=== PATIENT | female | born 1935 | race Caucasian/White ===

== ENCOUNTER 2018-01-25 08:43 | Day surgery (SDC) | payer MEDICARE, OTHER, SELFPAY ==
[2018-01-25 09:42] VITALS: BP 122/59; PULSE 77; RESP 16; TEMP 36.6; O2SAT 99; BMI 21.4
[2018-01-25] MEDS: 0.9% Normal Saline 1,000 ML 40 ML IV (10:40)
--- NOTE | 2018-01-25 10:50 | NURSING ---
urine obtained by straight cath.
[2018-01-25 10:53] LABS: Absolute Lymphocyte Count 1.99 X10^3/ul (0.83-4.51); Absolute Neutrophil Count 5.5 X10^3/uL (2.0-7.7); Basophil# 0.03 X10^3/uL; Basophil% 0.4 % (0-1); Eosinophil# 0.22 X10^3/uL; Eosinophils% 2.6 % (0-5); Hematocrit 34.3 % (37-47); Hemoglobin 10.2 g/dl (12.0-15.0); Lymphocyte # 1.99 X10^3/ul (4.0); Lymphocyte % 23.8 % (19-41); Mean Corp Hgb Conc 29.7 g/gl (32-36); Mean Corpuscular Hgb 23.3 pg (27.0-32.0); Mean Corpuscular Volume 78.5 fL (81-99); Mean Platelet Vol. 8.4 fl (6.2-12.0); Monocyte# 0.62 X10^3/uL; Monocyte% 7.4 % (0-10); Neutrophil # 5.48 X10^3/uL (2.7-7.7); Neutrophil % 65.6 % (47-70); Platelet Count 543 K/mm3 (150-450); RBC Distribution Width CV 23.2 % (11.6-14.6); RBC Distribution Width SD 66.3 fl (35.1-43.9); Red Blood Count 4.37 M/mm3 (4.2-5.4); White Blood Count 8.4 K/mm3 (4.4-11.0)
--- NOTE | 2018-01-25 10:54 | HP.PCM_ITS ---
History and Physical Date of Admission: 01/25/18 HISTORY AND PHYSICAL ? Sylvia Greenfield 1935 ? REFERRING PHYSICIAN: ~~Seferino Wheeler III, MD ? CHIEF COMPLAINT: ~~Consult (anemia) ? HPI: The patient is a 82 year old female referred for endoscopy. ~Sylvia notes the following GI complaints: ~~Sylvia denies abdominal pain.. ~Sylvia~ notes occasional~diarrhea. ~~Sylvia denies~constipation. ~Sylvia denies~a change in bowel habits. ~Sylvia is uncertain about~melena. ~Sylvia denies~ bright red blood per rectum. ~~~Sylvia denies~hemorrhoids. ~ ? The patient had a syncopal episode and presented to [facility] on January 07, 2018. ~She was found to have severe anemia with initial hemoglobin of 7.2 with iron deficiency parameters and his serum iron level of less than 10. ~The patient had negative troponins performed. ~She had an echocardiogram performed which was normal. ~She was transfused 3 units of packed red cells. ~She had a urinalysis which was consistent with a urinary tract infection but denies UTI symptoms. ~She was not treated for her contaminated urine and no culture was obtained. ~Stool was guaiac positive ? 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 ~She has decreased ability to maintain her activities of daily living, she has decubitus ulcers. ~She has trouble ambulating and difficulty getting to the bathroom. ? She is dependent upon her wheelchair for ambulation and needs assistance at home for these activities of daily living. ? She had a previous colonoscopy , but cannot remember the location or date. ~She has not had previous upper endoscopy. ~She is on Coumadin for a history of blood clots. ~She understands this is venous not arterial ? The patient is being seen by me today at the request of Dr. Seferino Wheeler III MD~for my opinion and advice regarding anemia, likely GI source. ? ? PAST?MEDICAL?HISTORY PAST MEDICAL HISTORY Diagnosis Date ? Abnormal stress test 06/14/2010 ? 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 ~ TTE 06/16 showed normal EF, 50-55%. ? Asthma ? ? DVT (deep venous thrombosis) (HCC) 07/04/2010 ? DVT, lower extremity, recurrent (HCC) 06/10/2014 ? Esophagitis ? ? Essential hypertension, benign ? ? Hyperlipidemia LDL goal < 100 07/16/2013 ? Hypothyroidism 10/08/2010 ? long-term prescription opiate use 12/08/2017 ? Osteoarthritis of hip ? ? Osteoporosis, unspecified ? ? Osteoporosis ? Other specified anemias ? ? Peripheral vascular disease (HCC) ? ? Pulmonary embolus (HCC) 07/04/2010 ? Rheumatoid arthritis involving multiple sites (HCC) 10/10/2015 ? Rheumatoid arthritis(714.0) ? ? Unspecified hemorrhoids without mention of complication ? ? Hemorrhoids ? ? PAST?SURGICAL?HISTORY PAST SURGICAL HISTORY Procedure Laterality Date ? AMPUTATE LEG AT THIGH Left 02/2012 ? CHOLECYSTECTOMY ? ? ? COLONOSCOP W/ OR W/O [facility] SPEC ? 01-28-05 ? Colonoscopy-repeat in ? EGD W/O OR W/BRUSH/WASH ? ? ? EGD ? TOTAL HIP REPLACEMENT ? ? ? Hip replacement, total ~LEFT AND RIGHT ? TOTAL KNEE REPLACEMENT ? ? ? Knee replacement, total ~BILATERAL ? ? CURRENT?MEDICATIONS ? Current Outpatient Prescriptions: warfarin (COUMADIN) 1 mg tablet 1 mg Fridays and 0.5 mg all other days cyanocobalamin (VITAMIN B-12) 1,000 mcg/mL soln Inject 1,000 mcg intramuscularly once each week. pantoprazole DR (PROTONIX) 40 mg tablet Take 40 mg by mouth once daily. cyanocobalamin 1,000 mcg/mL soln Inject 1 mL intramuscularly once every month. ferrous sulfate 325 mg (65 mg iron) tablet Take 1 tablet by mouth twice daily. mometasone (ELOCON) 0.1 % cream Apply 1 application to affected area once daily. simvastatin (ZOCOR) 20 mg tablet Take 1 tablet by mouth daily at bedtime. HYDROcodone-acetaminophen (NORCO) 5-325 mg per tablet Take 1 tablet by mouth every 6 hours as needed for Pain for up to 60 days.Earliest Fill Date: 12/08/17 lisinopril (ZESTRIL, PRINIVIL) 40 mg tablet Take 1 tablet by mouth every morning. Levothyroxine 75 mcg cap Take 75 mcg by mouth once daily. amLODIPine (NORVASC) 5 mg tablet Take 1 tablet by mouth once daily. FLUoxetine (PROZAC) 20 mg capsule Take 1 capsule by mouth once daily. polyethylene glycol 3350 (MIRALAX) 17 gram/dose powder 17 gram/8 oz water by mouth daily albuterol HFA 90 mcg/actuation inhaler Inhale 2 Puffs as instructed every 4 hours as needed. FOR WHEEZING AND SHORTNESS OF BREATH. ? No current facility-administered medications for this visit. ? ALLERGIES: Augmentin [Amoxicillin-Pot Clavulanate]; Ceftriaxone; Celecoxib; Imuran [Azathioprine Sodium]; Lodine [Etodolac]; Methotrexate; Nsaids (Non- Steroidal Anti-Inflammatory Drug); Penicillins; Purine Antagonist Antimetabolite ; Sulfamethoxazole-Trimethoprim ? PERSONAL HISTORY: SOCIAL?HISTORY Social History ~~Marital status: ~~~~~~~~~~~~Spouse name: ~~~~~~~~~~~~~~~~~~ ~~Years of education: ~~~~~~~~~~~~~~~~Number of children: ~~~~~~~~~~ ? Social History Main Topics ~~Smoking status: Never Smoker ~~~~~~~~~~~~~~~~~~~~~~~~~~~~~~~~~~~~~~~~~~~~~~~~~ ~~~~~~~~ ? ~~Smokeless status: Never Used ~~~~~~~~~~~~~~~~~~~ ~~Alcohol use: No ~~~~~~~~~ ~~Drug use: No ~~~~~~~~~ ? FAMILY HISTORY: FAMILY?HISTORY FAMILY HISTORY Problem Relation Age of Onset ? Hearing Loss Mother ? ? Heart Father ? ? Stroke Father ? ? Cancer Sister ? ? ? SKIN ? Cancer Brother ? ? ? SKIN ? Diabetes Brother ? ? Diabetes Sister ? ? Stroke Brother ? ? ASHD [OTHER] Brother ? ? Heart Other ? ? ? 2 nephews from heart disease ? ASHD [OTHER] Brother ? ? ? CABG 4 ? REVIEW OF SYMPTOMS: ~~The review of systems data was entered by the nurse and reviewed by me ? Nursing Notes: Ashlyn Taryn FAN ~01/22/2018 ~2:53 PM ~Signed REVIEW OF SYSTEMS: ~~~~~General:~~~The patient NOTES fatigue, denies weight loss, denies weight gain, denies feeling hot, and denies feelings of cold. ~~~~~Eyes: ~The patient denies glaucoma, NOTES eye injury/surgery, wears glasses or contacts. ~~~~~Ear/Nose/Throat: ~The patient denies allergies, denies hayfever, denies ear infections, and denies bloody noses. ~~~~~Cardiovascular: ~The patient denies chest pain, denies heart disease, NOTES high blood pressure,denies cardiac stent, denies prior heart attack, NOTES irregular heart beat, NOTES high cholesterol, ~denies poor circulation, denies heart failure, other cardiac issues, denies claudication, denies cold feet, denies peripheral arterial stent. ~~~~~Respiratory: ~The patient denies tuberculosis, denies pneumonia, denies frequent cough, NOTES pulmonary embolism, denies shortness of breath, and denies coughing up blood. ~~~~~Gastrointestinal: ~The patient denies difficulty swallowing, NOTES acid reflux, denies ulcers, denies vomiting, denies jaundice/hepatitis, denies gallbladder problems, NOTES black or tarry stools, denies hemorrhoids, denies bleeding from rectum, denies diverticulitis, denies constipation, denies diarrhea, denies loss of stool control, and denies hernias. ~~~~~Kidney/Bladder: ~The patient denies kidney stones, denies urine infections , and denies bloody urine. ~~~~~Skin: ~The patient denies a history of skin cancer, denies bleeding/ changing moles, and NOTES a history of skin rash. ~~~~~Neurologic: ~The patient denies a history of epilepsy/convulsions, denies headaches, denies head/spinal injuries, and denies stroke/TIA. ~~~~~Psychiatric: ~The patient denies psychiatric medications, denies depression , and denies voices, denies substance abuse. ~~~~~Endocrine: ~The patient NOTES thyroid disorders, denies diabetes, and denies hormonal problems. ~~~~~Hematologic: ~The patient NOTES a history of bruising, denies bleeding, and NOTES anemia, NOTES blood clots. ~~~~~Infections: ~The patient denies a history of measles and mumps, denies rheumatic fever, and denies sexually transmitted diseases. ~~~~~Musculoskeletal: ~The patient denies back pain/injury, NOTES back problems , denies sciatica, denies knee/foot trouble, NOTES arthritis, or denies gout. ? ? When was patient's last Mammogram screening? N/A ? ~Last Colonoscopy: ~none ? Ashlyn Centeno LPN ?? PHYSICAL EXAMINATION: ? General: ~The patient is 82 year old female, well nourished, well hydrated in no acute distress. ~The patient is oriented to time, place, and person. ? VITALS: Blood pressure 120/60, pulse 76, weight 60.3 kg (133 lb).~Body mass index is 22.82 kg/(m^2).~ ? HEENT: ~Normal cephalic, ataumatic, pupils are equally round, sclera are anicteric, mucous membranes are moist, oropharynx is clear. ~Neck has no masses , asymmetry or lymphadenopathy. ~Thyroid is unremarkable. ? Respiratory: ~Clear to auscultation and percussion. ~Normal respiratory excursion and pattern. ? Cardiac: ~Examination is regular rate and rhythm. ? Abdominal exam: ~Soft, nontender, ~with no palpable masses. ~No hepatosplenomegaly. ~No palpable hernias. ? Rectal exam: exam deferred - grade 2 decubitus approximately 2 x 2 centimeters tip of the coccyx and multiple more superficial, grade 2, 1 decubiti in the perianal skin. ? Extremities: ~no clubbing, cyanosis or edema. ~No adenopathy. - Status~post left lower extremity above-knee amputation ? Other: ? LABORATORY VALUES: As Noted ? RADIOLOGIC STUDIES: ~As Noted ? Assessment ~ IMPRESSION: Syncope, iron deficiency anemia, heme positive stools, likely GI bleed, impaired activities of daily living, wheelchair dependent, status post left lower extremity amputation. ? PLAN: ~I plan to perform upper and lower~endoscopy. ~~We discussed the risks and benefits of the planned endoscopy. ~I have informed the patient that complications can occur including failure to complete the endoscopy and perforation. ~The patient had the opportunity to ask questions concerning the planned endoscopy. ~My staff has also explained the procedure to the patient in understandable terms and has given the patient printed material concerning the procedure. ~The patient freely consents to surgery. ? I plan to use golytely bowel preparation for endoscopy. ? Due to the patient's wheelchair dependency and impaired activities of daily living. ~I plan to admit her to the hospital for bowel preparation. ~I also plan to repeat urinalysis and urine culture. ~I plan to hydrate her with IV fluids, given her history of hypertension and syncope in spite of her normal echocardiogram. ? The patient has medical comorbidities for which I plan to perform the procedure under monitored anesthetic care. will have wound care nurse assess her perianal area/decubiti, anticipated need for better unloading and nutrition. ? Diagnoses: (D50.9) Iron deficiency anemia, unspecified iron deficiency anemia type ~(primary encounter diagnosis) (R55) Syncope, unspecified syncope type (R01.1) Murmur (R82.90) Abnormal finding in urine ? My findings have been communicated to Dr. Abhay Wheeler III MD~via shared medical record. ~This note will be forwarded to Dr. Seferino Wheeler III MD. ?? Return to Clinic: The patient is instructed to follow-up with me after the testing has been completed. ?
[2018-01-25 11:05] LABS: Differential Indicated SCAN CRITERIA MET; POSITIVE COUNT NO; POSITIVE DIFFERENTIAL NO; POSITIVE MORPHOLOGY YES
[2018-01-25 11:06] LABS: Anisocytosis 2+; Differential Comment SCANNED; Macrocytosis 1+; Microcytosis 1+
[2018-01-25 11:07] LABS: Mucous, Urine 0 SEEN /hpf (<or=2+); Red Blood Cells-Urine 0 SEEN /hpf (0-5); Squamous Epithelial Cells - UA 0 SEEN /hpf (5-10)
[2018-01-25 11:10] LABS: Color, Urine Yellow (Yellow); Glucose, Dipstick Normal (Normal); Ketone-Dipstick Negative (Negative); Leukocyte Esterase-Dipstick 100 /ul (Negative); Nitrite-Dipstick Positive (Negative); Occult Blood-Urine 25 /ul (Negative); Protein-Dipstick 15 mg/dl (Negative); Specific Gravity, Urine 1.015 (1.002-1.030); Urine Bilirubin Dipstick Negative (Negative); Urine Clarity Clear (Clear); Urine Urobilinogen Normal (Normal)
[2018-01-25 11:16] LABS: Bacteria 2+ /hpf (None Seen); White Blood Cells 5-10 SEEN /hpf (0-5)
[2018-01-25 11:21] LABS: ALB/GLOB Ratio 0.5 RATIO (0.9-2.4); AST(SGOT) 8 U/L (15-37); Alanine Aminotransfer ALT/SGPT 7 U/L (13-56); Albumin, Serum 2.1 g/dL (3.2-5.0); Alkaline Phosphatase 118 U/L (45-117); Anion Gap 6 (5-15); BUN 11 mg/dL (7-18); BUN/Creat Ratio 19.5 RATIO (10-20); Calcium,Total 7.9 mg/dL (8.5-10.1); Chloride 107 mmol/L (98-107); Creatinine, Serum 0.56 mg/dL (0.55-1.02); EST Glomerular Filtration Rate 110 mL/min (>60); Est Glom Filt Rate - Afr Amer 133 mL/min (>60); Estimated Creatinine Clearance 38.75 ml/min; Globulin 4.4 g/dL (2.2-4.2); Glucose 106 mg/dL (74-106); Potassium 3.5 mmol/L (3.5-5.1); Protein, Total 6.5 g/dL (6.4-8.2); Sodium Level 142 mmol/L (136-145)
[2018-01-25 11:53] VITALS: RESP 18
[2018-01-25] MEDS: HYDROcodone Bitartrate/Apap 5/325 Tablet PO ×2 (12:22→19:33)
[2018-01-25 15:00] VITALS: BP 131/62; PULSE 80; RESP 18; TEMP 36.6; O2SAT 98
[2018-01-25] MEDS: Electrolyte Solution/Peg's 4000 ML PO (16:32)
[2018-01-25 20:08] VITALS: BP 124/56; PULSE 84; RESP 18; TEMP 37; O2SAT 95
[2018-01-25 20:29] VITALS: BMI 21.4
[2018-01-25 20:56] VITALS: PULSE 84; RESP 18; O2SAT 95
[2018-01-26] VITALS (8 sets, daily range): BP systolic 104–135; BP diastolic 50–90; PULSE 77–91; RESP 14–80; TEMP 36.6–37.4; O2SAT 95–100
--- NOTE | 2018-01-26 | IMM_PTH ---
PATIENT: DEMETRIO KAISER LOC: EN U#:[id number] AGE/SX: 82/F ROOM: RE01/25/[address]: Dr. Carl Zhu MD : 1935 BED: DIS: 01/26/2018 SPEC #: [id number] RECD: 01/28/18 11:43 STATUS: HEATHER REQ #: [id number] SARA: 01/26/18 00:[address]: Carl Zhu DEPT: IMMUNOHISTOCHEMISTRY RECD BY: Lyn Mcneil ENTERED: 01/28/18 11:44 SP TYPE: IMMUNO OTHR DR: Dr. Seferino Wheeler III, MD Tissues: A - Stomach, NOS Procedures: H Pylori (initial) PHYSICIAN & INSTITUTION [place] [id number] SPECIMEN INFORMATION: Tissue Source: A ? Antrum biopsy Clinical Info: Anemia Specimen Number: [id number] CPT code: 29046 METHODOLOGY: Deparaffinized sections of prefer/formalin-fixed tissue or PAP/DQ stained slides are incubated with monoclonal/polyclonal antibodies/oligonucleotide probes. Localization is made via biotin free immunoperoxidase method. Appropriate controls are performed and reacted as expected. Results on target cell population are indicated in the following table: RESULTS: ANTIBODY / CLONE RESULT Block A H Pylori (polyclonal) negative These tests were developed and their performance characteristics determined by [facility]. They may not have been cleared or approved by the U.S. Food and Drug Administration. The FDA has determined that such clearance or approval is not necessary. INTERPRETATION: A. Antrum biopsy: Negative for Helicobacter pylori organisms. SJ:cheri 01/29/18
[2018-01-26] MEDS: HYDROcodone Bitartrate/Apap 5/325 Tablet PO ×3 (01:37→14:49)
--- NOTE | 2018-01-26 06:00 | EKG12_ITS ---
Test Reason : MORNING EKG Blood Pressure : / mmHG Vent. Rate : 081 BPM Atrial Rate : 081 BPM P-R Int : 158 ms QRS Dur : 082 ms QT Int : 380 ms P-R-T Axes : 042 -10 023 degrees QTc Int : 441 ms Normal sinus rhythm Low voltage QRS Nonspecific T wave abnormality Abnormal ECG When compared with ECG of 13-JUN-2010 04:03, Nonspecific T wave abnormality now evident in Anterolateral leads Confirmed by RONNI KWAN ([id number]), scientific publications editor FARHANA GALAN ([id number]) on 02/05/2018 2:47:45 PM Referred By: Carl Zhu Confirmed By:RONNI KWAN
[2018-01-26] MEDS: Nystatin Powder 15gm Bottle 1 APPLIC TOPICAL ×2 (06:50→14:50)
--- NOTE | 2018-01-26 07:07 | PCM.PN.SRG ---
Subjective: finishing bowel prep - Physical Exam Lungs: Clear to auscultation, Normal air movement Cardiovascular: Regular rate, Murmur Abdomen: Bowel Sounds Present, Soft, Hyperactive Bowel Sounds Vital Signs Temp Pulse Resp BP Pulse Ox 98 F 77 18 130/57 H 99 01/26/18 02:00 01/26/18 02:00 01/26/18 02:00 01/26/18 02:00 01/26/18 02:00 Oxygen Flow Rate (L/min) 1 Oxygen Delivery Method Nasal Cannula Weight: 56.6 kg Body Mass Index (BMI) 21.4 Intake and Output for Last 24 Hours 01/24/18 01/25/18 01/26/18 22:59 23:59 23:59 Intake Total 4463 / 4463 Output Total 300 / 300 Balance 4163 / 4163 Laboratory Tests Past 24 Hrs 01/25/18 01/25/18 01/25/18 10:37 10:37 11:00 WBC 8.4 RBC 4.37 Hgb 10.2 L Hct 34.3 L MCV 78.5 L MCH 23.3 L MCHC 29.7 L RDW 23.2 H RDW Differential 66.3 H Plt Count 543 H MPV 8.4 Immature Gran % (Auto) 0.200 Neut % (Auto) 65.6 Lymph % (Auto) 23.8 [place] % (Auto) 7.4 Eos % (Auto) 2.6 Baso % (Auto) 0.4 Absolute Neuts (auto) 5.5 Absolute Lymphs (auto) 1.99 Total Counted Not Reportable Differential Comment SCANNED Anisocytosis 2+ Microcytosis 1+ Macrocytosis 1+ Sodium 142 Potassium 3.5 Chloride 107 Carbon Dioxide 29.0 Anion Gap 6 BUN 11 Creatinine 0.56 Estim Creat Clear Calc 38.75 Est GFR (MDRD) Af Amer 133 Est GFR (MDRD) Non-Af 110 BUN/Creatinine Ratio 19.5 Glucose 106 Calcium 7.9 L Total Bilirubin 0.20 AST 8 L ALT 7 L Alkaline Phosphatase 118 H Total Protein 6.5 Albumin 2.1 L Globulin 4.4 H Albumin/Globulin Ratio 0.5 L Urine Color Yellow Urine Clarity Clear Urine pH 6.0 Ur Specific [place] 1.015 Urine Protein 15 H Urine Glucose (UA) Normal Urine Ketones Negative Urine Occult Blood 25 H Urine Nitrite Positive H Urine Bilirubin Negative Urine Urobilinogen Normal Ur Leukocyte Esterase 100 H Urine RBC 0 SEEN Urine WBC 5-10 SEEN Ur Squamous Epith Cells 0 SEEN Urine Bacteria 2+ Urine Mucus 0 SEEN Assessment/Plan I plan to perform upper and lower~endoscopy. ~~We discussed the risks and benefits of the planned endoscopy. ~I have informed the patient that complications can occur including failure to complete the endoscopy and perforation. ~The patient had the opportunity to ask questions concerning the planned endoscopy. ~My staff has also explained the procedure to the patient in understandable terms and has given the patient printed material concerning the procedure. ~The patient freely consents to surgery. ? I plan to use golytely bowel preparation for endoscopy. - she will complete ? Due to the patient's wheelchair dependency and impaired activities of daily living. ~I plan to admit her to the hospital for bowel preparation. ~I also plan to repeat urinalysis and urine culture. - U/A still contaminated - will start nitrofurantion I plan to hydrate her with IV fluids, given her history of hypertension and syncope in spite of her normal echocardiogram. ? The patient has medical comorbidities for which I plan to perform the procedure under monitored anesthetic care. will have wound care nurse assess her perianal area/decubiti, anticipated need for better unloading and nutrition.
[2018-01-26] MEDS: 0.9% Normal Saline 1,000 ML 40 ML IV ×2 (10:58→14:19)
--- NOTE | 2018-01-26 12:43 | CHAPLAIN ---
patient was being readied for surgery; family members were offered support; title curative specialist of patient had been to see her and had offered prayer; no new needs evident
--- NOTE | 2018-01-26 13:34 | EGD_PTH ---
PATIENT: DEMETRIO KAISER LOC: EN U#:[id number] AGE/SX: 82/F ROOM: RE01/25/[address]: Dr. Carl Zhu MD : 1935 BED: DIS: 01/26/2018 SPEC #: [id number] RECD: 01/26/18 15:55 STATUS: HEATHER REKemal #: [id number] SARA: 01/26/18 13:[address]: Carl Zhu DEPT: SURGICAL PATHOLOGY RECD BY: Jose Caputo ENTERED: 01/27/18 12:19 SP TYPE: EGD BIOPSY OT DR: Dr. Seferino hWeeler III, MD Tissues: A - Gastric mucous membrane B - Gastric mucous membrane Procedures: Special Stain Group II Surgery Specimen Level IV Alcian Blue/PAS (control) HEADER OPERATION: EGD with biopsy PRE-OP DIAGNOSIS: Anemia TISSUE SUBMITTED: A ? Antrum biopsy, H. pylori and path, B ? GE junction MICROSCOPIC DIAGNOSIS A. Antrum, biopsy: Mild gastritis. B. GE junction, biopsy: Fragments of gastroesophageal mucosa with acute and chronic inflammation. Negative for intestinal metaplasia (goblet cell metaplasia). See comment. SJ:rg 01/28/18 COMMENT A. The results of immunohistochemistry for Helicobacter pylori will be reported separately ([id number]). B. The specimen predominantly consists of squamous epithelium. Alcian blue/PAS stain with matched control is used in the evaluation of the specimen. MICROSCOPIC DESCRIPTION Slides are reviewed. A. The specimen shows fragments of gastric mucosa with chronic inflammatory cell infiltrates in the lamina propria consisting of lymphocytes and plasma cells, consistent with mild chronic gastritis. GROSS DESCRIPTION A - Received in fixative is one container labeled with the patient's name and designated gastric antrum. The specimen consists of multiple irregular fragments of light frazier soft tissue that in aggregate measure 1 x 0.3 x 0.1 cm. The specimen is totally submitted in one cassette. B - Received in fixative is one container labeled with the patient's name and designated GE junction. The specimen consists of one irregular fragment of light frazier soft tissue that measures 0.4 x 0.2 x 0.1 cm. The specimen is totally submitted in one cassette. / AM:cheri 01/27/18 TC:5 CPT: 06293 x2, 63788
--- NOTE | 2018-01-26 15:02 | PCM.OPRPT ---
Report of Operation Date of Procedure: 01/26/18 Pre-Operative Diagnosis: anemia Post-Operative Diagnosis: none bleeding. Duodenal AVM, mild gastritis, moderate to large type I hiatal hernia, distal esophagitis. Normal colonoscopy. Normal-appearing terminal ileum Surgery/Procedure Performed:: EGD with biopsy, colonoscopy manager operational: None Specimen's removed: gastric antrum for H. pylori and pathology, distal esophagus Description of Procedure: The patient was brought to the endoscopy suite. Sign in was performed verifying patient, site, planned procedure, critical nursing information, the patient was monitored with cardiac, pulse oximetric, and blood pressure monitoring devices. Monitored anesthetic care was provided for sedation. Following IV sedation and after the oropharynx was sprayed with Cetacaine spray, a video gastroscope was inserted in the oropharynx and advanced down the esophagus without difficulty. The scope was advanced through the stomach, through the pylorus through the duodenum to the proximal jejunum. the jejunum appeared unremarkable. The duodenum demonstrated no signs of specific inflammation, but in the bulb. There was approximately a 3 mm AVM area. There were no signs of bleeding noted with this AVM. There was mild antral gastritis. A biopsy was taken for H. pylori and pathology. The scope was retroflexed-there was a moderate to large hiatal hernia. There was distal esophagitis consistent with reflux esophagitis. A biopsy was taken just proximal to the GE junction. The remainder of the esophagus was unremarkable. The patient was positioned for colonoscopy. A digital rectal exam was performed which revealed no palpable abnormalities. The video colonoscope was inserted and advanced to the cecum as verified by the ileocecal valve, cecal base anatomic features and palpation. the scope was inserted into the terminal ileum. There were no abnormalities noted. The terminal ileum. As the scope was withdrawn, the entire colon was unremarkable. There were a few sigmoid diverticula. The scope was retroflexed and this was unremarkable. The patient tolerated the procedure well and was brought to recovery in stable condition
--- NOTE | 2018-01-26 15:28 | PCM.PN.SRG ---
Subjective: tolerated bowel prep - Physical Exam General: Alert, Oriented x3 Lungs: Clear to auscultation, Normal air movement Cardiovascular: Regular rate, Regular Rhythm Abdomen: Bowel Sounds Present, Soft, Non Tender Vital Signs Temp Pulse Resp BP Pulse Ox 98.8 F 79 14 128/64 H 100 01/26/18 14:44 01/26/18 14:44 01/26/18 14:44 01/26/18 14:44 01/26/18 14:44 Oxygen Flow Rate (L/min) 1 Oxygen Delivery Method Room Air Weight: 56.6 kg Body Mass Index (BMI) 21.4 Intake and Output for Last 24 Hours 01/24/18 01/25/18 01/26/18 22:59 23:59 23:59 Intake Total 6049 / 6049 Output Total 550 / 550 Balance 5499 / 5499 Microbiology Past 72 Hours 01/25/18 11:00 Urine Culture - Preliminary Urine Catheter - Catheter GNR lactose stave and bolt equalizer Assessment/Plan I plan to perform upper and lower~endoscopy. ~~We discussed the risks and benefits of the planned endoscopy. ~I have informed the patient that complications can occur including failure to complete the endoscopy and perforation. ~The patient had the opportunity to ask questions concerning the planned endoscopy. ~My staff has also explained the procedure to the patient in understandable terms and has given the patient printed material concerning the procedure. ~The patient freely consents to surgery. ? Due to the patient's wheelchair dependency and impaired activities of daily living. ~I admitted her to the hospital for bowel preparation. also plan to repeat urinalysis and urine culture. - U/A still contaminated - started nitrofurantoin - Culture less than 100K organisms - will stop abx wound care nurse assessed her perianal area/decubiti, anticipated need for better unloading and nutrition.
--- NOTE | 2018-01-26 15:33 | PN.SURG_ITS ---
Subjective: tolerated bowel prep - Physical Exam General: Alert, Oriented x3 Lungs: Clear to auscultation, Normal air movement Cardiovascular: Regular rate, Regular Rhythm Abdomen: Bowel Sounds Present, Soft, Non Tender Vital Signs Temp Pulse Resp BP Pulse Ox 98.8 F 79 14 128/64 H 100 01/26/18 14:44 01/26/18 14:44 01/26/18 14:44 01/26/18 14:44 01/26/18 14:44 Oxygen Flow Rate (L/min) 1 Oxygen Delivery Method Room Air Weight: 56.6 kg Body Mass Index (BMI) 21.4 Intake and Output for Last 24 Hours 01/24/18 01/25/18 01/26/18 22:59 23:59 23:59 Intake Total 6049 / 6049 Output Total 550 / 550 Balance 5499 / 5499 Microbiology Past 72 Hours 01/25/18 11:00 Urine Culture - Preliminary Urine Catheter - Catheter 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 ~~We discussed the risks and benefits of the planned endoscopy. ~I have informed the patient that complications can occur including failure to complete the endoscopy and perforation. ~The patient had the opportunity to ask questions concerning the planned endoscopy. ~My staff has also explained the procedure to the patient in understandable terms and has given the patient printed material concerning the procedure. ~The patient freely consents to surgery. ? Due to the patient's wheelchair dependency and impaired activities of daily living. ~I admitted her to the hospital for bowel preparation. also plan to repeat urinalysis and urine culture. - U/A still contaminated - started nitrofurantoin - Culture less than 100K organisms - will stop abx wound care nurse assessed her perianal area/decubiti, anticipated need for better unloading and nutrition.
--- NOTE | 2018-01-26 15:39 | PCM.DC.SUM ---
Discharge Date and Diagnosis Date of Admission: 01/25/18 Date of Discharge: 01/26/18 - Primary Discharge Diagnosis anemia Malnutrition decubitus Impaired activities daily living status post above-knee amputation - Secondary Discharge Diagnosis Chronic Problems Osteoporosis (Chronic) Hypothyroidism (Chronic) Warfarin-induced coagulopathy (Chronic) hx VT-chronic Hypertension (Chronic) DVT (deep venous thrombosis) (Chronic) Hyperlipidemia (Chronic) Osteoarthritis of hips, bilateral (Chronic) Hospital Course and Treatment Consultations 01/25/18 10:54 Consult: Onc/Wound/cogeneration technician Routine Comment: Reason for Consult:: decubiti Operations: None Procedures: Colonoscopy, EGD Summary of Care Provided: The patient is a 82 year old F female who was admitted to [facility] following a syncopal episode and presumed GI bleed. She was found to have iron deficiency anemia and transfused 3 units of packed cells. She was discharged to home. She was referred to me for upper and lower endoscopy due to anemia. The patient has a complicated past medical history including malnutrition and impaired activities of daily living, her wheelchair dependency, status post a left above-knee amputation. She is admitted to the hospital for bowel prep due to her inability to ambulate. On admission she was found to have a stage II sacral decubiti and stage I initial tuberosity decubiti. She was evaluated by the wound care nurse who will make recommendations for offloading and wound care. patient was found to have an albumin level of 2.1. Upper and lower endoscopy was performed which demonstrated a moderately large type I hiatal hernia with distal esophagitis with a duodenal AVM, but no signs of recent bleeding. Colonoscopy demonstrated normal colon and normal terminal ileum. The patient will be discharged home with plans to help my office in one week. She is already being maintained on a proton pump inhibitor. Home Medications: Medications to take at Discharge RX: Levothyroxine [Synthroid] 100 mcg PO DAILY 07/28/16 RX: Lisinopril [Zestril] 40 mg PO DAILY 07/28/16 RX: Simvastatin [Zocor] 20 mg PO QHS 07/28/16 RX: Warfarin [Coumadin] 0.5 mg PO SUMOTUWETHSA 07/28/16 RX: Warfarin [Coumadin] 1 mg PO FR 07/28/16 Ondansetron [Zofran Odt] 4 mg PO Q8H PRN PRN #10 tablet 09/04/16 RX: Polyethylene Glycol 3350 [Miralax] 17 gm PO DAILY PRN 09/04/16 Acetaminophen [Tylenol Extra Strength] 500 mg PO Q6H 01/25/18 Hydrocodone Bitart/Apap 5-325 [[place] 5MG-325MG] 1 tablet PO Q6H PRN PRN 01/25/18 Pantoprazole Sodium [Pantoprazole Sodium] 40 mg PO DAILY PRN PRN 01/25/18 RX: Amlodipine [Norvasc] 5 mg PO DAILY 01/25/18 RX: Calcium Carbonate/Vitamin D3 [Os-Pollo 500-Vit D3 600 Caplet] 1 each PO BID 01/25/18 RX: Cholecalciferol (Vitamin D3) [D3-2000] 2,000 unit PO DAILY 01/25/18 RX: Iron Polysaccharide Complex [Ferrex 150] 150 mg PO DAILYCM 01/25/18 Primary Care Physician: Seferino Wheeler III, MD [Primary Care Provider] - Meaningful Use Info Meaningful Use Diagnoses (Choose all that apply): None applicable
--- NOTE | 2018-01-26 15:50 | DS.PCM_ITS ---
Discharge Date and Diagnosis Date of Admission: 01/25/18 Date of Discharge: 01/26/18 - Primary Discharge Diagnosis anemia Malnutrition decubitus Impaired activities daily living status post above-knee amputation - Secondary Discharge Diagnosis Chronic Problems Osteoporosis (Chronic) Hypothyroidism (Chronic) Warfarin-induced coagulopathy (Chronic) hx VT-chronic Hypertension (Chronic) DVT (deep venous thrombosis) (Chronic) Hyperlipidemia (Chronic) Osteoarthritis of hips, bilateral (Chronic) Hospital Course and Treatment Consultations 01/25/18 10:54 Consult: Onc/Wound/production floater Routine Comment: Reason for Consult:: decubiti Operations: None Procedures: Colonoscopy, EGD Summary of Care Provided: The patient is a 82 year old F female who was admitted to [facility] following a syncopal episode and presumed GI bleed. She was found to have iron deficiency anemia and transfused 3 units of packed cells. She was discharged to home. She was referred to me for upper and lower endoscopy due to anemia. The patient has a complicated past medical history including malnutrition and impaired activities of daily living, her wheelchair dependency, status post a left above-knee amputation. She is admitted to the hospital for bowel prep due to her inability to ambulate. On admission she was found to have a stage II sacral decubiti and stage I initial tuberosity decubiti. She was evaluated by the wound care nurse who will make recommendations for offloading and wound care. patient was found to have an albumin level of 2.1. Upper and lower endoscopy was performed which demonstrated a moderately large type I hiatal hernia with distal esophagitis with a duodenal AVM, but no signs of recent bleeding. Colonoscopy demonstrated normal colon and normal terminal ileum. The patient will be discharged home with plans to help my office in one week. She is already being maintained on a proton pump inhibitor. Home Medications: Medications to take at Discharge RX: Levothyroxine [Synthroid] 100 mcg PO DAILY 07/28/16 RX: Lisinopril [Zestril] 40 mg PO DAILY 07/28/16 RX: Simvastatin [Zocor] 20 mg PO QHS 07/28/16 RX: Warfarin [Coumadin] 0.5 mg PO SUMOTUWETHSA 07/28/16 RX: Warfarin [Coumadin] 1 mg PO FR 07/28/16 Ondansetron [Zofran Odt] 4 mg PO Q8H PRN PRN #10 tablet 09/04/16 RX: Polyethylene Glycol 3350 [Miralax] 17 gm PO DAILY PRN 09/04/16 Acetaminophen [Tylenol Extra Strength] 500 mg PO Q6H 01/25/18 Hydrocodone Bitart/Apap 5-325 [[place] 5MG-325MG] 1 tablet PO Q6H PRN PRN Pantoprazole Sodium [Pantoprazole Sodium] 40 mg PO DAILY PRN PRN 01/25/18 RX: Amlodipine [Norvasc] 5 mg PO DAILY 01/25/18 RX: Calcium Carbonate/Vitamin D3 [Os-Pollo 500-Vit D3 600 Caplet] 1 each PO BID RX: Cholecalciferol (Vitamin D3) [D3-2000] 2,000 unit PO DAILY 01/25/18 RX: Iron Polysaccharide Complex [Ferrex 150] 150 mg PO DAILYCM 01/25/18 Primary Care Physician: Seferino Wheeler III, MD [Primary Care Provider] - Meaningful Use Info Meaningful Use Diagnoses (Choose all that apply): None applicable
--- NOTE | 2018-01-26 15:50 | PCM.DC ---
You will use the following diet at home:: No restrictions Discharge Activity: Return to Normal Activity Cleanse incision/area with: - - dressing placed should be good for 5 days unless it gets soiled. Calmoseptine twice a day as directed Allergies/Adverse Reactions: Allergies methotrexate Allergy (Verified 01/25/18 09:49) effect to liver arthritis medications Allergy (Uncoded 01/25/18 09:49) effected the liver Medications to take at Discharge RX: Levothyroxine [Synthroid] 100 mcg PO DAILY 07/28/16 RX: Lisinopril [Zestril] 40 mg PO DAILY 07/28/16 RX: Simvastatin [Zocor] 20 mg PO QHS 07/28/16 RX: Warfarin [Coumadin] 0.5 mg PO SUMOTUWETHSA 07/28/16 RX: Warfarin [Coumadin] 1 mg PO FR 07/28/16 Ondansetron [Zofran Odt] 4 mg PO Q8H PRN PRN #10 tablet 09/04/16 RX: Polyethylene Glycol 3350 [Miralax] 17 gm PO DAILY PRN 09/04/16 Acetaminophen [Tylenol Extra Strength] 500 mg PO Q6H 01/25/18 Hydrocodone Bitart/Apap 5-325 [[place] 5MG-325MG] 1 tablet PO Q6H PRN PRN 01/25/18 Pantoprazole Sodium [Pantoprazole Sodium] 40 mg PO DAILY PRN PRN 01/25/18 RX: Amlodipine [Norvasc] 5 mg PO DAILY 01/25/18 RX: Calcium Carbonate/Vitamin D3 [Os-Pollo 500-Vit D3 600 Caplet] 1 each PO BID 01/25/18 RX: Cholecalciferol (Vitamin D3) [D3-2000] 2,000 unit PO DAILY 01/25/18 RX: Iron Polysaccharide Complex [Ferrex 150] 150 mg PO DAILYCM 01/25/18 Primary Care Physician: Seferino Wheeler III, MD [Primary Care Provider] - Please Follow Up With: Carl Zhu MD When: follow up in one week
== END 2018-01-26 16:40 | disposition home or self-care (01) ==
LOC: EN 08:45 → MS3 08:53
PROVIDERS: Family Provider Family Medicine; PCP Family Medicine; Visit Provider Surgery
PROC: 0DJD8ZZ Inspection of Lower Intestinal Tract, Via Natural or Artificial Opening Endoscopic (ICD-10-PCS; CPT 45378; principal; 2018-01-26 12:55)
DX: K21.0 Gastro-esophageal reflux disease with esophagitis (principal); K29.70 Gastritis, unspecified, without bleeding; K44.9 Diaphragmatic hernia without obstruction or gangrene; Q27.33 Arteriovenous malformation of digestive system vessel; K57.30 Diverticulosis of large intestine without perforation or abscess without bleeding; D50.9 Iron deficiency anemia, unspecified; R01.1 Cardiac murmur, unspecified; R82.90 Unspecified abnormal findings in urine; I49.9 Cardiac arrhythmia, unspecified; J45.909 Unspecified asthma, uncomplicated; Z86.718 Personal history of other venous thrombosis and embolism; Z87.19 Personal history of other diseases of the digestive system; I10 Essential (primary) hypertension; E78.5 Hyperlipidemia, unspecified; E03.9 Hypothyroidism, unspecified; M16.10 Unilateral primary osteoarthritis, unspecified hip; M81.0 Age-related osteoporosis without current pathological fracture; I73.9 Peripheral vascular disease, unspecified; Z86.711 Personal history of pulmonary embolism; M06.9 Rheumatoid arthritis, unspecified; K64.9 Unspecified hemorrhoids; L89.152 Pressure ulcer of sacral region, stage 2; L89.892 Pressure ulcer of other site, stage 2; E46 Unspecified protein-calorie malnutrition; F32.9 Major depressive disorder, single episode, unspecified; F41.9 Anxiety disorder, unspecified; Z87.2 Personal history of diseases of the skin and subcutaneous tissue; Z89.612 Acquired absence of left leg above knee; Z90.49 Acquired absence of other specified parts of digestive tract; Z96.643 Presence of artificial hip joint, bilateral; Z96.653 Presence of artificial knee joint, bilateral; Z99.3 Dependence on wheelchair; Z78.0 Asymptomatic menopausal state; Z79.891 Long term (current) use of opiate analgesic; Z79.01 Long term (current) use of anticoagulants; Z79.899 Other long term (current) drug therapy
CPT/HCPCS: 43239; 45378; 36415; 80053; 81001; 85025; 87077; 87086; 87088; 87186; 88305; 88313; 88342; 93005; 97802; J7030

== ENCOUNTER 2018-02-10 17:18 | Outpatient (RCR) | payer MEDICARE, OTHER, SELFPAY | END 2018-02-14 23:59 | LOC: HHLAB 17:18 | PROVIDERS: Family Provider Family Medicine; Visit Provider Family Medicine | DX: D51.9 Vitamin B12 deficiency anemia, unspecified (principal); L89.312 Pressure ulcer of right buttock, stage 2; L89.322 Pressure ulcer of left buttock, stage 2 | CPT/HCPCS: 87070; 87077; 87186; 87205 ==

== ENCOUNTER 2018-02-23 09:31 | Emergency (ER) | payer MEDICARE, OTHER, SELFPAY ==
[2018-02-23 09:33] VITALS: BP 110/61; PULSE 101; RESP 15; TEMP 36.6; O2SAT 99; BMI 20.6
[2018-02-23 10:15] LABS: Absolute Lymphocyte Count 2.08 X10^3/ul (0.83-4.51); Absolute Neutrophil Count 7.4 X10^3/uL (2.0-7.7); Basophil# 0.04 X10^3/uL; Basophil% 0.4 % (0-1); Eosinophil# 0.28 X10^3/uL; Eosinophils% 2.7 % (0-5); Hematocrit 30.1 % (37-47); Hemoglobin 9.3 g/dl (12.0-15.0); Lymphocyte # 2.08 X10^3/ul (4.0); Lymphocyte % 19.8 % (19-41); Mean Corp Hgb Conc 30.9 g/gl (32-36); Mean Corpuscular Volume 77.8 fL (81-99); Mean Platelet Vol. 8.6 fl (6.2-12.0); Monocyte# 0.68 X10^3/uL; Monocyte% 6.5 % (0-10); Neutrophil # 7.41 X10^3/uL (2.7-7.7); Neutrophil % 70.3 % (47-70); Platelet Count 679 K/mm3 (150-450); RBC Distribution Width CV 23.1 % (11.6-14.6); Red Blood Count 3.87 M/mm3 (4.2-5.4); White Blood Count 10.5 K/mm3 (4.4-11.0)
[2018-02-23 10:16] LABS: Differential Indicated SCAN CRITERIA MET; POSITIVE COUNT NO; POSITIVE DIFFERENTIAL NO; POSITIVE MORPHOLOGY YES
[2018-02-23 10:33] LABS: Anion Gap 10 (5-15); BUN 13 mg/dL (7-18); BUN/Creat Ratio 22.7 RATIO (10-20); Calcium,Total 8.3 mg/dL (8.5-10.1); Chloride 103 mmol/L (98-107); Creatinine, Serum 0.57 mg/dL (0.55-1.02); EST Glomerular Filtration Rate 108 mL/min (>60); Est Glom Filt Rate - Afr Amer 130 mL/min (>60); Glucose 66 mg/dL (74-106); Potassium 3.9 mmol/L (3.5-5.1); Sodium Level 140 mmol/L (136-145)
[2018-02-23 10:42] LABS: Anisocytosis 1+; Hypochromasia 2+; Microcytosis 2+; Platelet Estimate MOD INC (ADEQ)
[2018-02-23 11:14] LABS: Mucous, Urine 0 SEEN /hpf (<or=2+); White Blood Cells 0 SEEN /hpf (0-5)
[2018-02-23 11:16] LABS: Color, Urine Yellow (Yellow); Glucose, Dipstick Normal (Normal); Ketone-Dipstick 50 mg/dl (Negative); Leukocyte Esterase-Dipstick Negative /ul (Negative); Nitrite-Dipstick Negative (Negative); Occult Blood-Urine 10 /ul (Negative); Protein-Dipstick Negative (Negative); Urine Bilirubin Dipstick Negative (Negative); Urine Clarity Sl. Cloudy (Clear); Urine Urobilinogen Normal (Normal)
[2018-02-23] MEDS: 0.9% Normal Saline 1,000 ML 100 ML IV (11:33)
[2018-02-23 11:35] LABS: Bacteria 1+ /hpf (None Seen); Red Blood Cells-Urine 0-5 SEEN /hpf (0-5); Squamous Epithelial Cells - UA 0-5 SEEN /hpf (5-10)
[2018-02-23 12:31] LABS: Bedside Glucose 91 mg/dL (70-110)
[2018-02-23 13:24] VITALS: BP 154/89; PULSE 87; RESP 19; O2SAT 97
--- NOTE | 2018-02-23 13:27 | NURSING ---
Was asked to assess wounds to coccyx. patient is known to this nurse. had assessed wounds when patient was an inpatient on 01/26/18. patient had wound to cleft area as well as some small open areas to bilateral buttocks that appears to be shearing at that time. the wound to the vahid cleft/coccyx area is most likely pressure related. today, there is a large area of maceration noted to the periwound and anastasia-rectal area. appears to be fungal in nature. two daughters are present at bedside. both state that Home Health comes to the home once a week for dressing changes. daughter states that currently patient was getting Medihoney to the wound. when asked if patient was incontinent, daughters say that she does use a female urinal, but often her anastasia pad is wet. discussed that this may be the cause of the fungal infection. neither of the daughters appear to be able to assist much with her care. states that their dad is at the house, but is not able to assist with much care. d/t the fungal infection, it will be difficult to keep a dressing in place. wound recommend Aquacel AG to the coccyx, cleft wound every other day and cover with dry dressing. would also recommend nystatin powder followed by calmoseptine to the anastasia-rectal/buttocks area at least BID. vahid cleft wound measures approx 2.5cm x 1.8cm x 0.9cm. patient also has a stage 2 pressure injury to the right posterior lower leg/achilles heel that measures approx 1cm x 1cm. would recommend Aquacel AG every other day as well followed by a dry dressing. Discussed this with Dr Massey and both daughters. wound recommendations written out for Home health nurse as well. pt tolerated well.
--- NOTE | 2018-02-23 13:33 | ED.DCSUM_ITS ---
- ER Visit Summary Date of Service: 02/23/18 Chief Complaint: Weakness, nausea, vomiting, diarrhea History of Present Illness: The patient is a 82 F who is currently on Levaquin for a coccyx wound. Patient states last evening she had nausea, vomiting, and diarrhea. Today she feels weak and wiped out. She was admitted to the hospital in January and at [place] for dehydration and then transferred to [place] for anemia. Upper and lower scopes at that time revealed no source of blood loss. Patient does transfer by sliding as she had a prior leg amputation. Family feels that this is continually irritating the coccyx wound. Physical Examination: Vital signs are unremarkable. Patient's lying in bed no acute distress. She is nontoxic appearing. Head neck examination is normal. Heart is regular rate and rhythm. Lung sounds are clear. Abdomen is soft nontender. She allows deep palpation throughout. She has active bowel sounds. Test Results: CBC reveals a hemoglobin 9.3. White count is normal. Platelet count is elevated at 679,000. Chemistry studies are significant for glucose of 66. Urinalysis shows 50 ketones but no sign of infection. Emergency Department Course and Treatment: Patient was given IV fluids here and is tolerating p.o. fluids. Repeat blood sugar is 91. Wound nurse came down and evaluated the patient. The wound is only slightly larger than when she was in the hospital a month ago. She has made treatment recommendations and this will be sent home with the patient for wound care. I did review the wound culture. There are 3 separate bacteria growing on the culture: Staph aureus, Klebsiella, Proteus. Patient is currently on Levaquin and 2 of these bacteria are sensitive to Levaquin. The Proteus is resistant to Levaquin. She will be given ampicillin to cover the Proteus infection. Treatment Plan: [] Disposition: Discharge Impression: 1. 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 It may contain incorrect words, spelling, and punctuation that were not noted in review of the chart prior to signing ED Disposition - Plan for ED Patient: Chief Complaint: General Illness Referrals: Seferino Wheeler III, MD [Primary Care Provider] -
--- NOTE | 2018-02-23 13:33 | ED.DEP ---
ED Disposition - Plan for ED Patient: Disposition: Home or Assisted Living Chief Complaint: General Illness Instructions: ED Diet Vomiting Diarrhea, ED Wound Care Prescriptions: Ampicillin Trihydrate 250 mg PO Q6H #28 capsule Referrals: Seferino Wheeler III, MD [Primary Care Provider] - 1 Week
--- NOTE | 2018-02-23 13:58 | CM.ED ---
Call placed to Olga, at [facility], to see if patient would qualify for additional home health hours for wound care. Olga states the RN has trained the patient's to do dressing changes. I spoke with the family and patient who state they do have concerns whether the patient's is performing proper wound care. We discussed whether there are other people who may be able to be trained to do this care. Family did accept a list of private pay aide services and expresses interest in these services. Olga updated and states she spoke with the RN who visits the patient's home. This RN mentioned concerns that the patient is scooting too much and laying on her wound too much. I requested the RN speak with the patient's daughters regarding this compliance issue. Olga states RN will do so.
[2018-02-23 15:09] VITALS: BP 148/72; PULSE 81; RESP 16; O2SAT 98
== END 2018-02-23 15:10 | disposition home or self-care (01) ==
PROVIDERS: Emergency Provider Emergency Medicine; Family Provider Family Medicine; PCP Family Medicine
DX: R11.2 Nausea with vomiting, unspecified (principal); R19.7 Diarrhea, unspecified; R53.1 Weakness; S31.809A Unspecified open wound of unspecified buttock, initial encounter; B95.61 Methicillin susceptible Staphylococcus aureus infection as the cause of diseases classified elsewhere; B96.1 Klebsiella pneumoniae [K. pneumoniae] as the cause of diseases classified elsewhere; B96.4 Proteus (mirabilis) (morganii) as the cause of diseases classified elsewhere; Z16.29 Resistance to other single specified antibiotic; X58.XXXA Exposure to other specified factors, initial encounter; Y93.9 Activity, unspecified; Y92.9 Unspecified place or not applicable; J45.909 Unspecified asthma, uncomplicated; I10 Essential (primary) hypertension; E78.00 Pure hypercholesterolemia, unspecified; E03.9 Hypothyroidism, unspecified; D64.9 Anemia, unspecified; M19.90 Unspecified osteoarthritis, unspecified site; Z86.718 Personal history of other venous thrombosis and embolism; Z89.619 Acquired absence of unspecified leg above knee; Z79.2 Long term (current) use of antibiotics; Z79.01 Long term (current) use of anticoagulants; Z79.899 Other long term (current) drug therapy
CPT/HCPCS: 80048; 81001; 82962; 85025; 96360; 96361; 99285; J7030; J7040; A4216

== ENCOUNTER → 2018-03-20 11:42 | Outpatient (CLI) | payer MEDICARE, OTHER, SELFPAY ==
[2018-03-20 13:44] LABS: Prothrombin Time (Protime)PT. 55.3 SECONDS (11.7-14.9)
[2018-03-20 13:51] LABS: International Normalized Ratio 6.2
== END ==
PROVIDERS: Family Provider Family Medicine; PCP Family Medicine; Visit Provider Family Medicine
DX: I82.409 Acute embolism and thrombosis of unspecified deep veins of unspecified lower extremity (principal)
CPT/HCPCS: 85610

== ENCOUNTER 2018-05-14 13:30 | Outpatient (RCR) | payer MEDICARE, OTHER, SELFPAY ==
[2018-04-30 14:22] VITALS: BP 127/86; PULSE 97; RESP 16; TEMP 36.8; BMI 19.7
--- NOTE | 2018-04-30 17:20 | PCM.WC.HP ---
(1) Stage III pressure ulcer Status: Acute Current Visit: Yes Qualifiers: Pressure ulcer location: other site Qualified Code(s): L89.893 - Pressure ulcer of other site, stage 3 Code(s): L89.93 - Pressure ulcer of unspecified site, stage 3 Comment: coccyx (2) Excoriation of buttock Status: Acute Current Visit: Yes Qualifiers: Encounter type: initial encounter Qualified Code(s): S30.810A - Abrasion of lower back and pelvis, initial encounter Code(s): S30.810A - Abrasion of lower back and pelvis, initial encounter (3) Amputation of left lower extremity Status: Acute Current Visit: Yes Code(s): S88.912A - Complete traumatic amputation of left lower leg, level unspecified, initial encounter (4) Immobility Status: Acute Current Visit: Yes Code(s): Z74.09 - Other reduced mobility (5) Anemia Status: Acute Current Visit: No Code(s): D64.9 - Anemia, unspecified (6) Hyperlipidemia Status: Chronic Current Visit: No Code(s): E78.5 - Hyperlipidemia, unspecified (7) Hypertension Status: Chronic Current Visit: No Code(s): I10 - Essential (primary) hypertension (8) Osteoarthritis of hips, bilateral Status: Chronic Current Visit: No Code(s): M16.0 - Bilateral primary osteoarthritis of hip (9) Osteoporosis Status: Chronic Current Visit: No Code(s): M81.0 - Age-related osteoporosis without current pathological fracture History of Present Illness Date of Service: 04/30/18 Chief Complaint: stg 3 coccyx since November 2017 History of Wound: Patient presents today to the wound healing center for evaluation and treatment of a stage III pressure wound to her coccyx. She has a past medical history of left cfrya-pml-wawl amputee, DVT, PE with long-term Coumadin anticoagulation, anemia, RA and OA. Patient and family believe the wound started around November 2017 due to pressure and constantly sitting in her chair. Her wound has been noted on multiple hospital admissions in the past. Cultures were previously done in January and demonstrated staph, Klebsiella, and Proteus and patient completed Levaquin and ampicillin therapy. The patient has also been in and out of the jail. She is currently residing at home with her . Due to her amputation, her mobility is severely limited and she spends most of her time sitting in either her wheelchair or her reclining chair at home. She does have a hospital bed that she just recently started sleeping at night. She does state that she has an excoriated buttocks as well due to having to scoot from her wheelchair to reclining chair and wheelchair to bed. Her wound care thus far has consisted of calmoseptine applied twice daily. Denies any heavy drainage, though does state that the ulcer bleeds at times. Denies any systemic signs of infection at this time. The patient otherwise denies any fever, chills, nausea, vomiting, shortness of breath, chest pain or pressure, palpitations, orthopnea, lower extremity edema, syncope or presyncopal episodes. She denies trying offloading mechanisms at home at this time and does not have a wheelchair cushion. Past Medical History Past Medical History: Chronic Problems Osteoporosis (Chronic) Hypothyroidism (Chronic) Warfarin-induced coagulopathy (Chronic) hx VT-chronic Hypertension (Chronic) DVT (deep venous thrombosis) (Chronic) Hyperlipidemia (Chronic) Osteoarthritis of hips, bilateral (Chronic) Surgical History: cholecystectomy, total hip arthroplasty - Bilateral., total knee arthroplasty - Left., - - D&C, [id number] 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 Allergies/Adverse Reactions: Allergies methotrexate Allergy (Verified 04/30/18 14:56) effect to liver arthritis medications Allergy (Uncoded 02/23/18 09:38) effected the liver Home Medications: Ambulatory Orders Medication Instructions Recorded Levothyroxine [Synthroid] 100 mcg PO DAILY 07/28/16 Lisinopril [Zestril] 40 mg PO DAILY 07/28/16 Simvastatin [Zocor] 20 mg PO QHS 07/28/16 Warfarin [Coumadin] 0.5 mg PO SUMOTUWETHSA 07/28/16 Warfarin [Coumadin] 1 mg PO FR 07/28/16 Ondansetron [Zofran Odt] 4 mg PO Q8H PRN PRN #10 tablet 09/04/16 Polyethylene Glycol 3350 [Miralax] 17 gm PO DAILY PRN 09/04/16 Acetaminophen [Tylenol Extra 500 mg PO Q6H 01/25/18 Strength] Amlodipine [Norvasc] 5 mg PO DAILY 01/25/18 Cholecalciferol (Vitamin D3) 2,000 unit PO DAILY 01/25/18 [D3-2000] Hydrocodone Bitart/Apap 5-325 1 tablet PO Q6H PRN PRN 01/25/18 [[place] 5MG-325MG] Iron Polysaccharide Complex 150 mg PO DAILYCM 01/25/18 [Ferrex 150] Pantoprazole Sodium [Pantoprazole 40 mg PO DAILY PRN PRN 01/25/18 Sodium] Ampicillin Trihydrate 250 mg PO Q6H #28 capsule 02/23/18 - Family History Maternal No pertinent history Paternal No pertinent history Lives: Spouse/ Significant Other Smoking Status: Never smoker Alcohol: None Drugs: None Review of Systems Constitutional: Denies: Chills, Fever, Weight Change Eyes: Denies: Pain, Vision Change HEENT: Denies: Difficulty Hearing, Difficulty Swallowing, Sinus Congestion Cardiovascular: Denies: Chest Pain, Palpitations Respiratory: Denies: Cough, Shortness of Breath Gastrointestinal: Denies: Diarrhea, Nausea, Vomiting Genitourinary: Denies: Dysuria, Hematuria Musculoskeletal: Reports: Joint Pain, Muscle pain, - - Limited mobility due to left lower extremity amputation Skin: Reports: Wounds - See HPI Neurological: Denies: Confusion Endocrine: Denies: Heat/ Cold Intolerance, Polydipsia, Polyuria Hematologic/ Lymphatic: Denies: Easy Bruising, Easy Bleeding - Physical Exam Vital Signs Temp Pulse Resp BP 98.2 F 97 16 127/86 H 04/30/18 14:22 04/30/18 14:22 04/30/18 14:22 04/30/18 14:22 General: Alert, Oriented x3, Cooperative, No apparent distress HEENT: PERRLA, EOMI Neck: Supple, No JVD Lungs: Clear to auscultation, Normal air movement, No rhonchi, No wheeze Cardiovascular: Regular rate, Regular Rhythm, Normal S1, Normal S2 Abdomen: Bowel Sounds Present, Soft, Non Tender Extremities: Capillary Refill Less than 3 Seconds, Edema - Generalized right lower extremity edema, - - Multiple arthritic changes noted on multiple joints upper and lower extremities Skin: Ulcer/ Wound - Stage III pressure ulcer present coccyx with moderate amount of slough present, surrounding excoriation, no heavy exudate or foul-smelling no signs of acute infection at this time, Excoriated - Excoriation present bilateral buttocks Wound Measurements and Assessment - Nurse 1 - General Ulcer Measurement Start: 04/30/18 13:54 Freq: Status: Active Protocol: Activity Type Activity Date Activity User E-Sign Co-Sign Detail Recorded Client Recorded Date Recorded By Document 04/30/18 14:22 DL [id number] 04/30/18 14:52 DL 04/30/18 14:22 Wound Center Nurse 1 [Ulcer Assessment] #2 Coccyx -Current Size (cm) - Length 2.1 -Current Size (cm) - Width 1.8 -Current Size (cm) - Depth 0.7 -Total Square Cm 3.78 -Photo Taken Yes -Classification - Thickness Full Thickness without Exposed Support Structure -Classification - Pressure Ulcer Stage 3 -Exudate Amt Medium (34-66%) -Exudate Type Serosanguineous -Wound Margin Distinct, Outline Attached -Granulation Amt Large (67-100%) -Granulation Quality Red -Necrosis Amt Small (1-33%) -Necrotic Tissue Type Adherent Slough -Structure Exposed N/A -Texture (Alexus-wound Skin Appearance) Excoriation -Moisture (Alexus-wound Skin Appearance No Abnormality ) -Color (Alexus-wound Skin Appearance) Erythema -Temperature (Alexus-wound Skin No Abnormality Appearance) (Pt Warm) -Ulcer Cleansing Rinsed/ Irrigated with Saline -Foul Odor after Cleansing No -Anesthetic Used 4% Lidocaine Solution - Nurse 2 - General Ulcer CM Notes Start: 04/30/18 13:54 Freq: Status: Active Protocol: Activity Type Activity Date Activity User E-Sign Co-Sign Detail Recorded Client Recorded Date Recorded By Document 04/30/18 15:24 DV [id number] 04/30/18 15:40 DV 04/30/18 15:24 Wound Center Nurse 2 [Procedure/Treatment] -Time 15:27 -Correct Patient Yes -Correct Side, Site, Position Yes -Correct Procedure Yes -Procedure Performed Yes -Type of Procedure Debridement -Clinical Debridement Subcutaneous -Post Debridement Size (cm) - Length 2.7 -Post Debridement Size (cm) - Width 2.5 -Post Debridement Size (cm) - Depth 1.2 -Total Square Cm 6.75 -Wound/Ulcer Outcome Not Healed -Ulcer Cleansing Rinsed/ Irrigated with Saline -Foul Odor after Cleansing No -Bioengineered Tissue No -Bleeding Controlled with Pressure -Treatment Response Procedure Tolerated Well [See Physician Procedure note for Specifics] Pain Scale: 0-10 Numeric [Pain] -Is Patient Pain Free? Yes Neurological: - - Examined in bed, patient is non-ambulatory Psych/Mental Status: Normal Affect, Alert and oriented to time, place, person, mood and affect Debridement Note Post-Debridement Measurements/Treatment WC - Nurse 2 - General Ulcer CM Notes Start: 04/30/18 13:54 Freq: Status: Active Protocol: Activity Type Activity Date Activity User E-Sign Co-Sign Detail Recorded Client Recorded Date Recorded By Document 04/30/18 15:24 DV [id number] 04/30/18 15:40 DV 04/30/18 15:24 Wound Center Nurse 2 #2 Coccyx -Time 15:27 -Correct Patient Yes -Correct Side, Site, Position Yes -Correct Procedure Yes -Procedure Performed Yes -Type of Procedure Debridement -Clinical Debridement Subcutaneous -Post Debridement Size (cm) - Length 2.7 -Post Debridement Size (cm) - Width 2.5 -Post Debridement Size (cm) - Depth 1.2 -Total Square Cm 6.75 -Wound/Ulcer Outcome Not Healed -Ulcer Cleansing Rinsed/ Irrigated with Saline -Foul Odor after Cleansing No -Bioengineered Tissue No -Bleeding Controlled with Pressure -Treatment Response Procedure Tolerated Well Pain Scale: 0-10 Numeric Is Patient Pain Free? Yes Wound debrided: Stage III pressure ulcer coccyx Type of Debridement: Excisional debridement Anesthesia Used: 5% Lidocaine Gel Depth: in the subcutaneous layer Percentage of wound debrided: 100 Instrument Used: 5mm curette Tissue Removed: Slough and devitalized tissue Severity: Fat Layer Exposed Amount of bleeding with debridement: Mild Bleeding Controlled with: Pressure Patient tolerated procedure well Assessment/Plan Active Problems Stage III pressure ulcer (Acute) coccyx Excoriation of buttock (Acute) Amputation of left lower extremity (Acute) Immobility (Acute) Assessment: See above diagnoses Plan: The patient was seen and examined at the wound center today and was updated on the plan of care. A subcutaneous debridement was performed today. The patient tolerated the procedure well. The patients wound care will consist of: Aquacel AG covered with up to foam to stage III coccyx and continue with calmoseptine to excoriation of buttocks. Wound cultures were collected. Baseline bloodwork ordered. Patient educated on the importance of diet on wound healing and instructed to increase protein and vitamin C intake. Patient verbalized understanding. Due to patient's limited mobility and stage III pressure ulcer, she would benefit from the use of a sliding board and the use of a gel cushion for her wheelchair. Orders for the supplies will be given. Patient will follow up at wound healing center in one week or sooner if needed. This note was generated with [employer] dictation software. It may contain incorrect words, spelling, and punctuation that were not noted in checking the note before signing. Code Visit Office Visits / Consults: [id number] OV L4 Est 111xxx-113xx: [id number] Angie subq tissue 20 sq cm/<
--- NOTE | 2018-04-30 17:30 | HP.PCM_ITS ---
(1) Stage III pressure ulcer Status: Acute Current Visit: Yes Qualifiers: Pressure ulcer location: other site Qualified Code(s): L89.893 - Pressure ulcer of other site, stage 3 Code(s): L89.93 - Pressure ulcer of unspecified site, stage 3 Comment: coccyx (2) Excoriation of buttock Status: Acute Current Visit: Yes Qualifiers: Encounter type: initial encounter Qualified Code(s): S30.810A - Abrasion of lower back and pelvis, initial encounter Code(s): S30.810A - Abrasion of lower back and pelvis, initial encounter (3) Amputation of left lower extremity Status: Acute Current Visit: Yes Code(s): S88.912A - Complete traumatic amputation of left lower leg, level unspecified, initial encounter (4) Immobility Status: Acute Current Visit: Yes Code(s): Z74.09 - Other reduced mobility (5) Anemia Status: Acute Current Visit: No Code(s): D64.9 - Anemia, unspecified (6) Hyperlipidemia Status: Chronic Current Visit: No Code(s): E78.5 - Hyperlipidemia, unspecified (7) Hypertension Status: Chronic Current Visit: No Code(s): I10 - Essential (primary) hypertension (8) Osteoarthritis of hips, bilateral Status: Chronic Current Visit: No Code(s): M16.0 - Bilateral primary osteoarthritis of hip (9) Osteoporosis Status: Chronic Current Visit: No Code(s): M81.0 - Age-related osteoporosis without current pathological fracture History of Present Illness Date of Service: 04/30/18 Chief Complaint: stg 3 coccyx since November 2017 History of Wound: Patient presents today to the wound healing center for evaluation and treatment of a stage III pressure wound to her coccyx. She has a past medical history of left drwjb-sff-ivef amputee, DVT, PE with long-term Coumadin anticoagulation, anemia, RA and OA. Patient and family believe the wound started around November 2017 due to pressure and constantly sitting in her chair. Her wound has been noted on multiple hospital admissions in the past. Cultures were previously done in January and demonstrated staph, Klebsiella, and Proteus and patient completed Levaquin and ampicillin therapy. The patient has also been in and out of the skilled nursing. She is currently residing at home with her . Due to her amputation, her mobility is severely limited and she spends most of her time sitting in either her wheelchair or her reclining chair at home. She does have a hospital bed that she just recently started sleeping at night. She does state that she has an excoriated buttocks as well due to having to scoot from her wheelchair to reclining chair and wheelchair to bed. Her wound care thus far has consisted of calmoseptine applied twice daily. Denies any heavy drainage, though does state that the ulcer bleeds at times. Denies any systemic signs of infection at this time. The patient otherwise denies any fever, chills, nausea, vomiting, shortness of breath, chest pain or pressure, palpitations, orthopnea, lower extremity edema, syncope or presyncopal episodes. She denies trying offloading mechanisms at home at this time and does not have a wheelchair cushion. Past Medical History Past Medical History: Chronic Problems Osteoporosis (Chronic) Hypothyroidism (Chronic) Warfarin-induced coagulopathy (Chronic) hx VT-chronic Hypertension (Chronic) DVT (deep venous thrombosis) (Chronic) Hyperlipidemia (Chronic) Osteoarthritis of hips, bilateral (Chronic) Surgical History: cholecystectomy, total hip arthroplasty - Bilateral., total knee arthroplasty - Left., - - D&C, [id number] 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 Allergies/Adverse Reactions: Allergies methotrexate Allergy (Verified 04/30/18 14:56) effect to liver arthritis medications Allergy (Uncoded 02/23/18 09:38) effected the liver Home Medications: Ambulatory Orders Medication Instructions Recorded Levothyroxine [Synthroid] 100 mcg PO DAILY 07/28/16 Lisinopril [Zestril] 40 mg PO DAILY 07/28/16 Simvastatin [Zocor] 20 mg PO QHS 07/28/16 Warfarin [Coumadin] 0.5 mg PO SUMOTUWETHSA 07/28/16 Warfarin [Coumadin] 1 mg PO FR 07/28/16 Ondansetron [Zofran Odt] 4 mg PO Q8H PRN PRN #10 tablet 09/04/16 Polyethylene Glycol 3350 [Miralax] 17 gm PO DAILY PRN 09/04/16 Acetaminophen [Tylenol Extra 500 mg PO Q6H 01/25/18 Strength] Amlodipine [Norvasc] 5 mg PO DAILY 01/25/18 Cholecalciferol (Vitamin D3) 2,000 unit PO DAILY 01/25/18 [D3-2000] Hydrocodone Bitart/Apap 5-325 1 tablet PO Q6H PRN PRN 01/25/18 [[place] 5MG-325MG] Iron Polysaccharide Complex 150 mg PO DAILYCM 01/25/18 [Ferrex 150] Pantoprazole Sodium [Pantoprazole 40 mg PO DAILY PRN PRN 01/25/18 Sodium] Ampicillin Trihydrate 250 mg PO Q6H #28 capsule 02/23/18 - Family History Maternal No pertinent history Paternal No pertinent history Lives: Spouse/ Significant Other Smoking Status: Never smoker Alcohol: None Drugs: None Review of Systems Constitutional: Denies: Chills, Fever, Weight Change Eyes: Denies: Pain, Vision Change HEENT: Denies: Difficulty Hearing, Difficulty Swallowing, Sinus Congestion Cardiovascular: Denies: Chest Pain, Palpitations Respiratory: Denies: Cough, Shortness of Breath Gastrointestinal: Denies: Diarrhea, Nausea, Vomiting Genitourinary: Denies: Dysuria, Hematuria Musculoskeletal: Reports: Joint Pain, Muscle pain, - - Limited mobility due to left lower extremity amputation Skin: Reports: Wounds - See HPI Neurological: Denies: Confusion Endocrine: Denies: Heat/ Cold Intolerance, Polydipsia, Polyuria Hematologic/ Lymphatic: Denies: Easy Bruising, Easy Bleeding - Physical Exam Vital Signs Temp Pulse Resp BP 98.2 F 97 16 127/86 H 04/30/18 14:22 04/30/18 14:22 04/30/18 14:22 04/30/18 14:22 General: Alert, Oriented x3, Cooperative, No apparent distress HEENT: PERRLA, EOMI Neck: Supple, No JVD Lungs: Clear to auscultation, Normal air movement, No rhonchi, No wheeze Cardiovascular: Regular rate, Regular Rhythm, Normal S1, Normal S2 Abdomen: Bowel Sounds Present, Soft, Non Tender Extremities: Capillary Refill Less than 3 Seconds, Edema - Generalized right lower extremity edema, - - Multiple arthritic changes noted on multiple joints upper and lower extremities Skin: Ulcer/ Wound - Stage III pressure ulcer present coccyx with moderate amount of slough present, surrounding excoriation, no heavy exudate or foul- smelling no signs of acute infection at this time, Excoriated - Excoriation present bilateral buttocks Wound Measurements and Assessment - Nurse 1 - General Ulcer Measurement Start: 04/30/18 13:54 Freq: Status: Active Protocol: Activity Type Activity Date Activity User E-Sign Co-Sign Detail Recorded Client Recorded Date Recorded By Document 04/30/18 14:22 DL [id number] 04/30/18 14:52 DL 04/30/18 14:22 Wound Center Nurse 1 [Ulcer Assessment] #2 Coccyx -Current Size (cm) - Length 2.1 -Current Size (cm) - Width 1.8 -Current Size (cm) - Depth 0.7 -Total Square Cm 3.78 -Photo Taken Yes -Classification - Thickness Full Thickness without Exposed Support Structure -Classification - Pressure Ulcer Stage 3 -Exudate Amt Medium (34-66%) -Exudate Type Serosanguineous -Wound Margin Distinct, Outline Attached -Granulation Amt Large (67-100%) -Granulation Quality Red -Necrosis Amt Small (1-33%) -Necrotic Tissue Type Adherent Slough -Structure Exposed N/A -Texture (Alexus-wound Skin Appearance) Excoriation -Moisture (Alexus-wound Skin Appearance No Abnormality ) -Color (Alexus-wound Skin Appearance) Erythema -Temperature (Alexus-wound Skin No Abnormality Appearance) (Pt Warm) -Ulcer Cleansing Rinsed/ Irrigated with Saline -Foul Odor after Cleansing No -Anesthetic Used 4% Lidocaine Solution - Nurse 2 - General Ulcer CM Notes Start: 04/30/18 13:54 Freq: Status: Active Protocol: Activity Type Activity Date Activity User E-Sign Co-Sign Detail Recorded Client Recorded Date Recorded By Document 04/30/18 15:24 DV [id number] 04/30/18 15:40 DV 04/30/18 15:24 Wound Center Nurse 2 [Procedure/Treatment] -Time 15:27 -Correct Patient Yes -Correct Side, Site, Position Yes -Correct Procedure Yes -Procedure Performed Yes -Type of Procedure Debridement -Clinical Debridement Subcutaneous -Post Debridement Size (cm) - Length 2.7 -Post Debridement Size (cm) - Width 2.5 -Post Debridement Size (cm) - Depth 1.2 -Total Square Cm 6.75 -Wound/Ulcer Outcome Not Healed -Ulcer Cleansing Rinsed/ Irrigated with Saline -Foul Odor after Cleansing No -Bioengineered Tissue No -Bleeding Controlled with Pressure -Treatment Response Procedure Tolerated Well [See Physician Procedure note for Specifics] Pain Scale: 0-10 Numeric [Pain] -Is Patient Pain Free? Yes Neurological: - - Examined in bed, patient is non-ambulatory Psych/Mental Status: Normal Affect, Alert and oriented to time, place, person, mood and affect Debridement Note Post-Debridement Measurements/Treatment WC - Nurse 2 - General Ulcer CM Notes Start: 04/30/18 13:54 Freq: Status: Active Protocol: Activity Type Activity Date Activity User E-Sign Co-Sign Detail Recorded Client Recorded Date Recorded By Document 04/30/18 15:24 DV [id number] 04/30/18 15:40 DV 04/30/18 15:24 Wound Center Nurse 2 #2 Coccyx -Time 15:27 -Correct Patient Yes -Correct Side, Site, Position Yes -Correct Procedure Yes -Procedure Performed Yes -Type of Procedure Debridement -Clinical Debridement Subcutaneous -Post Debridement Size (cm) - Length 2.7 -Post Debridement Size (cm) - Width 2.5 -Post Debridement Size (cm) - Depth 1.2 -Total Square Cm 6.75 -Wound/Ulcer Outcome Not Healed -Ulcer Cleansing Rinsed/ Irrigated with Saline -Foul Odor after Cleansing No -Bioengineered Tissue No -Bleeding Controlled with Pressure -Treatment Response Procedure Tolerated Well Pain Scale: 0-10 Numeric Is Patient Pain Free? Yes Wound debrided: Stage III pressure ulcer coccyx Type of Debridement: Excisional debridement Anesthesia Used: 5% Lidocaine Gel Depth: in the subcutaneous layer Percentage of wound debrided: 100 Instrument Used: 5mm curette Tissue Removed: Slough and devitalized tissue Severity: Fat Layer Exposed Amount of bleeding with debridement: Mild Bleeding Controlled with: Pressure Patient tolerated procedure well Assessment/Plan Active Problems Stage III pressure ulcer (Acute) coccyx Excoriation of buttock (Acute) Amputation of left lower extremity (Acute) Immobility (Acute) Assessment: See above diagnoses Plan: The patient was seen and examined at the wound center today and was updated on the plan of care. A subcutaneous debridement was performed today. The patient tolerated the procedure well. The patients wound care will consist of: Aquacel AG covered with up to foam to stage III coccyx and continue with calmoseptine to excoriation of buttocks. Wound cultures were collected. Baseline bloodwork ordered. Patient educated on the importance of diet on wound healing and instructed to increase protein and vitamin C intake. Patient verbalized understanding. Due to patient's limited mobility and stage III pressure ulcer, she would benefit from the use of a sliding board and the use of a gel cushion for her wheelchair. Orders for the supplies will be given. Patient will follow up at wound healing center in one week or sooner if needed. This note was generated with [employer] dictation software. It may contain incorrect words, spelling, and punctuation that were not noted in checking the note before signing. Code Visit Office Visits / Consults: [id number] OV L4 Est 111xxx-113xx: [id number] Angie subq tissue 20 sq cm/<
[2018-05-04 11:44] LABS: Hematocrit 28.1 % (37-47); Hemoglobin 8.6 g/dl (12.0-15.0); Mean Corp Hgb Conc 30.6 g/gl (32-36); Mean Corpuscular Hgb 24.8 pg (27.0-32.0); Mean Platelet Vol. 8.7 fl (6.2-12.0); Platelet Count 673 K/mm3 (150-450); RBC Distribution Width SD 49.9 fl (35.1-43.9); Red Blood Count 3.47 M/mm3 (4.2-5.4); Scan Indicated on CBC? Y/N NO
[2018-05-04 12:18] LABS: ALB/GLOB Ratio 0.5 RATIO (0.9-2.4); AST(SGOT) 9 U/L (15-37); Alanine Aminotransfer ALT/SGPT < 6 U/L (13-56); Albumin, Serum 2.2 g/dL (3.2-5.0); Alkaline Phosphatase 90 U/L (45-117); Anion Gap 8 (5-15); BUN 11 mg/dL (7-18); BUN/Creat Ratio 24.3 RATIO (10-20); Calcium,Total 8.2 mg/dL (8.5-10.1); Chloride 104 mmol/L (98-107); Creatinine, Serum 0.45 mg/dL (0.55-1.02); EST Glomerular Filtration Rate 142 mL/min (>60); Est Glom Filt Rate - Afr Amer 171 mL/min (>60); Estimated Creatinine Clearance 36.95 ml/min; Globulin 4.2 g/dL (2.2-4.2); Glucose 100 mg/dL (74-106); Potassium 3.2 mmol/L (3.5-5.1); Prealbumin 9.4 mg/dL (20.0-40.0); Protein, Total 6.4 g/dL (6.4-8.2); Sodium Level 140 mmol/L (136-145)
[2018-05-07 14:46] VITALS: PULSE 88; RESP 18; TEMP 36.9; BMI 19.7
--- NOTE | 2018-05-07 20:58 | PCM.WC.PN ---
(1) Stage III pressure ulcer Status: Acute Qualifiers: Pressure ulcer location: other site Qualified Code(s): L89.893 - Pressure ulcer of other site, stage 3 Code(s): L89.93 - Pressure ulcer of unspecified site, stage 3 Comment: coccyx (2) Excoriation of buttock Status: Acute Qualifiers: Encounter type: initial encounter Qualified Code(s): S30.810A - Abrasion of lower back and pelvis, initial encounter Code(s): S30.810A - Abrasion of lower back and pelvis, initial encounter (3) Amputation of left lower extremity Status: Acute Code(s): S88.912A - Complete traumatic amputation of left lower leg, level unspecified, initial encounter (4) Immobility Status: Acute Code(s): Z74.09 - Other reduced mobility (5) Anemia Status: Acute Code(s): D64.9 - Anemia, unspecified (6) Hyperlipidemia Status: Chronic Code(s): E78.5 - Hyperlipidemia, unspecified (7) Hypertension Status: Chronic Code(s): I10 - Essential (primary) hypertension (8) Osteoarthritis of hips, bilateral Status: Chronic Code(s): M16.0 - Bilateral primary osteoarthritis of hip (9) Osteoporosis Status: Chronic Code(s): M81.0 - Age-related osteoporosis without current pathological fracture Type of Wound Date of Service: 05/07/18 Chief Complaint: stg 3 coccyx since November 2017 History of Wound: Patient presents today to the wound healing center for evaluation and treatment of a stage III pressure wound to her coccyx. She has a past medical history of left [id number] amputee, DVT, PE with long-term Coumadin anticoagulation, anemia, RA and OA. Patient and family believe the wound started around November 2017 due to pressure and constantly sitting in her chair. Her wound has been noted on multiple hospital admissions in the past. Cultures were previously done in January and demonstrated staph, Klebsiella, and Proteus and patient completed Levaquin and ampicillin therapy. The patient has also been in and out of the [facility]. She is currently residing at home with her . Due to her amputation, her mobility is severely limited and she spends most of her time sitting in either her wheelchair or her reclining chair at home. She does have a hospital bed that she just recently started sleeping at night. She does state that she has an excoriated buttocks as well due to having to scoot from her wheelchair to reclining chair and wheelchair to bed. Her wound care thus far has consisted of calmoseptine applied twice daily. Denies any heavy drainage, though does state that the ulcer bleeds at times. Denies any systemic signs of infection at this time. The patient otherwise denies any fever, chills, nausea, vomiting, shortness of breath, chest pain or pressure, palpitations, orthopnea, lower extremity edema, syncope or presyncopal episodes. She denies trying offloading mechanisms at home at this time and does not have a wheelchair cushion. Progress of Wound: Size is improving, pain has improved somewhat as well. No increase in drainage or purulent exudate - Physical Exam Vital Signs Temp Pulse Resp BP 98.4 F 88 18 127/86 H 05/07/18 14:46 05/07/18 14:46 05/07/18 14:46 04/30/18 14:22 General: Alert, Oriented x3, Cooperative, No apparent distress HEENT: Atraumatic Cardiovascular: Regular rate Skin: Ulcer/ Wound - stage three ulcer present coccyx with adherent slough, no signs of acute infection at this time. Neurological: Cranial nerves II-XII grossly intact, Neuro grossly intact Psych/Mental Status: Normal Affect, Alert and oriented to time, place, person, mood and affect Debridement Note Post-Debridement Measurements/Treatment WC - Nurse 2 - General Ulcer CM Notes Start: 04/30/18 13:54 Freq: Status: Active Protocol: Activity Type Activity Date Activity User E-Sign Co-Sign Detail Recorded Client Recorded Date Recorded By Document 04/30/18 15:24 DV [id number] 04/30/18 15:40 DV Document 05/07/18 15:33 CS [id number] 05/07/18 15:35 CS 04/30/18 05/07/18 15:24 15:33 Wound Center Nurse 2 #2 Coccyx -Time 15:27 15:34 -Correct Patient Yes Yes -Correct Side, Site, Position Yes Yes -Correct Procedure Yes Yes -Procedure Performed Yes Yes -Type of Procedure Debridement Debridement -Clinical Debridement Subcutaneous Subcutaneous -Post Debridement Size (cm) - Length 2.7 2.0 -Post Debridement Size (cm) - Width 2.5 1.5 -Post Debridement Size (cm) - Depth 1.2 0.3 -Total Square Cm 6.75 3.00 -Wound/Ulcer Outcome Not Healed Not Healed -Ulcer Cleansing Rinsed/ Rinsed/ Irrigated with Irrigated with Saline Saline -Foul Odor after Cleansing No No -Bioengineered Tissue No No -Bleeding Controlled with Pressure Pressure -Treatment Response Procedure Procedure Tolerated Well Tolerated Well Pain Scale: 0-10 Numeric Is Patient Pain Free? Yes Yes Wound debrided: Stage 3 coccyx ulcer Type of Debridement: Excisional debridement Anesthesia Used: 5% Lidocaine Gel Depth: in the subcutaneous layer Percentage of wound debrided: 100 Instrument Used: 5mm curette Tissue Removed: slough and devitalized tissue Severity: Fat Layer Exposed Amount of bleeding with debridement: Mild Bleeding Controlled with: Pressure Patient tolerated procedure well Assessment/Plan Assessment: See above diagnoses Plan: The patient was seen and examined at the wound center today and was updated on the plan of care. A subcutaneous debridement was performed today. The patient tolerated the procedure well. The patients wound care will consist of: Aquacel AG covered with optifoam to stage III coccyx and continue with calmoseptine to excoriation of buttocks. Pt to continue with offloading interventions such as turning q2h in bed at night and offloading when sitting. Wound cultures were collected previously and demonstrated MRSA that is susceptible to doxy, doxy 100 mg BID ordered. Baseline bloodwork reviewed and prealbumin was very low, encouraged the use of high protien drinks and to drink at minimum 3-4 ensure drinks per day. Patient educated on the importance of diet on wound healing and instructed to increase protein and vitamin C intake. Patient verbalized understanding. Due to patient's limited mobility and stage III pressure ulcer, she would benefit from the use of a sliding board and the use of a gel cushion for her wheelchair. Orders for the supplies will be given. Patient will follow up at wound healing center in one week or sooner if needed. Pt also had hypokalemia and instructed to f/u with PCP. This note was generated with [employer] software. It may contain incorrect words, spelling, and punctuation that were not noted in checking the note before signing. Code Visit 111xxx-113xx: 46729 Angie subq tissue 20 sq cm/<
--- NOTE | 2018-05-13 11:04 | PN.PCM_ITS ---
(1) Stage III pressure ulcer Status: Acute Qualifiers: Pressure ulcer location: other site Qualified Code(s): L89.893 - Pressure ulcer of other site, stage 3 Code(s): L89.93 - Pressure ulcer of unspecified site, stage 3 Comment: coccyx (2) Excoriation of buttock Status: Acute Qualifiers: Encounter type: initial encounter Qualified Code(s): S30.810A - Abrasion of lower back and pelvis, initial encounter Code(s): S30.810A - Abrasion of lower back and pelvis, initial encounter (3) Amputation of left lower extremity Status: Acute Code(s): S88.912A - Complete traumatic amputation of left lower leg, level unspecified, initial encounter (4) Immobility Status: Acute Code(s): Z74.09 - Other reduced mobility (5) Anemia Status: Acute Code(s): D64.9 - Anemia, unspecified (6) Hyperlipidemia Status: Chronic Code(s): E78.5 - Hyperlipidemia, unspecified (7) Hypertension Status: Chronic Code(s): I10 - Essential (primary) hypertension (8) Osteoarthritis of hips, bilateral Status: Chronic Code(s): M16.0 - Bilateral primary osteoarthritis of hip (9) Osteoporosis Status: Chronic Code(s): M81.0 - Age-related osteoporosis without current pathological fracture Type of Wound Date of Service: 05/07/18 Chief Complaint: stg 3 coccyx since November 2017 History of Wound: Patient presents today to the wound healing center for evaluation and treatment of a stage III pressure wound to her coccyx. She has a past medical history of left [id number] amputee, DVT, PE with long-term Coumadin anticoagulation, anemia, RA and OA. Patient and family believe the wound started around November 2017 due to pressure and constantly sitting in her chair. Her wound has been noted on multiple hospital admissions in the past. Cultures were previously done in January and demonstrated staph, Klebsiella, and Proteus and patient completed Levaquin and ampicillin therapy. The patient has also been in and out of the residential. She is currently residing at home with her . Due to her amputation, her mobility is severely limited and she spends most of her time sitting in either her wheelchair or her reclining chair at home. She does have a hospital bed that she just recently started sleeping at night. She does state that she has an excoriated buttocks as well due to having to scoot from her wheelchair to reclining chair and wheelchair to bed. Her wound care thus far has consisted of calmoseptine applied twice daily. Denies any heavy drainage, though does state that the ulcer bleeds at times. Denies any systemic signs of infection at this time. The patient otherwise denies any fever, chills, nausea, vomiting, shortness of breath, chest pain or pressure, palpitations, orthopnea, lower extremity edema, syncope or presyncopal episodes. She denies trying offloading mechanisms at home at this time and does not have a wheelchair cushion. Progress of Wound: Size is improving, pain has improved somewhat as well. No increase in drainage or purulent exudate - Physical Exam Vital Signs Temp Pulse Resp BP 98.4 F 88 18 127/86 H 05/07/18 14:46 05/07/18 14:46 05/07/18 14:46 04/30/18 14:22 General: Alert, Oriented x3, Cooperative, No apparent distress HEENT: Atraumatic Cardiovascular: Regular rate Skin: Ulcer/ Wound - stage three ulcer present coccyx with adherent slough, no signs of acute infection at this time. Neurological: Cranial nerves II-XII grossly intact, Neuro grossly intact Psych/Mental Status: Normal Affect, Alert and oriented to time, place, person, mood and affect Debridement Note Post-Debridement Measurements/Treatment WC - Nurse 2 - General Ulcer CM Notes Start: 04/30/18 13:54 Freq: Status: Active Protocol: Activity Type Activity Date Activity User E-Sign Co-Sign Detail Recorded Client Recorded Date Recorded By Document 04/30/18 15:24 DV [id number] 04/30/18 15:40 DV Document 05/07/18 15:33 CS [id number] 05/07/18 15:35 CS 04/30/18 05/07/18 15:24 15:33 Wound Center Nurse 2 #2 Coccyx -Time 15:27 15:34 -Correct Patient Yes Yes -Correct Side, Site, Position Yes Yes -Correct Procedure Yes Yes -Procedure Performed Yes Yes -Type of Procedure Debridement Debridement -Clinical Debridement Subcutaneous Subcutaneous -Post Debridement Size (cm) - Length 2.7 2.0 -Post Debridement Size (cm) - Width 2.5 1.5 -Post Debridement Size (cm) - Depth 1.2 0.3 -Total Square Cm 6.75 3.00 -Wound/Ulcer Outcome Not Healed Not Healed -Ulcer Cleansing Rinsed/ Rinsed/ Irrigated with Irrigated with Saline Saline -Foul Odor after Cleansing No No -Bioengineered Tissue No No -Bleeding Controlled with Pressure Pressure -Treatment Response Procedure Procedure Tolerated Well Tolerated Well Pain Scale: 0-10 Numeric Is Patient Pain Free? Yes Yes Wound debrided: Stage 3 coccyx ulcer Type of Debridement: Excisional debridement Anesthesia Used: 5% Lidocaine Gel Depth: in the subcutaneous layer Percentage of wound debrided: 100 Instrument Used: 5mm curette Tissue Removed: slough and devitalized tissue Severity: Fat Layer Exposed Amount of bleeding with debridement: Mild Bleeding Controlled with: Pressure Patient tolerated procedure well Assessment/Plan Assessment: See above diagnoses Plan: The patient was seen and examined at the wound center today and was updated on the plan of care. A subcutaneous debridement was performed today. The patient tolerated the procedure well. The patients wound care will consist of: Aquacel AG covered with optifoam to stage III coccyx and continue with calmoseptine to excoriation of buttocks. Pt to continue with offloading interventions such as turning q2h in bed at night and offloading when sitting. Wound cultures were collected previously and demonstrated MRSA that is susceptible to doxy, doxy 100 mg BID ordered. Baseline bloodwork reviewed and prealbumin was very low, encouraged the use of high protien drinks and to drink at minimum 3-4 ensure drinks per day. Patient educated on the importance of diet on wound healing and instructed to increase protein and vitamin C intake. Patient verbalized understanding. Due to patient's limited mobility and stage III pressure ulcer, she would benefit from the use of a sliding board and the use of a gel cushion for her wheelchair. Orders for the supplies will be given. Patient will follow up at wound healing center in one week or sooner if needed. Pt also had hypokalemia and instructed to f/u with PCP. This note was generated with [employer] software. It may contain incorrect words, spelling, and punctuation that were not noted in checking the note before signing. Code Visit 111xxx-113xx: 85461 Angie subq tissue 20 sq cm/<
[2018-05-14 13:30] VITALS: BP 104/44; PULSE 79; RESP 18; TEMP 36; BMI 19.7
--- NOTE | 2018-05-14 20:26 | PCM.WC.PN ---
(1) Stage III pressure ulcer Status: Acute Qualifiers: Pressure ulcer location: other site Qualified Code(s): L89.893 - Pressure ulcer of other site, stage 3 Code(s): L89.93 - Pressure ulcer of unspecified site, stage 3 Comment: coccyx (2) Excoriation of buttock Status: Acute Qualifiers: Encounter type: initial encounter Qualified Code(s): S30.810A - Abrasion of lower back and pelvis, initial encounter Code(s): S30.810A - Abrasion of lower back and pelvis, initial encounter (3) Amputation of left lower extremity Status: Acute Code(s): S88.912A - Complete traumatic amputation of left lower leg, level unspecified, initial encounter (4) Immobility Status: Acute Code(s): Z74.09 - Other reduced mobility (5) Anemia Status: Acute Code(s): D64.9 - Anemia, unspecified (6) Hyperlipidemia Status: Chronic Code(s): E78.5 - Hyperlipidemia, unspecified (7) Hypertension Status: Chronic Code(s): I10 - Essential (primary) hypertension (8) Osteoarthritis of hips, bilateral Status: Chronic Code(s): M16.0 - Bilateral primary osteoarthritis of hip (9) Osteoporosis Status: Chronic Code(s): M81.0 - Age-related osteoporosis without current pathological fracture Type of Wound Date of Service: 05/14/18 Chief Complaint: stg 3 coccyx since November 2017 History of Wound: Patient presents today to the wound healing center for evaluation and treatment of a stage III pressure wound to her coccyx. She has a past medical history of left [id number]-[id number] amputee, DVT, PE with long-term Coumadin anticoagulation, anemia, RA and OA. Patient and family believe the wound started around November 2017 due to pressure and constantly sitting in her chair. Her wound has been noted on multiple hospital admissions in the past. Cultures were previously done in January and demonstrated staph, Klebsiella, and Proteus and patient completed Levaquin and ampicillin therapy. The patient has also been in and out of the [facility]. She is currently residing at home with her . Due to her amputation, her mobility is severely limited and she spends most of her time sitting in either her wheelchair or her reclining chair at home. She does have a hospital bed that she just recently started sleeping at night. She does state that she has an excoriated buttocks as well due to having to scoot from her wheelchair to reclining chair and wheelchair to bed. Her wound care thus far has consisted of calmoseptine applied twice daily. Denies any heavy drainage, though does state that the ulcer bleeds at times. Denies any systemic signs of infection at this time. The patient otherwise denies any fever, chills, nausea, vomiting, shortness of breath, chest pain or pressure, palpitations, orthopnea, lower extremity edema, syncope or presyncopal episodes. She denies trying offloading mechanisms at home at this time and does not have a wheelchair cushion. Progress of Wound: Size is improving, pain has improved somewhat as well. No increase in drainage or purulent exudate, tolerating ATB well - Physical Exam Vital Signs Temp Pulse Resp BP 96.8 F L 79 18 104/44 L 05/14/18 13:30 05/14/18 13:30 05/14/18 13:30 05/14/18 13:30 General: Alert, Oriented x3, Cooperative, No apparent distress HEENT: Atraumatic Cardiovascular: Regular rate Skin: Ulcer/ Wound - stg three pressure coccyx without signs of infection Neurological: Neuro grossly intact Psych/Mental Status: Normal Affect, Alert and oriented to time, place, person, mood and affect Debridement Note Post-Debridement Measurements/Treatment WC - Nurse 2 - General Ulcer CM Notes Start: 04/30/18 13:54 Freq: Status: Active Protocol: Activity Type Activity Date Activity User E-Sign Co-Sign Detail Recorded Client Recorded Date Recorded By Document 04/30/18 15:24 DV [id number] 04/30/18 15:40 DV Document 05/07/18 15:33 CS [id number] 05/07/18 15:35 CS Document 05/14/18 13:54 JS [id number] 05/14/18 13:59 JS 04/30/18 05/07/18 05/14/18 15:24 15:33 13:54 Wound Center Nurse 2 #2 Coccyx -Time 15:27 15:34 13:54 -Correct Patient Yes Yes Yes -Correct Side, Site, Position Yes Yes Yes -Correct Procedure Yes Yes Yes -Procedure Performed Yes Yes Yes -Type of Procedure Debridement Debridement Debridement -Clinical Debridement Subcutaneous Subcutaneous Subcutaneous -Post Debridement Size (cm) - Length 2.7 2.0 1.5 -Post Debridement Size (cm) - Width 2.5 1.5 1.1 -Post Debridement Size (cm) - Depth 1.2 0.3 0.3 -Total Square Cm 6.75 3.00 1.65 -Wound/Ulcer Outcome Not Healed Not Healed Not Healed -Ulcer Cleansing Rinsed/ Rinsed/ Rinsed/ Irrigated with Irrigated with Irrigated with Saline Saline Saline -Foul Odor after Cleansing No No No -Bioengineered Tissue No No No -Topical Lidocaine (%) 4 -Lidocaine (ml) 5 -Bleeding Controlled with Pressure Pressure NA -Treatment Response Procedure Procedure Procedure Tolerated Well Tolerated Well Tolerated Well Pain Scale: 0-10 Numeric Is Patient Pain Free? Yes Yes Yes Wound debrided: stag 3 coccyx ulcer Type of Debridement: Excisional debridement Anesthesia Used: 5% Lidocaine Gel Depth: in the subcutaneous layer Percentage of wound debrided: 100 Instrument Used: 7mm curette Tissue Removed: slough and devitalized tissue Severity: Fat Layer Exposed Amount of bleeding with debridement: Mild Bleeding Controlled with: Pressure Patient tolerated procedure well Assessment/Plan Assessment: See above diagnoses Plan: The patient was seen and examined at the wound center today and was updated on the plan of care. A subcutaneous debridement was performed today. The patient tolerated the procedure well. The patients wound care will consist of: Aquacel AG covered with optifoam to stage III coccyx and continue with calmoseptine/ pink alina to excoriation of buttocks. Pt to continue with offloading interventions such as turning q2h in bed at night and offloading when sitting. Wound cultures were collected previously and demonstrated MRSA that is susceptible to doxy, doxy 100 mg BID ordered previously which she is tolerated. Baseline bloodwork reviewed and prealbumin was very low, encouraged the use of high protien drinks and to drink at minimum 3-4 ensure drinks per day. Patient educated on the importance of diet on wound healing and instructed to increase protein and vitamin C intake. Patient verbalized understanding. Due to patient's limited mobility and stage III pressure ulcer, she would benefit from the use of a sliding board and the use of a gel cushion for her wheelchair. Orders for the supplies will be given. Patient will follow up at wound healing center in one week or sooner if needed. Pt also had hypokalemia and instructed to f/u with PCP. This note was generated with [employer] dictation software. It may contain incorrect words, spelling, and punctuation that were not noted in checking the note before signing. Code Visit 111xxx-113xx: [id number] Angie subq tissue 20 sq cm/<
--- NOTE | 2018-05-21 11:32 | PN.PCM_ITS ---
(1) Stage III pressure ulcer Status: Acute Qualifiers: Pressure ulcer location: other site Qualified Code(s): L89.893 - Pressure ulcer of other site, stage 3 Code(s): L89.93 - Pressure ulcer of unspecified site, stage 3 Comment: coccyx (2) Excoriation of buttock Status: Acute Qualifiers: Encounter type: initial encounter Qualified Code(s): S30.810A - Abrasion of lower back and pelvis, initial encounter Code(s): S30.810A - Abrasion of lower back and pelvis, initial encounter (3) Amputation of left lower extremity Status: Acute Code(s): S88.912A - Complete traumatic amputation of left lower leg, level unspecified, initial encounter (4) Immobility Status: Acute Code(s): Z74.09 - Other reduced mobility (5) Anemia Status: Acute Code(s): D64.9 - Anemia, unspecified (6) Hyperlipidemia Status: Chronic Code(s): E78.5 - Hyperlipidemia, unspecified (7) Hypertension Status: Chronic Code(s): I10 - Essential (primary) hypertension (8) Osteoarthritis of hips, bilateral Status: Chronic Code(s): M16.0 - Bilateral primary osteoarthritis of hip (9) Osteoporosis Status: Chronic Code(s): M81.0 - Age-related osteoporosis without current pathological fracture Type of Wound Date of Service: 05/14/18 Chief Complaint: stg 3 coccyx since November 2017 History of Wound: Patient presents today to the wound healing center for evaluation and treatment of a stage III pressure wound to her coccyx. She has a past medical history of left [id number] amputee, DVT, PE with long-term Coumadin anticoagulation, anemia, RA and OA. Patient and family believe the wound started around November 2017 due to pressure and constantly sitting in her chair. Her wound has been noted on multiple hospital admissions in the past. Cultures were previously done in January and demonstrated staph, Klebsiella, and Proteus and patient completed Levaquin and ampicillin therapy. The patient has also been in and out of the halfway. She is currently residing at home with her . Due to her amputation, her mobility is severely limited and she spends most of her time sitting in either her wheelchair or her reclining chair at home. She does have a hospital bed that she just recently started sleeping at night. She does state that she has an excoriated buttocks as well due to having to scoot from her wheelchair to reclining chair and wheelchair to bed. Her wound care thus far has consisted of calmoseptine applied twice daily. Denies any heavy drainage, though does state that the ulcer bleeds at times. Denies any systemic signs of infection at this time. The patient otherwise denies any fever, chills, nausea, vomiting, shortness of breath, chest pain or pressure, palpitations, orthopnea, lower extremity edema, syncope or presyncopal episodes. She denies trying offloading mechanisms at home at this time and does not have a wheelchair cushion. Progress of Wound: Size is improving, pain has improved somewhat as well. No increase in drainage or purulent exudate, tolerating ATB well - Physical Exam Vital Signs Temp Pulse Resp BP 96.8 F L 79 18 104/44 L 05/14/18 13:30 05/14/18 13:30 05/14/18 13:30 05/14/18 13:30 General: Alert, Oriented x3, Cooperative, No apparent distress HEENT: Atraumatic Cardiovascular: Regular rate Skin: Ulcer/ Wound - stg three pressure coccyx without signs of infection Neurological: Neuro grossly intact Psych/Mental Status: Normal Affect, Alert and oriented to time, place, person, mood and affect Debridement Note Post-Debridement Measurements/Treatment WC - Nurse 2 - General Ulcer CM Notes Start: 04/30/18 13:54 Freq: Status: Active Protocol: Activity Type Activity Date Activity User E-Sign Co-Sign Detail Recorded Client Recorded Date Recorded By Document 04/30/18 15:24 DV [id number] 04/30/18 15:40 DV Document 05/07/18 15:33 CS [id number] 05/07/18 15:35 CS Document 05/14/18 13:54 JS [id number] 05/14/18 13:59 JS 04/30/18 05/07/18 05/14/18 15:24 15:33 13:54 Wound Center Nurse 2 #2 Coccyx -Time 15:27 15:34 13:54 -Correct Patient Yes Yes Yes -Correct Side, Site, Position Yes Yes Yes -Correct Procedure Yes Yes Yes -Procedure Performed Yes Yes Yes -Type of Procedure Debridement Debridement Debridement -Clinical Debridement Subcutaneous Subcutaneous Subcutaneous -Post Debridement Size (cm) - Length 2.7 2.0 1.5 -Post Debridement Size (cm) - Width 2.5 1.5 1.1 -Post Debridement Size (cm) - Depth 1.2 0.3 0.3 -Total Square Cm 6.75 3.00 1.65 -Wound/Ulcer Outcome Not Healed Not Healed Not Healed -Ulcer Cleansing Rinsed/ Rinsed/ Rinsed/ Irrigated with Irrigated with Irrigated with Saline Saline Saline -Foul Odor after Cleansing No No No -Bioengineered Tissue No No No -Topical Lidocaine (%) 4 -Lidocaine (ml) 5 -Bleeding Controlled with Pressure Pressure NA -Treatment Response Procedure Procedure Procedure Tolerated Well Tolerated Well Tolerated Well Pain Scale: 0-10 Numeric Is Patient Pain Free? Yes Yes Yes Wound debrided: stag 3 coccyx ulcer Type of Debridement: Excisional debridement Anesthesia Used: 5% Lidocaine Gel Depth: in the subcutaneous layer Percentage of wound debrided: 100 Instrument Used: 7mm curette Tissue Removed: slough and devitalized tissue Severity: Fat Layer Exposed Amount of bleeding with debridement: Mild Bleeding Controlled with: Pressure Patient tolerated procedure well Assessment/Plan Assessment: See above diagnoses Plan: The patient was seen and examined at the wound center today and was updated on the plan of care. A subcutaneous debridement was performed today. The patient tolerated the procedure well. The patients wound care will consist of: Aquacel AG covered with optifoam to stage III coccyx and continue with calmoseptine/ pink alina to excoriation of buttocks. Pt to continue with offloading interventions such as turning q2h in bed at night and offloading when sitting. Wound cultures were collected previously and demonstrated MRSA that is susceptible to doxy, doxy 100 mg BID ordered previously which she is tolerated. Baseline bloodwork reviewed and prealbumin was very low, encouraged the use of high protien drinks and to drink at minimum 3-4 ensure drinks per day. Patient educated on the importance of diet on wound healing and instructed to increase protein and vitamin C intake. Patient verbalized understanding. Due to patient's limited mobility and stage III pressure ulcer, she would benefit from the use of a sliding board and the use of a gel cushion for her wheelchair. Orders for the supplies will be given. Patient will follow up at wound healing center in one week or sooner if needed. Pt also had hypokalemia and instructed to f/u with PCP. This note was generated with [employer] dictation software. It may contain incorrect words, spelling, and punctuation that were not noted in checking the note before signing. Code Visit 111xxx-113xx: [id number] Angie subq tissue 20 sq cm/<
== END 2018-05-16 23:59 ==
LOC: WC 13:30
PROVIDERS: Family Provider Family Medicine; PCP Family Medicine; Visit Provider Nurse Practitioner Family
DX: L89.153 Pressure ulcer of sacral region, stage 3 (principal); E78.5 Hyperlipidemia, unspecified; I10 Essential (primary) hypertension; M16.0 Bilateral primary osteoarthritis of hip; M06.9 Rheumatoid arthritis, unspecified; Z86.711 Personal history of pulmonary embolism; Z86.718 Personal history of other venous thrombosis and embolism; Z79.01 Long term (current) use of anticoagulants; Z89.612 Acquired absence of left leg above knee; Z79.899 Other long term (current) drug therapy; B95.62 Methicillin resistant Staphylococcus aureus infection as the cause of diseases classified elsewhere; E87.6 Hypokalemia
CPT/HCPCS: 11042; 80053; 84134; 85027; 87070; 87075; 87077; 87186; 87205; 99213; G0463

== ENCOUNTER 2018-06-11 15:45 | Outpatient (RCR) | payer MEDICARE, OTHER, SELFPAY ==
[2018-05-17 01:11] VITALS: BP 104/44; PULSE 79; RESP 18; TEMP 36
[2018-05-21 14:54] VITALS: BP 95/43; PULSE 91; RESP 18; TEMP 37
--- NOTE | 2018-05-21 21:39 | PCM.WC.PN ---
(1) Stage III pressure ulcer Status: Acute Code(s): L89.93 - Pressure ulcer of unspecified site, stage 3 Comment: coccyx (2) Amputation of left lower extremity Status: Acute Code(s): S88.912A - Complete traumatic amputation of left lower leg, level unspecified, initial encounter (3) Immobility Status: Acute Code(s): Z74.09 - Other reduced mobility (4) Hyperlipidemia Status: Chronic Code(s): E78.5 - Hyperlipidemia, unspecified (5) Hypertension Status: Chronic Code(s): I10 - Essential (primary) hypertension (6) Hypothyroidism Status: Chronic Code(s): E03.9 - Hypothyroidism, unspecified Type of Wound Date of Service: 05/21/18 Chief Complaint: stg 3 coccyx since November 2017 History of Wound: Patient presents today to the wound healing center for evaluation and treatment of a stage III pressure wound to her coccyx. She has a past medical history of left [id number] amputee, DVT, PE with long-term Coumadin anticoagulation, anemia, RA and OA. Patient and family believe the wound started around November 2017 due to pressure and constantly sitting in her chair. Her wound has been noted on multiple hospital admissions in the past. Cultures were previously done in January and demonstrated staph, Klebsiella, and Proteus and patient completed Levaquin and ampicillin therapy. The patient has also been in and out of the assisted. She is currently residing at home with her . Due to her amputation, her mobility is severely limited and she spends most of her time sitting in either her wheelchair or her reclining chair at home. She does have a hospital bed that she just recently started sleeping at night. She does state that she has an excoriated buttocks as well due to having to scoot from her wheelchair to reclining chair and wheelchair to bed. Her wound care thus far has consisted of calmoseptine applied twice daily. Denies any heavy drainage, though does state that the ulcer bleeds at times. Denies any systemic signs of infection at this time. The patient otherwise denies any fever, chills, nausea, vomiting, shortness of breath, chest pain or pressure, palpitations, orthopnea, lower extremity edema, syncope or presyncopal episodes. She denies trying offloading mechanisms at home at this time and does not have a wheelchair cushion. Progress of Wound: Size is improving, pain has improved somewhat as well. No increase in drainage or purulent exudate - Physical Exam Vital Signs Temp Pulse Resp BP 98.6 F 91 18 95/43 L 05/21/18 14:54 05/21/18 14:54 05/21/18 14:54 05/21/18 14:54 General: Alert, Oriented x3, Cooperative, No apparent distress HEENT: Atraumatic Lungs: Clear to auscultation Cardiovascular: Regular rate Skin: Ulcer/ Wound - stage 3 pressure ulcer coccyx with adherent slough, no signs of acute infection at this time. Neurological: Neuro grossly intact Psych/Mental Status: Normal Affect, Appropriate Debridement Note Post-Debridement Measurements/Treatment WC - Nurse 2 - General Ulcer CM Notes Start: 05/21/18 14:54 Freq: Status: Active Protocol: Activity Type Activity Date Activity User E-Sign Co-Sign Detail Recorded Client Recorded Date Recorded By Document 05/21/18 16:07 NATALIA [id number] 05/21/18 16:08 NATALIA 05/21/18 16:07 Wound Center Nurse 2 #2 Coccyx -Time 16:07 -Correct Patient Yes -Correct Side, Site, Position Yes -Correct Procedure Yes -Procedure Performed Yes -Type of Procedure Debridement -Clinical Debridement Subcutaneous -Post Debridement Size (cm) - Length 1.3 -Post Debridement Size (cm) - Width 1.3 -Post Debridement Size (cm) - Depth 0.3 -Total Square Cm 1.69 -Wound/Ulcer Outcome Not Healed -Ulcer Cleansing Rinsed/ Irrigated with Saline -Foul Odor after Cleansing No -Bioengineered Tissue No -Bleeding Controlled with Pressure -Treatment Response Procedure Tolerated Well Pain Scale: 0-10 Numeric Is Patient Pain Free? Yes Wound debrided: coccyx ulcer Laterality: Not Applicable Wound Grade/Stage: stg 3 Type of Debridement: Excisional debridement Anesthesia Used: 5% Lidocaine Gel Depth: in the subcutaneous layer Percentage of wound debrided: 100 Instrument Used: 5mm curette Tissue Removed: slough and devitalized tissue Severity: Fat Layer Exposed Amount of bleeding with debridement: Mild Bleeding Controlled with: Pressure Patient tolerated procedure well Assessment/Plan Assessment: See above diagnoses Plan: The patient was seen and examined at the wound center today and was updated on the plan of care. A subcutaneous debridement was performed today. The patient tolerated the procedure well. The patients wound care will consist of: Aquacel AG covered with optifoam to stage III coccyx and continue with calmoseptine to excoriation of buttocks. Pt to continue with offloading interventions such as turning q2h in bed at night and offloading when sitting. 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 Baseline bloodwork reviewed and prealbumin was very low, encouraged the use of high protien drinks and to drink at minimum 3-4 ensure drinks per day. Patient educated on the importance of diet on wound healing and instructed to increase protein and vitamin C intake. Patient verbalized understanding. Due to patient's limited mobility and stage III pressure ulcer, she would benefit from the use of a sliding board and the use of a gel cushion for her wheelchair. Orders for the supplies will be given. Patient will follow up at wound healing center in one week or sooner if needed. Pt also had hypokalemia and instructed to f/u with PCP. This note was generated with [employer] dictation software. It may contain incorrect words, spelling, and punctuation that were not noted in checking the note before signing. Code Visit 111xxx-113xx: [id number] Angie subq tissue 20 sq cm/<
--- NOTE | 2018-05-26 10:42 | PN.PCM_ITS ---
(1) Stage III pressure ulcer Status: Acute Code(s): L89.93 - Pressure ulcer of unspecified site, stage 3 Comment: coccyx (2) Amputation of left lower extremity Status: Acute Code(s): S88.912A - Complete traumatic amputation of left lower leg, level unspecified, initial encounter (3) Immobility Status: Acute Code(s): Z74.09 - Other reduced mobility (4) Hyperlipidemia Status: Chronic Code(s): E78.5 - Hyperlipidemia, unspecified (5) Hypertension Status: Chronic Code(s): I10 - Essential (primary) hypertension (6) Hypothyroidism Status: Chronic Code(s): E03.9 - Hypothyroidism, unspecified Type of Wound Date of Service: 05/21/18 Chief Complaint: stg 3 coccyx since November 2017 History of Wound: Patient presents today to the wound healing center for evaluation and treatment of a stage III pressure wound to her coccyx. She has a past medical history of left [id number] amputee, DVT, PE with long-term Coumadin anticoagulation, anemia, RA and OA. Patient and family believe the wound started around November 2017 due to pressure and constantly sitting in her chair. Her wound has been noted on multiple hospital admissions in the past. Cultures were previously done in January and demonstrated staph, Klebsiella, and Proteus and patient completed Levaquin and ampicillin therapy. The patient has also been in and out of the shelter. She is currently residing at home with her . Due to her amputation, her mobility is severely limited and she spends most of her time sitting in either her wheelchair or her reclining chair at home. She does have a hospital bed that she just recently started sleeping at night. She does state that she has an excoriated buttocks as well due to having to scoot from her wheelchair to reclining chair and wheelchair to bed. Her wound care thus far has consisted of calmoseptine applied twice daily. Denies any heavy drainage, though does state that the ulcer bleeds at times. Denies any systemic signs of infection at this time. The patient otherwise denies any fever, chills, nausea, vomiting, shortness of breath, chest pain or pressure, palpitations, orthopnea, lower extremity edema, syncope or presyncopal episodes. She denies trying offloading mechanisms at home at this time and does not have a wheelchair cushion. Progress of Wound: Size is improving, pain has improved somewhat as well. No increase in drainage or purulent exudate - Physical Exam Vital Signs Temp Pulse Resp BP 98.6 F 91 18 95/43 L 05/21/18 14:54 05/21/18 14:54 05/21/18 14:54 05/21/18 14:54 General: Alert, Oriented x3, Cooperative, No apparent distress HEENT: Atraumatic Lungs: Clear to auscultation Cardiovascular: Regular rate Skin: Ulcer/ Wound - stage 3 pressure ulcer coccyx with adherent slough, no signs of acute infection at this time. Neurological: Neuro grossly intact Psych/Mental Status: Normal Affect, Appropriate Debridement Note Post-Debridement Measurements/Treatment WC - Nurse 2 - General Ulcer CM Notes Start: 05/21/18 14:54 Freq: Status: Active Protocol: Activity Type Activity Date Activity User E-Sign Co-Sign Detail Recorded Client Recorded Date Recorded By Document 05/21/18 16:07 NATALIA [id number] 05/21/18 16:08 NATALIA 05/21/18 16:07 Wound Center Nurse 2 #2 Coccyx -Time 16:07 -Correct Patient Yes -Correct Side, Site, Position Yes -Correct Procedure Yes -Procedure Performed Yes -Type of Procedure Debridement -Clinical Debridement Subcutaneous -Post Debridement Size (cm) - Length 1.3 -Post Debridement Size (cm) - Width 1.3 -Post Debridement Size (cm) - Depth 0.3 -Total Square Cm 1.69 -Wound/Ulcer Outcome Not Healed -Ulcer Cleansing Rinsed/ Irrigated with Saline -Foul Odor after Cleansing No -Bioengineered Tissue No -Bleeding Controlled with Pressure -Treatment Response Procedure Tolerated Well Pain Scale: 0-10 Numeric Is Patient Pain Free? Yes Wound debrided: coccyx ulcer Laterality: Not Applicable Wound Grade/Stage: stg 3 Type of Debridement: Excisional debridement Anesthesia Used: 5% Lidocaine Gel Depth: in the subcutaneous layer Percentage of wound debrided: 100 Instrument Used: 5mm curette Tissue Removed: slough and devitalized tissue Severity: Fat Layer Exposed Amount of bleeding with debridement: Mild Bleeding Controlled with: Pressure Patient tolerated procedure well Assessment/Plan Assessment: See above diagnoses Plan: The patient was seen and examined at the wound center today and was updated on the plan of care. A subcutaneous debridement was performed today. The patient tolerated the procedure well. The patients wound care will consist of: Aquacel AG covered with optifoam to stage III coccyx and continue with calmoseptine to excoriation of buttocks. Pt to continue with offloading interventions such as turning q2h in bed at night and offloading when sitting. 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 Baseline bloodwork reviewed and prealbumin was very low, encouraged the use of high protien drinks and to drink at minimum 3-4 ensure drinks per day. Patient educated on the importance of diet on wound healing and instructed to increase protein and vitamin C intake. Patient verbalized understanding. Due to patient' s limited mobility and stage III pressure ulcer, she would benefit from the use of a sliding board and the use of a gel cushion for her wheelchair. Orders for the supplies will be given. Patient will follow up at wound healing center in one week or sooner if needed. Pt also had hypokalemia and instructed to f/u with PCP. This note was generated with [employer] dictation software. It may contain incorrect words, spelling, and punctuation that were not noted in checking the note before signing. Code Visit 111xxx-113xx: [id number] Angie subq tissue 20 sq cm/<
[2018-05-28 15:17] VITALS: BP 115/45; PULSE 88; RESP 16; TEMP 37
--- NOTE | 2018-05-28 21:55 | PCM.WC.PN ---
(1) Stage III pressure ulcer Status: Acute Code(s): L89.93 - Pressure ulcer of unspecified site, stage 3 Comment: coccyx (2) Amputation of left lower extremity Status: Acute Code(s): S88.912A - Complete traumatic amputation of left lower leg, level unspecified, initial encounter (3) Immobility Status: Acute Code(s): Z74.09 - Other reduced mobility (4) Hyperlipidemia Status: Chronic Code(s): E78.5 - Hyperlipidemia, unspecified (5) Hypertension Status: Chronic Code(s): I10 - Essential (primary) hypertension (6) Hypothyroidism Status: Chronic Code(s): E03.9 - Hypothyroidism, unspecified Type of Wound Date of Service: 05/28/18 Chief Complaint: stg 3 coccyx since November 2017 History of Wound: Patient presents today to the wound healing center for evaluation and treatment of a stage III pressure wound to her coccyx. She has a past medical history of left mbdqk-nye-zngm amputee, DVT, PE with long-term Coumadin anticoagulation, anemia, RA and OA. Patient and family believe the wound started around November 2017 due to pressure and constantly sitting in her chair. Her wound has been noted on multiple hospital admissions in the past. Cultures were previously done in January and demonstrated staph, Klebsiella, and Proteus and patient completed Levaquin and ampicillin therapy. The patient has also been in and out of the [facility]. She is currently residing at home with her . Due to her amputation, her mobility is severely limited and she spends most of her time sitting in either her wheelchair or her reclining chair at home. She does have a hospital bed that she just recently started sleeping at night. She does state that she has an excoriated buttocks as well due to having to scoot from her wheelchair to reclining chair and wheelchair to bed. Her wound care thus far has consisted of calmoseptine applied twice daily. Denies any heavy drainage, though does state that the ulcer bleeds at times. Denies any systemic signs of infection at this time. The patient otherwise denies any fever, chills, nausea, vomiting, shortness of breath, chest pain or pressure, palpitations, orthopnea, lower extremity edema, syncope or presyncopal episodes. She denies trying offloading mechanisms at home at this time and does not have a wheelchair cushion. Progress of Wound: Size stable, pain has improved somewhat as well. No increase in drainage or purulent exudate - Physical Exam Vital Signs Temp Pulse Resp BP 98.6 F 88 16 115/45 L 05/28/18 15:17 05/28/18 15:17 05/28/18 15:17 05/28/18 15:17 General: Alert, Oriented x3, Cooperative, No apparent distress HEENT: Atraumatic Skin: Ulcer/ Wound - stage 3 ulcer coccyx with adherant slough Neurological: Neuro grossly intact Psych/Mental Status: Normal Affect, Appropriate, Alert and oriented to time, place, person, mood and affect Debridement Note Post-Debridement Measurements/Treatment WC - Nurse 2 - General Ulcer CM Notes Start: 05/21/18 14:54 Freq: Status: Active Protocol: Activity Type Activity Date Activity User E-Sign Co-Sign Detail Recorded Client Recorded Date Recorded By Document 05/21/18 16:07 [id number] 05/21/18 16:08 Document 05/28/18 16:25 [id number] 05/28/18 16:26 05/21/18 05/28/18 16:07 16:25 Wound Center Nurse 2 #2 Coccyx -Time 16:07 16:25 -Correct Patient Yes Yes -Correct Side, Site, Position Yes Yes -Correct Procedure Yes Yes -Procedure Performed Yes Yes -Type of Procedure Debridement Debridement -Clinical Debridement Subcutaneous Subcutaneous -Post Debridement Size (cm) - Length 1.3 1.4 -Post Debridement Size (cm) - Width 1.3 1.2 -Post Debridement Size (cm) - Depth 0.3 0.2 -Total Square Cm 1.69 1.68 -Wound/Ulcer Outcome Not Healed Not Healed -Ulcer Cleansing Rinsed/ Rinsed/ Irrigated with Irrigated with Saline Saline -Foul Odor after Cleansing No No -Bioengineered Tissue No No -Topical Lidocaine (%) 4 -Lidocaine (ml) 5 -Bleeding Controlled with Pressure NA -Treatment Response Procedure Procedure Tolerated Well Tolerated Well Pain Scale: 0-10 Numeric Is Patient Pain Free? Yes Yes Wound debrided: coccyx Wound Grade/Stage: stage 3 Type of Debridement: Excisional debridement Anesthesia Used: 5% Lidocaine Gel Depth: in the subcutaneous layer Percentage of wound debrided: 100 Instrument Used: 5mm curette Tissue Removed: slough and devitalized tissue Severity: Fat Layer Exposed Amount of bleeding with debridement: Mild Bleeding Controlled with: Pressure Patient tolerated procedure well Assessment/Plan Assessment: See above diagnoses Plan: The patient was seen and examined at the wound center today and was updated on the plan of care. A subcutaneous debridement was performed today. The patient tolerated the procedure well. The patients wound care will consist of: Aquacel AG covered with optifoam to stage III coccyx and continue with calmoseptine to excoriation of buttocks. Her optifoam just came in earlier this week and therefore has only used it for three days. Pt to continue with offloading interventions such as turning q2h in bed at night and offloading when sitting. 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 Baseline bloodwork reviewed and prealbumin was very low, encouraged the use of high protien drinks and to drink at minimum 3-4 ensure drinks per day. Patient educated on the importance of diet on wound healing and instructed to increase protein and vitamin C intake. Patient verbalized understanding. Due to patient's limited mobility and stage III pressure ulcer, she would benefit from the use of a sliding board and the use of a gel cushion for her wheelchair. Orders for the supplies will be given. Patient will follow up at wound healing center in one week or sooner if needed. Pt also had hypokalemia and instructed to f/u with PCP. This note was generated with [employer] dictation software. It may contain incorrect words, spelling, and punctuation that were not noted in checking the note before signing. Code Visit 111xxx-113xx: 27151 Angie subq tissue 20 sq cm/<
--- NOTE | 2018-06-02 11:03 | PN.PCM_ITS ---
(1) Stage III pressure ulcer Status: Acute Code(s): L89.93 - Pressure ulcer of unspecified site, stage 3 Comment: coccyx (2) Amputation of left lower extremity Status: Acute Code(s): S88.912A - Complete traumatic amputation of left lower leg, level unspecified, initial encounter (3) Immobility Status: Acute Code(s): Z74.09 - Other reduced mobility (4) Hyperlipidemia Status: Chronic Code(s): E78.5 - Hyperlipidemia, unspecified (5) Hypertension Status: Chronic Code(s): I10 - Essential (primary) hypertension (6) Hypothyroidism Status: Chronic Code(s): E03.9 - Hypothyroidism, unspecified Type of Wound Date of Service: 05/28/18 Chief Complaint: stg 3 coccyx since November 2017 History of Wound: Patient presents today to the wound healing center for evaluation and treatment of a stage III pressure wound to her coccyx. She has a past medical history of left albrh-zfu-hclk amputee, DVT, PE with long-term Coumadin anticoagulation, anemia, RA and OA. Patient and family believe the wound started around November 2017 due to pressure and constantly sitting in her chair. Her wound has been noted on multiple hospital admissions in the past. Cultures were previously done in January and demonstrated staph, Klebsiella, and Proteus and patient completed Levaquin and ampicillin therapy. The patient has also been in and out of the residential. She is currently residing at home with her . Due to her amputation, her mobility is severely limited and she spends most of her time sitting in either her wheelchair or her reclining chair at home. She does have a hospital bed that she just recently started sleeping at night. She does state that she has an excoriated buttocks as well due to having to scoot from her wheelchair to reclining chair and wheelchair to bed. Her wound care thus far has consisted of calmoseptine applied twice daily. Denies any heavy drainage, though does state that the ulcer bleeds at times. Denies any systemic signs of infection at this time. The patient otherwise denies any fever, chills, nausea, vomiting, shortness of breath, chest pain or pressure, palpitations, orthopnea, lower extremity edema, syncope or presyncopal episodes. She denies trying offloading mechanisms at home at this time and does not have a wheelchair cushion. Progress of Wound: Size stable, pain has improved somewhat as well. No increase in drainage or purulent exudate - Physical Exam Vital Signs Temp Pulse Resp BP 98.6 F 88 16 115/45 L 05/28/18 15:17 05/28/18 15:17 05/28/18 15:17 05/28/18 15:17 General: Alert, Oriented x3, Cooperative, No apparent distress HEENT: Atraumatic Skin: Ulcer/ Wound - stage 3 ulcer coccyx with adherant slough Neurological: Neuro grossly intact Psych/Mental Status: Normal Affect, Appropriate, Alert and oriented to time, place, person, mood and affect Debridement Note Post-Debridement Measurements/Treatment WC - Nurse 2 - General Ulcer CM Notes Start: 05/21/18 14:54 Freq: Status: Active Protocol: Activity Type Activity Date Activity User E-Sign Co-Sign Detail Recorded Client Recorded Date Recorded By Document 05/21/18 16:07 [id number] 05/21/18 16:08 Document 05/28/18 16:25 [id number] 05/28/18 16:26 05/21/18 05/28/18 16:07 16:25 Wound Center Nurse 2 #2 Coccyx -Time 16:07 16:25 -Correct Patient Yes Yes -Correct Side, Site, Position Yes Yes -Correct Procedure Yes Yes -Procedure Performed Yes Yes -Type of Procedure Debridement Debridement -Clinical Debridement Subcutaneous Subcutaneous -Post Debridement Size (cm) - Length 1.3 1.4 -Post Debridement Size (cm) - Width 1.3 1.2 -Post Debridement Size (cm) - Depth 0.3 0.2 -Total Square Cm 1.69 1.68 -Wound/Ulcer Outcome Not Healed Not Healed -Ulcer Cleansing Rinsed/ Rinsed/ Irrigated with Irrigated with Saline Saline -Foul Odor after Cleansing No No -Bioengineered Tissue No No -Topical Lidocaine (%) 4 -Lidocaine (ml) 5 -Bleeding Controlled with Pressure NA -Treatment Response Procedure Procedure Tolerated Well Tolerated Well Pain Scale: 0-10 Numeric Is Patient Pain Free? Yes Yes Wound debrided: coccyx Wound Grade/Stage: stage 3 Type of Debridement: Excisional debridement Anesthesia Used: 5% Lidocaine Gel Depth: in the subcutaneous layer Percentage of wound debrided: 100 Instrument Used: 5mm curette Tissue Removed: slough and devitalized tissue Severity: Fat Layer Exposed Amount of bleeding with debridement: Mild Bleeding Controlled with: Pressure Patient tolerated procedure well Assessment/Plan Assessment: See above diagnoses Plan: The patient was seen and examined at the wound center today and was updated on the plan of care. A subcutaneous debridement was performed today. The patient tolerated the procedure well. The patients wound care will consist of: Aquacel AG covered with optifoam to stage III coccyx and continue with calmoseptine to excoriation of buttocks. Her optifoam just came in earlier this week and therefore has only used it for three days. Pt to continue with offloading interventions such as turning q2h in bed at night and offloading when sitting. 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 Baseline bloodwork reviewed and prealbumin was very low, encouraged the use of high protien drinks and to drink at minimum 3-4 ensure drinks per day. Patient educated on the importance of diet on wound healing and instructed to increase protein and vitamin C intake. Patient verbalized understanding. Due to patient' s limited mobility and stage III pressure ulcer, she would benefit from the use of a sliding board and the use of a gel cushion for her wheelchair. Orders for the supplies will be given. Patient will follow up at wound healing center in one week or sooner if needed. Pt also had hypokalemia and instructed to f/u with PCP. This note was generated with [employer] dictation software. It may contain incorrect words, spelling, and punctuation that were not noted in checking the note before signing. Code Visit 111xxx-113xx: 63057 Angie subq tissue 20 sq cm/<
[2018-06-04 15:07] VITALS: BP 122/65; PULSE 91; RESP 16; TEMP 37
--- NOTE | 2018-06-04 17:32 | PCM.WC.PN ---
(1) Stage III pressure ulcer Status: Acute Current Visit: Yes Code(s): L89.93 - Pressure ulcer of unspecified site, stage 3 Comment: coccyx (2) Amputation of left lower extremity Status: Acute Current Visit: No Code(s): S88.912A - Complete traumatic amputation of left lower leg, level unspecified, initial encounter (3) Immobility Status: Acute Current Visit: Yes Code(s): Z74.09 - Other reduced mobility (4) Hyperlipidemia Status: Chronic Current Visit: Yes Code(s): E78.5 - Hyperlipidemia, unspecified (5) Hypertension Status: Chronic Current Visit: Yes Code(s): I10 - Essential (primary) hypertension (6) Hypothyroidism Status: Chronic Current Visit: Yes Code(s): E03.9 - Hypothyroidism, unspecified Type of Wound Date of Service: 06/04/18 Chief Complaint: stg 3 coccyx since November 2017 History of Wound: Patient presents today to the wound healing center for evaluation and treatment of a stage III pressure wound to her coccyx. She has a past medical history of left gtpnx-ijz-vqoj amputee, DVT, PE with long-term Coumadin anticoagulation, anemia, RA and OA. Patient and family believe the wound started around November 2017 due to pressure and constantly sitting in her chair. Her wound has been noted on multiple hospital admissions in the past. Cultures were previously done in January and demonstrated staph, Klebsiella, and Proteus and patient completed Levaquin and ampicillin therapy. The patient has also been in and out of the longterm. She is currently residing at home with her . Due to her amputation, her mobility is severely limited and she spends most of her time sitting in either her wheelchair or her reclining chair at home. She does have a hospital bed that she just recently started sleeping at night. She does state that she has an excoriated buttocks as well due to having to scoot from her wheelchair to reclining chair and wheelchair to bed. Her wound care thus far has consisted of calmoseptine applied twice daily. Denies any heavy drainage, though does state that the ulcer bleeds at times. Denies any systemic signs of infection at this time. The patient otherwise denies any fever, chills, nausea, vomiting, shortness of breath, chest pain or pressure, palpitations, orthopnea, lower extremity edema, syncope or presyncopal episodes. She denies trying offloading mechanisms at home at this time and does not have a wheelchair cushion. Progress of Wound: Size stable, pain has improved somewhat as well. No increase in drainage or purulent exudate - Physical Exam Vital Signs Temp Pulse Resp BP 98.6 F 91 16 122/65 H 06/04/18 15:07 06/04/18 15:07 06/04/18 15:07 06/04/18 15:07 General: Alert, Oriented x3, Cooperative, No apparent distress HEENT: Atraumatic Cardiovascular: Regular rate Skin: Ulcer/ Wound - Coccyx ulcer present with adherent slough, no signs of systemic or acute infection at this time. Wound Measurements and Assessment WC - Nurse 1 - General Ulcer Measurement Start: 05/21/18 14:54 Freq: Status: Active Protocol: Activity Type Activity Date Activity User E-Sign Co-Sign Detail Recorded Client Recorded Date Recorded By Document 06/04/18 15:07 [id number] 06/04/18 15:09 06/04/18 15:07 Wound Center Nurse 1 [Ulcer Assessment] #2 Coccyx -Combined with other wound No -Current Size (cm) - Length 7.2 -Current Size (cm) - Width 1.3 -Current Size (cm) - Depth 0.4 -Total Square Cm 9.36 -Photo Taken No -Epithelialization Small 1-33% -Tunneling No -Undermining/Tunneling No -Exudate Amt Small (1-33%) -Exudate Type Serosanguineous -Wound Margin Distinct, Outline Attached -Granulation Amt Medium (34-66%) -Granulation Quality Mallory -Slough/Fibrin Yes -Necrosis Amt None Present (0 %) -Necrotic Tissue Type Adherent Slough -Structure Exposed None/Limited to Skin Breakdown -Texture (Alexus-wound Skin Appearance) No Abnormality Assessed -Moisture (Alexus-wound Skin Appearance No Abnormality ) Assessed -Color (Alexus-wound Skin Appearance) No Abnormality Assessed -Temperature (Alexus-wound Skin No Abnormality Appearance) (Pt Warm) -Tenderness on Palpation (Alexus-wound Yes Skin Appearance) -Ulcer Cleansing Rinsed/ Irrigated with Saline -Foul Odor after Cleansing No -Anesthetic Used 4% Lidocaine Solution [Edema Assessment] -Lower Limb Edema Present NA WC - Nurse 2 - General Ulcer CM Notes Start: 05/21/18 14:54 Freq: Status: Active Protocol: Activity Type Activity Date Activity User E-Sign Co-Sign Detail Recorded Client Recorded Date Recorded By Document 06/04/18 16:00 [id number] 06/04/18 16:01 06/04/18 16:00 Wound Center Nurse 2 [Procedure/Treatment] #2 Coccyx -Time 16:00 -Correct Patient Yes -Correct Side, Site, Position Yes -Correct Procedure Yes -Procedure Performed Yes -Type of Procedure Debridement -Clinical Debridement Subcutaneous -Post Debridement Size (cm) - Length 1.5 -Post Debridement Size (cm) - Width 1.2 -Post Debridement Size (cm) - Depth 0.4 -Total Square Cm 1.80 -Wound/Ulcer Outcome Not Healed -Ulcer Cleansing Rinsed/ Irrigated with Saline -Foul Odor after Cleansing No -Bioengineered Tissue No -Topical Lidocaine (%) 4 -Lidocaine (ml) 5 -Bleeding Controlled with NA -Treatment Response Procedure Tolerated Well [See Physician Procedure note for Specifics] Neurological: Neuro grossly intact Psych/Mental Status: Normal Affect, Appropriate, Alert and oriented to time, place, person, mood and affect Debridement Note Post-Debridement Measurements/Treatment WC - Nurse 2 - General Ulcer CM Notes Start: 05/21/18 14:54 Freq: Status: Active Protocol: Activity Type Activity Date Activity User E-Sign Co-Sign Detail Recorded Client Recorded Date Recorded By Document 05/21/18 16:07 [id number] 05/21/18 16:08 Document 05/28/18 16:25 [email or web address] [id number] 05/28/18 16:26 Document 06/04/18 16:00 [id number] 06/04/18 16:01 05/21/18 05/28/18 06/04/18 16:07 16:25 16:00 Wound Center Nurse 2 #2 Coccyx -Time 16:07 16:25 16:00 -Correct Patient Yes Yes Yes -Correct Side, Site, Position Yes Yes Yes -Correct Procedure Yes Yes Yes -Procedure Performed Yes Yes Yes -Type of Procedure Debridement Debridement Debridement -Clinical Debridement Subcutaneous Subcutaneous Subcutaneous -Post Debridement Size (cm) - Length 1.3 1.4 1.5 -Post Debridement Size (cm) - Width 1.3 1.2 1.2 -Post Debridement Size (cm) - Depth 0.3 0.2 0.4 -Total Square Cm 1.69 1.68 1.80 -Wound/Ulcer Outcome Not Healed Not Healed Not Healed -Ulcer Cleansing Rinsed/ Rinsed/ Rinsed/ Irrigated with Irrigated with Irrigated with Saline Saline Saline -Foul Odor after Cleansing No No No -Bioengineered Tissue No No No -Topical Lidocaine (%) 4 4 -Lidocaine (ml) 5 5 -Bleeding Controlled with Pressure NA NA -Treatment Response Procedure Procedure Procedure Tolerated Well Tolerated Well Tolerated Well Pain Scale: 0-10 Numeric Is Patient Pain Free? Yes Yes Wound debrided: Stage III coccyx ulcer Type of Debridement: Excisional debridement Anesthesia Used: 5% Lidocaine Gel Depth: in the subcutaneous layer Percentage of wound debrided: 100 Instrument Used: 5mm curette Tissue Removed: Slough and devitalized tissue Severity: Fat Layer Exposed Amount of bleeding with debridement: Mild Bleeding Controlled with: Pressure Patient tolerated procedure well Assessment/Plan Active Problems Stage III pressure ulcer (Acute) coccyx Immobility (Acute) Hypothyroidism (Chronic) Hypertension (Chronic) Hyperlipidemia (Chronic) Assessment: See above diagnoses Plan: The patient was seen and examined at the wound center today and was updated on the plan of care. A subcutaneous debridement was performed today. The patient tolerated the procedure well. The patients wound care will consist of: Aquacel AG covered with optifoam to stage III coccyx and continue with calmoseptine to excoriation of buttocks. Pt to continue with offloading interventions such as turning q2h in bed at night and offloading when sitting. 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 Baseline bloodwork reviewed and prealbumin was very low, encouraged the use of high protien drinks and to drink at minimum 3-4 ensure drinks per day, however patient is noncompliant with this. Patient educated on the importance of diet on wound healing and instructed to increase protein and vitamin C intake. Patient verbalized understanding. Due to patient's limited mobility and stage III pressure ulcer, she would benefit from the use of a sliding board and the use of a gel cushion for her wheelchair. Orders for the supplies will be given. Patient will follow up at wound healing center in one week or sooner if needed. Pt also had hypokalemia and instructed to f/u with PCP. Will apply for the use of epicord due to the delayed healing of the wound. This note was generated with [employer] software. It may contain incorrect words, spelling, and punctuation that were not noted in checking the note before signing. Code Visit 111xxx-113xx: 40701 Angie subq tissue 20 sq cm/<
--- NOTE | 2018-06-04 17:37 | PN.PCM_ITS ---
(1) Stage III pressure ulcer Status: Acute Current Visit: Yes Code(s): L89.93 - Pressure ulcer of unspecified site, stage 3 Comment: coccyx (2) Amputation of left lower extremity Status: Acute Current Visit: No Code(s): S88.912A - Complete traumatic amputation of left lower leg, level unspecified, initial encounter (3) Immobility Status: Acute Current Visit: Yes Code(s): Z74.09 - Other reduced mobility (4) Hyperlipidemia Status: Chronic Current Visit: Yes Code(s): E78.5 - Hyperlipidemia, unspecified (5) Hypertension Status: Chronic Current Visit: Yes Code(s): I10 - Essential (primary) hypertension (6) Hypothyroidism Status: Chronic Current Visit: Yes Code(s): E03.9 - Hypothyroidism, unspecified Type of Wound Date of Service: 06/04/18 Chief Complaint: stg 3 coccyx since November 2017 History of Wound: Patient presents today to the wound healing center for evaluation and treatment of a stage III pressure wound to her coccyx. She has a past medical history of left jdxik-[id number]-gtqd amputee, DVT, PE with long-term Coumadin anticoagulation, anemia, RA and OA. Patient and family believe the wound started around November 2017 due to pressure and constantly sitting in her chair. Her wound has been noted on multiple hospital admissions in the past. Cultures were previously done in January and demonstrated staph, Klebsiella, and Proteus and patient completed Levaquin and ampicillin therapy. The patient has also been in and out of the senior care. She is currently residing at home with her . Due to her amputation, her mobility is severely limited and she spends most of her time sitting in either her wheelchair or her reclining chair at home. She does have a hospital bed that she just recently started sleeping at night. She does state that she has an excoriated buttocks as well due to having to scoot from her wheelchair to reclining chair and wheelchair to bed. Her wound care thus far has consisted of calmoseptine applied twice daily. Denies any heavy drainage, though does state that the ulcer bleeds at times. Denies any systemic signs of infection at this time. The patient otherwise denies any fever, chills, nausea, vomiting, shortness of breath, chest pain or pressure, palpitations, orthopnea, lower extremity edema, syncope or presyncopal episodes. She denies trying offloading mechanisms at home at this time and does not have a wheelchair cushion. Progress of Wound: Size stable, pain has improved somewhat as well. No increase in drainage or purulent exudate - Physical Exam Vital Signs Temp Pulse Resp BP 98.6 F 91 16 122/65 H 06/04/18 15:07 06/04/18 15:07 06/04/18 15:07 06/04/18 15:07 General: Alert, Oriented x3, Cooperative, No apparent distress HEENT: Atraumatic Cardiovascular: Regular rate Skin: Ulcer/ Wound - Coccyx ulcer present with adherent slough, no signs of systemic or acute infection at this time. Wound Measurements and Assessment WC - Nurse 1 - General Ulcer Measurement Start: 05/21/18 14:54 Freq: Status: Active Protocol: Activity Type Activity Date Activity User E-Sign Co-Sign Detail Recorded Client Recorded Date Recorded By Document 06/04/18 15:07 [id number] 06/04/18 15:09 06/04/18 15:07 Wound Center Nurse 1 [Ulcer Assessment] #2 Coccyx -Combined with other wound No -Current Size (cm) - Length 7.2 -Current Size (cm) - Width 1.3 -Current Size (cm) - Depth 0.4 -Total Square Cm 9.36 -Photo Taken No -Epithelialization Small 1-33% -Tunneling No -Undermining/Tunneling No -Exudate Amt Small (1-33%) -Exudate Type Serosanguineous -Wound Margin Distinct, Outline Attached -Granulation Amt Medium (34-66%) -Granulation Quality [place] -Slough/Fibrin Yes -Necrosis Amt None Present (0 %) -Necrotic Tissue Type Adherent Slough -Structure Exposed None/Limited to Skin Breakdown -Texture (Alexus-wound Skin Appearance) No Abnormality Assessed -Moisture (Alexus-wound Skin Appearance No Abnormality ) Assessed -Color (Alexus-wound Skin Appearance) No Abnormality Assessed -Temperature (Alexus-wound Skin No Abnormality Appearance) (Pt Warm) -Tenderness on Palpation (Alexus-wound Yes Skin Appearance) -Ulcer Cleansing Rinsed/ Irrigated with Saline -Foul Odor after Cleansing No -Anesthetic Used 4% Lidocaine Solution [Edema Assessment] -Lower Limb Edema Present NA WC - Nurse 2 - General Ulcer CM Notes Start: 05/21/18 14:54 Freq: Status: Active Protocol: Activity Type Activity Date Activity User E-Sign Co-Sign Detail Recorded Client Recorded Date Recorded By Document 06/04/18 16:00 [id number] 06/04/18 16:01 06/04/18 16:00 Wound Center Nurse 2 [Procedure/Treatment] #2 Coccyx -Time 16:00 -Correct Patient Yes -Correct Side, Site, Position Yes -Correct Procedure Yes -Procedure Performed Yes -Type of Procedure Debridement -Clinical Debridement Subcutaneous -Post Debridement Size (cm) - Length 1.5 -Post Debridement Size (cm) - Width 1.2 -Post Debridement Size (cm) - Depth 0.4 -Total Square Cm 1.80 -Wound/Ulcer Outcome Not Healed -Ulcer Cleansing Rinsed/ Irrigated with Saline -Foul Odor after Cleansing No -Bioengineered Tissue No -Topical Lidocaine (%) 4 -Lidocaine (ml) 5 -Bleeding Controlled with NA -Treatment Response Procedure Tolerated Well [See Physician Procedure note for Specifics] Neurological: Neuro grossly intact Psych/Mental Status: Normal Affect, Appropriate, Alert and oriented to time, place, person, mood and affect Debridement Note Post-Debridement Measurements/Treatment WC - Nurse 2 - General Ulcer CM Notes Start: 05/21/18 14:54 Freq: Status: Active Protocol: Activity Type Activity Date Activity User E-Sign Co-Sign Detail Recorded Client Recorded Date Recorded By Document 05/21/18 16:07 [id number] 05/21/18 16:08 Document 05/28/18 16:25 JS [id number] 05/28/18 16:26 Document 06/04/18 16:00 [id number] 06/04/18 16:01 05/21/18 05/28/18 06/04/18 16:07 16:25 16:00 Wound Center Nurse 2 #2 Coccyx -Time 16:07 16:25 16:00 -Correct Patient Yes Yes Yes -Correct Side, Site, Position Yes Yes Yes -Correct Procedure Yes Yes Yes -Procedure Performed Yes Yes Yes -Type of Procedure Debridement Debridement Debridement -Clinical Debridement Subcutaneous Subcutaneous Subcutaneous -Post Debridement Size (cm) - Length 1.3 1.4 1.5 -Post Debridement Size (cm) - Width 1.3 1.2 1.2 -Post Debridement Size (cm) - Depth 0.3 0.2 0.4 -Total Square Cm 1.69 1.68 1.80 -Wound/Ulcer Outcome Not Healed Not Healed Not Healed -Ulcer Cleansing Rinsed/ Rinsed/ Rinsed/ Irrigated with Irrigated with Irrigated with Saline Saline Saline -Foul Odor after Cleansing No No No -Bioengineered Tissue No No No -Topical Lidocaine (%) 4 4 -Lidocaine (ml) 5 5 -Bleeding Controlled with Pressure NA NA -Treatment Response Procedure Procedure Procedure Tolerated Well Tolerated Well Tolerated Well Pain Scale: 0-10 Numeric Is Patient Pain Free? Yes Yes Wound debrided: Stage III coccyx ulcer Type of Debridement: Excisional debridement Anesthesia Used: 5% Lidocaine Gel Depth: in the subcutaneous layer Percentage of wound debrided: 100 Instrument Used: 5mm curette Tissue Removed: Slough and devitalized tissue Severity: Fat Layer Exposed Amount of bleeding with debridement: Mild Bleeding Controlled with: Pressure Patient tolerated procedure well Assessment/Plan Active Problems Stage III pressure ulcer (Acute) coccyx Immobility (Acute) Hypothyroidism (Chronic) Hypertension (Chronic) Hyperlipidemia (Chronic) Assessment: See above diagnoses Plan: The patient was seen and examined at the wound center today and was updated on the plan of care. A subcutaneous debridement was performed today. The patient tolerated the procedure well. The patients wound care will consist of: Aquacel AG covered with optifoam to stage III coccyx and continue with calmoseptine to excoriation of buttocks. Pt to continue with offloading interventions such as turning q2h in bed at night and offloading when sitting. 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 Baseline bloodwork reviewed and prealbumin was very low, encouraged the use of high protien drinks and to drink at minimum 3-4 ensure drinks per day, however patient is noncompliant with this. Patient educated on the importance of diet on wound healing and instructed to increase protein and vitamin C intake. Patient verbalized understanding. Due to patient's limited mobility and stage III pressure ulcer, she would benefit from the use of a sliding board and the use of a gel cushion for her wheelchair. Orders for the supplies will be given. Patient will follow up at wound healing center in one week or sooner if needed. Pt also had hypokalemia and instructed to f/u with PCP. Will apply for the use of epicord due to the delayed healing of the wound. This note was generated with [employer] software. It may contain incorrect words, spelling, and punctuation that were not noted in checking the note before signing. Code Visit 111xxx-113xx: 08231 Angie subq tissue 20 sq cm/<
[2018-06-11 15:54] VITALS: BP 111/50; PULSE 76; RESP 16; TEMP 36
--- NOTE | 2018-06-11 20:01 | PCM.WC.PN ---
(1) Stage III pressure ulcer Status: Acute Code(s): L89.93 - Pressure ulcer of unspecified site, stage 3 Comment: coccyx (2) Amputation of left lower extremity Status: Acute Code(s): S88.912A - Complete traumatic amputation of left lower leg, level unspecified, initial encounter (3) Immobility Status: Acute Code(s): Z74.09 - Other reduced mobility (4) Hyperlipidemia Status: Chronic Code(s): E78.5 - Hyperlipidemia, unspecified (5) Hypertension Status: Chronic Code(s): I10 - Essential (primary) hypertension (6) Hypothyroidism Status: Chronic Code(s): E03.9 - Hypothyroidism, unspecified Type of Wound Date of Service: 06/11/18 Chief Complaint: stg 3 coccyx since November 2017 History of Wound: Patient presents today to the wound healing center for evaluation and treatment of a stage III pressure wound to her coccyx. She has a past medical history of left bnwyo-[id number]-ngyr amputee, DVT, PE with long-term Coumadin anticoagulation, anemia, RA and OA. Patient and family believe the wound started around November 2017 due to pressure and constantly sitting in her chair. Her wound has been noted on multiple hospital admissions in the past. Cultures were previously done in January and demonstrated staph, Klebsiella, and Proteus and patient completed Levaquin and ampicillin therapy. The patient has also been in and out of the [facility]. She is currently residing at home with her . Due to her amputation, her mobility is severely limited and she spends most of her time sitting in either her wheelchair or her reclining chair at home. She does have a hospital bed that she just recently started sleeping at night. She does state that she has an excoriated buttocks as well due to having to scoot from her wheelchair to reclining chair and wheelchair to bed. Her wound care thus far has consisted of calmoseptine applied twice daily. Denies any heavy drainage, though does state that the ulcer bleeds at times. Denies any systemic signs of infection at this time. The patient otherwise denies any fever, chills, nausea, vomiting, shortness of breath, chest pain or pressure, palpitations, orthopnea, lower extremity edema, syncope or presyncopal episodes. She denies trying offloading mechanisms at home at this time and does not have a wheelchair cushion. Progress of Wound: Size stable, pain has improved somewhat as well. No increase in drainage or purulent exudate - Physical Exam Vital Signs Temp Pulse Resp BP 96.8 F L 76 16 111/50 L 06/11/18 15:54 06/11/18 15:54 06/11/18 15:54 06/11/18 15:54 General: Alert, Oriented x3, Cooperative, No apparent distress HEENT: Atraumatic Cardiovascular: Regular rate Extremities: No edema Skin: Ulcer/ Wound - Stage III pressure ulcer present coccyx with adherent slough, no clinical signs of infection at this time, mild surrounding excoriation present Neurological: Neuro grossly intact Psych/Mental Status: Normal Affect, Alert and oriented to time, place, person, mood and affect Debridement Note Post-Debridement Measurements/Treatment WC - Nurse 2 - General Ulcer CM Notes Start: 05/21/18 14:54 Freq: Status: Active Protocol: Activity Type Activity Date Activity User E-Sign Co-Sign Detail Recorded Client Recorded Date Recorded By Document 05/21/18 16:07 [id number] 05/21/18 16:08 Document 05/28/18 16:25 JS [id number] 05/28/18 16:26 JS Document 06/04/18 16:00 JS [id number] 06/04/18 16:01 JS Document 06/11/18 16:50 [id number] 06/11/18 16:55 05/21/18 05/28/18 06/04/18 16:07 16:25 16:00 Wound Center Nurse 2 #2 Coccyx -Time 16:07 16:25 16:00 -Correct Patient Yes Yes Yes -Correct Side, Site, Position Yes Yes Yes -Correct Procedure Yes Yes Yes -Procedure Performed Yes Yes Yes -Type of Procedure Debridement Debridement Debridement -Clinical Debridement Subcutaneous Subcutaneous Subcutaneous -Post Debridement Size (cm) - Length 1.3 1.4 1.5 -Post Debridement Size (cm) - Width 1.3 1.2 1.2 -Post Debridement Size (cm) - Depth 0.3 0.2 0.4 -Total Square Cm 1.69 1.68 1.80 -Wound/Ulcer Outcome Not Healed Not Healed Not Healed -Ulcer Cleansing Rinsed/ Rinsed/ Rinsed/ Irrigated with Irrigated with Irrigated with Saline Saline Saline -Foul Odor after Cleansing No No No -Bioengineered Tissue No No No -Type of bioengineered Tissue -Expiration Date -Product Lot Number -Percent Used -Saline Lot Number -Topical Lidocaine (%) 4 4 -Lidocaine (ml) 5 5 -Bleeding Controlled with Pressure NA NA -Treatment Response Procedure Procedure Procedure Tolerated Well Tolerated Well Tolerated Well Pain Scale: 0-10 Numeric Is Patient Pain Free? Yes Yes 06/11/18 16:50 Wound Center Nurse 2 #2 Coccyx -Time 16:45 -Correct Patient Yes -Correct Side, Site, Position Yes -Correct Procedure Yes -Procedure Performed Yes -Type of Procedure Debridement -Clinical Debridement Subcutaneous -Post Debridement Size (cm) - Length 1.5 -Post Debridement Size (cm) - Width 1.6 -Post Debridement Size (cm) - Depth 0.5 -Total Square Cm 2.40 -Wound/Ulcer Outcome Not Healed -Ulcer Cleansing Rinsed/ Irrigated with Saline -Foul Odor after Cleansing No -Bioengineered Tissue No -Type of bioengineered Tissue EPICORD -Expiration Date 10/17/22 -Product Lot Number [id number] -Percent Used 100 -Saline Lot Number [id number] -Topical Lidocaine (%) -Lidocaine (ml) -Bleeding Controlled with Pressure -Treatment Response Procedure Tolerated Well Pain Scale: 0-10 Numeric Is Patient Pain Free? Yes Wound debrided: Stage III coccyx ulcer Type of Debridement: Excisional debridement Anesthesia Used: 5% Lidocaine Gel Depth: in the subcutaneous layer Percentage of wound debrided: 100 Instrument Used: 5mm curette Tissue Removed: Adherent slough and devitalized tissue Severity: Fat Layer Exposed Amount of bleeding with debridement: Mild Bleeding Controlled with: Pressure Patient tolerated procedure well Assessment/Plan Assessment: See above diagnoses Plan: The patient was seen and examined at the wound center today and was updated on the plan of care. A subcutaneous debridement was performed today. The patient tolerated the procedure well. The patients wound care will consist of: Epicord # 1 was applied after subcutaneous debridement, it was then covered with the wound veil and a thin layer of hydrogel, and secured with Steri-Strips, 100% of the at Epifix was used with 0% waste. Patient tolerated the procedure well. Pt to continue with offloading interventions such as turning q2h in bed at night and offloading when sitting. 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 Baseline bloodwork reviewed and prealbumin was very low, encouraged the use of high protien drinks and to drink at minimum 3-4 ensure drinks per day, however patient is noncompliant with this. Patient educated on the importance of diet on wound healing and instructed to increase protein and vitamin C intake. Patient verbalized understanding. Due to patient's limited mobility and stage III pressure ulcer, she would benefit from the use of a sliding board and the use of a gel cushion for her wheelchair. Orders for the supplies will be given. Patient will follow up at wound healing center in one week or sooner if needed. Pt also had hypokalemia and instructed to f/u with PCP. This note was generated with [employer] dictation software. It may contain incorrect words, spelling, and punctuation that were not noted in checking the note before signing. Code Visit 150xxx-152xx: 67297 Skin sub graft trnk/arm/leg
--- NOTE | 2018-06-16 10:04 | PN.PCM_ITS ---
(1) Stage III pressure ulcer Status: Acute Code(s): L89.93 - Pressure ulcer of unspecified site, stage 3 Comment: coccyx (2) Amputation of left lower extremity Status: Acute Code(s): S88.912A - Complete traumatic amputation of left lower leg, level unspecified, initial encounter (3) Immobility Status: Acute Code(s): Z74.09 - Other reduced mobility (4) Hyperlipidemia Status: Chronic Code(s): E78.5 - Hyperlipidemia, unspecified (5) Hypertension Status: Chronic Code(s): I10 - Essential (primary) hypertension (6) Hypothyroidism Status: Chronic Code(s): E03.9 - Hypothyroidism, unspecified Type of Wound Date of Service: 06/11/18 Chief Complaint: stg 3 coccyx since November 2017 History of Wound: Patient presents today to the wound healing center for evaluation and treatment of a stage III pressure wound to her coccyx. She has a past medical history of left sbdai-tub-ttqu amputee, DVT, PE with long-term Coumadin anticoagulation, anemia, RA and OA. Patient and family believe the wound started around November 2017 due to pressure and constantly sitting in her chair. Her wound has been noted on multiple hospital admissions in the past. Cultures were previously done in January and demonstrated staph, Klebsiella, and Proteus and patient completed Levaquin and ampicillin therapy. The patient has also been in and out of the group home. She is currently residing at home with her . Due to her amputation, her mobility is severely limited and she spends most of her time sitting in either her wheelchair or her reclining chair at home. She does have a hospital bed that she just recently started sleeping at night. She does state that she has an excoriated buttocks as well due to having to scoot from her wheelchair to reclining chair and wheelchair to bed. Her wound care thus far has consisted of calmoseptine applied twice daily. Denies any heavy drainage, though does state that the ulcer bleeds at times. Denies any systemic signs of infection at this time. The patient otherwise denies any fever, chills, nausea, vomiting, shortness of breath, chest pain or pressure, palpitations, orthopnea, lower extremity edema, syncope or presyncopal episodes. She denies trying offloading mechanisms at home at this time and does not have a wheelchair cushion. Progress of Wound: Size stable, pain has improved somewhat as well. No increase in drainage or purulent exudate - Physical Exam Vital Signs Temp Pulse Resp BP 96.8 F L 76 16 111/50 L 06/11/18 15:54 06/11/18 15:54 06/11/18 15:54 06/11/18 15:54 General: Alert, Oriented x3, Cooperative, No apparent distress HEENT: Atraumatic Cardiovascular: Regular rate Extremities: No edema Skin: Ulcer/ Wound - Stage III pressure ulcer present coccyx with adherent slough, no clinical signs of infection at this time, mild surrounding excoriation present Neurological: Neuro grossly intact Psych/Mental Status: Normal Affect, Alert and oriented to time, place, person, mood and affect Debridement Note Post-Debridement Measurements/Treatment WC - Nurse 2 - General Ulcer CM Notes Start: 05/21/18 14:54 Freq: Status: Active Protocol: Activity Type Activity Date Activity User E-Sign Co-Sign Detail Recorded Client Recorded Date Recorded By Document 05/21/18 16:07 [email or web address] 05/21/18 16:08 Document 05/28/18 16:25 JS [id number] 05/28/18 16:26 JS Document 06/04/18 16:00 JS [id number] 06/04/18 16:01 JS Document 06/11/18 16:50 [id number] 06/11/18 16:55 05/21/18 05/28/18 06/04/18 16:07 16:25 16:00 Wound Center Nurse 2 #2 Coccyx -Time 16:07 16:25 16:00 -Correct Patient Yes Yes Yes -Correct Side, Site, Position Yes Yes Yes -Correct Procedure Yes Yes Yes -Procedure Performed Yes Yes Yes -Type of Procedure Debridement Debridement Debridement -Clinical Debridement Subcutaneous Subcutaneous Subcutaneous -Post Debridement Size (cm) - Length 1.3 1.4 1.5 -Post Debridement Size (cm) - Width 1.3 1.2 1.2 -Post Debridement Size (cm) - Depth 0.3 0.2 0.4 -Total Square Cm 1.69 1.68 1.80 -Wound/Ulcer Outcome Not Healed Not Healed Not Healed -Ulcer Cleansing Rinsed/ Rinsed/ Rinsed/ Irrigated with Irrigated with Irrigated with Saline Saline Saline -Foul Odor after Cleansing No No No -Bioengineered Tissue No No No -Type of bioengineered Tissue -Expiration Date -Product Lot Number -Percent Used -Saline Lot Number -Topical Lidocaine (%) 4 4 -Lidocaine (ml) 5 5 -Bleeding Controlled with Pressure NA NA -Treatment Response Procedure Procedure Procedure Tolerated Well Tolerated Well Tolerated Well Pain Scale: 0-10 Numeric Is Patient Pain Free? Yes Yes 06/11/18 16:50 Wound Center Nurse 2 #2 Coccyx -Time 16:45 -Correct Patient Yes -Correct Side, Site, Position Yes -Correct Procedure Yes -Procedure Performed Yes -Type of Procedure Debridement -Clinical Debridement Subcutaneous -Post Debridement Size (cm) - Length 1.5 -Post Debridement Size (cm) - Width 1.6 -Post Debridement Size (cm) - Depth 0.5 -Total Square Cm 2.40 -Wound/Ulcer Outcome Not Healed -Ulcer Cleansing Rinsed/ Irrigated with Saline -Foul Odor after Cleansing No -Bioengineered Tissue No -Type of bioengineered Tissue EPICORD -Expiration Date 10/17/22 -Product Lot Number [id number] -Percent Used 100 -Saline Lot Number [id number] -Topical Lidocaine (%) -Lidocaine (ml) -Bleeding Controlled with Pressure -Treatment Response Procedure Tolerated Well Pain Scale: 0-10 Numeric Is Patient Pain Free? Yes Wound debrided: Stage III coccyx ulcer Type of Debridement: Excisional debridement Anesthesia Used: 5% Lidocaine Gel Depth: in the subcutaneous layer Percentage of wound debrided: 100 Instrument Used: 5mm curette Tissue Removed: Adherent slough and devitalized tissue Severity: Fat Layer Exposed Amount of bleeding with debridement: Mild Bleeding Controlled with: Pressure Patient tolerated procedure well Assessment/Plan Assessment: See above diagnoses Plan: The patient was seen and examined at the wound center today and was updated on the plan of care. A subcutaneous debridement was performed today. The patient tolerated the procedure well. The patients wound care will consist of: Epicord # 1 was applied after subcutaneous debridement, it was then covered with the wound veil and a thin layer of hydrogel, and secured with Steri-Strips , 100% of the at Epifix was used with 0% waste. Patient tolerated the procedure well. Pt to continue with offloading interventions such as turning q2h in bed at night and offloading when sitting. 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 Baseline bloodwork reviewed and prealbumin was very low, encouraged the use of high protien drinks and to drink at minimum 3-4 ensure drinks per day, however patient is noncompliant with this. Patient educated on the importance of diet on wound healing and instructed to increase protein and vitamin C intake. Patient verbalized understanding. Due to patient' s limited mobility and stage III pressure ulcer, she would benefit from the use of a sliding board and the use of a gel cushion for her wheelchair. Orders for the supplies will be given. Patient will follow up at wound healing center in one week or sooner if needed. Pt also had hypokalemia and instructed to f/u with PCP. This note was generated with [employer] dictation software. It may contain incorrect words, spelling, and punctuation that were not noted in checking the note before signing. Code Visit 150xxx-152xx: [id number] Skin sub graft trnk/arm/leg
== END 2018-06-16 23:59 ==
LOC: WC 15:45
PROVIDERS: Family Provider Family Medicine; PCP Family Medicine; Visit Provider Nurse Practitioner Family
DX: L89.153 Pressure ulcer of sacral region, stage 3 (principal); Z86.711 Personal history of pulmonary embolism; Z86.718 Personal history of other venous thrombosis and embolism; Z79.01 Long term (current) use of anticoagulants; M19.90 Unspecified osteoarthritis, unspecified site; M06.9 Rheumatoid arthritis, unspecified; I10 Essential (primary) hypertension; E78.5 Hyperlipidemia, unspecified; E87.6 Hypokalemia
CPT/HCPCS: 11042; 15271; Q4131

== ENCOUNTER 2018-06-29 19:28 | Emergency (ER) | payer MEDICARE, OTHER, SELFPAY ==
[2018-06-29 19:30] VITALS: BP 135/64; PULSE 83; RESP 18; O2SAT 99; BMI 18.8
[2018-06-29 19:33] VITALS: TEMP 36.6
[2018-06-29 20:52] LABS: Absolute Lymphocyte Count 2.35 X10^3/ul (0.83-4.51); Absolute Neutrophil Count 5.5 X10^3/uL (2.0-7.7); Basophil# 0.05 X10^3/uL; Basophil% 0.6 % (0-1); Eosinophils% 2.3 % (0-5); Hematocrit 30.3 % (37-47); Lymphocyte # 2.35 X10^3/ul (4.0); Lymphocyte % 26.9 % (19-41); Mean Corp Hgb Conc 29.7 g/gl (32-36); Mean Corpuscular Hgb 24.7 pg (27.0-32.0); Mean Corpuscular Volume 83.2 fL (81-99); Mean Platelet Vol. 8.4 fl (6.2-12.0); Monocyte# 0.66 X10^3/uL; Monocyte% 7.5 % (0-10); Neutrophil # 5.47 X10^3/uL (2.7-7.7); Neutrophil % 62.5 % (47-70); Platelet Count 650 K/mm3 (150-450); RBC Distribution Width CV 16.1 % (11.6-14.6); RBC Distribution Width SD 48.2 fl (35.1-43.9); Red Blood Count 3.64 M/mm3 (4.2-5.4); White Blood Count 8.8 K/mm3 (4.4-11.0)
[2018-06-29 20:53] LABS: POSITIVE COUNT NO; POSITIVE DIFFERENTIAL NO; POSITIVE MORPHOLOGY NO
[2018-06-29 21:00] LABS: International Normalized Ratio 2.1
[2018-06-29 21:04] LABS: Anion Gap 6 (5-15); BUN 16 mg/dL (7-18); BUN/Creat Ratio 32.3 RATIO (10-20); Calcium,Total 8.6 mg/dL (8.5-10.1); Chloride 105 mmol/L (98-107); EST Glomerular Filtration Rate 127 mL/min (>60); Est Glom Filt Rate - Afr Amer 154 mL/min (>60); Estimated Creatinine Clearance 35.34 ml/min; Glucose 93 mg/dL (74-106); Potassium 3.4 mmol/L (3.5-5.1); Sodium Level 140 mmol/L (136-145)
--- NOTE | 2018-06-29 22:44 | ED.RN ---
pt requested pain meds. wants norco 7.5mg. Relayed message to Dr. Massey. PT has her home medications at bedside which include this dosage. Per verbal order from Dr. Massey, pt was able to take her home [place]. Water given. Family continues to stand at door. Women state that if pt goes home, they will need an ambulance ride home as they are unable to get pt into the car and in the house.
--- NOTE | 2018-06-29 22:53 | ED.DEP ---
ED Disposition - Plan for ED Patient: Disposition: Home or Assisted Living Chief Complaint: Chest Pain Instructions: ED Strain Chest Wall Referrals: Seferino Wheeler III, MD [Primary Care Provider] - 1 Week
[2018-06-29 23:34] VITALS: BP 127/61; PULSE 75; RESP 18; O2SAT 95
--- NOTE | 2018-06-30 02:41 | ED.DCSUM_ITS ---
- ER Visit Summary Date of Service: 06/30/18 Chief Complaint: Back pain, cough, chest pain History of Present Illness: The patient is a 82 F with a history of hypertension , high cholesterol, reflux disease, DVT and PE. Patient reports having acid reflux-like symptoms today with cough and clear fluid. Tonight she developed back pain and some mild chest heaviness. She denies shortness of breath. She denies any recent illness. Physical Examination: Vital signs unremarkable. Head neck examination unremarkable. Heart is regular rate and rhythm. Lung sounds are clear. She does have anterior chest wall tenderness to palpation. No crepitus. Back examination reveals tenderness in the thoracic paraspinals. Test Results: EKG is sinus at 67 with no sign of acute ischemia. Chest x-ray shows no acute disease. CBC reveals a hemoglobin of 9.0 which is consistent with her baseline. Chemistry studies significant only for potassium of 3.4. INR is 2.1. Troponin is less than 0.015. Emergency Department Course and Treatment: Patient initially declined anything for pain. While she was here she did ask take her home dose of [place]. Test results were discussed with patient and family at bedside. At this time I believe her symptoms are musculoskeletal in nature from coughing. I see no sign of acute infection that requires antibiotics. Treatment Plan: [] Disposition: Discharge Impression: Musculoskeletal chest and back pain This note was generated with [employer] dictation software. It may contain incorrect words, spelling, and punctuation that were not noted in review of the chart prior to signing ED Disposition - Plan for ED Patient: Disposition: Home or Assisted Living Chief Complaint: Chest Pain Instructions: ED Strain Chest Wall Referrals: Seferino Wheeler III, MD [Primary Care Provider] - 1 Week
== END 2018-06-29 23:35 | disposition home or self-care (01) ==
PROVIDERS: Emergency Provider Emergency Medicine; Family Provider Family Medicine; PCP Family Medicine
DX: R07.89 Other chest pain (principal); M54.9 Dorsalgia, unspecified; R05 Cough; K21.9 Gastro-esophageal reflux disease without esophagitis; I10 Essential (primary) hypertension; E78.00 Pure hypercholesterolemia, unspecified; D64.9 Anemia, unspecified; E03.9 Hypothyroidism, unspecified; Z86.718 Personal history of other venous thrombosis and embolism; Z86.711 Personal history of pulmonary embolism; Z79.01 Long term (current) use of anticoagulants; Z79.899 Other long term (current) drug therapy
CPT/HCPCS: 71045; 80048; 84484; 85025; 85610; 93005; 99285; A4216

== ENCOUNTER 2018-07-09 14:30 | Outpatient (RCR) | payer MEDICARE, OTHER, SELFPAY ==
[2018-06-17 01:06] VITALS: BP 111/50; PULSE 76; RESP 16; TEMP 36
[2018-06-18 14:15] VITALS: BP 122/60; PULSE 86; RESP 18; TEMP 36
--- NOTE | 2018-06-18 20:06 | PCM.WC.PN ---
(1) Stage III pressure ulcer Status: Acute Code(s): L89.93 - Pressure ulcer of unspecified site, stage 3 Comment: coccyx (2) Malnutrition Status: Acute Code(s): E46 - Unspecified protein-calorie malnutrition (3) Excoriation of buttock Status: Acute Qualifiers: Code(s): S30.810A - Abrasion of lower back and pelvis, initial encounter (4) Immobility Status: Acute Code(s): Z74.09 - Other reduced mobility Type of Wound Date of Service: 06/18/18 Chief Complaint: stg 3 coccyx since November 2017 History of Wound: Patient presents today to the wound healing center for evaluation and treatment of a stage III pressure wound to her coccyx. She has a past medical history of left osfob-xfy-rkip amputee, DVT, PE with long-term Coumadin anticoagulation, anemia, RA and OA. Patient and family believe the wound started around November 2017 due to pressure and constantly sitting in her chair. Her wound has been noted on multiple hospital admissions in the past. Cultures were previously done in January and demonstrated staph, Klebsiella, and Proteus and patient completed Levaquin and ampicillin therapy. The patient has also been in and out of the senior care. She is currently residing at home with her . Due to her amputation, her mobility is severely limited and she spends most of her time sitting in either her wheelchair or her reclining chair at home. She does have a hospital bed that she just recently started sleeping at night. She does state that she has an excoriated buttocks as well due to having to scoot from her wheelchair to reclining chair and wheelchair to bed. Her wound care thus far has consisted of calmoseptine applied twice daily. Denies any heavy drainage, though does state that the ulcer bleeds at times. Denies any systemic signs of infection at this time. The patient otherwise denies any fever, chills, nausea, vomiting, shortness of breath, chest pain or pressure, palpitations, orthopnea, lower extremity edema, syncope or presyncopal episodes. She denies trying offloading mechanisms at home at this time and does not have a wheelchair cushion. Progress of Wound: Size stable, pain has improved somewhat as well. No increase in drainage or purulent exudate, previous epicord only stayed on for 2 days and then fell off after patient was cleaning the area - Physical Exam Vital Signs Temp Pulse Resp BP 96.8 F L 86 18 122/60 H 06/18/18 14:15 06/18/18 14:15 06/18/18 14:15 06/18/18 14:15 General: Alert, Oriented x3, Cooperative, No apparent distress HEENT: Atraumatic Cardiovascular: Regular rate Skin: Ulcer/ Wound - stage 3 coccyx ulcer with adherant slough present, no signs of infection or purulent exudate, site is nontender Neurological: Neuro grossly intact Psych/Mental Status: Normal Affect, Appropriate, Alert and oriented to time, place, person, mood and affect Debridement Note Post-Debridement Measurements/Treatment WC - Nurse 2 - General Ulcer CM Notes Start: 06/18/18 14:14 Freq: Status: Active Protocol: Activity Type Activity Date Activity User E-Sign Co-Sign Detail Recorded Client Recorded Date Recorded By Document 06/18/18 14:51 [id number] 06/18/18 14:53 06/18/18 14:51 Wound Center Nurse 2 #2 Coccyx -Time 14:51 -Correct Patient Yes -Correct Side, Site, Position Yes -Correct Procedure Yes -Procedure Performed Yes -Type of Procedure Debridement -Clinical Debridement Subcutaneous -Post Debridement Size (cm) - Length 1.4 -Post Debridement Size (cm) - Width 1.3 -Post Debridement Size (cm) - Depth 0.4 -Total Square Cm 1.82 -Wound/Ulcer Outcome Not Healed -Ulcer Cleansing Not Cleansed -Foul Odor after Cleansing No -Bioengineered Tissue Yes -Type of bioengineered Tissue EPICORD -Expiration Date 10/17/22 -Product Lot Number [id number] -Percent Used 100 -Bleeding Controlled with NA -Treatment Response Procedure Tolerated Well Pain Scale: 0-10 Numeric Is Patient Pain Free? Yes Wound debrided: stage 3 coccyx ulcer Type of Debridement: Excisional debridement Anesthesia Used: 5% Lidocaine Gel Depth: in the subcutaneous layer Percentage of wound debrided: 100 Instrument Used: 5mm curette Tissue Removed: slough and devitalized tissue Severity: Fat Layer Exposed Amount of bleeding with debridement: Mild Bleeding Controlled with: Pressure Patient tolerated procedure well Assessment/Plan Assessment: See above diagnoses Plan: The patient was seen and examined at the wound center today and was updated on the plan of care. A subcutaneous debridement was performed today. The patient tolerated the procedure well. The patients wound care will consist of: Epicord # 2 was applied after subcutaneous debridement, it was then covered with the wound veil and and secured with Steri-Strips, 100% of the at Epifix was used with 0% waste. Allevyn was then placed for additional securement and cushion. Patient tolerated the procedure well. Pt to continue with offloading interventions such as turning q2h in bed at night and offloading when sitting. 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 Baseline bloodwork reviewed and prealbumin was very low, encouraged the use of high protien drinks and to drink at minimum 3-4 ensure drinks per day, however patient is noncompliant with this. Patient educated on the importance of diet on wound healing and instructed to increase protein and vitamin C intake. Patient verbalized understanding. Due to patient's limited mobility and stage III pressure ulcer, she would benefit from the use of a sliding board and the use of a gel cushion for her wheelchair. Orders for the supplies will be given. Patient will follow up at wound healing center in one week or sooner if needed. Pt also had hypokalemia and instructed to f/u with PCP. This note was generated with [employer] dictation software. It may contain incorrect words, spelling, and punctuation that were not noted in checking the note before signing. Code Visit 150xxx-152xx: 98416 Skin sub graft trnk/arm/leg
--- NOTE | 2018-06-23 11:10 | PN.PCM_ITS ---
(1) Stage III pressure ulcer Status: Acute Code(s): L89.93 - Pressure ulcer of unspecified site, stage 3 Comment: coccyx (2) Malnutrition Status: Acute Code(s): E46 - Unspecified protein-calorie malnutrition (3) Excoriation of buttock Status: Acute Qualifiers: Code(s): S30.810A - Abrasion of lower back and pelvis, initial encounter (4) Immobility Status: Acute Code(s): Z74.09 - Other reduced mobility Type of Wound Date of Service: 06/18/18 Chief Complaint: stg 3 coccyx since November 2017 History of Wound: Patient presents today to the wound healing center for evaluation and treatment of a stage III pressure wound to her coccyx. She has a past medical history of left jupmf-mrj-pjum amputee, DVT, PE with long-term Coumadin anticoagulation, anemia, RA and OA. Patient and family believe the wound started around November 2017 due to pressure and constantly sitting in her chair. Her wound has been noted on multiple hospital admissions in the past. Cultures were previously done in January and demonstrated staph, Klebsiella, and Proteus and patient completed Levaquin and ampicillin therapy. The patient has also been in and out of the [facility]. She is currently residing at home with her . Due to her amputation, her mobility is severely limited and she spends most of her time sitting in either her wheelchair or her reclining chair at home. She does have a hospital bed that she just recently started sleeping at night. She does state that she has an excoriated buttocks as well due to having to scoot from her wheelchair to reclining chair and wheelchair to bed. Her wound care thus far has consisted of calmoseptine applied twice daily. Denies any heavy drainage, though does state that the ulcer bleeds at times. Denies any systemic signs of infection at this time. The patient otherwise denies any fever, chills, nausea, vomiting, shortness of breath, chest pain or pressure, palpitations, orthopnea, lower extremity edema, syncope or presyncopal episodes. She denies trying offloading mechanisms at home at this time and does not have a wheelchair cushion. Progress of Wound: Size stable, pain has improved somewhat as well. No increase in drainage or purulent exudate, previous epicord only stayed on for 2 days and then fell off after patient was cleaning the area - Physical Exam Vital Signs Temp Pulse Resp BP 96.8 F L 86 18 122/60 H 06/18/18 14:15 06/18/18 14:15 06/18/18 14:15 06/18/18 14:15 General: Alert, Oriented x3, Cooperative, No apparent distress HEENT: Atraumatic Cardiovascular: Regular rate Skin: Ulcer/ Wound - stage 3 coccyx ulcer with adherant slough present, no signs of infection or purulent exudate, site is nontender Neurological: Neuro grossly intact Psych/Mental Status: Normal Affect, Appropriate, Alert and oriented to time, place, person, mood and affect Debridement Note Post-Debridement Measurements/Treatment WC - Nurse 2 - General Ulcer CM Notes Start: 06/18/18 14:14 Freq: Status: Active Protocol: Activity Type Activity Date Activity User E-Sign Co-Sign Detail Recorded Client Recorded Date Recorded By Document 06/18/18 14:51 [id number] 06/18/18 14:53 06/18/18 14:51 Wound Center Nurse 2 #2 Coccyx -Time 14:51 -Correct Patient Yes -Correct Side, Site, Position Yes -Correct Procedure Yes -Procedure Performed Yes -Type of Procedure Debridement -Clinical Debridement Subcutaneous -Post Debridement Size (cm) - Length 1.4 -Post Debridement Size (cm) - Width 1.3 -Post Debridement Size (cm) - Depth 0.4 -Total Square Cm 1.82 -Wound/Ulcer Outcome Not Healed -Ulcer Cleansing Not Cleansed -Foul Odor after Cleansing No -Bioengineered Tissue Yes -Type of bioengineered Tissue EPICORD -Expiration Date 10/17/22 -Product Lot Number [id number] -Percent Used 100 -Bleeding Controlled with NA -Treatment Response Procedure Tolerated Well Pain Scale: 0-10 Numeric Is Patient Pain Free? Yes Wound debrided: stage 3 coccyx ulcer Type of Debridement: Excisional debridement Anesthesia Used: 5% Lidocaine Gel Depth: in the subcutaneous layer Percentage of wound debrided: 100 Instrument Used: 5mm curette Tissue Removed: slough and devitalized tissue Severity: Fat Layer Exposed Amount of bleeding with debridement: Mild Bleeding Controlled with: Pressure Patient tolerated procedure well Assessment/Plan Assessment: See above diagnoses Plan: The patient was seen and examined at the wound center today and was updated on the plan of care. A subcutaneous debridement was performed today. The patient tolerated the procedure well. The patients wound care will consist of: Epicord # 2 was applied after subcutaneous debridement, it was then covered with the wound veil and and secured with Steri-Strips, 100% of the at Epifix was used with 0% waste. Allevyn was then placed for additional securement and cushion. Patient tolerated the procedure well. Pt to continue with offloading interventions such as turning q2h in bed at night and offloading when sitting. 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 Baseline bloodwork reviewed and prealbumin was very low, encouraged the use of high protien drinks and to drink at minimum 3-4 ensure drinks per day, however patient is noncompliant with this. Patient educated on the importance of diet on wound healing and instructed to increase protein and vitamin C intake. Patient verbalized understanding. Due to patient's limited mobility and stage III pressure ulcer, she would benefit from the use of a sliding board and the use of a gel cushion for her wheelchair. Orders for the supplies will be given. Patient will follow up at wound healing center in one week or sooner if needed. Pt also had hypokalemia and instructed to f/u with PCP. This note was generated with [employer] dictation software. It may contain incorrect words, spelling, and punctuation that were not noted in checking the note before signing. Code Visit 150xxx-152xx: 14885 Skin sub graft trnk/arm/leg
[2018-06-25 14:46] VITALS: BP 126/61; PULSE 86; RESP 16; TEMP 36.4
--- NOTE | 2018-06-25 18:33 | PCM.WC.PN ---
(1) Stage III pressure ulcer Status: Acute Code(s): L89.93 - Pressure ulcer of unspecified site, stage 3 Comment: coccyx (2) Malnutrition Status: Acute Code(s): E46 - Unspecified protein-calorie malnutrition (3) Excoriation of buttock Status: Acute Qualifiers: Code(s): S30.810A - Abrasion of lower back and pelvis, initial encounter (4) Immobility Status: Acute Code(s): Z74.09 - Other reduced mobility Type of Wound Date of Service: 06/25/18 Chief Complaint: stg 3 coccyx since November 2017 History of Wound: Patient presents today to the wound healing center for evaluation and treatment of a stage III pressure wound to her coccyx. She has a past medical history of left ohbse-rbj-pqwf amputee, DVT, PE with long-term Coumadin anticoagulation, anemia, RA and OA. Patient and family believe the wound started around November 2017 due to pressure and constantly sitting in her chair. Her wound has been noted on multiple hospital admissions in the past. Cultures were previously done in January and demonstrated staph, Klebsiella, and Proteus and patient completed Levaquin and ampicillin therapy. The patient has also been in and out of the [facility]. She is currently residing at home with her . Due to her amputation, her mobility is severely limited and she spends most of her time sitting in either her wheelchair or her reclining chair at home. She does have a hospital bed that she just recently started sleeping at night. She does state that she has an excoriated buttocks as well due to having to scoot from her wheelchair to reclining chair and wheelchair to bed. Her wound care thus far has consisted of calmoseptine applied twice daily. Denies any heavy drainage, though does state that the ulcer bleeds at times. Denies any systemic signs of infection at this time. The patient otherwise denies any fever, chills, nausea, vomiting, shortness of breath, chest pain or pressure, palpitations, orthopnea, lower extremity edema, syncope or presyncopal episodes. She denies trying offloading mechanisms at home at this time and does not have a wheelchair cushion. Progress of Wound: Size stable, pain has improved somewhat as well. No increase in drainage or purulent exudate, epicord stayed on for entire duration this time with allevyn placed over top. - Physical Exam Vital Signs Temp Pulse Resp BP 97.5 F L 86 16 126/61 H 06/25/18 14:46 06/25/18 14:46 06/25/18 14:46 06/25/18 14:46 General: Alert, Oriented x3, Cooperative, No apparent distress HEENT: Atraumatic Cardiovascular: Regular rate Skin: Ulcer/ Wound - ulcer present coccyx with adherant slough, surrounding excoriation improved, no signs of acute infection at this time. No discharge or redness at site Neurological: Neuro grossly intact Psych/Mental Status: Normal Affect, Appropriate, Alert and oriented to time, place, person, mood and affect Debridement Note Post-Debridement Measurements/Treatment WC - Nurse 2 - General Ulcer CM Notes Start: 06/18/18 14:14 Freq: Status: Active Protocol: Activity Type Activity Date Activity User E-Sign Co-Sign Detail Recorded Client Recorded Date Recorded By Document 06/18/18 14:51 [id number] 06/18/18 14:53 Document 06/25/18 15:53 [id number] 06/25/18 15:55 06/18/18 06/25/18 14:51 15:53 Wound Center Nurse 2 #2 Coccyx -Time 14:51 15:53 -Correct Patient Yes Yes -Correct Side, Site, Position Yes Yes -Correct Procedure Yes Yes -Procedure Performed Yes Yes -Type of Procedure Debridement Debridement -Clinical Debridement Subcutaneous Subcutaneous -Post Debridement Size (cm) - Length 1.4 1.0 -Post Debridement Size (cm) - Width 1.3 0.8 -Post Debridement Size (cm) - Depth 0.4 0.2 -Total Square Cm 1.82 0.80 -Wound/Ulcer Outcome Not Healed Not Healed -Ulcer Cleansing Not Cleansed Rinsed/ Irrigated with Saline -Foul Odor after Cleansing No No -Bioengineered Tissue Yes Yes -Type of bioengineered Tissue EPICORD EPICORD -Expiration Date 10/17/22 12/18/20 -Product Lot Number [id number] -Percent Used 100 100 -Bleeding Controlled with NA Pressure -Treatment Response Procedure Procedure Tolerated Well Tolerated Well Pain Scale: 0-10 Numeric Is Patient Pain Free? Yes Yes Wound debrided: stage 3 cocyx ulcer Type of Debridement: Excisional debridement Anesthesia Used: 5% Lidocaine Gel Depth: in the subcutaneous layer Percentage of wound debrided: 100 Instrument Used: 5mm curette Tissue Removed: slough and devitalized tissue Severity: Fat Layer Exposed Amount of bleeding with debridement: Mild Bleeding Controlled with: Pressure Patient tolerated procedure well Assessment/Plan Assessment: See above diagnoses Plan: The patient was seen and examined at the wound center today and was updated on the plan of care. A subcutaneous debridement was performed today. The patient tolerated the procedure well. The patients wound care will consist of: Epicord # 3 was applied after subcutaneous debridement, it was then covered with the wound veil and hydrogel and secured with Steri-Strips, 100% of the at Epicord was used with 0% waste. Allevyn was then placed for additional securement and cushion. Patient tolerated the procedure well. Pt to continue with offloading interventions such as turning q2h in bed at night and offloading when sitting. 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 Baseline bloodwork reviewed and prealbumin was very low, encouraged the use of high protien drinks and to drink at minimum 3-4 ensure drinks per day, however patient is noncompliant with this. Patient educated on the importance of diet on wound healing and instructed to increase protein and vitamin C intake. Patient verbalized understanding. Due to patient's limited mobility and stage III pressure ulcer, she would benefit from the use of a sliding board and the use of a gel cushion for her wheelchair. Orders for the supplies will be given. Patient will follow up at wound healing center in one week or sooner if needed. Pt also had hypokalemia and instructed to f/u with PCP. This note was generated with [employer] dictation software. It may contain incorrect words, spelling, and punctuation that were not noted in checking the note before signing. Code Visit 150xxx-152xx: [id number] Skin sub graft trnk/arm/leg
[2018-07-02 14:23] VITALS: BP 103/43; PULSE 73; RESP 18; TEMP 37
--- NOTE | 2018-07-02 18:39 | PCM.WC.PN ---
(1) Stage III pressure ulcer Status: Acute Current Visit: Yes Code(s): L89.93 - Pressure ulcer of unspecified site, stage 3 Comment: coccyx (2) Malnutrition Status: Acute Current Visit: Yes Code(s): E46 - Unspecified protein-calorie malnutrition (3) Excoriation of buttock Status: Acute Current Visit: Yes Qualifiers: Code(s): S30.810A - Abrasion of lower back and pelvis, initial encounter (4) Immobility Status: Acute Current Visit: Yes Code(s): Z74.09 - Other reduced mobility Type of Wound Date of Service: 07/02/18 Chief Complaint: stg 3 coccyx since November 2017 History of Wound: Patient presents today to the wound healing center for evaluation and treatment of a stage III pressure wound to her coccyx. She has a past medical history of left jkvza-dzc-isyl amputee, DVT, PE with long-term Coumadin anticoagulation, anemia, RA and OA. Patient and family believe the wound started around November 2017 due to pressure and constantly sitting in her chair. Her wound has been noted on multiple hospital admissions in the past. Cultures were previously done in January and demonstrated staph, Klebsiella, and Proteus and patient completed Levaquin and ampicillin therapy. The [facility]. She is currently residing at home with her . Due to her amputation, her mobility is severely limited and she spends most of her time sitting in either her wheelchair or her reclining chair at home. She does have a hospital bed that she just recently started sleeping at night. She does state that she has an excoriated buttocks as well due to having to scoot from her wheelchair to reclining chair and wheelchair to bed. Her wound care thus far has consisted of calmoseptine applied twice daily. Denies any heavy drainage, though does state that the ulcer bleeds at times. Denies any systemic signs of infection at this time. The patient otherwise denies any fever, chills, nausea, vomiting, shortness of breath, chest pain or pressure, palpitations, orthopnea, lower extremity edema, syncope or presyncopal episodes. She denies trying offloading mechanisms at home at this time and does not have a wheelchair cushion. Progress of Wound: Size worsened, previous epicord only stayed on for two days, pt states that it came off when she was sliding on and off the commode, pain has improved somewhat as well. No increase in drainage or purulent exudate - Physical Exam Vital Signs Temp Pulse Resp BP 98.6 F 73 18 103/43 L 07/02/18 14:23 07/02/18 14:23 07/02/18 14:23 07/02/18 14:23 General: Alert, Oriented x3, Cooperative, No apparent distress HEENT: Atraumatic Cardiovascular: Regular rate Extremities: No clubbing, No cyanosis, No edema Skin: Ulcer/ Wound - Coccyx ulcer present with adherent slough, no signs of acute infection at this time Wound Measurements and Assessment WC - Nurse 1 - General Ulcer Measurement Start: 06/18/18 14:14 Freq: Status: Active Protocol: Activity Type Activity Date Activity User E-Sign Co-Sign Detail Recorded Client Recorded Date Recorded By Document 07/02/18 14:23 TM [id number] 07/02/18 14:25 TM 07/02/18 14:23 Wound Center Nurse 1 [Ulcer Assessment] #2 Coccyx -Combined with other wound No -Current Size (cm) - Length 1.3 -Current Size (cm) - Width 1.0 -Current Size (cm) - Depth 0.4 -Total Square Cm 1.30 -Date of Last Picture (Recall this 07/02/18 field) -Photo Taken Yes -Epithelialization None Present -Tunneling No -Undermining/Tunneling No -Circular Undermining No -Classification - Thickness Full Thickness without Exposed Support Structure -Exudate Amt Medium (34-66%) -Exudate Type Serosanguineous -Wound Margin Distinct, Outline Attached -Granulation Amt Large (67-100%) -Granulation Quality Red -Slough/Fibrin Yes -Necrosis Amt Small (1-33%) -Necrotic Tissue Type Adherent Slough -Structure Exposed Fascia Fat Layer Exposed -Texture (Alexus-wound Skin Appearance) No Abnormality Assessed -Moisture (Alexus-wound Skin Appearance No Abnormality ) Assessed -Color (Alexus-wound Skin Appearance) No Abnormality Assessed -Temperature (Alexus-wound Skin No Abnormality Appearance) (Pt Warm) -Tenderness on Palpation (Alexus-wound No Skin Appearance) -Ulcer Cleansing Rinsed/ Irrigated with Saline -Foul Odor after Cleansing No -Anesthetic Used 5% Lidocaine Gel [Edema Assessment] -Lower Limb Edema Present No WC - Nurse 2 - General Ulcer CM Notes Start: 06/18/18 14:14 Freq: Status: Active Protocol: Activity Type Activity Date Activity User E-Sign Co-Sign Detail Recorded Client Recorded Date Recorded By Document 07/02/18 14:45 [id number] 07/02/18 14:48 07/02/18 14:45 Wound Center Nurse 2 [Procedure/Treatment] #2 Coccyx -Time 14:45 -Correct Patient Yes -Correct Side, Site, Position Yes -Correct Procedure Yes -Procedure Performed Yes -Type of Procedure Debridement -Clinical Debridement Subcutaneous -Post Debridement Size (cm) - Length 1.2 -Post Debridement Size (cm) - Width 1.3 -Post Debridement Size (cm) - Depth 0.4 -Total Square Cm 1.56 -Wound/Ulcer Outcome Not Healed -Ulcer Cleansing Not Cleansed -Foul Odor after Cleansing No -Bioengineered Tissue Yes -Type of bioengineered Tissue EPIFIX -Expiration Date 03/17/23 -Product Lot Number [id number] -Percent Used 100 -Saline Lot Number [id number] -Bleeding Controlled with Pressure -Treatment Response Procedure Tolerated Well [See Physician Procedure note for Specifics] Pain Scale: 0-10 Numeric [Pain] -Is Patient Pain Free? Yes Neurological: Neuro grossly intact Psych/Mental Status: Normal Affect, Appropriate, Alert and oriented to time, place, person, mood and affect Debridement Note Post-Debridement Measurements/Treatment WC - Nurse 2 - General Ulcer CM Notes Start: 06/18/18 14:14 Freq: Status: Active Protocol: Activity Type Activity Date Activity User E-Sign Co-Sign Detail Recorded Client Recorded Date Recorded By Document 06/18/18 14:51 [id number] 06/18/18 14:53 CS Document 06/25/18 15:53 [id number] 06/25/18 15:55 CS Document 07/02/18 14:45 [id number] 07/02/18 14:48 06/18/18 06/25/18 07/02/18 14:51 15:53 14:45 Wound Center Nurse 2 #2 Coccyx -Time 14:51 15:53 14:45 -Correct Patient Yes Yes Yes -Correct Side, Site, Position Yes Yes Yes -Correct Procedure Yes Yes Yes -Procedure Performed Yes Yes Yes -Type of Procedure Debridement Debridement Debridement -Clinical Debridement Subcutaneous Subcutaneous Subcutaneous -Post Debridement Size (cm) - Length 1.4 1.0 1.2 -Post Debridement Size (cm) - Width 1.3 0.8 1.3 -Post Debridement Size (cm) - Depth 0.4 0.2 0.4 -Total Square Cm 1.82 0.80 1.56 -Wound/Ulcer Outcome Not Healed Not Healed Not Healed -Ulcer Cleansing Not Cleansed Rinsed/ Not Cleansed Irrigated with Saline -Foul Odor after Cleansing No No No -Bioengineered Tissue Yes Yes Yes -Type of bioengineered Tissue EPICORD EPICORD EPIFIX -Expiration Date 10/17/22 12/18/20 03/17/23 -Product Lot Number [id number] -Percent Used 100 100 100 -Saline Lot Number [id number] -Bleeding Controlled with NA Pressure Pressure -Treatment Response Procedure Procedure Procedure Tolerated Well Tolerated Well Tolerated Well Pain Scale: 0-10 Numeric Is Patient Pain Free? Yes Yes Yes Wound debrided: Stage III coccyx pressure ulcer Type of Debridement: Excisional debridement Anesthesia Used: 5% Lidocaine Gel Depth: in the subcutaneous layer Percentage of wound debrided: 100 Instrument Used: 5mm curette Tissue Removed: Slough and devitalized tissue Severity: Fat Layer Exposed Amount of bleeding with debridement: Mild Bleeding Controlled with: Pressure Patient tolerated procedure well Assessment/Plan Active Problems Stage III pressure ulcer (Acute) coccyx Excoriation of buttock (Acute) Immobility (Acute) Malnutrition (Acute) Assessment: See above diagnoses Plan: The patient was seen and examined at the wound center today and was updated on the plan of care. A subcutaneous debridement was performed today. The patient tolerated the procedure well. The patients wound care will consist of: Epifix # 4 was applied after subcutaneous debridement, it was then covered with the wound veil and secured with Steri-Strips, 100% of the at product was used with 0% waste. Allevyn was then placed for additional securement and cushion. Patient tolerated the procedure well. Pt to continue with offloading interventions such as turning q2h in bed at night and offloading when sitting, however she is noncompliant with this. 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 Baseline bloodwork reviewed and prealbumin was very low, encouraged the use of high protien drinks and to drink at minimum 3-4 ensure drinks per day, however patient is noncompliant with this. Patient educated on the importance of diet on wound healing and instructed to increase protein and vitamin C intake. Patient verbalized understanding. Due to patient's limited mobility and stage III pressure ulcer, she would benefit from the use of a sliding board and the use of a gel cushion for her wheelchair. Orders for the supplies will be given. Patient will follow up at wound healing center in one week or sooner if needed. Pt also had hypokalemia and instructed to f/u with PCP. This note was generated with [employer] dictation software. It may contain incorrect words, spelling, and punctuation that were not noted in checking the note before signing. Code Visit 150xxx-152xx: 39699 Skin sub graft trnk/arm/leg
[2018-07-09 15:03] VITALS: BP 115/53; PULSE 66; RESP 16; TEMP 36.2
--- NOTE | 2018-07-09 17:10 | PCM.WC.PN ---
(1) Stage III pressure ulcer Status: Acute Current Visit: Yes Code(s): L89.93 - Pressure ulcer of unspecified site, stage 3 Comment: coccyx (2) Malnutrition Status: Acute Current Visit: Yes Code(s): E46 - Unspecified protein-calorie malnutrition (3) Excoriation of buttock Status: Acute Current Visit: Yes Qualifiers: Code(s): S30.810A - Abrasion of lower back and pelvis, initial encounter (4) Immobility Status: Acute Current Visit: Yes Code(s): Z74.09 - Other reduced mobility Type of Wound Date of Service: 07/09/18 Chief Complaint: stg 3 coccyx since November 2017 History of Wound: Patient presents today to the wound healing center for evaluation and treatment of a stage III pressure wound to her coccyx. She has a past medical history of left amibb-khz-orfb amputee, DVT, PE with long-term Coumadin anticoagulation, anemia, RA and OA. Patient and family believe the wound started around November 2017 due to pressure and constantly sitting in her chair. Her wound has been noted on multiple hospital admissions in the past. Cultures were previously done in January and demonstrated staph, Klebsiella, and Proteus and patient completed Levaquin and ampicillin therapy. The patient [facility] also [facility] the [facility]. She is currently residing at home with her . Due to her amputation, her mobility is severely limited and she spends most of her time sitting in either her wheelchair or her reclining chair at home. She does have a hospital bed that she just recently started sleeping at night. She does state that she has an excoriated buttocks as well due to having to scoot from her wheelchair to reclining chair and wheelchair to bed. Her wound care thus far has consisted of calmoseptine applied twice daily. Denies any heavy drainage, though does state that the ulcer bleeds at times. Denies any systemic signs of infection at this time. The patient otherwise denies any fever, chills, nausea, vomiting, shortness of breath, chest pain or pressure, palpitations, orthopnea, lower extremity edema, syncope or presyncopal episodes. She denies trying offloading mechanisms at home at this time and does not have a wheelchair cushion. Progress of Wound: Size worsened, epifix did stay in place for week, unfortunately pt had skin reaction to adhesive and became very excoriated surrounding wound, noncompliant with protein supplementation and offloading, No increase in drainage or purulent exudate - Physical Exam Vital Signs Temp Pulse Resp BP 97.1 F L 66 16 115/53 L 07/09/18 15:03 07/09/18 15:03 07/09/18 15:03 07/09/18 15:03 General: Alert, Oriented x3, Cooperative, No apparent distress HEENT: Atraumatic Cardiovascular: Regular rate Extremities: No edema Skin: Ulcer/ Wound - stage 3 coccyx ulcer with adherant slough, no drainage or discharge, there is surrounding excoriation and erythema from the adhesives utilized prior Wound Measurements and Assessment WC - Nurse 1 - General Ulcer Measurement Start: 06/18/18 14:14 Freq: Status: Active Protocol: Activity Type Activity Date Activity User E-Sign Co-Sign Detail Recorded Client Recorded Date Recorded By Document 07/09/18 15:03 [id number] 07/09/18 15:24 07/09/18 15:03 Wound Center Nurse 1 [Ulcer Assessment] #2 Coccyx -Combined with other wound No -Current Size (cm) - Length 1.3 -Current Size (cm) - Width 1.3 -Current Size (cm) - Depth 0.3 -Total Square Cm 1.69 -Date of Last Picture (Recall this 07/02/18 field) -Photo Taken No -Epithelialization None Present -Tunneling No -Circular Undermining No -Classification - Thickness Full Thickness without Exposed Support Structure -Classification - Pressure Ulcer Stage 3 -Change in Wound Grade/Stage No Query Text:If change please identify the Stage/Grade in the comment (ie. S2 G3) -Exudate Amt Medium (34-66%) -Exudate Type Serous -Wound Margin Distinct, Outline Attached -Granulation Amt None Present (0 %) -Granulation Quality N/A -Slough/Fibrin Yes -Necrosis Amt None Present (0 %) -Necrotic Tissue Type Adherent Slough -Structure Exposed Fascia Fat Layer Exposed -Texture (Alexus-wound Skin Appearance) No Abnormality Assessed -Moisture (Alexus-wound Skin Appearance No Abnormality ) -Color (Alexus-wound Skin Appearance) No Abnormality Assessed -Temperature (Alexus-wound Skin No Abnormality Appearance) (Pt Warm) -Tenderness on Palpation (Alexus-wound Yes Skin Appearance) -Ulcer Cleansing Rinsed/ Irrigated with Saline -Foul Odor after Cleansing No -Anesthetic Used 5% Lidocaine Gel Neurological: Neuro grossly intact Psych/Mental Status: Normal Affect, Appropriate, Alert and oriented to time, place, person, mood and affect Debridement Note Post-Debridement Measurements/Treatment WC - Nurse 2 - General Ulcer CM Notes Start: 06/18/18 14:14 Freq: Status: Active Protocol: Activity Type Activity Date Activity User E-Sign Co-Sign Detail Recorded Client Recorded Date Recorded By Document 06/18/18 14:51 [id number] 06/18/18 14:53 Document 06/25/18 15:53 [id number] 06/25/18 15:55 CS Document 07/02/18 14:45 [id number] 07/02/18 14:48 06/18/18 06/25/18 07/02/18 14:51 15:53 14:45 Wound Center Nurse 2 #2 Coccyx -Time 14:51 15:53 14:45 -Correct Patient Yes Yes Yes -Correct Side, Site, Position Yes Yes Yes -Correct Procedure Yes Yes Yes -Procedure Performed Yes Yes Yes -Type of Procedure Debridement Debridement Debridement -Clinical Debridement Subcutaneous Subcutaneous Subcutaneous -Post Debridement Size (cm) - Length 1.4 1.0 1.2 -Post Debridement Size (cm) - Width 1.3 0.8 1.3 -Post Debridement Size (cm) - Depth 0.4 0.2 0.4 -Total Square Cm 1.82 0.80 1.56 -Wound/Ulcer Outcome Not Healed Not Healed Not Healed -Ulcer Cleansing Not Cleansed Rinsed/ Not Cleansed Irrigated with Saline -Foul Odor after Cleansing No No No -Bioengineered Tissue Yes Yes Yes -Type of bioengineered Tissue EPICORD EPICORD EPIFIX -Expiration Date 10/17/22 12/18/20 03/17/23 -Product Lot Number [id number] -Percent Used 100 100 100 -Saline Lot Number [id number] -Bleeding Controlled with NA Pressure Pressure -Treatment Response Procedure Procedure Procedure Tolerated Well Tolerated Well Tolerated Well Pain Scale: 0-10 Numeric Is Patient Pain Free? Yes Yes Yes Wound debrided: Stg 3 coccyx pressure ulcer Type of Debridement: Excisional debridement Anesthesia Used: 5% Lidocaine Gel Depth: Down to and including healthy tissue, in the subcutaneous layer Percentage of wound debrided: 100 Instrument Used: 5mm curette Tissue Removed: slough and devitalized tissue Severity: Fat Layer Exposed Amount of bleeding with debridement: Mild Bleeding Controlled with: Pressure Patient tolerated procedure well Assessment/Plan Active Problems Stage III pressure ulcer (Acute) coccyx Excoriation of buttock (Acute) Immobility (Acute) Malnutrition (Acute) Assessment: See above diagnoses Plan: The patient was seen and examined at the wound center today and was updated on the plan of care. A subcutaneous debridement was performed today. The patient tolerated the procedure well. The patients wound care will consist of: isaac and optifoam change daily and prn and calmoseptine to surrounding areas of excoriation. Pt to continue with offloading interventions such as turning q2h in bed at night and offloading when sitting, however she is noncompliant with this. 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 Baseline bloodwork reviewed and prealbumin was very low, encouraged the use of high protien drinks and to drink at minimum 3-4 ensure drinks per day, however patient is noncompliant with this. Patient educated on the importance of diet on wound healing and instructed to increase protein and vitamin C intake. Patient verbalized understanding. Due to patient's limited mobility and stage III pressure ulcer, she would benefit from the use of a sliding board and the use of a gel cushion for her wheelchair. Orders for the supplies will be given. Patient will follow up at wound healing center in 2 weeks or sooner if needed. This note was generated with [employer] dictation software. It may contain incorrect words, spelling, and punctuation that were not noted in checking the note before signing. Code Visit 111xxx-113xx: 09445 Angie subq tissue 20 sq cm/<
== END 2018-07-17 23:59 ==
LOC: WC 14:30
PROVIDERS: Family Provider Family Medicine; PCP Family Medicine; Visit Provider Nurse Practitioner Family
DX: L89.153 Pressure ulcer of sacral region, stage 3 (principal); Z86.711 Personal history of pulmonary embolism; Z86.718 Personal history of other venous thrombosis and embolism; Z79.01 Long term (current) use of anticoagulants; M06.9 Rheumatoid arthritis, unspecified; M19.90 Unspecified osteoarthritis, unspecified site; D64.9 Anemia, unspecified; Z89.612 Acquired absence of left leg above knee; Z91.19 Patient's noncompliance with other medical treatment and regimen
CPT/HCPCS: 11042; 15271; Q4131

== ENCOUNTER 2018-08-13 13:00 | Outpatient (RCR) | payer MEDICARE, OTHER, SELFPAY ==
[2018-07-18 01:11] VITALS: BP 115/53; PULSE 66; RESP 16; TEMP 36.2
[2018-07-23 13:57] VITALS: BP 123/84; PULSE 80; RESP 16; TEMP 36.8
--- NOTE | 2018-07-23 15:32 | PCM.WC.PN ---
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 Current Visit: No Code(s): S88.912A - Complete traumatic amputation of left lower leg, level unspecified, initial encounter (4) Immobility Status: Acute Current Visit: Yes Code(s): Z74.09 - Other reduced mobility (5) Malnutrition Status: Acute Current Visit: Yes Qualifiers: Malnutrition type: protein-calorie malnutrition Protein-calorie malnutrition severity: moderate Qualified Code(s): E44.0 - Moderate protein-calorie malnutrition Code(s): E46 - Unspecified protein-calorie malnutrition (6) Hypertension Status: Chronic Current Visit: No Code(s): I10 - Essential (primary) hypertension (7) Osteoporosis Status: Chronic Current Visit: No Code(s): M81.0 - Age-related osteoporosis without current pathological fracture Type of Wound Date of Service: 07/23/18 Chief Complaint: stg 3 coccyx since November 2017 History of Wound: Patient presents today to the wound healing center for evaluation and treatment of a stage III pressure wound to her coccyx. She has a past medical history of left [id number] amputee, DVT, PE with long-term Coumadin anticoagulation, anemia, RA and OA. Patient and family believe the wound started around November 2017 due to pressure and constantly sitting in her chair. Her wound has been noted on multiple hospital admissions in the past. Cultures were previously done in January and demonstrated staph, Klebsiella, and Proteus and patient completed Levaquin and ampicillin therapy. The patient has also been in and out of the group home. She is currently residing at home with her . Due to her amputation, her mobility is severely limited and she spends most of her time sitting in either her wheelchair or her reclining chair at home. She does have a hospital bed that she just recently started sleeping at night. She does state that she has an excoriated buttocks as well due to having to scoot from her wheelchair to reclining chair and wheelchair to bed. Her wound care thus far has consisted of calmoseptine applied twice daily. Denies any heavy drainage, though does state that the ulcer bleeds at times. Denies any systemic signs of infection at this time. The patient otherwise denies any fever, chills, nausea, vomiting, shortness of breath, chest pain or pressure, palpitations, orthopnea, lower extremity edema, syncope or presyncopal episodes. She denies trying offloading mechanisms at home at this time and does not have a wheelchair cushion. Progress of Wound: Size stable, has been using isaac daily, noncompliant with protein supplementation and offloading, No increase in drainage or purulent exudate - Physical Exam Vital Signs Temp Pulse Resp BP 98.2 F 80 16 123/84 H 07/23/18 13:57 07/23/18 13:57 07/23/18 13:57 07/23/18 13:57 General: Alert, Oriented x3, Cooperative, No apparent distress HEENT: Atraumatic Cardiovascular: Regular rate Skin: Ulcer/ Wound - Stage III pressure ulcer present coccyx with adherent slough present, minimal serous discharge per patient report, no signs of systemic or localized infection at this time. Wound Measurements and Assessment WC - Nurse 1 - General Ulcer Measurement Start: 07/23/18 13:57 Freq: Status: Active Protocol: Activity Type Activity Date Activity User E-Sign Co-Sign Detail Recorded Client Recorded Date Recorded By Document 07/23/18 13:57 [facility] [id number] 07/23/18 14:03 [facility] 07/23/18 13:57 Wound Center Nurse 1 [Ulcer Assessment] #2 Coccyx -Combined with other wound No -Current Size (cm) - Length 1.5 -Current Size (cm) - Width 1.4 -Current Size (cm) - Depth 0.4 -Total Square Cm 2.10 -Photo Taken No -Epithelialization None Present -Tunneling No -Undermining/Tunneling No -Circular Undermining No -Exudate Amt Small (1-33%) -Exudate Type Serosanguineous -Wound Margin Distinct, Outline Attached -Granulation Amt Small (1-33%) -Granulation Quality [place] -Slough/Fibrin Yes -Necrosis Amt Medium (34-66%) -Necrotic Tissue Type Adherent Slough -Texture (Alexus-wound Skin Appearance) Scarring -Moisture (Alexus-wound Skin Appearance Assessed ) -Color (Alexus-wound Skin Appearance) Erythema -Temperature (Alexus-wound Skin No Abnormality Appearance) (Pt Warm) -Tenderness on Palpation (Alexus-wound Yes Skin Appearance) -Ulcer Cleansing Rinsed/ Irrigated with Saline -Foul Odor after Cleansing No -Anesthetic Used 5% Lidocaine Gel WC - Nurse 2 - General Ulcer CM Notes Start: 07/23/18 13:57 Freq: Status: Active Protocol: Activity Type Activity Date Activity User E-Sign Co-Sign Detail Recorded Client Recorded Date Recorded By Document 07/23/18 14:21 [id number] 07/23/18 14:23 07/23/18 14:21 Wound Center Nurse 2 [Procedure/Treatment] -Time 14:21 -Correct Patient Yes -Correct Side, Site, Position Yes -Correct Procedure Yes -Procedure Performed Yes -Type of Procedure Debridement -Clinical Debridement Subcutaneous -Post Debridement Size (cm) - Length 1.5 -Post Debridement Size (cm) - Width 1.5 -Post Debridement Size (cm) - Depth 0.6 -Total Square Cm 2.25 -Wound/Ulcer Outcome Not Healed -Ulcer Cleansing Rinsed/ Irrigated with Saline -Foul Odor after Cleansing No -Bioengineered Tissue No -Topical Lidocaine (%) 4 -Lidocaine (ml) 5 -Bleeding Controlled with NA -Treatment Response Procedure Tolerated Well [See Physician Procedure note for Specifics] Pain Scale: 0-10 Numeric [Pain] -Is Patient Pain Free? Yes Neurological: Neuro grossly intact Psych/Mental Status: Normal Affect, Appropriate, Alert and oriented to time, place, person, mood and affect Debridement Note Post-Debridement Measurements/Treatment - Nurse 2 - General Ulcer CM Notes Start: 07/23/18 13:57 Freq: Status: Active Protocol: Activity Type Activity Date Activity User E-Sign Co-Sign Detail Recorded Client Recorded Date Recorded By Document 07/23/18 14:21 [id number] 07/23/18 14:23 07/23/18 14:21 Wound Center Nurse 2 #2 Coccyx -Time 14:21 -Correct Patient Yes -Correct Side, Site, Position Yes -Correct Procedure Yes -Procedure Performed Yes -Type of Procedure Debridement -Clinical Debridement Subcutaneous -Post Debridement Size (cm) - Length 1.5 -Post Debridement Size (cm) - Width 1.5 -Post Debridement Size (cm) - Depth 0.6 -Total Square Cm 2.25 -Wound/Ulcer Outcome Not Healed -Ulcer Cleansing Rinsed/ Irrigated with Saline -Foul Odor after Cleansing No -Bioengineered Tissue No -Topical Lidocaine (%) 4 -Lidocaine (ml) 5 -Bleeding Controlled with NA -Treatment Response Procedure Tolerated Well Pain Scale: 0-10 Numeric Is Patient Pain Free? Yes Wound debrided: Stage III coccyx pressure ulcer Type of Debridement: Excisional debridement Anesthesia Used: 5% Lidocaine Gel Depth: in the subcutaneous layer Percentage of wound debrided: 100 Instrument Used: 7mm curette Tissue Removed: Slough and devitalized tissue Severity: Fat Layer Exposed Amount of bleeding with debridement: Mild Bleeding Controlled with: Pressure Patient tolerated procedure well Assessment/Plan Active Problems Stage III pressure ulcer (Acute) coccyx Excoriation of buttock (Acute) Immobility (Acute) Malnutrition (Acute) Assessment: See above diagnoses Plan: The patient was seen and examined at the wound center today and was updated on the plan of care. A subcutaneous debridement was performed today. The patient tolerated the procedure well. The patients wound care will consist of: isaac and optifoam change daily and prn and calmoseptine to surrounding areas of excoriation. Pt to continue with offloading interventions such as turning q2h in bed at night and offloading when sitting, however she is noncompliant with this. 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 Baseline bloodwork reviewed and prealbumin was very low, encouraged the use of high protien drinks and to drink at minimum 3-4 ensure drinks per day, however patient is noncompliant with this. Patient educated on the importance of diet on wound healing and instructed to increase protein and vitamin C intake. Patient verbalized understanding. Due to patient's limited mobility and stage III pressure ulcer, she would benefit from the use of a sliding board and the use of a gel cushion for her wheelchair. Orders for the supplies will be given. The patient has not had marked improvement with standard wound care and is unable to prove compliant with advanced skin substitutes, will apply for snap VAC therapy. May need to consider a palliative wound plan in the future. Patient will follow up at wound healing center in 1 weeks or sooner if needed. This note was generated with [employer] software. It may contain incorrect words, spelling, and punctuation that were not noted in checking the note before signing. Code Visit 111xxx-113xx: [id number] Angie subq tissue 20 sq cm/<
[2018-07-30 12:54] VITALS: BP 107/51; PULSE 89; RESP 18; TEMP 36.6
--- NOTE | 2018-07-30 15:34 | PCM.WC.PN ---
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 Current Visit: No Code(s): S88.912A - Complete traumatic amputation of left lower leg, level unspecified, initial encounter (4) Immobility Status: Acute Current Visit: Yes Code(s): Z74.09 - Other reduced mobility (5) Malnutrition Status: Acute Current Visit: Yes Qualifiers: Malnutrition type: protein-calorie malnutrition Protein-calorie malnutrition severity: moderate Qualified Code(s): E44.0 - Moderate protein-calorie malnutrition Code(s): E46 - Unspecified protein-calorie malnutrition (6) Hypertension Status: Chronic Current Visit: No Code(s): I10 - Essential (primary) hypertension (7) Osteoporosis Status: Chronic Current Visit: No Code(s): M81.0 - Age-related osteoporosis without current pathological fracture Type of Wound Date of Service: 07/30/18 Chief Complaint: stg 3 coccyx since November 2017 History of Wound: Patient presents today to the wound healing center for evaluation and treatment of a stage III pressure wound to her coccyx. She has a past medical history of left [id number] amputee, DVT, PE with long-term Coumadin anticoagulation, anemia, RA and OA. Patient and family believe the wound started around November 2017 due to pressure and constantly sitting in her chair. Her wound has been noted on multiple hospital admissions in the past. Cultures were previously done in January and demonstrated staph, Klebsiella, and Proteus and patient completed Levaquin and ampicillin therapy. The patient has also been in and out of the care home. She is currently residing at home with her . Due to her amputation, her mobility is severely limited and she spends most of her time sitting in either her wheelchair or her reclining chair at home. She does have a hospital bed that she just recently started sleeping at night. She does state that she has an excoriated buttocks as well due to having to scoot from her wheelchair to reclining chair and wheelchair to bed. Her wound care thus far has consisted of calmoseptine applied twice daily. Denies any heavy drainage, though does state that the ulcer bleeds at times. Denies any systemic signs of infection at this time. The patient otherwise denies any fever, chills, nausea, vomiting, shortness of breath, chest pain or pressure, palpitations, orthopnea, lower extremity edema, syncope or presyncopal episodes. She denies trying offloading mechanisms at home at this time and does not have a wheelchair cushion. Progress of Wound: Size stable, has been using isaac daily, noncompliant with protein supplementation and offloading, No increase in drainage or purulent exudate, trial of snap vac today, if no marked improvement in the next couple weeks, pt would like to consider palliative wound care. - Physical Exam Vital Signs Temp Pulse Resp BP 97.8 F 89 18 107/51 L 07/30/18 12:54 07/30/18 12:54 07/30/18 12:54 07/30/18 12:54 General: Alert, Oriented x3, Cooperative, No apparent distress, - - malnoursihed HEENT: Atraumatic Cardiovascular: Regular rate Skin: Ulcer/ Wound - ulcer present coccyx with adherant slough, no redness, odor, or purulent drainage, minimal serous drainage Wound Measurements and Assessment WC - Nurse 1 - General Ulcer Measurement Start: 07/23/18 13:57 Freq: Status: Active Protocol: Activity Type Activity Date Activity User E-Sign Co-Sign Detail Recorded Client Recorded Date Recorded By Document 07/30/18 12:54 DL [id number] 07/30/18 13:05 DL 07/30/18 12:54 Wound Center Nurse 1 [Ulcer Assessment] #2 Coccyx -Current Size (cm) - Length 1.4 -Current Size (cm) - Width 1.5 -Current Size (cm) - Depth 0.4 -Total Square Cm 2.10 -Photo Taken No -Exudate Amt Small (1-33%) -Exudate Type Serosanguineous -Wound Margin Distinct, Outline Attached -Granulation Amt Medium (34-66%) -Granulation Quality [place] -Necrosis Amt Medium (34-66%) -Necrotic Tissue Type Adherent Slough -Structure Exposed N/A -Texture (Alexus-wound Skin Appearance) No Abnormality -Moisture (Alexus-wound Skin Appearance No Abnormality ) -Color (Alexus-wound Skin Appearance) No Abnormality -Temperature (Alexus-wound Skin No Abnormality Appearance) (Pt Warm) -Ulcer Cleansing Rinsed/ Irrigated with Saline -Foul Odor after Cleansing No -Anesthetic Used 4% Lidocaine Solution - Nurse 2 - General Ulcer CM Notes Start: 07/23/18 13:57 Freq: Status: Active Protocol: Activity Type Activity Date Activity User E-Sign Co-Sign Detail Recorded Client Recorded Date Recorded By Document 07/30/18 13:24 [id number] 07/30/18 13:25 07/30/18 13:24 Wound Center Nurse 2 [Procedure/Treatment] -Time 13:24 -Correct Patient Yes -Correct Side, Site, Position Yes -Correct Procedure Yes -Procedure Performed Yes -Type of Procedure Debridement -Clinical Debridement Subcutaneous -Post Debridement Size (cm) - Length 1.6 -Post Debridement Size (cm) - Width 1.5 -Post Debridement Size (cm) - Depth 0.6 -Total Square Cm 2.40 -Wound/Ulcer Outcome Not Healed -Ulcer Cleansing Not Cleansed -Foul Odor after Cleansing No -Bioengineered Tissue No -Bleeding Controlled with NA -Treatment Response Procedure Tolerated Well [See Physician Procedure note for Specifics] Pain Scale: 0-10 Numeric [Pain] -Is Patient Pain Free? Yes Neurological: Neuro grossly intact, - - nonambulatory Psych/Mental Status: Normal Affect, Appropriate, Alert and oriented to time, place, person, mood and affect Debridement Note Post-Debridement Measurements/Treatment - Nurse 2 - General Ulcer CM Notes Start: 07/23/18 13:57 Freq: Status: Active Protocol: Activity Type Activity Date Activity User E-Sign Co-Sign Detail Recorded Client Recorded Date Recorded By Document 07/23/18 14:21 [id number] 07/23/18 14:23 Document 07/30/18 13:24 [id number] 07/30/18 13:25 07/23/18 07/30/18 14:21 13:24 Wound Center Nurse 2 #2 Coccyx -Time 14:21 13:24 -Correct Patient Yes Yes -Correct Side, Site, Position Yes Yes -Correct Procedure Yes Yes -Procedure Performed Yes Yes -Type of Procedure Debridement Debridement -Clinical Debridement Subcutaneous Subcutaneous -Post Debridement Size (cm) - Length 1.5 1.6 -Post Debridement Size (cm) - Width 1.5 1.5 -Post Debridement Size (cm) - Depth 0.6 0.6 -Total Square Cm 2.25 2.40 -Wound/Ulcer Outcome Not Healed Not Healed -Ulcer Cleansing Rinsed/ Not Cleansed Irrigated with Saline -Foul Odor after Cleansing No No -Bioengineered Tissue No No -Topical Lidocaine (%) 4 -Lidocaine (ml) 5 -Bleeding Controlled with NA NA -Treatment Response Procedure Procedure Tolerated Well Tolerated Well Pain Scale: 0-10 Numeric Is Patient Pain Free? Yes Yes Wound debrided: stage 3 coccyx pressure ulcer Type of Debridement: Excisional debridement Anesthesia Used: 5% Lidocaine Gel Depth: in the subcutaneous layer Percentage of wound debrided: 100 Instrument Used: 5mm curette Tissue Removed: slough and devitalized tissue Severity: Fat Layer Exposed Amount of bleeding with debridement: Mild Bleeding Controlled with: Pressure Patient tolerated procedure well Assessment/Plan Active Problems Stage III pressure ulcer (Acute) coccyx Excoriation of buttock (Acute) Immobility (Acute) Malnutrition (Acute) Assessment: See above diagnoses Plan: The patient was seen and examined at the wound center today and was updated on the plan of care. A subcutaneous debridement was performed today. The patient tolerated the procedure well. The patients wound care will consist of: snap vac application. Pt to continue with offloading interventions such as turning q2h in bed at night and offloading when sitting, however she is noncompliant with this. 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 Baseline bloodwork reviewed and prealbumin was very low, encouraged the use of high protien drinks and to drink at minimum 3-4 ensure drinks per day, however patient is noncompliant with this. Patient educated on the importance of diet on wound healing and instructed to increase protein and vitamin C intake. Patient verbalized understanding. Due to patient's limited mobility and stage III pressure ulcer, she would benefit from the use of a sliding board and the use of a gel cushion for her wheelchair. Orders for the supplies will be given. The patient has not had marked improvement with standard wound care and is unable to prove compliant with advanced skin substitutes, if snap VAC therapy fails may need to consider a palliative wound plan in the future. Patient will follow up at wound healing center in 1 weeks or sooner if needed. This note was generated with [employer] software. It may contain incorrect words, spelling, and punctuation that were not noted in checking the note before signing. Code Visit 111xxx-113xx: [id number] Angie subq tissue 20 sq cm/<
--- NOTE | 2018-07-31 15:39 | PN.PCM_ITS ---
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 Current Visit: No Code(s): S88.912A - Complete traumatic amputation of left lower leg, level unspecified, initial encounter (4) Immobility Status: Acute Current Visit: Yes Code(s): Z74.09 - Other reduced mobility (5) Malnutrition Status: Acute Current Visit: Yes Qualifiers: Malnutrition type: protein-calorie malnutrition Protein-calorie malnutrition severity: moderate Qualified Code(s): E44.0 - Moderate protein- calorie malnutrition Code(s): E46 - Unspecified protein-calorie malnutrition (6) Hypertension Status: Chronic Current Visit: No Code(s): I10 - Essential (primary) hypertension (7) Osteoporosis Status: Chronic Current Visit: No Code(s): M81.0 - Age-related osteoporosis without current pathological fracture Type of Wound Date of Service: 07/30/18 Chief Complaint: stg 3 coccyx since November 2017 History of Wound: Patient presents today to the wound healing center for evaluation and treatment of a stage III pressure wound to her coccyx. She has a past medical history of left [id number]-jflj amputee, DVT, PE with long-term Coumadin anticoagulation, anemia, RA and OA. Patient and family believe the wound started around November 2017 due to pressure and constantly sitting in her chair. Her wound has been noted on multiple hospital admissions in the past. Cultures were previously done in January and demonstrated staph, Klebsiella, and Proteus and patient completed Levaquin and ampicillin therapy. The patient has also been in and out of the senior care. She is currently residing at home with her . Due to her amputation, her mobility is severely limited and she spends most of her time sitting in either her wheelchair or her reclining chair at home. She does have a hospital bed that she just recently started sleeping at night. She does state that she has an excoriated buttocks as well due to having to scoot from her wheelchair to reclining chair and wheelchair to bed. Her wound care thus far has consisted of calmoseptine applied twice daily. Denies any heavy drainage, though does state that the ulcer bleeds at times. Denies any systemic signs of infection at this time. The patient otherwise denies any fever, chills, nausea, vomiting, shortness of breath, chest pain or pressure, palpitations, orthopnea, lower extremity edema, syncope or presyncopal episodes. She denies trying offloading mechanisms at home at this time and does not have a wheelchair cushion. Progress of Wound: Size stable, has been using isaac daily, noncompliant with protein supplementation and offloading, No increase in drainage or purulent exudate, trial of snap vac today, if no marked improvement in the next couple weeks, pt would like to consider palliative wound care. - Physical Exam Vital Signs Temp Pulse Resp BP 97.8 F 89 18 107/51 L 07/30/18 12:54 07/30/18 12:54 07/30/18 12:54 07/30/18 12:54 General: Alert, Oriented x3, Cooperative, No apparent distress, - - malnoursihed HEENT: Atraumatic Cardiovascular: Regular rate Skin: Ulcer/ Wound - ulcer present coccyx with adherant slough, no redness, odor , or purulent drainage, minimal serous drainage Wound Measurements and Assessment WC - Nurse 1 - General Ulcer Measurement Start: 07/23/18 13:57 Freq: Status: Active Protocol: Activity Type Activity Date Activity User E-Sign Co-Sign Detail Recorded Client Recorded Date Recorded By Document 07/30/18 12:54 DL [id number] 07/30/18 13:05 DL 07/30/18 12:54 Wound Center Nurse 1 [Ulcer Assessment] #2 Coccyx -Current Size (cm) - Length 1.4 -Current Size (cm) - Width 1.5 -Current Size (cm) - Depth 0.4 -Total Square Cm 2.10 -Photo Taken No -Exudate Amt Small (1-33%) -Exudate Type Serosanguineous -Wound Margin Distinct, Outline Attached -Granulation Amt Medium (34-66%) -Granulation Quality [place] -Necrosis Amt Medium (34-66%) -Necrotic Tissue Type Adherent Slough -Structure Exposed N/A -Texture (Alexus-wound Skin Appearance) No Abnormality -Moisture (Alexus-wound Skin Appearance No Abnormality ) -Color (Alexus-wound Skin Appearance) No Abnormality -Temperature (Alexus-wound Skin No Abnormality Appearance) (Pt Warm) -Ulcer Cleansing Rinsed/ Irrigated with Saline -Foul Odor after Cleansing No -Anesthetic Used 4% Lidocaine Solution - Nurse 2 - General Ulcer CM Notes Start: 07/23/18 13:57 Freq: Status: Active Protocol: Activity Type Activity Date Activity User E-Sign Co-Sign Detail Recorded Client Recorded Date Recorded By Document 07/30/18 13:24 [id number] 07/30/18 13:25 07/30/18 13:24 Wound Center Nurse 2 [Procedure/Treatment] -Time 13:24 -Correct Patient Yes -Correct Side, Site, Position Yes -Correct Procedure Yes -Procedure Performed Yes -Type of Procedure Debridement -Clinical Debridement Subcutaneous -Post Debridement Size (cm) - Length 1.6 -Post Debridement Size (cm) - Width 1.5 -Post Debridement Size (cm) - Depth 0.6 -Total Square Cm 2.40 -Wound/Ulcer Outcome Not Healed -Ulcer Cleansing Not Cleansed -Foul Odor after Cleansing No -Bioengineered Tissue No -Bleeding Controlled with NA -Treatment Response Procedure Tolerated Well [See Physician Procedure note for Specifics] Pain Scale: 0-10 Numeric [Pain] -Is Patient Pain Free? Yes Neurological: Neuro grossly intact, - - nonambulatory Psych/Mental Status: Normal Affect, Appropriate, Alert and oriented to time, place, person, mood and affect Debridement Note Post-Debridement Measurements/Treatment - Nurse 2 - General Ulcer CM Notes Start: 07/23/18 13:57 Freq: Status: Active Protocol: Activity Type Activity Date Activity User E-Sign Co-Sign Detail Recorded Client Recorded Date Recorded By Document 07/23/18 14:21 [id number] 07/23/18 14:23 Document 07/30/18 13:24 [id number] 07/30/18 13:25 07/23/18 07/30/18 14:21 13:24 Wound Center Nurse 2 #2 Coccyx -Time 14:21 13:24 -Correct Patient Yes Yes -Correct Side, Site, Position Yes Yes -Correct Procedure Yes Yes -Procedure Performed Yes Yes -Type of Procedure Debridement Debridement -Clinical Debridement Subcutaneous Subcutaneous -Post Debridement Size (cm) - Length 1.5 1.6 -Post Debridement Size (cm) - Width 1.5 1.5 -Post Debridement Size (cm) - Depth 0.6 0.6 -Total Square Cm 2.25 2.40 -Wound/Ulcer Outcome Not Healed Not Healed -Ulcer Cleansing Rinsed/ Not Cleansed Irrigated with Saline -Foul Odor after Cleansing No No -Bioengineered Tissue No No -Topical Lidocaine (%) 4 -Lidocaine (ml) 5 -Bleeding Controlled with NA NA -Treatment Response Procedure Procedure Tolerated Well Tolerated Well Pain Scale: 0-10 Numeric Is Patient Pain Free? Yes Yes Wound debrided: stage 3 coccyx pressure ulcer Type of Debridement: Excisional debridement Anesthesia Used: 5% Lidocaine Gel Depth: in the subcutaneous layer Percentage of wound debrided: 100 Instrument Used: 5mm curette Tissue Removed: slough and devitalized tissue Severity: Fat Layer Exposed Amount of bleeding with debridement: Mild Bleeding Controlled with: Pressure Patient tolerated procedure well Assessment/Plan Active Problems Stage III pressure ulcer (Acute) coccyx Excoriation of buttock (Acute) Immobility (Acute) Malnutrition (Acute) Assessment: See above diagnoses Plan: The patient was seen and examined at the wound center today and was updated on the plan of care. A subcutaneous debridement was performed today. The patient tolerated the procedure well. The patients wound care will consist of: snap vac application. Pt to continue with offloading interventions such as turning q2h in bed at night and offloading when sitting, however she is noncompliant with this. 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 Baseline bloodwork reviewed and prealbumin was very low, encouraged the use of high protien drinks and to drink at minimum 3-4 ensure drinks per day, however patient is noncompliant with this. Patient educated on the importance of diet on wound healing and instructed to increase protein and vitamin C intake. Patient verbalized understanding. Due to patient's limited mobility and stage III pressure ulcer, she would benefit from the use of a sliding board and the use of a gel cushion for her wheelchair. Orders for the supplies will be given. The patient has not had marked improvement with standard wound care and is unable to prove compliant with advanced skin substitutes, if snap VAC therapy fails may need to consider a palliative wound plan in the future. Patient will follow up at wound healing center in 1 weeks or sooner if needed. This note was generated with [employer] software. It may contain incorrect words, spelling, and punctuation that were not noted in checking the note before signing. Code Visit 111xxx-113xx: [id number] Angie subq tissue 20 sq cm/<
[2018-08-03 13:01] VITALS: BP 127/56; PULSE 88; RESP 18; TEMP 36.3
[2018-08-06 13:49] VITALS: BP 141/62; PULSE 84; RESP 16; TEMP 36.6
--- NOTE | 2018-08-06 18:23 | PCM.WC.PN ---
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 Current Visit: No Code(s): S88.912A - Complete traumatic amputation of left lower leg, level unspecified, initial encounter (4) Immobility Status: Acute Current Visit: Yes Code(s): Z74.09 - Other reduced mobility (5) Malnutrition Status: Acute Current Visit: Yes Qualifiers: Malnutrition type: protein-calorie malnutrition Protein-calorie malnutrition severity: moderate Qualified Code(s): E44.0 - Moderate protein-calorie malnutrition Code(s): E46 - Unspecified protein-calorie malnutrition (6) Hypertension Status: Chronic Current Visit: No Code(s): I10 - Essential (primary) hypertension (7) Osteoporosis Status: Chronic Current Visit: No Code(s): M81.0 - Age-related osteoporosis without current pathological fracture Type of Wound Date of Service: 08/06/18 Chief Complaint: stg 3 coccyx since November 2017 History of Wound: Patient presents today to the wound healing center for evaluation and treatment of a stage III pressure wound to her coccyx. She has a past medical history of left gjqzm-iio-onoi amputee, DVT, PE with long-term Coumadin anticoagulation, anemia, RA and OA. Patient and family believe the wound started around November 2017 due to pressure and constantly sitting in her chair. Her wound has been noted on multiple hospital admissions in the past. Cultures were previously done in January and demonstrated staph, Klebsiella, and Proteus and patient completed Levaquin and ampicillin therapy. The patient has also been in and out of the [facility]. She is currently residing at home with her . Due to her amputation, her mobility is severely limited and she spends most of her time sitting in either her wheelchair or her reclining chair at home. She does have a hospital bed that she just recently started sleeping at night. She does state that she has an excoriated buttocks as well due to having to scoot from her wheelchair to reclining chair and wheelchair to bed. Her wound care thus far has consisted of calmoseptine applied twice daily. Denies any heavy drainage, though does state that the ulcer bleeds at times. Denies any systemic signs of infection at this time. The patient otherwise denies any fever, chills, nausea, vomiting, shortness of breath, chest pain or pressure, palpitations, orthopnea, lower extremity edema, syncope or presyncopal episodes. She denies trying offloading mechanisms at home at this time and does not have a wheelchair cushion. Progress of Wound: Size worsened, apparently the VAC did not seal appropriately after using it for a day and was compromised and patient just left in place and did not remove, No increase in drainage or purulent exudate, if no marked improvement in the next couple weeks, pt would like to consider palliative wound care. - Physical Exam Vital Signs Temp Pulse Resp BP 98 F 84 16 141/62 H 08/06/18 13:49 08/06/18 13:49 08/06/18 13:49 08/06/18 13:49 General: Alert, Oriented x3, Cooperative, No apparent distress HEENT: Atraumatic, PERRLA Cardiovascular: Regular rate, Regular Rhythm Skin: Ulcer/ Wound - Stage III pressure ulcer present on coccyx with adherent slough, no foul smell or purulent drainage no erythema Wound Measurements and Assessment WC - Nurse 1 - General Ulcer Measurement Start: 07/23/18 13:57 Freq: Status: Active Protocol: Activity Type Activity Date Activity User E-Sign Co-Sign Detail Recorded Client Recorded Date Recorded By Document 08/06/18 13:49 [facility] [id number] 08/06/18 13:59 [facility] 08/06/18 13:49 Wound Center Nurse 1 [Ulcer Assessment] #2 Coccyx -Combined with other wound No -Current Size (cm) - Length 1.3 -Current Size (cm) - Width 1.4 -Current Size (cm) - Depth 0.2 -Total Square Cm 1.82 -Date of Last Picture (Recall this 08/06/18 field) -Photo Taken Yes -Epithelialization None Present -Tunneling No -Undermining/Tunneling No -Circular Undermining No -Exudate Amt Large (67-100%) -Exudate Type Serosanguineous -Wound Margin Distinct, Outline Attached -Granulation Amt Small (1-33%) -Granulation Quality Red -Slough/Fibrin Yes -Necrosis Amt Large (67-100%) -Necrotic Tissue Type Adherent Slough -Texture (Alexus-wound Skin Appearance) Scarring -Moisture (Alexus-wound Skin Appearance Assessed ) -Color (Alexus-wound Skin Appearance) Erythema -Temperature (Alexus-wound Skin No Abnormality Appearance) (Pt Warm) -Tenderness on Palpation (Alexus-wound Yes Skin Appearance) -Ulcer Cleansing Wound Cleanser -Foul Odor after Cleansing No -Anesthetic Used 5% Lidocaine Gel - Nurse 2 - General Ulcer CM Notes Start: 07/23/18 13:57 Freq: Status: Active Protocol: Activity Type Activity Date Activity User E-Sign Co-Sign Detail Recorded Client Recorded Date Recorded By Document 08/06/18 14:16 DV [id number] 08/06/18 14:21 DV 08/06/18 14:16 Wound Center Nurse 2 [Procedure/Treatment] -Time 14:16 -Correct Patient Yes -Correct Side, Site, Position Yes -Correct Procedure Yes -Procedure Performed Yes -Type of Procedure Debridement -Clinical Debridement Subcutaneous -Post Debridement Size (cm) - Length 1.5 -Post Debridement Size (cm) - Width 1.6 -Post Debridement Size (cm) - Depth 0.9 -Total Square Cm 2.40 -Wound/Ulcer Outcome Not Healed -Ulcer Cleansing Rinsed/ Irrigated with Saline -Foul Odor after Cleansing No -Bioengineered Tissue No -Bleeding Controlled with Pressure -Treatment Response Procedure Tolerated Well [See Physician Procedure note for Specifics] Pain Scale: 0-10 Numeric [Pain] -Is Patient Pain Free? Yes Neurological: Neuro grossly intact Psych/Mental Status: Normal Affect, Appropriate, Alert and oriented to time, place, person, mood and affect Debridement Note Post-Debridement Measurements/Treatment - Nurse 2 - General Ulcer CM Notes Start: 07/23/18 13:57 Freq: Status: Active Protocol: Activity Type Activity Date Activity User E-Sign Co-Sign Detail Recorded Client Recorded Date Recorded By Document 07/23/18 14:21 JS [id number] 07/23/18 14:23 JS Document 07/30/18 13:24 CS [id number] 07/30/18 13:25 CS Document 08/06/18 14:16 DV [id number] 08/06/18 14:21 DV 07/23/18 07/30/18 08/06/18 14:21 13:24 14:16 Wound Center Nurse 2 #2 Coccyx -Time 14:21 13:24 14:16 -Correct Patient Yes Yes Yes -Correct Side, Site, Position Yes Yes Yes -Correct Procedure Yes Yes Yes -Procedure Performed Yes Yes Yes -Type of Procedure Debridement Debridement Debridement -Clinical Debridement Subcutaneous Subcutaneous Subcutaneous -Post Debridement Size (cm) - Length 1.5 1.6 1.5 -Post Debridement Size (cm) - Width 1.5 1.5 1.6 -Post Debridement Size (cm) - Depth 0.6 0.6 0.9 -Total Square Cm 2.25 2.40 2.40 -Wound/Ulcer Outcome Not Healed Not Healed Not Healed -Ulcer Cleansing Rinsed/ Not Cleansed Rinsed/ Irrigated with Irrigated with Saline Saline -Foul Odor after Cleansing No No No -Bioengineered Tissue No No No -Topical Lidocaine (%) 4 -Lidocaine (ml) 5 -Bleeding Controlled with NA NA Pressure -Treatment Response Procedure Procedure Procedure Tolerated Well Tolerated Well Tolerated Well Pain Scale: 0-10 Numeric Is Patient Pain Free? Yes Yes Yes Wound debrided: Stage III pressure ulcer coccyx Type of Debridement: Excisional debridement Anesthesia Used: 5% Lidocaine Gel Depth: in the subcutaneous layer Percentage of wound debrided: 100 Instrument Used: 5mm curette Tissue Removed: Slough and devitalized tissue Severity: Fat Layer Exposed Amount of bleeding with debridement: Mild Bleeding Controlled with: Pressure Patient tolerated procedure well Assessment/Plan Active Problems Stage III pressure ulcer (Acute) coccyx Excoriation of buttock (Acute) Immobility (Acute) Malnutrition (Acute) Assessment: See above diagnoses Plan: The patient was seen and examined at the wound center today and was updated on the plan of care. A subcutaneous debridement was performed today. The patient tolerated the procedure well. The patients wound care will consist of: snap vac application, with Promogran underneath. Did stress the importance of utilizing the Promogran if the vac comes off and to not leave the VAC in place if it is not suctioning. Discussed this to patient and daughter. Pt to continue with offloading interventions such as turning q2h in bed at night and offloading when sitting, however she is noncompliant with this. 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 Baseline bloodwork reviewed and prealbumin was very low, encouraged the use of high protien drinks and to drink at minimum 3-4 ensure drinks per day, however patient is noncompliant with this. Patient educated on the importance of diet on wound healing and instructed to increase protein and vitamin C intake. Patient verbalized understanding. Due to patient's limited mobility and stage III pressure ulcer, she would benefit from the use of a sliding board and the use of a gel cushion for her wheelchair. Orders for the supplies will be given. The patient has not had marked improvement with standard wound care and is unable to prove compliant with advanced skin substitutes, if snap VAC therapy fails may need to consider a palliative wound plan in the future. Patient will follow up at wound healing center in 1 weeks or sooner if needed. This note was generated with [email or web address] dictation software. It may contain incorrect words, spelling, and punctuation that were not noted in checking the note before signing. Code Visit 111xxx-113xx: [id number] Angie subq tissue 20 sq cm/<
--- NOTE | 2018-08-07 09:29 | PN.PCM_ITS ---
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 Current Visit: No Code(s): S88.912A - Complete traumatic amputation of left lower leg, level unspecified, initial encounter (4) Immobility Status: Acute Current Visit: Yes Code(s): Z74.09 - Other reduced mobility (5) Malnutrition Status: Acute Current Visit: Yes Qualifiers: Malnutrition type: protein-calorie malnutrition Protein-calorie malnutrition severity: moderate Qualified Code(s): E44.0 - Moderate protein- calorie malnutrition Code(s): E46 - Unspecified protein-calorie malnutrition (6) Hypertension Status: Chronic Current Visit: No Code(s): I10 - Essential (primary) hypertension (7) Osteoporosis Status: Chronic Current Visit: No Code(s): M81.0 - Age-related osteoporosis without current pathological fracture Type of Wound Date of Service: 08/06/18 Chief Complaint: stg 3 coccyx since November 2017 History of Wound: Patient presents today to the wound healing center for evaluation and treatment of a stage III pressure wound to her coccyx. She has a past medical history of left gjcjs-nwj-wjwk amputee, DVT, PE with long-term Coumadin anticoagulation, anemia, RA and OA. Patient and family believe the wound started around November 2017 due to pressure and constantly sitting in her chair. Her wound has been noted on multiple hospital admissions in the past. Cultures were previously done in January and demonstrated staph, Klebsiella, and Proteus and patient completed Levaquin and ampicillin therapy. [facility]. She is currently residing at home with her . Due to her amputation, her mobility is severely limited and she spends most of her time sitting in either her wheelchair or her reclining chair at home. She does have a hospital bed that she just recently started sleeping at night. She does state that she has an excoriated buttocks as well due to having to scoot from her wheelchair to reclining chair and wheelchair to bed. Her wound care thus far has consisted of calmoseptine applied twice daily. Denies any heavy drainage, though does state that the ulcer bleeds at times. Denies any systemic signs of infection at this time. The patient otherwise denies any fever, chills, nausea, vomiting, shortness of breath, chest pain or pressure, palpitations, orthopnea, lower extremity edema, syncope or presyncopal episodes. She denies trying offloading mechanisms at home at this time and does not have a wheelchair cushion. Progress of Wound: Size worsened, apparently the VAC did not seal appropriately after using it for a day and was compromised and patient just left in place and did not remove, No increase in drainage or purulent exudate, if no marked improvement in the next couple weeks, pt would like to consider palliative wound care. - Physical Exam Vital Signs Temp Pulse Resp BP 98 F 84 16 141/62 H 08/06/18 13:49 08/06/18 13:49 08/06/18 13:49 08/06/18 13:49 General: Alert, Oriented x3, Cooperative, No apparent distress HEENT: Atraumatic, PERRLA Cardiovascular: Regular rate, Regular Rhythm Skin: Ulcer/ Wound - Stage III pressure ulcer present on coccyx with adherent slough, no foul smell or purulent drainage no erythema Wound Measurements and Assessment WC - Nurse 1 - General Ulcer Measurement Start: 07/23/18 13:57 Freq: Status: Active Protocol: Activity Type Activity Date Activity User E-Sign Co-Sign Detail Recorded Client Recorded Date Recorded By Document 08/06/18 13:49 [facility] [id number] 08/06/18 13:59 [facility] 08/06/18 13:49 Wound Center Nurse 1 [Ulcer Assessment] #2 Coccyx -Combined with other wound No -Current Size (cm) - Length 1.3 -Current Size (cm) - Width 1.4 -Current Size (cm) - Depth 0.2 -Total Square Cm 1.82 -Date of Last Picture (Recall this 08/06/18 field) -Photo Taken Yes -Epithelialization None Present -Tunneling No -Undermining/Tunneling No -Circular Undermining No -Exudate Amt Large (67-100%) -Exudate Type Serosanguineous -Wound Margin Distinct, Outline Attached -Granulation Amt Small (1-33%) -Granulation Quality Red -Slough/Fibrin Yes -Necrosis Amt Large (67-100%) -Necrotic Tissue Type Adherent Slough -Texture (Alexus-wound Skin Appearance) Scarring -Moisture (Alexus-wound Skin Appearance Assessed ) -Color (Alexus-wound Skin Appearance) Erythema -Temperature (Alexus-wound Skin No Abnormality Appearance) (Pt Warm) -Tenderness on Palpation (Alexus-wound Yes Skin Appearance) -Ulcer Cleansing Wound Cleanser -Foul Odor after Cleansing No -Anesthetic Used 5% Lidocaine Gel - Nurse 2 - General Ulcer CM Notes Start: 07/23/18 13:57 Freq: Status: Active Protocol: Activity Type Activity Date Activity User E-Sign Co-Sign Detail Recorded Client Recorded Date Recorded By Document 08/06/18 14:16 DV [id number] 08/06/18 14:21 DV 08/06/18 14:16 Wound Center Nurse 2 [Procedure/Treatment] -Time 14:16 -Correct Patient Yes -Correct Side, Site, Position Yes -Correct Procedure Yes -Procedure Performed Yes -Type of Procedure Debridement -Clinical Debridement Subcutaneous -Post Debridement Size (cm) - Length 1.5 -Post Debridement Size (cm) - Width 1.6 -Post Debridement Size (cm) - Depth 0.9 -Total Square Cm 2.40 -Wound/Ulcer Outcome Not Healed -Ulcer Cleansing Rinsed/ Irrigated with Saline -Foul Odor after Cleansing No -Bioengineered Tissue No -Bleeding Controlled with Pressure -Treatment Response Procedure Tolerated Well [See Physician Procedure note for Specifics] Pain Scale: 0-10 Numeric [Pain] -Is Patient Pain Free? Yes Neurological: Neuro grossly intact Psych/Mental Status: Normal Affect, Appropriate, Alert and oriented to time, place, person, mood and affect Debridement Note Post-Debridement Measurements/Treatment - Nurse 2 - General Ulcer CM Notes Start: 07/23/18 13:57 Freq: Status: Active Protocol: Activity Type Activity Date Activity User E-Sign Co-Sign Detail Recorded Client Recorded Date Recorded By Document 07/23/18 14:21 JS [id number] 07/23/18 14:23 JS Document 07/30/18 13:24 CS [id number] 07/30/18 13:25 CS Document 08/06/18 14:16 DV [id number] 08/06/18 14:21 DV 07/23/18 07/30/18 08/06/18 14:21 13:24 14:16 Wound Center Nurse 2 #2 Coccyx -Time 14:21 13:24 14:16 -Correct Patient Yes Yes Yes -Correct Side, Site, Position Yes Yes Yes -Correct Procedure Yes Yes Yes -Procedure Performed Yes Yes Yes -Type of Procedure Debridement Debridement Debridement -Clinical Debridement Subcutaneous Subcutaneous Subcutaneous -Post Debridement Size (cm) - Length 1.5 1.6 1.5 -Post Debridement Size (cm) - Width 1.5 1.5 1.6 -Post Debridement Size (cm) - Depth 0.6 0.6 0.9 -Total Square Cm 2.25 2.40 2.40 -Wound/Ulcer Outcome Not Healed Not Healed Not Healed -Ulcer Cleansing Rinsed/ Not Cleansed Rinsed/ Irrigated with Irrigated with Saline Saline -Foul Odor after Cleansing No No No -Bioengineered Tissue No No No -Topical Lidocaine (%) 4 -Lidocaine (ml) 5 -Bleeding Controlled with NA NA Pressure -Treatment Response Procedure Procedure Procedure Tolerated Well Tolerated Well Tolerated Well Pain Scale: 0-10 Numeric Is Patient Pain Free? Yes Yes Yes Wound debrided: Stage III pressure ulcer coccyx Type of Debridement: Excisional debridement Anesthesia Used: 5% Lidocaine Gel Depth: in the subcutaneous layer Percentage of wound debrided: 100 Instrument Used: 5mm curette Tissue Removed: Slough and devitalized tissue Severity: Fat Layer Exposed Amount of bleeding with debridement: Mild Bleeding Controlled with: Pressure Patient tolerated procedure well Assessment/Plan Active Problems Stage III pressure ulcer (Acute) coccyx Excoriation of buttock (Acute) Immobility (Acute) Malnutrition (Acute) Assessment: See above diagnoses Plan: The patient was seen and examined at the wound center today and was updated on the plan of care. A subcutaneous debridement was performed today. The patient tolerated the procedure well. The patients wound care will consist of: snap vac application, with Promogran underneath. Did stress the importance of utilizing the Promogran if the vac comes off and to not leave the VAC in place if it is not suctioning. Discussed this to patient and daughter. Pt to continue with offloading interventions such as turning q2h in bed at night and offloading when sitting, however she is noncompliant with this. 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 Baseline bloodwork reviewed and prealbumin was very low, encouraged the use of high protien drinks and to drink at minimum 3-4 ensure drinks per day, however patient is noncompliant with this. Patient educated on the importance of diet on wound healing and instructed to increase protein and vitamin C intake. Patient verbalized understanding. Due to patient's limited mobility and stage III pressure ulcer, she would benefit from the use of a sliding board and the use of a gel cushion for her wheelchair. Orders for the supplies will be given. The patient has not had marked improvement with standard wound care and is unable to prove compliant with advanced skin substitutes, if snap VAC therapy fails may need to consider a palliative wound plan in the future. Patient will follow up at wound healing center in 1 weeks or sooner if needed. This note was generated with [employer] dictation software. It may contain incorrect words, spelling, and punctuation that were not noted in checking the note before signing. Code Visit 111xxx-113xx: [id number] Angie subq tissue 20 sq cm/<
[2018-08-10 13:49] VITALS: BP 127/67; PULSE 93; RESP 16; TEMP 35.9
[2018-08-13 13:03] VITALS: BP 121/60; PULSE 83; RESP 18; TEMP 36.6
--- NOTE | 2018-08-13 15:47 | PCM.WC.PN ---
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 Current Visit: No Code(s): S88.912A - Complete traumatic amputation of left lower leg, level unspecified, initial encounter (4) Immobility Status: Acute Current Visit: Yes Code(s): Z74.09 - Other reduced mobility (5) Malnutrition Status: Acute Current Visit: Yes Qualifiers: Malnutrition type: protein-calorie malnutrition Protein-calorie malnutrition severity: moderate Qualified Code(s): E44.0 - Moderate protein-calorie malnutrition Code(s): E46 - Unspecified protein-calorie malnutrition (6) Hypertension Status: Chronic Current Visit: No Code(s): I10 - Essential (primary) hypertension (7) Osteoporosis Status: Chronic Current Visit: No Code(s): M81.0 - Age-related osteoporosis without current pathological fracture Type of Wound Date of Service: 08/13/18 Chief Complaint: stg 3 coccyx since November 2017 History of Wound: Patient presents today to the wound healing center for evaluation and treatment of a stage III pressure wound to her coccyx. She has a past medical history of left niozh-fgm-auya amputee, DVT, PE with long-term Coumadin anticoagulation, anemia, RA and OA. Patient and family believe the wound started around November 2017 due to pressure and constantly sitting in her chair. Her wound has been noted on multiple hospital admissions in the past. Cultures were previously done in January and demonstrated staph, Klebsiella, and Proteus and patient completed Levaquin and ampicillin therapy. The patient has also been in and out of the [facility]. She is currently residing at home with her . Due to her amputation, her mobility is severely limited and she spends most of her time sitting in either her wheelchair or her reclining chair at home. She does have a hospital bed that she just recently started sleeping at night. She does state that she has an excoriated buttocks as well due to having to scoot from her wheelchair to reclining chair and wheelchair to bed. Her wound care thus far has consisted of calmoseptine applied twice daily. Denies any heavy drainage, though does state that the ulcer bleeds at times. Denies any systemic signs of infection at this time. The patient otherwise denies any fever, chills, nausea, vomiting, shortness of breath, chest pain or pressure, palpitations, orthopnea, lower extremity edema, syncope or presyncopal episodes. She denies trying offloading mechanisms at home at this time and does not have a wheelchair cushion. Progress of Wound: Size stable, unable to keep VAC in place , No increase in drainage or purulent exudate, pt and daughter would like to consider palliative wound care. - Physical Exam Vital Signs Temp Pulse Resp BP 97.8 F 83 18 121/60 H 08/13/18 13:03 08/13/18 13:03 08/13/18 13:03 08/13/18 13:03 General: Alert, Oriented x3, Cooperative, No apparent distress, - - malnurished HEENT: Atraumatic Cardiovascular: Regular rate Skin: Ulcer/ Wound - stage 3 pressure ulcer coccyx with adherant slough to wound bed, no signs of infection at this time. Wound Measurements and Assessment WC - Nurse 1 - General Ulcer Measurement Start: 07/23/18 13:57 Freq: Status: Active Protocol: Activity Type Activity Date Activity User E-Sign Co-Sign Detail Recorded Client Recorded Date Recorded By Document 08/13/18 13:03 ND [id number] 08/13/18 13:17 ND 08/13/18 13:03 Wound Center Nurse 1 [Ulcer Assessment] #2 Coccyx -Combined with other wound No -Current Size (cm) - Length 1.8 -Current Size (cm) - Width 1.7 -Current Size (cm) - Depth 0.3 -Total Square Cm 3.06 -Photo Taken No -Epithelialization Small 1-33% -Tunneling No -Undermining/Tunneling No -Circular Undermining No -Exudate Amt Medium (34-66%) -Exudate Type Serous -Wound Margin Thickened -Granulation Amt Medium (34-66%) -Granulation Quality Pale [place] -Necrosis Amt Medium (34-66%) -Necrotic Tissue Type Adherent Slough -Texture (Alexus-wound Skin Appearance) Assessed -Moisture (Alexus-wound Skin Appearance Assessed ) -Color (Alexus-wound Skin Appearance) Assessed -Temperature (Alexus-wound Skin No Abnormality Appearance) (Pt Warm) -Tenderness on Palpation (Alexus-wound Yes Skin Appearance) -Ulcer Cleansing Wound Cleanser -Foul Odor after Cleansing Yes -Anesthetic Used 4% Lidocaine Solution - Nurse 2 - General Ulcer CM Notes Start: 07/23/18 13:57 Freq: Status: Active Protocol: Activity Type Activity Date Activity User E-Sign Co-Sign Detail Recorded Client Recorded Date Recorded By Document 08/13/18 13:26 [id number] 08/13/18 13:46 08/13/18 13:26 Wound Center Nurse 2 [Procedure/Treatment] -Time 13:45 -Correct Patient Yes -Correct Side, Site, Position Yes -Correct Procedure Yes -Procedure Performed Yes -Type of Procedure Debridement -Clinical Debridement Subcutaneous -Post Debridement Size (cm) - Length 1.7 -Post Debridement Size (cm) - Width 1.6 -Post Debridement Size (cm) - Depth 0.5 -Total Square Cm 2.72 -Wound/Ulcer Outcome Not Healed -Ulcer Cleansing Rinsed/ Irrigated with Saline -Foul Odor after Cleansing No -Bioengineered Tissue No -Topical Lidocaine (%) 4 -Bleeding Controlled with NA -Treatment Response Procedure Tolerated Well [See Physician Procedure note for Specifics] Pain Scale: 0-10 Numeric [Pain] -Is Patient Pain Free? Yes Neurological: Neuro grossly intact Psych/Mental Status: Normal Affect, Appropriate, Alert and oriented to time, place, person, mood and affect Debridement Note Post-Debridement Measurements/Treatment - Nurse 2 - General Ulcer CM Notes Start: 07/23/18 13:57 Freq: Status: Active Protocol: Activity Type Activity Date Activity User E-Sign Co-Sign Detail Recorded Client Recorded Date Recorded By Document 07/23/18 14:21 JS [id number] 07/23/18 14:23 JS Document 07/30/18 13:24 [id number] 07/30/18 13:25 CS Document 08/06/18 14:16 DV [id number] 08/06/18 14:21 DV Document 08/13/18 13:26 JS [id number] 08/13/18 13:46 07/23/18 07/30/18 08/06/18 14:21 13:24 14:16 Wound Center Nurse 2 #2 Coccyx -Time 14:21 13:24 14:16 -Correct Patient Yes Yes Yes -Correct Side, Site, Position Yes Yes Yes -Correct Procedure Yes Yes Yes -Procedure Performed Yes Yes Yes -Type of Procedure Debridement Debridement Debridement -Clinical Debridement Subcutaneous Subcutaneous Subcutaneous -Post Debridement Size (cm) - Length 1.5 1.6 1.5 -Post Debridement Size (cm) - Width 1.5 1.5 1.6 -Post Debridement Size (cm) - Depth 0.6 0.6 0.9 -Total Square Cm 2.25 2.40 2.40 -Wound/Ulcer Outcome Not Healed Not Healed Not Healed -Ulcer Cleansing Rinsed/ Not Cleansed Rinsed/ Irrigated with Irrigated with Saline Saline -Foul Odor after Cleansing No No No -Bioengineered Tissue No No No -Topical Lidocaine (%) 4 -Lidocaine (ml) 5 -Bleeding Controlled with NA NA Pressure -Treatment Response Procedure Procedure Procedure Tolerated Well Tolerated Well Tolerated Well Pain Scale: 0-10 Numeric Is Patient Pain Free? Yes Yes Yes 08/13/18 13:26 Wound Center Nurse 2 #2 Coccyx -Time 13:45 -Correct Patient Yes -Correct Side, Site, Position Yes -Correct Procedure Yes -Procedure Performed Yes -Type of Procedure Debridement -Clinical Debridement Subcutaneous -Post Debridement Size (cm) - Length 1.7 -Post Debridement Size (cm) - Width 1.6 -Post Debridement Size (cm) - Depth 0.5 -Total Square Cm 2.72 -Wound/Ulcer Outcome Not Healed -Ulcer Cleansing Rinsed/ Irrigated with Saline -Foul Odor after Cleansing No -Bioengineered Tissue No -Topical Lidocaine (%) 4 -Lidocaine (ml) -Bleeding Controlled with NA -Treatment Response Procedure Tolerated Well Pain Scale: 0-10 Numeric Is Patient Pain Free? Yes Wound debrided: Stage 3 coccyx ulcer Type of Debridement: Excisional debridement Anesthesia Used: 5% Lidocaine Gel Depth: in the subcutaneous layer Percentage of wound debrided: 100 Instrument Used: 5mm curette Tissue Removed: slough and devitalized tissue Severity: Fat Layer Exposed Amount of bleeding with debridement: Mild Bleeding Controlled with: Pressure Patient tolerated procedure well Assessment/Plan Active Problems Stage III pressure ulcer (Acute) coccyx Excoriation of buttock (Acute) Immobility (Acute) Malnutrition (Acute) Assessment: See above diagnoses Plan: The patient was seen and examined at the wound center today and was updated on the plan of care. A subcutaneous debridement was performed today. The patient tolerated the procedure well. The patients wound care will consist of: isaac daily.Patient and daughter agree to be placed on a palliative wound plan given the multiple wound care failures and patients multiple comorbidities that interfere with wound healing. Discussed this to patient and daughter. Pt to continue with offloading interventions such as turning q2h in bed at night and offloading when sitting, however she is noncompliant with this. 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 Daughter is requesting a repeat culture, culture collected. Baseline bloodwork reviewed and prealbumin was very low, encouraged the use of high protien drinks and to drink at minimum 3-4 ensure drinks per day, however patient is noncompliant with this. Patient educated on the importance of diet on wound healing and instructed to increase protein and vitamin C intake. Patient verbalized understanding. Due to patient's limited mobility and stage III pressure ulcer, she would benefit from the use of a sliding board and the use of a gel cushion for her wheelchair. Orders for the supplies were given. Patient will follow up at wound healing center in 4 weeks or sooner if needed. This note was generated with [employer] dictation software. It may contain incorrect words, spelling, and punctuation that were not noted in checking the note before signing. Code Visit 111xxx-113xx: 51091 Angie subq tissue 20 sq cm/<
--- NOTE | 2018-08-14 14:58 | PN.PCM_ITS ---
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 Current Visit: No Code(s): S88.912A - Complete traumatic amputation of left lower leg, level unspecified, initial encounter (4) Immobility Status: Acute Current Visit: Yes Code(s): Z74.09 - Other reduced mobility (5) Malnutrition Status: Acute Current Visit: Yes Qualifiers: Malnutrition type: protein-calorie malnutrition Protein-calorie malnutrition severity: moderate Qualified Code(s): E44.0 - Moderate protein- calorie malnutrition Code(s): E46 - Unspecified protein-calorie malnutrition (6) Hypertension Status: Chronic Current Visit: No Code(s): I10 - Essential (primary) hypertension (7) Osteoporosis Status: Chronic Current Visit: No Code(s): M81.0 - Age-related osteoporosis without current pathological fracture Type of Wound Date of Service: 08/13/18 Chief Complaint: stg 3 coccyx since November 2017 History of Wound: Patient presents today to the wound healing center for evaluation and treatment of a stage III pressure wound to her coccyx. She has a past medical history of left [id number] amputee, DVT, PE with long-term Coumadin anticoagulation, anemia, RA and OA. Patient and family believe the wound started around November 2017 due to pressure and constantly sitting in her chair. Her wound has been noted on multiple hospital admissions in the past. Cultures were previously done in January and demonstrated staph, Klebsiella, and Proteus and patient completed Levaquin and ampicillin therapy. The patient has also been in and out of the long term. She is currently residing at home with her . Due to her amputation, her mobility is severely limited and she spends most of her time sitting in either her wheelchair or her reclining chair at home. She does have a hospital bed that she just recently started sleeping at night. She does state that she has an excoriated buttocks as well due to having to scoot from her wheelchair to reclining chair and wheelchair to bed. Her wound care thus far has consisted of calmoseptine applied twice daily. Denies any heavy drainage, though does state that the ulcer bleeds at times. Denies any systemic signs of infection at this time. The patient otherwise denies any fever, chills, nausea, vomiting, shortness of breath, chest pain or pressure, palpitations, orthopnea, lower extremity edema, syncope or presyncopal episodes. She denies trying offloading mechanisms at home at this time and does not have a wheelchair cushion. Progress of Wound: Size stable, unable to keep VAC in place , No increase in drainage or purulent exudate, pt and daughter would like to consider palliative wound care. - Physical Exam Vital Signs Temp Pulse Resp BP 97.8 F 83 18 121/60 H 08/13/18 13:03 08/13/18 13:03 08/13/18 13:03 08/13/18 13:03 General: Alert, Oriented x3, Cooperative, No apparent distress, - - malnurished HEENT: Atraumatic Cardiovascular: Regular rate Skin: Ulcer/ Wound - stage 3 pressure ulcer coccyx with adherant slough to wound bed, no signs of infection at this time. Wound Measurements and Assessment WC - Nurse 1 - General Ulcer Measurement Start: 07/23/18 13:57 Freq: Status: Active Protocol: Activity Type Activity Date Activity User E-Sign Co-Sign Detail Recorded Client Recorded Date Recorded By Document 08/13/18 13:03 [place] [id number] 08/13/18 13:17 [place] 08/13/18 13:03 Wound Center Nurse 1 [Ulcer Assessment] #2 Coccyx -Combined with other wound No -Current Size (cm) - Length 1.8 -Current Size (cm) - Width 1.7 -Current Size (cm) - Depth 0.3 -Total Square Cm 3.06 -Photo Taken No -Epithelialization Small 1-33% -Tunneling No -Undermining/Tunneling No -Circular Undermining No -Exudate Amt Medium (34-66%) -Exudate Type Serous -Wound Margin Thickened -Granulation Amt Medium (34-66%) -Granulation Quality Pale [place] -Necrosis Amt Medium (34-66%) -Necrotic Tissue Type Adherent Slough -Texture (Alexus-wound Skin Appearance) Assessed -Moisture (Alexus-wound Skin Appearance Assessed ) -Color (Alexus-wound Skin Appearance) Assessed -Temperature (Alexus-wound Skin No Abnormality Appearance) (Pt Warm) -Tenderness on Palpation (Alexus-wound Yes Skin Appearance) -Ulcer Cleansing Wound Cleanser -Foul Odor after Cleansing Yes -Anesthetic Used 4% Lidocaine Solution - Nurse 2 - General Ulcer CM Notes Start: 07/23/18 13:57 Freq: Status: Active Protocol: Activity Type Activity Date Activity User E-Sign Co-Sign Detail Recorded Client Recorded Date Recorded By Document 08/13/18 13:26 [id number] 08/13/18 13:46 08/13/18 13:26 Wound Center Nurse 2 [Procedure/Treatment] -Time 13:45 -Correct Patient Yes -Correct Side, Site, Position Yes -Correct Procedure Yes -Procedure Performed Yes -Type of Procedure Debridement -Clinical Debridement Subcutaneous -Post Debridement Size (cm) - Length 1.7 -Post Debridement Size (cm) - Width 1.6 -Post Debridement Size (cm) - Depth 0.5 -Total Square Cm 2.72 -Wound/Ulcer Outcome Not Healed -Ulcer Cleansing Rinsed/ Irrigated with Saline -Foul Odor after Cleansing No -Bioengineered Tissue No -Topical Lidocaine (%) 4 -Bleeding Controlled with NA -Treatment Response Procedure Tolerated Well [See Physician Procedure note for Specifics] Pain Scale: 0-10 Numeric [Pain] -Is Patient Pain Free? Yes Neurological: Neuro grossly intact Psych/Mental Status: Normal Affect, Appropriate, Alert and oriented to time, place, person, mood and affect Debridement Note Post-Debridement Measurements/Treatment - Nurse 2 - General Ulcer CM Notes Start: 07/23/18 13:57 Freq: Status: Active Protocol: Activity Type Activity Date Activity User E-Sign Co-Sign Detail Recorded Client Recorded Date Recorded By Document 07/23/18 14:21 JS [id number] 07/23/18 14:23 JS Document 07/30/18 13:24 [id number] 07/30/18 13:25 CS Document 08/06/18 14:16 DV [id number] 08/06/18 14:21 DV Document 08/13/18 13:26 JS [email or web address] 08/13/18 13:46 07/23/18 07/30/18 08/06/18 14:21 13:24 14:16 Wound Center Nurse 2 #2 Coccyx -Time 14:21 13:24 14:16 -Correct Patient Yes Yes Yes -Correct Side, Site, Position Yes Yes Yes -Correct Procedure Yes Yes Yes -Procedure Performed Yes Yes Yes -Type of Procedure Debridement Debridement Debridement -Clinical Debridement Subcutaneous Subcutaneous Subcutaneous -Post Debridement Size (cm) - Length 1.5 1.6 1.5 -Post Debridement Size (cm) - Width 1.5 1.5 1.6 -Post Debridement Size (cm) - Depth 0.6 0.6 0.9 -Total Square Cm 2.25 2.40 2.40 -Wound/Ulcer Outcome Not Healed Not Healed Not Healed -Ulcer Cleansing Rinsed/ Not Cleansed Rinsed/ Irrigated with Irrigated with Saline Saline -Foul Odor after Cleansing No No No -Bioengineered Tissue No No No -Topical Lidocaine (%) 4 -Lidocaine (ml) 5 -Bleeding Controlled with NA NA Pressure -Treatment Response Procedure Procedure Procedure Tolerated Well Tolerated Well Tolerated Well Pain Scale: 0-10 Numeric Is Patient Pain Free? Yes Yes Yes 08/13/18 13:26 Wound Center Nurse 2 #2 Coccyx -Time 13:45 -Correct Patient Yes -Correct Side, Site, Position Yes -Correct Procedure Yes -Procedure Performed Yes -Type of Procedure Debridement -Clinical Debridement Subcutaneous -Post Debridement Size (cm) - Length 1.7 -Post Debridement Size (cm) - Width 1.6 -Post Debridement Size (cm) - Depth 0.5 -Total Square Cm 2.72 -Wound/Ulcer Outcome Not Healed -Ulcer Cleansing Rinsed/ Irrigated with Saline -Foul Odor after Cleansing No -Bioengineered Tissue No -Topical Lidocaine (%) 4 -Lidocaine (ml) -Bleeding Controlled with NA -Treatment Response Procedure Tolerated Well Pain Scale: 0-10 Numeric Is Patient Pain Free? Yes Wound debrided: Stage 3 coccyx ulcer Type of Debridement: Excisional debridement Anesthesia Used: 5% Lidocaine Gel Depth: in the subcutaneous layer Percentage of wound debrided: 100 Instrument Used: 5mm curette Tissue Removed: slough and devitalized tissue Severity: Fat Layer Exposed Amount of bleeding with debridement: Mild Bleeding Controlled with: Pressure Patient tolerated procedure well Assessment/Plan Active Problems Stage III pressure ulcer (Acute) coccyx Excoriation of buttock (Acute) Immobility (Acute) Malnutrition (Acute) Assessment: See above diagnoses Plan: The patient was seen and examined at the wound center today and was updated on the plan of care. A subcutaneous debridement was performed today. The patient tolerated the procedure well. The patients wound care will consist of: isaac daily.Patient and daughter agree to be placed on a palliative wound plan given the multiple wound care failures and patients multiple comorbidities that interfere with wound healing. Discussed this to patient and daughter. Pt to continue with offloading interventions such as turning q2h in bed at night and offloading when sitting, however she is noncompliant with this. 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 Daughter is requesting a repeat culture, culture collected. Baseline bloodwork reviewed and prealbumin was very low, encouraged the use of high protien drinks and to drink at minimum 3-4 ensure drinks per day, however patient is noncompliant with this. Patient educated on the importance of diet on wound healing and instructed to increase protein and vitamin C intake. Patient verbalized understanding. Due to patient's limited mobility and stage III pressure ulcer, she would benefit from the use of a sliding board and the use of a gel cushion for her wheelchair. Orders for the supplies were given. Patient will follow up at wound healing center in 4 weeks or sooner if needed. This note was generated with [employer] dictation software. It may contain incorrect words, spelling, and punctuation that were not noted in checking the note before signing. Code Visit 111xxx-113xx: [id number] Angie subq tissue 20 sq cm/<
== END 2018-08-16 23:59 ==
LOC: WC 13:00
PROVIDERS: Family Provider Family Medicine; PCP Family Medicine; Visit Provider Nurse Practitioner Family
DX: L89.153 Pressure ulcer of sacral region, stage 3 (principal); I10 Essential (primary) hypertension; M06.9 Rheumatoid arthritis, unspecified; M19.90 Unspecified osteoarthritis, unspecified site; Z86.718 Personal history of other venous thrombosis and embolism; Z86.711 Personal history of pulmonary embolism; Z79.01 Long term (current) use of anticoagulants; Z89.612 Acquired absence of left leg above knee
CPT/HCPCS: 11042; 87070; 87075; 87205; 97607; 97608; 99212; G0463

== ENCOUNTER 2018-09-10 08:37 | Outpatient (RCR) | payer MEDICARE, OTHER, SELFPAY ==
[2018-08-17 00:55] VITALS: BP 121/60; PULSE 83; RESP 18; TEMP 36.6
[2018-09-10 12:59] VITALS: BP 106/56; PULSE 75; RESP 16; TEMP 35.4
--- NOTE | 2018-09-10 17:23 | PCM.WC.PN ---
(1) Stage III pressure ulcer Status: Acute Current Visit: No Code(s): L89.93 - Pressure ulcer of unspecified site, stage 3 Comment: coccyx (2) Immobility Status: Acute Current Visit: No Code(s): Z74.09 - Other reduced mobility (3) Malnutrition Status: Acute Current Visit: No Qualifiers: Code(s): E46 - Unspecified protein-calorie malnutrition (4) Amputation of left lower extremity Status: Chronic Current Visit: No Code(s): S88.912A - Complete traumatic amputation of left lower leg, level unspecified, initial encounter (5) Hypertension Status: Chronic Current Visit: No Code(s): I10 - Essential (primary) hypertension (6) Osteoarthritis of hips, bilateral Status: Chronic Current Visit: No Code(s): M16.0 - Bilateral primary osteoarthritis of hip Type of Wound Date of Service: 09/10/18 Chief Complaint: stg 3 coccyx since November 2017 History of Wound: Patient presents today to the wound healing center for evaluation and treatment of a stage III pressure wound to her coccyx. She has a past medical history of left hlcwe-fkw-bmca amputee, DVT, PE with long-term Coumadin anticoagulation, anemia, RA and OA. Patient and family believe the wound started around November 2017 due to pressure and constantly sitting in her chair. Her wound has been noted on multiple hospital admissions in the past. Cultures were previously done in January and demonstrated staph, Klebsiella, and Proteus and patient completed Levaquin and ampicillin therapy. The patient has also been in and out of the jail. She is currently residing at home with her . Due to her amputation, her mobility is severely limited and she spends most of her time sitting in either her wheelchair or her reclining chair at home. She does have a hospital bed that she just recently started sleeping at night. She does state that she has an excoriated buttocks as well due to having to scoot from her wheelchair to reclining chair and wheelchair to bed. Her wound care thus far has consisted of calmoseptine applied twice daily. Denies any heavy drainage, though does state that the ulcer bleeds at times. Denies any systemic signs of infection at this time. The patient otherwise denies any fever, chills, nausea, vomiting, shortness of breath, chest pain or pressure, palpitations, orthopnea, lower extremity edema, syncope or presyncopal episodes. She denies trying offloading mechanisms at home at this time and does not have a wheelchair cushion. Progress of Wound: Size stable, moderate amounbt of slough present, no signs of infection, patient doing well with palliative wound care. - Physical Exam Vital Signs Temp Pulse Resp BP 95.7 F L 75 16 106/56 L 09/10/18 12:59 09/10/18 12:59 09/10/18 12:59 09/10/18 12:59 General: Alert, Oriented x3, Cooperative, No apparent distress HEENT: Atraumatic, PERRLA Cardiovascular: Regular rate Extremities: No clubbing, No cyanosis Skin: Ulcer/ Wound - coccyx stage 3 pressure ulcer with adherant slough, no malodor or signs of infection at this time Wound Measurements and Assessment WC - Nurse 1 - General Ulcer Measurement Start: 09/10/18 12:59 Freq: Status: Active Protocol: Activity Type Activity Date Activity User E-Sign Co-Sign Detail Recorded Client Recorded Date Recorded By Document 09/10/18 12:59 [facility] [id number] 09/10/18 13:03 [facility] 09/10/18 12:59 Wound Center Nurse 1 [Ulcer Assessment] #2 Coccyx -Combined with other wound No -Current Size (cm) - Length 1.5 -Current Size (cm) - Width 1 -Current Size (cm) - Depth 0.3 -Total Square Cm 1.5 -Date of Last Picture (Recall this 09/10/18 field) -Photo Taken Yes -Epithelialization None Present -Tunneling No -Undermining/Tunneling No -Circular Undermining No -Exudate Amt None Present (0 %) -Wound Margin Distinct, Outline Attached -Granulation Amt Large (67-100%) -Granulation Quality Red -Slough/Fibrin No -Necrosis Amt None Present (0 %) -Texture (Alexus-wound Skin Appearance) Scarring -Moisture (Alexus-wound Skin Appearance Maceration ) -Color (Alexus-wound Skin Appearance) Palor -Temperature (Alexus-wound Skin No Abnormality Appearance) (Pt Warm) -Tenderness on Palpation (Alexus-wound No Skin Appearance) -Ulcer Cleansing Rinsed/ Irrigated with Saline -Foul Odor after Cleansing No -Anesthetic Used 4% Lidocaine Solution WC - Nurse 2 - General Ulcer CM Notes Start: 09/10/18 12:59 Freq: Status: Active Protocol: Activity Type Activity Date Activity User E-Sign Co-Sign Detail Recorded Client Recorded Date Recorded By Document 09/10/18 13:31 DV [id number] 09/10/18 13:32 DV 09/10/18 13:31 Wound Center Nurse 2 [Procedure/Treatment] -Time 13:32 -Correct Patient Yes -Correct Side, Site, Position Yes -Correct Procedure Yes -Procedure Performed Yes -Type of Procedure Debridement -Clinical Debridement Subcutaneous -Post Debridement Size (cm) - Length 1.5 -Post Debridement Size (cm) - Width 1.2 -Post Debridement Size (cm) - Depth 0.3 -Total Square Cm 1.80 -Wound/Ulcer Outcome Not Healed -Ulcer Cleansing Rinsed/ Irrigated with Saline -Foul Odor after Cleansing No -Bioengineered Tissue No -Bleeding Controlled with Pressure -Treatment Response Procedure Tolerated Well [See Physician Procedure note for Specifics] Pain Scale: 0-10 Numeric [Pain] -Is Patient Pain Free? Yes Musculoskeletal: Cachexia Neurological: Neuro grossly intact, - - nonambulatory Psych/Mental Status: Normal Affect, Appropriate, Alert and oriented to time, place, person, mood and affect Debridement Note Post-Debridement Measurements/Treatment WC - Nurse 2 - General Ulcer CM Notes Start: 09/10/18 12:59 Freq: Status: Active Protocol: Activity Type Activity Date Activity User E-Sign Co-Sign Detail Recorded Client Recorded Date Recorded By Document 09/10/18 13:31 DV [id number] 09/10/18 13:32 DV 09/10/18 13:31 Wound Center Nurse 2 #2 Coccyx -Time 13:32 -Correct Patient Yes -Correct Side, Site, Position Yes -Correct Procedure Yes -Procedure Performed Yes -Type of Procedure Debridement -Clinical Debridement Subcutaneous -Post Debridement Size (cm) - Length 1.5 -Post Debridement Size (cm) - Width 1.2 -Post Debridement Size (cm) - Depth 0.3 -Total Square Cm 1.80 -Wound/Ulcer Outcome Not Healed -Ulcer Cleansing Rinsed/ Irrigated with Saline -Foul Odor after Cleansing No -Bioengineered Tissue No -Bleeding Controlled with Pressure -Treatment Response Procedure Tolerated Well Pain Scale: 0-10 Numeric Is Patient Pain Free? Yes Wound debrided: stage 3 pressure ulcer coccyx Type of Debridement: Excisional debridement Anesthesia Used: 5% Lidocaine Gel Depth: in the subcutaneous layer Percentage of wound debrided: 100 Instrument Used: 5mm curette Tissue Removed: slough and devitalized tissue Severity: Fat Layer Exposed Amount of bleeding with debridement: Mild Bleeding Controlled with: Pressure Patient tolerated procedure well Assessment/Plan Assessment: See above diagnoses Plan: The patient was seen and examined at the wound center today and was updated on the plan of care. A subcutaneous debridement was performed today. The patient tolerated the procedure well. The patients wound care will consist of: isaac daily.Patient and daughter agree to continue on a palliative wound plan given the multiple wound care failures and patients multiple comorbidities that interfere with wound healing. Discussed this to patient and daughter. Pt to continue with offloading interventions such as turning q2h in bed at night and offloading when sitting, however she is noncompliant with this. previous cultures collected were negative. Baseline bloodwork reviewed and prealbumin was very low, encouraged the use of high protien drinks and to drink at minimum 3-4 ensure drinks per day, however patient is noncompliant with this. Patient educated on the importance of diet on wound healing and instructed to increase protein and vitamin C intake. Patient verbalized understanding. Due to patient's limited mobility and stage III pressure ulcer, she would benefit from the use of a sliding board and the use of a gel cushion for her wheelchair. Orders for the supplies were given. Patient will follow up at wound healing center in 4 weeks or sooner if needed. This note was generated with [employer] dictation software. It may contain incorrect words, spelling, and punctuation that were not noted in checking the note before signing. Code Visit 111xxx-113xx: [id number] Angie subq tissue 20 sq cm/<
--- NOTE | 2018-09-11 14:28 | PN.PCM_ITS ---
(1) Stage III pressure ulcer Status: Acute Current Visit: No Code(s): L89.93 - Pressure ulcer of unspecified site, stage 3 Comment: coccyx (2) Immobility Status: Acute Current Visit: No Code(s): Z74.09 - Other reduced mobility (3) Malnutrition Status: Acute Current Visit: No Qualifiers: Code(s): E46 - Unspecified protein-calorie malnutrition (4) Amputation of left lower extremity Status: Chronic Current Visit: No Code(s): S88.912A - Complete traumatic amputation of left lower leg, level unspecified, initial encounter (5) Hypertension Status: Chronic Current Visit: No Code(s): I10 - Essential (primary) hypertension (6) Osteoarthritis of hips, bilateral Status: Chronic Current Visit: No Code(s): M16.0 - Bilateral primary osteoarthritis of hip Type of Wound Date of Service: 09/10/18 Chief Complaint: stg 3 coccyx since November 2017 History of Wound: Patient presents today to the wound healing center for evaluation and treatment of a stage III pressure wound to her coccyx. She has a past medical history of left [id number] amputee, DVT, PE with long-term Coumadin anticoagulation, anemia, RA and OA. Patient and family believe the wound started around November 2017 due to pressure and constantly sitting in her chair. Her wound has been noted on multiple hospital admissions in the past. Cultures were previously done in January and demonstrated staph, Klebsiella, and Proteus and patient completed Levaquin and ampicillin therapy. [facility]. She is currently residing at home with her . Due to her amputation, her mobility is severely limited and she spends most of her time sitting in either her wheelchair or her reclining chair at home. She does have a hospital bed that she just recently started sleeping at night. She does state that she has an excoriated buttocks as well due to having to scoot from her wheelchair to reclining chair and wheelchair to bed. Her wound care thus far has consisted of calmoseptine applied twice daily. Denies any heavy drainage, though does state that the ulcer bleeds at times. Denies any systemic signs of infection at this time. The patient otherwise denies any fever, chills, nausea, vomiting, shortness of breath, chest pain or pressure, palpitations, orthopnea, lower extremity edema, syncope or presyncopal episodes. She denies trying offloading mechanisms at home at this time and does not have a wheelchair cushion. Progress of Wound: Size stable, moderate amounbt of slough present, no signs of infection, patient doing well with palliative wound care. - Physical Exam Vital Signs Temp Pulse Resp BP 95.7 F L 75 16 106/56 L 09/10/18 12:59 09/10/18 12:59 09/10/18 12:59 09/10/18 12:59 General: Alert, Oriented x3, Cooperative, No apparent distress HEENT: Atraumatic, PERRLA Cardiovascular: Regular rate Extremities: No clubbing, No cyanosis Skin: Ulcer/ Wound - coccyx stage 3 pressure ulcer with adherant slough, no malodor or signs of infection at this time Wound Measurements and Assessment WC - Nurse 1 - General Ulcer Measurement Start: 09/10/18 12:59 Freq: Status: Active Protocol: Activity Type Activity Date Activity User E-Sign Co-Sign Detail Recorded Client Recorded Date Recorded By Document 09/10/18 12:59 [facility] [id number] 09/10/18 13:03 [facility] 09/10/18 12:59 Wound Center Nurse 1 [Ulcer Assessment] #2 Coccyx -Combined with other wound No -Current Size (cm) - Length 1.5 -Current Size (cm) - Width 1 -Current Size (cm) - Depth 0.3 -Total Square Cm 1.5 -Date of Last Picture (Recall this 09/10/18 field) -Photo Taken Yes -Epithelialization None Present -Tunneling No -Undermining/Tunneling No -Circular Undermining No -Exudate Amt None Present (0 %) -Wound Margin Distinct, Outline Attached -Granulation Amt Large (67-100%) -Granulation Quality Red -Slough/Fibrin No -Necrosis Amt None Present (0 %) -Texture (Alexus-wound Skin Appearance) Scarring -Moisture (Alexus-wound Skin Appearance Maceration ) -Color (Alexus-wound Skin Appearance) Palor -Temperature (Alexus-wound Skin No Abnormality Appearance) (Pt Warm) -Tenderness on Palpation (Alexus-wound No Skin Appearance) -Ulcer Cleansing Rinsed/ Irrigated with Saline -Foul Odor after Cleansing No -Anesthetic Used 4% Lidocaine Solution WC - Nurse 2 - General Ulcer CM Notes Start: 09/10/18 12:59 Freq: Status: Active Protocol: Activity Type Activity Date Activity User E-Sign Co-Sign Detail Recorded Client Recorded Date Recorded By Document 09/10/18 13:31 DV [id number] 09/10/18 13:32 DV 09/10/18 13:31 Wound Center Nurse 2 [Procedure/Treatment] -Time 13:32 -Correct Patient Yes -Correct Side, Site, Position Yes -Correct Procedure Yes -Procedure Performed Yes -Type of Procedure Debridement -Clinical Debridement Subcutaneous -Post Debridement Size (cm) - Length 1.5 -Post Debridement Size (cm) - Width 1.2 -Post Debridement Size (cm) - Depth 0.3 -Total Square Cm 1.80 -Wound/Ulcer Outcome Not Healed -Ulcer Cleansing Rinsed/ Irrigated with Saline -Foul Odor after Cleansing No -Bioengineered Tissue No -Bleeding Controlled with Pressure -Treatment Response Procedure Tolerated Well [See Physician Procedure note for Specifics] Pain Scale: 0-10 Numeric [Pain] -Is Patient Pain Free? Yes Musculoskeletal: Cachexia Neurological: Neuro grossly intact, - - nonambulatory Psych/Mental Status: Normal Affect, Appropriate, Alert and oriented to time, place, person, mood and affect Debridement Note Post-Debridement Measurements/Treatment WC - Nurse 2 - General Ulcer CM Notes Start: 09/10/18 12:59 Freq: Status: Active Protocol: Activity Type Activity Date Activity User E-Sign Co-Sign Detail Recorded Client Recorded Date Recorded By Document 09/10/18 13:31 DV [id number] 09/10/18 13:32 DV 09/10/18 13:31 Wound Center Nurse 2 #2 Coccyx -Time 13:32 -Correct Patient Yes -Correct Side, Site, Position Yes -Correct Procedure Yes -Procedure Performed Yes -Type of Procedure Debridement -Clinical Debridement Subcutaneous -Post Debridement Size (cm) - Length 1.5 -Post Debridement Size (cm) - Width 1.2 -Post Debridement Size (cm) - Depth 0.3 -Total Square Cm 1.80 -Wound/Ulcer Outcome Not Healed -Ulcer Cleansing Rinsed/ Irrigated with Saline -Foul Odor after Cleansing No -Bioengineered Tissue No -Bleeding Controlled with Pressure -Treatment Response Procedure Tolerated Well Pain Scale: 0-10 Numeric Is Patient Pain Free? Yes Wound debrided: stage 3 pressure ulcer coccyx Type of Debridement: Excisional debridement Anesthesia Used: 5% Lidocaine Gel Depth: in the subcutaneous layer Percentage of wound debrided: 100 Instrument Used: 5mm curette Tissue Removed: slough and devitalized tissue Severity: Fat Layer Exposed Amount of bleeding with debridement: Mild Bleeding Controlled with: Pressure Patient tolerated procedure well Assessment/Plan Assessment: See above diagnoses Plan: The patient was seen and examined at the wound center today and was updated on the plan of care. A subcutaneous debridement was performed today. The patient tolerated the procedure well. The patients wound care will consist of: isaac daily.Patient and daughter agree to continue on a palliative wound plan given the multiple wound care failures and patients multiple comorbidities that interfere with wound healing. Discussed this to patient and daughter. Pt to continue with offloading interventions such as turning q2h in bed at night and offloading when sitting, however she is noncompliant with this. previous cultures collected were negative. Baseline bloodwork reviewed and prealbumin was very low, encouraged the use of high protien drinks and to drink at minimum 3-4 ensure drinks per day, however patient is noncompliant with this. Patient educated on the importance of diet on wound healing and instructed to increase protein and vitamin C intake. Patient verbalized understanding. Due to patient's limited mobility and stage III pressure ulcer, she would benefit from the use of a sliding board and the use of a gel cushion for her wheelchair. Orders for the supplies were given. Patient will follow up at wound healing center in 4 weeks or sooner if needed. This note was generated with [employer] dictation software. It may contain incorrect words, spelling, and punctuation that were not noted in checking the note before signing. Code Visit 111xxx-113xx: [id number] Angie subq tissue 20 sq cm/<
== END 2018-09-16 23:59 ==
LOC: WC 08:37
PROVIDERS: Family Provider Family Medicine; PCP Family Medicine; Visit Provider Nurse Practitioner Family
DX: L89.153 Pressure ulcer of sacral region, stage 3 (principal); I10 Essential (primary) hypertension; M16.0 Bilateral primary osteoarthritis of hip; Z89.612 Acquired absence of left leg above knee; Z79.01 Long term (current) use of anticoagulants; Z86.711 Personal history of pulmonary embolism; Z86.718 Personal history of other venous thrombosis and embolism
CPT/HCPCS: 11042

== ENCOUNTER 2018-10-15 11:52 | Outpatient (RCR) | payer MEDICARE, OTHER, SELFPAY ==
[2018-09-17 00:58] VITALS: BP 106/56; PULSE 75; RESP 16; TEMP 35.4
[2018-10-15 13:02] VITALS: BP 146/67; PULSE 93; RESP 16; TEMP 36.2
--- NOTE | 2018-10-15 15:54 | PCM.WC.PN ---
(1) Stage III pressure ulcer Status: Acute Current Visit: Yes Code(s): L89.93 - Pressure ulcer of unspecified site, stage 3 Comment: coccyx (2) Immobility Status: Acute Current Visit: Yes Code(s): Z74.09 - Other reduced mobility (3) Malnutrition Status: Acute Current Visit: Yes Qualifiers: Code(s): E46 - Unspecified protein-calorie malnutrition (4) Amputation of left lower extremity Status: Chronic Current Visit: No Code(s): S88.912A - Complete traumatic amputation of left lower leg, level unspecified, initial encounter (5) Hyperlipidemia Status: Chronic Current Visit: No Code(s): E78.5 - Hyperlipidemia, unspecified (6) Hypertension Status: Chronic Current Visit: No Code(s): I10 - Essential (primary) hypertension (7) Hypothyroidism Status: Chronic Current Visit: No Code(s): E03.9 - Hypothyroidism, unspecified (8) Osteoarthritis of hips, bilateral Status: Chronic Current Visit: No Code(s): M16.0 - Bilateral primary osteoarthritis of hip (9) Osteoporosis Status: Chronic Current Visit: No Code(s): M81.0 - Age-related osteoporosis without current pathological fracture Type of Wound Date of Service: 10/15/18 Chief Complaint: stg 3 coccyx since November 2017 History of Wound: Patient presents today to the wound healing center for evaluation and treatment of a stage III pressure wound to her coccyx. She has a past medical history of left [id number] amputee, DVT, PE with long-term Coumadin anticoagulation, anemia, RA and OA. Patient and family believe the wound started around November 2017 due to pressure and constantly sitting in her chair. Her wound has been noted on multiple hospital admissions in the past. Cultures were previously done in January and demonstrated staph, Klebsiella, and Proteus and patient completed Levaquin and ampicillin therapy. The patient has also been in and out of the [facility]. She is currently residing at home with her . Due to her amputation, her mobility is severely limited and she spends most of her time sitting in either her wheelchair or her reclining chair at home. She does have a hospital bed that she just recently started sleeping at night. She does state that she has an excoriated buttocks as well due to having to scoot from her wheelchair to reclining chair and wheelchair to bed. Her wound care thus far has consisted of calmoseptine applied twice daily. Denies any heavy drainage, though does state that the ulcer bleeds at times. Denies any systemic signs of infection at this time. The patient otherwise denies any fever, chills, nausea, vomiting, shortness of breath, chest pain or pressure, palpitations, orthopnea, lower extremity edema, syncope or presyncopal episodes. She denies trying offloading mechanisms at home at this time and does not have a wheelchair cushion. Progress of Wound: Size stable, moderate amount of slough present, no signs of infection, patient doing well with palliative wound care, still has difficulty remaining compliant with offloading. - Physical Exam Vital Signs Temp Pulse Resp BP 97.1 F L 93 16 146/67 H 10/15/18 13:02 10/15/18 13:02 10/15/18 13:02 10/15/18 13:02 General: Alert, Oriented x3, Cooperative, No apparent distress HEENT: PERRLA, EOMI Lungs: Clear to auscultation, Normal air movement Cardiovascular: Regular rate Abdomen: Soft, Non Tender Extremities: No clubbing, No cyanosis, No edema Skin: Ulcer/ Wound - stage 3 pressure ulcer to coccyx with adherant slough present, no signs of infection at this time, small excoriation surrounding wound site Wound Measurements and Assessment WC - Nurse 1 - General Ulcer Measurement Start: 10/15/18 13:01 Freq: Status: Active Protocol: Activity Type Activity Date Activity User E-Sign Co-Sign Detail Recorded Client Recorded Date Recorded By Document 10/15/18 13:02 [id number] 10/15/18 13:05 10/15/18 13:02 Wound Center Nurse 1 [Ulcer Assessment] #2 Coccyx -Combined with other wound No -Current Size (cm) - Length 1.5 -Current Size (cm) - Width 1.5 -Current Size (cm) - Depth 0.3 -Total Square Cm 2.25 -Photo Taken Yes -Tunneling No -Undermining/Tunneling No -Circular Undermining No -Exudate Amt Small (1-33%) -Exudate Type Serosanguineous -Wound Margin Distinct, Outline Attached -Granulation Amt Large (67-100%) -Granulation Quality [place] -Slough/Fibrin Yes -Necrosis Amt Medium (34-66%) -Necrotic Tissue Type Adherent Slough -Structure Exposed N/A -Texture (Alexus-wound Skin Appearance) Assessed -Moisture (Alexus-wound Skin Appearance Assessed ) -Color (Alexus-wound Skin Appearance) Assessed -Temperature (Alexus-wound Skin No Abnormality Appearance) (Pt Warm) -Tenderness on Palpation (Alexus-wound No Skin Appearance) -Ulcer Cleansing Rinsed/ Irrigated with Saline -Foul Odor after Cleansing No -Anesthetic Used 5% Lidocaine Gel - Nurse 2 - General Ulcer CM Notes Start: 10/15/18 13:01 Freq: Status: Active Protocol: Activity Type Activity Date Activity User E-Sign Co-Sign Detail Recorded Client Recorded Date Recorded By Document 10/15/18 13:33 [id number] 10/15/18 13:33 10/15/18 13:33 Wound Center Nurse 2 [Procedure/Treatment] -Time 13:33 -Correct Patient Yes -Correct Side, Site, Position Yes -Correct Procedure Yes -Procedure Performed Yes -Type of Procedure Debridement -Clinical Debridement Subcutaneous -Post Debridement Size (cm) - Length 1.4 -Post Debridement Size (cm) - Width 1.6 -Post Debridement Size (cm) - Depth 0.3 -Total Square Cm 2.24 -Wound/Ulcer Outcome Not Healed -Ulcer Cleansing Not Cleansed -Foul Odor after Cleansing No -Bioengineered Tissue No -Bleeding Controlled with NA -Offloading No -Treatment Response Procedure Tolerated Well [See Physician Procedure note for Specifics] Pain Scale: 0-10 Numeric [Pain] -Is Patient Pain Free? Yes Musculoskeletal: Muscle Wasting Neurological: Neuro grossly intact, - - patient nonambulatory Psych/Mental Status: Normal Affect, Appropriate, Alert and oriented to time, place, person, mood and affect Debridement Note Post-Debridement Measurements/Treatment - Nurse 2 - General Ulcer CM Notes Start: 10/15/18 13:01 Freq: Status: Active Protocol: Activity Type Activity Date Activity User E-Sign Co-Sign Detail Recorded Client Recorded Date Recorded By Document 10/15/18 13:33 [id number] 10/15/18 13:33 10/15/18 13:33 Wound Center Nurse 2 #2 Coccyx -Time 13:33 -Correct Patient Yes -Correct Side, Site, Position Yes -Correct Procedure Yes -Procedure Performed Yes -Type of Procedure Debridement -Clinical Debridement Subcutaneous -Post Debridement Size (cm) - Length 1.4 -Post Debridement Size (cm) - Width 1.6 -Post Debridement Size (cm) - Depth 0.3 -Total Square Cm 2.24 -Wound/Ulcer Outcome Not Healed -Ulcer Cleansing Not Cleansed -Foul Odor after Cleansing No -Bioengineered Tissue No -Bleeding Controlled with NA -Offloading No -Treatment Response Procedure Tolerated Well Pain Scale: 0-10 Numeric Is Patient Pain Free? Yes Wound debrided: stage 3 pressure ulcer coccyx Laterality: Not Applicable Type of Debridement: Excisional debridement Anesthesia Used: 5% Lidocaine Gel Depth: in the subcutaneous layer Percentage of wound debrided: 100 Instrument Used: 5mm curette Tissue Removed: slough and devitalized tissue Severity: Fat Layer Exposed Amount of bleeding with debridement: Mild Bleeding Controlled with: Pressure Patient tolerated procedure well Assessment/Plan Active Problems Stage III pressure ulcer (Acute) coccyx Immobility (Acute) Malnutrition (Acute) Assessment: See above diagnoses Plan: The patient was seen and examined at the wound center today and was updated on the plan of care. A subcutaneous debridement was performed today. The patient tolerated the procedure well. The patients wound care will consist of: isaac and optifoam daily.Patient and daughter agree to continue on a palliative wound plan given the multiple wound care failures and patients multiple comorbidities that interfere with wound healing. Discussed this to patient and daughter. Pt to continue with offloading interventions such as turning q2h in bed at night and offloading when sitting, however she is noncompliant with this. previous cultures collected were negative. Baseline bloodwork reviewed and prealbumin was very low, encouraged the use of high protien drinks and to drink at minimum 3-4 ensure drinks per day, however patient is noncompliant with this. Patient educated on the importance of diet on wound healing and instructed to increase protein and vitamin C intake. Patient verbalized understanding. Due to patient's limited mobility and stage III pressure ulcer, she would benefit from the use of a sliding board and the use of a gel cushion for her wheelchair. Orders for the supplies were given. Patient will follow up at wound healing center in 4 weeks or sooner if needed. This note was generated with [employer] software. It may contain incorrect words, spelling, and punctuation that were not noted in checking the note before signing. Code Visit 111xxx-113xx: [id number] Angie subq tissue 20 sq cm/<
--- NOTE | 2018-10-15 15:58 | PN.PCM_ITS ---
(1) Stage III pressure ulcer Status: Acute Current Visit: Yes Code(s): L89.93 - Pressure ulcer of unspecified site, stage 3 Comment: coccyx (2) Immobility Status: Acute Current Visit: Yes Code(s): Z74.09 - Other reduced mobility (3) Malnutrition Status: Acute Current Visit: Yes Qualifiers: Code(s): E46 - Unspecified protein-calorie malnutrition (4) Amputation of left lower extremity Status: Chronic Current Visit: No Code(s): S88.912A - Complete traumatic amputation of left lower leg, level unspecified, initial encounter (5) Hyperlipidemia Status: Chronic Current Visit: No Code(s): E78.5 - Hyperlipidemia, unspecified (6) Hypertension Status: Chronic Current Visit: No Code(s): I10 - Essential (primary) hypertension (7) Hypothyroidism Status: Chronic Current Visit: No Code(s): E03.9 - Hypothyroidism, unspecified (8) Osteoarthritis of hips, bilateral Status: Chronic Current Visit: No Code(s): M16.0 - Bilateral primary osteoarthritis of hip (9) Osteoporosis Status: Chronic Current Visit: No Code(s): M81.0 - Age-related osteoporosis without current pathological fracture Type of Wound Date of Service: 10/15/18 Chief Complaint: stg 3 coccyx since November 2017 History of Wound: Patient presents today to the wound healing center for evaluation and treatment of a stage III pressure wound to her coccyx. She has a past medical history of left yxden-wem-cdte amputee, DVT, PE with long-term Cou madin anticoagulation, anemia, RA and OA. Patient and family believe the wound started around November 2017 due to pressure and constantly sitting in her chair. Her wound has been noted on multiple hospital admissions in the past. Cultures were previously done in January and demonstrated staph, Klebsiella, and Proteus and patient completed Levaquin and ampicillin therapy. The patient has also bee n in and out of the [facility]. She is currently residing at home with her . Due to her amputation, her mobility is severely limited and she spends most of her time sitting in either her wheelchair or her reclining chair at home. She does have a hospital bed that she just recently started sleeping at night. She does state that she has an excoriated buttocks as well due to having to scoot from her wheelchair to reclining chair and wheelchair to bed. Her wound care thus far has consisted of calmoseptine applied twice daily. Denies any heavy drainage, though does state that the ulcer bleeds at times. Denies any systemic signs of infection at this time. The patient otherwise denies any fever, chills, nausea, vomiting, shortness of breath, chest pain or pressure, palpitations, orthopnea, lower extremity edema, syncope or presyncopal episodes. She denies trying offloading mechanisms at home at this time and does not have a wheelchair cushion. Progress of Wound: Size stable, moderate amount of slough present, no signs of infection, patient doing well with palliative wound care, still has difficulty remaining compliant with offloading. - Physical Exam Vital Signs Temp Pulse Resp BP 97.1 F L 93 16 146/67 H 10/15/18 13:02 10/15/18 13:02 10/15/18 13:02 10/15/18 13:02 General: Alert, Oriented x3, Cooperative, No apparent distress HEENT: PERRLA, EOMI Lungs: Clear to auscultation, Normal air movement Cardiovascular: Regular rate Abdomen: Soft, Non Tender Extremities: No clubbing, No cyanosis, No edema Skin: Ulcer/ Wound - stage 3 pressure ulcer to coccyx with adherant slough present, no signs of infection at this time, small excoriation surrounding wound site Wound Measurements and Assessment WC - Nurse 1 - General Ulcer Measurement Start: 10/15/18 13:01 Freq: Status: Active Protocol: Activity Type Activity Date Activity User E-Sign Co-Sign Detail Recorded Client Recorded Date Recorded By Document 10/15/18 13:02 [id number] 10/15/18 13:05 10/15/18 13:02 Wound Center Nurse 1 [Ulcer Assessment] #2 Coccyx -Combined with other wound No -Current Size (cm) - Length 1.5 -Current Size (cm) - Width 1.5 -Current Size (cm) - Depth 0.3 -Total Square Cm 2.25 -Photo Taken Yes -Tunneling No -Undermining/Tunneling No -Circular Undermining No -Exudate Amt Small (1-33%) -Exudate Type Serosanguineous -Wound Margin Distinct, Outline Attached -Granulation Amt Large (67-100%) -Granulation Quality [place] -Slough/Fibrin Yes -Necrosis Amt Medium (34-66%) -Necrotic Tissue Type Adherent Slough -Structure Exposed N/A -Texture (Alexus-wound Skin Appearance) Assessed -Moisture (Alexus-wound Skin Appearance Assessed ) -Color (Alexus-wound Skin Appearance) Assessed -Temperature (Alexus-wound Skin No Abnormality Appearance) (Pt Warm) -Tenderness on Palpation (Alexus-wound No Skin Appearance) -Ulcer Cleansing Rinsed/ Irrigated with Saline -Foul Odor after Cleansing No -Anesthetic Used 5% Lidocaine Gel - Nurse 2 - General Ulcer CM Notes Start: 10/15/18 13:01 Freq: Status: Active Protocol: Activity Type Activity Date Activity User E-Sign Co-Sign Detail Recorded Client Recorded Date Recorded By Document 10/15/18 13:33 [id number] 10/15/18 13:33 10/15/18 13:33 Wound Center Nurse 2 [Procedure/Treatment] -Time 13:33 -Correct Patient Yes -Correct Side, Site, Position Yes -Correct Procedure Yes -Procedure Performed Yes -Type of Procedure Debridement -Clinical Debridement Subcutaneous -Post Debridement Size (cm) - Length 1.4 -Post Debridement Size (cm) - Width 1.6 -Post Debridement Size (cm) - Depth 0.3 -Total Square Cm 2.24 -Wound/Ulcer Outcome Not Healed -Ulcer Cleansing Not Cleansed -Foul Odor after Cleansing No -Bioengineered Tissue No -Bleeding Controlled with NA -Offloading No -Treatment Response Procedure Tolerated Well [See Physician Procedure note for Specifics] Pain Scale: 0-10 Numeric [Pain] -Is Patient Pain Free? Yes Musculoskeletal: Muscle Wasting Neurological: Neuro grossly intact, - - patient nonambulatory Psych/Mental Status: Normal Affect, Appropriate, Alert and oriented to time, place, person, mood and affect Debridement Note Post-Debridement Measurements/Treatment - Nurse 2 - General Ulcer CM Notes Start: 10/15/18 13:01 Freq: Status: Active Protocol: Activity Type Activity Date Activity User E-Sign Co-Sign Detail Recorded Client Recorded Date Recorded By Document 10/15/18 13:33 [id number] 10/15/18 13:33 10/15/18 13:33 Wound Center Nurse 2 #2 Coccyx -Time 13:33 -Correct Patient Yes -Correct Side, Site, Position Yes -Correct Procedure Yes -Procedure Performed Yes -Type of Procedure Debridement -Clinical Debridement Subcutaneous -Post Debridement Size (cm) - Length 1.4 -Post Debridement Size (cm) - Width 1.6 -Post Debridement Size (cm) - Depth 0.3 -Total Square Cm 2.24 -Wound/Ulcer Outcome Not Healed -Ulcer Cleansing Not Cleansed -Foul Odor after Cleansing No -Bioengineered Tissue No -Bleeding Controlled with NA -Offloading No -Treatment Response Procedure Tolerated Well Pain Scale: 0-10 Numeric Is Patient Pain Free? Yes Wound debrided: stage 3 pressure ulcer coccyx Laterality: Not Applicable Type of Debridement: Excisional debridement Anesthesia Used: 5% Lidocaine Gel Depth: in the subcutaneous layer Percentage of wound debrided: 100 Instrument Used: 5mm curette Tissue Removed: slough and devitalized tissue Severity: Fat Layer Exposed Amount of bleeding with debridement: Mild Bleeding Controlled with: Pressure Patient tolerated procedure well Assessment/Plan Active Problems Stage III pressure ulcer (Acute) coccyx Immobility (Acute) Malnutrition (Acute) Assessment: See above diagnoses Plan: The patient was seen and examined at the wound center today and was updated on the plan of care. A subcutaneous debridement was performed today. The patient tolerated the procedure well. The patients wound care will consist of: isaac and optifoam daily.Patient and daughter agree to continue on a palliative wound plan given the multiple wound care failures and patients multiple comorbidities that interfere with wound healing. Discussed this to patient and daughter. Pt to continue with offloading interventions such as turning q2h in bed at night and offloading when sitting, however she is noncompliant with this. previous cultures collected were negative. Baseline bloodwork reviewed and prealbumin was very low, encouraged the use of high protien drinks and to drink at minimum 3-4 ensure drinks per day, however patient is noncompliant with this. Patient educated on the importance of diet on wound healing and instructed to increase protein and vitamin C intake. Patient verbalized understanding. Due to patient's limited mobility and stage III pressure ulcer, she would benefit from the use of a sliding board and the use of a gel cushion for her wheelchair. Orders for the supplies were given. Patient will follow up at wound healing center in 4 weeks or sooner if needed. This note was generated with [employer] dictation software. It may contain incorrect words, spelling, and punctuation that were not noted in checking the note before signing. Code Visit 111xxx-113xx: [id number] Angie subq tissue 20 sq cm/<
--- OUTSIDE RECORDS SUMMARY | 2018-12-10 15:13 | XMS RPT_ITS ---
:1935 Author Organization [place] Support Name Relationship Address Phone RADHA LA Unavailable [address] + [place] [address] R Unavailable Unavailable Unavailable [facility], KELTON Unavailable [address] + [place] [address] RADHA LA Unavailable [address] + [place] [address] R Unavailable Unavailable Unavailable [facility] KELTON Unavailable [address] + [place] [address] RADHA LA Unavailable [address] + [place] [address] R Unavailable Unavailable Unavailable [facility] KELTON Unavailable [address] + [place] [address] RADHA LA Unavailable [address] + [place] [address] R Unavailable Unavailable Unavailable [facility] KELTON Unavailable [address] + [place] [address] RADHA LA Unavailable [address] + [place] [address] R Unavailable Unavailable Unavailable [facility] KELTON Unavailable [address] + [place] [address] RADHA LA Unavailable [address] + [place] [address] R Unavailable Unavailable Unavailable [facility] KELTON Unavailable [address] + [place] [address] RADHA LA Unavailable [address] + [place] [address] R Unavailable Unavailable Unavailable [facility], KELTON Unavailable [address] + [place] [address] RADHA LA Unavailable [address] + [place] [address] R Unavailable Unavailable Unavailable [facility], KELTON Unavailable [address] + [place] [address] RADHA LA Unavailable [address] + [place] [address] R Unavailable Unavailable Unavailable [facility] KELTON Unavailable [address] + [place] [address] RADHA LA Unavailable [address] + [place] [address] R Unavailable Unavailable Unavailable [facility] KELTON Unavailable [address] + [place] [address] RADHA LA Unavailable [address] + [place] [address] R Unavailable Unavailable Unavailable [facility] KELTON Unavailable [address] + [place] [address] RADHA LA Unavailable [address] + [place] [address] R Unavailable Unavailable Unavailable [facility], KELTON Unavailable [address] + [place] [address] RADHA LA Unavailable [address] + [place] [address] R Unavailable Unavailable Unavailable [facility] KELTON Unavailable [address] + [place] [address] RADHA AL Unavailable [address] + [place] [address] R Unavailable Unavailable Unavailable [facility] KELTON Unavailable [address] + [place] [address] RADHA LA Unavailable [address] + [place] [address] R Unavailable Unavailable Unavailable [facility] KELTON Unavailable [address] + [place] [address] RADHA LA Unavailable [address] + [place] [address] R Unavailable Unavailable Unavailable [facility] KELTON Unavailable [address] + [place] [address] RADHA LA Unavailable [address] + [place] [address] R Unavailable Unavailable Unavailable [facility] KELTON Unavailable [address] + [place] [address] RADHA LA Unavailable [address] + [place] [address] R Unavailable Unavailable Unavailable [facility] KELTON Unavailable [address] + [place] [address] RADHA LA Unavailable [address] + [place] [address] R Unavailable Unavailable Unavailable [facility]TON Unavailable [address] + [place] [address] RADHA LA Unavailable [address] + [place] [address] R Unavailable Unavailable Unavailable [facility] KELTON Unavailable [address] + [place] [address] RADHA LA Unavailable [address] + [place] [address] R Unavailable Unavailable Unavailable [facility]ELTON Unavailable [address] + [place] [address] RADHA LA Unavailable [address] + [place] [address] R Unavailable Unavailable Unavailable [facility] Unavailable [address] + [place] [address] RADHA LA Unavailable [address] + [place] [address] R Unavailable Unavailable Unavailable [facility] KELTON Unavailable [address] + [place] [address] RADHA LA Unavailable [address] + [place] [address] R Unavailable Unavailable Unavailable [facility] KELTON Unavailable [address] + [place] [address] RADHA LA Unavailable [address] + [place] [address] R Unavailable Unavailable Unavailable [facility] KELTON Unavailable [address] + [place] [address] RADHA LA Unavailable Unavailable + NOT GIVEN Unavailable Unavailable Unavailable [facility] Unavailable [address] [place] [address] RADHA LA Unavailable [address] + [place] [address] R Unavailable Unavailable Unavailable [facility] Unavailable [address] + [place] [address] RADHA LA Unavailable [address] + [place] [address] R Unavailable Unavailable Unavailable [facility]TON Unavailable [address] + [place] [address] RADHA LA Unavailable [address] + [place] [address] R Unavailable Unavailable Unavailable [facility] Unavailable [address] + [place] [address] RADHA LA Unavailable [address] + [place] [address] R Unavailable Unavailable Unavailable [facility] Unavailable [address] + [place] [address] RADHA LA Unavailable [address] + [place] [address] R Unavailable Unavailable Unavailable [facility] Unavailable [address] + [place] [address] RADHA LA Unavailable Unavailable + NOT GIVEN Unavailable Unavailable Unavailable [facility] Unavailable [address] [place] [address] Care Team Providers Name Role Phone CEBUL III, SUMAN Devin Attending Unavailable CEBUL III, SUMAN A Referring Unavailable CEBUL III, SUMAN A Attending Unavailable BOBO ZHU Attending Unavailable CEBUL III, SUMAN Devin Referring Unavailable CEBUL III, SUMAN Devin Referring Unavailable BOBO ZHU Attending Unavailable CEBUL III, SUMAN A Attending Unavailable CEBUL III, SUMAN A Referring Unavailable RUFINO DUMAS (STOCKBROKING DEALER) Attending Unavailable CEBUL III, SUMAN Devin Referring Unavailable KEYSHAWN CARPIO Referring Unavailable CEBUL III, SUMAN A Attending Unavailable CEBUL III, SUMAN A Referring Unavailable CEBUL III, SUMAN A Attending Unavailable CEBUL III, SUMAN A Attending Unavailable CEBUL III, SUMAN A Referring Unavailable CEBUL III, SUMAN A Referring Unavailable BOBO ZHU Attending Unavailable CEBUL III, SUMAN A Referring Unavailable BOBO ZHU Attending Unavailable CEBUL III, SUMAN A Referring Unavailable BOBO ZHU T Attending Unavailable CEBUL III, SUMAN A Referring Unavailable CEBUL, SUMAN III Consulting Unavailable CEBUL, SUMAN III Referring Unavailable DAVID KAY MD Admitting Unavailable DAVID KAY MD Attending Unavailable DAVID KAY MD Primary Care Unavailable PROVIDER, UNKNOWN Consulting Unavailable NIKI GONZALEZ MD Admitting Unavailable NIKI GONZALEZ MD Attending Unavailable NIKI GONZALEZ MD Primary Care Unavailable CEBUL, SUMAN III Consulting Unavailable PROVIDER, UNKNOWN Consulting Unavailable Bobo Zhu Attending Unavailable Bobo Zhu Referring Unavailable Cebul III, Suman Primary Care Unavailable Cebul III, Suman Attending Unavailable Cebul III, Suman Primary Care Unavailable Cebul III, Suman Referring Unavailable Cebul III, Suman Attending Unavailable Cebul III, Suman Referring Unavailable Cebul III, Suman Primary Care Unavailable Cebul III, Suman Primary Care Unavailable Viola Massey Attending Unavailable Cebul III, Suman Attending Unavailable Cebul III, Suman Primary Care Unavailable Thor Kwan Attending Unavailable Bobo Zhu Referring Unavailable GallagherWilbur STOCKBROKING DEALER-C Attending Unavailable Cebul III, Suman Primary Care Unavailable Gallagher, Wilbur STOCKBROKING DEALER-C Attending Unavailable Cebul III, Suman Primary Care Unavailable Gallagher, Wilbur STOCKBROKING DEALER-C Consulting Unavailable GallagherWilbur STOCKBROKING DEALER-C Attending Unavailable Cebul III, Suman Primary Care Unavailable Gallagher, Wilbur STOCKBROKING DEALER-C Consulting Unavailable GallagherWilbur STOCKBROKING DEALER-C Attending Unavailable Cebul III, Suman Primary Care Unavailable GallagherWilbur STOCKBROKING DEALER-C Attending Unavailable Cebul III, Suman Primary Care Unavailable Gallagher, Wilbur STOCKBROKING DEALER-C Consulting Unavailable Gallagher, Wilbur STOCKBROKING DEALER-C Attending Unavailable Cebul III, Suman Primary Care Unavailable Gallagher, Wilbur STOCKBROKING DEALER-C Consulting Unavailable Gallagher, Wilbur STOCKBROKING DEALER-C Attending Unavailable Cebul III, Suman Primary Care Unavailable Gallagher, Wilbur STOCKBROKING DEALER-C Consulting Unavailable Gallagher, Wilbur STOCKBROKING DEALER-C Attending Unavailable Cebul III, Suman Primary Care Unavailable Gallagher, Wilbur STOCKBROKING DEALER-C Consulting Unavailable Gallagher, Wilbur STOCKBROKING DEALER-C Attending Unavailable Cebul III, Suman Primary Care Unavailable Gallagher, Wilbur STOCKBROKING DEALER-C Consulting Unavailable Gallagher, Wilbur STOCKBROKING DEALER-C Attending Unavailable Cebul III, Suman Primary Care Unavailable Gallagher, Wilbur STOCKBROKING DEALER-C Attending Unavailable Cebul III, Suman Primary Care Unavailable Gallagher, Wilbur STOCKBROKING DEALER-C Consulting Unavailable Cebul III, Suman Primary Care Unavailable Viola Massey Attending Unavailable Gallagher, Wilbur STOCKBROKING DEALER-C Attending Unavailable Cebul III, Suman Primary Care Unavailable Gallagher, Wilbur STOCKBROKING DEALER-C Consulting Unavailable Gallagher, Wilbur STOCKBROKING DEALER-C Attending Unavailable Cebul III, Suman Primary Care Unavailable Gallagher, Wilbur STOCKBROKING DEALER-C Consulting Unavailable Gallagher, Wilbur STOCKBROKING DEALER-C Attending Unavailable Cebul III, Suman Primary Care Unavailable Gallagher, Wilbur STOCKBROKING DEALER-C Consulting Unavailable Gallagher, Wilbur STOCKBROKING DEALER-C Attending Unavailable Cebul III, Suman Primary Care Unavailable Gallagher, Wilbur STOCKBROKING DEALER-C Attending Unavailable Cebul III, Suman Primary Care Unavailable Gallagher, Wilbur STOCKBROKING DEALER-C Consulting Unavailable Gallagher, Wilbur STOCKBROKING DEALER-C Attending Unavailable Cebul III, Suman Primary Care Unavailable Gallagher, Wilbur STOCKBROKING DEALER-C Consulting Unavailable Gallagher, Wilbur STOCKBROKING DEALER-C Attending Unavailable Cebul III, Suman Primary Care Unavailable Gallagher, Wilbur STOCKBROKING DEALER-C Consulting Unavailable Gallagher, Wilbur STOCKBROKING DEALER-C Attending Unavailable Cebul III, Suman Primary Care Unavailable Gallagher, Wilbur STOCKBROKING DEALER-C Consulting Unavailable Gallagher, Wilbur STOCKBROKING DEALER-C Attending Unavailable Cebul III, Suman Primary Care Unavailable Gallagher, Wilbur STOCKBROKING DEALER-C Attending Unavailable Cebul III, Suman Primary Care Unavailable Gallagher, Wilbur STOCKBROKING DEALER-C Consulting Unavailable Gallagher, Wilbur STOCKBROKING DEALER-C Attending Unavailable Cebul III, Suman Primary Care Unavailable Gallagher, Wilbur STOCKBROKING DEALER-C Attending Unavailable Cebul III, Suman Primary Care Unavailable Gallagher, Wilbur STOCKBROKING DEALER-C Consulting Unavailable PROBLEMS PROBLEMS DATE TYPE CONDITION / CODE ATTENDING STATUS SOURCE Active Deficiency of other NA Active [place] [address] specified B group [facility] Main vitamins / [place] E53.8(ICD-10) Repository Active Unknown / UNK(Unknown) RUFINO DUMAS Active [place] [address] (STOCKBROKING DEALER) [facility] Main [place] Repository Unknown I82.409 - Acute Cebul III, Active Oral 8 embolism and Suman Community thrombosis of Hospital unspecified deep veins Repository of unspecified lower extremity / I82.409(ICD-10) Active Iron deficiency NA Active [place] 8 anemia, unspecified / Clinic Main D50.9(ICD-10) [place] Repository Unknown R94.31 - Abnormal Thor Kwan Active Oral 8 electrocardiogram Community [ECG] [EKG] / Hospital R94.31(ICD-10) Repository Admitting Syncope and collapse / LATOUF, BUTROS Active Eran Pomerene 8 Diagnosis R55(ICD-10) [facility] Repository Principle Anemia, unspecified / LATOUF, BUTROS Active Eran Pomerene 8 Diagnosis D649(ICD-10) [facility] Repository Secondary [facility]ope and collapse [facility] Eran Pomerene 8 Diagnosis R55(ICD-10) [facility] Repository Active Hyperlipidemia, NA Active Ramos 6 unspecified / Clinic Main E78.5(ICD-10) [place] Repository Active Hypothyroidism, NA Active Ramos 0 unspecified / Clinic Main E03.9(ICD-10) [place] Repository Active Essential (primary) NA Active [place] 8 hypertension / Clinic Main I10(ICD-10) [place] Repository PROCEDURES PROCEDURES No Procedure Records FoundRESULTS RESULTS CNPN Observed: 10/15/2018 Status: COMPLETED Source: [place] 12:00 AM [facility] REPOSITORY Telephone (PHARMN) DEMETRIO KAISER ([id number]) 1935 F Date Time Provider Department 10/15/18 EVON (PHARMACIST)BIRGIT During your visit today, we recorded the following information about you: Edward Dangelo 10/15/2018 10:47 AM Signed Spoke to patient and reminded her to test her home INR. The patient states that once her gets free, he will help her to test, and it might be this afternoon. She verbalized understanding of instructions. Edward Dangelo 10/15/2018 11:33 AM Signed Patient was called by the Anticoag Clinic for Home INR check follow-up. (INR Goal: 2-3) Please see Anticoagulation Navigator for additional information. PT INR (no units) Date Value 09/10/2018 3.4 08/26/2018 2.2 08/18/2018 3.4 INR Home CoaguChek (no units) Date Value 10/15/2018 2.5 10/09/2018 1.9 2018 1.7 Current INR result is therapeutic. Patient advised to continue current warfarin dose. (per patient: 1mg Sun/ 0.5mg other days) Patient verbalized understanding of instructions. Next INR test on 10/22 Clarita Merino, [facility] Chantal Burden LPN, LIVING ADVISOR 10/16/2018 11:21 AM Signed Patient contacted PAC regarding clarification of current dosing: reviewed warfarin 1 mg ( whole tablet) [place]/ 0.5 mg ( half tablet) on all other days and next INR due on 10/22/18. No further questions. Chantal Burden LPN, Pharmacy Anticoagulation Clinic Allergies As of Date: 10/15/2018 Noted Allergy Reaction AUGMENTIN (AMOXICILLIN-POT CLAVUL*04/13/2010 CEFTRIAXONE 04/13/2010 CELECOXIB 04/18/2003 Comments: itch IMURAN (AZATHIOPRINE SODIUM) 04/13/2010 LODINE (ETODOLAC) 02/17/2012 16 - Unknown METHOTREXATE 04/18/2003 Comments: affected liver(cirrhosis) NSAIDS (NON-STEROIDAL ANTI-INFLAM*04/18/2003 Comments: Hives Patient tolerates aspirin PENICILLINS 04/18/2003 Comments: nauseated and vomiting PURINE ANTAGONIST ANTIMETABOLITE 04/18/2003 Comments: nausea and vomiting SULFAMETHOXAZOLE-TRIMETHOPRIM 02/17/2012 2 - Rash Date Reviewed: 10/13/2018 Reviewed by: Bobo Zhu - Fully Assessed Reason for Visit: Anticoagulation Telephone Fu [148] Cmt: Home INR Reason For Visit History Recorded Prescriptions as of 10/15/2018 Sig: WARFARIN 1 MG TABLET 0.5mg daily Friday through * LISINOPRIL 40 MG TABLET Take 1 tablet by mouth every * HYDROCODONE 7.5 MG-ACETAMINOP* Take 1 tablet by mouth three * LEVOTHYROXINE 75 MCG CAPSULE Take 75 mcg by mouth once deana* CYANOCOBALAMIN (VIT B-12) 1,0* Inject 1 mL intramuscularly o* MOMETASONE 0.1 % TOPICAL CREAM Apply 1 application to affect* HONEY 80 % TOPICAL GEL Use as directed Patient not taking: Reported on 09/08/2018 COMPOUNDED PRESCRIPTION MEDI-HONEY FOR PRESSURE ULCER* Patient not taking: Reported on 09/08/2018 NYSTATIN 100,000 UNIT/GRAM TO* Apply 1 application to affect* Patient not taking: Reported on 07/06/2018 AMLODIPINE 5 MG TABLET Take 1 tablet by mouth once d* SIMVASTATIN 20 MG TABLET Take 1 tablet by mouth daily * PANTOPRAZOLE 40 MG TABLET,DEL* Take 40 mg by mouth once karyna* FERROUS SULFATE 325 MG (65 MG* Take 1 tablet by mouth twice * POLYETHYLENE GLYCOL 3350 17 G* 17 gram/8 oz water by mouth d* Problem List As Of Date 10/15/2018 Noted Resolved IRON DEFIC ANEMIA NOS [D50.9] INVALID FOR* Carpal tunnel syndrome [G56.00] INVALID FOR*02/21/2015 OSTEOPOROSIS NOS [M81.0] More... DIFFUS CYSTIC MASTOPATHY [N60.19] INVALID FOR* DERMATOPHYTOSIS OF NAIL [B35.1] INVALID FOR* Varicose veins of lower extremities with ulcer *INVALID FOR*02/21/2015 Venous (peripheral) insufficiency [I87.2] INVALID FOR* More... ASTHMA UNSPECIFIED [J45.909] INVALID FOR* Open wound of knee, leg (except thigh), and ank*INVALID FOR*02/21/2015 Primary localized osteoarthrosis, lower leg [M1*INVALID FOR*02/21/2015 ADJUSTMENT DISORDER WITH DEPRESSED MOOD [F43.21]INVALID FOR* S/P RIGHT HIP JOINT REPLACEMENT [Z96.649] INVALID FOR*02/21/2015 LT HIP, COMPLIC MEDICAL LOGISTICS SPECIALIST JOINT DEVICE [996.77] [T*INVALID FOR*02/17/2012 More... RIGHT KNEE RHEUM ARTHRITIS [714.2] [M05.60] INVALID FOR* S/P RIGHT KNEE REPLACEMENT [V43.65] [Z96.659] INVALID FOR*12/31/2016 LT KNEE, INFEC/INFLAM-MEDICAL LOGISTICS SPECIALIST JOINT DEV [996.66]*INVALID FOR*02/21/2015 SUMMARY [V999.95] INVALID FOR* More... Abnormal Stress Test [R94.39] INVALID FOR* More... Hypertension [I10] INVALID FOR* More... Femoral DVT (deep venous thrombosis) (HCC) [I82*INVALID FOR*02/21/2015 More... 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 Rheumatoid arthritis involving multiple sites (*INVALID FOR* Chronic anticoagulation [Z79.01] INVALID FOR* C. 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] INVALID FOR* Vitamin B12 deficiency [E53.8] INVALID FOR* Recurrent deep vein thrombosis (DVT) (HCC) [I82*INVALID FOR* Amputation status of lower extremity (HCC) [Z89*INVALID FOR* Anemia [D64.9] INVALID FOR* Cystitis [N30.90] INVALID FOR* Superficial injury of buttock without infection*INVALID FOR* Acute embolism and thrombosis of deep vein of l*INVALID FOR* Osteoarthritis of hip [M16.9] INVALID FOR* Encounter Status:Closed by EVON (PHARMACIST)CLARITA on 10/15/18 PROGRESS Observed: 10/13/2018 Status: COMPLETED Source: [place] [address]:51 PM [facility] REPOSITORY HNO ID: [id number] Author: Bobo Zhu Service: (none) Author Type: Physician Type: Progress Notes Filed: 10/13/2018 6:54 PM Note Text: FOLLOW UP VISIT - SKIN LESION NAME: Demetrio Kaiser [facility] NO.: [id number] DATE OF SERVICE: 10/13/2018 : 1935 REFERRING PHYSICIAN: Suman Stern III MD Demetrio is a patient I am following for a skin lesion on her right shoulder and right anterior chest. I performed an excision of this skin lesion on 2018. The patient notes no complaints since the procedure. The patient returns today for wound check and suture removal. The pathology returned as: FINAL DIAGNOSIS A. ?Skin, right upper shoulder lateral superior margin, excision: ?Basal cell carcinoma, nodular type, completely excised. ? B. 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 ? SDB/LW/gp 10/02/2018 VITALS: There were no vitals taken for this visit. On examination, the skin incision is healing well with no signs of infection or inflammation. The sutures were removed and Steri- Strips were applied. 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 I have asked her to return in 2-3 months to reevaluate the chest wound and if there is any abnormalities and the skin has relax somewhat we will consider reexcision Diagnoses: (L98.9) Skin lesion (primary encounter diagnosis) Return to Clinic: The patient is instructed to follow- up with me in 2- 3 months. Bobo Zhu MD CNOV Observed: 10/13/2018 Status: COMPLETED Source: [place] 3:00 PM [facility] REPOSITORY Office Visit (GENSWS) DEMETRIO KAISER ([id number]) 1935 F Date Time Provider Department 10/13/18 3:00 PM BOBO ZHU During your visit today, we recorded the following information about you: Bobo Zhu MD 10/13/2018 6:54 PM Signed FOLLOW UP VISIT - SKIN LESION NAME: Demetrio Kaiser CLINIC NO.: [id number] DATE OF SERVICE: 10/13/2018 : 1935 REFERRING PHYSICIAN: Suman Stern III MD Demetrio is a patient I am following for a skin lesion on her right shoulder and right anterior chest. I performed an excision of this skin lesion on 2018. The patient notes no complaints since the procedure. The patient returns today for wound check and suture removal. The pathology returned as: FINAL DIAGNOSIS A. ?Skin, right upper shoulder lateral superior margin, excision: ?Basal cell carcinoma, nodular type, completely excised. ? B. 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 ? SDB/LW/gp 10/02/2018 VITALS: There were no vitals taken for this visit. On examination, the skin incision is healing well with no signs of infection or inflammation. The sutures were removed and Steri-Strips were applied. 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 I have asked her to return in 2-3 months to reevaluate the chest wound and if there is any abnormalities and the skin has relax somewhat we will consider reexcision Diagnoses: (L98.9) Skin lesion (primary encounter diagnosis) Return to Clinic: The patient is instructed to follow- up with me in 2- 3 months. Bobo Zhu MD Referring Provider: SUMAN STERN III [[id number]] Allergies As of Date: 10/13/2018 Noted Allergy Reaction AUGMENTIN (AMOXICILLIN-POT CLAVUL*04/13/2010 CEFTRIAXONE 04/13/2010 CELECOXIB 04/18/2003 Comments: itch IMURAN (AZATHIOPRINE SODIUM) 04/13/2010 LODINE (ETODOLAC) 02/17/2012 16 - Unknown METHOTREXATE 04/18/2003 Comments: affected liver(cirrhosis) NSAIDS (NON-STEROIDAL ANTI-INFLAM*04/18/2003 Comments: Hives Patient tolerates aspirin PENICILLINS 04/18/2003 Comments: nauseated and vomiting PURINE ANTAGONIST ANTIMETABOLITE 04/18/2003 Comments: nausea and vomiting SULFAMETHOXAZOLE-TRIMETHOPRIM 02/17/2012 2 - Rash Date Reviewed: 10/13/2018 Reviewed by: Bobo Zhu - Fully Assessed Reason for Visit: Post Op [174] Primary Visit Diagnosis:Skin lesion [L98.9] Prescriptions as of 10/13/2018 Sig: WARFARIN 1 MG TABLET 0.5mg daily Friday through * LISINOPRIL 40 MG TABLET Take 1 tablet by mouth every * HYDROCODONE 7.5 MG-ACETAMINOP* Take 1 tablet by mouth three * LEVOTHYROXINE 75 MCG CAPSULE Take 75 mcg by mouth once deana* CYANOCOBALAMIN (VIT B-12) 1,0* Inject 1 mL intramuscularly o* MOMETASONE 0.1 % TOPICAL CREAM Apply 1 application to affect* HONEY 80 % TOPICAL GEL Use as directed Patient not taking: Reported on 09/08/2018 COMPOUNDED PRESCRIPTION MEDI-HONEY FOR PRESSURE ULCER* Patient not taking: Reported on 09/08/2018 NYSTATIN 100,000 UNIT/GRAM TO* Apply 1 application to affect* Patient not taking: Reported on 07/06/2018 AMLODIPINE 5 MG TABLET Take 1 tablet by mouth once d* SIMVASTATIN 20 MG TABLET Take 1 tablet by mouth daily * PANTOPRAZOLE 40 MG TABLET,DEL* Take 40 mg by mouth once karyna* FERROUS SULFATE 325 MG (65 MG* Take 1 tablet by mouth twice * POLYETHYLENE GLYCOL 3350 17 G* 17 gram/8 oz water by mouth d* Problem List As Of Date 10/13/2018 Noted Resolved IRON DEFIC ANEMIA NOS [D50.9] INVALID FOR* Carpal tunnel syndrome [G56.00] INVALID FOR*02/21/2015 OSTEOPOROSIS NOS [M81.0] More... 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 ASTHMA UNSPECIFIED [J45.909] INVALID FOR* Open wound of knee, leg (except thigh), and ank*INVALID FOR*02/21/2015 Primary localized osteoarthrosis, lower leg [M1*INVALID FOR*02/21/2015 ADJUSTMENT DISORDER WITH DEPRESSED MOOD [F43.21]INVALID FOR* S/P RIGHT HIP JOINT REPLACEMENT [Z96.649] INVALID FOR*02/21/2015 LT HIP, COMPLIC MEDICAL LOGISTICS SPECIALIST JOINT DEVICE [996.77] [T*INVALID FOR*02/17/2012 Priority: D More... RIGHT KNEE RHEUM ARTHRITIS [714.2] [M05.60] INVALID FOR* S/P RIGHT KNEE REPLACEMENT [V43.65] [Z96.659] INVALID FOR*12/31/2016 LT KNEE, INFEC/INFLAM-MEDICAL LOGISTICS SPECIALIST JOINT DEV [996.66]*INVALID FOR*02/21/2015 SUMMARY [V999.95] INVALID FOR* More... Abnormal Stress Test [R94.39] INVALID FOR* Priority: A More... Hypertension [I10] INVALID FOR* Priority: C More... Femoral DVT (deep venous thrombosis) (HCC) [I82*INVALID FOR*02/21/2015 More... 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 Rheumatoid arthritis involving multiple sites (*INVALID FOR* Chronic anticoagulation [Z79.01] INVALID FOR* C. difficile enteritis [A04.72] INVALID FOR*04/01/2017 USP prescription opiate use [Z79.891] INVALID FOR* Vitamin B12 deficiency [E53.8] INVALID FOR* Recurrent deep vein thrombosis (DVT) (HCC) [I82*INVALID FOR* Amputation status of lower extremity (HCC) [Z89*INVALID FOR* Anemia [D64.9] INVALID FOR* Cystitis [N30.90] INVALID FOR* Superficial injury of buttock without infection*INVALID FOR* Acute embolism and thrombosis of deep vein of l*INVALID FOR* Osteoarthritis of hip [M16.9] INVALID FOR* Follow-up and Disposition History Recorded Encounter Status:Closed by BOBO ZHU MD on 10/13/18 PROGRESS Observed: 2018 Status: COMPLETED Source: [place] 8:20 AM [facility] [place] REPOSITORY O ID: [id number] Author: Bobo Zhu Service: (none) Author Type: Physician Type: Progress Notes Filed: 10/06/2018 8:11 PM Note Text: FOLLOW UP VISIT - SKIN LESION NAME: Demetrio Kaiser [facility] NO.: [id number] DATE OF SERVICE: 2018 : 1935 REFERRING PHYSICIAN: Suman Stern III MD The patient is a 82 year old female. She has a an erythematous skin lesion on her right anterior chest which is somewhat flat and on her right superior shoulder just lateral to the A 1-1/2 cm raised irregular lesion consistent with a skin cancer. The patient is currently on Coumadin for history of DVTs. Demetrio has not taken Coumadin for the past 3 days. VITALS: There were no vitals taken for this visit. Chest-1 cm flat slightly erythematous lesion, right superior shoulder lateral neck area-1-1/2 cm raised irregular lesion consistent with a squamous cell carcinoma PROCEDURE: EXCISION OF SKIN LESION The risks, benefits and anticipated outcomes of the procedure, the risks and benefits of the alternatives to the procedure, and the roles and tasks of the personnel to be involved, were discussed with the patient, and the patient consents to the procedure and agrees to proceed. I verify that I personally obtained the patient's consent. Site #1 - right lateral neck The patient`s skin was prepped and draped in the usual fashion. A combination of Lidocaine and Marcaine was injected into the skin. An elliptical incision was made around the lesion and was removed in its entirety. The specimen measured 4 by 2 cm. This was sent to pathology. Suture marked the lateral margin of the excision The skin was then closed with interrupted 3-0 and 4-0 nylon sutures. The patient tolerated the procedure well. Site # 2, right chest The patient`s skin was prepped and draped in the usual fashion. A combination of Lidocaine and Marcaine was injected into the skin. An elliptical incision was made around the lesion and was removed in its entirety. The specimen measured 2 by 1 cm. This was sent to pathology. The skin was then closed with interrupted 4-0 nylon sutures. The patient tolerated the procedure well. Assessment IMPRESSION: Status post excision of a suspicious right neck lesion and chest lesion PLAN: If the patient notes any problems or signs of wound infections, the patient should contact me immediately. The patient is to follow up in approximately 12 days for suture removal. Diagnoses: (L98.9) Skin lesion (primary encounter diagnosis) Return to Clinic: The patient is instructed to follow- up with me in 12 days. Bobo Zhu MD CNOV Observed: 2018 Status: COMPLETED Source: [place] 8:10 AM [facility] REPOSITORY Office Visit (GENSWS) DEMETRIO K[facility] ([id number]) 1935 F Date Time Provider Department 11/15/18 8:10 AM BOBO ZHU During your visit today, we recorded the following information about you: Bobo Zhu MD 10/06/2018 8:11 PM Signed FOLLOW UP VISIT - SKIN LESION NAME: Demetrio Kaiser [facility] NO.: [id number] DATE OF SERVICE: 2018 : 1935 REFERRING PHYSICIAN: Suman Stern III MD The patient is a 82 year old female. She has a an erythematous skin lesion on her right anterior chest which is somewhat flat and on her right superior shoulder just lateral to the A 1-1/2 cm raised irregular lesion consistent with a skin cancer. The patient is currently on Coumadin for history of DVTs. Demetrio has not taken Coumadin for the past 3 days. VITALS: There were no vitals taken for this visit. Chest-1 cm flat slightly erythematous lesion, right superior shoulder lateral neck area-1-1/2 cm raised irregular lesion consistent with a squamous cell carcinoma PROCEDURE: EXCISION OF SKIN LESION The risks, benefits and anticipated outcomes of the procedure, the risks and benefits of the alternatives to the procedure, and the roles and tasks of the personnel to be involved, were discussed with the patient, and the patient consents to the procedure and agrees to proceed. I verify that I personally obtained the patient's consent. Site #1 - right lateral neck The patient`s skin was prepped and draped in the usual fashion. A combination of Lidocaine and Marcaine was injected into the skin. An elliptical incision was made around the lesion and was removed in its entirety. The specimen measured 4 by 2 cm. This was sent to pathology. Suture marked the lateral margin of the excision The skin was then closed with interrupted 3-0 and 4-0 nylon sutures. The patient tolerated the procedure well. Site # 2, right chest The patient`s skin was prepped and draped in the usual fashion. A combination of Lidocaine and Marcaine was injected into the skin. An elliptical incision was made around the lesion and was removed in its entirety. The specimen measured 2 by 1 cm. This was sent to pathology. The skin was then closed with interrupted 4-0 nylon sutures. The patient tolerated the procedure well. Assessment IMPRESSION: Status post excision of a suspicious right neck lesion and chest lesion PLAN: If the patient notes any problems or signs of wound infections, the patient should contact me immediately. The patient is to follow up in approximately 12 days for suture removal. Diagnoses: (L98.9) Skin lesion (primary encounter diagnosis) Return to Clinic: The patient is instructed to follow- up with me in 12 days. MD Ashlyn Cotto LPN 2018 8:56 AM Signed INFORMED CONSENT Demetrio Kaiser Medical Record: [id number] Procedure:excision right shoulder and right anterior chest lesion The risks, benefits and anticipated outcomes of the procedure, the risks and benefits of the alternatives to the procedure and the roles and tasks of the personnel to be involved were discussed with the patient and the patient consents to the procedure and agrees to proceed. I verify that I personally obtained Demetrio Kaiser's consent. Ashlyn Centeno LPN 2018 8:36 AM Dept of GENERAL SURGERY UNIVERSAL PROTOCOL / SAFETY CHECKLIST Procedure to be performed: excision right shoulder and right anterior chest lesion Sign in Communication: Completed Time Out: Team Confirms the Correct Patient, Correct Procedure, Correct Site and Site Marking, Correct Position (if applicable), Prep and Dry Time (if applicable). Time: 837 am Affirmation of Time Out: YES Sign Out Discussion: Completed Ashlyn Centeno LPN 2018 8:42 AM Signed The following instructions are important for you related to your office visit today with the [facility]. Instructions After SKIN EXCISION-SUTURES You can remove the dressing in two days. If the dressing becomes soaked or had significant drainage, the dressing should be changed. If there is minor bleeding from this skin edge, you should hold pressure on the incision until the bleeding stops. If there is continued bleeding, you should contact our office immediately. You do not need to leave a dressing on the wound after two days. If the wound shows signs of redness, inflammation, or purulent drainage, you should contact our office immediately. You should keep the wound dry for the first two days. After that time, you may wash the wound with gentle soap and water. The wound should not be immersed in a pool, bathtub, or even hot tub. We prefer to check the incision and remove the stitches in our office when ready. Please make an appointment to return to our office in 1 weeks. Please do not remove the stitches yourself without approval from our office. If you note any additional difficulties, questions, or concerns, you should contact our office immediately @ [phone] and ask to be transferred to the General Surgery department. Referring Provider: SUMAN STERN III [[id number]] Allergies As of Date: 2018 Noted Allergy Reaction AUGMENTIN (AMOXICILLIN-POT CLAVUL*04/13/2010 CEFTRIAXONE 04/13/2010 CELECOXIB 04/18/2003 Comments: itch IMURAN (AZATHIOPRINE SODIUM) 04/13/2010 LODINE (ETODOLAC) 02/17/2012 16 - Unknown METHOTREXATE 04/18/2003 Comments: affected liver(cirrhosis) NSAIDS (NON-STEROIDAL ANTI-INFLAM*04/18/2003 Comments: Hives Patient tolerates aspirin PENICILLINS 04/18/2003 Comments: nauseated and vomiting PURINE ANTAGONIST ANTIMETABOLITE 04/18/2003 Comments: nausea and vomiting SULFAMETHOXAZOLE-TRIMETHOPRIM 02/17/2012 2 - Rash Date Reviewed: 2018 Reviewed by: Bobo Zhu - Fully Assessed Reason for Visit: Procedure [88] Primary Visit Diagnosis:Skin lesion [L98.9] Prescriptions as of 2018 Sig: WARFARIN 1 MG TABLET 0.5mg daily Friday through * LISINOPRIL 40 MG TABLET Take 1 tablet by mouth every * HYDROCODONE 7.5 MG-ACETAMINOP* Take 1 tablet by mouth three * LEVOTHYROXINE 75 MCG CAPSULE Take 75 mcg by mouth once deana* MOMETASONE 0.1 % TOPICAL CREAM Apply 1 application to affect* AMLODIPINE 5 MG TABLET Take 1 tablet by mouth once d* SIMVASTATIN 20 MG TABLET Take 1 tablet by mouth daily * PANTOPRAZOLE 40 MG TABLET,DEL* Take 40 mg by mouth once karyna* FERROUS SULFATE 325 MG (65 MG* Take 1 tablet by mouth twice * POLYETHYLENE GLYCOL 3350 17 G* 17 gram/8 oz water by mouth d* CYANOCOBALAMIN (VIT B-12) 1,0* Inject 1 mL intramuscularly o* HONEY 80 % TOPICAL GEL Use as directed Patient not taking: Reported on 09/08/2018 COMPOUNDED PRESCRIPTION MEDI-HONEY FOR PRESSURE ULCER* Patient not taking: Reported on 09/08/2018 NYSTATIN 100,000 UNIT/GRAM TO* Apply 1 application to affect* Patient not taking: Reported on 07/06/2018 Problem List As Of Date 2018 Noted Resolved IRON DEFIC ANEMIA NOS [D50.9] INVALID FOR* Carpal tunnel syndrome [G56.00] INVALID FOR*02/21/2015 OSTEOPOROSIS NOS [M81.0] More... 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 ASTHMA UNSPECIFIED [J45.909] INVALID FOR* Open wound of knee, leg (except thigh), and ank*INVALID FOR*02/21/2015 Primary localized osteoarthrosis, lower leg [M1*INVALID FOR*02/21/2015 ADJUSTMENT DISORDER WITH DEPRESSED MOOD [F43.21]INVALID FOR* S/P RIGHT HIP JOINT REPLACEMENT [Z96.649] INVALID FOR*02/21/2015 LT HIP, COMPLIC MEDICAL LOGISTICS SPECIALIST JOINT DEVICE [996.77] [T*INVALID FOR*02/17/2012 Priority: D More... RIGHT KNEE RHEUM ARTHRITIS [714.2] [M05.60] INVALID FOR* S/P RIGHT KNEE REPLACEMENT [V43.65] [Z96.659] INVALID FOR*12/31/2016 LT KNEE, INFEC/INFLAM-MEDICAL LOGISTICS SPECIALIST JOINT DEV [996.66]*INVALID FOR*02/21/2015 SUMMARY [V999.95] INVALID FOR* More... Abnormal Stress Test [R94.39] INVALID FOR* Priority: A More... Hypertension [I10] INVALID FOR* Priority: C More... Femoral DVT (deep venous thrombosis) (HCC) [I82*INVALID FOR*02/21/2015 More... 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 Rheumatoid arthritis involving multiple sites (*INVALID FOR* Chronic anticoagulation [Z79.01] INVALID FOR* C. difficile enteritis [A04.72] INVALID FOR*04/01/2017 USP prescription opiate use [Z79.891] INVALID FOR* Vitamin B12 deficiency [E53.8] INVALID FOR* Recurrent deep vein thrombosis (DVT) (HCC) [I82*INVALID FOR* Amputation status of lower extremity (HCC) [Z89*INVALID FOR* Anemia [D64.9] INVALID FOR* Cystitis [N30.90] INVALID FOR* Superficial injury of buttock without infection*INVALID FOR* Acute embolism and thrombosis of deep vein of l*INVALID FOR* Osteoarthritis of hip [M16.9] INVALID FOR* Other instructions from your clinician: The following instructions are important for you related to your office visit today with the [facility]. Instructions After SKIN EXCISION-SUTURES You can remove the dressing in two days. If the dressing becomes soaked or had significant drainage, the dressing should be changed. If there is minor bleeding from this skin edge, you should hold pressure on the incision until the bleeding stops. If there is continued bleeding, you should contact our office immediately. You do not need to leave a dressing on the wound after two days. If the wound shows signs of redness, inflammation, or purulent drainage, you should contact our office immediately. You should keep the wound dry for the first two days. After that time, you may wash the wound with gentle soap and water. The wound should not be immersed in a pool, bathtub, or even hot tub. We prefer to check the incision and remove the stitches in our office when ready. Please make an appointment to return to our office in 1 weeks. Please do not remove the stitches yourself without approval from our office. If you note any additional difficulties, questions, or concerns, you should contact our office immediately @ [phone] and ask to be transferred to the General Surgery department. Visit Notes: >> Ashlyn Centeno LPN Jennifer 2018 8:36 AM Status: Signed INFORMED CONSENT Demetrio Kaiser Medical Record: [id number] Procedure:excision right shoulder and right anterior chest lesion The risks, benefits and anticipated outcomes of the procedure, the risks and benefits of the alternatives to the procedure and the roles and tasks of the personnel to be involved were discussed with the patient and the patient consents to the procedure and agrees to proceed. I verify that I personally obtained Demetrio Kaiser's consent. Ashlyn Centeno LPN 2018 8:36 AM Dept of GENERAL SURGERY UNIVERSAL PROTOCOL / SAFETY CHECKLIST Procedure to be performed: excision right shoulder and right anterior chest lesion Sign in Communication: Completed Time Out: Team Confirms the Correct Patient, Correct Procedure, Correct Site and Site Marking, Correct Position (if applicable), Prep and Dry Time (if applicable). Time: 837 am Affirmation of Time Out: YES Sign Out Discussion: Completed Ashlyn Centeno LPN Encounter Status:Closed by BOBO ZHU MD on 10/06/18 SURGICAL PATHOLOGY Observed: 2018 Status: F Source: [place] 12:00 AM [facility] [place] REPOSITORY Specimen originated from [facility] Specimen #: [id number] Submitting Physician: BOBO ZHU ([id number]) FINAL DIAGNOSIS A. Skin, right upper shoulder lateral superior margin, excision: Basal cell carcinoma, nodular type, completely excised. B. 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 SDB/LW/gp 10/02/2018 Reagan D. Hinkle, M.D. (Electronic Signature) SPECIMEN SUBMITTED A: SKIN, RIGHT UPPER SHOULDER LATERAL SUPERIOR MARGIN, EXCISION B: SKIN, RIGHT UPPER CHEST, EXCISION CLINICAL DATA SKIN LESION GROSS DESCRIPTION A. Received in formalin is an oriented elliptical segment of skin and subcutaneous tissue measuring 2.4 x 1.4 x 0.9 cm. A suture is noted and is designated at the 12:00 tip. The skin surface demonstrates an irregular frazier-brown severely elevated area measuring 1.1 x 1.4 cm, and extends to both margins. The 3:00 margin is inked orange, the 9:00 margin is inked blue, and the deep margin is inked black. The specimen is sectioned and totally submitted as follows: A1 12:00 tip, A2 6:00 tip, A3- A5 remainder of tissue. B. Received in formalin is an unoriented elliptical segment of skin and subcutaneous tissue measuring 1.4 x 0.7 x 0.6 cm. The skin surface demonstrates an irregular frazier elevated area measuring 1.1 x 0.7 cm, and extends to both margins. The margins are inked black. The specimen is sectioned and totally submitted as follows: B1 tips, B2-B3 remainder of tissue. Gross examination performed at [facility], [address] [place] [address] FFS 10/02/2018 2:31:33 AM Date of Report: 10/02/2018 Date of Procedure: 2018 Date of Receipt: 2018 Submitted by: BOBO ZHU ([id number]) Location: IN/OUT Diagnostic interpretation performed at [place] [address]. PROGRESS Observed: 09/20/2018 Status: COMPLETED Source: [place] 10:06 AM [facility] REPOSITORY HNO ID: [id number] Author: Bobo Zhu Service: (none) Author Type: Physician Type: Progress Notes Filed: 09/20/2018 10:09 AM Note Text: HISTORY AND PHYSICAL Demetrio A Kaiser 1935 REFERRING PHYSICIAN: Suman Stern III, MD CHIEF COMPLAINT: skin lesion HPI: The patient is a 82 year old female. She has a an erythematous skin lesion on her right anterior chest which is somewhat flat and on her right superior shoulder just lateral to the A 1-1/2 cm raised irregular lesion consistent with a skin cancer. The patient is currently on Coumadin for history of DVTs. 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 TTE 06/16 showed normal EF, 50-55%. 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 10/08/2010 - USP prescription opiate use 12/08/2017 - Osteoarthritis of hip - Osteoporosis, unspecified Osteoporosis - Other specified anemias - Peripheral vascular disease (HCC) - Pulmonary embolus (HCC) 07/04/2010 - Rheumatoid arthritis involving multiple sites (HCC) 10/10/2015 - Rheumatoid arthritis(714.0) - Unspecified hemorrhoids without mention of complication Hemorrhoids - Vitamin B12 deficiency 02/09/2018 OPERATIONS: PAST SURGICAL HISTORY Procedure Laterality Date - AMPUTATE LEG AT THIGH Left 02/2012 - CHOLECYSTECTOMY - COLONOSCOP W/ OR W/O [facility] SPEC 01-28-05 Colonoscopy-repeat in - COLONOSCOP W/ OR W/O [facility] SPEC 01/26/2018 normal colonoscopy - [facility]/BX 01/26/2018 duodenal AVM - non bleeding - EGD W/O OR W/BRUSH/WASH EGD - TOTAL HIP REPLACEMENT Hip replacement, total LEFT AND RIGHT - TOTAL KNEE REPLACEMENT Knee replacement, total BILATERAL CURRENT MEDICATIONS: Current Outpatient Prescriptions: warfarin (COUMADIN) 1 mg tablet 0.5mg daily Friday through Friday; no Coumadin on Sundays Disp: 30 tablet Rfl: 5 lisinopril (ZESTRIL, PRINIVIL) 40 mg tablet Take 1 tablet by mouth every morning. Disp: 90 tablet Rfl: 3 HYDROcodone-Acetaminophen (NORCO) 7.5-325 mg per tablet Take 1 tablet by mouth three times daily as needed for Pain for up to 30 days. Disp: 90 tablet Rfl: 0 Levothyroxine 75 mcg cap Take 75 mcg by mouth once daily. Disp: 90 capsule Rfl: 3 cyanocobalamin 1,000 mcg/mL soln Inject 1 mL intramuscularly once every month. Disp: 1 mL Rfl: 12 mometasone (ELOCON) 0.1 % cream Apply 1 application to affected area once daily. Disp: 30 g Rfl: 1 honey (MEDIHONEY, HONEY,) 80 % gel Use as directed (Patient not taking: Reported on 09/08/2018 ) Disp: 1 Tube Rfl: 5 COMPOUNDED PRESCRIPTION MEDI-HONEY FOR PRESSURE ULCER COCCYX AREA 1.5 OZ TUBE (Patient not taking: Reported on 09/08/2018 ) Disp: 1 Tube Rfl: 5 nystatin (NYSTOP) powder Apply 1 application to affected area twice daily. (Patient not taking: Reported on 07/06/2018 ) Disp: 60 g Rfl: 1 amLODIPine (NORVASC) 5 mg tablet Take 1 tablet by mouth once daily. Disp: 90 tablet Rfl: 3 simvastatin (ZOCOR) 20 mg tablet Take 1 tablet by mouth daily at bedtime. Disp: 90 tablet Rfl: [address] (PROTONIX) 40 mg tablet Take 40 mg by mouth once daily. Disp: Rfl: ferrous sulfate 325 mg (65 mg iron) tablet Take 1 tablet by mouth twice daily. Disp: 60 tablet Rfl: 11 polyethylene glycol 3350 (MIRALAX) 17 gram/dose powder 17 gram/8 oz water by mouth daily Disp: 1 Bottle Rfl: 0 No current facility-administered medications for this visit. ALLERGIES: Augmentin [Amoxicillin-Pot Clavulanate]; Ceftriaxone; Celecoxib; Imuran [Azathioprine Sodium]; Lodine [Etodolac]; Methotrexate; Nsaids (Non-Steroidal Anti-Inflammatory Drug); Penicillins; Purine Antagonist Antimetabolite; Sulfamethoxazole-Trimethoprim PERSONAL HISTORY: Social History Marital status: Spouse name: Years of education: Number of children: Social History Main Topics Smoking status: Never Smoker Smokeless tobacco: Never Used Alcohol use: No Drug use: No FAMILY HISTORY: FAMILY HISTORY Problem Relation Age of Onset - Hearing Loss Mother - Heart Father - Stroke Father - Cancer Sister SKIN - Cancer Brother SKIN - Diabetes Brother - Diabetes Sister - Stroke Brother - other (ASHD) Brother - Heart Other 2 nephews from heart disease - other (ASHD) Brother CABG 4 REVIEW OF SYMPTOMS: The review of systems data was entered by the nurse and reviewed by me There are no exam notes on file for this visit. PHYSICAL EXAMINATION: General: The patient is 82 year old female, well nourished, well hydrated in no acute distress. The patient is oriented to time, place, and person. VITALS: Blood pressure 112/50, pulse 76. There is no height or weight on file to calculate BMI. HEENT: Normal cephalic, ataumatic, pupils are equally round, sclera are anicteric, mucous membranes are moist, oropharynx is clear. Neck has no masses, asymmetry or lymphadenopathy. Thyroid is unremarkable. Respiratory: Clear to auscultation and percussion. Normal respiratory excursion and pattern. Cardiac: Examination is regular rate and rhythm. Abdominal exam: exam deferred Rectal exam: exam deferred Extremities: no clubbing, cyanosis or edema. No adenopathy. Other: Location: Chest-1 cm flat slightly erythematous lesion, right superior shoulder lateral neck area-1-1/2 cm raised irregular lesion consistent with a squamous cell carcinoma LABORATORY VALUES: As Noted RADIOLOGIC STUDIES: As Noted Assessment IMPRESSION: SKIN LESION - x 2, anticoagulation PLAN: Demetrio will return for excision of the skin lesion at a later date. The patient is instructed not to take Coumadin for 3 days prior to the procedure. Diagnoses: (L98.9) Skin lesion (primary encounter diagnosis) Return to Clinic: The patient is instructed to follow-up with me for excision of these 2 lesions. Bobo Zhu MD CNOV Observed: 09/18/2018 Status: COMPLETED Source: [place] 1:10 PM [facility] REPOSITORY Office Visit (GENSWS) DEMETRIO K[facility]IS[facility] ([id number]) 1935 F Date Time Provider Department 09/18/18 1:10 PM BOBO ZHU During your visit today, we recorded the following information about you: Pulse Blood pressure 76/minute 112/50 Bobo Zhu MD 09/18/2018 2:28 PM Addendum The following instructions are important for you related to your office visit today with the [facility]. INSTRUCTIONS FOR YOUR OFFICE PROCEDURE You should not take blood thinners starting 09/28. You should wear comfortable clothes for your procedure. Do not take any sedatives prior to your procedure. You'll be discharged home with postoperative instructions. Typically over the counter pain medications are all that are required following minor surgery. If you have any difficulties or concerns, contact our office immediately. If you note any additional difficulties, questions, or concerns, you should contact our office immediately @ [phone] and ask to be transferred to the General Surgery department. Bobo Zhu MD 09/20/2018 10:09 AM Signed HISTORY AND PHYSICAL Demetrio Sancheze 1935 REFERRING PHYSICIAN: Suman Stern III, MD CHIEF COMPLAINT: skin lesion HPI: The patient is a 82 year old female. She has a an erythematous skin lesion on her right anterior chest which is somewhat flat and on her right superior shoulder just lateral to the A 1-1/2 cm raised irregular lesion consistent with a skin cancer. The patient is currently on Coumadin for history of DVTs. 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 TTE 06/16 showed normal EF, 50-55%. 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 12/08/2017 - Osteoarthritis of hip - Osteoporosis, unspecified Osteoporosis - Other specified anemias - Peripheral vascular disease (HCC) - Pulmonary embolus (HCC) 07/04/2010 - Rheumatoid arthritis involving multiple sites (HCC) 10/10/2015 - Rheumatoid arthritis(714.0) - Unspecified hemorrhoids without mention of complication Hemorrhoids - Vitamin B12 deficiency 02/09/2018 OPERATIONS: PAST SURGICAL HISTORY Procedure Laterality Date - AMPUTATE LEG AT THIGH Left 02/2012 - CHOLECYSTECTOMY - COLONOSCOP W/ OR W/O [facility] SPEC 01-28-05 Colonoscopy-repeat in - COLONOSCOP W/ OR W/O [facility] SPEC 01/26/2018 normal colonoscopy - EGD W/O [facility] SPECIMEN W/BX 01/26/2018 duodenal AVM - non bleeding - EGD W/O OR W/BRUSH/WASH EGD - TOTAL HIP REPLACEMENT Hip replacement, total LEFT AND RIGHT - TOTAL KNEE REPLACEMENT Knee replacement, total BILATERAL CURRENT MEDICATIONS: Current Outpatient Prescriptions: warfarin (COUMADIN) 1 mg tablet 0.5mg daily Friday through Friday; no Coumadin on Sundays Disp: 30 tablet Rfl: 5 lisinopril (ZESTRIL, PRINIVIL) 40 mg tablet Take 1 tablet by mouth every morning. Disp: 90 tablet Rfl: 3 HYDROcodone-Acetaminophen (NORCO) 7.5-325 mg per tablet Take 1 tablet by mouth three times daily as needed for Pain for up to 30 days. Disp: 90 tablet Rfl: 0 Levothyroxine 75 mcg cap Take 75 mcg by mouth once daily. Disp: 90 capsule Rfl: 3 cyanocobalamin 1,000 mcg/mL soln Inject 1 mL intramuscularly once every month. Disp: 1 mL Rfl: 12 mometasone (ELOCON) 0.1 % cream Apply 1 application to affected area once daily. Disp: 30 g Rfl: 1 honey (MEDIHONEY, HONEY,) 80 % gel Use as directed (Patient not taking: Reported on 09/08/2018 ) Disp: 1 Tube Rfl: 5 COMPOUNDED PRESCRIPTION MEDI-HONEY FOR PRESSURE ULCER COCCYX AREA 1.5 OZ TUBE (Patient not taking: Reported on 09/08/2018 ) Disp: 1 Tube Rfl: 5 nystatin (NYSTOP) powder Apply 1 application to affected area twice daily. (Patient not taking: Reported on 07/06/2018 ) Disp: 60 g Rfl: 1 amLODIPine (NORVASC) 5 mg tablet Take 1 tablet by mouth once daily. Disp: 90 tablet Rfl: 3 simvastatin (ZOCOR) 20 mg tablet Take 1 tablet by mouth daily at bedtime. Disp: 90 tablet Rfl: [address] (PROTONIX) 40 mg tablet Take 40 mg by mouth once daily. Disp: Rfl: ferrous sulfate 325 mg (65 mg iron) tablet Take 1 tablet by mouth twice daily. Disp: 60 tablet Rfl: 11 polyethylene glycol 3350 (MIRALAX) 17 gram/dose powder 17 gram/8 oz water by mouth daily Disp: 1 Bottle Rfl: 0 No current facility-administered medications for this visit. ALLERGIES: Augmentin [Amoxicillin-Pot Clavulanate]; Ceftriaxone; Celecoxib; Imuran [Azathioprine Sodium]; Lodine [Etodolac]; Methotrexate; Nsaids (Non-Steroidal Anti-Inflammatory Drug); Penicillins; Purine Antagonist Antimetabolite; Sulfamethoxazole-Trimethoprim PERSONAL HISTORY: Social History Marital status: Spouse name: Years of education: Number of children: Social History Main Topics Smoking status: Never Smoker Smokeless tobacco: Never Used Alcohol use: No Drug use: No FAMILY HISTORY: FAMILY HISTORY Problem Relation Age of Onset - Hearing Loss Mother - Heart Father - Stroke Father - Cancer Sister SKIN - Cancer Brother SKIN - Diabetes Brother - Diabetes Sister - Stroke Brother - other (ASHD) Brother - Heart Other 2 nephews from heart disease - other (ASHD) Brother CABG 4 REVIEW OF SYMPTOMS: The review of systems data was entered by the nurse and reviewed by me There are no exam notes on file for this visit. PHYSICAL EXAMINATION: General: The patient is 82 year old female, well nourished, well hydrated in no acute distress. The patient is oriented to time, place, and person. VITALS: Blood pressure 112/50, pulse 76. There is no height or weight on file to calculate BMI. HEENT: Normal cephalic, ataumatic, pupils are equally round, sclera are anicteric, mucous membranes are moist, oropharynx is clear. Neck has no masses, asymmetry or lymphadenopathy. Thyroid is unremarkable. Respiratory: Clear to auscultation and percussion. Normal respiratory excursion and pattern. Cardiac: Examination is regular rate and rhythm. Abdominal exam: exam deferred Rectal exam: exam deferred Extremities: no clubbing, cyanosis or edema. No adenopathy. Other: Location: Chest-1 cm flat slightly erythematous lesion, right superior shoulder lateral neck area-1-1/2 cm raised irregular lesion consistent with a squamous cell carcinoma LABORATORY VALUES: As Noted RADIOLOGIC STUDIES: As Noted Assessment IMPRESSION: SKIN LESION - x 2, anticoagulation PLAN: Demetrio will return for excision of the skin lesion at a later date. The patient is instructed not to take Coumadin for 3 days prior to the procedure. Diagnoses: (L98.9) Skin lesion (primary encounter diagnosis) Return to Clinic: The patient is instructed to follow-up with me for excision of these 2 lesions. Bobo Zhu MD Referring Provider: SUMAN STERN III [[id number]] Allergies As of Date: 09/18/2018 Noted Allergy Reaction AUGMENTIN (AMOXICILLIN-POT CLAVUL*04/13/2010 CEFTRIAXONE 04/13/2010 CELECOXIB 04/18/2003 Comments: itch IMURAN (AZATHIOPRINE SODIUM) 04/13/2010 LODINE (ETODOLAC) 02/17/2012 16 - Unknown METHOTREXATE 04/18/2003 Comments: affected liver(cirrhosis) NSAIDS (NON-STEROIDAL ANTI-INFLAM*04/18/2003 Comments: Hives Patient tolerates aspirin PENICILLINS 04/18/2003 Comments: nauseated and vomiting PURINE ANTAGONIST ANTIMETABOLITE 04/18/2003 Comments: nausea and vomiting SULFAMETHOXAZOLE-TRIMETHOPRIM 02/17/2012 2 - Rash Date Reviewed: 09/18/2018 Reviewed by: Fredy Sawyer LPN - Fully Assessed Reason for Visit: Consult [173] Cmt: Consult Skin lesion Primary Visit Diagnosis:Skin lesion [L98.9] Prescriptions as of 09/18/2018 Sig: WARFARIN 1 MG TABLET 0.5mg daily Friday through * LISINOPRIL 40 MG TABLET Take 1 tablet by mouth every * HYDROCODONE 7.5 MG-ACETAMINOP* Take 1 tablet by mouth three * LEVOTHYROXINE 75 MCG CAPSULE Take 75 mcg by mouth once deana* CYANOCOBALAMIN (VIT B-12) 1,0* Inject 1 mL intramuscularly o* MOMETASONE 0.1 % TOPICAL CREAM Apply 1 application to affect* HONEY 80 % TOPICAL GEL Use as directed Patient not taking: Reported on 09/08/2018 COMPOUNDED PRESCRIPTION MEDI-HONEY FOR PRESSURE ULCER* Patient not taking: Reported on 09/08/2018 NYSTATIN 100,000 UNIT/GRAM TO* Apply 1 application to affect* Patient not taking: Reported on 07/06/2018 AMLODIPINE 5 MG TABLET Take 1 tablet by mouth once d* SIMVASTATIN 20 MG TABLET Take 1 tablet by mouth daily * PANTOPRAZOLE 40 MG TABLET,DEL* Take 40 mg by mouth once karyna* FERROUS SULFATE 325 MG (65 MG* Take 1 tablet by mouth twice * POLYETHYLENE GLYCOL 3350 17 G* 17 gram/8 oz water by mouth d* Problem List As Of Date 09/18/2018 Noted Resolved IRON DEFIC ANEMIA NOS [D50.9] INVALID FOR* Carpal tunnel syndrome [G56.00] INVALID FOR*02/21/2015 OSTEOPOROSIS NOS [M81.0] More... 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 ASTHMA UNSPECIFIED [J45.909] INVALID FOR* Open wound of knee, leg (except thigh), and ank*INVALID FOR*02/21/2015 Primary localized osteoarthrosis, lower leg [M1*INVALID FOR*02/21/2015 ADJUSTMENT DISORDER WITH DEPRESSED MOOD [F43.21]INVALID FOR* S/P RIGHT HIP JOINT REPLACEMENT [Z96.649] INVALID FOR*02/21/2015 LT HIP, COMPLIC MEDICAL LOGISTICS SPECIALIST JOINT DEVICE [996.77] [T*INVALID FOR*02/17/2012 Priority: D More... RIGHT KNEE RHEUM ARTHRITIS [714.2] [M05.60] INVALID FOR* S/P RIGHT KNEE REPLACEMENT [V43.65] [Z96.659] INVALID FOR*12/31/2016 LT KNEE, INFEC/INFLAM-MEDICAL LOGISTICS SPECIALIST JOINT DEV [996.66]*INVALID FOR*02/21/2015 SUMMARY [V999.95] INVALID FOR* More... Abnormal Stress Test [R94.39] INVALID FOR* Priority: A More... Hypertension [I10] INVALID FOR* Priority: C More... Femoral DVT (deep venous thrombosis) (HCC) [I82*INVALID FOR*02/21/2015 More... 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 Rheumatoid arthritis involving multiple sites (*INVALID FOR* Chronic anticoagulation [Z79.01] INVALID FOR* C. difficile enteritis [A04.72] INVALID FOR*04/01/2017 USP prescription opiate use [Z79.891] INVALID FOR* Vitamin B12 deficiency [E53.8] INVALID FOR* Recurrent deep vein thrombosis (DVT) (HCC) [I82*INVALID FOR* Amputation status of lower extremity (HCC) [Z89*INVALID FOR* Anemia [D64.9] INVALID FOR* Cystitis [N30.90] INVALID FOR* Superficial injury of buttock without infection*INVALID FOR* Acute embolism and thrombosis of deep vein of l*INVALID FOR* Osteoarthritis of hip [M16.9] INVALID FOR* Other instructions from your clinician: The following instructions are important for you related to your office visit today with the [facility]. INSTRUCTIONS FOR YOUR OFFICE PROCEDURE You should not take blood thinners starting 09/28. You should wear comfortable clothes for your procedure. Do not take any sedatives prior to your procedure. You'll be discharged home with postoperative instructions. Typically over the counter pain medications are all that are required following minor surgery. If you have any difficulties or concerns, contact our office immediately. If you note any additional difficulties, questions, or concerns, you should contact our office immediately @ [phone] and ask to be transferred to the General Surgery department. Disposition: Return in 2 weeks (on 2018). Follow-up and Disposition History Recorded Encounter Status:Closed by BOBO ZHU MD on 09/20/18 PROGRESS Observed: 09/10/2018 Status: COMPLETED Source: [place] 7:12 PM [facility] REPOSITORY HNO ID: [id number] Author: Suman Stern III Service: (none) Author Type: Physician Type: Progress Notes Filed: 09/10/2018 7:12 PM Note Text: The iron level is a little low so continue with the present dose of iron 125 mg twice per day. The vitamin B12 level is high, so I recommend reducing vitamin B-12 injections 1000 mcg every other month. You still have a mild anemia which should improve with iron treatment. The other lab results are okay. Suman Stern III, MD, FAAFP CBC Collected: 09/08/2018 Status: F Source: [place] 3:28 PM [facility] REPOSITORY TYPE CODE TESTS RESULT OUT OF REFERENCE UNITS RANGE LAB WBC 3.70-11.00 k/uL WBC 7.08 LAB RBC 3.90-5.20 m/uL Low RBC 3.89 LAB HGB 11.5-15.5 g/dL Low Hemoglobin 10.0 LAB HCT 36.0-46.0 % Low Hematocrit 33.1 LAB MCV 80.0-100.0 fL MCV 85.1 LAB MCH 26.0-34.0 pG Low MCH 25.7 LAB MCHC 30.5-36.0 g/dL Low MCHC 30.2 LAB RDWCV 11.5-15.0 % RDW-CV High 17.2 LAB PLTCT 150-400 k/uL Platelet High Count 651 LAB MPV 9.0-12.7 fL MPV 9.2 LAB ABSNUC <0.01 k/uL Absolute nRBC <0.01 Performed By: #### IRON, CMP, CBC, B12 #### [facility] [address] [place], [place] [address] VITAMIN B12 Collected: 09/08/2018 Status: F Source: [place] 3:28 PM [facility] REPOSITORY TYPE CODE TESTS RESULT OUT OF REFERENCE UNITS RANGE LAB B12 232-1245 pg/mL High Vitamin B12 1511 Performed By: #### IRON, CMP, CBC, B12 #### [facility] [address] [place] [id number] COMP METABOLIC PANEL Collected: 09/08/2018 Status: F Source: [place] 3:28 PM [facility] REPOSITORY TYPE CODE TESTS RESULT OUT OF REFERENCE UNITS RANGE LAB TP 6.3-8.0 g/dL Protein, Total 7.5 LAB ALB 3.9-4.9 g/dL Low Albumin 3.3 LAB CA 8.5-10.2 mg/dL Calcium, Total 8.9 LAB TBIL 0.2-1.3 mg/dL Bilirubin, Total 0.3 LAB ALKP 34-123 U/L Alkaline Phosphatase 103 LAB AST 13-35 U/L Low AST 12 LAB GLU 74-99 mg/dL Low Glucose 66 Result Comment: The [place] [employer] Association (ADA) provides guidance for cutoff values for fasting glucose and random glucose. The ADA defines fasting as no caloric intake for at least 8 hours. Fas ting plasma glucose results between 100 to 125 mg/dL indicate increased risk for diabetes (prediabetes). Fasting plasma glucose results greater than or equal to 126 mg/dL meet the criteria for diagnosis of diabetes. In the absence of unequivocal hyperglycemia, results should be confirmed by repeat testing. In a patient with classic symptoms of hyperglycemia or hyperglycemic crisis, random plasma glucose results greater than or equal to 200 mg/dL meet the criteria for diagnosis of diabetes. Reference: Standards of Medical Care in Diabetes 2016, [place] [employer] Association. Diabetes Care. 2016.39(Suppl 1). LAB BUN 7-21 mg/dL BUN 13 LAB CRET 0.58-0.96 mg/dL Creatinine 0.58 LAB NA 136-144 mmol/L Sodium 141 LAB K 3.7-5.1 mmol/L Potassium 3.7 LAB CL 97-105 mmol/L Chloride 97 LAB CO2 22-30 mmol/L CO2 27 LAB AGAP 9-18 mmol/L Anion Gap 17 LAB ALT 7-38 U/L ALT Low 5 LAB GFRAA eGFR- Amer. >60 LAB GFRNAA . eGFR-All Other Races >60 Result Comment: eGFR (Estimated GFR) Units of measure: mL/min/1.73 meters squared eGFR is derived from the reexpressed MDRD Study equation using the following parameters: serum creatinine, age, gender and race. The creatinine assay has been calibrated to be traceable to IDMS. An eGFR <60 mL/min/1.73m2 for >3 months is consistent with chronic kidney disease. Refer to KDOQI guidelines for clinical interpretation. In patients with unstable renal function, e.g. those with acute kidney injury, the eGFR may not accurately reflect actual GFR. Performed By: #### IRON, CMP, CBC, B12 #### [facility] [address] [place], [place] [address] IRON AND TIBC Collected: 09/08/2018 Status: F Source: [place] 3:28 PM [facility] REPOSITORY TYPE CODE TESTS RESULT OUT OF REFERENCE UNITS RANGE LAB IRN 41-186 ug/dL Low Iron 16 LAB TIBC 232-386 ug/dL Low TIBC 186 LAB SAT 15-57 % Low Transferrin Saturatn 9 Performed By: #### IRON, CMP, CBC, B12 #### [facility] [address] [place], [place] [address] PROGRESS Observed: 09/08/2018 Status: COMPLETED Source: [place] 2:28 PM [facility] REPOSITORY HNO ID: [id number] Author: Suman Stern III Service: (none) Author Type: Physician Type: Progress Notes Filed: 09/08/2018 6:14 PM Note Text: SUBJECTIVE: This is a 82 year old female that is here today for 1. flu shot 2. arthritis pain--fair control with norco helps for 5 hrs. One dose upon awakening, and one at bedtime. Tylenol during daytime. Using norco when in transit. No constipation. 3. hypertension--tolerates medication well 4. hx of vit B12 deficiency 5. poor diet. Eats little. Eating 1 protein bar /day 6. on palliative care for on-going wound care. Visiting nurse weekly==wound looking better. Tried wound vac, stem cells. 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 TTE 06/16 showed normal EF, 50-55%. 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 FLUoxetine (PROZAC) 20 mg capsule Take 1 capsule by mouth once daily. Levothyroxine 75 mcg cap Take 75 mcg by mouth once daily. warfarin (COUMADIN) 1 mg tablet 0.5mg daily cyanocobalamin 1,000 mcg/mL soln Inject 1 mL intramuscularly once every month. mometasone (ELOCON) 0.1 % cream Apply 1 application to affected area once daily. amLODIPine (NORVASC) 5 mg tablet Take 1 tablet by mouth once daily. simvastatin (ZOCOR) 20 mg tablet Take 1 tablet by mouth daily at bedtime. pantoprazole DR (PROTONIX) 40 mg tablet Take 40 mg by mouth once daily. ferrous sulfate 325 mg (65 mg iron) tablet Take 1 tablet by mouth twice daily. polyethylene glycol 3350 (MIRALAX) 17 gram/dose powder 17 gram/8 oz water by mouth daily HYDROcodone-Acetaminophen (NORCO) 7.5-325 mg per tablet Take 1 tablet by mouth every 8 hours as needed for Pain for up to 30 days. honey (MEDIHONEY, HONEY,) 80 % gel Use as directed (Patient not taking: Reported on 09/08/2018 ) COMPOUNDED PRESCRIPTION MEDI-HONEY FOR PRESSURE ULCER COCCYX AREA 1.5 OZ TUBE (Patient not taking: Reported on 09/08/2018 ) nystatin (NYSTOP) powder Apply 1 application to affected area twice daily. (Patient not taking: Reported on 07/06/2018 ) No current facility-administered medications on file prior to visit. FAMILY HISTORY Problem Relation Age of Onset - Hearing Loss Mother - Heart Father - Stroke Father - Cancer Sister SKIN - Cancer Brother SKIN - Diabetes Brother - Diabetes Sister - Stroke Brother - other (ASHD) Brother - Heart Other 2 nephews from heart disease - other (ASHD) Brother CABG 4 Social History Substance Use Topics - Smoking status: Never Smoker - Smokeless tobacco: Never Used - Alcohol use No BP 110/64 (BP Site: Left Arm, BP Position: Sitting, BP Cuff Size: Small Adult) Pulse 80 Temp 36.7 ?C (98 ?F) (Left Tympanic) Resp 16 . OBJECTIVE: APPEARANCE Well appearing, alert, in no acute distress, well-hydrated, well nourished. and Missing part of left lower extremity and in a power scooter NECK Supple, no adenopathy; thyroid symmetric, normal size, no bruits HEART RRR with normal S1 and S2, no murmurs, no gallops, no JVD appreciated LUNG clear to auscultation SKIN 7 mm round, excoriated, erythematous, inflamed maculopapular lesion right subclavian area. 12 mm inflamed, excoriated, maculopapular lesion top of right shoulder. ASSESSMENT: hypertension--at goal RA-- ch. pain due to RA vit. B12 deficiency ch pain due to RA probable skin cancer, R upper anterior chest wall and top R shoulder PLAN: healthy diet and continue palliative care and home nursing continue hydrocodone 7.5mg three times/day as needed for pain labs as ordered same other medications surgical referral for skin lesion excision Suman Stern III MD flu shot given PDMP website checked and validated. All prescriptions have been APPROPRIATELY filled. No suspicious activity was identified. No controlled substance prescriptions were reported. 09/08/2018 by JOBY Emery MD, III MD PROGRESS Observed: 09/08/2018 Status: COMPLETED Source: [place] 1:54 PM [facility] REPOSITORY O ID: [id number] Author: Savanna Naik LPN Service: (none) Author Type: (none) Type: Progress Notes Filed: 09/08/2018 6:14 PM Note Text: 82 year old female here for INACTIVATED INFLUENZA VACCINE. [id number] Season Patient is identified by name and date of : Yes [] CONTRAINDICATIONS color enhanced section Age less than 6 months? No Allergy to eggs, chicken, chicken feathers, or chicken dander? No Allergy to thimerosal (a preservative) or formaldehyde, gelatin? No History of severe reaction to any vaccine component or a previous dose of influenza vaccination? No History of Guillain-[place] Syndrome within 6 weeks after a previous influenza vaccine? No Patient is not moderately or severely ill? No Current temperature greater or equal to 100.4F? No History of Bone Marrow Transplant prior 6 months or solid organ transplant in the past 3 months ? No History of fainting after a prior injection or medical procedure? No- ? If patient has fainted in the past, the CDC recommends sitting or lying down for 15 minutes after the vaccination. [] VERIFICATION color enhanced section Was the answer Yes for any of the above contraindications? No contraindications present. Acceptable to proceed with vaccine. Patient/guardian agrees the above answers are true to the best of their knowledge? Yes Flu vaccine information sheet given? Yes See immunization activity in [facility] for details of immunizations adminstered today. Patient age: [age] year old For The [id number] Flu Season 6-35 months old: Fluzone 0.25 ml - IM (Preservative Free) 3 years of age: Fluzone 0.5 ml - IM (Preservative Free) 3 years and older: Fluzone 0.5 ml- IM-(with Preservatives) 65+ years old: 2-49 years old Fluzone High-Dose 0.5 ml - IM (Preservative Free) FLUMIST- intranasal REMEMBER: If patient is less than 9 years of age and this is the first vaccine of Influenza to be received in any flu season, they should receive a second dose in one months time. CNOV Observed: 09/08/2018 Status: COMPLETED Source: [place] 1:20 PM [facility] REPOSITORY Office Visit (FAMPWS) DEMETRIO K[facility] ([id number]) 1935 F Date Time Provider Department 09/08/18 1:20 PM SUMAN STERN III [facility] During your visit today, we recorded the following information about you: Temperature Pulse Respiration Blood pressure 98 degrees 80/minute 16/minute 110/64 Savanna Naik LPN 09/08/2018 6:14 PM Signed 82 year old female here for INACTIVATED INFLUENZA VACCINE. [id number] Season Patient is identified by name and date of : Yes [] CONTRAINDICATIONS color enhanced section Age less than 6 months? No Allergy to eggs, chicken, chicken feathers, or chicken dander? No Allergy to thimerosal (a preservative) or formaldehyde, gelatin? No History of severe reaction to any vaccine component or a previous dose of influenza vaccination? No History of Guillain-[place] Syndrome within 6 weeks after a previous influenza vaccine? No Patient is not moderately or severely ill? No Current temperature greater or equal to 100.4F? No History of Bone Marrow Transplant prior 6 months or solid organ transplant in the past 3 months ? No History of fainting after a prior injection or medical procedure? No- ? If patient has fainted in the past, the CDC recommends sitting or lying down for 15 minutes after the vaccination. [] VERIFICATION color enhanced section Was the answer Yes for any of the above contraindications? No contraindications present. Acceptable to proceed with vaccine. Patient/guardian agrees the above answers are true to the best of their knowledge? Yes Flu vaccine information sheet given? Yes See immunization activity in [facility] for details of immunizations adminstered today. Patient age: [age] year old For The 3798-4200 Flu Season 6-35 months old: Fluzone 0.25 ml - IM (Preservative Free) 3 years of age: Fluzone 0.5 ml - IM (Preservative Free) 3 years and older: Fluzone 0.5 ml- IM-(with Preservatives) 65+ years old: 2-49 years old Fluzone High-Dose 0.5 ml - IM (Preservative Free) FLUMIST- intranasal REMEMBER: If patient is less than 9 years of age and this is the first vaccine of Influenza to be received in any flu season, they should receive a second dose in one months time. Suman Stern III MD 09/08/2018 6:14 PM Signed SUBJECTIVE: This is a 82 year old female that is here today for 1. flu shot 2. arthritis pain--fair control with norco helps for 5 hrs. One dose upon awakening, and one at bedtime. Tylenol during daytime. Using norco when in transit. No constipation. 3. hypertension--tolerates medication well 4. hx of vit B12 deficiency 5. poor diet. Eats little. Eating 1 protein bar /day 6. on palliative care for on-going wound care. Visiting nurse weekly==wound looking better. Tried wound vac, stem cells. 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 TTE 06/16 showed normal EF, 50-55%. 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 10/08/2010 - USP prescription opiate use 12/08/2017 - Osteoarthritis of hip - Osteoporosis, unspecified Osteoporosis - Other specified anemias - Peripheral vascular disease (HCC) - Pulmonary embolus (HCC) 07/04/2010 - Rheumatoid arthritis involving multiple sites (HCC) 10/10/2015 - Rheumatoid arthritis(714.0) - Unspecified hemorrhoids without mention of complication Hemorrhoids - Vitamin B12 deficiency 02/09/2018 Current Outpatient Prescriptions on File Prior to Visit: lisinopril (ZESTRIL, PRINIVIL) 40 mg tablet Take 1 tablet by mouth every morning. FLUoxetine (PROZAC) 20 mg capsule Take 1 capsule by mouth once daily. Levothyroxine 75 mcg cap Take 75 mcg by mouth once daily. warfarin (COUMADIN) 1 mg tablet 0.5mg daily cyanocobalamin 1,000 mcg/mL soln Inject 1 mL intramuscularly once every month. mometasone (ELOCON) 0.1 % cream Apply 1 application to affected area once daily. amLODIPine (NORVASC) 5 mg tablet Take 1 tablet by mouth once daily. simvastatin (ZOCOR) 20 mg tablet Take 1 tablet by mouth daily at bedtime. pantoprazole DR (PROTONIX) 40 mg tablet Take 40 mg by mouth once daily. ferrous sulfate 325 mg (65 mg iron) tablet Take 1 tablet by mouth twice daily. polyethylene glycol 3350 (MIRALAX) 17 gram/dose powder 17 gram/8 oz water by mouth daily HYDROcodone-Acetaminophen (NORCO) 7.5-325 mg per tablet Take 1 tablet by mouth every 8 hours as needed for Pain for up to 30 days. honey (MEDIHONEY, HONEY,) 80 % gel Use as directed (Patient not taking: Reported on 09/08/2018 ) COMPOUNDED PRESCRIPTION MEDI-HONEY FOR PRESSURE ULCER COCCYX AREA 1.5 OZ TUBE (Patient not taking: Reported on 09/08/2018 ) nystatin (NYSTOP) powder Apply 1 application to affected area twice daily. (Patient not taking: Reported on 07/06/2018 ) No current facility-administered medications on file prior to visit. FAMILY HISTORY Problem Relation Age of Onset - Hearing Loss Mother - Heart Father - Stroke Father - Cancer Sister SKIN - Cancer Brother SKIN - Diabetes Brother - Diabetes Sister - Stroke Brother - other (ASHD) Brother - Heart Other 2 nephews from heart disease - other (ASHD) Brother CABG 4 Social History Substance Use Topics - Smoking status: Never Smoker - Smokeless tobacco: Never Used - Alcohol use No BP 110/64 (BP Site: Left Arm, BP Position: Sitting, BP Cuff Size: Small Adult) Pulse 80 Temp 36.7 ?C (98 ?F) (Left Tympanic) Resp 16 . OBJECTIVE: APPEARANCE Well appearing, alert, in no acute distress, well- hydrated, well nourished. and Missing part of left lower extremity and in a power scooter NECK Supple, no adenopathy; thyroid symmetric, normal size, no bruits HEART RRR with normal S1 and S2, no murmurs, no gallops, no JVD appreciated LUNG clear to auscultation SKIN 7 mm round, excoriated, erythematous, inflamed maculopapular lesion right subclavian area. 12 mm inflamed, excoriated, maculopapular lesion top of right shoulder. ASSESSMENT: hypertension--at goal RA-- ch. pain due to RA vit. B12 deficiency ch pain due to RA probable skin cancer, R upper anterior chest wall and top R shoulder PLAN: healthy diet and continue palliative care and home nursing continue hydrocodone 7.5mg three times/day as needed for pain labs as ordered same other medications surgical referral for skin lesion excision Suman Stern III MD flu shot given PDMP website checked and validated. All prescriptions have been APPROPRIATELY filled. No suspicious activity was identified. No controlled substance prescriptions were reported. 09/08/2018 by JOBY Emery MD, III MD Frank A Cebul, III MD 09/08/2018 2:49 PM Signed PLAN: healthy diet and continue palliative care and home nursing continue hydrocodone 7.5mg three times/day as needed for pain labs as ordered same other medications surgical referral for skin lesion excision Suman Stern III MD flu shot given Referring Provider: SUMAN STERN III [[id number]] Allergies As of Date: 09/08/2018 Noted Allergy Reaction AUGMENTIN (AMOXICILLIN-POT CLAVUL*04/13/2010 CEFTRIAXONE 04/13/2010 CELECOXIB 04/18/2003 Comments: itch IMURAN (AZATHIOPRINE SODIUM) 04/13/2010 LODINE (ETODOLAC) 02/17/2012 16 - Unknown METHOTREXATE 04/18/2003 Comments: affected liver(cirrhosis) NSAIDS (NON-STEROIDAL ANTI-INFLAM*04/18/2003 Comments: Hives Patient tolerates aspirin PENICILLINS 04/18/2003 Comments: nauseated and vomiting PURINE ANTAGONIST ANTIMETABOLITE 04/18/2003 Comments: nausea and vomiting SULFAMETHOXAZOLE-TRIMETHOPRIM 02/17/2012 2 - Rash Date Reviewed: 09/08/2018 Reviewed by: Savanna Naik LPN - Fully Assessed Reason for Visit: Imm/Inj [58] Cmt: Flu Vaccine Recheck [92] Cmt: 3 month follow up medications and arthritis Reason For Visit History Recorded Primary Visit Diagnosis:Essential hypertension [I10] Other Visit Diagnoses:Need for vaccination [Z23] Iron deficiency anemia, unspecified iron deficiency anemia type [D50.9] Hypothyroidism, unspecified type [E03.9] Rheumatoid arthritis involving multiple sites, unspecified rheumatoid factor presence (HCC) [M06.9] Vitamin B12 deficiency [E53.8] USP prescription opiate use [Z79.891] Superficial injury of buttock without infection, sequela [S30.91XS] Skin lesion [L98.9] Order(s):INFLUENZA SEASONAL HIGH DOSE AGE 65+ [94048KPT] Order #: [id number] lisinopril (ZESTRIL, PRINIVIL) 40 mg tabletTake 1 tablet by mouth every morning.Disp: 90 tabletRfl: 3 IRON + TIBC [SQIRON] Order #: [id number] FUTURE COMP METABOLIC PANEL [SQCMP] Order #: [id number] FUTURE CBC [SQCBC] Order #: [id number] FUTURE VITAMIN B12 BLOOD [SQB12] Order #: [id number] FUTURE HYDROcodone-Acetaminophen (NORCO) 7.5-325 mg per tabletTake 1 tablet by mouth three times daily as needed for Pain for up to 30 days.Disp: 90 tabletRfl: 0 CONSULT TO GENERAL SURGERY [9012] Order #: [id number]: 1 Prescriptions as of 09/08/2018 Sig: LISINOPRIL 40 MG TABLET Take 1 tablet by mouth every * LEVOTHYROXINE 75 MCG CAPSULE Take 75 mcg by mouth once deana* WARFARIN 1 MG TABLET 0.5mg daily CYANOCOBALAMIN (VIT B-12) 1,0* Inject 1 mL intramuscularly o* MOMETASONE 0.1 % TOPICAL CREAM Apply 1 application to affect* AMLODIPINE 5 MG TABLET Take 1 tablet by mouth once d* SIMVASTATIN 20 MG TABLET Take 1 tablet by mouth daily * PANTOPRAZOLE 40 MG TABLET,DEL* Take 40 mg by mouth once karyna* FERROUS SULFATE 325 MG (65 MG* Take 1 tablet by mouth twice * POLYETHYLENE GLYCOL 3350 17 G* 17 gram/8 oz water by mouth d* HYDROCODONE 7.5 MG-ACETAMINOP* Take 1 tablet by mouth three * HONEY 80 % TOPICAL GEL Use as directed Patient not taking: Reported on 09/08/2018 COMPOUNDED PRESCRIPTION MEDI-HONEY FOR PRESSURE ULCER* Patient not taking: Reported on 09/08/2018 NYSTATIN 100,000 UNIT/GRAM TO* Apply 1 application to affect* Patient not taking: Reported on 07/06/2018 Problem List As Of Date 09/08/2018 Noted Resolved IRON DEFIC ANEMIA NOS [D50.9] INVALID FOR* Carpal tunnel syndrome [G56.00] INVALID FOR*02/21/2015 OSTEOPOROSIS NOS [M81.0] More... 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 ASTHMA UNSPECIFIED [J45.909] INVALID FOR* Open wound of knee, leg (except thigh), and ank*INVALID FOR*02/21/2015 Primary localized osteoarthrosis, lower leg [M1*INVALID FOR*02/21/2015 ADJUSTMENT DISORDER WITH DEPRESSED MOOD [F43.21]INVALID FOR* S/P RIGHT HIP JOINT REPLACEMENT [Z96.649] INVALID FOR*02/21/2015 LT HIP, COMPLIC MEDICAL LOGISTICS SPECIALIST JOINT DEVICE [996.77] [T*INVALID FOR*02/17/2012 Priority: D More... RIGHT KNEE RHEUM ARTHRITIS [714.2] [M05.60] INVALID FOR* S/P RIGHT KNEE REPLACEMENT [V43.65] [Z96.659] INVALID FOR*12/31/2016 LT KNEE, INFEC/INFLAM-MEDICAL LOGISTICS SPECIALIST JOINT DEV [996.66]*INVALID FOR*02/21/2015 SUMMARY [V999.95] INVALID FOR* More... Abnormal Stress Test [R94.39] INVALID FOR* Priority: A More... Hypertension [I10] INVALID FOR* Priority: C More... Femoral DVT (deep venous thrombosis) (HCC) [I82*INVALID FOR*02/21/2015 More... 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 Rheumatoid arthritis involving multiple sites (*INVALID FOR* Chronic anticoagulation [Z79.01] INVALID FOR* C. difficile enteritis [A04.72] INVALID FOR*04/01/2017 USP prescription opiate use [Z79.891] INVALID FOR* Vitamin B12 deficiency [E53.8] INVALID FOR* Recurrent deep vein thrombosis (DVT) (HCC) [I82*INVALID FOR* Amputation status of lower extremity (HCC) [Z89*INVALID FOR* Anemia [D64.9] INVALID FOR* Cystitis [N30.90] INVALID FOR* Superficial injury of buttock without infection*INVALID FOR* Acute embolism and thrombosis of deep vein of l*INVALID FOR* Osteoarthritis of hip [M16.9] INVALID FOR* Other instructions from your clinician: PLAN: healthy diet and continue palliative care and home nursing continue hydrocodone 7.5mg three times/day as needed for pain labs as ordered same other medications surgical referral for skin lesion excision Smuan Stern III MD flu shot given Prescriptions ordered this encounter Disp Refills Start End LISINOPRIL 40 MG TABLET 90 t* 3 09/08/2018 Route: ORAL Sig: Take 1 tablet by mouth every morning. HYDROCODONE 7.5 MG-ACETAMINOPHEN 325* 90 t* 0 09/08/2018 10/08/2018 Class: Print RX Route: ORAL Sig: Take 1 tablet by mouth three times daily as needed for Pain for up to 30 days. Medications Discontinued During This Encounter lisinopril (ZESTRIL, PRINIVIL) 40 mg* 90 t* 1 06/08/2018 09/08/2018 Cmt: This prescription was filled on 06/08/2018. Any refills authorized will be placed on file. Route: ORAL Sig: Take 1 tablet by mouth every morning. Disc: Reason for discontinue is not on file. HYDROcodone-Acetaminophen (NORCO) 7.* 90 t* 0 07/06/2018 09/08/2018 Class: Print RX Route: ORAL Sig: Take 1 tablet by mouth every 8 hours as needed for Pain for up to 30 days. Disc: Reason for discontinue is not on file. FLUoxetine (PROZAC) 20 mg capsule 90 c* 3 06/08/2018 09/08/2018 Route: ORAL Sig: Take 1 capsule by mouth once daily. Disc: Discontinued by Patient Encounter Status:Closed by SUMAN STERN III, MD on 09/08/18 Observed: 08/13/2018 Status: F Source: DAVE CULTURE, DEEP WOUND 1:30 PM [facility] REPOSITORY Comments: COCCYX Gram Stain Gram Stain Red Cell Stroma No organisms seen No cells seen Wound Culture No growth aerobically. Cult, Anaerobic No anaerobic bacteria isolated. Performed By: #### M100.1500 #### [facility] [address] [place], [address] [facility] Observed: 08/11/2018 Status: COMPLETED Source: [place] 12:00 AM [facility] REPOSITORY Telephone [facility] DEMETRIO [facility] ([id number]) 1935 F Date Time Provider Department 08/11/18 [facility] During your visit today, we recorded the following information about you: Kelsie Thompson CMA, MA 08/11/2018 1:07 PM Signed Current INR 3.0 on 08/11/2018 Current dose of coumadin is 2.5 mg daily Previous INR (date and result) 2.0 on 08/04/2018 DORIS Vela CMA, MA 08/11/2018 1:09 PM Signed CORRECTION: 0.5 mg daily DORIS Vela III MD 08/11/2018 1:19 PM Signed Same coumadin dose. Recheck INR in 1 wk JOBY Emery MD, CMA, MA 08/11/2018 1:28 PM Signed Detailed message left for patient on home # and on cell #. DORIS Vela LPN 08/11/2018 1:32 PM Signed Patient returned call and went over coumadin instructions per Dr Ayde Stern 0.5 mg daily and recheck INR in one week with understanding. Allergies As of Date: 08/11/2018 Noted Allergy Reaction AUGMENTIN (AMOXICILLIN-POT CLAVUL*04/13/2010 CEFTRIAXONE 04/13/2010 CELECOXIB 04/18/2003 Comments: itch IMURAN (AZATHIOPRINE SODIUM) 04/13/2010 LODINE (ETODOLAC) 02/17/2012 16 - Unknown METHOTREXATE 04/18/2003 Comments: affected liver(cirrhosis) NSAIDS (NON-STEROIDAL ANTI-INFLAM*04/18/2003 Comments: Hives Patient tolerates aspirin PENICILLINS 04/18/2003 Comments: nauseated and vomiting PURINE ANTAGONIST ANTIMETABOLITE 04/18/2003 Comments: nausea and vomiting SULFAMETHOXAZOLE-TRIMETHOPRIM 02/17/2012 2 - Rash Date Reviewed: 07/06/2018 Reviewed by: Eulalia Perez Clothes Wringer - Fully Assessed Reason for Visit: Anticoagulation [8] Order(s):PROTHROMBIN TIME/PT [SQPT] Order #: [id number] Prescriptions as of 08/11/2018 Sig: HYDROCODONE 7.5 MG-ACETAMINOP* Take 1 tablet by mouth every * LISINOPRIL 40 MG TABLET Take 1 tablet by mouth every * FLUOXETINE 20 MG CAPSULE Take 1 capsule by mouth once * LEVOTHYROXINE 75 MCG CAPSULE Take 75 mcg by mouth once deana* WARFARIN 1 MG TABLET 0.5mg daily CYANOCOBALAMIN (VIT B-12) 1,0* Inject 1 mL intramuscularly o* MOMETASONE 0.1 % TOPICAL CREAM Apply 1 application to affect* HONEY 80 % TOPICAL GEL Use as directed COMPOUNDED PRESCRIPTION MEDI-HONEY FOR PRESSURE ULCER* NYSTATIN 100,000 UNIT/GRAM TO* Apply 1 application to affect* Patient not taking: Reported on 07/06/2018 AMLODIPINE 5 MG TABLET Take 1 tablet by mouth once d* SIMVASTATIN 20 MG TABLET Take 1 tablet by mouth daily * PANTOPRAZOLE 40 MG TABLET,DEL* Take 40 mg by mouth once karyna* FERROUS SULFATE 325 MG (65 MG* Take 1 tablet by mouth twice * POLYETHYLENE GLYCOL 3350 17 G* 17 gram/8 oz water by mouth d* Problem List As Of Date 08/11/2018 Noted Resolved IRON DEFIC ANEMIA NOS [D50.9] INVALID FOR* Carpal tunnel syndrome [G56.00] INVALID FOR*02/21/2015 OSTEOPOROSIS NOS [M81.0] More... 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 ASTHMA UNSPECIFIED [J45.909] INVALID FOR* Open wound of knee, leg (except thigh), and ank*INVALID FOR*02/21/2015 Primary localized osteoarthrosis, lower leg [M1*INVALID FOR*02/21/2015 ADJUSTMENT DISORDER WITH DEPRESSED MOOD [F43.21]INVALID FOR* S/P RIGHT HIP JOINT REPLACEMENT [Z96.649] INVALID FOR*02/21/2015 LT HIP, COMPLIC MEDICAL LOGISTICS SPECIALIST JOINT DEVICE [996.77] [T*INVALID FOR*02/17/2012 Priority: D More... RIGHT KNEE RHEUM ARTHRITIS [714.2] [M05.60] INVALID FOR* S/P RIGHT KNEE REPLACEMENT [V43.65] [Z96.659] INVALID FOR*12/31/2016 LT KNEE, INFEC/INFLAM-MEDICAL LOGISTICS SPECIALIST JOINT DEV [996.66]*INVALID FOR*02/21/2015 SUMMARY [V999.95] INVALID FOR* More... Abnormal Stress Test [R94.39] INVALID FOR* Priority: A More... Hypertension [I10] INVALID FOR* Priority: C More... Femoral DVT (deep venous thrombosis) (HCC) [I82*INVALID FOR*02/21/2015 More... 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 Rheumatoid arthritis involving multiple sites (*INVALID FOR* Chronic anticoagulation [Z79.01] INVALID FOR* C. difficile enteritis [A04.72] INVALID FOR*04/01/2017 USP prescription opiate use [Z79.891] INVALID FOR* Vitamin B12 deficiency [E53.8] INVALID FOR* Recurrent deep vein thrombosis (DVT) (HCC) [I82*INVALID FOR* Amputation status of lower extremity (HCC) [Z89*INVALID FOR* Anemia [D64.9] INVALID FOR* Cystitis [N30.90] INVALID FOR* Superficial injury of buttock without infection*INVALID FOR* Acute embolism and thrombosis of deep vein of l*INVALID FOR* Osteoarthritis of hip [M16.9] INVALID FOR* Encounter Status:Closed by KELSIE THOMPSON CMA on 08/11/18 PROGRESS Observed: 07/06/2018 Status: COMPLETED Source: [place] 3:39 PM [facility] REPOSITORY [facility] ID: [id number] Author: Suman Stern III Service: (none) Author Type: Physician Type: Progress Notes Filed: 07/06/2018 5:59 PM Note Text: SUBJECTIVE: This is a 82 year old female that is here today for ER Follow Up. 06/30/18 report reviewed. EKG, CXRay normal. Troponin neg. Hb 9.0 (at her baseline). Since then she has not had any recurrence of chest pain. 2. Bilat shoulder pain, chronic. Dtr states that she needs norco pain med prior to wound care treatment,( when she cries in pain), and with trip in transportation van. Tylenol not sufficient on those days/activities 3. 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 Dtr having difficulty with transportation. 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 TTE 06/16 showed normal EF, 50-55%. 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 10/08/2010 - USP prescription opiate use 12/08/2017 - Osteoarthritis of hip - Osteoporosis, unspecified Osteoporosis - Other specified anemias - Peripheral vascular disease (HCC) - Pulmonary embolus (HCC) 07/04/2010 - Rheumatoid arthritis involving multiple sites (HCC) 10/10/2015 - Rheumatoid arthritis(714.0) - Unspecified hemorrhoids without mention of complication Hemorrhoids - Vitamin B12 deficiency 02/09/2018 Current Outpatient Prescriptions on File Prior to Visit: lisinopril (ZESTRIL, PRINIVIL) 40 mg tablet Take 1 tablet by mouth every morning. FLUoxetine (PROZAC) 20 mg capsule Take 1 capsule by mouth once daily. Levothyroxine 75 mcg cap Take 75 mcg by mouth once daily. HYDROcodone-Acetaminophen (NORCO) 7.5-325 mg per tablet Take 1 tablet by mouth twice daily as needed for Pain for up to 30 days. warfarin (COUMADIN) 1 mg tablet 0.5mg daily cyanocobalamin 1,000 mcg/mL soln Inject 1 mL intramuscularly once every month. mometasone (ELOCON) 0.1 % cream Apply 1 application to affected area once daily. honey ([employer], HONEY,) 80 % gel Use as directed COMPOUNDED PRESCRIPTION [facility] FOR PRESSURE ULCER COCCYX AREA 1.5 OZ TUBE amLODIPine (NORVASC) 5 mg tablet Take 1 tablet by mouth once daily. simvastatin (ZOCOR) 20 mg tablet Take 1 tablet by mouth daily at bedtime. pantoprazole DR (PROTONIX) 40 mg tablet Take 40 mg by mouth once daily. ferrous sulfate 325 mg (65 mg iron) tablet Take 1 tablet by mouth twice daily. polyethylene glycol 3350 (MIRALAX) 17 gram/dose powder 17 gram/8 oz water by mouth daily nystatin (NYSTOP) powder Apply 1 application to affected area twice daily. (Patient not taking: Reported on 07/06/2018 ) No current facility-administered medications on file prior to visit. FAMILY HISTORY Problem Relation Age of Onset - Hearing Loss Mother - Heart Father - Stroke Father - Cancer Sister SKIN - Cancer Brother SKIN - Diabetes Brother - Diabetes Sister - Stroke Brother - other (ASHD) Brother - Heart Other 2 nephews from heart disease - other (ASHD) Brother CABG 4 Social History Substance Use Topics - Smoking status: Never Smoker - Smokeless tobacco: Never Used - Alcohol use No BP 118/60 (BP Site: Right Arm, BP Position: Sitting, BP Cuff Size: Large Adult) Pulse 78 Temp 37.3 ?C (99.2 ?F) (Tympanic) Resp 16 . OBJECTIVE: APPEARANCE Well appearing, alert, in no acute distress, well-hydrated, well nourished. and in Juliette NECK Supple, no adenopathy; thyroid symmetric, normal size, no bruits HEART RRR with normal S1 and S2, no murmurs, no gallops, no JVD appreciated LUNG clear to auscultation EXTREMITIES s/p L below the knee amputation. 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 Continue to use tylenol for mild-moderate pain. same other medications Same coumadin dose. Recheck INR in 1 wk Suman Stern III MD PDMP website checked and validated. All prescriptions have been APPROPRIATELY filled. No suspicious activity was identified. 07/06/2018 by JOBY Emery MD, III MD CNOV Observed: 07/06/2018 Status: COMPLETED Source: [place] 2:40 PM [facility] REPOSITORY Office Visit (FAMPWS) DEMETRIO KAISER ([id number]) 1935 F Date Time Provider Department 07/06/18 2:40 PM SUMAN STERN III During your visit today, we recorded the following information about you: Temperature Pulse Respiration Blood pressure 99.2 degrees 78/minute 16/minute 118/60 Suman Stern III MD 07/06/2018 5:59 PM Signed SUBJECTIVE: This is a 82 year old female that is here today for ER Follow Up. 06/30/18 report reviewed. EKG, CXRay normal. Troponin neg. Hb 9.0 (at her baseline). Since then she has not had any recurrence of chest pain. 2. Bilat shoulder pain, chronic. Dtr states that she needs norco pain med prior to wound care treatment,( when she cries in pain), and with trip in transportation van. Tylenol not sufficient on those days/activities 3. 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 Dtr having difficulty with transportation. 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 TTE 06/16 showed normal EF, 50-55%. 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 10/08/2010 - USP prescription opiate use 12/08/2017 - Osteoarthritis of hip - Osteoporosis, unspecified Osteoporosis - Other specified anemias - Peripheral vascular disease (HCC) - Pulmonary embolus (HCC) 07/04/2010 - Rheumatoid arthritis involving multiple sites (HCC) 10/10/2015 - Rheumatoid arthritis(714.0) - Unspecified hemorrhoids without mention of complication Hemorrhoids - Vitamin B12 deficiency 02/09/2018 Current Outpatient Prescriptions on File Prior to Visit: lisinopril (ZESTRIL, PRINIVIL) 40 mg tablet Take 1 tablet by mouth every morning. FLUoxetine (PROZAC) 20 mg capsule Take 1 capsule by mouth once daily. Levothyroxine 75 mcg cap Take 75 mcg by mouth once daily. HYDROcodone-Acetaminophen (NORCO) 7.5-325 mg per tablet Take 1 tablet by mouth twice daily as needed for Pain for up to 30 days. warfarin (COUMADIN) 1 mg tablet 0.5mg daily cyanocobalamin 1,000 mcg/mL soln Inject 1 mL intramuscularly once every month. mometasone (ELOCON) 0.1 % cream Apply 1 application to affected area once daily. honey (MEDIHONEY, HONEY,) 80 % gel Use as directed COMPOUNDED PRESCRIPTION MEDI-HONEY FOR PRESSURE ULCER COCCYX AREA 1.5 OZ TUBE amLODIPine (NORVASC) 5 mg tablet Take 1 tablet by mouth once daily. simvastatin (ZOCOR) 20 mg tablet Take 1 tablet by mouth daily at bedtime. pantoprazole DR (PROTONIX) 40 mg tablet Take 40 mg by mouth once daily. ferrous sulfate 325 mg (65 mg iron) tablet Take 1 tablet by mouth twice daily. polyethylene glycol 3350 (MIRALAX) 17 gram/dose powder 17 gram/8 oz water by mouth daily nystatin (NYSTOP) powder Apply 1 application to affected area twice daily. (Patient not taking: Reported on 07/06/2018 ) No current facility-administered medications on file prior to visit. FAMILY HISTORY Problem Relation Age of Onset - Hearing Loss Mother - Heart Father - Stroke Father - Cancer Sister SKIN - Cancer Brother SKIN - Diabetes Brother - Diabetes Sister - Stroke Brother - other (ASHD) Brother - Heart Other 2 nephews from heart disease - other (ASHD) Brother CABG 4 Social History Substance Use Topics - Smoking status: Never Smoker - Smokeless tobacco: Never Used - Alcohol use No BP 118/60 (BP Site: Right Arm, BP Position: Sitting, BP Cuff Size: Large Adult) Pulse 78 Temp 37.3 ?C (99.2 ?F) (Tympanic) Resp 16 . OBJECTIVE: APPEARANCE Well appearing, alert, in no acute distress, well- hydrated, well nourished. and in [place] NECK Supple, no adenopathy; thyroid symmetric, normal size, no bruits HEART RRR with normal S1 and S2, no murmurs, no gallops, no JVD appreciated LUNG clear to auscultation EXTREMITIES s/p L below the knee amputation. 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 Continue to use tylenol for mild-moderate pain. same other medications Same coumadin dose. Recheck INR in 1 wk Suman Stern III MD PDMP website checked and validated. All prescriptions have been APPROPRIATELY filled. No suspicious activity was identified. 07/06/2018 by JOBY Emery MD, III MD Frank A Cebul, III MD 07/06/2018 3:51 PM Signed PLAN: increase norco 7.5mg /325mg three times/day as needed for severe pain. Continue to use tylenol for mild-moderate pain. same other medications Same coumadin dose. Recheck INR in 1 wk Suman Stern III MD Referring Provider: SELF [200] Allergies As of Date: 07/06/2018 Noted Allergy Reaction AUGMENTIN (AMOXICILLIN-POT CLAVUL*04/13/2010 CEFTRIAXONE 04/13/2010 CELECOXIB 04/18/2003 Comments: itch IMURAN (AZATHIOPRINE SODIUM) 04/13/2010 LODINE (ETODOLAC) 02/17/2012 16 - Unknown METHOTREXATE 04/18/2003 Comments: affected liver(cirrhosis) NSAIDS (NON-STEROIDAL ANTI-INFLAM*04/18/2003 Comments: Hives Patient tolerates aspirin PENICILLINS 04/18/2003 Comments: nauseated and vomiting PURINE ANTAGONIST ANTIMETABOLITE 04/18/2003 Comments: nausea and vomiting SULFAMETHOXAZOLE-TRIMETHOPRIM 02/17/2012 2 - Rash Date Reviewed: 07/06/2018 Reviewed by: Eulalia Perez Clothes Wringer - Fully Assessed Reason for Visit: ER F/U [41] Primary Visit Diagnosis:Recurrent deep vein thrombosis (DVT) of left lower extremity (HCC) [I82.402] Other Visit Diagnoses:Rheumatoid arthritis involving multiple sites, unspecified rheumatoid factor presence (HCC) [M06.9] Superficial injury of buttock without infection, sequela [S30.91XS] USP prescription opiate use [Z79.891] Chronic anticoagulation [Z79.01] Amputation status of lower extremity (HCC) [Z89.619] Order(s):HYDROcodone-Acetaminophen (NORCO) 7.5-325 mg per tabletTake 1 tablet by mouth every 8 hours as needed for Pain for up to 30 days.Disp: 90 tabletRfl: 0 Prescriptions as of 07/06/2018 Sig: HYDROCODONE 7.5 MG-ACETAMINOP* Take 1 tablet by mouth every * LISINOPRIL 40 MG TABLET Take 1 tablet by mouth every * FLUOXETINE 20 MG CAPSULE Take 1 capsule by mouth once * LEVOTHYROXINE 75 MCG CAPSULE Take 75 mcg by mouth once deana* WARFARIN 1 MG TABLET 0.5mg daily CYANOCOBALAMIN (VIT B-12) 1,0* Inject 1 mL intramuscularly o* MOMETASONE 0.1 % TOPICAL CREAM Apply 1 application to affect* HONEY 80 % TOPICAL GEL Use as directed COMPOUNDED PRESCRIPTION MEDI-HONEY FOR PRESSURE ULCER* AMLODIPINE 5 MG TABLET Take 1 tablet by mouth once d* SIMVASTATIN 20 MG TABLET Take 1 tablet by mouth daily * PANTOPRAZOLE 40 MG TABLET,DEL* Take 40 mg by mouth once karyna* FERROUS SULFATE 325 MG (65 MG* Take 1 tablet by mouth twice * POLYETHYLENE GLYCOL 3350 17 G* 17 gram/8 oz water by mouth d* NYSTATIN 100,000 UNIT/GRAM TO* Apply 1 application to affect* Patient not taking: Reported on 07/06/2018 Problem List As Of Date 07/06/2018 Noted Resolved IRON DEFIC ANEMIA NOS [D50.9] INVALID FOR* Carpal tunnel syndrome [G56.00] INVALID FOR*02/21/2015 OSTEOPOROSIS NOS [M81.0] More... 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 ASTHMA UNSPECIFIED [J45.909] INVALID FOR* Open wound of knee, leg (except thigh), and ank*INVALID FOR*02/21/2015 Primary localized osteoarthrosis, lower leg [M1*INVALID FOR*02/21/2015 ADJUSTMENT DISORDER WITH DEPRESSED MOOD [F43.21]INVALID FOR* S/P RIGHT HIP JOINT REPLACEMENT [Z96.649] INVALID FOR*02/21/2015 LT HIP, COMPLIC MEDICAL LOGISTICS SPECIALIST JOINT DEVICE [996.77] [T*INVALID FOR*02/17/2012 Priority: D More... RIGHT KNEE RHEUM ARTHRITIS [714.2] [M05.60] INVALID FOR* S/P RIGHT KNEE REPLACEMENT [V43.65] [Z96.659] INVALID FOR*12/31/2016 LT KNEE, INFEC/INFLAM-MEDICAL LOGISTICS SPECIALIST JOINT DEV [996.66]*INVALID FOR*02/21/2015 SUMMARY [V999.95] INVALID FOR* More... Abnormal Stress Test [R94.39] INVALID FOR* Priority: A More... Hypertension [I10] INVALID FOR* Priority: C More... Femoral DVT (deep venous thrombosis) (HCC) [I82*INVALID FOR*02/21/2015 More... 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 Rheumatoid arthritis involving multiple sites (*INVALID FOR* Chronic anticoagulation [Z79.01] INVALID FOR* C. difficile enteritis [A04.72] INVALID FOR*04/01/2017 USP prescription opiate use [Z79.891] INVALID FOR* Vitamin B12 deficiency [E53.8] INVALID FOR* Recurrent deep vein thrombosis (DVT) (HCC) [I82*INVALID FOR* Amputation status of lower extremity (HCC) [Z89*INVALID FOR* Anemia [D64.9] INVALID FOR* Cystitis [N30.90] INVALID FOR* Superficial injury of buttock without infection*INVALID FOR* Acute embolism and thrombosis of deep vein of l*INVALID FOR* Osteoarthritis of hip [M16.9] INVALID FOR* Other instructions from your clinician: PLAN: increase norco 7.5mg /325mg three times/day as needed for severe pain. Continue to use tylenol for mild-moderate pain. same other medications Same coumadin dose. Recheck INR in 1 wk Suman Stern III MD Prescriptions ordered this encounter Disp Refills Start End HYDROCODONE 7.5 MG-ACETAMINOPHEN 325* 90 t* 0 07/06/2018 08/05/2018 Class: Print RX Route: ORAL Sig: Take 1 tablet by mouth every 8 hours as needed for Pain for up to 30 days. Medications Discontinued During This Encounter HYDROcodone-Acetaminophen (NORCO) 7.* 60 t* 0 06/08/2018 07/06/2018 Class: Print RX Route: ORAL Sig: Take 1 tablet by mouth twice daily as needed for Pain for up to 30 days. Disc: Reason for discontinue is not on file. Encounter Status:Closed by SUMAN STERN III, MD on 07/06/18 12 LEAD ELECTROCARDIOGRAM Observed: 07/01/2018 Status: F Source: [place] 11:14 AM [facility] REPOSITORY [facility] Cardiovascular Services [address] [place] [id number] 12 Lead EKG 06/29/181930 MR#: [id number] Acct: [id number] Name: DEMETRIO KAISER Rep #: [id number] : 1935 82 From: Taye Leon MD Attending Dr: Status: DEP ER Ordering Dr: Provider, Ed P. Date: 06/29/18 Location: ED Sex: F C Admitted: Test Reason : CP Blood Pressure : / mmHG Vent. Rate : 067 BPM Atrial Rate : 067 BPM P-R Int : 148 ms QRS Dur : 084 ms QT Int : 430 ms P-R-T Axes : 034 -22 034 degrees QTc Int : 454 ms Sinus rhythm with marked sinus arrhythmia Septal infarct , age undetermined Abnormal ECG Confirmed by SCHUYLER ULRICH, TAYE ([id number]), science editor FARHANA GALAN ([id number]) on 07/01/2018 11:13:51 AM Referred By: NIKA Confirmed By:TAYE LEON MD 07/01/18 1113 Date Taye Leon MD CC: ED PHYSICIAN PROVIDER; Suman Stern III, MD; Viola Massey MD Signed EMERGENCY DEPARTMENT Observed: 06/30/2018 Status: F Source: [place] SUMMARY 2:58 PM [facility] REPOSITORY [facility] Medical Records Department [address] [place] [address] Emergency Department Summary 06/30/18 0239 MR#: [id number] Acct: [id number] Name: DEMETRIO KAISER Rep #: [id number] : 1935 82 From: Viola Massey MD PCP: Suman Stern III, MD Status: DEP ER - ER Visit Summary Date of Service: 06/30/18 Chief Complaint: Back pain, cough, chest pain History of Present Illness: The patient is a 82 F with a history of hypertension, high cholesterol, reflux disease, DVT and PE. Patient reports having acid reflux-like symptoms today with cough and clear fluid. Tonight she developed back pain and some mild chest heaviness. She denies shortness of breath. She denies any recent illness. Physical Examination: Vital signs unremarkable. Head neck examination unremarkable. Heart is regular rate and rhythm. Lung sounds are clear. She does have anterior chest wall tenderness to palpation. No crepitus. Back examination reveals tenderness in the thoracic paraspinals. Test Results: EKG is sinus at 67 with no sign of acute ischemia. Chest x-ray shows no acute disease. CBC reveals a hemoglobin of 9.0 which is consistent with her baseline. Chemistry studies significant only for potassium of 3.4. INR is 2.1. Troponin is less than 0.015. Emergency Department Course and Treatment: Patient initially declined anything for pain. While she was here she did ask take her home dose of [place]. Test results were discussed with patient and family at bedside. At this time I believe her symptoms are musculoskeletal in nature from coughing. I see no sign of acute infection that requires antibiotics. Treatment Plan: [] Disposition: Discharge Impression: Musculoskeletal chest and back pain This note was generated with Rixty dictation software. It may contain incorrect words, spelling, and punctuation that were not noted in review of the chart prior to signing ED Disposition - Plan for ED Patient: Disposition: Home or Assisted Living Chief Complaint: Chest Pain Instructions: ED Strain Chest Wall Referrals: Suman Stern III, MD [Primary Care Provider] - 1 Week What to do if you have Problems For any increased pain, shortness of breath, bleeding, nausea or vomiting, chest pain, or any unexpected problems, contact your Primary Care Provider. Call [facility] ([phone]) or report to the closest Emergency Room. Call 911 if necessary. 06/30/18 1458 <Electronically signed by Viola Massey MD> Date Viola Massey MD Cosigner Signature (If Indicated): Date CC: Suman Stern III, MD DISCHARGE INSTRUCTION Observed: 06/29/2018 Status: F Source: [place] 10:54 PM [facility] REPOSITORY [facility] Medical Records Department [address] [place], [place] [address] [address] Discharge Instruction 06/29/182252 MR#: [id number] Acct: [id number] Name: DEMETRIO KAISER Rep #: [id number] : 1935 82 From: Viola Massey MD PCP: Suman Stern III, MD Status: REG ER ED Disposition - Plan for ED Patient: Disposition: Home or Assisted Living Chief Complaint: Chest Pain Instructions: ED Strain Chest Wall Referrals: Suman Stern III, MD [Primary Care Provider] - 1 Week What to do if you have Problems For any increased pain, shortness of breath, bleeding, nausea or vomiting, chest pain, or any unexpected problems, contact your Primary Care Provider. Call [facility] ([phone]) or report to the closest Emergency Room. Call 911 if necessary. 06/29/182253 <Electronically signed by Viola Massey MD> Date Viola Massey MD Cosigner Signature (If Indicated): Date CC: Suman Stern III, MD CBC W/DIFF, AUTOMATED Collected: 06/29/2018 Status: F Source: [place] 8:35 PM [facility] REPOSITORY TYPE CODE TESTS RESULT OUT OF RANGE REFERENCE UNITS LAB L100.1000 4.4-11.0 K/mm3 Normal WBC 8.8 LAB L100.1200 4.2-5.4 M/mm3 Low RBC 3.64 LAB L100.1300 12.0-15.0 g/dl Low HGB 9.0 LAB L100.1400 37-47 % Low HCT 30.3 LAB L100.1500 81-99 fL Normal MCV 83.2 LAB L100.1600 27.0-32.0 pg Low MCH 24.7 LAB L100.1700 32-36 g/gl Low MCHC 29.7 LAB L100.1810 11.6-14.6 % High RDW CV 16.1 LAB L100.1820 35.1-43.9 fl High RDW SD 48.2 LAB L100.1900 150-450 K/mm3 High PLT 650 LAB L100.2000 6.2-12.0 fl Normal MPV 8.4 LAB L100.2100 47-70 % Normal NEUT% 62.5 LAB L100.2200 19-41 % Normal LY% 26.9 LAB L100.2300 0-10 % Normal MONO% 7.5 LAB L100.2400 0-5 % Normal EO% 2.3 LAB L100.2500 0-1 % Normal BASO% 0.6 LAB L100.2550 0.0-0.9 % Normal IM GRAN % 0.200 Result Comment: IG% - Immature Granulocytes (promyelocytes, myelocytes and metamyelocytes) > 1% indicates that a LEFT SHIFT is Present. LAB L100.2620 2.0-7.7 X10 3/uL Normal Absolute Neut 5.5 LAB L100.2720 0.83-4.51 X10 3/ul Normal Absolute Lymph 2.35 Performed By: #### L100.0100, L500.2500, L501.4010 #### [facility] [address] [place], [place], [id number] BASIC METABOLIC Collected: 06/29/2018 Status: F Source: [place] PROFILE (BMP) 8:35 PM [facility] REPOSITORY TYPE CODE TESTS RESULT OUT OF RANGE REFERENCE UNITS LAB L501.0100 74-106 mg/dL Normal GLU 93 Result Comment: Please note revised GLUCOSE reference range effective 2017. LAB L501.1000 7-18 mg/dL Normal BUN 16 LAB L501.1100 0.55-1.02 mg/dL Low CREAT,SERUM 0.50 Result Comment: The validity of the calculated GFR AND GFRAA in patients over 70 years has not been determined. Clinical correlation is essential. LAB L501.1110 >60 mL/min Normal EST GFR 127 Result Comment: Non- GFR Calc LAB L501.1115 >60 mL/min Normal EST GFR - AA 154 Result Comment: GFR Calc LAB L501.1255 ml/min Normal Estimated CRCL 35.34 LAB L501.1300 10-20 RATIO High BUN/CRE 32.3 LAB L501.2200 8.5-10 mg/dL Normal .1 CA 8.6 LAB L501.5300 136-14 mmol/L Normal 5 NA 140 LAB L501.5600 3.5-5. mmol/L Low 1 K 3.4 LAB L501.5900 98-107 mmol/L Normal CL 105 LAB L501.6100 21.0-3 mmol/L Normal 2.0 CO2 29.0 LAB L501.6200 5-15 Normal GAP 6 Performed By: #### L100.0100, L500.2500, L501.4010 #### [facility] [address] [place], [place], [id number] TROPONIN-I Collected: 06/29/2018 Status: F Source: [place] 8:35 PM [facility] REPOSITORY TYPE CODE TESTS RESULT OUT OF RANGE REFERENCE UNITS LAB L501.4010 <0.045 ng/mL Normal < 0.015 TROPONIN-I Result Comment: TROPONIN-I EXPECTED VALUES <0.045 Negative 0.045 - 0.590 Consistent with Cardiac Damage > OR = 0.600 Critical Value Not every elevated troponin is indicative of RI. These values should be used with clinical judgement in examining the patient's clinical picture for diagnosis. To establish a diagnosis of RI versus myocardial injury, there must be a demonstrated rise and/or fall in the troponin values, in addition to ischemic symptoms, EKG changes, new regional wall motion abnormality, and/or angiographical evidence. PLEASE NOTE: REFERENCE RANGES EDITED 18 Performed By: #### L100.0100, L500.2500, L501.4010 #### [facility] [address] [place], [address] PROTHROMBIN TIME W/INR Collected: 06/29/2018 Status: F Source: [place] 8:35 PM [facility] REPOSITORY TYPE CODE TESTS RESULT OUT OF RANGE REFERENCE UNITS LAB L300.4150 11.7-14.9 SECONDS High PROTIME 24.0 LAB L300.4200 Normal INR 2.1 Performed By: #### L300.3900 #### [facility] [address] [place], [address] CHEST 1 VIEW Observed: 06/29/2018 Status: F Source: [place] (PORTABLE) 8:20 PM [facility] REPOSITORY [facility] Imaging Services [address] [place] [address] Chest 1 View (Portable) MR#: [id number] Acct: [id number] Name: DEMETRIO KAISER Rep #: [id number] : 1935 F 82 From: Tariq Blackmon DO PCP: Suman Stern III, MD Status: REG ER Study: Chest 1 View (Portable) Date of Exam: 06/29/18 Exam# [id number] Ordering Dr: Viola Massey MD STUDY: X-RAY CHEST REASON FOR EXAM: Female, 82 years old. Chest pain TECHNIQUE: Single AP portable view of the chest. COMPARISON: 07/29/2016 FINDINGS: There is hyperinflation of the lungs consistent with chronic obstructive lung disease (COPD). Lungs are clear. There is no demonstrated pleural abnormality. There is borderline cardiomegaly. Normal mediastinum and ashlee. Normal visualized pulmonary arteries. Normal visualized aortic arch and descending thoracic aorta. There are diffuse degenerative changes of the visualized thoracic spine. Normal visualized ribs, clavicles, and shoulders. There is no demonstrated abnormality of the visualized soft tissue structures of the upper abdomen. RAD/Chest 1 View (Portable) IMPRESSION: No acute cardiopulmonary disease. Electronically Signed: Tariq Blackmon DO at 21:15 EDT Tel , Service support , CC: Suman Stern III, MD; Viola Massey MD Director Of Reservations: Signed CNPN Observed: 06/29/2018 Status: COMPLETED Source: [place] 12:00 AM [facility] REPOSITORY [facility] DEMETRIO KAISER ([id number]) 1935 F Date Time Provider Department 06/29/18 [facility]ERN [facility] During your visit today, we recorded the following information about you: [facility] [place] 06/29/2018 7:26 PM Signed Received fax: Current INR 2.0 on 06/29/2018 Current dose of coumadin is 0.5 mg daily Previous INR (date and result) 2.1 on 06/22/2018 Per PCP written response: Same coumadin dose, recheck in one week. Spoke with , voiced understanding. also stated that patient is on her way to the ER, she was not feeling good, a lot of phlegm in her throat, they are thinking possible heart attack, patient stated she needed to go to the hospital so called 911. Will check on her tomorrow. Kelsie Thompson,TACKING STITCH REMOVER Allergies As of Date: 06/29/2018 Noted Allergy Reaction AUGMENTIN (AMOXICILLIN-POT CLAVUL*04/13/2010 CEFTRIAXONE 04/13/2010 CELECOXIB 04/18/2003 Comments: itch IMURAN (AZATHIOPRINE SODIUM) 04/13/2010 LODINE (ETODOLAC) 02/17/2012 16 - Unknown METHOTREXATE 04/18/2003 Comments: affected liver(cirrhosis) NSAIDS (NON-STEROIDAL ANTI-INFLAM*04/18/2003 Comments: Hives Patient tolerates aspirin PENICILLINS 04/18/2003 Comments: nauseated and vomiting PURINE ANTAGONIST ANTIMETABOLITE 04/18/2003 Comments: nausea and vomiting SULFAMETHOXAZOLE-TRIMETHOPRIM 02/17/2012 2 - Rash Date Reviewed: 03/24/2018 Reviewed by: Rufino Richardson (Kareem) Piter - Fully Assessed Reason for Visit: Anticoagulation [8] Order(s):PROTHROMBIN TIME/PT [SQPT] Order #: [id number] Prescriptions as of 06/29/2018 Sig: LISINOPRIL 40 MG TABLET Take 1 tablet by mouth every * FLUOXETINE 20 MG CAPSULE Take 1 capsule by mouth once * LEVOTHYROXINE 75 MCG CAPSULE Take 75 mcg by mouth once deana* HYDROCODONE 7.5 MG-ACETAMINOP* Take 1 tablet by mouth twice * WARFARIN 1 MG TABLET 0.5mg daily CYANOCOBALAMIN (VIT B-12) 1,0* Inject 1 mL intramuscularly o* MOMETASONE 0.1 % TOPICAL CREAM Apply 1 application to affect* HONEY 80 % TOPICAL GEL Use as directed COMPOUNDED PRESCRIPTION MEDI-HONEY FOR PRESSURE ULCER* NYSTATIN 100,000 UNIT/GRAM TO* Apply 1 application to affect* AMLODIPINE 5 MG TABLET Take 1 tablet by mouth once d* SIMVASTATIN 20 MG TABLET Take 1 tablet by mouth daily * PANTOPRAZOLE 40 MG TABLET,DEL* Take 40 mg by mouth once karyna* FERROUS SULFATE 325 MG (65 MG* Take 1 tablet by mouth twice * POLYETHYLENE GLYCOL 3350 17 G* 17 gram/8 oz water by mouth d* Problem List As Of Date 06/29/2018 Noted Resolved IRON DEFIC ANEMIA NOS [D50.9] INVALID FOR* Carpal tunnel syndrome [G56.00] INVALID FOR*02/21/2015 OSTEOPOROSIS NOS [M81.0] More... 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 ASTHMA UNSPECIFIED [J45.909] INVALID FOR* Open wound of knee, leg (except thigh), and ank*INVALID FOR*02/21/2015 Primary localized osteoarthrosis, lower leg [M1*INVALID FOR*02/21/2015 ADJUSTMENT DISORDER WITH DEPRESSED MOOD [F43.21]INVALID FOR* S/P RIGHT HIP JOINT REPLACEMENT [Z96.649] INVALID FOR*02/21/2015 LT HIP, COMPLIC MEDICAL LOGISTICS SPECIALIST JOINT DEVICE [996.77] [T*INVALID FOR*02/17/2012 Priority: D More... RIGHT KNEE RHEUM ARTHRITIS [714.2] [M05.60] INVALID FOR* S/P RIGHT KNEE REPLACEMENT [V43.65] [Z96.659] INVALID FOR*12/31/2016 LT KNEE, INFEC/INFLAM-MEDICAL LOGISTICS SPECIALIST JOINT DEV [996.66]*INVALID FOR*02/21/2015 SUMMARY [V999.95] INVALID FOR* More... Abnormal Stress Test [R94.39] INVALID FOR* Priority: A More... Hypertension [I10] INVALID FOR* Priority: C More... Femoral DVT (deep venous thrombosis) (HCC) [I82*INVALID FOR*02/21/2015 More... 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 Rheumatoid arthritis involving multiple sites (*INVALID FOR* Chronic anticoagulation [Z79.01] INVALID FOR* C. 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] INVALID FOR* Vitamin B12 deficiency [E53.8] INVALID FOR* Recurrent deep vein thrombosis (DVT) (HCC) [I82*INVALID FOR* Amputation status of lower extremity (HCC) [Z89*INVALID FOR* Anemia [D64.9] INVALID FOR* Cystitis [N30.90] INVALID FOR* Superficial injury of buttock without infection*INVALID FOR* Acute embolism and thrombosis of deep vein of l*INVALID FOR* Osteoarthritis of hip [M16.9] INVALID FOR* Encounter Status:Closed by KELSIE THOMPSON CMA on 06/29/18 PROGRESS Observed: 06/08/2018 Status: COMPLETED Source: [place] 3:01 PM [facility] [place] REPOSITORY [facility] ID: [id number] Author: Suman Stern III Service: (none) Author Type: Physician Type: Progress Notes Filed: 06/08/2018 6:36 PM Note Text: SUBJECTIVE: This is a 82 year old female that is here today for Chronic Medical Conditions and Acute Complaints. 1. constant pain, severe--norco no longer helping. Shoulders, 2. pressure sore buttock under care of wound center, complicated by mrsa and tx with antibiotics. Progress note from the wound center reviewed showing a depth of 0.5 cm, width of 0.6 cm ,and length 1 cm 3. numbness L 5th finger x 1 mo. Also has had numbness of all fingertips 4. no longer does housework or cooking. 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 Unable to be more functional because of pain. With detailed questioning it appears that she takes hydrocodone 5 mg every morning upon awakening which helps her get out of bed, get day and dressed. She finds that taking acetaminophen 1000 mg once or twice in afternoons seems to be adequate as she is sitting in a chair during those hours. After supper in the evenings she takes another hydrocodone 5 mg which helped her knees joint pain so as to be able to sleep. She notes that the hydrocodone is effective but is not providing the pain relief that she once did. We note that she is unable to take NSAIDs because she is on long-term Coumadin therapy, and she is at the maximum allowed daily dose of acetaminophen. 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 TTE 06/16 showed normal EF, 50-55%. 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 10/08/2010 - USP prescription opiate use 12/08/2017 - Osteoarthritis of hip - Osteoporosis, unspecified Osteoporosis - Other specified anemias - Peripheral vascular disease (HCC) - Pulmonary embolus (HCC) 07/04/2010 - Rheumatoid arthritis involving multiple sites (HCC) 10/10/2015 - Rheumatoid arthritis(714.0) - Unspecified hemorrhoids without mention of complication Hemorrhoids - Vitamin B12 deficiency 02/09/2018 Current Outpatient Prescriptions on File Prior to Visit: warfarin (COUMADIN) 1 mg tablet 0.5mg daily cyanocobalamin 1,000 mcg/mL soln Inject 1 mL intramuscularly once every month. mometasone (ELOCON) 0.1 % cream Apply 1 application to affected area once daily. honey (MEDIHONEY, HONEY,) 80 % gel Use as directed HYDROcodone-acetaminophen (NORCO) 5-325 mg per tablet Take 1 tablet by mouth every 6 hours as needed for Pain for up to 24 days.Earliest Fill Date: 03/24/18 COMPOUNDED PRESCRIPTION MEDI-HONEY FOR PRESSURE ULCER COCCYX AREA 1.5 OZ TUBE nystatin (NYSTOP) powder Apply 1 application to affected area twice daily. amLODIPine (NORVASC) 5 mg tablet Take 1 tablet by mouth once daily. simvastatin (ZOCOR) 20 mg tablet Take 1 tablet by mouth daily at bedtime. pantoprazole DR (PROTONIX) 40 mg tablet Take 40 mg by mouth once daily. ferrous sulfate 325 mg (65 mg iron) tablet Take 1 tablet by mouth twice daily. lisinopril (ZESTRIL, PRINIVIL) 40 mg tablet Take 1 tablet by mouth every morning. Levothyroxine 75 mcg cap Take 75 mcg by mouth once daily. polyethylene glycol 3350 (MIRALAX) 17 gram/dose powder 17 gram/8 oz water by mouth daily No current facility-administered medications on file prior to visit. FAMILY HISTORY Problem Relation Age of Onset - Hearing Loss Mother - Heart Father - Stroke Father - Cancer Sister SKIN - Cancer Brother SKIN - Diabetes Brother - Diabetes Sister - Stroke Brother - ASHD [OTHER] Brother - Heart Other 2 nephews from heart disease - ASHD [OTHER] Brother CABG 4 Social History Substance Use Topics - Smoking status: Never Smoker - Smokeless tobacco: Never Used - Alcohol use No BP 112/78 Pulse 105 Resp 20 OBJECTIVE: APPEARANCE Well appearing, alert, in no acute distress, well-hydrated, well nourished. and examined in her power wheelchair. 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 NECK Supple, no adenopathy; thyroid symmetric, normal size, no bruits HEART RRR with normal S1 and S2, no murmurs, no gallops, no JVD appreciated LUNG clear to auscultation EXTREMITIES tenderness left posterior medial elbow. Good capillary filling of the fingertips though there is tenderness with firm palpation of the left index finger. ASSESSMENT: RA with constant pain poor pain control on group home use of opiates decubitus R buttock ulcer--healing L ulnar neuropathy Atrial fibrillation on long-term Coumadin Hypothyroidism?at goal. TSH 1.18 on 12/09/17 PLAN: increase norco 7.5mg twice/day use acetometaphen 500mg -1000 mg three times/day--maximum daily dose 3000 mg per day careful activity continue wound care same other medications INR tomorrow return to office 3 mos to monitor use of controlled substance Use cushion to protect the left ulnar nerve Suman Stern III MD PDMP website checked and validated. All prescriptions have been APPROPRIATELY filled. No suspicious activity was identified. 06/08/2018 by Suman A JOBY Stern MD, III MD CNOV Observed: 06/08/2018 Status: COMPLETED Source: [place] 2:40 PM [facility] REPOSITORY [facility] DEMETRIO [facility] ([id number]) 1935 F Date Time Provider Department 06/08/18 2:40 PM SUMAN STERN III During your visit today, we recorded the following information about you: Pulse Respiration Blood pressure 105/minute 20/minute 112/78 Suman Stern III MD 06/08/2018 6:36 PM Signed SUBJECTIVE: This is a 82 year old female that is here today for Chronic Medical Conditions and Acute Complaints. 1. constant pain, severe--norco no longer helping. Shoulders, 2. pressure sore buttock under care of wound center, complicated by mrsa and tx with antibiotics. Progress note from the wound center reviewed showing a depth of 0.5 cm, width of 0.6 cm ,and length 1 cm 3. numbness L 5th finger x 1 mo. Also has had numbness of all fingertips 4. no longer does housework or cooking. 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 Unable to be more functional because of pain. With detailed questioning it appears that she takes hydrocodone 5 mg every morning upon awakening which helps her get out of bed, get day and dressed. She finds that taking acetaminophen 1000 mg once or twice in afternoons seems to be adequate as she is sitting in a chair during those hours. After supper in the evenings she takes another hydrocodone 5 mg which helped her knees joint pain so as to be able to sleep. She notes that the hydrocodone is effective but is not providing the pain relief that she once did. We note that she is unable to take NSAIDs because she is on long-term Coumadin therapy, and she is at the maximum allowed daily dose of acetaminophen. 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 TTE 06/16 showed normal EF, 50-55%. 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 - Osteoarthritis of hip - Osteoporosis, unspecified Osteoporosis - Other specified anemias - Peripheral vascular disease ([facility]) - Pulmonary embolus ([facility]) 07/04/2010 - Rheumatoid arthritis involving multiple sites ([facility]) 10/10/2015 - Rheumatoid arthritis(714.0) - Unspecified hemorrhoids without mention of complication Hemorrhoids - Vitamin B12 deficiency 02/09/2018 Current Outpatient Prescriptions on File Prior to Visit: warfarin (COUMADIN) 1 mg tablet 0.5mg daily cyanocobalamin 1,000 mcg/mL soln Inject 1 mL intramuscularly once every month. mometasone (ELOCON) 0.1 % cream Apply 1 application to affected area once daily. honey (MEDIHONEY, HONEY,) 80 % gel Use as directed HYDROcodone-acetaminophen (NORCO) 5-325 mg per tablet Take 1 tablet by mouth every 6 hours as needed for Pain for up to 24 days.Earliest Fill Date: 03/24/18 COMPOUNDED PRESCRIPTION [place] FOR PRESSURE ULCER COCCYX AREA 1.5 OZ TUBE nystatin (NYSTOP) powder Apply 1 application to affected area twice daily. amLODIPine (NORVASC) 5 mg tablet Take 1 tablet by mouth once daily. simvastatin (ZOCOR) 20 mg tablet Take 1 tablet by mouth daily at bedtime. pantoprazole DR (PROTONIX) 40 mg tablet Take 40 mg by mouth once daily. ferrous sulfate 325 mg (65 mg iron) tablet Take 1 tablet by mouth twice daily. lisinopril (ZESTRIL, PRINIVIL) 40 mg tablet Take 1 tablet by mouth every morning. Levothyroxine 75 mcg cap Take 75 mcg by mouth once daily. polyethylene glycol 3350 (MIRALAX) 17 gram/dose powder 17 gram/8 oz water by mouth daily No current facility-administered medications on file prior to visit. FAMILY HISTORY Problem Relation Age of Onset - Hearing Loss Mother - Heart Father - Stroke Father - Cancer Sister SKIN - Cancer Brother SKIN - Diabetes Brother - Diabetes Sister - Stroke Brother - ASHD [OTHER] Brother - Heart Other 2 nephews from heart disease - ASHD [OTHER] Brother CABG 4 Social History Substance Use Topics - Smoking status: Never Smoker - Smokeless tobacco: Never Used - Alcohol use No BP 112/78 Pulse 105 Resp 20 OBJECTIVE: APPEARANCE Well appearing, alert, in no acute distress, well- hydrated, well nourished. and examined in her power wheelchair. 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 NECK Supple, no adenopathy; thyroid symmetric, normal size, no bruits HEART RRR with normal S1 and S2, no murmurs, no gallops, no JVD appreciated LUNG clear to auscultation EXTREMITIES tenderness left posterior medial elbow. Good capillary filling of the fingertips though there is tenderness with firm palpation of the left index finger. ASSESSMENT: RA with constant pain poor pain control on group home use of opiates decubitus R buttock ulcer--healing L ulnar neuropathy Atrial fibrillation on long-term Coumadin Hypothyroidism?at goal. TSH 1.18 on 12/09/17 PLAN: increase norco 7.5mg twice/day use acetometaphen 500mg -1000 mg three times/day--maximum daily dose 3000 mg per day careful activity continue wound care same other medications INR tomorrow return to office 3 mos to monitor use of controlled substance Use cushion to protect the left ulnar nerve Suman Stern III MD PDMP website checked and validated. All prescriptions have been APPROPRIATELY filled. No suspicious activity was identified. 06/08/2018 by JBOY Emery MD, III MD Frank A Cebul, III MD 06/08/2018 3:35 PM Signed PLAN: increase norco 7.5mg twice/day use acetometaphen 500mg -1000 mg three times/day careful activity continue wound care same other medications INR tomorrow return to office 3 mos to monitor use of controlled substance Suman Stern III MD Referring Provider: SUMAN STERN III [[id number]] Allergies As of Date: 06/08/2018 Noted Allergy Reaction AUGMENTIN (AMOXICILLIN-POT CLAVUL*04/13/2010 CEFTRIAXONE 04/13/2010 CELECOXIB 04/18/2003 Comments: itch IMURAN (AZATHIOPRINE SODIUM) 04/13/2010 LODINE (ETODOLAC) 02/17/2012 16 - Unknown METHOTREXATE 04/18/2003 Comments: affected liver(cirrhosis) NSAIDS (NON-STEROIDAL ANTI-INFLAM*04/18/2003 Comments: Hives Patient tolerates aspirin PENICILLINS 04/18/2003 Comments: nauseated and vomiting PURINE ANTAGONIST ANTIMETABOLITE 04/18/2003 Comments: nausea and vomiting SULFAMETHOXAZOLE-TRIMETHOPRIM 02/17/2012 2 - Rash Date Reviewed: 03/24/2018 Reviewed by: Rufino Richardson (Kareem) Piter - Fully Assessed Reason for Visit: 6 month office visit [Other] Primary Visit Diagnosis:Rheumatoid arthritis involving multiple sites, unspecified rheumatoid factor presence (HCC) [M06.9] Other Visit Diagnoses:Adjustment disorder with depressed mood [F43.21] Hypothyroidism, unspecified type [E03.9] Superficial injury of buttock without infection, sequela [S30.91XS] USP prescription opiate use [Z79.891] Ulnar neuropathy of left upper extremity [G56.22] Order(s):FLUoxetine (PROZAC) 20 mg capsuleTake 1 capsule by mouth once daily.Disp: 90 capsuleRfl: 3 Levothyroxine 75 mcg capTake 75 mcg by mouth once daily.Disp: 90 capsuleRfl: 3 HYDROcodone-Acetaminophen (NORCO) 7.5-325 mg per tabletTake 1 tablet by mouth twice daily as needed for Pain for up to 30 days.Disp: 60 tabletRfl: 0 Prescriptions as of 06/08/2018 Sig: LEVOTHYROXINE 75 MCG CAPSULE Take 75 mcg by mouth once deana* WARFARIN 1 MG TABLET 0.5mg daily CYANOCOBALAMIN (VIT B-12) 1,0* Inject 1 mL intramuscularly o* MOMETASONE 0.1 % TOPICAL CREAM Apply 1 application to affect* HONEY 80 % TOPICAL GEL Use as directed COMPOUNDED PRESCRIPTION MEDI-HONEY FOR PRESSURE ULCER* NYSTATIN 100,000 UNIT/GRAM TO* Apply 1 application to affect* AMLODIPINE 5 MG TABLET Take 1 tablet by mouth once d* SIMVASTATIN 20 MG TABLET Take 1 tablet by mouth daily * PANTOPRAZOLE 40 MG TABLET,DEL* Take 40 mg by mouth once karyna* FERROUS SULFATE 325 MG (65 MG* Take 1 tablet by mouth twice * X LISINOPRIL 40 MG TABLET Take 1 tablet by mouth every * POLYETHYLENE GLYCOL 3350 17 G* 17 gram/8 oz water by mouth d* FLUOXETINE 20 MG CAPSULE Take 1 capsule by mouth once * HYDROCODONE 7.5 MG-ACETAMINOP* Take 1 tablet by mouth twice * Problem List As Of Date 06/08/2018 Noted Resolved IRON DEFIC ANEMIA NOS [D50.9] INVALID FOR* Carpal tunnel syndrome [G56.00] INVALID FOR*02/21/2015 OSTEOPOROSIS NOS [M81.0] More... 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 ASTHMA UNSPECIFIED [J45.909] INVALID FOR* Open wound of knee, leg (except thigh), and ank*INVALID FOR*02/21/2015 Primary localized osteoarthrosis, lower leg [M1*INVALID FOR*02/21/2015 ADJUSTMENT DISORDER WITH DEPRESSED MOOD [F43.21]INVALID FOR* S/P RIGHT HIP JOINT REPLACEMENT [Z96.649] INVALID FOR*02/21/2015 LT HIP, COMPLIC MEDICAL LOGISTICS SPECIALIST JOINT DEVICE [996.77] [T*INVALID FOR*02/17/2012 Priority: D More... RIGHT KNEE RHEUM ARTHRITIS [714.2] [M05.60] INVALID FOR* S/P RIGHT KNEE REPLACEMENT [V43.65] [Z96.659] INVALID FOR*12/31/2016 LT KNEE, INFEC/INFLAM-MEDICAL LOGISTICS SPECIALIST JOINT DEV [996.66]*INVALID FOR*02/21/2015 SUMMARY [V999.95] INVALID FOR* More... Abnormal Stress Test [R94.39] INVALID FOR* Priority: A More... Hypertension [I10] INVALID FOR* Priority: C More... Femoral DVT (deep venous thrombosis) (HCC) [I82*INVALID FOR*02/21/2015 More... 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 Rheumatoid arthritis involving multiple sites (*INVALID FOR* Chronic anticoagulation [Z79.01] INVALID FOR* C. 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] INVALID FOR* Vitamin B12 deficiency [E53.8] INVALID FOR* Recurrent deep vein thrombosis (DVT) (HCC) [I82*INVALID FOR* Amputation status of lower extremity (HCC) [Z89*INVALID FOR* Anemia [D64.9] INVALID FOR* Cystitis [N30.90] INVALID FOR* Superficial injury of buttock without infection*INVALID FOR* Acute embolism and thrombosis of deep vein of l*INVALID FOR* Osteoarthritis of hip [M16.9] INVALID FOR* Other instructions from your clinician: PLAN: increase norco 7.5mg twice/day use acetometaphen 500mg -1000 mg three times/day careful activity continue wound care same other medications INR tomorrow return to office 3 mos to monitor use of controlled substance Suman Stern III MD Prescriptions ordered this encounter Disp Refills Start End FLUOXETINE 20 MG CAPSULE 90 c* 3 06/08/2018 Route: ORAL Sig: Take 1 capsule by mouth once daily. LEVOTHYROXINE 75 MCG CAPSULE 90 c* 3 06/08/2018 Route: ORAL Sig: Take 75 mcg by mouth once daily. HYDROCODONE 7.5 MG-ACETAMINOPHEN 325* 60 t* 0 06/08/2018 07/08/2018 Class: Print RX Route: ORAL Sig: Take 1 tablet by mouth twice daily as needed for Pain for up to 30 days. Medications Discontinued During This Encounter HYDROcodone-acetaminophen (NORCO) 5-* 100 * 0 03/24/2018 06/08/2018 Class: Print RX Route: ORAL Sig: Take 1 tablet by mouth every 6 hours as needed for Pain for up to 24 days. Earliest Fill Date: 03/24/18 Disc: Dosage adjustment Levothyroxine 75 mcg cap 90 c* 3 06/28/2017 06/08/2018 Route: ORAL Sig: Take 75 mcg by mouth once daily. Disc: Reason for discontinue is not on file. Encounter Status:Closed by SUMAN STERN III, MD on 06/08/18 CNPTOUTREACH Observed: 05/26/2018 Status: COMPLETED Source: [place] 12:00 AM [facility] REPOSITORY Patient Outreach ([facility]) DEMETRIO [facility] ([id number]) 1935 F Date Time Provider Department 05/26/18 SUMAN STERN III [facility] During your visit today, we recorded the following information about you: Allergies As of Date: 05/26/2018 Noted Allergy Reaction AUGMENTIN (AMOXICILLIN-POT CLAVUL*04/13/2010 CEFTRIAXONE 04/13/2010 CELECOXIB 04/18/2003 Comments: itch IMURAN (AZATHIOPRINE SODIUM) 04/13/2010 LODINE (ETODOLAC) 02/17/2012 16 - Unknown METHOTREXATE 04/18/2003 Comments: affected liver(cirrhosis) NSAIDS (NON-STEROIDAL ANTI-INFLAM*04/18/2003 Comments: Hives Patient tolerates aspirin PENICILLINS 04/18/2003 Comments: nauseated and vomiting PURINE ANTAGONIST ANTIMETABOLITE 04/18/2003 Comments: nausea and vomiting SULFAMETHOXAZOLE-TRIMETHOPRIM 02/17/2012 2 - Rash Date Reviewed: 03/24/2018 Reviewed by: Rufino Richardson (Kareem) Piter - Fully Assessed Visit Diagnosis:Medication management [Z79.899] Order(s):HGB A1C [[id number]] Order #: [id number] FUTURE Prescriptions as of 05/26/2018 Sig: X WARFARIN 1 MG TABLET 1 mg every Sun, 0.5 mg daily * CYANOCOBALAMIN (VIT B-12) 1,0* Inject 1 mL intramuscularly o* MOMETASONE 0.1 % TOPICAL CREAM Apply 1 application to affect* HONEY 80 % TOPICAL GEL Use as directed X HYDROCODONE 5 MG-ACETAMINOPHE* Take 1 tablet by mouth every * COMPOUNDED PRESCRIPTION MEDI-HONEY FOR PRESSURE ULCER* NYSTATIN 100,000 UNIT/GRAM TO* Apply 1 application to affect* Patient not taking: Reported on 07/06/2018 AMLODIPINE 5 MG TABLET Take 1 tablet by mouth once d* SIMVASTATIN 20 MG TABLET Take 1 tablet by mouth daily * PANTOPRAZOLE 40 MG TABLET,DEL* Take 40 mg by mouth once karyna* FERROUS SULFATE 325 MG (65 MG* Take 1 tablet by mouth twice * X LISINOPRIL 40 MG TABLET Take 1 tablet by mouth every * X LEVOTHYROXINE 75 MCG CAPSULE Take 75 mcg by mouth once deana* POLYETHYLENE GLYCOL 3350 17 G* 17 gram/8 oz water by mouth d* Problem List As Of Date 05/26/2018 Noted Resolved IRON DEFIC ANEMIA NOS [D50.9] INVALID FOR* Carpal tunnel syndrome [G56.00] INVALID FOR*02/21/2015 OSTEOPOROSIS NOS [M81.0] More... 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 ASTHMA UNSPECIFIED [J45.909] INVALID FOR* Open wound of knee, leg (except thigh), and ank*INVALID FOR*02/21/2015 Primary localized osteoarthrosis, lower leg [M1*INVALID FOR*02/21/2015 ADJUSTMENT DISORDER WITH DEPRESSED MOOD [F43.21]INVALID FOR* S/P RIGHT HIP JOINT REPLACEMENT [Z96.649] INVALID FOR*02/21/2015 LT HIP, COMPLIC MEDICAL LOGISTICS SPECIALIST JOINT DEVICE [996.77] [T*INVALID FOR*02/17/2012 Priority: D More... RIGHT KNEE RHEUM ARTHRITIS [714.2] [M05.60] INVALID FOR* S/P RIGHT KNEE REPLACEMENT [V43.65] [Z96.659] INVALID FOR*12/31/2016 LT KNEE, INFEC/INFLAM-MEDICAL LOGISTICS SPECIALIST JOINT DEV [996.66]*INVALID FOR*02/21/2015 SUMMARY [V999.95] INVALID FOR* More... Abnormal Stress Test [R94.39] INVALID FOR* Priority: A More... Hypertension [I10] INVALID FOR* Priority: C More... Femoral DVT (deep venous thrombosis) (HCC) [I82*INVALID FOR*02/21/2015 More... 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 Rheumatoid arthritis involving multiple sites (*INVALID FOR* Chronic anticoagulation [Z79.01] INVALID FOR* C. 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] INVALID FOR* Vitamin B12 deficiency [E53.8] INVALID FOR* Recurrent deep vein thrombosis (DVT) (HCC) [I82*INVALID FOR* Encounter Status:Closed by AURELIA FAIRBANKS on 08/28/18 CBC-COMPLETE BLOOD CNT Collected: 05/04/2018 Status: F Source: DAEV NO DIFF 10:45 AM [facility] REPOSITORY TYPE CODE TESTS RESULT OUT OF RANGE REFERENCE UNITS LAB L100.1000 4.4-11.0 K/mm3 Normal WBC 9.0 LAB L100.1200 4.2-5.4 M/mm3 Low RBC 3.47 LAB L100.1300 12.0-15.0 g/dl Low HGB 8.6 LAB L100.1400 37-47 % Low HCT 28.1 LAB L100.1500 81-99 fL Normal MCV 81.0 LAB L100.1600 27.0-32.0 pg Low MCH 24.8 LAB L100.1700 32-36 g/gl Low MCHC 30.6 LAB L100.1810 11.6-14.6 % High RDW CV 17.0 LAB L100.1820 35.1-43.9 fl High RDW SD 49.9 LAB L100.1900 150-450 K/mm3 High PLT 673 LAB L100.2000 6.2-12.0 fl Normal MPV 8.7 Performed By: #### L100.0500 #### [facility] [address] [place], [place], [address] COMPREHENSIVE METABOLIC Collected: 05/04/2018 Status: F Source: DAVE PRITCHETT 10:45 AM [facility] REPOSITORY TYPE CODE TESTS RESULT OUT OF RANGE REFERENCE UNITS LAB L501.0100 74-106 mg/dL Normal GLU 100 Result Comment: Fasting Glucose result from 100 to 125 mg/dL suggests IMPAIRED HOMEOSTASIS per A.D.A. criteria. Please note revised GLUCOSE reference range effective 2017. LAB L501.1000 7-18 mg/dL Normal BUN 11 LAB L501.1100 0.55-1.02 mg/dL Low CREAT,SERUM 0.45 Result Comment: The validity of the calculated GFR AND GFRAA in patients over 70 years has not been determined. Clinical correlation is essential. LAB L501.1110 >60 mL/min Normal EST GFR 142 Result Comment: Non- GFR Calc LAB L501.1115 >60 mL/min Normal EST GFR - AA 171 Result Comment: GFR Calc LAB L501.1255 ml/min Normal Estimated CRCL 36.95 LAB L501.1300 10-20 RATIO High BUN/CRE 24.3 LAB L501.1500 6.4-8. g/dL Normal 2 T PROT 6.4 LAB L501.1800 3.2-5. g/dL Low 0 ALB 2.2 LAB L501.1950 2.2-4. g/dL Normal 2 GLOB 4.2 LAB L501.2000 0.9-2. RATIO Low 4 A/G 0.5 LAB L501.2200 8.5-10 mg/dL Low .1 CA 8.2 LAB L501.4100 15-37 U/L Low AST 9 LAB L501.4305 45-117 U/L Normal ALK P 90 LAB L501.4405 13-56 U/L Low ALT < 6 LAB L501.4600 0.20-1 mg/dL Normal .00 T BILI 0.20 LAB L501.5300 136-14 mmol/L Normal 5 NA 140 LAB L501.5600 3.5-5. mmol/L Low 1 K 3.2 LAB L501.5900 98-107 mmol/L Normal CL 104 LAB L501.6100 21.0-3 mmol/L Normal 2.0 CO2 28.0 LAB L501.6200 5-15 Normal GAP 8 Performed By: #### L500.4050, L506.0500 #### [facility] [address] [facility] [place], [address] PREALBUMIN Collected: 05/04/2018 Status: F Source: DAVE 10:45 AM [facility] REPOSITORY TYPE CODE TESTS RESULT OUT OF REFERENCE UNITS RANGE LAB L506.0500 20.0-40.0 mg/dL Low PREALBUMIN 9.4 Performed By: #### L500.4050, L506.0500 #### [facility] [address] [facility] [place], [address] WOUND CTR HISTORY Observed: 04/30/2018 Status: F Source: DAVE AND PHYSICAL 5:33 PM [facility] REPOSITORY [facility] [address] [facility] [place] [address] Wound Ctr History AND Physical 04/30/18 1720 MR#: [id number] Acct: [id number] Name: DEMETRIO KAISER Rep #: [id number] : 1935 82 From: Wilbur CRISTOBAL PCP: Suman Stern III, MD Status: REG RCR Y Location: WC (1) Stage III pressure ulcer Status: Acute Current Visit: Yes Qualifiers: Pressure ulcer location: other site Qualified Code(s): L89.893 - Pressure ulcer of other site, stage 3 Code(s): L89.93 - Pressure ulcer of unspecified site, stage 3 Comment: coccyx (2) Excoriation of buttock Status: Acute Current Visit: Yes Qualifiers: Encounter type: initial encounter Qualified Code(s): S30.810A - Abrasion of lower back and pelvis, initial encounter Code(s): S30.810A - Abrasion of lower back and pelvis, initial encounter (3) Amputation of left lower extremity Status: Acute Current Visit: Yes Code(s): S88.912A - Complete traumatic amputation of left lower leg, level unspecified, initial encounter (4) Immobility Status: Acute Current Visit: Yes Code(s): Z74.09 - Other reduced mobility (5) Anemia Status: Acute Current Visit: No Code(s): D64.9 - Anemia, unspecified (6) Hyperlipidemia Status: Chronic Current Visit: No Code(s): E78.5 - Hyperlipidemia, unspecified (7) Hypertension Status: Chronic Current Visit: No Code(s): I10 - Essential (primary) hypertension (8) Osteoarthritis of hips, bilateral Status: Chronic Current Visit: No Code(s): M16.0 - Bilateral primary osteoarthritis of hip (9) Osteoporosis Status: Chronic Current Visit: No Code(s): M81.0 - Age- related osteoporosis without current pathological fracture History of Present Illness Date of Service: 04/30/18 Chief Complaint: stg 3 coccyx since November 2017 History of Wound: Patient presents today to the wound healing center for evaluation and treatment of a stage III pressure wound to her coccyx. She has a past medical history of left [id number] amputee, DVT, PE with long-term Coumadin anticoagulation, anemia, RA and OA. Patient and family believe the wound started around November 2017 due to pressure and constantly sitting in her chair. Her wound has been noted on multiple hospital admissions in the past. Cultures were previously done in January and demonstrated staph, Klebsiella, and Proteus and patient completed Levaquin and ampicillin therapy. The patient has also been in and out of the assisted. She is currently residing at home with her . Due to her amputation, her mobility is severely limited and she spends most of her time sitting in either her wheelchair or her reclining chair at home. She does have a hospital bed that she just recently started sleeping at night. She does state that she has an excoriated buttocks as well due to having to scoot from her wheelchair to reclining chair and wheelchair to bed. Her wound care thus far has consisted of calmoseptine applied twice daily. Denies any heavy drainage, though does state that the ulcer bleeds at times. Denies any systemic signs of infection at this time. The patient otherwise denies any fever, chills, nausea, vomiting, shortness of breath, chest pain or pressure, palpitations, orthopnea, lower extremity edema, syncope or presyncopal episodes. She denies trying offloading mechanisms at home at this time and does not have a wheelchair cushion. Past Medical History Past Medical History: Chronic Problems Osteoporosis (Chronic) Hypothyroidism (Chronic) Warfarin-induced coagulopathy (Chronic) hx VT-chronic Hypertension (Chronic) DVT (deep venous thrombosis) (Chronic) Hyperlipidemia (Chronic) Osteoarthritis of hips, bilateral (Chronic) Surgical History: cholecystectomy, total hip arthroplasty - Bilateral., total knee arthroplasty - Left., - - D AND C, [id number] 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 Allergies/Adverse Reactions: Allergies methotrexate Allergy (Verified 04/30/18 14:56) effect to liver arthritis medications Allergy (Uncoded 02/23/18 09:38) effected the liver Home Medications: Ambulatory Orders Medication Instructions Recorded Levothyroxine [Synthroid] 100 mcg PO DAILY 07/28/16 Lisinopril [Zestril] 40 mg PO DAILY 07/28/16 - Family History Maternal No pertinent history Paternal No pertinent history Lives: Spouse/ Significant Other Smoking Status: Never smoker Alcohol: None Drugs: None Review of Systems Constitutional: Denies: Chills, Fever, Weight Change Eyes: Denies: Pain, Vision Change HEENT: Denies: Difficulty Hearing, Difficulty Swallowing, Sinus Congestion Cardiovascular: Denies: Chest Pain, Palpitations Respiratory: Denies: Cough, Shortness of Breath Gastrointestinal: Denies: Diarrhea, Nausea, Vomiting Genitourinary: Denies: Dysuria, Hematuria Musculoskeletal: Reports: Joint Pain, Muscle pain, - - Limited mobility due to left lower extremity amputation Skin: Reports: Wounds - See HPI Neurological: Denies: Confusion Endocrine: Denies: Heat/ Cold Intolerance, Polydipsia, Polyuria Hematologic/ Lymphatic: Denies: Easy Bruising, Easy Bleeding - Physical Exam Vital Signs Temp Pulse Resp BP 98.2 F 97 16 127/86 H 04/30/18 14:22 04/30/18 14:22 04/30/18 14:22 04/30/18 14:22 General: Alert, Oriented x3, Cooperative, No apparent distress HEENT: PERRLA, EOMI Neck: Supple, No JVD Lungs: Clear to auscultation, Normal air movement, No rhonchi, No wheeze Cardiovascular: Regular rate, Regular Rhythm, Normal S1, Normal S2 Abdomen: Bowel Sounds Present, Soft, Non Tender Extremities: Capillary Refill Less than 3 Seconds, Edema - Generalized right lower extremity edema, - - Multiple arthritic changes noted on multiple joints upper and lower extremities Skin: Ulcer/ Wound - Stage III pressure ulcer present coccyx with moderate amount of slough present, surrounding excoriation, no heavy exudate or foul- smelling no signs of acute infection at this time, Excoriated - Excoriation present bilateral buttocks Wound Measurements and Assessment WC - Nurse 1 - General Ulcer Measurement Start: 04/30/18 13:54 Freq: Status: Active Protocol: Activity Type Activity Date Activity User E-Sign Co-Sign Detail Recorded Client Recorded Date Recorded By Document 04/30/18 14:22 DL [id number] 04/30/18 14:52 DL - Nurse 2 - General Ulcer CM Notes Start: 04/30/18 13:54 Freq: Status: Active Protocol: Activity Type Activity Date Activity User E-Sign Co-Sign Detail Recorded Client Recorded Date Recorded By Document 04/30/18 15:24 DV [id number] 04/30/18 15:40 DV Neurological: - - Examined in bed, patient is non-ambulatory Psych/Mental Status: Normal Affect, Alert and oriented to time, place, person, mood and affect Debridement Note Post-Debridement Measurements/Treatment WC - Nurse 2 - General Ulcer CM Notes Start: 04/30/18 13:54 Freq: Status: Active Protocol: Activity Type Activity Date Activity User E-Sign Co-Sign Detail Recorded Client Recorded Date Recorded By Document 04/30/18 15:24 DV [id number] 04/30/18 15:40 DV Wound Center Nurse 2 #2 Coccyx -Time 15:27 -Correct Patient Yes -Correct Side, Site, Position Yes Wound debrided: Stage III pressure ulcer coccyx Type of Debridement: Excisional debridement Anesthesia Used: 5% Lidocaine Gel Depth: in the subcutaneous layer Percentage of wound debrided: 100 Instrument Used: 5mm curette Tissue Removed: Slough and devitalized tissue Severity: Fat Layer Exposed Amount of bleeding with debridement: Mild Bleeding Controlled with: Pressure Patient tolerated procedure well Assessment/Plan Active Problems Stage III pressure ulcer (Acute) coccyx Excoriation of buttock (Acute) Amputation of left lower extremity (Acute) Immobility (Acute) Assessment: See above diagnoses Plan: The patient was seen and examined at the wound center today and was updated on the plan of care. A subcutaneous debridement was performed today. The patient tolerated the procedure well. The patients wound care will consist of: Aquacel AG covered with up to foam to stage III coccyx and continue with calmoseptine to excoriation of buttocks. Wound cultures were collected. Baseline bloodwork ordered. Patient educated on the importance of diet on wound healing and instructed to increase protein and vitamin C intake. Patient verbalized understanding. Due to patient's limited mobility and stage III pressure ulcer, she would benefit from the use of a sliding board and the use of a gel cushion for her wheelchair. Orders for the supplies will be given. Patient will follow up at wound healing center in one week or sooner if needed. This note was generated with Rixty dictation software. It may contain incorrect words, spelling, and punctuation that were not noted in checking the note before signing. Code Visit Office Visits / Consults: 35260 OV L4 Est 111xxx-113xx: 82401 Angie subq tissue 20 sq cm/< 04/30/18 1733 <Electronically signed by Wilbur CRISTOBAL> Date Wilbur Aileen SUSU CC: Signed Observed: 04/30/2018 Status: F Source: [place] CULTURE, DEEP WOUND 3:30 PM [facility] REPOSITORY Comments: COCCYX ULCER STAGE III Gram Stain Gram Stain 4+ Red Blood Cells No White Blood Cells No organisms seen Wound Culture Growth from broth culture only. RESULTS CALLED TO WOUND CENTER NURSE LINE 05/06/18 0746 Marilu Ewing. Copy of report sent to Infection Control Printer [id number] 05/06/18 0747 OLIVIA. ORGANISM 1: Meth. resistant Staph. aureus Amount Growth Growth Meth. resistant Staph. aureus: REACTION Benzylpenicillin NF >=0.5 R Cefoxitin *NF + Clindamycin $$ <=0.25 R Inducable Clindamycin Res[place] + Erythromycin $ 1 R Gentamicin $ <=0.5 S Levofloxacin $ >=8 R Linezolid $$$$ 2 S Oxacillin NF >=4 R Tigecycline $$$$ <=0.12 S Rifampin $$ <=0.5 S Tetracycline NF <=1 S Trimethoprim/Sulfametho $ <=10 S Vancomycin $ 1 S (NF) indicates non-formulary drug at [facility]. Approval by Infectious Disease Specialist required before non-formulary drugs may be ordered and/or dispensed. * CLSI guidelines does not recommend testing of cephalosporins. This interpretation is deduced from Beta-lactam/penicillin results. Cult, Anaerobic No growth in 5 days. Performed By: #### M100.1500 #### [facility] [place], [address] [facility] Observed: 03/30/2018 Status: COMPLETED Source: [place] 12:00 AM [facility] REPOSITORY Telephone (FAMPWS) DEMETRIO KAISER ([id number]) 1935 F Date Time Provider Department 03/30/18 SUMAN STERN III During your visit today, we recorded the following information about you: Kelsie Thompson (Doris)MARI 03/30/2018 11:39 AM Signed Received fax: Current INR 2.8 on 03/30/2018 Current dose of coumadin is 1 mg daily through Friday 03/30 and recheck INR on 03/30 Previous INR (date and result) 2.5 on 03/26/2018 Kelsie Thompson CMA Recent prior history: 03/26/2018-Ramin INR 2.5 Current dose of coumadin is holding coumadin since 03/19, prior: (from patient-- 4 mg coumadin on 03/12, ?2mg 03/13, 4 mg 03/14 and 2 mg 03/15, 1 mg 03/16, 1 mg 03/17, 2 mg 03/18 and no coumadin yesterday since high INR reading last night.) Previous INR (date and result) 6.8 on 03/23/2018 ? 03/23/2018-Jaime Last INR: ?INR was 6.8 ? Current dose of coumadin is:?on hold 03/19, 03/20, 03/21, 03/22. ? Last date of dose change:?03/20/2018. ? Previous INR (date and result):?6.2 [facility] 03/20/2018? ? 03/20/2018-Ramin INR was 6.2 Confirmed INR supratherapeutic. Hold coumadin until 03/23 and recheck INR on Friday 03/23. ? 03/12/2018-Christelle INR was 1.6 Advise patient to take 4 mg today (thur 03/12/2018) 2 mg Fri, 4 mg Fri and 2 mg Friday. ?Check next INR Friday morning 03/16/2018 Usual dose: 1 mg every Friday aAND 0.5 mg on all other days Suman Stern III 03/30/2018 12:23 PM Signed Switch to Coumadin 1 mg every Friday, 0.5 mg daily all other days. Recheck INR in 1 week. Suman Stern III, MD, FAAFP Suman Stern III 03/30/2018 12:23 PM Signed Coumadin 1 mg every Friday, 0.5 mg daily all other days. recheck INR 1 wk JOBY Emery MD, Kimberly ([facility]), [place] 03/30/2018 2:03 PM Signed Detailed message left for patient on home phone. Called cell phone, lost connection. Spoke with patient, read back instructions, voiced understanding. DORIS Vela Kimberly ([facility]), [place] 03/30/2018 2:04 PM Signed Tracker updated. Kelsie Thompson CMA Allergies As of Date: 03/30/2018 Noted Allergy Reaction AUGMENTIN (AMOXICILLIN-POT CLAVUL*04/13/2010 CEFTRIAXONE 04/13/2010 CELECOXIB 04/18/2003 Comments: itch IMURAN (AZATHIOPRINE SODIUM) 04/13/2010 LODINE (ETODOLAC) 02/17/2012 16 - Unknown METHOTREXATE 04/18/2003 Comments: affected liver(cirrhosis) NSAIDS (NON-STEROIDAL ANTI-INFLAM*04/18/2003 Comments: Hives Patient tolerates aspirin PENICILLINS 04/18/2003 Comments: nauseated and vomiting PURINE ANTAGONIST ANTIMETABOLITE 04/18/2003 Comments: nausea and vomiting SULFAMETHOXAZOLE-TRIMETHOPRIM 02/17/2012 2 - Rash Date Reviewed: 03/24/2018 Reviewed by: Rufino Dumas (Marine Electrician Apprentice) - Fully Assessed Reason for Visit: Anticoagulation [8] Order(s):PROTHROMBIN TIME/PT [SQPT] Order #: [id number] Prescriptions as of 03/30/2018 Sig: WARFARIN 1 MG TABLET 1 mg Fridays and 0.5 mg all o* HONEY 80 % TOPICAL GEL Use as directed HYDROCODONE 5 MG-ACETAMINOPHE* Take 1 tablet by mouth every * COMPOUNDED PRESCRIPTION MEDI-HONEY FOR PRESSURE ULCER* NYSTATIN 100,000 UNIT/GRAM TO* Apply 1 application to affect* AMLODIPINE 5 MG TABLET Take 1 tablet by mouth once d* SIMVASTATIN 20 MG TABLET Take 1 tablet by mouth daily * X WARFARIN 1 MG TABLET 1 mg Fridays and 0.5 mg all o* CYANOCOBALAMIN (VIT B-12) 1,0* Inject 1,000 mcg intramuscula* PANTOPRAZOLE 40 MG TABLET,DEL* Take 40 mg by mouth once karyna* CYANOCOBALAMIN (VIT B-12) 1,0* Inject 1 mL intramuscularly o* FERROUS SULFATE 325 MG (65 MG* Take 1 tablet by mouth twice * MOMETASONE 0.1 % TOPICAL CREAM Apply 1 application to affect* LISINOPRIL 40 MG TABLET Take 1 tablet by mouth every * LEVOTHYROXINE 75 MCG CAPSULE Take 75 mcg by mouth once deana* POLYETHYLENE GLYCOL 3350 17 G* 17 gram/8 oz water by mouth d* Problem List As Of Date 03/30/2018 Noted Resolved IRON DEFIC ANEMIA NOS [D50.9] INVALID FOR* Carpal tunnel syndrome [G56.00] INVALID FOR*02/21/2015 OSTEOPOROSIS NOS [M81.0] More... 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 ASTHMA UNSPECIFIED [J45.909] INVALID FOR* Open wound of knee, leg (except thigh), and ank*INVALID FOR*02/21/2015 Primary localized osteoarthrosis, lower leg [M1*INVALID FOR*02/21/2015 ADJUSTMENT DISORDER WITH DEPRESSED MOOD [F43.21]INVALID FOR* S/P RIGHT HIP JOINT REPLACEMENT [Z96.649] INVALID FOR*02/21/2015 LT HIP, COMPLIC MEDICAL LOGISTICS SPECIALIST JOINT DEVICE [996.77] [T*INVALID FOR*02/17/2012 Priority: D More... RIGHT KNEE RHEUM ARTHRITIS [714.2] [M05.60] INVALID FOR* S/P RIGHT KNEE REPLACEMENT [V43.65] [Z96.659] INVALID FOR*12/31/2016 LT KNEE, INFEC/INFLAM-MEDICAL LOGISTICS SPECIALIST JOINT DEV [996.66]*INVALID FOR*02/21/2015 SUMMARY [V999.95] INVALID FOR* More... Abnormal Stress Test [R94.39] INVALID FOR* Priority: A More... Hypertension [I10] INVALID FOR* Priority: C More... Femoral DVT (deep venous thrombosis) (HCC) [I82*INVALID FOR*02/21/2015 More... 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 Rheumatoid arthritis involving multiple sites (*INVALID FOR* Chronic anticoagulation [Z79.01] INVALID FOR* C. difficile enteritis [A04.72] INVALID FOR*04/01/2017 USP prescription opiate use [Z79.891] INVALID FOR* Vitamin B12 deficiency [E53.8] INVALID FOR* Recurrent deep vein thrombosis (DVT) (HCC) [I82*INVALID FOR* Encounter Status:Closed by KELSIE THOMPSON CMA on 03/30/18 PROGRESS Observed: 03/24/2018 Status: COMPLETED Source: [place] 4:43 PM [facility] REPOSITORY HNO ID: [id number] Author: Charlene Pace LPN Service: (none) Author Type: (none) Type: Progress Notes Filed: 03/24/2018 4:44 PM Note Text: Patient notified of instructions PROGRESS Observed: 03/24/2018 Status: COMPLETED Source: [place] 1:45 PM [facility] REPOSIT[facility] HNO ID: [id number] Author: Andrew Au Service: (none) Author Type: Physician Type: Progress Notes Filed: 03/24/2018 4:44 PM Note Text: This note was created using NoteWriter. Subjective Demetrio Kaiser is a 82 year old female. Review of Systems Objective There were no vitals taken for this visit. Physical Exam Assessment and Plan Hold and recheck two days PROGRESS Observed: 03/24/2018 Status: COMPLETED Source: [place] 11:50 AM [facility] REPOSITORY HNO ID: [id number] Author: Olga Manuel RN Service: (none) Author Type: (none) Type: Progress Notes Filed: 03/24/2018 11:52 AM Note Text: patient had inr completed at [facility] patients inr is 4.7 (patients inr range is 2.0-3.0) patient is currently holding patients last dose change unsure at this time due to patient usually dose home checks patient has had changes in medication but list has been updated at appt with [employer] and no change in diet Advised patient that they would be contacted regarding medication dose and when to follow up after information is reviewed by provider. After provider review please contact the patient with information and schedule follow up appointment with coumadin clinic. WOUND Observed: 03/24/2018 Status: F Source: [place] CULTURE/STAIN 11:35 AM [facility] REPOSITORY Sp. Request/Comment: - Swab Smear Result - No organisms seen Moderate Polymorphonuclear leukocytes Culture Result - Few Methicillin resistant Staphylococcus aureus --> ABNORMAL ALERT Rare skin marcus ORGANISM: Methicillin resistant Staphylococcus aureus METHOD: Minimum inhibitory concentration(Vitek) Antibiotic Interp JOSE ALFREDO Status Erythromycin RESISTANT F Clindamycin RESISTANT F Inducible clindamycin resistance detected. Tetracycline SUSCEPTIBLE <=1 F Vancomycin SUSCEPTIBLE 1 F Oxacillin RESISTANT >=4 F Oxacillin resistant staphylococci are resistant to all beta lactam antibiotics (except new cephalosporins with anti MRSA activity). Trimeth sulfameth SUSCEPTIBLE <=10 F Gentamicin SUSCEPTIBLE <=0.5 F Rifampin SUSCEPTIBLE <=0.5 F Rifampin should not be used alone for antimicrobial therapy. Daptomycin SUSCEPTIBLE 0.5 F Linezolid SUSCEPTIBLE 2 F Levofloxacin RESISTANT >=8 F Doxycycline SUSCEPTIBLE <=0.5 F Performed By: #### WCUL #### [facility] [address] [place], [place] [address] PROGRESS Observed: 03/24/2018 Status: COMPLETED Source: [place] 11:10 AM [facility] REPOSITORY HNO ID: [id number] Author: Rufino Dumas (Marine Electrician Apprentice) Service: (none) Author Type: Nurse Practitioner Type: Progress Notes Filed: 03/24/2018 5:17 PM Note Text: ? 3:55 PM Note TRANSITION CARE MANAGEMENT (TCM) INITIAL CONTACT Supervisor Lump Room Outreach ? Provider Action/FYI: Patient was d/c from [facility] 03-11-18. She is clear on her Coumadin. Put on Tamiflu there for precaution, one out break at facility. ? ? ? Initial contact with patient post discharge, spoke to patient. Patient identified by name and . ? SUMMARY: -Pt discharged from [facility] on 03/11/18. -Admitted for: wound on coccyx ? Do you have a hospital follow up appointment with your PCP? Appointment on 03/24/18 with Rufino Dumas NP. Yes. Remind patient of appointment date, time, and location. If not within 14 calendar days of discharge - please reschedule accordingly. ? MEDICATIONS: Many patients have questions or concerns about their medications once they are home. Were you prescribed any new medications? Yes If yes, what are those medications? Tamiflu ? Were you told to hold any medications? No Were any of your medications discontinued? No ? Do you have any questions about getting or taking your medications? No ? Your discharge instructions/After visit Summary (AVS) are important in guiding you through the recovery process. Is there anything I might help you understand? No ? Do you have all the necessary equipment and supplies at home? Yes ? Medical records from recent hospitalization: Requested from outside hospital. They will be faxing to Dr. Michele Stern per [facility]. TRANSITION CARE MANAGEMENT (TCM) INITIAL CONTACT: Provider Documentation Chief Complaint Patient presents with: Recheck: TCM follow up from assisted discharge HPI Demetrio Kaiser is a 82 year old female who presents here today for Above Complaints. Adm to [facility] 02/25/18-03/11/18 For wound care coccyx decub. Admission and discharge as noted. She is now home with [facility] out of [place]. She has personal aides that come in daily to help with her care and LIVING ADVISOR weekly to assess the wound. Current dressing is medihoney dressing that is changed nearly everyday as the sliding activity will interrupt the dressing. [facility] does not have the product and asking rx be sent to [facility]. They currently do not have product and will call patient to let her know whether they will be able to get for her or not. Daughter present at visit is concerned about possible infection. Previous culture reviewed: grew staph Klebsiella and Proteus species. Was on 2 different antibiotics and no re-culture done since. Admits poor appetite, forcing herself to eat. Drinking Boost every morning for breakfast. Also due to INR check today. INR elevated 6.8 yesterday. Antibiotics are completed. Coumadin currently on hold. - Needing refill on [place]. Almost out. Taking qid. Would like to take rx with her to same trip. Past medical history, appointments, medications, allergies reviewed. Previous Medical History PAST MEDICAL HISTORY Diagnosis Date - Abnormal stress test 06/14/2010 C yesterday 06/15 just showed mild irregularities, therefore she had a false positive stress test Continue asa 81, metoprolol and other bp agents (norvasc, HCTZ, lisinopril) Her LDL is 79 and she has had issues with myopathy in the past therefore will hold off on statin since only mild irregularities by cath. TTE 06/16 showed normal EF, 50-55%. 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 10/08/2010 - USP prescription opiate use 12/08/2017 - Osteoarthritis of hip - Osteoporosis, unspecified Osteoporosis - Other specified anemias - Peripheral vascular disease (HCC) - Pulmonary embolus (HCC) 07/04/2010 - Rheumatoid arthritis involving multiple sites ([facility]) 10/10/2015 - Rheumatoid arthritis(714.0) - Unspecified hemorrhoids without mention of complication Hemorrhoids - Vitamin B12 deficiency 02/09/2018 Previous Surgical History PAST SURGICAL HISTORY Procedure Laterality Date - AMPUTATE LEG AT THIGH Left 02/2012 - CHOLECYSTECTOMY - COLONOSCOP W/ OR W/O [facility] SPEC 01-28-05 Colonoscopy-repeat in - COLONOSCOP W/ OR W/O [facility] SPEC 01/26/2018 normal colonoscopy - EGD W/O [facility] SPECIMEN W/BX 01/26/2018 duodenal AVM - non bleeding - EGD W/O OR W/BRUSH/WASH EGD - TOTAL HIP REPLACEMENT Hip replacement, total LEFT AND RIGHT - TOTAL KNEE REPLACEMENT Knee replacement, total BILATERAL Family History FAMILY HISTORY Problem Relation Age of Onset - Hearing Loss Mother - Heart Father - Stroke Father - Cancer Sister SKIN - Cancer Brother SKIN - Diabetes Brother - Diabetes Sister - Stroke Brother - ASHD [OTHER] Brother - Heart Other 2 nephews from heart disease - ASHD [OTHER] Brother CABG 4 Patient Allergies ALLERGIES Allergen Reactions - Augmentin [Amoxicil* - Ceftriaxone - Celecoxib itch - Imuran [Azathioprin* - Lodine [Etodolac] Unknown - Methotrexate affected liver(cirrhosis) - Nsaids (Non-Steroid* Hives Patient tolerates aspirin - Penicillins nauseated and vomiting - Purine Antagonist A* nausea and vomiting - Sulfamethoxazole-Tr* Rash Current Medications Current Outpatient Prescriptions on File Prior to Visit: nystatin (NYSTOP) powder Apply 1 application to affected area twice daily. HYDROcodone-acetaminophen (NORCO) 5-325 mg per tablet Take 1 tablet by mouth every 6 hours as needed for Pain for up to 24 days. amLODIPine (NORVASC) 5 mg tablet Take 1 tablet by mouth once daily. simvastatin (ZOCOR) 20 mg tablet Take 1 tablet by mouth daily at bedtime. warfarin (COUMADIN) 1 mg tablet 1 mg Fridays and 0.5 mg all other days cyanocobalamin (VITAMIN B-12) 1,000 mcg/mL soln Inject 1,000 mcg intramuscularly once each week. pantoprazole DR (PROTONIX) 40 mg tablet Take 40 mg by mouth once daily. cyanocobalamin 1,000 mcg/mL soln Inject 1 mL intramuscularly once every month. ferrous sulfate 325 mg (65 mg iron) tablet Take 1 tablet by mouth twice daily. mometasone (ELOCON) 0.1 % cream Apply 1 application to affected area once daily. lisinopril (ZESTRIL, PRINIVIL) 40 mg tablet Take 1 tablet by mouth every morning. Levothyroxine 75 mcg cap Take 75 mcg by mouth once daily. polyethylene glycol 3350 (MIRALAX) 17 gram/dose powder 17 gram/8 oz water by mouth daily COMPOUNDED PRESCRIPTION [facility] FOR PRESSURE ULCER COCCYX AREA 1.5 OZ TUBE FLUoxetine (PROZAC) 20 mg capsule Take 1 capsule by mouth once daily. albuterol HFA 90 mcg/actuation inhaler Inhale 2 Puffs as instructed every 4 hours as needed. FOR WHEEZING AND SHORTNESS OF BREATH. No current facility-administered medications on file prior to visit. Social History Social History Marital status: Spouse name: Years of education: Number of children: Social History Main Topics Smoking status: Never Smoker Smokeless tobacco: Never Used Alcohol use: No Drug use: No Review of Symptoms REVIEW OF SYSTEMS PAIN ASSESSMENT: HISTORY OF CHRONIC PAIN OR CURRENTLY BEING TREATED FOR A CHRONIC PAIN CONDITION: Yes, CONDITION: Rheumatoid Arthritis TREATING PROVIDER: Dr. Stern LAST SEEN: 01/2018 OARRS: Yes, reviewed and No discrepancies REVIEW OF SYSTEMS GENERAL: Weight loss RESPIRATORY: Negative for cough, hemoptysis, wheezing, COPD, dyspnea or shortness of breath CARDIOVASCULAR: Negative for chest pain, leg swelling, hypertension, CHF or palpitations GI: No nausea, vomiting, or diarrhea PSYCH: Positive f.depression: denies SI/HI thoughts, declines medications at this time. EXAM: BP 112/70 (BP Site: Left Arm, BP Position: Sitting, BP Cuff Size: Regular Adult) Pulse 68 Temp 37.2 ?C (98.9 ?F) (Tympanic) Resp 16 OBJECTIVE: APPEARANCE Well appearing, alert, in no acute distress, well-hydrated, well nourished., She was seen while sitting on a power scooter. It is impossible to get her out of the scooter onto the exam table. She is alert and answers all questions appropriately. NECK Supple, no adenopathy; thyroid symmetric, normal size, HEART RRR with normal S1 and S2, no murmurs, no gallops, no JVD appreciated LUNG clear to auscultation EXTREMITIES she has limited and weak range of motion of both shoulders with weak chain maker hand bilaterally. She is status post left [id number] amputation. Her right lower leg has some excoriations but no tenderness or warmth. Normal color . Rheumatoid arthritis changes bilateral hands. NEURO Awake, alert and oriented x 3, No involuntary motions. and SKIN--Able to have patient lean from chair onto exam table with help of daughter, able to look at pressure ulcer to coccyx. Unable to stage. Area does have purulent material, no foul odor noted. Dressing reapplied. Culture taken. ? Health Maintenance List DTAP,TDAP,TD(1 - Tdap) due on 1956 DIABETES SCREEN due on 12/08/2020 BONE DENSITY Completed ADULT PREVNAR-13 Completed INFLUENZA Completed PNEUMOVAX AGE 65 AND OVER WITH 5YR LOOKBACK Completed Data reviewed Records from [facility], Medication List. ASSESSMENT/PLAN: 1. Decubitus ulcer of buttock, unspecified laterality, unspecified ulcer stage - ICD9: 707.05, 707.20, ICD10: L89.309 (primary diagnosis) - To continue current regimen at this time. Pending culture. She may need Wound Center referral - WOUND CULTURE AND GRAM STAIN 2. Rheumatoid arthritis involving multiple sites, unspecified rheumatoid factor presence (HCC) - ICD9: 714.0, ICD10: M06.9 OARRS website checked and validated. All prescriptions have been APPROPRIATELY filled. No suspicious activity was identified.- 03/24/2018 by Rufino Dumas, MSN SELVAGE MACHINE OPERATOR.CHARGE ACCOUNT CLERK - HYDROCODONE 5 MG-ACETAMINOPHEN 325 MG TABLET 3. Essential hypertension - ICD9: 401.9, ICD10: I10 - good control - Continue current medication(s) - Goal of BP <130/80 4. Chronic anticoagulation - ICD9: V58.61, ICD10: Z79.01 - Apt facilitated today to be seen at [facility]. 5. Iron deficiency anemia, unspecified iron deficiency anemia type - ICD9: 280.9, ICD10: D50.9 -Continue with iron supplement. Rufino Dumas, MSN SELVAGE MACHINE OPERATOR.CHARGE ACCOUNT CLERK CNOV Observed: 03/24/2018 Status: COMPLETED Source: [place] 10:40 AM [facility] REPOSITORY Office Visit (FAMPWS) DEMETRIO KAISER ([id number]) 1935 F Date Time Provider Department 03/24/18 10:40 AM RUFINO DUMAS (STOCKBROKING DEALER) FAMPWS During your visit today, we recorded the following information about you: Temperature Pulse Respiration Blood pressure 98.9 degrees 68/minute 16/minute 112/70 Rufino Dumas (Marine Electrician Apprentice) 03/24/2018 5:17 PM Signed ? 3:55 PM Note TRANSITION CARE MANAGEMENT (TCM) INITIAL CONTACT Supervisor Lump Room Outreach ? Provider Action/FYI: Patient was d/c from [facility]. She is clear on her Coumadin. Put on Tamiflu there for precaution, one out break at facility. ? ? ? Initial contact with patient post discharge, spoke to patient. Patient identified by name and . ? SUMMARY: -Pt discharged from [facility] on 03/11/18. -Admitted for: wound on coccyx ? Do you have a hospital follow up appointment with your PCP? Appointment on 03/24/18 with Rufino Dumas STOCKBROKING DEALER. Yes. Remind patient of appointment date, time, and location. If not within 14 calendar days of discharge - please reschedule accordingly. ? MEDICATIONS: Many patients have questions or concerns about their medications once they are home. Were you prescribed any new medications? Yes If yes, what are those medications? Tamiflu ? Were you told to hold any medications? No Were any of your medications discontinued? No ? Do you have any questions about getting or taking your medications? No ? Your discharge instructions/After visit Summary (AVS) are important in guiding you through the recovery process. Is there anything I might help you understand? No ? Do you have all the necessary equipment and supplies at home? Yes ? Medical records from recent hospitalization: Requested from outside hospital. They will be faxing to Dr. Michele Stern per [facility]. TRANSITION CARE MANAGEMENT (TCM) INITIAL CONTACT: Provider Documentation Chief Complaint Patient presents with: Recheck: TCM follow up from assisted discharge HPI Demetrio Kaiser is a 82 year old female who presents here today for Above Complaints. Adm to [facility] 02/25/18-03/11/18 For wound care coccyx decub. Admission and discharge as noted. She is now home with [facility] out of [place]. She has personal aides that come in daily to help with her care and LIVING ADVISOR weekly to assess the wound. Current dressing is medihoney dressing that is changed nearly everyday as the sliding activity will interrupt the dressing. [facility] does not have the product and asking rx be sent to [facility]. They currently do not have product and will call patient to let her know whether they will be able to get for her or not. Daughter present at visit is concerned about possible infection. Previous culture reviewed: grew staph Klebsiella and Proteus species. Was on 2 different antibiotics and no re-culture done since. Admits poor appetite, forcing herself to eat. Drinking Boost every morning for breakfast. Also due to INR check today. INR elevated 6.8 yesterday. Antibiotics are completed. Coumadin currently on hold. - Needing refill on [place]. Almost out. Taking qid. Would like to take rx with her to same trip. Past medical history, appointments, medications, allergies reviewed. Previous Medical History PAST MEDICAL HISTORY Diagnosis Date - Abnormal stress test 06/14/2010 C yesterday 06/15 just showed mild irregularities, therefore she had a false positive stress test Continue asa 81, metoprolol and other bp agents (norvasc, HCTZ, lisinopril) Her LDL is 79 and she has had issues with myopathy in the past therefore will hold off on statin since only mild irregularities by cath. TTE 06/16 showed normal EF, 50-55%. 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 10/08/2010 - USP prescription opiate use 12/08/2017 - Osteoarthritis of hip - Osteoporosis, unspecified Osteoporosis - Other specified anemias - Peripheral vascular disease (HCC) - Pulmonary embolus (HCC) 07/04/2010 - Rheumatoid arthritis involving multiple sites (HCC) 10/10/2015 - Rheumatoid arthritis(714.0) - Unspecified hemorrhoids without mention of complication Hemorrhoids - Vitamin B12 deficiency 02/09/2018 Previous Surgical History PAST SURGICAL HISTORY Procedure Laterality Date - AMPUTATE LEG AT THIGH Left 02/2012 - CHOLECYSTECTOMY - COLONOSCOP W/ OR W/O [facility] SPEC 01-28-05 Colonoscopy-repeat in - COLONOSCOP W/ OR W/O [facility] SPEC 01/26/2018 normal colonoscopy - EGD W/O [facility] SPECIMEN W/BX 01/26/2018 duodenal AVM - non bleeding - EGD W/O OR W/BRUSH/WASH EGD - TOTAL HIP REPLACEMENT Hip replacement, total LEFT AND RIGHT - TOTAL KNEE REPLACEMENT Knee replacement, total BILATERAL Family History FAMILY HISTORY Problem Relation Age of Onset - Hearing Loss Mother - Heart Father - Stroke Father - Cancer Sister SKIN - Cancer Brother SKIN - Diabetes Brother - Diabetes Sister - Stroke Brother - ASHD [OTHER] Brother - Heart Other 2 nephews from heart disease - ASHD [OTHER] Brother CABG 4 Patient Allergies ALLERGIES Allergen Reactions - Augmentin [Amoxicil* - Ceftriaxone - Celecoxib itch - Imuran [Azathioprin* - Lodine [Etodolac] Unknown - Methotrexate affected liver(cirrhosis) - Nsaids (Non-Steroid* Hives Patient tolerates aspirin - Penicillins nauseated and vomiting - Purine Antagonist A* nausea and vomiting - Sulfamethoxazole-Tr* Rash Current Medications Current Outpatient Prescriptions on File Prior to Visit: nystatin (NYSTOP) powder Apply 1 application to affected area twice daily. HYDROcodone-acetaminophen (NORCO) 5-325 mg per tablet Take 1 tablet by mouth every 6 hours as needed for Pain for up to 24 days. amLODIPine (NORVASC) 5 mg tablet Take 1 tablet by mouth once daily. simvastatin (ZOCOR) 20 mg tablet Take 1 tablet by mouth daily at bedtime. warfarin (COUMADIN) 1 mg tablet 1 mg Fridays and 0.5 mg all other days cyanocobalamin (VITAMIN B-12) 1,000 mcg/mL soln Inject 1,000 mcg intramuscularly once each week. pantoprazole DR (PROTONIX) 40 mg tablet Take 40 mg by mouth once daily. cyanocobalamin 1,000 mcg/mL soln Inject 1 mL intramuscularly once every month. ferrous sulfate 325 mg (65 mg iron) tablet Take 1 tablet by mouth twice daily. mometasone (ELOCON) 0.1 % cream Apply 1 application to affected area once daily. lisinopril (ZESTRIL, PRINIVIL) 40 mg tablet Take 1 tablet by mouth every morning. Levothyroxine 75 mcg cap Take 75 mcg by mouth once daily. polyethylene glycol 3350 (MIRALAX) 17 gram/dose powder 17 gram/8 oz water by mouth daily COMPOUNDED PRESCRIPTION [facility]I-[facility] FOR PRESSURE ULCER COCCYX AREA 1.5 OZ TUBE FLUoxetine (PROZAC) 20 mg capsule Take 1 capsule by mouth once daily. albuterol HFA 90 mcg/actuation inhaler Inhale 2 Puffs as instructed every 4 hours as needed. FOR WHEEZING AND SHORTNESS OF BREATH. No current facility-administered medications on file prior to visit. Social History Social History Marital status: Spouse name: Years of education: Number of children: Social History Main Topics Smoking status: Never Smoker Smokeless tobacco: Never Used Alcohol use: No Drug use: No Review of Symptoms REVIEW OF SYSTEMS PAIN ASSESSMENT: HISTORY OF CHRONIC PAIN OR CURRENTLY BEING TREATED FOR A CHRONIC PAIN CONDITION: Yes, CONDITION: Rheumatoid Arthritis TREATING PROVIDER: Dr. Stern LAST SEEN: 01/2018 OARRS: Yes, reviewed and No discrepancies REVIEW OF SYSTEMS GENERAL: Weight loss RESPIRATORY: Negative for cough, hemoptysis, wheezing, COPD, dyspnea or shortness of breath CARDIOVASCULAR: Negative for chest pain, leg swelling, hypertension, CHF or palpitations GI: No nausea, vomiting, or diarrhea PSYCH: Positive f.depression: denies SI/HI thoughts, declines medications at this time. EXAM: BP 112/70 (BP Site: Left Arm, BP Position: Sitting, BP Cuff Size: Regular Adult) Pulse 68 Temp 37.2 ?C (98.9 ?F) (Tympanic) Resp 16 OBJECTIVE: APPEARANCE Well appearing, alert, in no acute distress, well- hydrated, well nourished., She was seen while sitting on a power scooter. It is impossible to get her out of the scooter onto the exam table. She is alert and answers all questions appropriately. NECK Supple, no adenopathy; thyroid symmetric, normal size, HEART RRR with normal S1 and S2, no murmurs, no gallops, no JVD appreciated LUNG clear to auscultation EXTREMITIES she has limited and weak range of motion of both shoulders with weak chain maker hand bilaterally. She is status post left [id number] amputation. Her right lower leg has some excoriations but no tenderness or warmth. Normal color . Rheumatoid arthritis changes bilateral hands. NEURO Awake, alert and oriented x 3, No involuntary motions. and SKIN--Able to have patient lean from chair onto exam table with help of daughter, able to look at pressure ulcer to coccyx. Unable to stage. Area does have purulent material, no foul odor noted. Dressing reapplied. Culture taken. ? Health Maintenance List DTAP,TDAP,TD(1 - Tdap) due on 1956 DIABETES SCREEN due on 12/08/2020 BONE DENSITY Completed ADULT PREVNAR-13 Completed INFLUENZA Completed PNEUMOVAX AGE 65 AND OVER WITH 5YR LOOKBACK Completed Data reviewed Records from [facility] Medication List. ASSESSMENT/PLAN: 1. Decubitus ulcer of buttock, unspecified laterality, unspecified ulcer stage - ICD9: 707.05, 707.20, ICD10: L89.309 (primary diagnosis) - To continue current regimen at this time. Pending culture. She may need Wound Center referral - WOUND CULTURE AND GRAM STAIN 2. Rheumatoid arthritis involving multiple sites, unspecified rheumatoid factor presence (HCC) - ICD9: 714.0, ICD10: M06.9 OARRS website checked and validated. All prescriptions have been APPROPRIATELY filled. No suspicious activity was identified.- 03/24/2018 by Rufino Dumas, MSN SELVAGE MACHINE OPERATOR.CHARGE ACCOUNT CLERK - HYDROCODONE 5 MG-ACETAMINOPHEN 325 MG TABLET 3. Essential hypertension - ICD9: 401.9, ICD10: I10 - good control - Continue current medication(s) - Goal of BP <130/80 4. Chronic anticoagulation - ICD9: V58.61, ICD10: Z79.01 - Apt facilitated today to be seen at [facility]. 5. Iron deficiency anemia, unspecified iron deficiency anemia type - ICD9: 280.9, ICD10: D50.9 -Continue with iron supplement. Rufino Dumas MSN SELVAGE MACHINE OPERATOR.CHARGE ACCOUNT CLERK Referring Provider: SUMAN STERN III [[id number]] Allergies As of Date: 03/24/2018 Noted Allergy Reaction AUGMENTIN (AMOXICILLIN-POT CLAVUL*04/13/2010 CEFTRIAXONE 04/13/2010 CELECOXIB 04/18/2003 Comments: itch IMURAN (AZATHIOPRINE SODIUM) 04/13/2010 LODINE (ETODOLAC) 02/17/2012 16 - Unknown METHOTREXATE 04/18/2003 Comments: affected liver(cirrhosis) NSAIDS (NON-STEROIDAL ANTI-INFLAM*04/18/2003 Comments: Hives Patient tolerates aspirin PENICILLINS 04/18/2003 Comments: nauseated and vomiting PURINE ANTAGONIST ANTIMETABOLITE 04/18/2003 Comments: nausea and vomiting SULFAMETHOXAZOLE-TRIMETHOPRIM 02/17/2012 2 - Rash Date Reviewed: 03/24/2018 Reviewed by: Rufino Dumas (Marine Electrician Apprentice) - Fully Assessed Reason for Visit: Recheck [92] Cmt: TCM follow up from assisted discharge Reason For Visit History Recorded Primary Visit Diagnosis:Decubitus ulcer of buttock, unspecified laterality, unspecified ulcer stage [L89.309] Other Visit Diagnoses:Rheumatoid arthritis involving multiple sites, unspecified rheumatoid factor presence (HCC) [M06.9] Essential hypertension [I10] Chronic anticoagulation [Z79.01] Iron deficiency anemia, unspecified iron deficiency anemia type [D50.9] Order(s):HYDROcodone-acetaminophen (NORCO) 5-325 mg per tabletTake 1 tablet by mouth every 6 hours as needed for Pain for up to 24 days. Earliest Fill Date: 03/24/18Disp: 100 tabletRfl: 0 WOUND CULTURE AND GRAM STAIN [SQWCUL] Order #: [id number] Prescriptions as of 03/24/2018 Sig: HYDROCODONE 5 MG-ACETAMINOPHE* Take 1 tablet by mouth every * NYSTATIN 100,000 UNIT/GRAM TO* Apply 1 application to affect* AMLODIPINE 5 MG TABLET Take 1 tablet by mouth once d* SIMVASTATIN 20 MG TABLET Take 1 tablet by mouth daily * WARFARIN 1 MG TABLET 1 mg Fridays and 0.5 mg all o* CYANOCOBALAMIN (VIT B-12) 1,0* Inject 1,000 mcg intramuscula* PANTOPRAZOLE 40 MG TABLET,DEL* Take 40 mg by mouth once karyna* CYANOCOBALAMIN (VIT B-12) 1,0* Inject 1 mL intramuscularly o* FERROUS SULFATE 325 MG (65 MG* Take 1 tablet by mouth twice * MOMETASONE 0.1 % TOPICAL CREAM Apply 1 application to affect* LISINOPRIL 40 MG TABLET Take 1 tablet by mouth every * LEVOTHYROXINE 75 MCG CAPSULE Take 75 mcg by mouth once deana* POLYETHYLENE GLYCOL 3350 17 G* 17 gram/8 oz water by mouth d* COMPOUNDED PRESCRIPTION MEDI-HONEY FOR PRESSURE ULCER* Problem List As Of Date 03/24/2018 Noted Resolved IRON DEFIC ANEMIA NOS [D50.9] INVALID FOR* Carpal tunnel syndrome [G56.00] INVALID FOR*02/21/2015 OSTEOPOROSIS NOS [M81.0] More... 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 ASTHMA UNSPECIFIED [J45.909] INVALID FOR* Open wound of knee, leg (except thigh), and ank*INVALID FOR*02/21/2015 Primary localized osteoarthrosis, lower leg [M1*INVALID FOR*02/21/2015 ADJUSTMENT DISORDER WITH DEPRESSED MOOD [F43.21]INVALID FOR* S/P RIGHT HIP JOINT REPLACEMENT [Z96.649] INVALID FOR*02/21/2015 LT HIP, COMPLIC MEDICAL LOGISTICS SPECIALIST JOINT DEVICE [996.77] [T*INVALID FOR*02/17/2012 Priority: D More... RIGHT KNEE RHEUM ARTHRITIS [714.2] [M05.60] INVALID FOR* S/P RIGHT KNEE REPLACEMENT [V43.65] [Z96.659] INVALID FOR*12/31/2016 LT KNEE, INFEC/INFLAM-MEDICAL LOGISTICS SPECIALIST JOINT DEV [996.66]*INVALID FOR*02/21/2015 SUMMARY [V999.95] INVALID FOR* More... Abnormal Stress Test [R94.39] INVALID FOR* Priority: A More... Hypertension [I10] INVALID FOR* Priority: C More... Femoral DVT (deep venous thrombosis) (HCC) [I82*INVALID FOR*02/21/2015 More... 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 Rheumatoid arthritis involving multiple sites (*INVALID FOR* Chronic anticoagulation [Z79.01] INVALID FOR* C. difficile enteritis [A04.72] INVALID FOR*04/01/2017 USP prescription opiate use [Z79.891] INVALID FOR* Vitamin B12 deficiency [E53.8] INVALID FOR* Recurrent deep vein thrombosis (DVT) (HCC) [I82*INVALID FOR* Prescriptions ordered this encounter Disp Refills Start End HYDROCODONE 5 MG-ACETAMINOPHEN 325 M* 100 * 0 03/24/2018 04/17/2018 Class: Print RX Route: ORAL Sig: Take 1 tablet by mouth every 6 hours as needed for Pain for up to 24 days. Earliest Fill Date: 03/24/18 Medications Discontinued During This Encounter FLUoxetine (PROZAC) 20 mg capsule 30 c* 11 09/23/2016 03/24/2018 Route: ORAL Sig: Take 1 capsule by mouth once daily. Disc: Discontinued by another Health Care Provider bisacodyl EC (DULCOLAX, BISACODYL,) * 03/24/2018 Class: Historical Med Route: ORAL Sig: Take 5 mg by mouth twice daily. Disc: Discontinued by another Health Care Provider albuterol HFA 90 mcg/actuation inhal* 1 In* 2 06/10/2014 03/24/2018 Route: INHALATION Sig: Inhale 2 Puffs as instructed every 4 hours as needed. FOR WHEEZING AND SHORTNESS OF BREATH. Disc: Course of therapy completed HYDROcodone-acetaminophen (NORCO) 5-* 100 * 0 02/18/2018 03/24/2018 Class: Med Update Route: ORAL Sig: Take 1 tablet by mouth every 6 hours as needed for Pain for up to 24 days. Disc: Reason for discontinue is not on file. Disposition: Return if symptoms worsen or fail to improve. Follow-up and Disposition History Recorded Encounter Status:Closed by RUFINO DUMAS CNP on 03/24/18 PROTHROMBIN TIME W/INR Collected: 03/20/2018 Status: F Source: [place] 12:35 PM [facility] REPOSITORY Order Comment: FAX TO DR. LEUNG WHO IS METAL GRADER. DR. STERN IS OFF. SPOKE TO GÓMEZ AT [facility] TYPE CODE TESTS RESULT OUT OF REFERENCE UNITS RANGE LAB L300.4150 11.7-14.9 SECONDS High PROTIME 55.3 LAB L300.4200 High alert INR 6.2 Result Comment: CRITICAL VALUE VERIFIED. CALLED TO CHUY FAN 03/20/18 1351 Ajay Mondragon RESULTS READ BACK BY SAME. Performed By: #### L300.3900 #### [facility] [place], [address] PROTHROMBIN TIME AND Collected: 03/11/2018 Status: F Source: [facility] [place] INR 5:10 AM [facility] REPOSITORY TYPE CODE TESTS RESULT OUT OF REFERENCE UNITS RANGE LAB PROTHROMBIN TIME AND INR(LOINC) PROTHROMBIN TIME AND INR Result Comment: PROTHROMBIN TIME AND INR LAB PT-COUMADIN(LOINC) sec PT-COUMADIN 17.4 LAB INR(LOINC) 0.8 - 1.2 INR High 1.5 Result Comment: THE HEMOSIL THROMBOPLASTIN REAGENT USED IN THE PROTHROMBIN TIME TEST INTERACTS WITH THE DRUG CUBICIN (DAPTOMYCIN) AND WILL RESULT IN FALSELY ELEVATED PT / INR RESULTS INR INTERPRETATION INR INDICATION PREVENTION AND TREATMENT OF THROMBOEMBOLISM ASSOCIATED WITH: 2.0 - 3.0 ATRIAL FIBRILLATION, BIOPROSTHETIC HEART VALVES, PULMONARY EMBOLISM, VENOUS THROMBOSIS, SYSTEMIC EMBOLISM POST MYOCARDIAL INFARCTION 2.5 - 3.5 MECHANICAL HEART VALVES Performed By: #### [id number] #### [facility],[address] [address] PROTHROMBIN TIME AND Collected: 03/10/2018 Status: F Source: [place]AN [place] INR 5:20 AM [facility] REPOSITORY TYPE CODE TESTS RESULT OUT OF REFERENCE UNITS RANGE LAB PROTHROMBIN TIME AND INR(LOINC) PROTHROMBIN TIME AND INR Result Comment: PROTHROMBIN TIME AND INR LAB PT-COUMADIN(LOINC) sec PT-COUMADIN 15.1 LAB INR(LOINC) 0.8 - 1.2 INR High 1.3 Result Comment: THE HEMOSIL THROMBOPLASTIN REAGENT USED IN THE PROTHROMBIN TIME TEST INTERACTS WITH THE DRUG CUBICIN (DAPTOMYCIN) AND WILL RESULT IN FALSELY ELEVATED PT / INR RESULTS INR INTERPRETATION INR INDICATION PREVENTION AND TREATMENT OF THROMBOEMBOLISM ASSOCIATED WITH: 2.0 - 3.0 ATRIAL FIBRILLATION, BIOPROSTHETIC HEART VALVES, PULMONARY EMBOLISM, VENOUS THROMBOSIS, SYSTEMIC EMBOLISM POST MYOCARDIAL INFARCTION 2.5 - 3.5 MECHANICAL HEART VALVES Performed By: #### [id number] #### [facility],[address] [place], [place] [id number] PROTHROMBIN TIME AND Collected: 03/09/2018 Status: F Source: ERAN [place] INR 4:40 AM [facility] REPOSITORY TYPE CODE TESTS RESULT OUT OF REFERENCE UNITS RANGE LAB PROTHROMBIN TIME AND INR(LOINC) PROTHROMBIN TIME AND INR Result Comment: PROTHROMBIN TIME AND INR LAB PT-COUMADIN(LOINC) sec PT-COUMADIN 15.1 LAB INR(LOINC) 0.8 - 1.2 INR High 1.3 Result Comment: THE HEMOSIL THROMBOPLASTIN REAGENT USED IN THE PROTHROMBIN TIME TEST INTERACTS WITH THE DRUG CUBICIN (DAPTOMYCIN) AND WILL RESULT IN FALSELY ELEVATED PT / INR RESULTS INR INTERPRETATION INR INDICATION PREVENTION AND TREATMENT OF THROMBOEMBOLISM ASSOCIATED WITH: 2.0 - 3.0 ATRIAL FIBRILLATION, BIOPROSTHETIC HEART VALVES, PULMONARY EMBOLISM, VENOUS THROMBOSIS, SYSTEMIC EMBOLISM POST MYOCARDIAL INFARCTION 2.5 - 3.5 MECHANICAL HEART VALVES Performed By: #### [id number] #### [place] [address] PROTHROMBIN TIME AND Collected: 03/06/2018 Status: F Source: [facility] INR 3:02 [facility] REPOSITORY TYPE CODE TESTS RESULT OUT OF REFERENCE UNITS RANGE LAB PROTHROMBIN TIME AND INR(LOINC) PROTHROMBIN TIME AND INR Result Comment: PROTHROMBIN TIME AND INR LAB PT-COUMADIN(LOINC) sec PT-COUMADIN 18.6 LAB INR(LOINC) 0.8 - 1.2 INR High 1.7 Result Comment: THE HEMOSIL THROMBOPLASTIN REAGENT USED IN THE PROTHROMBIN TIME TEST INTERACTS WITH THE DRUG CUBICIN (DAPTOMYCIN) AND WILL RESULT IN FALSELY ELEVATED PT / INR RESULTS INR INTERPRETATION INR INDICATION PREVENTION AND TREATMENT OF THROMBOEMBOLISM ASSOCIATED WITH: 2.0 - 3.0 ATRIAL FIBRILLATION, BIOPROSTHETIC HEART VALVES, PULMONARY EMBOLISM, VENOUS THROMBOSIS, SYSTEMIC EMBOLISM POST MYOCARDIAL INFARCTION 2.5 - 3.5 MECHANICAL HEART VALVES Performed By: #### [id number] #### [place] [address] PROTHROMBIN TIME AND Collected: 03/03/2018 Status: F Source: [facility] INR 5:45 [facility] REPOSITORY TYPE CODE TESTS RESULT OUT OF REFERENCE UNITS RANGE LAB PROTHROMBIN TIME AND INR(LOINC) PROTHROMBIN TIME AND INR Result Comment: PROTHROMBIN TIME AND INR LAB PT-COUMADIN(LOINC) sec PT-COUMADIN 30.5 LAB INR(LOINC) 0.8 - 1.2 INR High 2.8 Result Comment: THE HEMOSIL THROMBOPLASTIN REAGENT USED IN THE PROTHROMBIN TIME TEST INTERACTS WITH THE DRUG CUBICIN (DAPTOMYCIN) AND WILL RESULT IN FALSELY ELEVATED PT / INR RESULTS INR INTERPRETATION INR INDICATION PREVENTION AND TREATMENT OF THROMBOEMBOLISM ASSOCIATED WITH: 2.0 - 3.0 ATRIAL FIBRILLATION, BIOPROSTHETIC HEART VALVES, PULMONARY EMBOLISM, VENOUS THROMBOSIS, SYSTEMIC EMBOLISM POST MYOCARDIAL INFARCTION 2.5 - 3.5 MECHANICAL HEART VALVES Performed By: #### [id number] #### [place] [address] PROTHROMBIN TIME AND Collected: 03/01/2018 Status: F Source: [facility] INR 12:00 PM [facility] REPOSITORY TYPE CODE TESTS RESULT OUT OF REFERENCE UNITS RANGE LAB PROTHROMBIN TIME AND INR(LOINC) PROTHROMBIN TIME AND INR Result Comment: PROTHROMBIN TIME AND INR LAB PT-COUMADIN(LOINC) sec PT-COUMADIN 27.2 LAB INR(LOINC) 0.8 - 1.2 INR High 2.5 Result Comment: THE HEMOSIL THROMBOPLASTIN REAGENT USED IN THE PROTHROMBIN TIME TEST INTERACTS WITH THE DRUG CUBICIN (DAPTOMYCIN) AND WILL RESULT IN FALSELY ELEVATED PT / INR RESULTS INR INTERPRETATION INR INDICATION PREVENTION AND TREATMENT OF THROMBOEMBOLISM ASSOCIATED WITH: 2.0 - 3.0 ATRIAL FIBRILLATION, BIOPROSTHETIC HEART VALVES, PULMONARY EMBOLISM, VENOUS THROMBOSIS, SYSTEMIC EMBOLISM POST MYOCARDIAL INFARCTION 2.5 - 3.5 MECHANICAL HEART VALVES Performed By: #### [id number] #### [place] [id number] PROTHROMBIN TIME AND Collected: 02/28/2018 Status: F Source: [facility] [place] INR 4:30 AM [facility] REPOSITORY TYPE CODE TESTS RESULT OUT OF REFERENCE UNITS RANGE LAB PROTHROMBIN TIME AND INR(LOINC) PROTHROMBIN TIME AND INR Result Comment: PROTHROMBIN TIME AND INR LAB PT-COUMADIN(LOINC) sec PT-COUMADIN 21.6 LAB INR(LOINC) 0.8 - 1.2 INR High 1.9 Result Comment: THE HEMOSIL THROMBOPLASTIN REAGENT USED IN THE PROTHROMBIN TIME TEST INTERACTS WITH THE DRUG CUBICIN (DAPTOMYCIN) AND WILL RESULT IN FALSELY ELEVATED PT / INR RESULTS INR INTERPRETATION INR INDICATION PREVENTION AND TREATMENT OF THROMBOEMBOLISM ASSOCIATED WITH: 2.0 - 3.0 ATRIAL FIBRILLATION, BIOPROSTHETIC HEART VALVES, PULMONARY EMBOLISM, VENOUS THROMBOSIS, SYSTEMIC EMBOLISM POST MYOCARDIAL INFARCTION 2.5 - 3.5 MECHANICAL HEART VALVES Performed By: #### [id number] #### [place] [address] PROTHROMBIN TIME AND Collected: 02/27/2018 Status: F Source: [facility] INR 5:30 AM [facility] REPOSITORY TYPE CODE TESTS RESULT OUT OF REFERENCE UNITS RANGE LAB PROTHROMBIN TIME AND INR(LOINC) PROTHROMBIN TIME AND INR Result Comment: PROTHROMBIN TIME AND INR LAB PT-COUMADIN(LOINC) sec PT-COUMADIN 16.5 LAB INR(LOINC) 0.8 - 1.2 INR High 1.5 Result Comment: THE HEMOSIL THROMBOPLASTIN REAGENT USED IN THE PROTHROMBIN TIME TEST INTERACTS WITH THE DRUG CUBICIN (DAPTOMYCIN) AND WILL RESULT IN FALSELY ELEVATED PT / INR RESULTS INR INTERPRETATION INR INDICATION PREVENTION AND TREATMENT OF THROMBOEMBOLISM ASSOCIATED WITH: 2.0 - 3.0 ATRIAL FIBRILLATION, BIOPROSTHETIC HEART VALVES, PULMONARY EMBOLISM, VENOUS THROMBOSIS, SYSTEMIC EMBOLISM POST MYOCARDIAL INFARCTION 2.5 - 3.5 MECHANICAL HEART VALVES Performed By: #### [id number] #### [place] [address] CMP WITH EGFR Collected: 02/26/2018 Status: F Source: ERAN JAINROBERTO 5:32 AM [facility] REPOSITORY TYPE CODE TESTS RESULT OUT OF RANGE REFERENCE UNITS LAB CMP with eGFR(LOINC) CMP with eGFR Result Comment: COMPREHENSIVE METABOLIC PANEL LAB SODIUM(LOINC) 136 - 145 mmol/l SODIUM 136 LAB POTASSIUM(LOINC) 3.5 - 5.1 mmol/L POTASSIUM 3.7 LAB CHLORIDE(LOINC) 98 - 107 mmol/L CHLORIDE 102 LAB CO2(LOINC) 21.0 - mmol/L 31.0 CO2 28.3 LAB GLUCOSE(LOINC) 74 - 106 mg/dl GLUCOSE 83 LAB BUN(LOINC) 6 - 20 mg/dl BUN 10 LAB CREATININE(LOINC) 0.6 - 1.2 mg/dl Low CREATININE 0.5 LAB AST/SGOT(LOINC) 13 - 39 U/L AST/SGOT Low 10 LAB ALK PHOS(LOINC) 38 - 126 U/L ALK PHOS 70 LAB CALCIUM(LOINC) 8.6 - mg/dl 10.2 CALCIUM Low 8.3 LAB TOTAL PROTEIN(LOINC) 6.4 - 8.3 g/dl TOTAL Low PROTEIN 6.0 LAB ALBUMIN(LOINC) 3.4 - 4.8 g/dL ALBUMIN Low 2.6 LAB GLOBULIN(LOINC) 1.5 - 3.8 G/DL GLOBULIN 3.4 LAB A/G RATIO(LOINC) 0.9 - 1.6 A/G Low RATIO 0.8 LAB TOTAL BILI(LOINC) 0.0 - 1.5 mg/dl TOTAL BILI 0.2 LAB B/C RATIO(LOINC) 0 - 30 ratio B/C RATIO 20 LAB ALT/SGPT(LOINC) 8 - 35 U/L ALT/SGPT Low 5 LAB ANION GAP(LOINC) 10 - 20 mmol/L ANION Low GAP 9 LAB AGE(LOINC) years AGE 82 LAB eGFR(LOINC) 60 - 999 ML/MINUTE eGFR >60 LAB eGFR(AA)(LOINC) 60 - 999 ML/MINUTE eGFR(AA) >60 Result Comment: ACCORDING TO THE NATIONAL KIDNEY DISEASE EDUCATION PROGRAM(NKDE), A NORMAL eGFR IS A VALUE GREATER THAN OR EQUAL TO 60 ML/MIN/1.73 SQ METERS. CHRONIC KIDNEY DISEASE: <60mL/MIN/1.73 SQ METERS KIDNEY FAILURE: <15mL/MIN/1.73 SQ METERS THIS TEST SHOULD ONLY BE USED FOR PATIENTS 18 YEARS OF AGE AND OLDER. Performed By: #### [id number] #### [address] [address] LIPID PROFILE Collected: 02/26/2018 Status: F [facility] AM [facility] REPOSITORY TYPE CODE TESTS RESULT OUT OF REFERENCE UNITS RANGE LAB LIPID PROFILE(LOIN C) LIPID PROFILE Result Comment: LIPID PROFILE LAB TRIGLYCERIDE(LOINC) 0 - 150 mg/dl TRIGLYCERIDE 69 LAB CHOLESTEROL(LOINC) 0 - 200 mg/dl CHOLESTEROL 108 LAB HDL(LOINC) 40 - 60 mg/dl HDL 44 LAB CHOL/HDL(LOINC) 0.0 - 5.0 CHOL/HDL 2.5 LAB LDL(LOINC) 0 - 129 mg/dl LDL 50 Performed By: #### [id number] #### [address] [place] [address] PROTHROMBIN TIME AND Collected: 02/26/2018 Status: F [facility] AM [facility] REPOSITORY TYPE CODE TESTS RESULT OUT OF REFERENCE UNITS RANGE LAB PROTHROMBIN TIME AND INR(LOINC) PROTHROMBIN TIME AND INR Result Comment: PROTHROMBIN TIME AND INR LAB PT-COUMADIN(LOINC) sec PT-COUMADIN 16.1 LAB INR(LOINC) 0.8 - 1.2 INR High 1.4 Result Comment: THE HEMOSIL THROMBOPLASTIN REAGENT USED IN THE PROTHROMBIN TIME TEST INTERACTS WITH THE DRUG CUBICIN (DAPTOMYCIN) AND WILL RESULT IN FALSELY ELEVATED PT / INR RESULTS INR INTERPRETATION INR INDICATION PREVENTION AND TREATMENT OF THROMBOEMBOLISM ASSOCIATED WITH: 2.0 - 3.0 ATRIAL FIBRILLATION, BIOPROSTHETIC HEART VALVES, PULMONARY EMBOLISM, VENOUS THROMBOSIS, SYSTEMIC EMBOLISM POST MYOCARDIAL INFARCTION 2.5 - 3.5 MECHANICAL HEART VALVES Performed By: #### [id number] #### [place] [address] TSH Collected: 02/26/2018 Status: F Source: [facility] [place] 5:32 [facility] REPOSITORY TYPE CODE TESTS RESULT OUT OF RANGE REFERENCE UNITS LAB TSH(LOINC) 0.34 - 5.60 uIU/ml TSH 4.10 Performed By: #### [id number] #### [place] [address] CBC Collected: 02/26/2018 Status: F Source: [facility] 5:32 [facility] REPOSITORY TYPE CODE TESTS RESULT OUT OF RANGE REFERENCE UNITS LAB CBC(LOINC) CBC Result Comment: CBC-COMPLETE BLOOD COUNT LAB WBC(LOINC) 4.5 - 10.8 x 10EE3/UL WBC 8.6 LAB RBC(LOINC) 4.10 - x 10EE6/UL 5.30 RBC Low 3.69 LAB HEMOGLOBIN(LOINC 12.0 - g/dl ) 16.0 Low HEMOGLOBIN 9.4 LAB HEMATOCRIT(LOINC 34.0 - % ) 46.0 Low HEMATOCRIT 29.0 LAB MCV(LOINC) 80 - 99 fl MCV Low 79 LAB MCH(LOINC) 27 - 33 pg MCH Low 26 LAB MCHC(LOINC) 32 - 36 X10 3 MCHC 33 LAB RDW/CV(LOINC) 12.0 - % 15.6 RDW/CV High 25.0 LAB PLATELET(LOINC) 150 - 450 x10EE3/UL PLATELET High 618 LAB MPV(LOINC) 6.6 - 10.5 fl MPV 7.5 Result Comment: AUTOMATED DIFFERENTIAL LAB NEUT %(LOINC) 46.0 - % 76.0 NEUT % 55.0 LAB LYMPH %(LOINC) 20.0 - % 45.0 LYMPH % 29.2 LAB MONOS %(LOINC) 0.0 - 10.0 % MONOS % 7.9 LAB EO %(LOINC) 0.0 - 7.0 % EO % 7.0 LAB BASO %(LOINC) 0.0 - 2.0 % BASO % 0.9 LAB Lymph #(LOINC) 0.80 - x10EE3/ 2.80 UL Lymph # 2.50 LAB Neut #(LOINC) 1.50 - x10EE3/ 7.10 UL Neut # 4.70 LAB Graves #(LOINC) 0.20 - x10EE3/ 1.00 UL Graves # 0.70 LAB EO #(LOINC) 0.00 - x10EE3/ 0.50 UL EO # 0.60 High LAB Baso #(LOINC) 0.00 - x10EE3/ 0.10 UL Baso # 0.10 LAB MANUAL DIFF(LOINC) MANUAL DIFF REVIEWED LAB MORPHOLOGY(LOIN C) MORPHOLOGY SEE BELOW LAB PLT EST(LOINC) PLT EST INCREASED LAB MICROCYTES(QUINCY NC) MICROCYTES 3+ LAB HYPOCHROM(LOIN C) HYPOCHROM 1+ Result Comment: {CD] Performed By: #### [id number] #### [place] [address] HGB A1C Collected: 02/26/2018 Status: F Source: [facility] 5:32 AM [facility] REPOSITORY TYPE CODE TESTS RESULT OUT OF RANGE REFERENCE UNITS LAB HGB 4.4 - 6.4 % A1C(LOINC) HGB A1C 5.7 Result Comment: {HB] {A1] Performed By: #### [id number] #### [place] [address] EMERGENCY DEPARTMENT Observed: 02/23/2018 Status: F Source: [place] SUMMARY 4:02 PM [facility] REPOSITORY [facility] Medical Records Department [address] [place] [address] Emergency Department Summary 02/23/18 1329 MR#: [id number] Acct: [id number] Name: DEMETRIO KAISER Rep #: [id number] : 1935 82 From: Viola Massey MD PCP: Suman Stern III, MD Status: DEP ER - ER Visit Summary Date of Service: 02/23/18 Chief Complaint: Weakness, nausea, vomiting, diarrhea History of Present Illness: The patient is a 82 F who is currently on Levaquin for a coccyx wound. Patient states last evening she had nausea, vomiting, and diarrhea. Today she feels weak and wiped out. She was admitted to the hospital in January and at [facility] for dehydration and then transferred to [facility] for anemia. Upper and lower scopes at that time revealed no source of blood loss. Patient does transfer by sliding as she had a prior leg amputation. Family feels that this is continually irritating the coccyx wound. Physical Examination: Vital signs are unremarkable. Patient's lying in bed no acute distress. She is nontoxic appearing. Head neck examination is normal. Heart is regular rate and rhythm. Lung sounds are clear. Abdomen is soft nontender. She allows deep palpation throughout. She has active bowel sounds. Test Results: CBC reveals a hemoglobin 9.3. White count is normal. Platelet count is elevated at 679,000. Chemistry studies are significant for glucose of 66. Urinalysis shows 50 ketones but no sign of infection. Emergency Department Course and Treatment: Patient was given IV fluids here and is tolerating p.o. fluids. Repeat blood sugar is 91. Wound nurse came down and evaluated the patient. The wound is only slightly larger than when she was in the hospital a month ago. She has made treatment recommendations and this will be sent home with the patient for wound care. I did review the wound culture. There are 3 separate bacteria growing on the culture: Staph aureus, Klebsiella, Proteus. Patient is currently on Levaquin and 2 of these bacteria are sensitive to Levaquin. The Proteus is resistant to Levaquin. She will be given ampicillin to cover the Proteus infection. Treatment Plan: [] Disposition: Discharge Impression: 1. 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 It may contain incorrect words, spelling, and punctuation that were not noted in review of the chart prior to signing ED Disposition - Plan for ED Patient: Chief Complaint: General Illness Referrals: Suman Stern III, MD [Primary Care Provider] - What to do if you have Problems For any increased pain, shortness of breath, bleeding, nausea or vomiting, chest pain, or any unexpected problems, contact your Primary Care Provider. Call [facility] ([phone]) or report to the closest Emergency Room. Call 911 if necessary. 02/23/18 1602 <Electronically signed by Viola Massey MD> Date Viola Massey MD Cosigner Signature (If Indicated): Date CC: Suman Stern III, MD DISCHARGE INSTRUCTION Observed: 02/23/2018 Status: F Source: [place] 1:36 PM [facility] REPOSITORY [facility] Medical Records Department [address] [place] [address] Discharge Instruction 02/23/18 1333 MR#: [id number] Acct: [id number] Name: DEMETRIO KAISER Rep #: [id number] : 1935 82 From: Viola Massey MD PCP: Suman Stern III, MD Status: REG ER ED Disposition - Plan for ED Patient: Disposition: Home or Assisted Living Chief Complaint: General Illness Instructions: ED Diet Vomiting Diarrhea, ED Wound Care Prescriptions: Ampicillin Trihydrate 250 mg PO Q6H #28 capsule Referrals: Suman Stern III, MD [Primary Care Provider] - 1 Week What to do if you have Problems For any increased pain, shortness of breath, bleeding, nausea or vomiting, chest pain, or any unexpected problems, contact your Primary Care Provider. Call [facility] ([phone]) or report to the closest Emergency Room. Call 911 if necessary. 02/23/18 1336 <Electronically signed by Viola Massey MD> Date Viola Massey MD Cosigner Signature (If Indicated): Date CC: Suman Stern III, MD BEDSIDE GLUCOSE Collected: 02/23/2018 Status: F Source: [place] 12:27 PM [facility] REPOSITORY TYPE CODE TESTS RESULT OUT OF RANGE REFERENCE UNITS LAB L501.080 70-110 mg/dL Normal BEDSIDE GLU 91 Result Comment: MANAGEMENT OF PATIENT CARE PER NURSING PROTOCOL Performed By: #### L501.080 #### [facility] Point of Care [facility] [place] [address] URINALYSIS, COMPLETE Collected: 02/23/2018 Status: F Source: [place] 11:05 AM [facility] REPOSITORY Order Comment: Order Date: 02/23/18 Has pt arrived? Y How was Urine Obtained? CLEAN CATCH TYPE CODE TESTS RESULT OUT OF RANGE REFERENCE UNITS LAB L400.3000 Yellow COLOR Normal Yellow LAB L400.3050 Clear Normal CLARITY Sl. Cloudy LAB L400.3200 Normal mg/dl Normal GLUCOSE, UR Normal LAB L400.3300 Negative mg/dL Normal BILIRUBIN URINE Negative LAB L400.3400 Negative mg/dl High 50 KETONE UR LAB L400.3465 1.002-1.030 Normal SP.GR. DIPSTX 1.020 LAB L400.3550 5.0 - 8.0 pH UR Normal 5.0 LAB L400.3600 Negative mg/dl PROT Normal DIPSTX Negative LAB L400.3700 Normal mg/dl Normal UROBILI Normal LAB L400.3750 Negative Normal NITRITE UR Negative LAB L400.3780 Negative /ul High 10 OCCULT BLOOD-UR LAB L400.3800 Negative /ul LEUK Normal ESTERASE Negative LAB L400.4050 0-5 /hpf WBC 0 Normal SEEN LAB L400.4100 0-5 /hpf Normal RBC-UA 0-5 SEEN LAB L400.4150 5-10 /hpf SQUAM Normal EPI 0-5 SEEN LAB L400.4300 None Seen /hpf 1+ Normal BACTERIA LAB L400.4350 <or=2+ /hpf 0 Normal MUCUS, URINE SEEN Performed By: #### L400.0001 #### [facility] [place], [address] CBC W/DIFF, AUTOMATED Collected: 02/23/2018 Status: F Source: [place] 10:03 AM [facility] REPOSITORY TYPE CODE TESTS RESULT OUT OF RANGE REFERENCE UNITS LAB L100.1000 4.4-11.0 K/mm3 Normal WBC 10.5 LAB L100.1200 4.2-5.4 M/mm3 Low RBC 3.87 LAB L100.1300 12.0-15.0 g/dl Low HGB 9.3 LAB L100.1400 37-47 % Low HCT 30.1 LAB L100.1500 81-99 fL Low MCV 77.8 LAB L100.1600 27.0-32.0 pg Low MCH 24.0 LAB L100.1700 32-36 g/gl Low MCHC 30.9 LAB L100.1810 11.6-14.6 % High RDW CV 23.1 LAB L100.1820 35.1-43.9 fl High RDW SD 64.0 LAB L100.1900 150-450 K/mm3 High PLT 679 LAB L100.2000 6.2-12.0 fl Normal MPV 8.6 LAB L100.2100 47-70 % High NEUT% 70.3 LAB L100.2200 19-41 % Normal LY% 19.8 LAB L100.2300 0-10 % Normal MONO% 6.5 LAB L100.2400 0-5 % Normal EO% 2.7 LAB L100.2500 0-1 % Normal BASO% 0.4 LAB L100.2550 0.0-0.9 % Normal IM GRAN % 0.300 Result Comment: IG% - Immature Granulocytes (promyelocytes, myelocytes and metamyelocytes) > 1% indicates that a LEFT SHIFT is Present. LAB L100.2620 2.0-7.7 X10 3/uL Absolute Neut Normal 7.4 LAB L100.2720 0.83-4.51 X10 3/ul Absolute Lymph Normal 2.08 LAB L100.5500 ADEQ PLT EST Normal MOD INC LAB L100.7300 ANISO Normal 1+ LAB L100.7600 HYPOCHROMASIA Normal 2+ LAB L100.7700 MICROCYTES Normal 2+ Performed By: #### L100.0100 #### [facility] [address] [facility] [place], [address] BASIC METABOLIC Collected: 02/23/2018 Status: F Source: [place] PROFILE (BMP) 10:03 AM [facility] REPOSITORY TYPE CODE TESTS RESULT OUT OF RANGE REFERENCE UNITS LAB L501.0100 74-106 mg/dL Low GLU 66 Result Comment: Please note revised GLUCOSE reference range effective 2017. LAB L501.1000 7-18 mg/dL Normal BUN 13 LAB L501.1100 0.55-1.02 mg/dL Normal CREAT,SERUM 0.57 Result Comment: The validity of the calculated GFR AND GFRAA in patients over 70 years has not been determined. Clinical correlation is essential. LAB L501.1110 >60 mL/min Normal EST GFR 108 Result Comment: Non- GFR Calc LAB L501.1115 >60 mL/min Normal EST GFR - AA 130 Result Comment: GFR Calc LAB L501.1255 ml/min Normal Estimated CRCL 38.60 LAB L501.1300 10-20 RATIO High BUN/CRE 22.7 LAB L501.2200 8.5-10 mg/dL Low .1 CA 8.3 LAB L501.5300 136-14 mmol/L Normal 5 NA 140 LAB L501.5600 3.5-5. mmol/L Normal 1 K 3.9 LAB L501.5900 98-107 mmol/L Normal CL 103 LAB L501.6100 21.0-3 mmol/L Normal 2.0 CO2 27.0 LAB L501.6200 5-15 Normal GAP 10 Performed By: #### L500.2500 #### [facility] [address] [place], [address] Observed: 02/10/2018 Status: F Source: DAVE CULTURE, WOUND 12:50 PM [facility] REPOSITORY Comments: COCCYX WOUND Gram Stain Gram Stain Rare White Blood Cells No organisms seen Wound Culture ORGANISM 1: Staphylococcus aureus Amount Growth 1+ ORGANISM 2: Klebsiella oxytoca Amount Growth Very Rare ORGANISM 3: Proteus mirabilis Amount Growth Very Rare Staphylococcus aureus: REACTION Benzylpenicillin NF >=0.5 R Cefoxitin *NF - Clindamycin $$ <=0.25 S Inducable Clindamycin [place] - Erythromycin $ <=0.25 S Gentamicin $ <=0.5 S Levofloxacin $ 0.25 S Linezolid $$$$ 2 S Moxifloxicin *NF <=0.25 S Oxacillin NF 0.5 S Tigecycline $$$$ <=0.12 S Rifampin $$ <=0.5 S Tetracycline NF <=1 S Trimethoprim/Sulfametho $ <=10 S Vancomycin $ 1 S (NF) indicates non-formulary drug at [facility]. Approval by Infectious Disease Specialist required before non-formulary drugs may be ordered and/or dispensed. * CLSI guidelines does not recommend testing of cephalosporins. This interpretation is deduced from Beta-lactam/penicillin results. Klebsiella oxytoca: REACTION Amoxacillin/Clavulanic Acid $ <=2 S Ampicillin $ 16 R Ampicillin/Sulbactam $ 4 S Cefazolin $ <=4 S Cefepime $ <=1 S Ceftriaxone $ <=1 S Ciprofloxacin $ <=0.25 S ESBL - Ertapenim $$$ <=0.5 S Gentamicin $ <=1 S Imipenem *NF <=0.25 S Levofloxacin $ <=0.12 S Piperacillin/Tazobactam $$ <=4 S Tobramycin $ <=1 S Trimethoprim/Sulfametho $ <=20 S (NF) indicates non-formulary drug at [facility]. Approval by Infectious Disease Specialist required before non-formulary drugs may be ordered and/or dispensed. Proteus mirabilis: REACTION Amoxacillin/Clavulanic Acid $ <=2 S Ampicillin $ <=2 S Ampicillin/Sulbactam $ <=2 S Cefazolin $ <=4 S Cefepime $ <=1 S Ceftriaxone $ <=1 S Ciprofloxacin $ >=4 R Ertapenim $$$ <=0.5 S Gentamicin $ <=1 S Levofloxacin $ >=8 R Piperacillin/Tazobactam $$ <=4 S Tobramycin $ <=1 S Trimethoprim/Sulfametho $ 160 R (NF) indicates non-formulary drug at [facility]. Approval by Infectious Disease Specialist required before non-formulary drugs may be ordered and/or dispensed. Performed By: #### [id number] #### [facility] [place], [address] PROGRESS Observed: 02/09/2018 Status: COMPLETED Source: [place] 4:46 PM [facility] REPOSITORY HNO ID: [id number] Author: Kelsie Adams) MARI Thompson Service: (none) Author Type: Supervisor Lump Room Type: Progress Notes Filed: 02/09/2018 6:44 PM Note Text: The patient is here for an injection of Vitamin B12 (Cyanocobalamin). Dose: 1mL Amount wasted: none. Route: Intramuscular Site: right deltoid Dramatic Coach: Neo PLM. Lot #: [id number] Expiration Date: 03/16/2019 Patient tolerated injection well. Kelsie Thompson CMA PROGRESS Observed: 02/09/2018 Status: COMPLETED Source: [place] 3:38 PM [facility] REPOSITORY HNO ID: [id number] Author: Suman Stern III Service: (none) Author Type: Physician Type: Progress Notes Filed: 02/09/2018 6:44 PM Note Text: SUBJECTIVE: This is a 82 year old female that is here today for 1. sacral pressure ulcer--home nursing changed the dressing yesterday. Dtr states the wound is deep and contains tissue . Dressing has honey in the strip. Some evidence of discharge from the wound. L ankle swelling., Patient is able to transfer directly from the power scooter onto the commode but she is unable to lift her bottom which causes friction on her buttocks and perineum, which probably led to the pressure sore 2. vit B12 deficiency 3. pt had been at [facility] recently--losing wt over past several wks. Decreased appetite. 4. Iron deficiency anemia. Dr. Zhu performed upper and lower endoscopy and noted inflamed area in the stomach without active bleeding. Hemoglobin on 01/25/18 was 10.2. 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 TTE 06/16 showed normal EF, 50-55%. 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 10/08/2010 - USP prescription opiate use 12/08/2017 - Osteoarthritis of hip - Osteoporosis, unspecified Osteoporosis - Other specified anemias - Peripheral vascular disease (HCC) - Pulmonary embolus ([facility]) 07/04/2010 - Rheumatoid arthritis involving multiple sites ([facility]) 10/10/2015 - Rheumatoid arthritis(714.0) - Unspecified hemorrhoids without mention of complication Hemorrhoids Current Outpatient Prescriptions on File Prior to Visit: warfarin (COUMADIN) 1 mg tablet 1 mg Fridays and 0.5 mg all other days cyanocobalamin (VITAMIN B-12) 1,000 mcg/mL soln Inject 1,000 mcg intramuscularly once each week. pantoprazole DR (PROTONIX) 40 mg tablet Take 40 mg by mouth once daily. cyanocobalamin 1,000 mcg/mL soln Inject 1 mL intramuscularly once every month. ferrous sulfate 325 mg (65 mg iron) tablet Take 1 tablet by mouth twice daily. mometasone (ELOCON) 0.1 % cream Apply 1 application to affected area once daily. simvastatin (ZOCOR) 20 mg tablet Take 1 tablet by mouth daily at bedtime. lisinopril (ZESTRIL, PRINIVIL) 40 mg tablet Take 1 tablet by mouth every morning. Levothyroxine 75 mcg cap Take 75 mcg by mouth once daily. amLODIPine (NORVASC) 5 mg tablet Take 1 tablet by mouth once daily. FLUoxetine (PROZAC) 20 mg capsule Take 1 capsule by mouth once daily. polyethylene glycol 3350 (MIRALAX) 17 gram/dose powder 17 gram/8 oz water by mouth daily albuterol HFA 90 mcg/actuation inhaler Inhale 2 Puffs as instructed every 4 hours as needed. FOR WHEEZING AND SHORTNESS OF BREATH. HYDROcodone-acetaminophen (NORCO) 5-325 mg per tablet Take 1 tablet by mouth every 6 hours as needed for Pain for up to 60 days.Earliest Fill Date: 12/08/17 No current facility-administered medications on file prior to visit. FAMILY HISTORY Problem Relation Age of Onset - Hearing Loss Mother - Heart Father - Stroke Father - Cancer Sister SKIN - Cancer Brother SKIN - Diabetes Brother - Diabetes Sister - Stroke Brother - ASHD [OTHER] Brother - Heart Other 2 nephews from heart disease - ASHD [OTHER] Brother CABG 4 Social History Substance Use Topics - Smoking status: Never Smoker - Smokeless tobacco: Never Used - Alcohol use No BP 139/89 Pulse 95 Temp 36.4 ?C (97.5 ?F) (Tympanic) Resp 16 Wt 60.3 kg (133 lb) BMI 22.82 kg/m2 . OBJECTIVE: APPEARANCE Well appearing, alert, in no acute distress, well-hydrated, well nourished., She was seen while sitting on a power scooter. It is impossible to get her out of the scooter onto the exam table. She is alert and answers all questions appropriately. She is accompanied by her daughter who asked many questions also. NECK Supple, no adenopathy; thyroid symmetric, normal size, no bruits HEART RRR with normal S1 and S2, no murmurs, no gallops, no JVD appreciated LUNG clear to auscultation ABDOMEN soft, non-tender, non-distended, without organomegaly or palpable masses, no tenderness to palpation BACK: no pain to palpation EXTREMITIES she has limited and weak range of motion of both shoulders with weak chain maker hand bilaterally. She is status post left [id number] amputation. Her right lower leg has some excoriations but no tenderness or warmth. Normal color . NEURO Awake, alert and oriented x 3, No involuntary motions. and SKIN--unable to see the pressure sore in the sacral area Lab Results for DEMETRIO [facility] ( ) as of 02/09/2018 16:01 Ref. Range 02/03/2018 15:01 02/04/2018 00:00 Ferritin Latest Ref Range: 14.7 - 205.1 ng/mL 164.7 Iron Latest Ref Range: 41 - 186 ug/dL 14 (L) TIBC Latest Ref Range: 232 - 386 ug/dL 175 (L) Transferrin Saturation Latest Ref Range: 15 - 57 % 8 (L) WBC Latest Ref Range: 3.70 - 11.00 k/uL 8.47 RBC Latest Ref Range: 3.90 - 5.20 m/uL 4.30 Hemoglobin Latest Ref Range: 11.5 - 15.5 g/dL 10.4 (L) Hematocrit Latest Ref Range: 36.0 - 46.0 % 34.1 (L) Platelet Count Latest Ref Range: 150 - 400 k/uL 638 (H) MCV Latest Ref Range: 80.0 - 100.0 fL 79.3 (L) MCH Latest Ref Range: 26.0 - 34.0 pG 24.2 (L) MCHC Latest Ref Range: 30.5 - 36.0 g/dL 30.5 MPV Latest Ref Range: 9.0 - 12.7 fL 9.8 RDW-CV Latest Ref Range: 11.5 - 15.0 % 24.6 (H) Absolute nRBC Latest Ref Range: <0.01 k/uL <0.01 PT INR Unknown 2.3 ASSESSMENT: Rheumatoid arthritis affecting shoulders and hands?this disables her from using a wheelchair, can, or walker Status post left [id number]-ixe-evez amputation?this prevents her from walking and commits her to a sedentary lifestyle. 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 To enable the patient to do basic activities of daily living, including but not limited to getting to the bathroom for toileting and bathing, getting to the kitchen where her prepares her meals. Suman Stern III MD Suman Stern III MD OARRS website checked and validated. All prescriptions have been APPROPRIATELY filled. No suspicious activity was identified.- 02/09/2018 by Suman Stern III MD CNOV Observed: 02/09/2018 Status: COMPLETED Source: [place] 3:20 PM [facility] REPOSITORY Office Visit (FAMPWS) DEMETRIO [facility] ([id number]) 1935 F Date Time Provider Department 02/09/18 3:20 PM [facility] STERN [facility] During your visit today, we recorded the following information about you: Temperature Pulse Respiration Blood pressure 97.5 degrees 95/minute 16/minute 139/89 Weight 60.3 kg Suman Stern III MD 02/09/2018 6:44 PM Signed SUBJECTIVE: This is a 82 year old female that is here today for 1. sacral pressure ulcer--home nursing changed the dressing yesterday. Dtr states the wound is deep and contains tissue . Dressing has honey in the strip. Some evidence of discharge from the wound. L ankle swelling., Patient is able to transfer directly from the power scooter onto the commode but she is unable to lift her bottom which causes friction on her buttocks and perineum, which probably led to the pressure sore 2. vit B12 deficiency 3. pt had been at [facility] recently--losing wt over past several wks. Decreased appetite. 4. Iron deficiency anemia. Dr. Zhu performed upper and lower endoscopy and noted inflamed area in the stomach without active bleeding. Hemoglobin on 01/25/18 was 10.2. 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 TTE 06/16 showed normal EF, 50-55%. 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 - Esophagitis - Essential hypertension, benign - Hyperlipidemia LDL goal ANDlt; 100 07/16/2013 - Hypothyroidism 10/08/2010 - USP prescription opiate use 12/08/2017 - Osteoarthritis of hip - Osteoporosis, unspecified Osteoporosis - Other specified anemias - Peripheral vascular disease (HCC) - Pulmonary embolus (HCC) 07/04/2010 - Rheumatoid arthritis involving multiple sites (HCC) 10/10/2015 - Rheumatoid arthritis(714.0) - Unspecified hemorrhoids without mention of complication Hemorrhoids Current Outpatient Prescriptions on File Prior to Visit: warfarin (COUMADIN) 1 mg tablet 1 mg Fridays and 0.5 mg all other days cyanocobalamin (VITAMIN B-12) 1,000 mcg/mL soln Inject 1,000 mcg intramuscularly once each week. pantoprazole DR (PROTONIX) 40 mg tablet Take 40 mg by mouth once daily. cyanocobalamin 1,000 mcg/mL soln Inject 1 mL intramuscularly once every month. ferrous sulfate 325 mg (65 mg iron) tablet Take 1 tablet by mouth twice daily. mometasone (ELOCON) 0.1 % cream Apply 1 application to affected area once daily. simvastatin (ZOCOR) 20 mg tablet Take 1 tablet by mouth daily at bedtime. lisinopril (ZESTRIL, PRINIVIL) 40 mg tablet Take 1 tablet by mouth every morning. Levothyroxine 75 mcg cap Take 75 mcg by mouth once daily. amLODIPine (NORVASC) 5 mg tablet Take 1 tablet by mouth once daily. FLUoxetine (PROZAC) 20 mg capsule Take 1 capsule by mouth once daily. polyethylene glycol 3350 (MIRALAX) 17 gram/dose powder 17 gram/8 oz water by mouth daily albuterol HFA 90 mcg/actuation inhaler Inhale 2 Puffs as instructed every 4 hours as needed. FOR WHEEZING AND SHORTNESS OF BREATH. HYDROcodone-acetaminophen (NORCO) 5-325 mg per tablet Take 1 tablet by mouth every 6 hours as needed for Pain for up to 60 days.Earliest Fill Date: 12/08/17 No current facility-administered medications on file prior to visit. FAMILY HISTORY Problem Relation Age of Onset - Hearing Loss Mother - Heart Father - Stroke Father - Cancer Sister SKIN - Cancer Brother SKIN - Diabetes Brother - Diabetes Sister - Stroke Brother - ASHD [OTHER] Brother - Heart Other 2 nephews from heart disease - ASHD [OTHER] Brother CABG 4 Social History Substance Use Topics - Smoking status: Never Smoker - Smokeless tobacco: Never Used - Alcohol use No BP 139/89 Pulse 95 Temp 36.4 ?C (97.5 ?F) (Tympanic) Resp 16 Wt 60.3 kg (133 lb) BMI 22.82 kg/m2 . OBJECTIVE: APPEARANCE Well appearing, alert, in no acute distress, well- hydrated, well nourished., She was seen while sitting on a power scooter. It is impossible to get her out of the scooter onto the exam table. She is alert and answers all questions appropriately. She is accompanied by her daughter who asked many questions also. NECK Supple, no adenopathy; thyroid symmetric, normal size, no bruits HEART RRR with normal S1 and S2, no murmurs, no gallops, no JVD appreciated LUNG clear to auscultation ABDOMEN soft, non-tender, non-distended, without organomegaly or palpable masses, no tenderness to palpation BACK: no pain to palpation EXTREMITIES she has limited and weak range of motion of both shoulders with weak chain maker hand bilaterally. She is status post left [id number]-[id number] amputation. Her right lower leg has some excoriations but no tenderness or warmth. Normal color . NEURO Awake, alert and oriented x 3, No involuntary motions. and SKIN--unable to see the pressure sore in the sacral area Lab Results for DEMETRIO [facility] ( ) as of 02/09/2018 16:01 Ref. Range 02/03/2018 15:01 02/04/2018 00:00 Ferritin Latest Ref Range: 14.7 - 205.1 ng/mL 164.7 Iron Latest Ref Range: 41 - 186 ug/dL 14 (L) TIBC Latest Ref Range: 232 - 386 ug/dL 175 (L) Transferrin Saturation Latest Ref Range: 15 - 57 % 8 (L) WBC Latest Ref Range: 3.70 - 11.00 k/uL 8.47 RBC Latest Ref Range: 3.90 - 5.20 m/uL 4.30 Hemoglobin Latest Ref Range: 11.5 - 15.5 g/dL 10.4 (L) Hematocrit Latest Ref Range: 36.0 - 46.0 % 34.1 (L) Platelet Count Latest Ref Range: 150 - 400 k/uL 638 (H) MCV Latest Ref Range: 80.0 - 100.0 fL 79.3 (L) MCH Latest Ref Range: 26.0 - 34.0 pG 24.2 (L) MCHC Latest Ref Range: 30.5 - 36.0 g/dL 30.5 MPV Latest Ref Range: 9.0 - 12.7 fL 9.8 RDW-CV Latest Ref Range: 11.5 - 15.0 % 24.6 (H) Absolute nRBC Latest Ref Range: ANDlt;0.01 k/uL ANDlt;0.01 PT INR Unknown 2.3 ASSESSMENT: Rheumatoid arthritis affecting shoulders and hands?this disables her from using a wheelchair, can, or walker Status post left vczwv-znu-mvxi amputation?this prevents her from walking and commits her to a sedentary lifestyle. 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 To enable the patient to do basic activities of daily living, including but not limited to getting to the bathroom for toileting and bathing, getting to the kitchen where her prepares her meals. JOBY Emery MD, III MD OARRS website checked and validated. All prescriptions have been APPROPRIATELY filled. No suspicious activity was identified.- 02/09/2018 by JOBY Emery MD, III MD 02/09/2018 4:13 PM Signed PLAN: daily home temperature--report if temperature is ANDgt; 100.0 visiting wound nurse to obtain wound culture at next visit same medications and treatments vitamin B12 1000 units IM today I recommend replacement for power scooter (Juliette). JOBY Emery MD, CMA, MA 02/09/2018 6:44 PM Signed The patient is here for an injection of Vitamin B12 (Cyanocobalamin). Dose: 1mL Amount wasted: none. Route: Intramuscular Site: right deltoid Dramatic Coach: Neo PLM. Lot #: [id number] Expiration Date: 03/16/2019 Patient tolerated injection well. Kelsie Thompson CMA Referring Provider: SUMAN STERN III [[id number]] Allergies As of Date: 02/09/2018 Noted Allergy Reaction AUGMENTIN (AMOXICILLIN-POT CLAVUL*04/13/2010 CEFTRIAXONE 04/13/2010 CELECOXIB 04/18/2003 Comments: itch IMURAN (AZATHIOPRINE SODIUM) 04/13/2010 LODINE (ETODOLAC) 02/17/2012 16 - Unknown METHOTREXATE 04/18/2003 Comments: affected liver(cirrhosis) NSAIDS (NON-STEROIDAL ANTI-INFLAM*04/18/2003 Comments: Hives Patient tolerates aspirin PENICILLINS 04/18/2003 Comments: nauseated and vomiting PURINE ANTAGONIST ANTIMETABOLITE 04/18/2003 Comments: nausea and vomiting SULFAMETHOXAZOLE-TRIMETHOPRIM 02/17/2012 2 - Rash Date Reviewed: 02/09/2018 Reviewed by: Kelsie (Doris) MARI Thompson - Fully Assessed Reason for Visit: F/U 1 month [1175] Primary Visit Diagnosis:Chronic anticoagulation [Z79.01] Other Visit Diagnoses:Decubitus ulcer of sacral region, unspecified ulcer stage [L89.159] Iron deficiency anemia due to chronic blood loss [D50.0] Vitamin B12 deficiency [E53.8] Rheumatoid arthritis involving multiple sites, unspecified rheumatoid factor presence (HCC) [M06.9] Order(s):amLODIPine (NORVASC) 5 mg tabletTake 1 tablet by mouth once daily.Disp: 90 tabletRfl: 3 simvastatin (ZOCOR) 20 mg tabletTake 1 tablet by mouth daily at bedtime.Disp: 90 tabletRfl: 3 HYDROcodone-acetaminophen (NORCO) 5-325 mg per tabletTake 1 tablet by mouth every 6 hours as needed for Pain for up to 60 days.Disp: 100 tabletRfl: 0 Prescriptions as of 02/09/2018 Sig: AMLODIPINE 5 MG TABLET Take 1 tablet by mouth once d* SIMVASTATIN 20 MG TABLET Take 1 tablet by mouth daily * WARFARIN 1 MG TABLET 1 mg Fridays and 0.5 mg all o* CYANOCOBALAMIN (VIT B-12) 1,0* Inject 1,000 mcg intramuscula* PANTOPRAZOLE 40 MG TABLET,DEL* Take 40 mg by mouth once karyna* CYANOCOBALAMIN (VIT B-12) 1,0* Inject 1 mL intramuscularly o* FERROUS SULFATE 325 MG (65 MG* Take 1 tablet by mouth twice * MOMETASONE 0.1 % TOPICAL CREAM Apply 1 application to affect* LISINOPRIL 40 MG TABLET Take 1 tablet by mouth every * LEVOTHYROXINE 75 MCG CAPSULE Take 75 mcg by mouth once deana* FLUOXETINE 20 MG CAPSULE Take 1 capsule by mouth once * POLYETHYLENE GLYCOL 3350 17 G* 17 gram/8 oz water by mouth d* ALBUTEROL SULFATE HFA 90 MCG/* Inhale 2 Puffs as instructed * HYDROCODONE 5 MG-ACETAMINOPHE* Take 1 tablet by mouth every * Problem List As Of Date 02/09/2018 Noted Resolved IRON DEFIC ANEMIA NOS [D50.9] INVALID FOR* Carpal tunnel syndrome [G56.00] INVALID FOR*02/21/2015 OSTEOPOROSIS NOS [M81.0] More... 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 ASTHMA UNSPECIFIED [J45.909] INVALID FOR* Open wound of knee, leg (except thigh), and ank*INVALID FOR*02/21/2015 Primary localized osteoarthrosis, lower leg [M1*INVALID FOR*02/21/2015 ADJUSTMENT DISORDER WITH DEPRESSED MOOD [F43.21]INVALID FOR* S/P RIGHT HIP JOINT REPLACEMENT [Z96.649] INVALID FOR*02/21/2015 LT HIP, COMPLIC MEDICAL LOGISTICS SPECIALIST JOINT DEVICE [996.77] [T*INVALID FOR*02/17/2012 Priority: D More... RIGHT KNEE RHEUM ARTHRITIS [714.2] [M05.60] INVALID FOR* S/P RIGHT KNEE REPLACEMENT [V43.65] [Z96.659] INVALID FOR*12/31/2016 LT KNEE, INFEC/INFLAM-MEDICAL LOGISTICS SPECIALIST JOINT DEV [996.66]*INVALID FOR*02/21/2015 SUMMARY [V999.95] INVALID FOR* More... Abnormal Stress Test [R94.39] INVALID FOR* Priority: A More... Hypertension [I10] INVALID FOR* Priority: C More... Femoral DVT (deep venous thrombosis) (HCC) [I82*INVALID FOR*02/21/2015 More... 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 Rheumatoid arthritis involving multiple sites (*INVALID FOR* Chronic anticoagulation [Z79.01] INVALID FOR* C. 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 Suman Stern, III Prescriptions ordered this encounter Disp Refills Start End AMLODIPINE 5 MG TABLET 90 t* 3 02/09/2018 Route: ORAL Sig: Take 1 tablet by mouth once daily. SIMVASTATIN 20 MG TABLET 90 t* 3 02/09/2018 Route: ORAL Sig: Take 1 tablet by mouth daily at bedtime. HYDROCODONE 5 MG-ACETAMINOPHEN 325 M* 100 * 0 02/09/2018 04/10/2018 Class: Print RX Route: ORAL Sig: Take 1 tablet by mouth every 6 hours as needed for Pain for up to 60 days. Medications Discontinued During This Encounter amLODIPine (NORVASC) 5 mg tablet 90 t* 3 05/06/2017 02/09/2018 Route: ORAL Sig: Take 1 tablet by mouth once daily. Disc: Reason for discontinue is not on file. simvastatin (ZOCOR) 20 mg tablet 90 t* 3 12/08/2017 02/09/2018 Route: ORAL Sig: Take 1 tablet by mouth daily at bedtime. Disc: Reason for discontinue is not on file. HYDROcodone-acetaminophen (NORCO) 5-* 100 * 0 12/08/2017 02/09/2018 Class: Print RX Route: ORAL Sig: Take 1 tablet by mouth every 6 hours as needed for Pain for up to 60 days. Earliest Fill Date: 12/08/17 Disc: Reason for discontinue is not on file. Encounter Status:Closed by SUMAN STERN III, MD on 02/09/18 PROGRESS Observed: 02/07/2018 Status: COMPLETED Source: [place] 12:19 PM [facility] RE[facility] HNO ID: [id number] Author: Bobo Zhu Service: (none) Author Type: Physician Type: Progress Notes Filed: 02/07/2018 12:26 PM Note Text: FOLLOW UP VISIT - ENDOSCOPY NAME: Demetrio Kaiser [facility] NO.: [id number] DATE OF SERVICE: 02/03/2018 : 1935 REFERRING PHYSICIAN: Suman Stern III MD Demetrio is a patient I am following for anemia. Demetrio notes the following GI complaints: Demetrio denies abdominal pain.. Demetrio notes occasional diarrhea. Demetrio denies constipation. Demetrio denies a change in bowel habits. Demetrio is uncertain about melena. Demetrio denies bright red blood per rectum. Demetrio denies hemorrhoids. The patient had a syncopal episode and presented to [facility] on January 07, 2018. She was found to have severe anemia with initial hemoglobin of 7.2 with iron deficiency parameters and his serum iron level of less than 10. The patient had negative troponins performed. She had an echocardiogram performed which was normal. She was transfused 3 units of packed red cells. She had a urinalysis which was consistent with a urinary tract infection but denies UTI symptoms. She was not treated for her contaminated urine and no culture was obtained. 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 She has decreased ability to maintain her activities of daily living, she has decubitus ulcers. She has trouble ambulating and difficulty getting to the bathroom. She is dependent upon her wheelchair for ambulation and needs assistance at home for these activities of daily living. She had a previous colonoscopy , but cannot remember the location or date. She has not had previous upper endoscopy. She is on Coumadin for a history of blood clots. She understands this is venous not arterial I admitted her for bowel prep the night prior to endoscopy and performed upper and lower endoscopy on January 26, 2017. At admission and evaluation, the patient was also noted to have decubitus ulcers at the ischial and sacral prominence areas. 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 Pathology demonstrated: Mild gastritis which was H. pylori negative and inflammation at the GE junction. Her home nurse aide will now begin treatment for her decubiti. The patient notes no complaints since the procedure. VITALS: There were no vitals taken for this visit. On examination, the abdomen is benign. Assessment IMPRESSION: Significant anemia, no obvious source, possible resolved gastritis versus bleeding from AVM PLAN: If the patient notes any problems or changes in bowel function, the patient should contact me immediately. Otherwise I recommend follow up endoscopy as needed. I discussed with you the findings of your colonoscopy. Since there were no worrisome abnormalities, I recommend you undergo repeat endoscopic screening every 10 years. This is the current recommendation for colon cancer screening. If you note bleeding, change in bowel habits, or other suspicious colon related symptoms before that time, those symptoms should be evaluated as necessary. If the patient notes another significant bleeding episode- I recommended she present to [facility] emergency department and start with a nuclear medicine bleeding scan to assess location given her occult bleeding source Diagnoses: (D50.0) Iron deficiency anemia due to chronic blood loss (primary encounter diagnosis) Return to Clinic: The patient is instructed to follow- up with me as needed. Bobo Zhu MD 12 LEAD ELECTROCARDIOGRAM Observed: 02/05/2018 Status: F Source: [place] 2:48 PM [facility] REPOSITORY [facility] Cardiovascular Services [address] [place] [address] 12 Lead EKG 01/26/18 0528 MR#: [id number] Acct: [id number] Name: DEMETRIO KAISER Rep #: [id number] : 1935 82 From: Thor Kwna MD Attending Dr: Bobo Zhu MD Status: [facility] Ordering Dr: Geraldo Herndon MD Date: 01/26/18 Location: EN Sex: F C Admitted: Test Reason : MORNING EKG Blood Pressure : / mmHG Vent. Rate : 081 BPM Atrial Rate : 081 BPM P-R Int : 158 ms QRS Dur : 082 ms QT Int : 380 ms P-R-T Axes : 042 -10 023 degrees QTc Int : 441 ms Normal sinus rhythm Low voltage QRS Nonspecific T wave abnormality Abnormal ECG When compared with ECG of 13-JUN-2010 04:03, Nonspecific T wave abnormality now evident in Anterolateral leads Confirmed by THOR KWAN ([id number]), science editor FARHANA GALAN ([id number]) on 02/05/2018 2:47:45 PM Referred By: Bobo Zhu Confirmed By:THOR KWAN 02/05/18 1447 Date Thor Kwan MD CC: Geraldo Herndon MD; Suman Stern III, MD Signed PROGRESS Observed: 02/04/2018 Status: COMPLETED Source: [place] 1:52 PM [facility] REPOSITORY HNO ID: [id number] Author: Suman Stern III Service: (none) Author Type: Physician Type: Progress Notes Filed: 02/04/2018 1:52 PM Note Text: Demetrio, There is still evidence of iron deficiency though you are less anemic. Continue with the present dose of iron supplementation. Recheck labs in 6 months. Suman Stern III, MD, FAAFP CNOV Observed: 02/03/2018 Status: COMPLETED Source: [place] 3:40 PM [facility] REPOSITORY Office Visit (GENSWS) DEMETRIO KAISER ([id number]) 1935 F Date Time Provider Department 02/03/18 3:40 PM BOBO ZHU During your visit today, we recorded the following information about you: Bobo Zhu MD 02/07/2018 12:26 PM Signed FOLLOW UP VISIT - ENDOSCOPY NAME: Demetrio Kaiser [facility] NO.: [id number] DATE OF SERVICE: 02/03/2018 : 1935 REFERRING PHYSICIAN: Suman Stern III MD Demetrio is a patient I am following for anemia. Demetrio notes the following GI complaints: Demetrio denies abdominal pain.. Demetrio notes occasional diarrhea. Demetrio denies constipation. Demetrio denies a change in bowel habits. Demetrio is uncertain about melena. Demetrio denies bright red blood per rectum. Demetrio denies hemorrhoids. The patient had a syncopal episode and presented to [facility] on January 07, 2018. She was found to have severe anemia with initial hemoglobin of 7.2 with iron deficiency parameters and his serum iron level of less than 10. The patient had negative troponins performed. She had an echocardiogram performed which was normal. She was transfused 3 units of packed red cells. She had a urinalysis which was consistent with a urinary tract infection but denies UTI symptoms. She was not treated for her contaminated urine and no culture was obtained. 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 She has decreased ability to maintain her activities of daily living, she has decubitus ulcers. She has trouble ambulating and difficulty getting to the bathroom. She is dependent upon her wheelchair for ambulation and needs assistance at home for these activities of daily living. She had a previous colonoscopy , but cannot remember the location or date. She has not had previous upper endoscopy. She is on Coumadin for a history of blood clots. She understands this is venous not arterial I admitted her for bowel prep the night prior to endoscopy and performed upper and lower endoscopy on January 26, 2017. At admission and evaluation, the patient was also noted to have decubitus ulcers at the ischial and sacral prominence areas. 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 Pathology demonstrated: Mild gastritis which was H. pylori negative and inflammation at the GE junction. Her home nurse aide will now begin treatment for her decubiti. The patient notes no complaints since the procedure. VITALS: There were no vitals taken for this visit. On examination, the abdomen is benign. Assessment IMPRESSION: Significant anemia, no obvious source, possible resolved gastritis versus bleeding from AVM PLAN: If the patient notes any problems or changes in bowel function, the patient should contact me immediately. Otherwise I recommend follow up endoscopy as needed. I discussed with you the findings of your colonoscopy. Since there were no worrisome abnormalities, I recommend you undergo repeat endoscopic screening every 10 years. This is the current recommendation for colon cancer screening. If you note bleeding, change in bowel habits, or other suspicious colon related symptoms before that time, those symptoms should be evaluated as necessary. If the patient notes another significant bleeding episode- I recommended she present to [facility] emergency department and start with a nuclear medicine bleeding scan to assess location given her occult bleeding source Diagnoses: (D50.0) Iron deficiency anemia due to chronic blood loss (primary encounter diagnosis) Return to Clinic: The patient is instructed to follow- up with me as needed. MD Bobo Cotto MD 02/07/2018 12:25 PM Addendum The following instructions are important for you related to your office visit today with the [facility]. If the patient notes any problems or changes in bowel function, the patient should contact me immediately. Otherwise I recommend follow up endoscopy as needed. I discussed with you the findings of your colonoscopy. Since there were no worrisome abnormalities, I recommend you undergo repeat endoscopic screening every 10 years. This is the current recommendation for colon cancer screening. If you note bleeding, change in bowel habits, or other suspicious colon related symptoms before that time, those symptoms should be evaluated as necessary. If the patient notes another significant bleeding episode- I recommended she present to [facility] emergency department and start with a nuclear medicine bleeding scan to assess location given her occult bleeding source If you note any additional difficulties, questions, or concerns, you should contact our office immediately @ [phone] and ask to be transferred to the General Surgery department. Referring Provider: NO PCP [[id number]] Allergies As of Date: 02/03/2018 Noted Allergy Reaction AUGMENTIN (AMOXICILLIN-POT CLAVUL*04/13/2010 CEFTRIAXONE 04/13/2010 CELECOXIB 04/18/2003 Comments: itch IMURAN (AZATHIOPRINE SODIUM) 04/13/2010 LODINE (ETODOLAC) 02/17/2012 16 - Unknown METHOTREXATE 04/18/2003 Comments: affected liver(cirrhosis) NSAIDS (NON-STEROIDAL ANTI-INFLAM*04/18/2003 Comments: Hives Patient tolerates aspirin PENICILLINS 04/18/2003 Comments: nauseated and vomiting PURINE ANTAGONIST ANTIMETABOLITE 04/18/2003 Comments: nausea and vomiting SULFAMETHOXAZOLE-TRIMETHOPRIM 02/17/2012 2 - Rash Date Reviewed: 02/03/2018 Reviewed by: Fredy Sawyer LPN - Fully Assessed Reason for Visit: Post Op [174] Cmt: post op EGD/ Colonoscopy Primary Visit Diagnosis:Iron deficiency anemia due to chronic blood loss [D50.0] Prescriptions as of 02/03/2018 Sig: WARFARIN 1 MG TABLET 1 mg Fridays and 0.5 mg all o* CYANOCOBALAMIN (VIT B-12) 1,0* Inject 1,000 mcg intramuscula* PANTOPRAZOLE 40 MG TABLET,DEL* Take 40 mg by mouth once karyna* CYANOCOBALAMIN (VIT B-12) 1,0* Inject 1 mL intramuscularly o* FERROUS SULFATE 325 MG (65 MG* Take 1 tablet by mouth twice * MOMETASONE 0.1 % TOPICAL CREAM Apply 1 application to affect* SIMVASTATIN 20 MG TABLET Take 1 tablet by mouth daily * HYDROCODONE 5 MG-ACETAMINOPHE* Take 1 tablet by mouth every * LISINOPRIL 40 MG TABLET Take 1 tablet by mouth every * LEVOTHYROXINE 75 MCG CAPSULE Take 75 mcg by mouth once deana* AMLODIPINE 5 MG TABLET Take 1 tablet by mouth once d* FLUOXETINE 20 MG CAPSULE Take 1 capsule by mouth once * POLYETHYLENE GLYCOL 3350 17 G* 17 gram/8 oz water by mouth d* ALBUTEROL SULFATE HFA 90 MCG/* Inhale 2 Puffs as instructed * Problem List As Of Date 02/03/2018 Noted Resolved IRON DEFIC ANEMIA NOS [D50.9] INVALID FOR* Carpal tunnel syndrome [G56.00] INVALID FOR*02/21/2015 OSTEOPOROSIS NOS [M81.0] More... 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 ASTHMA UNSPECIFIED [J45.909] INVALID FOR* Open wound of knee, leg (except thigh), and ank*INVALID FOR*02/21/2015 Primary localized osteoarthrosis, lower leg [M1*INVALID FOR*02/21/2015 ADJUSTMENT DISORDER WITH DEPRESSED MOOD [F43.21]INVALID FOR* S/P RIGHT HIP JOINT REPLACEMENT [Z96.649] INVALID FOR*02/21/2015 LT HIP, COMPLIC MEDICAL LOGISTICS SPECIALIST JOINT DEVICE [996.77] [T*INVALID FOR*02/17/2012 Priority: D More... RIGHT KNEE RHEUM ARTHRITIS [714.2] [M05.60] INVALID FOR* S/P RIGHT KNEE REPLACEMENT [V43.65] [Z96.659] INVALID FOR*12/31/2016 LT KNEE, INFEC/INFLAM-MEDICAL LOGISTICS SPECIALIST JOINT DEV [996.66]*INVALID FOR*02/21/2015 SUMMARY [V999.95] INVALID FOR* More... Abnormal Stress Test [R94.39] INVALID FOR* Priority: A More... Hypertension [I10] INVALID FOR* Priority: C More... Femoral DVT (deep venous thrombosis) (HCC) [I82*INVALID FOR*02/21/2015 More... 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 Rheumatoid arthritis involving multiple sites (*INVALID FOR* Chronic anticoagulation [Z79.01] INVALID FOR* C. difficile enteritis [A04.72] INVALID FOR*04/01/2017 USP prescription opiate use [Z79.891] INVALID FOR* Other instructions from your clinician: The following instructions are important for you related to your office visit today with the [facility]. If the patient notes any problems or changes in bowel function, the patient should contact me immediately. Otherwise I recommend follow up endoscopy as needed. I discussed with you the findings of your colonoscopy. Since there were no worrisome abnormalities, I recommend you undergo repeat endoscopic screening every 10 years. This is the current recommendation for colon cancer screening. If you note bleeding, change in bowel habits, or other suspicious colon related symptoms before that time, those symptoms should be evaluated as necessary. If the patient notes another significant bleeding episode- I recommended she present to [facility] emergency department and start with a nuclear medicine bleeding scan to assess location given her occult bleeding source If you note any additional difficulties, questions, or concerns, you should contact our office immediately @ [phone] and ask to be transferred to the General Surgery department. Follow-up and Disposition History Recorded Encounter Status:Closed by BOBO ZHU MD on 02/07/18 CBC Collected: 02/03/2018 Status: F Source: [place] 3:01 PM [facility] REPOSITORY TYPE CODE TESTS RESULT OUT OF REFERENCE UNITS RANGE LAB WBC 3.70-11.00 k/uL WBC 8.47 LAB RBC 3.90-5.20 m/uL RBC 4.30 LAB HGB 11.5-15.5 g/dL Low Hemoglobin 10.4 LAB HCT 36.0-46.0 % Low Hematocrit 34.1 LAB MCV 80.0-100.0 fL Low MCV 79.3 LAB MCH 26.0-34.0 pG Low MCH 24.2 LAB MCHC 30.5-36.0 g/dL MCHC 30.5 LAB RDWCV 11.5-15.0 % RDW-CV High 24.6 LAB PLTCT 150-400 k/uL Platelet High Count 638 LAB MPV 9.0-12.7 fL MPV 9.8 LAB ABSNUC <0.01 k/uL Absolute nRBC <0.01 Performed By: #### FERR, IRON, CBC #### [facility] [address] [place], [place] [address] IRON AND TIBC Collected: 02/03/2018 Status: F Source: [place] 3:01 [facility] REPOSITORY TYPE CODE TESTS RESULT OUT OF REFERENCE UNITS RANGE LAB IRN 41-186 ug/dL Low Iron 14 LAB TIBC 232-386 ug/dL Low TIBC 175 LAB SAT 15-57 % Low Transferrin Saturatn 8 Performed By: #### FERR, IRON, CBC #### [facility] [address] [place], [place] [address] FERRITIN Collected: 02/03/2018 Status: F Source: [place] 3:01 [facility] REPOSITORY TYPE CODE TESTS RESULT OUT OF REFERENCE UNITS RANGE LAB FERR 14.7-205.1 ng/mL Ferritin 164.7 Performed By: #### FERR, IRON, CBC #### [facility] [address] [place], [place] [address] PROGRESS Observed: 02/02/2018 Status: COMPLETED Source: [place] 4:47 PM [facility] [place] REPOSITORY HNO ID: [id number] Author: Bobo Zhu Service: (none) Author Type: Physician Type: Progress Notes Filed: 02/07/2018 11:53 AM Note Text: OPERATIVE NOTATION FOR [facility] SURGICAL PROCEDURE. January 26, 2018 Demetrio Kaiser 1935 [id number] female PROCEDURE: EGD WITH BIOPSY - [id number] and COLONOSCOPY - [id number] SURGEON: Leila Zhu M.D. FACS [employer] ASSISTANT: None DEPT: WKemal PROVIDER: [id number] Zhu MD POS: [id number] DIAGNOSIS: (D50.0) Iron deficiency anemia due to chronic blood loss (primary encounter diagnosis) ASA CLASS: 3 - Severe FINDINGS: AVM duodenum, normal colon COMPLICATIONS: None PMHx - PAST MEDICAL HISTORY Diagnosis Date - Abnormal stress test 06/14/2010 [facility] yesterday 06/15 just showed mild irregularities, therefore she had a false positive stress test Continue asa 81, metoprolol and other bp agents (norvasc, HCTZ, lisinopril) Her LDL is 79 and she has had issues with myopathy in the past therefore will hold off on statin since only mild irregularities by cath. TTE 06/16 showed normal EF, 50-55%. 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 Bobo Zhu MD [facility] Observed: 01/27/2018 Status: COMPLETED Source: [place] 12:00 AM [facility] REPOSITORY [facility] DEMETRIO KAISER ([id number]) 1935 F Date Time Provider Department 01/27/18 [facility] During your visit today, we recorded the following information about you: Charlene Pace LPN 01/27/2018 1:14 PM Signed Last INR: INR 3.7 01/26/2018 Current dose of coumadin is: 1 mg fridays, 0.5 mg all other days. . Previous INR (date and result): 3.4 Suman Stern III MD 01/27/2018 1:40 PM Signed Continue present dose of Coumadin and recheck in 1 week. Suman Stern III, MD, FAAFP Suman Stern III MD 01/27/2018 1:40 PM Signed Continue present dose of Coumadin and recheck in 1 week. Suman Stern III, MD, FAAFP Charlene Pace LPN 01/27/2018 1:58 PM Signed Patient notified of results and she repeated back. Allergies As of Date: 01/27/2018 Noted Allergy Reaction AUGMENTIN (AMOXICILLIN-POT CLAVUL*04/13/2010 CEFTRIAXONE 04/13/2010 CELECOXIB 04/18/2003 Comments: itch IMURAN (AZATHIOPRINE SODIUM) 04/13/2010 LODINE (ETODOLAC) 02/17/2012 16 - Unknown METHOTREXATE 04/18/2003 Comments: affected liver(cirrhosis) NSAIDS (NON-STEROIDAL ANTI-INFLAM*04/18/2003 Comments: Hives Patient tolerates aspirin PENICILLINS 04/18/2003 Comments: nauseated and vomiting PURINE ANTAGONIST ANTIMETABOLITE 04/18/2003 Comments: nausea and vomiting SULFAMETHOXAZOLE-TRIMETHOPRIM 02/17/2012 2 - Rash Date Reviewed: 01/23/2018 Reviewed by: Bobo Zhu - Fully Assessed Reason for Visit: Anticoagulation [8] Order(s):PROTHROMBIN TIME/PT [SQPT] Order #: [id number] Prescriptions as of 01/27/2018 Sig: WARFARIN 1 MG TABLET 1 mg Fridays and 0.5 mg all o* CYANOCOBALAMIN (VIT B-12) 1,0* Inject 1,000 mcg intramuscula* PANTOPRAZOLE 40 MG TABLET,DEL* Take 40 mg by mouth once karyna* CYANOCOBALAMIN (VIT B-12) 1,0* Inject 1 mL intramuscularly o* FERROUS SULFATE 325 MG (65 MG* Take 1 tablet by mouth twice * MOMETASONE 0.1 % TOPICAL CREAM Apply 1 application to affect* SIMVASTATIN 20 MG TABLET Take 1 tablet by mouth daily * HYDROCODONE 5 MG-ACETAMINOPHE* Take 1 tablet by mouth every * LISINOPRIL 40 MG TABLET Take 1 tablet by mouth every * LEVOTHYROXINE 75 MCG CAPSULE Take 75 mcg by mouth once deana* AMLODIPINE 5 MG TABLET Take 1 tablet by mouth once d* FLUOXETINE 20 MG CAPSULE Take 1 capsule by mouth once * POLYETHYLENE GLYCOL 3350 17 G* 17 gram/8 oz water by mouth d* ALBUTEROL SULFATE HFA 90 MCG/* Inhale 2 Puffs as instructed * Problem List As Of Date 01/27/2018 Noted Resolved IRON DEFIC ANEMIA NOS [D50.9] INVALID FOR* Carpal tunnel syndrome [G56.00] INVALID FOR*02/21/2015 OSTEOPOROSIS NOS [M81.0] More... 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 ASTHMA UNSPECIFIED [J45.909] INVALID FOR* Open wound of knee, leg (except thigh), and ank*INVALID FOR*02/21/2015 Primary localized osteoarthrosis, lower leg [M1*INVALID FOR*02/21/2015 ADJUSTMENT DISORDER WITH DEPRESSED MOOD [F43.21]INVALID FOR* S/P RIGHT HIP JOINT REPLACEMENT [Z96.649] INVALID FOR*02/21/2015 LT HIP, COMPLIC MEDICAL LOGISTICS SPECIALIST JOINT DEVICE [996.77] [T*INVALID FOR*02/17/2012 Priority: D More... RIGHT KNEE RHEUM ARTHRITIS [714.2] [M05.60] INVALID FOR* S/P RIGHT KNEE REPLACEMENT [V43.65] [Z96.659] INVALID FOR*12/31/2016 LT KNEE, INFEC/INFLAM-MEDICAL LOGISTICS SPECIALIST JOINT DEV [996.66]*INVALID FOR*02/21/2015 SUMMARY [V999.95] INVALID FOR* More... Abnormal Stress Test [R94.39] INVALID FOR* Priority: A More... Hypertension [I10] INVALID FOR* Priority: C More... Femoral DVT (deep venous thrombosis) (HCC) [I82*INVALID FOR*02/21/2015 More... 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 Rheumatoid arthritis involving multiple sites (*INVALID FOR* Chronic anticoagulation [Z79.01] INVALID FOR* C. 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] INVALID FOR* Encounter Status:Closed by CHARLENE PACE LPN on 01/27/18 DISCHARGE INSTRUCTION Observed: 01/26/2018 Status: F Source: [place] 3:52 PM [facility] REPOSITORY [facility] Medical Records Department [address] [place] [address] Instructions for Home/Discharge Instructions 01/26/18 1550 MR#: [id number] Acct: [id number] Name: DEMETRIO KAISER Rep #: [id number] : 1935 82 From: Bobo Zhu MD PCP: Suman Stern III, MD Status: REG [facility] You will use the following diet at home:: No restrictions Discharge Activity: Return to Normal Activity Cleanse incision/area with: - - dressing placed should be good for 5 days unless it gets soiled. Calmoseptine twice a day as directed Allergies/Adverse Reactions: Allergies methotrexate Allergy (Verified 01/25/18 09:49) effect to liver arthritis medications Allergy (Uncoded 01/25/18 09:49) effected the liver Medications to take at Discharge RX: Levothyroxine [Synthroid] 100 mcg PO DAILY 07/28/16 RX: Lisinopril [Zestril] 40 mg PO DAILY 07/28/16 RX: Simvastatin [Zocor] 20 mg PO QHS 07/28/16 RX: Warfarin [Coumadin] 0.5 mg PO SUMOTUWETHSA 07/28/16 RX: Warfarin [Coumadin] 1 mg PO FR 07/28/16 Ondansetron [Zofran Odt] 4 mg PO Q8H PRN PRN #10 tablet 09/04/16 RX: Polyethylene Glycol 3350 [Miralax] 17 gm PO DAILY PRN 09/04/16 Acetaminophen [Tylenol Extra Strength] 500 mg PO Q6H 01/25/18 Hydrocodone Bitart/Apap 5-325 [[place] 5MG-325MG] 1 tablet PO Q6H PRN PRN 01/25/18 Pantoprazole Sodium [Pantoprazole Sodium] 40 mg PO DAILY PRN PRN 01/25/18 RX: Amlodipine [Norvasc] 5 mg PO DAILY 01/25/18 RX: Calcium Carbonate/Vitamin D3 [Os-Pollo 500-Vit D3 600 Caplet] 1 each PO BID 01/25/18 RX: Cholecalciferol (Vitamin D3) [D3-2000] 2,000 unit PO DAILY 01/25/18 RX: Iron Polysaccharide Complex [Ferrex 150] 150 mg PO DAILYCM 01/25/18 Primary Care Physician: Suman Stern III, MD [Primary Care Provider] - Please Follow Up With: Bobo Zhu MD When: follow up in one week 01/26/18 1552 <Electronically signed by Bobo Zhu MD> Date Bobo Zhu MD CC: Suman Stern III, MD DISCHARGE SUMMARY Observed: 01/26/2018 Status: F Source: [place] 3:50 PM [facility] REPOSITORY [facility] Medical Records Department [address] [place] [address] Discharge Summary 01/26/18 1539 MR#: [id number] Acct: [id number] Name: DEMETRIO KAISER Rep #: [id number] : 1935 82 From: Bobo Zhu MD PCP: Suman Stern III, MD Status: REG [facility] Y Location: [place] [address] Discharge Date and Diagnosis Date of Admission: 01/25/18 Date of Discharge: 01/26/18 - Primary Discharge Diagnosis anemia Malnutrition decubitus Impaired activities daily living status post above-knee amputation - Secondary Discharge Diagnosis Chronic Problems Osteoporosis (Chronic) Hypothyroidism (Chronic) Warfarin-induced coagulopathy (Chronic) hx VT-chronic Hypertension (Chronic) DVT (deep venous thrombosis) (Chronic) Hyperlipidemia (Chronic) Osteoarthritis of hips, bilateral (Chronic) Hospital Course and Treatment Consultations 01/25/18 10:54 Consult: 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 She was found to have iron deficiency anemia and transfused 3 units of packed cells. She was discharged to home. She was referred to me for upper and lower endoscopy due to anemia. The patient has a complicated past medical history including malnutrition and impaired activities of daily living, her wheelchair dependency, status post a left above-knee amputation. She is admitted to the hospital for bowel prep due to her inability to ambulate. On admission she was found to have a stage II sacral decubiti and stage I initial tuberosity decubiti. She was evaluated by the wound care nurse who will make recommendations for offloading and wound care. patient was found to have an albumin level of 2.1. Upper and lower endoscopy was performed which demonstrated a moderately large type I hiatal hernia with distal esophagitis with a duodenal AVM, but no signs of recent bleeding. Colonoscopy demonstrated normal colon and normal terminal ileum. The patient will be discharged home with plans to help my office in one week. She is already being maintained on a proton pump inhibitor. Home Medications: Medications to take at Discharge RX: Levothyroxine [Synthroid] 100 mcg PO DAILY 07/28/16 RX: Lisinopril [Zestril] 40 mg PO DAILY 07/28/16 RX: Simvastatin [Zocor] 20 mg PO QHS 07/28/16 RX: Warfarin [Coumadin] 0.5 mg PO SUMOTUWETHSA 07/28/16 RX: Warfarin [Coumadin] 1 mg PO FR 07/28/16 Ondansetron [Zofran Odt] 4 mg PO Q8H PRN PRN #10 tablet 09/04/16 RX: Polyethylene Glycol 3350 [Miralax] 17 gm PO DAILY PRN 09/04/16 Acetaminophen [Tylenol Extra Strength] 500 mg PO Q6H 01/25/18 Hydrocodone Bitart/Apap 5-325 [[place] 5MG-325MG] 1 tablet PO Q6H PRN PRN 01/25/18 Pantoprazole Sodium [Pantoprazole Sodium] 40 mg PO DAILY PRN PRN 01/25/18 RX: Amlodipine [Norvasc] 5 mg PO DAILY 01/25/18 RX: Calcium Carbonate/Vitamin D3 [Os-Pollo 500-Vit D3 600 Caplet] 1 each PO BID 01/25/18 RX: Cholecalciferol (Vitamin D3) [D3-2000] 2,000 unit PO DAILY 01/25/18 RX: Iron Polysaccharide Complex [Ferrex 150] 150 mg PO DAILYCM 01/25/18 Primary Care Physician: Suman Stern III, MD [Primary Care Provider] - Meaningful Use Info Meaningful Use Diagnoses (Choose all that apply): None applicable 01/26/18 9858 <Electronically signed by Bobo Zhu MD> Date Bobo Zhu MD Cosign Signature (if applicable): Date CC: Suman Stern III, MD; Bobo Zhu MD Signed OPERATIVE REPORT Observed: 01/26/2018 Status: F Source: [place] 3:04 PM [facility] REPOSITORY [facility] Medical Records Department [address] [place] [address] Operative Report 01/26/18 1502 MR#: [id number] Acct: [id number] Name: DEMETRIO KAISER Rep #: [id number] : 1935 82 From: Bobo Zhu MD PCP: Suman Stern III, MD Status: REG [facility] Y Location: [address] Report of Operation Date of Procedure: 01/26/18 Pre-Operative Diagnosis: anemia Post-Operative Diagnosis: none bleeding. Duodenal AVM, mild gastritis, moderate to large type I hiatal hernia, distal esophagitis. Normal colonoscopy. Normal-appearing terminal ileum Surgery/Procedure Performed:: EGD with biopsy, colonoscopy baker chef: None Specimen's removed: gastric antrum for H. pylori and pathology, distal esophagus Description of Procedure: The patient was brought to the endoscopy suite. Sign in was performed verifying patient, site, planned procedure, critical nursing information, the patient was monitored with cardiac, pulse oximetric, and blood pressure monitoring devices. Monitored anesthetic care was provided for sedation. Following IV sedation and after the oropharynx was sprayed with Cetacaine spray, a video gastroscope was inserted in the oropharynx and advanced down the esophagus without difficulty. The scope was advanced through the stomach, through the pylorus through the duodenum to the proximal jejunum. the jejunum appeared unremarkable. The duodenum demonstrated no signs of specific inflammation, but in the bulb. There was approximately a 3 mm AVM area. There were no signs of bleeding noted with this AVM. There was mild antral gastritis. A biopsy was taken for H. pylori and pathology. The scope was retroflexed-there was a moderate to large hiatal hernia. There was distal esophagitis consistent with reflux esophagitis. A biopsy was taken just proximal to the GE junction. The remainder of the esophagus was unremarkable. The patient was positioned for colonoscopy. A digital rectal exam was performed which revealed no palpable abnormalities. The video colonoscope was inserted and advanced to the cecum as verified by the ileocecal valve, cecal base anatomic features and palpation. the scope was inserted into the terminal ileum. There were no abnormalities noted. The terminal ileum. As the scope was withdrawn, the entire colon was unremarkable. There were a few sigmoid diverticula. The scope was retroflexed and this was unremarkable. The patient tolerated the procedure well and was brought to recovery in stable condition 01/26/18 1504 <Electronically signed by Bobo Zhu MD> Date Bobo Zhu MD CC: Suman Stern III, MD; Bobo Zhu MD Signed EGD ([facility]) Observed: 01/26/2018 Status: F Source: [place] 1:34 PM [facility] REPOSITORY Patient: DEMETRIO KAISER : 1935 (82/F) Acct Num: [id number] Phys: Bobo Zhu MD Unit Num: [id number] Loc: EN Specimen: [id number] Received: 01/26/18 - 1555 Spec Type: EGD BIOPSY TISSUES TISSUES: A. Gastric mucous membrane B. Gastric mucous membrane COMMENT A. The results of immunohistochemistry for Helicobacter pylori will be reported separately ([id number]). B. The specimen predominantly consists of squamous epithelium. Alcian blue/ PAS stain with matched control is used in the evaluation of the specimen. GROSS DESCRIPTION A - Received in fixative is one container labeled with the patient's name and designated gastric antrum. The specimen consists of multiple irregular fragments of light frazier soft tissue that in aggregate measure 1 x 0.3 x 0.1 cm. The specimen is totally submitted in one cassette. B - Received in fixative is one container labeled with the patient's name and designated GE junction. The specimen consists of one irregular fragment of light frazier soft tissue that measures 0.4 x 0.2 x 0.1 cm. The specimen is totally submitted in one cassette. / AM:cheri 01/27/18 TC:5 CPT: 52398 x2, 86721 HEADER OPERATION: EGD with biopsy PRE-OP DIAGNOSIS: Anemia TISSUE SUBMITTED: A Antrum biopsy, H. pylori and path, B GE junction MICROSCOPIC DESCRIPTION Slides are reviewed. A. The specimen shows fragments of gastric mucosa with chronic inflammatory cell infiltrates in the lamina propria consisting of lymphocytes and plasma cells, consistent with mild chronic gastritis. MICROSCOPIC DIAGNOSIS A. Antrum, biopsy: Mild gastritis. B. GE junction, biopsy: Fragments of gastroesophageal mucosa with acute and chronic inflammation. Negative for intestinal metaplasia (goblet cell metaplasia). See comment. SJ:cheri 01/28/18 Signed Brice Christianson 01/28/18 <signature on file> Performed By: #### PEGD #### [facility] [address] [place], [address] CNOP Observed: 01/26/2018 Status: COMPLETED Source: [place] 12:00 AM [facility] REPOSITORY Operative Note (Enc) (GENSWS) Progress Notes: Bobo Zhu MD 02/07/2018 11:53 AM Signed OPERATIVE NOTATION FOR [facility] SURGICAL PROCEDURE. January 26, 2018 Demetrio Kaiser 1935 [id number] female PROCEDURE: EGD WITH BIOPSY - 78760-203 and COLONOSCOPY - 57940-056 SURGEON: Leila Zhu M.D. 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 TTE 06/16 showed normal EF, 50-55%. 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 Bobo Zhu MD Encounter Status:Closed by BOBO ZHU MD on 02/07/18 IMMUNOHISTOCHEMISTRY Observed: 01/26/2018 Status: F Source: [place] 12:00 AM [facility] REPOSITORY Patient: DEMETRIO KAISER : 1935 (82/F) Acct Num: [id number] Phys: Bobo Zhu MD Unit Num: [id number] Loc: EN Specimen: [id number] Received: 01/28/18 - 1143 Spec Type: IMMUNO TISSUES TISSUES: A. Stomach, NOS SPECIMEN INFORMATION: Tissue Source: A Antrum biopsy Clinical Info: Anemia Specimen Number: [id number] CPT code: 38117 METHODOLOGY: Deparaffinized sections of prefer/formalin-fixed tissue or PAP/DQ stained slides are incubated with monoclonal/polyclonal antibodies/oligonucleotide probes. Localization is made via biotin free immunoperoxidase method. Appropriate controls are performed and reacted as expected. Results on target cell population are indicated in the following table: RESULTS: ANTIBODY / CLONE RESULT Block A H Pylori (polyclonal) negative These tests were developed and their performance characteristics determined by [facility]. They may not have been cleared or approved by the U.S. Food and Drug Administration. The FDA has determined that such clearance or approval is not necessary. INTERPRETATION: A. Antrum biopsy: Negative for Helicobacter pylori organisms. SJ:cheri 01/29/18 PHYSICIAN AND INSTITUTION [facility] [address] [place], [place] [address] Signed Brice Christianson 01/29/18 <signature on file> Performed By: #### PIMM #### [facility] [address] [place] [address]. [place], [address] URINALYSIS, COMPLETE Collected: 01/25/2018 Status: F Source: [place] 11:00 AM [facility] REPOSITORY Order Comment: Comments: st. cath How was Urine Obtained? CATHETER SPECIMEN TYPE CODE TESTS RESULT OUT OF RANGE REFERENCE UNITS LAB L400.3000 Yellow COLOR Normal Yellow LAB L400.3050 Clear Normal CLARITY Clear LAB L400.3200 Normal mg/dl Normal GLUCOSE, UR Normal LAB L400.3300 Negative mg/dL Normal BILIRUBIN URINE Negative LAB L400.3400 Negative mg/dl Normal KETONE UR Negative LAB L400.3465 1.002-1.030 Normal SP.GR. DIPSTX 1.015 LAB L400.3550 5.0 - 8.0 pH UR Normal 6.0 LAB L400.3600 Negative mg/dl High PROT 15 DIPSTX LAB L400.3700 Normal mg/dl Normal UROBILI Normal LAB L400.3750 Negative High NITRITE UR Positive LAB L400.3780 Negative /ul High 25 OCCULT BLOOD-UR LAB L400.3800 Negative /ul High LEUK ESTERASE 100 LAB L400.4050 0-5 /hpf WBC Normal 5-10 SEEN LAB L400.4100 0-5 /hpf 0 Normal RBC-UA SEEN LAB L400.4150 5-10 /hpf SQUAM 0 Normal EPI SEEN LAB L400.4300 None Seen /hpf 2+ Normal BACTERIA LAB L400.4350 <or=2+ /hpf 0 Normal MUCUS, URINE SEEN Performed By: #### L400.0001 #### [facility] [address] [place], [address] Observed: 01/25/2018 Status: F Source: [place] CULTURE, URINE 11:00 AM [facility] REPOSITORY Comments: st cath Urine Culture ORGANISM 1: Klebsiella pneumoniae sp pneum Palmer Count 50,000-80,000 Klebsiella pneumoniae sp pneum: REACTION Amoxacillin/Clavulanic Acid $ <=2 S Ampicillin $ 16 R Ampicillin/Sulbactam $ 4 S Cefazolin $ <=4 S Cefepime $ <=1 S Ceftriaxone $ <=1 S Ciprofloxacin $ <=0.25 S ESBL - Ertapenim $$$ <=0.5 S Gentamicin $ <=1 S Imipenem *NF <=0.25 S Levofloxacin $ <=0.12 S Nitrofurantoin $ <=16 S Piperacillin/Tazobactam $$ <=4 S Tobramycin $ <=1 S Trimethoprim/Sulfametho $ <=20 S (NF) indicates non-formulary drug at [facility]. Approval by Infectious Disease Specialist required before non-formulary drugs may be ordered and/or dispensed. Performed By: #### M100.0650 #### [facility] [address] [place], [place], [address] HISTORY AND PHYSICAL Observed: 01/25/2018 Status: F Source: [place] EXAM 10:54 AM [facility] REPOSITORY [facility] Medical Records Department [facility] [place] [address] [address] [place] [address] History and Physical 01/25/18 1052 MR#: [id number] Acct: [id number] Name: DEMETRIO KAISER Rep #: [id number] : 1935 82 From: Bobo Zhu MD PCP: Suman Stern III, MD Status: REG [facility] Y Location: [address] History and Physical Date of Admission: 01/25/18 HISTORY AND PHYSICAL Demetrio Kaiser 1935 REFERRING PHYSICIAN: Suman Stern III, MD CHIEF COMPLAINT: Consult (anemia) HPI: The patient is a 82 year old female referred for endoscopy. Demetrio notes the following GI complaints: Demetrio denies abdominal pain.. Demetrio notes occasional diarrhea. Demetrio denies constipation. Demetrio denies a change in bowel habits. Demetrio is uncertain about melena. Demetrio denies bright red blood per rectum. Demetrio denies hemorrhoids. The patient had a syncopal episode and presented to [facility] on January 07, 2018. She was found to have severe anemia with initial hemoglobin of 7.2 with iron deficiency parameters and his serum iron level of less than 10. The patient had negative troponins performed. She had an echocardiogram performed which was normal. She was transfused 3 units of packed red cells. She had a urinalysis which was consistent with a urinary tract infection but denies UTI symptoms. She was not treated for her contaminated urine and no culture was obtained. 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 She has decreased ability to maintain her activities of daily living, she has decubitus ulcers. She has trouble ambulating and difficulty getting to the bathroom. She is dependent upon her wheelchair for ambulation and needs assistance at home for these activities of daily living. She had a previous colonoscopy , but cannot remember the location or date. She has not had previous upper endoscopy. She is on Coumadin for a history of blood clots. She understands this is venous not arterial The patient is being seen by me today at the request of Dr. Suman Stern, III for my opinion and advice regarding anemia, likely GI source. 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 TTE 06/16 showed normal EF, 50-55%. 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 pantoprazole DR (PROTONIX) 40 mg tablet Take 40 mg by mouth once d aily. cyanocobalamin 1,000 mcg/mL soln Inject 1 mL intramuscularly once every month. amelie jerald sulfate 325 mg (65 mg iron) tablet Take 1 tablet by mouth twice daily. mometasone (E LOCON) 0.1 % cream Apply 1 application to affected area once daily. simvastatin (ZOCOR) 2 0 mg tablet Take 1 tablet by mouth daily at bedtime. HYDROcodone- acetaminophen (NORCO) 5- 325 mg per tablet Take 1 tablet by mouth every 6 hours as needed for Pain for up to 60 day s.Earliest Fill Date: 12/08/17 lisinopril (ZESTRIL, PRINIVIL) 40 mg tablet Take 1 tablet b y mouth every morning. Levothyroxine 75 mcg cap Take 75 mcg by mouth once daily. amLODIP ine (NORVASC) 5 mg tablet Take 1 tablet by mouth once daily. FLUoxetine (PROZAC) 20 mg ca psule Take 1 capsule by mouth once daily. polyethylene glycol 3350 (MIRALAX) 17 gram/dose powder 17 gram/8 oz water by mouth daily albuterol HFA 90 mcg/actuation inhaler Inhale 2 Puffs as instructed every 4hours as needed. FOR WHEEZING AND SHORTNESS OF BREATH. No c urrent facility-administered medications for this visit. ALLERGIES: Augmentin [Amoxicillin-Pot Clavulanate]; Ceftriaxone; Celecoxib; Imuran [Azathioprine Sodium]; Lodine [Etodolac]; Methotrexate; Nsaids (Non-Steroidal Anti-Inflammatory Drug); Penicillins; Purine Antagonist Antimetabolite; Sulfamethoxazole-Trimethoprim PERSONAL HISTORY: FAMILY HISTORY: FAMILY HISTORY Problem Relation Age of Onset Hearing Loss Mother Heart Fathe r Stroke Father Cancer Sister SKIN Cancer Brother SKIN D iabetes Brother Diabetes Sister Stroke Brother ASHD [OTHER] Brother Heart Other 2 nephews from heart disease ASHD [OTHER] Brother CABG 4 REVIEW OF SYMPTOMS: The review of systems data was entered by the nurse and reviewed by sd Nursing Notes: Ashlyn Centeno LPN 01/22/2018 2:53 PM Signed REVIEW OF SYSTEMS: General: The patient NOTES fatigue, denies weight loss, denies weight gain, denies feeling hot, and denies feelings of cold. Eyes: The patient denies glaucoma, NOTES eye injury/surgery, wears glasses or contacts. Ear/Nose/Throat: The patient denies allergies, denies hayfever, denies ear infections, and denies bloody noses. Cardiovascular: The patient denies chest pain, denies heart disease, NOTES high blood pressure,denies cardiac stent, denies prior heart attack, NOTES irregular heart beat, NOTES high cholesterol, denies poor circulation, denies heart failure, other cardiac issues, denies claudication, denies cold feet, denies peripheral arterial stent. Respiratory: The patient denies tuberculosis, denies pneumonia, denies frequent cough, NOTES pulmonary embolism, denies shortness of breath, and denies coughing up blood. Gastrointestinal: The patient denies difficulty swallowing, NOTES acid reflux, denies ulcers, denies vomiting, denies jaundice/hepatitis, denies gallbladder problems, NOTES black or tarry stools, denies hemorrhoids, denies bleeding from rectum, denies diverticulitis, denies constipation, denies diarrhea, denies loss of stool control, and denies hernias. Kidney/Bladder: The patient denies kidney stones, denies urine infections, and denies bloody urine. Skin: The patient denies a history of skin cancer, denies bleeding/changing moles, and NOTES a history of skin rash. Neurologic: The patient denies a history of epilepsy/convulsions, denies headaches, denies head/spinal injuries, and denies stroke/TIA. Psychiatric: The patient denies psychiatric medications, denies depression, and denies voices, denies substance abuse. Endocrine: The patient NOTES thyroid disorders, denies diabetes, and denies hormonal problems. Hematologic: The patient NOTES a history of bruising, denies bleeding, and NOTES anemia, NOTES blood clots. Infections: The patient denies a history of measles and mumps, denies rheumatic fever, and denies sexually transmitted diseases. Musculoskeletal: The patient denies back pain/injury, NOTES back problems, denies sciatica, denies knee/foot trouble, NOTES arthritis, or denies gout. When was patient's last Mammogram screening? N/A Last Colonoscopy: none Ashlyn Centeno LPN PHYSICAL EXAMINATION: General: The patient is 82 year old female, well nourished, well hydrated in no acute distress. The patient is oriented to time, place, and person. VITALS: Blood pressure 120/60, pulse 76, weight 60.3 kg (133 lb). Body mass index is 22.82 kg/(m HEENT: Normal cephalic, ataumatic, pupils are equally round, sclera are anicteric, mucous membranes are moist, oropharynx is clear. Neck has no masses, asymmetry or lymphadenopathy. Thyroid is unremarkable. Respiratory: Clear to auscultation and percussion. Normal respiratory excursion and pattern. Cardiac: Examination is regular rate and rhythm. Abdominal exam: Soft, nontender, with no palpable masses. No hepatosplenomegaly. No palpable hernias. Rectal exam: exam deferred - grade 2 decubitus approximately 2 x 2 centimeters tip of the coccyx and multiple more superficial, grade 2, 1 decubiti in the perianal skin. Extremities: no clubbing, cyanosis or edema. No adenopathy. - Status post left lower extremity above-knee amputation Other: LABORATORY VALUES: As Noted RADIOLOGIC STUDIES: As Noted Assessment IMPRESSION: Syncope, iron deficiency anemia, heme positive stools, likely GI bleed, impaired activities of daily living, wheelchair dependent, status post left lower extremity amputation. PLAN: I plan to perform upper and lower endoscopy. We discussed the risks and benefits of the planned endoscopy. I have informed the patient that complications can occur including failure to complete the endoscopy and perforation. The patient had the opportunity to ask questions concerning the planned endoscopy. My staff has also explained the procedure to the patient in understandable terms and has given the patient printed material concerning the procedure. The patient freely consents to surgery. I plan to use golytely bowel preparation for endoscopy. Due to the patient's wheelchair dependency and impaired activities of daily living. I plan to admit her to the hospital for bowel preparation. I also plan to repeat urinalysis and urine culture. I plan to hydrate her with IV fluids, given her history of hypertension and syncope in spite of her normal echocardiogram. The patient has medical comorbidities for which I plan to perform the procedure under monitored anesthetic care. will have wound care nurse assess her perianal area/decubiti, anticipated need for better unloading and nutrition. Diagnoses: (D50.9) Iron deficiency anemia, unspecified iron deficiency anemia type (primary encounter diagnosis) (R55) Syncope, unspecified syncope type (R01.1) Murmur (R82.90) Abnormal finding in urine My findings have been communicated to Dr. Suman Stern III MD via shared medical record. This note will be forwarded to Dr. Suman Stern III MD. Return to Clinic: The patient is instructed to follow-up with me after the testing has been completed. 01/25/18 1054 <Electronically signed by Bobo Zhu MD> Date Bobo Zhu MD Cosigner Signature: Date (if applicable) CC: Suman Stern III, MD; Bobo Zhu MD Signed CBC W/DIFF, AUTOMATED Collected: 01/25/2018 Status: F Source: [place] 10:37 AM [facility] REPOSITORY TYPE CODE TESTS RESULT OUT OF RANGE REFERENCE UNITS LAB L100.1000 4.4-11.0 K/mm3 Normal WBC 8.4 LAB L100.1200 4.2-5.4 M/mm3 Normal RBC 4.37 LAB L100.1300 12.0-15.0 g/dl Low HGB 10.2 LAB L100.1400 37-47 % Low HCT 34.3 LAB L100.1500 81-99 fL Low MCV 78.5 LAB L100.1600 27.0-32.0 pg Low MCH 23.3 LAB L100.1700 32-36 g/gl Low MCHC 29.7 LAB L100.1810 11.6-14.6 % High RDW CV 23.2 LAB L100.1820 35.1-43.9 fl High RDW SD 66.3 LAB L100.1900 150-450 K/mm3 High PLT 543 LAB L100.2000 6.2-12.0 fl Normal MPV 8.4 LAB L100.2100 47-70 % Normal NEUT% 65.6 LAB L100.2200 19-41 % Normal LY% 23.8 LAB L100.2300 0-10 % Normal MONO% 7.4 LAB L100.2400 0-5 % Normal EO% 2.6 LAB L100.2500 0-1 % Normal BASO% 0.4 LAB L100.2550 0.0-0.9 % Normal IM GRAN % 0.200 Result Comment: IG% - Immature Granulocytes (promyelocytes, myelocytes and metamyelocytes) > 1% indicates that a LEFT SHIFT is Present. LAB L100.2620 2.0-7.7 X10 3/uL Absolute Normal Neut 5.5 LAB L100.2720 0.83-4.51 X10 3/ul Absolute Normal Lymph 1.99 LAB L100.4500 SMEAR Normal COMMENT SCANNED LAB L100.7300 ANISO Normal 2+ LAB L100.7700 Normal MICROCYTES 1+ LAB L100.7800 Normal MACROCYTE 1+ Performed By: #### L100.0100, L500.4050 #### [facility] [address] [place], [address] COMPREHENSIVE METABOLIC Collected: 01/25/2018 Status: F Source: [facility] 10:37 AM [facility] REPOSITORY TYPE CODE TESTS RESULT OUT OF RANGE REFERENCE UNITS LAB L501.0100 74-106 mg/dL Normal GLU 106 Result Comment: Fasting Glucose result from 100 to 125 mg/dL suggests IMPAIRED HOMEOSTASIS per A.D.A. criteria. Please note revised GLUCOSE reference range effective 2017. LAB L501.1000 7-18 mg/dL Normal BUN 11 LAB L501.1100 0.55-1.02 mg/dL Normal CREAT,SERUM 0.56 Result Comment: The validity of the calculated GFR AND GFRAA in patients over 70 years has not been determined. Clinical correlation is essential. LAB L501.1110 >60 mL/min Normal EST GFR 110 Result Comment: Non- GFR Calc LAB L501.1115 >60 mL/min Normal EST GFR - AA 133 Result Comment: GFR Calc LAB L501.1255 ml/min Normal Estimated CRCL 38.75 LAB L501.1300 10-20 RATIO Normal BUN/CRE 19.5 LAB L501.1500 6.4-8. g/dL Normal 2 T PROT 6.5 LAB L501.1800 3.2-5. g/dL Low 0 ALB 2.1 LAB L501.1950 2.2-4. g/dL High 2 GLOB 4.4 LAB L501.2000 0.9-2. RATIO Low 4 A/G 0.5 LAB L501.2200 8.5-10 mg/dL Low .1 CA 7.9 LAB L501.4100 15-37 U/L Low AST 8 LAB L501.4305 45-117 U/L High ALK P 118 LAB L501.4405 13-56 U/L Low ALT 7 Result Comment: Please note revised ALT reference range effective 2017. LAB L501.4600 0.20-1.00 mg/dL Normal T BILI 0.20 LAB L501.5300 136-145 mmol/L Normal NA 142 LAB L501.5600 3.5-5.1 mmol/L Normal K 3.5 LAB L501.5900 98-107 mmol/L Normal CL 107 LAB L501.6100 21.0-32.0 mmol/L Normal CO2 29.0 LAB L501.6200 5-15 Normal GAP 6 Performed By: #### L100.0100, L500.4050 #### [facility] [address] [place], [place], [address] PROGRESS Observed: 01/22/2018 Status: COMPLETED Source: [place] 5:22 PM [facility] [place] REPOSITORY [facility] ID: [id number] Author: Bobo Zhu Service: (none) Author Type: Physician Type: Progress Notes Filed: 01/23/2018 10:43 AM Note Text: HISTORY AND PHYSICAL Demetrio Kaiser 1935 REFERRING PHYSICIAN: Suman Stern III, MD CHIEF COMPLAINT: Consult (anemia) HPI: The patient is a 82 year old female referred for endoscopy. Demetrio notes the following GI complaints: Demetrio denies abdominal pain.. Demetrio notes occasional diarrhea. Demetrio denies constipation. Demetrio denies a change in bowel habits. Demetrio is uncertain about melena. Demetrio denies bright red blood per rectum. Demetrio denies hemorrhoids. The patient had a syncopal episode and presented to [facility] on January 07, 2018. She was found to have severe anemia with initial hemoglobin of 7.2 with iron deficiency parameters and his serum iron level of less than 10. The patient had negative troponins performed. She had an echocardiogram performed which was normal. She was transfused 3 units of packed red cells. She had a urinalysis which was consistent with a urinary tract infection but denies UTI symptoms. She was not treated for her contaminated urine and no culture was obtained. 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 She has decreased ability to maintain her activities of daily living, she has decubitus ulcers. She has trouble ambulating and difficulty getting to the bathroom. She is dependent upon her wheelchair for ambulation and needs assistance at home for these activities of daily living. She had a previous colonoscopy , but cannot remember the location or date. She has not had previous upper endoscopy. She is on Coumadin for a history of blood clots. She understands this is venous not arterial The patient is being seen by me today at the request of Dr. Suman Stern III MD for my opinion and advice regarding anemia, likely GI source. 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 TTE 06/16 showed normal EF, 50-55%. 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 12/08/2017 - Osteoarthritis of hip - Osteoporosis, unspecified Osteoporosis - Other specified anemias - Peripheral vascular disease (HCC) - Pulmonary embolus (HCC) 07/04/2010 - Rheumatoid arthritis involving multiple sites (HCC) 10/10/2015 - Rheumatoid arthritis(714.0) - Unspecified hemorrhoids without mention of complication Hemorrhoids PAST SURGICAL HISTORY Procedure Laterality Date - AMPUTATE LEG AT THIGH Left 02/2012 - CHOLECYSTECTOMY - COLONOSCOP W/ OR W/O [facility] SPEC 01-28-05 Colonoscopy-repeat in - EGD W/O OR W/BRUSH/WASH EGD - TOTAL HIP REPLACEMENT Hip replacement, total LEFT AND RIGHT - TOTAL KNEE REPLACEMENT Knee replacement, total BILATERAL Current Outpatient Prescriptions: warfarin (COUMADIN) 1 mg tablet 1 mg Fridays and 0.5 mg all other days cyanocobalamin (VITAMIN B-12) 1,000 mcg/mL soln Inject 1,000 mcg intramuscularly once each week. pantoprazole DR (PROTONIX) 40 mg tablet Take 40 mg by mouth once daily. cyanocobalamin 1,000 mcg/mL soln Inject 1 mL intramuscularly once every month. ferrous sulfate 325 mg (65 mg iron) tablet Take 1 tablet by mouth twice daily. mometasone (ELOCON) 0.1 % cream Apply 1 application to affected area once daily. simvastatin (ZOCOR) 20 mg tablet Take 1 tablet by mouth daily at bedtime. HYDROcodone-acetaminophen (NORCO) 5-325 mg per tablet Take 1 tablet by mouth every 6 hours as needed for Pain for up to 60 days.Earliest Fill Date: 12/08/17 lisinopril (ZESTRIL, PRINIVIL) 40 mg tablet Take 1 tablet by mouth every morning. Levothyroxine 75 mcg cap Take 75 mcg by mouth once daily. amLODIPine (NORVASC) 5 mg tablet Take 1 tablet by mouth once daily. FLUoxetine (PROZAC) 20 mg capsule Take 1 capsule by mouth once daily. polyethylene glycol 3350 (MIRALAX) 17 gram/dose powder 17 gram/8 oz water by mouth daily albuterol HFA 90 mcg/actuation inhaler Inhale 2 Puffs as instructed every 4 hours as needed. FOR WHEEZING AND SHORTNESS OF BREATH. No current facility-administered medications for this visit. ALLERGIES: Augmentin [Amoxicillin-Pot Clavulanate]; Ceftriaxone; Celecoxib; Imuran [Azathioprine Sodium]; Lodine [Etodolac]; Methotrexate; Nsaids (Non-Steroidal Anti-Inflammatory Drug); Penicillins; Purine Antagonist Antimetabolite; Sulfamethoxazole-Trimethoprim PERSONAL HISTORY: Social History Marital status: Spouse name: Years of education: Number of children: Social History Main Topics Smoking status: Never Smoker Smokeless status: Never Used Alcohol use: No Drug use: No FAMILY HISTORY: FAMILY HISTORY Problem Relation Age of Onset - Hearing Loss Mother - Heart Father - Stroke Father - Cancer Sister SKIN - Cancer Brother SKIN - Diabetes Brother - Diabetes Sister - Stroke Brother - ASHD [OTHER] Brother - Heart Other 2 nephews from heart disease - ASHD [OTHER] Brother CABG 4 REVIEW OF SYMPTOMS: The review of systems data was entered by the nurse and reviewed by sd Nursing Notes: Ashlyn Centeno LPN 01/22/2018 2:53 PM Signed REVIEW OF SYSTEMS: General: The patient NOTES fatigue, denies weight loss, denies weight gain, denies feeling hot, and denies feelings of cold. Eyes: The patient denies glaucoma, NOTES eye injury/surgery, wears glasses or contacts. Ear/Nose/Throat: The patient denies allergies, denies hayfever, denies ear infections, and denies bloody noses. Cardiovascular: The patient denies chest pain, denies heart disease, NOTES high blood pressure,denies cardiac stent, denies prior heart attack, NOTES irregular heart beat, NOTES high cholesterol, denies poor circulation, denies heart failure, other cardiac issues, denies claudication, denies cold feet, denies peripheral arterial stent. Respiratory: The patient denies tuberculosis, denies pneumonia, denies frequent cough, NOTES pulmonary embolism, denies shortness of breath, and denies coughing up blood. Gastrointestinal: The patient denies difficulty swallowing, NOTES acid reflux, denies ulcers, denies vomiting, denies jaundice/hepatitis, denies gallbladder problems, NOTES black or tarry stools, denies hemorrhoids, denies bleeding from rectum, denies diverticulitis, denies constipation, denies diarrhea, denies loss of stool control, and denies hernias. Kidney/Bladder: The patient denies kidney stones, denies urine infections, and denies bloody urine. Skin: The patient denies a history of skin cancer, denies bleeding/changing moles, and NOTES a history of skin rash. Neurologic: The patient denies a history of epilepsy/convulsions, denies headaches, denies head/spinal injuries, and denies stroke/TIA. Psychiatric: The patient denies psychiatric medications, denies depression, and denies voices, denies substance abuse. Endocrine: The patient NOTES thyroid disorders, denies diabetes, and denies hormonal problems. Hematologic: The patient NOTES a history of bruising, denies bleeding, and NOTES anemia, NOTES blood clots. Infections: The patient denies a history of measles and mumps, denies rheumatic fever, and denies sexually transmitted diseases. Musculoskeletal: The patient denies back pain/injury, NOTES back problems, denies sciatica, denies knee/foot trouble, NOTES arthritis, or denies gout. When was patient's last Mammogram screening? N/A Last Colonoscopy: none Ashlyn Centeno LPN PHYSICAL EXAMINATION: General: The patient is 82 year old female, well nourished, well hydrated in no acute distress. The patient is oriented to time, place, and person. VITALS: Blood pressure 120/60, pulse 76, weight 60.3 kg (133 lb). Body mass index is 22.82 kg/(m2). HEENT: Normal cephalic, ataumatic, pupils are equally round, sclera are anicteric, mucous membranes are moist, oropharynx is clear. Neck has no masses, asymmetry or lymphadenopathy. Thyroid is unremarkable. Respiratory: Clear to auscultation and percussion. Normal respiratory excursion and pattern. Cardiac: Examination is regular rate and rhythm. Abdominal exam: Soft, nontender, with no palpable masses. No hepatosplenomegaly. No palpable hernias. Rectal exam: exam deferred Extremities: no clubbing, cyanosis or edema. No adenopathy. - Status post left lower extremity above-knee amputation Other: LABORATORY VALUES: As Noted RADIOLOGIC STUDIES: As Noted Assessment IMPRESSION: Syncope, iron deficiency anemia, heme positive stools, likely GI bleed, impaired activities of daily living, wheelchair dependent, status post left lower extremity amputation. PLAN: I plan to perform upper and lower endoscopy. We discussed the risks and benefits of the planned endoscopy. I have informed the patient that complications can occur including failure to complete the endoscopy and perforation. The patient had the opportunity to ask questions concerning the planned endoscopy. My staff has also explained the procedure to the patient in understandable terms and has given the patient printed material concerning the procedure. The patient freely consents to surgery. I plan to use golytely bowel preparation for endoscopy. Due to the patient's wheelchair dependency and impaired activities of daily living. I plan to admit her to the hospital for bowel preparation. I also plan to repeat urinalysis and urine culture. I plan to hydrate her with IV fluids, given her history of hypertension and syncope in spite of her normal echocardiogram. The patient has medical comorbidities for which I plan to perform the procedure under monitored anesthetic care. Diagnoses: (D50.9) Iron deficiency anemia, unspecified iron deficiency anemia type (primary encounter diagnosis) (R55) Syncope, unspecified syncope type (R01.1) Murmur (R82.90) Abnormal finding in urine My findings have been communicated to Dr. Suman Stern III MD via shared medical record. This note will be forwarded to Dr. Suman Stern III MD. Return to Clinic: The patient is instructed to follow-up with me after the testing has been completed. Bobo Zhu MD CNOV Observed: 01/22/2018 Status: COMPLETED Source: [place] 1:50 PM [facility] REPOSITORY Office Visit (GENSWS) DEMETRIO KAISER ([id number]) 1935 F Date Time Provider Department 01/22/18 1:50 PM BOBO ZHU During your visit today, we recorded the following information about you: Pulse Blood pressure Weight 76/minute 120/60 60.3 kg Ashlyn Centeno LPN 01/22/2018 2:53 PM Signed REVIEW OF SYSTEMS: General: The patient NOTES fatigue, denies weight loss, denies weight gain, denies feeling hot, and denies feelings of cold. Eyes: The patient denies glaucoma, NOTES eye injury/surgery, wears glasses or contacts. Ear/Nose/Throat: The patient denies allergies, denies hayfever, denies ear infections, and denies bloody noses. Cardiovascular: The patient denies chest pain, denies heart disease, NOTES high blood pressure,denies cardiac stent, denies prior heart attack, NOTES irregular heart beat, NOTES high cholesterol, denies poor circulation, denies heart failure, other cardiac issues, denies claudication, denies cold feet, denies peripheral arterial stent. Respiratory: The patient denies tuberculosis, denies pneumonia, denies frequent cough, NOTES pulmonary embolism, denies shortness of breath, and denies coughing up blood. Gastrointestinal: The patient denies difficulty swallowing, NOTES acid reflux, denies ulcers, denies vomiting, denies jaundice/hepatitis, denies gallbladder problems, NOTES black or tarry stools, denies hemorrhoids, denies bleeding from rectum, denies diverticulitis, denies constipation, denies diarrhea, denies loss of stool control, and denies hernias. Kidney/Bladder: The patient denies kidney stones, denies urine infections, and denies bloody urine. Skin: The patient denies a history of skin cancer, denies bleeding/changing moles, and NOTES a history of skin rash. Neurologic: The patient denies a history of epilepsy/convulsions, denies headaches, denies head/spinal injuries, and denies stroke/TIA. Psychiatric: The patient denies psychiatric medications, denies depression, and denies voices, denies substance abuse. Endocrine: The patient NOTES thyroid disorders, denies diabetes, and denies hormonal problems. Hematologic: The patient NOTES a history of bruising, denies bleeding, and NOTES anemia, NOTES blood clots. Infections: The patient denies a history of measles and mumps, denies rheumatic fever, and denies sexually transmitted diseases. Musculoskeletal: The patient denies back pain/injury, NOTES back problems, denies sciatica, denies knee/foot trouble, NOTES arthritis, or denies gout. When was patient's last Mammogram screening? N/A Last Colonoscopy: none Ashlyn Zhu MD 01/23/2018 10:43 AM Signed HISTORY AND PHYSICAL Demetrio Kaiser 1935 REFERRING PHYSICIAN: Suman Stern III, MD CHIEF COMPLAINT: Consult (anemia) HPI: The patient is a 82 year old female referred for endoscopy. Demetrio notes the following GI complaints: Demetrio denies abdominal pain.. Demetrio notes occasional diarrhea. Demetrio denies constipation. Demetrio denies a change in bowel habits. Demetrio is uncertain about melena. Demetrio denies bright red blood per rectum. Demetrio denies hemorrhoids. The patient had a syncopal episode and presented to [facility] on January 07, 2018. She was found to have severe anemia with initial hemoglobin of 7.2 with iron deficiency parameters and his serum iron level of less than 10. The patient had negative troponins performed. She had an echocardiogram performed which was normal. She was transfused 3 units of packed red cells. She had a urinalysis which was consistent with a urinary tract infection but denies UTI symptoms. She was not treated for her contaminated urine and no culture was obtained. 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 She has decreased ability to maintain her activities of daily living, she has decubitus ulcers. She has trouble ambulating and difficulty getting to the bathroom. She is dependent upon her wheelchair for ambulation and needs assistance at home for these activities of daily living. She had a previous colonoscopy , but cannot remember the location or date. She has not had previous upper endoscopy. She is on Coumadin for a history of blood clots. She understands this is venous not arterial The patient is being seen by me today at the request of Dr. Suman Stern III MD for my opinion and advice regarding anemia, likely GI source. 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 TTE 06/16 showed normal EF, 50-55%. 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 - Esophagitis - Essential hypertension, benign - Hyperlipidemia LDL goal ANDlt; 100 07/16/2013 - Hypothyroidism 10/08/2010 - [employer] prescription opiate use 12/08/2017 - Osteoarthritis of hip - Osteoporosis, unspecified Osteoporosis - Other specified anemias - Peripheral vascular disease (HCC) - Pulmonary embolus (HCC) 07/04/2010 - Rheumatoid arthritis involving multiple sites (HCC) 10/10/2015 - Rheumatoid arthritis(714.0) - Unspecified hemorrhoids without mention of complication Hemorrhoids PAST SURGICAL HISTORY Procedure Laterality Date - AMPUTATE LEG AT THIGH Left 02/2012 - CHOLECYSTECTOMY - COLONOSCOP W/ OR W/O [facility] SPEC 01-28-05 Colonoscopy-repeat in - EGD W/O OR W/BRUSH/WASH EGD - TOTAL HIP REPLACEMENT Hip replacement, total LEFT AND RIGHT - TOTAL KNEE REPLACEMENT Knee replacement, total BILATERAL Current Outpatient Prescriptions: warfarin (COUMADIN) 1 mg tablet 1 mg Fridays and 0.5 mg all other days cyanocobalamin (VITAMIN B-12) 1,000 mcg/mL soln Inject 1,000 mcg intramuscularly once each week. pantoprazole DR (PROTONIX) 40 mg tablet Take 40 mg by mouth once daily. cyanocobalamin 1,000 mcg/mL soln Inject 1 mL intramuscularly once every month. ferrous sulfate 325 mg (65 mg iron) tablet Take 1 tablet by mouth twice daily. mometasone (ELOCON) 0.1 % cream Apply 1 application to affected area once daily. simvastatin (ZOCOR) 20 mg tablet Take 1 tablet by mouth daily at bedtime. HYDROcodone-acetaminophen (NORCO) 5-325 mg per tablet Take 1 tablet by mouth every 6 hours as needed for Pain for up to 60 days.Earliest Fill Date: 12/08/17 lisinopril (ZESTRIL, PRINIVIL) 40 mg tablet Take 1 tablet by mouth every morning. Levothyroxine 75 mcg cap Take 75 mcg by mouth once daily. amLODIPine (NORVASC) 5 mg tablet Take 1 tablet by mouth once daily. FLUoxetine (PROZAC) 20 mg capsule Take 1 capsule by mouth once daily. polyethylene glycol 3350 (MIRALAX) 17 gram/dose powder 17 gram/8 oz water by mouth daily albuterol HFA 90 mcg/actuation inhaler Inhale 2 Puffs as instructed every 4 hours as needed. FOR WHEEZING AND SHORTNESS OF BREATH. No current facility-administered medications for this visit. ALLERGIES: Augmentin [Amoxicillin-Pot Clavulanate]; Ceftriaxone; Celecoxib; Imuran [Azathioprine Sodium]; Lodine [Etodolac]; Methotrexate; Nsaids (Non-Steroidal Anti-Inflammatory Drug); Penicillins; Purine Antagonist Antimetabolite; Sulfamethoxazole-Trimethoprim PERSONAL HISTORY: Social History Marital status: Spouse name: Years of education: Number of children: Social History Main Topics Smoking status: Never Smoker Smokeless status: Never Used Alcohol use: No Drug use: No FAMILY HISTORY: FAMILY HISTORY Problem Relation Age of Onset - Hearing Loss Mother - Heart Father - Stroke Father - Cancer Sister SKIN - Cancer Brother SKIN - Diabetes Brother - Diabetes Sister - Stroke Brother - ASHD [OTHER] Brother - Heart Other 2 nephews from heart disease - ASHD [OTHER] Brother CABG 4 REVIEW OF SYMPTOMS: The review of systems data was entered by the nurse and reviewed by sd Nursing Notes: Ashlyn Centeno LPN 01/22/2018 2:53 PM Signed REVIEW OF SYSTEMS: General: The patient NOTES fatigue, denies weight loss, denies weight gain, denies feeling hot, and denies feelings of cold. Eyes: The patient denies glaucoma, NOTES eye injury/surgery, wears glasses or contacts. Ear/Nose/Throat: The patient denies allergies, denies hayfever, denies ear infections, and denies bloody noses. Cardiovascular: The patient denies chest pain, denies heart disease, NOTES high blood pressure,denies cardiac stent, denies prior heart attack, NOTES irregular heart beat, NOTES high cholesterol, denies poor circulation, denies heart failure, other cardiac issues, denies claudication, denies cold feet, denies peripheral arterial stent. Respiratory: The patient denies tuberculosis, denies pneumonia, denies frequent cough, NOTES pulmonary embolism, denies shortness of breath, and denies coughing up blood. Gastrointestinal: The patient denies difficulty swallowing, NOTES acid reflux, denies ulcers, denies vomiting, denies jaundice/hepatitis, denies gallbladder problems, NOTES black or tarry stools, denies hemorrhoids, denies bleeding from rectum, denies diverticulitis, denies constipation, denies diarrhea, denies loss of stool control, and denies hernias. Kidney/Bladder: The patient denies kidney stones, denies urine infections, and denies bloody urine. Skin: The patient denies a history of skin cancer, denies bleeding/changing moles, and NOTES a history of skin rash. Neurologic: The patient denies a history of epilepsy/convulsions, denies headaches, denies head/spinal injuries, and denies stroke/TIA. Psychiatric: The patient denies psychiatric medications, denies depression, and denies voices, denies substance abuse. Endocrine: The patient NOTES thyroid disorders, denies diabetes, and denies hormonal problems. Hematologic: The patient NOTES a history of bruising, denies bleeding, and NOTES anemia, NOTES blood clots. Infections: The patient denies a history of measles and mumps, denies rheumatic fever, and denies sexually transmitted diseases. Musculoskeletal: The patient denies back pain/injury, NOTES back problems, denies sciatica, denies knee/foot trouble, NOTES arthritis, or denies gout. When was patient's last Mammogram screening? N/A Last Colonoscopy: none Ashlyn eCnteno LPN PHYSICAL EXAMINATION: General: The patient is 82 year old female, well nourished, well hydrated in no acute distress. The patient is oriented to time, place, and person. VITALS: Blood pressure 120/60, pulse 76, weight 60.3 kg (133 lb). Body mass index is 22.82 kg/(m2). HEENT: Normal cephalic, ataumatic, pupils are equally round, sclera are anicteric, mucous membranes are moist, oropharynx is clear. Neck has no masses, asymmetry or lymphadenopathy. Thyroid is unremarkable. Respiratory: Clear to auscultation and percussion. Normal respiratory excursion and pattern. Cardiac: Examination is regular rate and rhythm. Abdominal exam: Soft, nontender, with no palpable masses. No hepatosplenomegaly. No palpable hernias. Rectal exam: exam deferred Extremities: no clubbing, cyanosis or edema. No adenopathy. - Status post left lower extremity above-knee amputation Other: LABORATORY VALUES: As Noted RADIOLOGIC STUDIES: As Noted Assessment IMPRESSION: Syncope, iron deficiency anemia, heme positive stools, likely GI bleed, impaired activities of daily living, wheelchair dependent, status post left lower extremity amputation. PLAN: I plan to perform upper and lower endoscopy. We discussed the risks and benefits of the planned endoscopy. I have informed the patient that complications can occur including failure to complete the endoscopy and perforation. The patient had the opportunity to ask questions concerning the planned endoscopy. My staff has also explained the procedure to the patient in understandable terms and has given the patient printed material concerning the procedure. The patient freely consents to surgery. I plan to use golytely bowel preparation for endoscopy. Due to the patient's wheelchair dependency and impaired activities of daily living. I plan to admit her to the hospital for bowel preparation. I also plan to repeat urinalysis and urine culture. I plan to hydrate her with IV fluids, given her history of hypertension and syncope in spite of her normal echocardiogram. The patient has medical comorbidities for which I plan to perform the procedure under monitored anesthetic care. Diagnoses: (D50.9) Iron deficiency anemia, unspecified iron deficiency anemia type (primary encounter diagnosis) (R55) Syncope, unspecified syncope type (R01.1) Murmur (R82.90) Abnormal finding in urine My findings have been communicated to Dr. Suman Stern III MD via shared medical record. This note will be forwarded to Dr. Suman Stern III MD. Return to Clinic: The patient is instructed to follow-up with me after the testing has been completed. MD Bobo Cotto MD 01/23/2018 10:43 AM Signed The following instructions are important for you related to your office visit today with the [facility]. The patient will be admitted on Friday for bowel preparation and preprocedure laboratory studies and plan for upper and lower endoscopy on Friday If you note any additional difficulties, questions, or concerns, you should contact our office immediately @ [phone] and ask to be transferred to the General Surgery department. Referring Provider: SUMAN STERN III [[id number]] Allergies As of Date: 01/22/2018 Noted Allergy Reaction AUGMENTIN (AMOXICILLIN-POT CLAVUL*04/13/2010 CEFTRIAXONE 04/13/2010 CELECOXIB 04/18/2003 Comments: itch IMURAN (AZATHIOPRINE SODIUM) 04/13/2010 LODINE (ETODOLAC) 02/17/2012 16 - Unknown METHOTREXATE 04/18/2003 Comments: affected liver(cirrhosis) NSAIDS (NON-STEROIDAL ANTI-INFLAM*04/18/2003 Comments: Hives Patient tolerates aspirin PENICILLINS 04/18/2003 Comments: nauseated and vomiting PURINE ANTAGONIST ANTIMETABOLITE 04/18/2003 Comments: nausea and vomiting SULFAMETHOXAZOLE-TRIMETHOPRIM 02/17/2012 2 - Rash Date Reviewed: 01/22/2018 Reviewed by: Bobo Zhu - Fully Assessed Reason for Visit: Consult [173] Cmt: anemia Primary Visit Diagnosis:Iron deficiency anemia, unspecified iron deficiency anemia type [D50.9] Other Visit Diagnoses:Syncope, unspecified syncope type [R55] Murmur [R01.1] Abnormal finding in urine [R82.90] Prescriptions as of 01/22/2018 Sig: WARFARIN 1 MG TABLET 1 mg Fridays and 0.5 mg all o* CYANOCOBALAMIN (VIT B-12) 1,0* Inject 1,000 mcg intramuscula* PANTOPRAZOLE 40 MG TABLET,DEL* Take 40 mg by mouth once karyna* CYANOCOBALAMIN (VIT B-12) 1,0* Inject 1 mL intramuscularly o* FERROUS SULFATE 325 MG (65 MG* Take 1 tablet by mouth twice * MOMETASONE 0.1 % TOPICAL CREAM Apply 1 application to affect* SIMVASTATIN 20 MG TABLET Take 1 tablet by mouth daily * HYDROCODONE 5 MG-ACETAMINOPHE* Take 1 tablet by mouth every * LISINOPRIL 40 MG TABLET Take 1 tablet by mouth every * LEVOTHYROXINE 75 MCG CAPSULE Take 75 mcg by mouth once deana* AMLODIPINE 5 MG TABLET Take 1 tablet by mouth once d* FLUOXETINE 20 MG CAPSULE Take 1 capsule by mouth once * POLYETHYLENE GLYCOL 3350 17 G* 17 gram/8 oz water by mouth d* ALBUTEROL SULFATE HFA 90 MCG/* Inhale 2 Puffs as instructed * Problem List As Of Date 01/22/2018 Noted Resolved IRON DEFIC ANEMIA NOS [D50.9] INVALID FOR* Carpal tunnel syndrome [G56.00] INVALID FOR*02/21/2015 OSTEOPOROSIS NOS [M81.0] More... 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 ASTHMA UNSPECIFIED [J45.909] INVALID FOR* Open wound of knee, leg (except thigh), and ank*INVALID FOR*02/21/2015 Primary localized osteoarthrosis, lower leg [M1*INVALID FOR*02/21/2015 ADJUSTMENT DISORDER WITH DEPRESSED MOOD [F43.21]INVALID FOR* S/P RIGHT HIP JOINT REPLACEMENT [Z96.649] INVALID FOR*02/21/2015 LT HIP, COMPLIC MEDICAL LOGISTICS SPECIALIST JOINT DEVICE [996.77] [T*INVALID FOR*02/17/2012 Priority: D More... RIGHT KNEE RHEUM ARTHRITIS [714.2] [M05.60] INVALID FOR* S/P RIGHT KNEE REPLACEMENT [V43.65] [Z96.659] INVALID FOR*12/31/2016 LT KNEE, INFEC/INFLAM-MEDICAL LOGISTICS SPECIALIST JOINT DEV [996.66]*INVALID FOR*02/21/2015 SUMMARY [V999.95] INVALID FOR* More... Abnormal Stress Test [R94.39] INVALID FOR* Priority: A More... Hypertension [I10] INVALID FOR* Priority: C More... Femoral DVT (deep venous thrombosis) (HCC) [I82*INVALID FOR*02/21/2015 More... 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 Rheumatoid arthritis involving multiple sites (*INVALID FOR* Chronic anticoagulation [Z79.01] INVALID FOR* C. difficile enteritis [A04.72] INVALID FOR*04/01/2017 USP prescription opiate use [Z79.891] INVALID FOR* Other instructions from your clinician: The following instructions are important for you related to your office visit today with the [facility]. The patient will be admitted on Friday for bowel preparation and preprocedure laboratory studies and plan for upper and lower endoscopy on Friday If you note any additional difficulties, questions, or concerns, you should contact our office immediately @ [phone] and ask to be transferred to the General Surgery department. Visit Notes: >> Ashlyn Centeno LPN [facility] Jan 22, 2018 2:52 PM Status: Signed REVIEW OF SYSTEMS: General: The patient NOTES fatigue, denies weight loss, denies weight gain, denies feeling hot, and denies feelings of cold. Eyes: The patient denies glaucoma, NOTES eye injury/surgery, wears glasses or contacts. Ear/Nose/Throat: The patient denies allergies, denies hayfever, denies ear infections, and denies bloody noses. Cardiovascular: The patient denies chest pain, denies heart disease, NOTES high blood pressure,denies cardiac stent, denies prior heart attack, NOTES irregular heart beat, NOTES high cholesterol, denies poor circulation, denies heart failure, other cardiac issues, denies claudication, denies cold feet, denies peripheral arterial stent. Respiratory: The patient denies tuberculosis, denies pneumonia, denies frequent cough, NOTES pulmonary embolism, denies shortness of breath, and denies coughing up blood. Gastrointestinal: The patient denies difficulty swallowing, NOTES acid reflux, denies ulcers, denies vomiting, denies jaundice/hepatitis, denies gallbladder problems, NOTES black or tarry stools, denies hemorrhoids, denies bleeding from rectum, denies diverticulitis, denies constipation, denies diarrhea, denies loss of stool control, and denies hernias. Kidney/Bladder: The patient denies kidney stones, denies urine infections, and denies bloody urine. Skin: The patient denies a history of skin cancer, denies bleeding/changing moles, and NOTES a history of skin rash. Neurologic: The patient denies a history of epilepsy/convulsions, denies headaches, denies head/spinal injuries, and denies stroke/TIA. Psychiatric: The patient denies psychiatric medications, denies depression, and denies voices, denies substance abuse. Endocrine: The patient NOTES thyroid disorders, denies diabetes, and denies hormonal problems. Hematologic: The patient NOTES a history of bruising, denies bleeding, and NOTES anemia, NOTES blood clots. Infections: The patient denies a history of measles and mumps, denies rheumatic fever, and denies sexually transmitted diseases. Musculoskeletal: The patient denies back pain/injury, NOTES back problems, denies sciatica, denies knee/foot trouble, NOTES arthritis, or denies gout. When was patient's last Mammogram screening? N/A Last Colonoscopy: none Ashlyn Centeno LPN Follow-up and Disposition History Recorded Encounter Status:Closed by BOBO ZHU MD on 01/23/18 EMERGENCY DEPARTMENT Observed: 01/15/2018 Status: F Source: [facility] SUMMARY 7:32 AM [facility] EMERGENCY DEPARTMENT SUMMARY NAME NUMBER SEX AGE ADMIT DISC TYPE MED.RECORD# [facility] DEMET[facility] A [id number] F 82 01/07/18 I/P [id number] ROOM:[id number] DATE OF :1935 PHYSICIAN NO.:[id number] PHYSICIAN NAME:Ludwin Kay M.D. PHYSICIAN:JARRED WILL III, MD HISTORY OF PRESENT ILLNESS: The patient came in. The patient had a syncopal episode while she was on the toilet urinating. She was not getting up. She does not recall what happened. Her found her sitting there and she does not recall what happened. She denied any chest pain. She denies any shortness of breath. She denies any nausea or vomiting. 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 She does not walk. PAST MEDICAL HISTORY: She has a history of hypertension. She has asthma. She has rheumatoid arthritis. PAST SURGICAL HISTORY: She has had gallbladder surgery, joint surgery. SOCIAL HISTORY: She does not smoke or drink. She is here with her family who appears very concerned about her. REVIEW OF SYSTEMS: Ten systems reviewed and negative except as mentioned above. PHYSICAL EXAMINATION: The patient was afebrile. Blood pressure 97/47, pulse 103, respirations , and pulse ox 97% on room air. Head is normocephalic and atraumatic. Eyes: Pupils are equal, round, and reactive to light. Extraocular muscles intact. Nares are patent. Throat has adequate oral moisture. Uvula is midline. Neck is supple without petechiae or rash. Heart without murmur. S1 equals S2. No S3 or S4 appreciated. Lungs are clear to auscultation bilaterally. No rales, rhonchi, or retractions. Abdomen is soft, nontender, and nondistended. Skin is warm and dry. DIAGNOSTIC DATA: The patient had a D-dimer, which was elevated. The patient had an EKG, which showed sinus tachycardia with PACs. Previous EKG was done on June 14, 2012, and there are changes. Her white count was 14,000, hemoglobin and hematocrit were 7.2 and 29, platelet count 629,000. D-dimer was 701. Troponin was negative. Magnesium was 1.9. BUN 30, creatinine 1.9. EMERGENCY DEPARTMENT COURSE AND TREATMENT/PLAN/DISPOSITION: The patient will be admitted to the hospital. I will also sign a blood bank consent. DIAGNOSIS: Syncope. D: Andrew Chan DO TD: 15:32 JOB #: [id number] Electronically signed by: JOSÉ MIGUEL Chan D.O. 01/11/18 19:31 Transcribed by: am 01/08/2018 14:09 EMERGENCY DEPARTMENT Observed: 01/15/2018 Status: F Source: [facility] SUMMARY 7:29 AM [facility] EMERGENCY DEPARTMENT SUMMARY NAME NUMBER SEX AGE ADMIT DISC TYPE MED.RECORD# [facility] A [id number] F 82 01/07/18 I/P [id number] ROOM:302MO DATE OF :1935 PHYSICIAN NO.:[id number] PHYSICIAN NAME:E.Sign Dr.Butros Eliza Linton PHYSICIAN:JARRED WILL III, MD ADDENDUM DIAGNOSTIC DATA: The patient had an INR of 2.5. We also did a CT of her chest, which was unremarkable. She is anemic. Her hemoglobin is 7.2. Hematocrit is 22. Her BUN is 30 and creatinine 0.9. EMERGENCY DEPARTMENT COURSE AND TREATMENT: She has bloody stools occasionally. I did a rectal examination, and interestingly it was negative for blood. I did have her sign a blood consent form because I believe her syncope may be from anemia. DIAGNOSES: 1. Syncope. 2. Anemia with INR of 2.5. PLAN/DISPOSITION: She will be admitted to the hospital. D: Adnrew Chan DO TD: 16:12 JOB #: [id number] Electronically signed by: JOSÉ MIGUEL Chan D.O. 01/11/18 19:31 Transcribed by: ly 01/08/2018 14:39 PROGRESS Observed: 01/12/2018 Status: COMPLETED Source: [place] 8:58 AM [facility] REPOSITORY HNO ID: [id number] Author: Kelsie Thompson MA Service: (none) Author Type: Supervisor Lump Room Type: Progress Notes Filed: 01/12/2018 9:06 AM Note Text: The patient is here for an injection of Vitamin B12 (Cyanocobalamin). Dose: 1mL Amount wasted: none. Route: Intramuscular Site: left deltoid Dramatic Coach: [employer] Lot #: [id number] Expiration Date: 06/16/2019 The date due for the next injection is 01/13/2018 Patient tolerated injection well. Kelsie Thompson CMA PROGRESS Observed: 01/12/2018 Status: COMPLETED Source: [place] 8:13 AM [facility] REPOSITORY HNO ID: [id number] Author: Suman Stern III Service: (none) Author Type: Physician Type: Progress Notes Filed: 01/12/2018 9:06 AM Note Text: SUBJECTIVE: This is a 82 year old female that is here today for Hospital Discharge Follow up. 01/07-01/09/18 [facility]/ Syncope while on commode. Hypotension. Fe def anemia: Hb 7.2 after 3 units PRBCs Hb 9.9 on 01/09. Also dx of vit B12 deficiency. to receive vit B12 1000 units IM qday x 3 days; then q wk x 4 wks; then 1/mo. Now denies abd pain, lightheadedness. She has generalized itching with lots of scratching on arms and legs. No chest pain, dyspnea, abd pain. Appetite normal. Black stool from iron. On iron supplementation since February,. Recently the patient was found to have persistent anemia and her iron supplement was increased to 325 mg twice per day. The patient denies abdominal pain, NSAID use, hematemesis. She does have a history of chronic rheumatoid arthritis. She was placed on Protonix 40 mg daily at the hospital. 2. The 2 daughters accompany the patient indicates that she was also on a phototypesetting equipment monitor with an irregular pulse. No other records provided today indicate a cardiac diagnosis. 3. Patient has had a history of DVT in 2011 and again 2014 and has been on chronic anticoagulation since. She gets weekly INR values at home. The values have all been very consistent between 2.0 and 2.4. 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 TTE 06/16 showed normal EF, 50-55%. 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 10/08/2010 - USP prescription opiate use 12/08/2017 - Osteoarthritis of hip - Osteoporosis, unspecified Osteoporosis - Other specified anemias - Peripheral vascular disease (HCC) - Pulmonary embolus (HCC) 07/04/2010 - Rheumatoid arthritis involving multiple sites (HCC) 10/10/2015 - Rheumatoid arthritis(714.0) - Unspecified hemorrhoids without mention of complication Hemorrhoids Current Outpatient Prescriptions on File Prior to Visit: mometasone (ELOCON) 0.1 % cream Apply 1 application to affected area once daily. simvastatin (ZOCOR) 20 mg tablet Take 1 tablet by mouth daily at bedtime. HYDROcodone-acetaminophen (NORCO) 5-325 mg per tablet Take 1 tablet by mouth every 6 hours as needed for Pain for up to 60 days.Earliest Fill Date: 12/08/17 warfarin (COUMADIN) 1 mg tablet Coumadin 0.5mg daily lisinopril (ZESTRIL, PRINIVIL) 40 mg tablet Take 1 tablet by mouth every morning. Levothyroxine 75 mcg cap Take 75 mcg by mouth once daily. amLODIPine (NORVASC) 5 mg tablet Take 1 tablet by mouth once daily. FLUoxetine (PROZAC) 20 mg capsule Take 1 capsule by mouth once daily. polyethylene glycol 3350 (MIRALAX) 17 gram/dose powder 17 gram/8 oz water by mouth daily albuterol HFA 90 mcg/actuation inhaler Inhale 2 Puffs as instructed every 4 hours as needed. FOR WHEEZING AND SHORTNESS OF BREATH. No current facility-administered medications on file prior to visit. FAMILY HISTORY Problem Relation Age of Onset - Cancer Sister SKIN - Cancer Brother SKIN - Hearing Loss Mother - Diabetes Brother - Diabetes Sister - Heart Father - Stroke Father - Stroke Brother - ASHD [Other] [OTHER] Brother - Heart Other 2 nephews from heart disease - ASHD [Other] [OTHER] Brother CABG 4 Social History Substance Use Topics - Smoking status: Never Smoker - Smokeless tobacco: Never Used - Alcohol use No BP 133/82 Pulse 73 Resp 16 Wt 60.8 kg (134 lb) BMI 22.99 kg/m2 OBJECTIVE: APPEARANCE Well appearing, alert, in no acute distress, well-hydrated, well nourished. NECK Supple, no adenopathy; thyroid symmetric, normal size, no bruits HEART irregularly irregular pulse with normal S1 and S2, no murmurs, no gallops, no JVD appreciated LUNG clear to auscultation ABDOMEN bowel sounds normoactive, no bruits, soft, non-tender, non-distended, without organomegaly or palpable masses, no tenderness to palpation EXTREMITIES status post left [id number] amputation. Grade 2/4 nonpitting edema of the right lower extremity. No tenderness of calf or thighs SKIN multiple excoriations on the arms and right leg. The patient was sitting in a scooter and I was unable to visualize the perirectal area ASSESSMENT: Anemia requiring 3 units packed red blood cells?uncertain etiology Iron deficiency and vitamin B-12 deficiency Suspect atrial fibrillation History recurrent DVT Long-term anticoagulation Rheumatoid arthritis?stable History of GERD?asymptomatic PLAN: ferrous sulfate 325mg twice/day vitamin B12 1000 units IM today, 02/10, and 02/11; then weekly x 1 mo; then monthly same other medications refer to surgery for evaluation of anemia RTO 1 mo and recheck CBC, iron/tibc, ferritin Home nursing care to address her excoriations. We discussed that she might need to be treated the wound care center Suman Stern III MD DISCHARGE SUMMARY Observed: 01/11/2018 Status: F [facility] DISCHARGE SUMMARY NAME NUMBER SEX AGE ADMIT DISC TYPE MED.RECORD# AWILDA Beltran [id number] F 82 01/08/18 01/09/18 I/P [id number] ROOM:302MO DATE OF :1935 PHYSICIAN NO.:[id number] PHYSICIAN NAME:Ludwin Kay M.D. PHYSICIAN:JARRED WILL III, MD FINAL DIAGNOSIS: 1. Severe anemia including iron deficiency and B12 deficiency anemia. 2. Status post transfusion of 3 units of packed red blood cells. 3. Decubitus ulcers. 4. Mild dehydration. PHYSICAL EXAMINATION: Earlier today I saw the patient. She was feeling fairly well. She has more energy, although she continues to be somewhat weak. She denies any chest pain. No shortness of breath. Blood pressure 116/55, heart rate 77, respiratory rate 16, temperature 98.1, oxygen saturation 94% on room air. Skin is warm and dry. Neck is supple with no nodes, no masses, no JVD. Lungs were symmetrical with equal lung expansion and clear to auscultation. Respiratory effort is normal. Heart regular rate and rhythm. Abdomen is soft and nontender. Right lower extremity with no edema. Neurologically, the patient was alert and oriented x3. DIAGNOSTIC DATA: On the day of discharge, WBCs 8, hemoglobin 9.9, hematocrit 29.4, platelets 491,000. Sodium 138, potassium 4.3. BUN 14, creatinine 0.5. Glucose 87. Other significant laboratory data this hospital stay: Admission WBCs 14, hemoglobin 7.2, hematocrit 22.9, MCV 67, MCH 21, INR 2.5, total iron less than 10, TIBC 202, ferritin 53, B12 level 151, iron saturation 5%, folate level 16.7. TSH is 1.23, magnesium 1.9. Troponin is negative. Initial BUN was 30 with creatinine of 0.9. Urinalysis positive for blood leukocytes, 16 to 25 WBCs and +3 bacteria. Urine culture was positive for more than 100,000 colonies gram-negative rods. Final culture is pending. Studies obtained this hospital stay: (1) Chest x-ray showed no acute disease. (2) CT scan of the chest showed no evidence of pulmonary embolism. No evidence of acute pulmonary abnormalities. Moderate hiatal hernia is present. (3) Echocardiogram shows normal left ventricular size and systolic function with ejection fraction of 60%. No hemodynamically significant valvular abnormalities noted. (4) Carotid Doppler ultrasound shows right carotid intimal thickening. Mild irregular mixed plaque in the left ICA. Doppler signal is normal bilaterally consistent with stenosis of 50 to 69% range. HOSPITAL COURSE: (1) Syncopal episode. Likely secondary to severe anemia. (2) Severe anemia with a combination of iron deficiency and B12 deficiency. The patient received 3 units of packed RBCs that raised the hemoglobin to 9.9. Also the patient was continued on iron supplementation and she was started on vitamin B12 injections. She received 1000 mcg subcutaneous for 2 days here in the hospital and she is to continue for 3 more days as an outpatient followed by every week for 4 weeks then monthly after that. I also discussed with the patient the importance of doing upper and lower endoscopies to rule out a source of bleeding, especially that she is on anticoagulation therapy. She also was advised to consider seeing a redevelopment manager especially for the B12 deficiency anemia. She preferred to discuss this issue with her primary care physician Dr. Suman Stern first and she will let him arrange for any needed and necessary followup. (3) Mild dehydration. The patient received intravenous hydration and she was advised to discontinue hydrochlorothiazide at least temporarily. (4) Abnormal urinalysis. The patient is asymptomatic from the urine point of view. She was not given any antibiotics and the preliminary culture results received after the patient left the hospital. I will leave the decision to treat to the patient's primary care physician as she was given an appointment for outpatient followup this coming Friday. Hopefully, we will have the final culture results by then. (5) Decubitus pressure ulcers. I had a long discussion with the patient and two daughter regarding the different ways to avoid the decubitus ulcers including consideration for therapy. (6) History for recurrent DVT. While in the hospital, Coumadin was not given to the patient. It was restarted upon discharge. I advised the patient to check her hemoglobin as an outpatient over the next few days to ensure the stability of the hemoglobin and consider complete discontinuation of the Coumadin later on. (7) The above was discussed with the patient and two daughters at the bedside in great detail. All questions were answered and they expressed understanding of the plan of care. I also discussed the case with Dr. Gutiérrez and with nursing staff. MEDICATIONS ON DISCHARGE: (1) Vitamin B12 injections 1000 mcg daily for 3 more days then weekly for 4 weeks, then monthly after that. (2) Pantoprazole 40 mg daily. (3) Discontinue hydrochlorothiazide. (4) Continue the rest of the medications as before admission including levothyroxine, lisinopril, amlodipine, Coumadin, simvastatin, ferrous sulfate, hydrocodone bitartrate/acetaminophen. DISCHARGE INSTRUCTIONS/PLAN/DISPOSITION: Destination home. Activity, no restrictions. Diet, regular, high fiber. Follow up with Dr. Stern on January 12 at 8:00 a.m. Return to the emergency room if temperature is greater than 100.4. Total time spent discharging this patient was about 35 minutes. D: David Kay MD TD: 15:58 JOB #: [id number] Electronically signed by: Ludwin Kay M.D. 01/11/18 13:10 Transcribed by: rosalino 01/10/2018 21:39 CBC Collected: 01/09/2018 Status: F Source: [facility] 5:39 AM [facility] REPOSITORY TYPE CODE TESTS RESULT OUT OF RANGE REFERENCE UNITS LAB CBC(LOINC) CBC Result Comment: CBC-COMPLETE BLOOD COUNT LAB WBC(LOINC) 4.5 - 10.8 x 10EE3/UL WBC 8.0 LAB RBC(LOINC) 4.10 - x 10EE6/UL 5.30 RBC Low 3.68 LAB HEMOGLOBIN(LOINC 12.0 - g/dl ) 16.0 Low HEMOGLOBIN 9.9 LAB HEMATOCRIT(LOINC 34.0 - % ) 46.0 Low HEMATOCRIT 29.4 LAB MCV(LOINC) 80 - 99 fl MCV 80 LAB MCH(LOINC) 27 - 33 pg MCH 27 LAB MCHC(LOINC) 32 - 36 X10 3 MCHC 34 LAB RDW/CV(LOINC) 12.0 - % 15.6 RDW/CV High 23.4 LAB PLATELET(LOINC) 150 - 450 x10EE3/UL PLATELET High 491 LAB MPV(LOINC) 6.6 - 10.5 fl MPV 7.3 Result Comment: AUTOMATED DIFFERENTIAL LAB NEUT %(LOINC) 46.0 - 76.0 % NEUT % 60.4 LAB LYMPH %(LOINC) 20.0 - 45.0 % LYMPH % 26.6 LAB MONOS %(LOINC) 0.0 - 10.0 % MONOS % 7.1 LAB EO %(LOINC) 0.0 - 7.0 % EO % 5.2 LAB BASO %(LOINC) 0.0 - 2.0 % BASO % 0.7 LAB Lymph #(LOINC) 0.80 - 2.80 x10EE3/U L Lymph # 2.10 LAB Neut #(LOINC) 1.50 - 7.10 x10EE3/U L Neut # 4.80 LAB Graves #(LOINC) 0.20 - 1.00 x10EE3/U L Graves # 0.60 LAB EO #(LOINC) 0.00 - 0.50 x10EE3/U L EO # 0.40 LAB Baso #(LOINC) 0.00 - 0.10 x10EE3/U L Baso # 0.10 LAB MANUAL DIFF(LOINC) MANUAL DIFF N/A LAB MORPHOLOGY(LOINC ) MORPHOLOGY N/A Result Comment: {CD] Performed By: #### [id number] #### [facility],[address] [place] [address] BMP WITH EGFR Collected: 01/09/2018 Status: F Source: [facility] 5:39 AM [facility] REPOSITORY TYPE CODE TESTS RESULT OUT OF RANGE REFERENCE UNITS LAB BMP with eGFR(LOINC) BMP with eGFR Result Comment: BASIC METABOLIC PANEL LAB SODIUM(LOINC) 136 - 145 mmol/l SODIUM 138 LAB POTASSIUM(LOINC) 3.5 - 5.1 mmol/L POTASSIUM 4.3 LAB CHLORIDE(LOINC) 98 - 107 mmol/L CHLORIDE High 111 LAB CO2(LOINC) 21.0 - mmol/L 31.0 CO2 21.4 LAB GLUCOSE(LOINC) 74 - 106 mg/dl GLUCOSE 87 LAB BUN(LOINC) 6 - 20 mg/dl BUN 14 LAB CREATININE(LOINC) 0.6 - 1.2 mg/dl Low CREATININE 0.5 LAB CALCIUM(LOINC) 8.6 - mg/dl 10.2 CALCIUM Low 7.7 LAB ANION GAP(LOINC) 10 - 20 mmol/L ANION GAP 10 LAB AGE(LOINC) years AGE 82 LAB eGFR(LOINC) 60 - 999 ML/MINUTE eGFR >60 LAB eGFR(AA)(LOINC) 60 - 999 ML/MINUTE eGFR(AA) >60 Result Comment: ACCORDING TO THE NATIONAL KIDNEY DISEASE EDUCATION PROGRAM(NKDE), A NORMAL eGFR IS A VALUE GREATER THAN OR EQUAL TO 60 ML/MIN/1.73 SQ METERS. CHRONIC KIDNEY DISEASE: <60mL/MIN/1.73 SQ METERS KIDNEY FAILURE: <15mL/MIN/1.73 SQ METERS THIS TEST SHOULD ONLY BE USED FOR PATIENTS 18 YEARS OF AGE AND OLDER. Performed By: #### [id number] #### [facility],[address] [address] HISTORY AND PHYSICAL Observed: 01/08/2018 Status: F Source: [facility] 9:44 PM [facility] HISTORY AND PHYSICAL EXAMINATION NAME NUMBER SEX AGE ADMIT DISC TYPE MED.RECORD# K[facility]ISER DEMETRIO A [id number] F 82 01/07/18 I/P [id number] ROOM:302MO DATE OF :1935 PHYSICIAN NO.:[id number] PHYSICIAN NAME:Ludwin Kay M.D. PHYSICIAN:JARRED WILL III, MD CHIEF COMPLAINT: Unresponsive episode. HISTORY OF PRESENT ILLNESS: This is an 82-year-old female with a past medical history significant for rheumatoid arthritis, DVTs in the past, hypertension. She states that she was doing well at home. She does not ambulate. She uses an electric wheel chair and a lift chair. Her helps her. She was on the commode. She had been on there for a while. Her came to check on her and he says that she was unresponsive. Initially, she did not hear him talking to her and when she awoke he was on the phone with the squad. When the squad arrived she was awake and alert and she was taken to the emergency room. I do not have the dictation to review. She states that she was not dizzy prior to. No chest pain. No shortness of breath. She has not seen blood in her stool she does take iron on a daily basis. In the emergency room, her white count was elevated to 14,000 with a left shift. Hemoglobin 7.2, hematocrit 22.9. She is on chronic anticoagulation with Coumadin and INR was 2.5. BUN 30, creatinine 0.9. Urinalysis was abnormal. Initial occult blood was negative and the second specimen was positive. Iron studies were evaluated due to significant anemia and iron saturation is 5% with a low vitamin B12 of 151. Upon evaluation this morning, the patient does feel somewhat better. She had two units of packed red blood cells. She states that she takes iron and was told it was low in the past. She has not seen any active bleeding. PAST MEDICAL HISTORY: (1) Severe rheumatoid arthritis. She was on medications for this many years ago. Now, she just takes Tylenol. (2) DVTs in the past. She states that she had two, one in each leg at the same time, many years ago. It was not postoperative. (3) Hypertension. 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 (5) Cardiac catheterization in the past. No details available. (6) Iron deficiency anemia. She states that she had a colonoscopy in the past. It was not recent. She is not sure when it was. (7) Hypothyroidism on treatment. PAST SURGICAL HISTORY: (1) Left AKA as above. (2) Left total knee replacement. (3) Cholecystectomy. MEDICATIONS: Current medications at home: (1) Ferrous sulfate 325 mg daily. (2) Hydrocodone/acetaminophen 5/325 one tablet q6h p.r.n. (3) Levothyroxine 75 mcg daily. (4) Lisinopril 40 mg daily. (5) Simvastatin 20 mg daily. (6) Warfarin 1 mg three days a week, alternating with 0.5 mg 4 days a week. (7) Amlodipine 5 mg daily. (8) Hydrochlorothiazide 12.5 mg daily. ALLERGIES: Augmentin, Celebrex and Lodine. FAMILY HISTORY: She had multiple siblings with coronary artery disease. She has a brother that of pancreatic cancer in his 60s. She had multiple siblings with diabetes. SOCIAL HISTORY: The patient is and lives at home with her spouse. She has one biological daughter and 3 step-daughters which she raised. She does not smoke nor drink alcohol. REVIEW OF SYSTEMS: She denies feeling dizzy, lightheaded. No recent respiratory infections, fevers or chills. No chest pain. No shortness of breath. She states that she does not ambulate. She uses a lift chair and an electric wheelchair. She has not been able to walk since her surgery many years ago. She denies any abdominal pain. No nausea or vomiting. She has not seen any blood in her stool. No urinary symptoms. Other than finding her unresponsive, she had no symptoms prior to. PHYSICAL EXAMINATION GENERAL APPEARANCE: The patient is lying in bed in no apparent distress. She is alert, pleasant and cooperative. VITAL SIGNS: Initial blood pressure was 97/47 with a heart rate of 103. This morning, blood pressure improved at 111/59. Heart rate 83. Respirations 12. Temperature is 97.9. Oxygen saturation 95% on room air. Weight 120 pounds with BMI of 17.22. SKIN: Warm and dry. She does have decubitus pressure areas on her buttocks, one in the midline on the left side and two superficial areas on the right side. She also has multiple scabbed areas on her extremities. HEENT: Unremarkable. NECK: Supple. No JVD. LUNGS: Normal respiratory effort. Equal lung expansion. Clear to auscultation bilaterally. HEART: Regular rate and rhythm with no murmurs or gallops appreciated. ABDOMEN: Positive bowel sounds, soft and nontender. EXTREMITIES: Left AKA. Right lower extremity revealed no edema, cyanosis or clubbing. NEUROLOGIC: She is alert and oriented. Mood, affect and memory are within normal limits. Speech is clear. She answers questions appropriately. DIAGNOSTIC DATA: On admission, white count 14.0. Hemoglobin 7.2, hematocrit 22.9. MCV 67. MCH 21. This morning, hemoglobin was 8.9, hematocrit 26.9. INR is 25. Iron below 10. TIBC 202. Ferritin 53. Vitamin B12 151. Iron saturation 5%. Troponin negative. TSH 1.23. CMP on admission revealed CO2 20.5. BUN 30, creatinine 0.9. Glucose 143 nonfasting. Repeated this morning, glucose was 83. Albumin 2.9 on admission. Urinalysis shows 16-25 WBCs, positive nitrite, 20-25 RBCs. Initial stool was negative for occult blood. The second one was positive. IMPRESSION/PLAN: 1. Syncopal episode, may be multifactorial. She is anemia. She has probable urine infection and had dehydration on admission. She was admitted to the hospital. We will order echocardiogram to assess LV function and valvular abnormalities. Carotid ultrasound to rule out carotid stenosis. She will receive treatment for anemia and will culture the urine. 2. Anemia with iron deficiency as well as B12 deficiency and positive stool. She was type and cross matched and transfused two units of packed red blood cells. Hemoglobin has improved to 8.9. We will transfuse one unit. We will also hold her Coumadin. For now she is on IV fluids and proton pump inhibitor. We will order B12 1000 mcg subcutaneous for 5 days and we will recommend weekly and then monthly. We will ask Dr. Gutiérrez to be on consultation to evaluate the anemia, possible GI bleed and decubitus wounds. 3. B12 deficiency anemia. We will replace B12 and hemoglobin and hematocrit will need monitored. She will need Hematology followup as an outpatient. This was discussed with her in detail. 4. Dehydration, improving with IV fluid resuscitation. 5. Abnormal urinalysis. She was asymptomatic. We will obtain a urine culture. She has significant white blood cells and positive nitrite. 6. Decubitus pressure ulcers. Wound care protocol as well as general surgeon evaluation. 7. History of DVT. From her history she states that she had them both at once, and she did not have any recurrence. She has been on chronic anticoagulation with Coumadin for many years. We will hold right now due to GI bleed and anemia. 8. Hypoalbuminemia with low body weight , complicating factor. 9. Chronic medical conditions. All other chronic medical conditions appear stable at present. Above was discussed with the patient. All questions were answered and the patient verbalized understanding of the plan. Dictated by harman Vee for David Kay M.D. I personally evaluated and examined the patient and agree with above note that reflects my visit to the patient and my decision making. David Kay MD TD: 11:18 JOB #: [id number] Electronically signed by: Ludwin Kay M.D. 01/08/18 21:44 Transcribed by: lui sarmando 01/08/2018 16:05 Update to H&P: [ ] No changes: I have examined the patient and reviewed the H&P and there are no changes. [ ] As previously dictated with the following changes: PHYSICIAN SIGNATURE: TIME: DATE: HEMATOCRIT Collected: 01/08/2018 Status: F Source: [facility] 6:25 PM [facility] REPOSITORY TYPE CODE TESTS RESULT OUT OF REFERENCE UNITS RANGE LAB HEMATOCRIT 34.0 - 46.0 % (LOINC) Low HEMATOCRIT 30.8 Result Comment: {HH] Performed By: #### [id number] #### [facility],[address] [place] [address],[facility] [address] HEMOGLOBIN Collected: 01/08/2018 Status: F Source: [facility] 6:25 PM [facility] REPOSITORY TYPE CODE TESTS RESULT OUT OF REFERENCE UNITS RANGE LAB HEMOGLOBIN 12.0 - 16.0 g/dl (LOINC) Low HEMOGLOBIN 10.1 Result Comment: {HH] Performed By: #### [id number] #### [facility],[address] [place] [address] CV CAROTID STUDY Observed: 01/08/2018 Status: F Source: [facility] 7:56 AM [facility] REPOSITORY [place] [id number] Patient: DEMETRIO KAISER Phone#: : 1935 Age: 82 Gender: F Pt. Type: Out Account: [id number] Location: [facility] Ordering: DAVID KAY Exam Date: 01/08/2018/6:49 Family Phys: SUMAN STERN Charge Code: [id number] Physician: [place] Order #: [id number] DLP Dose#: PROCEDURE: CAROTID FLOW STUDY COMPARISON: None. INDICATIONS: Syncope TECHNIQUE: Color duplex Doppler ultrasound and pulsed Doppler analysis were performed to evaluate the cervical carotid arteries and vertebral flow. All measurements for carotid artery narrowing or stenosis were obtained using the ipsilateral distal internal carotid artery as the reference value. FIXED INCOME PORTFOLIO MANAGER: PADDY PT HISTORY: Syncope/drop attacks RIGHT IMAGING FINDINGS: CCA: Intimal wall thickening is present. ICA: Intimal wall thickening present. ECA: Intimal wall thickening is present. Vertebral A: Antegrade flow Comments: Category: II. Less than 50% stenosis. ICA PSV less [id number]. Plaque and/or intimal thickening present. LEFT IMAGING FINDINGS: CCA: Moderate heterogenous plaque is present. ICA: Mild heterogenous plaque without hemodynamically significant stenosis. ECA: Intimal wall thickening is present. Vertebral A: Antegrade flow. Comments: Category: II Less than 50% stenosis ICA PSV, less [id number]. Plaque and/or intimal thickening present. RIGHT VELOCITY RECORDINGS Prox CCA: 59.96 cm/s Prox CCA EDV: 8.74 cm/s Continued Report - Page 2 of 2 Patient: DEMETRIO KAISER Phone#: : 1935 Age: 82 Gender: F Pt. Type: Out Account: [id number] Location: 010 Ordering: DAVID KAY Exam Date: 01/08/2018/6:49 Family Phys: SUMAN STERN Charge Code: [id number] Physician: Midland Order #: [id number] DLP Dose#: Mid CCA: 61.20 cm/s Mid CCA EDV: 12.49 cm/s Distal CCA: 63.70 cm/s Distal CCA EDV: 11.24 cm/s ECA: 120.28 cm/s ECA EDV: 1.72 cm/s Prox ICA: 92.73 cm/s Prox ICA EDV: 22.32 cm/s Mid ICA: 111.62 cm/s Mid ICA EDV: 34.35 cm/s Distal ICA: 70.41 cm/s Distal ICA EDV: 24.04 cm/s Vertebral Artery: 41.22 cm/s Vertebral Artery EDV: 10.30 cm/s Subclavian Artery: 125.11 cm/s LEFT VELOCITY RECORDINGS Prox CCA: 73.12 cm/s Prox CCA EDV: 12.65 cm/s Mid CCA: 109.27 cm/s Mid CCA EDV: 15.30 cm/s Distal CCA: 102.72 cm/s Distal CCA EDV: 13.11 cm/s ECA: 106.53 cm/s ECA EDV: 1.72 cm/s Prox ICA: 70.41 cm/s Prox ICA EDV: 13.74 cm/s Mid ICA: 101.32 cm/s Mid ICA EDV: 29.19 cm/s Distal ICA: 77.28 cm/s Distal ICA EDV: 22.32 cm/s Vertebral Artery: 26.24 cm/s Vertebral Artery EDV: 8.43 cm/s Subclavian Artery: 188.08 cm/s CONCLUSION: 1. Right carotid intimal thickening. 2. Mild irregular mixed plaque in the left ICA. 3. Doppler signal is normal bilaterally consistent with stenosis in the 50-69% range. Dictated by: Shanon Ventura MD on 01/08/2018 at 8:26 Approved by: Shanon Ventura MD on 01/08/2018 at 8:26 CV ECHO COMPLETE Observed: 01/08/2018 Status: F Source: [facility] 7:55 AM [place] [id number] Patient: DEMETRIO KAISER Phone#: : 1935 Age: 82 Gender: F Pt. Type: Out Account: [id number] Location: 010 Ordering: DAVID KAY Exam Date: 01/08/2018/7:06 Family Phys: SUMAN STERN Charge Code: [id number] Physician: Midland Order #: [id number] DLP Dose#: PROCEDURE: ECHOCARDIOGRAM WITH DOPPLER AND COLOR FLOW HISTORY: CAD, hypertension. INDICATIONS: Syncope TECHNIQUE: A 2-D ultrasound, color spectral Doppler and M-mode evaluation of the heart and great vessels. PATIENT MEASUREMENTS: Height (in.): 70 BSA: 1.7 Weight (lbs.): 120 BP: 104/51 Slate Roofer Helper: AR M MODE 2D MEASUREMENTS AND CALCULATIONS: LVIDd: 4.65 cm LVIDs: 2.91 cm IVSd: 1.08 cm LVPWd: 1.23 cm LVOT diam: 2.1 FS: 37.36 % Ao Root diam: 2.92 cm LA diam: 5.05 cm LA A4 Area: 23.10 cm2 RVDd: 2.98 cm TAPSE: 2.0 DOPPLER MEASUREMENTS AND CALCULATIONS MITRAL MV E MAX sammy: 129.23 cm/s MV A MAX sammy: 122.44 cm/s MV E-A ratio: 1.06 Lat Peak E' Sammy 8 Septal Peak E' SAMMY 8 AORTIC Continued Report - Page 2 of 3 Patient: DEMETRIO KAISER Phone#: : 1935 Age: 82 Gender: F Pt. Type: Out Account: [id number] Location: 010 Ordering: DAVID KAY Exam Date: 01/08/2018/7:06 Family Phys: SUMAN STERN Charge Code: [id number] Physician: Midland Order #: [id number] DLP Dose#: Ao V2 max: 171.62 cm/s Ao max P.78 mm[Hg] LV V1 Max 76.32 cm/s LV V1 Max PG 2.33 mm[Hg] PULMONIC PA V2 Max 97.94 cm/s PA Max PG 3.84 mm[Hg] TRICUSPID TR Max Sammy 257.18 cm/s TR max PG 26.48 mm[Hg] RVSP 2D/M-MODE AND COLOR FLOW LEFT VENTRICLE: Normal LV size and systolic function, stage II diastolic dysfunction LVEF is 55 to 60%. WALL MOTION: 1 - Basal anterior: Normal. 7 - Mid anterior: Normal. 13 - Apical anterior: Normal. 2 - Basal anteroseptal: Normal. 8 - Mid anteroseptal: Normal. 14 - Apical septal: Normal. 3 - Basal inferoseptal: Normal. 9 - Mid inferoseptal: Normal. 15 - Apical inferior: Normal. 4 - Basal inferior: Normal. 10-Mid inferior: Normal. 16 - Apical lateral: Normal. 5 - Basal inferolateral: Normal. 11-Mid inferolateral: Normal. 6 - Basal anterolateral: Normal. 12-Mid anterolateral: Normal. RIGHT VENTRICLE: Normal RV size and systolic function. LEFT ATRIUM: Significantly dilated. RIGHT ATRIUM: Dilated. ATRIAL SEPTUM: Within normal limits. MITRAL VALVE: Bileaflet, minimally thickened and calcified with trivial mitral regurgitation. TRICUSPID VALVE: Structurally normal, mildly normal PA pressure. AORTIC VALVE: Trileaflet thickened calcified no obvious stenosis or regurgitant lesions, sclerosis noted. PULMONIC VALVE: Not well visualized no obvious stenosis or regurgitant lesions. AORTIC ROOT: Within normal limits. PERICARDIUM: Within normal limits no obvious effusion noted. PLEURA: No obvious pleural effusion noted. CONCLUSION: Normal LV size and systolic function, LV EF is 60%. No hemodynamically significant valvular abnormalities noted. Dictated by: Leroy Troncoso on 01/08/2018 at 10:10 Continued Report - Page 3 of 3 Patient: DEMETRIO KAISER Phone#: : 1935 Age: 82 Gender: F Pt. Type: Out Account: [id number] Location: [facility] Ordering: DAVID KAY Exam Date: 01/08/2018/7:06 Family Phys: SUMAN STERN Charge Code: [id number] Physician: [place] Order #: [id number] DLP Dose#: Approved by: Leroy Troncoso on 01/08/2018 at 10:10 BMP WITH EGFR Collected: 01/08/2018 Status: F Source: [facility] 5:27 AM [facility] REPOSITORY TYPE CODE TESTS RESULT OUT OF RANGE REFERENCE UNITS LAB BMP with eGFR(LOINC) BMP with eGFR Result Comment: BASIC METABOLIC PANEL LAB SODIUM(LOINC) 136 - 145 mmol/l SODIUM 139 LAB POTASSIUM(LOINC) 3.5 - 5.1 mmol/L POTASSIUM 4.0 LAB CHLORIDE(LOINC) 98 - 107 mmol/L CHLORIDE High 112 LAB CO2(LOINC) 21.0 - mmol/L 31.0 CO2 Low 20.3 LAB GLUCOSE(LOINC) 74 - 106 mg/dl GLUCOSE 81 LAB BUN(LOINC) 6 - 20 mg/dl BUN 20 LAB CREATININE(LOINC) 0.6 - 1.2 mg/dl CREATININE 0.6 LAB CALCIUM(LOINC) 8.6 - mg/dl 10.2 CALCIUM Low 7.8 LAB ANION GAP(LOINC) 10 - 20 mmol/L ANION GAP 11 LAB AGE(LOINC) years AGE 82 LAB eGFR(LOINC) 60 - 999 ML/MINUTE eGFR >60 LAB eGFR(AA)(LOINC) 60 - 999 ML/MINUTE eGFR(AA) >60 Result Comment: ACCORDING TO THE NATIONAL KIDNEY DISEASE EDUCATION PROGRAM(NKDE), A NORMAL eGFR IS A VALUE GREATER THAN OR EQUAL TO 60 ML/MIN/1.73 SQ METERS. CHRONIC KIDNEY DISEASE: <60mL/MIN/1.73 SQ METERS KIDNEY FAILURE: <15mL/MIN/1.73 SQ METERS THIS TEST SHOULD ONLY BE USED FOR PATIENTS 18 YEARS OF AGE AND OLDER. Performed By: #### [id number] #### [facility],[address] [place] [address] URINALYSIS Collected: 01/08/2018 Status: F Source: [facility] 5:27 AM [facility] REPOSITORY TYPE CODE TESTS RESULT OUT OF REFERENCE UNITS RANGE LAB URINALYSIS (LOINC) URINALYSIS Result Comment: URINALYSIS LAB Specimen Type(LOINC) Specimen Type R LAB Color(LOINC) NORMAL: YELLOW Color p.yel LAB Clarity(LOINC) NORMAL: CLEAR Clarity Abnormal SL. CLOUDY LAB ph(LOINC) NORMAL: 5.0-8.0 ph 6 LAB Protein(LOINC) NORMAL: NEGATIVE Protein Abnormal 15 LAB Glucose(LOINC) NORMAL: NORMAL Glucose NORM LAB Ketone(LOINC) NORMAL: NEGATIVE Ketone NEG LAB Bilirubin(LOINC) NORMAL: NEGATIVE Bilirubin NEG LAB Blood(LOINC) NORMAL: NEGATIVE Blood Abnormal 250 LAB Urobilinog(LOINC) NORMAL: NORMAL Urobilinog NORM LAB Sp [place](LOINC) NORMAL: 1.010-1.030 Sp [place] 1.015 LAB Nitrite(LOINC) NORMAL: NEGATIVE Nitrite POS LAB Leukocytes(LOINC) NORMAL: NEGATIVE Leukocytes Abnormal 500 LAB Microscopic(LOINC ) Microscopic SEE BELOW Result Comment: MICROSCOPIC LAB Wbc(LOINC) 0-5/hpf Wbc 16-25 LAB Rbc(LOINC) 0-3/hpf Rbc 20-25 LAB Casts(LOINC) Casts NONE LAB Crystals(LOINC) Crystals NONE LAB Amorphous(LOINC) Amorphous NONE LAB Bacteria(LOINC) Bacteria 3+ LAB Epi Cells(LOINC) Epi Cells OCC LAB Mucous(LOINC) Mucous NONE LAB Yeast(LOINC) Yeast NONE Performed By: #### [id number] #### [facility],[address] [place] [address] CBC Collected: 01/08/2018 Status: F Source: [facility] 5:27 AM [facility] REPOSITORY TYPE CODE TESTS RESULT OUT OF RANGE REFERENCE UNITS LAB CBC(LOINC) CBC Result Comment: CBC-COMPLETE BLOOD COUNT LAB WBC(LOINC) 4.5 - 10.8 x 10EE3/UL WBC 8.0 LAB RBC(LOINC) 4.10 - x 10EE6/UL 5.30 RBC Low 3.69 LAB HEMOGLOBIN(LOINC 12.0 - g/dl ) 16.0 Low HEMOGLOBIN 8.9 LAB HEMATOCRIT(LOINC 34.0 - % ) 46.0 Low HEMATOCRIT 26.9 LAB MCV(LOINC) 80 - 99 fl MCV Low 73 LAB MCH(LOINC) 27 - 33 pg MCH Low 24 LAB MCHC(LOINC) 32 - 36 X10 3 MCHC 33 LAB RDW/CV(LOINC) 12.0 - % 15.6 RDW/CV High 24.0 LAB PLATELET(LOINC) 150 - 450 x10EE3/UL PLATELET High 519 LAB MPV(LOINC) 6.6 - 10.5 fl MPV 7.4 Result Comment: AUTOMATED DIFFERENTIAL LAB NEUT %(LOINC) 46.0 - 76.0 % NEUT % 59.0 LAB LYMPH %(LOINC) 20.0 - 45.0 % LYMPH % 27.5 LAB MONOS %(LOINC) 0.0 - 10.0 % MONOS % 7.7 LAB EO %(LOINC) 0.0 - 7.0 % EO % 4.7 LAB BASO %(LOINC) 0.0 - 2.0 % BASO % 1.1 LAB Lymph #(LOINC) 0.80 - 2.80 x10EE3/U L Lymph # 2.20 LAB Neut #(LOINC) 1.50 - 7.10 x10EE3/U L Neut # 4.70 LAB Graves #(LOINC) 0.20 - 1.00 x10EE3/U L Graves # 0.60 LAB EO #(LOINC) 0.00 - 0.50 x10EE3/U L EO # 0.40 LAB Baso #(LOINC) 0.00 - 0.10 x10EE3/U L Baso # 0.10 LAB MANUAL DIFF(LOINC) MANUAL DIFF REVIEWED LAB MORPHOLOGY(LOINC ) MORPHOLOGY REVIEWED Result Comment: {CD] Performed By: #### [id number] #### [facility],[address] [address] Observed: 01/08/2018 Status: F Source: [facility] CULTURE URINE 5:27 AM [facility] REPOSITORY CULTURE URINE _URINE CULTURE_ M I C R O B I O L O G Y R E P O R T FINAL Antimicrobial Susceptibility and Organism Identification Report Specimen Number : [id number] Requested : 01/08/18 Specimen Source : CLEAN CATCH URINE Collected : 01/08/18 05:27 Reece of Isolation : Med/Surg Received : 01/08/18 05:27 Requesting Physician : ELIZA Patient/Specimen Tests and Comments Specimen Comments FINAL REPORT: URINE COLONY COUNT: > THAN 100,000 CFU/CC GRAM NEGATIVE RODS Organisms Identified -------- * 01 Klebsiella pneumoniae 01/10/18 Comments >100,000 cfu Tech : Source : CLEAN CATCH URINE ID # : [id number] FINAL Report Date : / / : Collected : 01/08/18 05:27 Continued on Next Page M I Elmer R O B I O Titus O G Y R E P O R T FINAL Antimicrobial Susceptibility and Organism Identification Report Isolate 01 Klebsiella pneumoniae Klebsiella pneumoniae DRUG JOSE ALFREDO Sys. Urine --- ----- ----- Amp/Sulbactam <=8/4 S Ampicillin >16 R Aztreonam <=8 S Ceftriaxone <=8 S Ceftazidime <=1 S Cephalothin <=8 Ciprofloxacin <=1 S Cefuroxime <=4 S Ertapenem <=1 S Nitrofurantoin <=32 Gentamicin <=4 S Imipenem <=1 S Levofloxacin <=2 S Meropenem <=1 S Pip/Tazo <=16 S Piperacillin <=16 S Trimeth/Sulfa <=2/38 S Tetracycline <=4 S Tobramycin <=4 S +, ++, +++, or S = Susceptible N/R = Not Reported Jacek = Beta Lactamase Positive I = Intermediate CC = Cost Code TFG = Thymidine-dependent Strain R = Resistant JOSE ALFREDO = mcg/ml (mg/L) Blank = Data not available, or drug not advisable or tested For Blood and CSF Isolates, a Beta-Lactamase test is recommended for Enterococus species. IB appears in place of S, I (S), +, ++, or +++ with species known to possess inducible B-lactamases; potentially they may become resistant to all B-lactam drugs. Monitoring of patients during/after therapy is recommended. Avoid other/combined B-lactam drugs. (a) Use maximum doses of drug with an aminoglycoside for P. aeruginosa in patients with granulocytopenia or serious infections. (b) Breakpoints based on parenteral dose. For cefuroxime Axetil (PO) use <8=S, 8-16=I, >16=R. (c) For non-enterococcal streptococci, Micrococcus species, and Listeria species, refer to the Ampicillin interpretation. * Interpretations based on approx. adult attainable systemic/urine levels, except drugs with <3 dilutions, which print NCCLS. Doses are guidelines; consider weight and renal/hepatic function. Urine interpretation for lower UTI only. Interpretations based on NCCLS M7-A2. Ticar/K Clav'ate for gram positives based on racetrack steward's breakpoints. Tech : Source : CLEAN CATCH URINE ID # : [id number] FINAL Report Date : / / : Collected : 01/08/18 05:27 01/10/18.MDS. 01/09/18.JLN. 01/10/18.MDS.COMPLETE Performed By: #### [id number] #### [facility],[address] [place], [place] [id number] TROPONIN Collected: 01/08/2018 Status: F Source: [facility] 2:00 AM [facility] REPOSITORY TYPE CODE TESTS RESULT OUT OF REFERENCE UNITS RANGE LAB TROPONIN 0.00 - 0.05 ng/ml I(LOINC) TROPONIN I 0.01 Result Comment: Elevated troponin (above the 99th percentile) usually indicates myocardial ischemia. Results must be interpreted within the clinical setting. 1.Non-ischemic pathology can also cause elevated troponin levels (e.g., acute pulmonary embolism, myocarditis, pericarditis, heart failure, intracranial injury, rhabdomyolisis, sepsis, shock and renal insufficiency). 2.Approximately 1% of healthy adults have elevated troponin levels. 3.Analytical false positive results rarely occur(due to multiple interferences such as heterophile antibodies). Performed By: #### [id number] #### [place] [address] OCCULT BLOOD STOOL (3 Collected: 01/07/2018 Status: F Source: [facility] SPECIMENS) 7:52 PM [facility] REPOSITORY TYPE CODE TESTS RESULT OUT OF REFERENCE UNITS RANGE LAB OCCULT BLOOD [NEGATIVE STOOL(LOINC) OCCULT NOT BLOOD STOOL COLLEC Performed By: #### [id number] #### [place] [address] TROPONIN Collected: 01/07/2018 Status: F Source: [facility] 7:45 PM [facility] REPOSITORY TYPE CODE TESTS RESULT OUT OF REFERENCE UNITS RANGE LAB TROPONIN 0.00 - 0.05 ng/ml I(LOINC) TROPONIN I 0.01 Result Comment: Elevated troponin (above the 99th percentile) usually indicates myocardial ischemia. Results must be interpreted within the clinical setting. 1.Non-ischemic pathology can also cause elevated troponin levels (e.g., acute pulmonary embolism, myocarditis, pericarditis, heart failure, intracranial injury, rhabdomyolisis, sepsis, shock and renal insufficiency). 2.Approximately 1% of healthy adults have elevated troponin levels. 3.Analytical false positive results rarely occur(due to multiple interferences such as heterophile antibodies). Performed By: #### [id number] #### [facility],[address] [place], [place] [address] BB CROSSMATCH 1ST UNIT Collected: 01/07/2018 Status: F Source: [facility] 5:10 PM [facility] REPOSITORY TYPE CODE TESTS RESULT OUT OF REFERENCE UNITS RANGE LAB BB CROSSMATCH 1ST UNIT(LOINC) BB CROSSMATCH 1ST UNIT Result Comment: [id number] REQUEST FOR BLOOD OR BLOOD COMPONENT UNIT #_1 01/07/18.1917.DJB. LAB Component(LOINC) ___ Component [facility] LAB Pt's ABO/Rh(LOINC) Pt's ABO/Rh B POSITIVE LAB Donor's ABO/Rh(LOINC) Donor's ABO/Rh O POSITIVE LAB Donor's Unit No(LOINC) Donor's Unit No [id number] LAB N(LOINC) Unit Exp Date 3251124 LAB Compatibility(LOINC) Compatibility COMPATIBLE Result Comment: { Pt's BB ID # [id number] Transfusion comments I have confirmed the above required items at the time of unit issue: Issuing Tech ........................ Date/Time .................. PT ID VERIFIED AT BEDSIDE PRIOR TO BLOOD ADMINISTRATION PT ID VERIFIED AND DOCUMENTED BY TWO NURSES PT Name same on unit tag,BB ID Bracelet, and blood administration form Verify PT name by asking to state name(if poss.) Pt's MR Number on unit tag is the same as BB ID Bracelet and admin form Verify Pt's ABO Group/Rh from admin form, and unit tag Verify unit number from unit and blood administration form Informed consent obtained? I have checked the above listed items and there were no discrepancies #1 RN signature .................... Date/Time .................. #2 RN signature .................... Date/Time .................. RECORD OF PATIENT'S RESPONSE Date/Time Prior to transfusion ......... Start of transfusion ......... 15 minute check ......... Blood complete/DC ......... SITE: Central Vein Peripheral Vein Central Artery Peripheral Artery AMOUNT GIVEN (1/4, 1/2, 3/4 or full unit) WAS THERE A REACTION TO THE TRANSFUSION? Yes... No... If so, notify the physician and the lab immediately, and initiate a Blood Transfusion Reaction form. COMPLETE FORMS ENTIRELY. KEEP CARDBOARD COPY ATTACHED TO UNIT. PLACE WHITE COPY ON CHART. RETURN YELLOW COPY TO LAB RUPERT UPON COMPLETION OF TRANSFUSION. Performed By: #### [id number] #### [facility],[address] [place] [address] BB CROSSMATCH Collected: 01/07/2018 Status: F Source: [facility] ADDITIONAL UNIT 5:10 PM [facility] REPOSITORY TYPE CODE TESTS RESULT OUT OF REFERENCE UNITS RANGE LAB BB CROSSMATCH ADDITIONAL UNIT(LOINC) BB CROSSMATCH ADDITIONAL UNIT Result Comment: [id number] REQUEST FOR BLOOD OR BLOOD COMPONENT UNIT #_2 01/07/18.1923.DJB. LAB Component(LOINC) ___ Component [facility] LAB Pt's ABO/Rh(LOINC) Pt's ABO/Rh B POSITIVE LAB Donor's ABO/Rh(LOINC) Donor's ABO/Rh O POSITIVE LAB Donor's Unit No(LOINC) Donor's Unit No [id number] LAB N(LOINC) Unit Exp Date 3251124 LAB Compatibility(LOINC) Compatibility COMPATIBLE Result Comment: { Pt's BB ID # [id number] Transfusion comments I have confirmed the above required items at the time of unit issue: Issuing Tech ........................ Date/Time .................. PT ID VERIFIED AT BEDSIDE PRIOR TO BLOOD ADMINISTRATION PT ID VERIFIED AND DOCUMENTED BY TWO NURSES PT Name same on unit tag,BB ID Bracelet, and blood administration form Verify PT name by asking to state name(if poss.) Pt's MR Number on unit tag is the same as BB ID Bracelet and admin form Verify Pt's ABO Group/Rh from admin form, and unit tag Verify unit number from unit and blood administration form Informed consent obtained? I have checked the above listed items and there were no discrepancies #1 RN signature .................... Date/Time .................. #2 RN signature .................... Date/Time .................. RECORD OF PATIENT'S RESPONSE Date/Time Prior to transfusion ......... Start of transfusion ......... 15 minute check ......... Blood complete/DC ......... SITE: Central Vein Peripheral Vein Central Artery Peripheral Artery AMOUNT GIVEN (1/4, 1/2, 3/4 or full unit) WAS THERE A REACTION TO THE TRANSFUSION? Yes... No... If so, notify the physician and the lab immediately, and initiate a Blood Transfusion Reaction form. COMPLETE FORMS ENTIRELY. KEEP CARDBOARD COPY ATTACHED TO UNIT. PLACE WHITE COPY ON CHART. RETURN YELLOW COPY TO LAB RUPERT UPON COMPLETION OF TRANSFUSION. Performed By: #### [id number] #### [place] [address] BB TYPE & SCREEN Collected: 01/07/2018 Status: F Source: [facility] 5:10 PM [facility] REPOSITORY TYPE CODE TESTS RESULT OUT OF REFERENCE UNITS RANGE LAB BB TYPE & SCREEN(LOIN C) BB TYPE & SCREEN Result Comment: TYPE, Rh, AND SCREEN LAB ABO(LOINC) ABO B LAB Rh(LOINC) Rh POS LAB ANTIBODY SCR(LOINC) ANTIBODY negative SCR Performed By: #### [id number] #### [place] [address] BB CROSSMATCH Collected: 01/07/2018 Status: F Source: [facility] ADDITIONAL UNIT 5:10 PM [facility] REPOSITORY TYPE CODE TESTS RESULT OUT OF REFERENCE UNITS RANGE LAB BB CROSSMATCH ADDITIONAL UNIT(LOINC) BB CROSSMATCH ADDITIONAL UNIT Result Comment: [id number] REQUEST FOR BLOOD OR BLOOD COMPONENT UNIT #_3 01/08/18.1303.JLN. LAB Component(LOINC) ___ Component [facility] LAB Pt's ABO/Rh(LOINC) Pt's ABO/Rh B POSITIVE LAB Donor's ABO/Rh(LOINC) Donor's ABO/Rh O POSITIVE LAB Donor's Unit No(LOINC) Donor's Unit No [id number] LAB N(LOINC) Unit Exp Date 02/09/18 LAB Compatibility(LOINC) Compatibility COMPATIBLE Result Comment: { Pt's BB ID # [id number] Transfusion comments _. 01/08/18.1305.FRANCISCO. I have confirmed the above required items at the time of unit issue: Issuing Tech ........................ Date/Time .................. PT ID VERIFIED AT BEDSIDE PRIOR TO BLOOD ADMINISTRATION PT ID VERIFIED AND DOCUMENTED BY TWO NURSES PT Name same on unit tag,BB ID Bracelet, and blood administration form Verify PT name by asking to state name(if poss.) Pt's MR Number on unit tag is the same as BB ID Bracelet and admin form Verify Pt's ABO Group/Rh from admin form, and unit tag Verify unit number from unit and blood administration form Informed consent obtained? I have checked the above listed items and there were no discrepancies #1 RN signature .................... Date/Time .................. #2 RN signature .................... Date/Time .................. RECORD OF PATIENT'S RESPONSE Date/Time Prior to transfusion ......... Start of transfusion ......... 15 minute check ......... Blood complete/DC ......... SITE: Central Vein Peripheral Vein Central Artery Peripheral Artery AMOUNT GIVEN (1/4, 1/2, 3/4 or full unit) WAS THERE A REACTION TO THE TRANSFUSION? Yes... No... If so, notify the physician and the lab immediately, and initiate a Blood Transfusion Reaction form. COMPLETE FORMS ENTIRELY. KEEP CARDBOARD COPY ATTACHED TO UNIT. PLACE WHITE COPY ON CHART. RETURN YELLOW COPY TO LAB RUPERT UPON COMPLETION OF TRANSFUSION. Performed By: #### [id number] #### [place] [address] TROPONIN Collected: 01/07/2018 Status: F Source: [facility] 4:32 PM [facility] REPOSITORY TYPE CODE TESTS RESULT OUT OF REFERENCE UNITS RANGE LAB TROPONIN 0.00 - 0.05 ng/ml I(LOINC) TROPONIN I 0.01 Result Comment: Elevated troponin (above the 99th percentile) usually indicates myocardial ischemia. Results must be interpreted within the clinical setting. 1.Non-ischemic pathology can also cause elevated troponin levels (e.g., acute pulmonary embolism, myocarditis, pericarditis, heart failure, intracranial injury, rhabdomyolisis, sepsis, shock and renal insufficiency). 2.Approximately 1% of healthy adults have elevated troponin levels. 3.Analytical false positive results rarely occur(due to multiple interferences such as heterophile antibodies). Performed By: #### [id number] #### [place] [address] CT CHEST (PE PROTOCOL) Observed: 01/07/2018 Status: F [facility] [address] Patient: DEMETRIO KAISER Phone#: : [phone] Age: 82 Gender: F Pt. Type: ER Account: [id number] Location: 052 Ordering: ANDREW JOLIE Exam Date: 01/07/2018/15:27 Family Phys: SUMAN STERN Charge Code: [id number] Physician: [place] Order #: [id number] DLP Dose#: 5.3 PROCEDURE: CT CHEST WITH CONTRAST FOR PE COMPARISON: None. INDICATIONS: Elevated d-dimer TECHNIQUE: After obtaining the patient's consent, CT images were obtained with non-ionic intravenous contrast material. Multi-planar images were created to optimize visualization of vascular anatomy with MPR/MIPS and 3D imaging. All CT scans at this facility use dose modulation, iterative reconstruction, and/or weight based dosing when appropriate to reduce radiation dose to as low as reasonably achievable. IV CONTRAST: Omnipaque 350,58ml TOTAL DOSE: 5.3 CTDIvol(mGy) FINDINGS: VASCULATURE: Normal. No visible pulmonary arterial thrombus or attenuation. AORTA: Calcification of aorta is present. No aneurysm or dissection. LUNGS: Normal. No visible pulmonary disease. ASHLEE: Normal. No mass or adenopathy. MEDIASTINUM: A moderate hiatal hernia is present. CARDIAC: Normal. No enlargement, pericardial thickening, or significant calcification. PLEURA: Normal. No mass or effusion. CHEST WALL: A prominent but nonspecific appearing lymph node is present in the right axilla with greatest dimension 2.7 cm. LIMITED ABDOMEN: Normal. Limited images of the upper abdomen are unremarkable. BONES: Mild degenerative changes of the spine are present. OTHER: Negative. CONCLUSION: Continued Report - Page 2 of 2 Patient: DEMETRIO KAISER Phone#: : [phone] Age: 82 Gender: F Pt. Type: ER Account: [id number] Location: 052 Ordering: PerspecSys Exam Date: 01/07/2018/15:27 Family Phys: SUMAN STERN Charge Code: [id number] Physician: [place] Order #: [id number] DLP Dose#: [id number] 1. There is no evidence of pulmonary embolus. 2. There is no evidence of acute pulmonary abnormality. 3. A moderate hiatal hernia is present. Dictated by: Shanon Ventura MD on 01/07/2018 at 15:59 Approved by: Shanon Ventura MD on 01/07/2018 at 15:59 OCCULT BLOOD FECES (1 Collected: 01/07/2018 Status: F Source: [facility] SPECIMEN) 3:15 PM [facility] REPOSITORY TYPE CODE TESTS RESULT OUT OF REFERENCE UNITS RANGE LAB OCCULT BLOOD [NEGATIVE STOOL(LOINC) OCCULT NEGATIVE BLOOD STOOL Performed By: #### [id number] #### [facility],[address] [place] [address] CHEST 1 VIEW Observed: 01/07/2018 Status: F Source: [facility] 2:36 PM [facility] REPOSITORY [place] [id number] Patient: DEMETRIO KAISER Phone#: : [phone] Age: 82 Gender: F Pt. Type: ER Account: [id number] Location: [facility] Ordering: ANDREW CHAN Exam Date: 01/07/2018/14:09 Family Phys: SUMAN STERN Charge Code: [id number] Physician: [place] Order #: [id number] DLP Dose#: PROCEDURE: X-RAY CHEST AP 1 VIEW COMPARISON: None. INDICATIONS: Cough FINDINGS: LUNGS: Normal. No significant pulmonary parenchymal abnormalities. VASCULATURE: Normal. Unremarkable pulmonary vasculature. CARDIAC: Normal. No cardiac silhouette abnormality or cardiomegaly. MEDIASTINUM: Normal. No visible mass or adenopathy. PLEURA: Normal. No effusion or pleural thickening. BONES: Degenerative changes are present at the shoulders. Degenerative changes of the spine are present. There is curvature of the spine to the left. OTHER: There is elevation of the right hemidiaphragm. CONCLUSION: No acute disease. Dictated by: Shanon Ventura MD on 01/07/2018 at 14:38 Approved by: Shanon Ventura MD on 01/07/2018 at 14:38 D-DIMER, QUANTITATIVE Collected: 01/07/2018 Status: F Source: [facility] 2:11 [facility] REPOSITORY TYPE CODE TESTS RESULT OUT OF REFERENCE UNITS RANGE LAB D-DIMER, QUANTITATI VE(LOINC) D-DIMER, QUANTITATIVE Result Comment: QUANT D-DIMER LAB D-DIMER 0 - 230 ng/ml QUANT(LOINC) High D-DIMER QUANT 701 Performed By: #### [id number] #### [place] [id number] TROPONIN Collected: 01/07/2018 Status: F Source: [facility] 2:11 [facility] REPOSITORY TYPE CODE TESTS RESULT OUT OF REFERENCE UNITS RANGE LAB TROPONIN 0.00 - 0.05 ng/ml I(LOINC) TROPONIN I <0.01 Result Comment: Elevated troponin (above the 99th percentile) usually indicates myocardial ischemia. Results must be interpreted within the clinical setting. 1.Non-ischemic pathology can also cause elevated troponin levels (e.g., acute pulmonary embolism, myocarditis, pericarditis, heart failure, intracranial injury, rhabdomyolisis, sepsis, shock and renal insufficiency). 2.Approximately 1% of healthy adults have elevated troponin levels. 3.Analytical false positive results rarely occur(due to multiple interferences such as heterophile antibodies). Performed By: #### [id number] #### [place] [id number] CMP WITH EGFR Collected: 01/07/2018 Status: F Source: [facility] 2:11 [facility] REPOSITORY TYPE CODE TESTS RESULT OUT OF RANGE REFERENCE UNITS LAB CMP with eGFR(LOINC) CMP with eGFR Result Comment: COMPREHENSIVE METABOLIC PANEL LAB SODIUM(LOINC) 136 - 145 mmol/l SODIUM 139 LAB POTASSIUM(LOINC) 3.5 - 5.1 mmol/L POTASSIUM 3.8 LAB CHLORIDE(LOINC) 98 - 107 mmol/L CHLORIDE High 108 LAB CO2(LOINC) 21.0 - mmol/L 31.0 CO2 Low 20.5 LAB GLUCOSE(LOINC) 74 - 106 mg/dl GLUCOSE High 143 LAB BUN(LOINC) 6 - 20 mg/dl BUN High 30 LAB CREATININE(LOINC) 0.6 - 1.2 mg/dl CREATININE 0.9 LAB AST/SGOT(LOINC) 13 - 39 U/L AST/SGOT Low 7 LAB ALK PHOS(LOINC) 38 - 126 U/L ALK PHOS 81 LAB CALCIUM(LOINC) 8.6 - mg/dl 10.2 CALCIUM Low 8.5 LAB TOTAL 6.4 - 8.3 g/dl PROTEIN(LOINC) TOTAL PROTEIN 6.6 LAB ALBUMIN(LOINC) 3.4 - 4.8 g/dL ALBUMIN Low 2.9 LAB GLOBULIN(LOINC) 1.5 - 3.8 G/DL GLOBULIN 3.7 LAB A/G RATIO(LOINC) 0.9 - 1.6 A/G Low RATIO 0.8 LAB TOTAL BILI(LOINC) 0.0 - 1.5 mg/dl TOTAL BILI 0.3 LAB B/C RATIO(LOINC) 0 - 30 ratio B/C High RATIO 33 LAB ALT/SGPT(LOINC) 8 - 35 U/L ALT/SGPT Low 4 LAB ANION GAP(LOINC) 10 - 20 mmol/L ANION GAP 14 LAB AGE(LOINC) years AGE 82 LAB eGFR(LOINC) 60 - 999 ML/MINUTE eGFR 60 LAB eGFR(AA)(LOINC) 60 - 999 ML/MINUTE eGFR(AA) >60 Result Comment: ACCORDING TO THE NATIONAL KIDNEY DISEASE EDUCATION PROGRAM(NKDE), A NORMAL eGFR IS A VALUE GREATER THAN OR EQUAL TO 60 ML/MIN/1.73 SQ METERS. CHRONIC KIDNEY DISEASE: <60mL/MIN/1.73 SQ METERS KIDNEY FAILURE: <15mL/MIN/1.73 SQ METERS THIS TEST SHOULD ONLY BE USED FOR PATIENTS 18 YEARS OF AGE AND OLDER. Performed By: #### [id number] #### [place] [address] MAGNESIUM Collected: 01/07/2018 Status: F Source: [facility] 2:11 PM [facility] REPOSITORY TYPE CODE TESTS RESULT OUT OF REFERENCE UNITS RANGE LAB MAGNESIUM( 1.6 - 2.6 mg/dl LOINC) MAGNESIUM 1.9 Performed By: #### [id number] #### [place] [address] CBC Collected: 01/07/2018 Status: F Source: [facility] 2:11 PM [facility] REPOSITORY TYPE CODE TESTS RESULT OUT OF RANGE REFERENCE UNITS LAB CBC(LOINC) CBC Result Comment: CBC-COMPLETE BLOOD COUNT LAB WBC(LOINC) 4.5 - 10.8 x 10EE3/UL WBC High 14.0 LAB RBC(LOINC) 4.10 - x 10EE6/UL 5.30 RBC Low 3.42 LAB HEMOGLOBIN(LOINC 12.0 - g/dl ) 16.0 Low HEMOGLOBIN 7.2 LAB HEMATOCRIT(LOINC 34.0 - % ) 46.0 Low HEMATOCRIT 22.9 LAB MCV(LOINC) 80 - 99 fl MCV Low 67 LAB MCH(LOINC) 27 - 33 pg MCH Low 21 LAB MCHC(LOINC) 32 - 36 X10 3 MCHC 32 LAB RDW/CV(LOINC) 12.0 - % 15.6 RDW/CV High 19.3 LAB PLATELET(LOINC) 150 - 450 x10EE3/UL PLATELET High 691 LAB MPV(LOINC) 6.6 - 10.5 fl MPV 7.1 Result Comment: AUTOMATED DIFFERENTIAL LAB NEUT %(LOINC) 46.0 - % 76.0 NEUT % 80.3 High LAB LYMPH %(LOINC) 20.0 - % Low 45.0 LYMPH % 11.1 LAB MONOS %(LOINC) 0.0 - 10.0 % MONOS % 6.3 LAB EO %(LOINC) 0.0 - 7.0 % EO % 1.4 LAB BASO %(LOINC) 0.0 - 2.0 % BASO % 0.9 LAB Lymph #(LOINC) 0.80 - x10EE3/ 2.80 UL Lymph # 1.60 LAB Neut #(LOINC) 1.50 - x10EE3/ 7.10 UL Neut # 11.30 High LAB Graves #(LOINC) 0.20 - x10EE3/ 1.00 UL Graves # 0.90 LAB EO #(LOINC) 0.00 - x10EE3/ 0.50 UL EO # 0.20 LAB Baso #(LOINC) 0.00 - x10EE3/ 0.10 UL Baso # 0.10 LAB MANUAL DIFF(LOINC) MANUAL DIFF REVIEWED LAB MORPHOLOGY(LOIN C) MORPHOLOGY SEE BELOW LAB ANISO(LOINC) ANISO 2+ LAB MICROCYTES(QUINCY NC) MICROCYTES 2+ LAB HYPOCHROM(LOIN C) HYPOCHROM 1+ Result Comment: {CD] Performed By: #### [id number] #### [place] [address] PROTHROMBIN TIME AND Collected: 01/07/2018 Status: F Source: [facility] INR 2:11 PM [facility] REPOSITORY TYPE CODE TESTS RESULT OUT OF REFERENCE UNITS RANGE LAB PROTHROMBIN TIME AND INR(LOINC) PROTHROMBIN TIME AND INR Result Comment: PROTHROMBIN TIME AND INR LAB PT-COUMADIN(LOINC) sec PT-COUMADIN 27.4 LAB INR(LOINC) 0.8 - 1.2 INR High 2.5 Result Comment: THE HEMOSIL THROMBOPLASTIN REAGENT USED IN THE PROTHROMBIN TIME TEST INTERACTS WITH THE DRUG CUBICIN (DAPTOMYCIN) AND WILL RESULT IN FALSELY ELEVATED PT / INR RESULTS INR INTERPRETATION INR INDICATION PREVENTION AND TREATMENT OF THROMBOEMBOLISM ASSOCIATED WITH: 2.0 - 3.0 ATRIAL FIBRILLATION, BIOPROSTHETIC HEART VALVES, PULMONARY EMBOLISM, VENOUS THROMBOSIS, SYSTEMIC EMBOLISM POST MYOCARDIAL INFARCTION 2.5 - 3.5 MECHANICAL HEART VALVES Performed By: #### [id number] #### [place] [address] RETICULOCYTE COUNT Collected: 01/07/2018 Status: F Source: [facility] 2:11 PM [facility] REPOSITORY TYPE CODE TESTS RESULT OUT OF REFERENCE UNITS RANGE LAB RETIC 0.0 - 2.3 % COUNT(LOINC) RETIC 1.7 COUNT LAB IRF(LOINC) 0.20 - 0.46 IRF High IRF 0.47 Performed By: #### [id number] #### [place] [address] FERRITIN Collected: 01/07/2018 Status: F Source: [facility] 2:11 PM [facility] REPOSITORY TYPE CODE TESTS RESULT OUT OF REFERENCE UNITS RANGE LAB FERRITIN(LO 10 - 291 ng/mL INC) FERRITIN 53 Performed By: #### [id number] #### [place] [address] IRON AND UIBC Collected: 01/07/2018 Status: F Source: [facility] 2:11 PM [facility] REPOSITORY TYPE CODE TESTS RESULT OUT OF RANGE REFERENCE UNITS LAB IRON(LOINC) 50 - 170 ug/dl Low IRON <10 LAB UIBC(LOINC) 155 - 355 ug/dL UIBC 192 LAB TIBC(LOINC) 250 - 450 ug/dl Low TIBC 202 LAB Sat%(LOINC) 20 - 50 % Low Sat% 5 Performed By: #### [id number] #### [place] [address] VITAMIN B-12 Collected: 01/07/2018 Status: F Source: [facility] 2:11 PM [facility] REPOSITORY TYPE CODE TESTS RESULT OUT OF REFERENCE UNITS RANGE LAB N(LOINC) 180 - 914 pg/mL Low VITAMIN B12 151 Performed By: #### [id number] #### [place] [address] FOLATES Collected: 01/07/2018 Status: F Source: [facility] 2:11 PM [facility] REPOSITORY TYPE CODE TESTS RESULT OUT OF REFERENCE UNITS RANGE LAB FOLATES(QUINCY 3.5 - 20.0 ng/ml MA) FOLATES 16.7 Performed By: #### [id number] #### [place] [address] TSH Collected: 01/07/2018 Status: F Source: [facility] 2:11 PM [facility] REPOSITORY TYPE CODE TESTS RESULT OUT OF RANGE REFERENCE UNITS LAB TSH(LOINC) 0.34 - 5.60 uIU/ml TSH 1.23 Performed By: #### [id number] #### [place] [id number] PROGRESS Observed: 12/21/2017 Status: COMPLETED Source: [place] 11:11 AM [facility] REPOSITORY HNO ID: [id number] Author: Suman Stern III Service: (none) Author Type: Physician Type: Progress Notes Filed: 12/21/2017 11:11 AM Note Text: Demetrio, There is progressive anemia probably caused by rheumatoid arthritis. Continue iron supplementation 2 doses per day. Recheck hemoglobin in 3 months. The other lab results look fine. Suman Stern III, MD, FAAFP CBC Collected: 12/08/2017 Status: F Source: [place] 4:08 PM [facility] REPOSITORY TYPE CODE TESTS RESULT OUT OF REFERENCE UNITS RANGE LAB WBC 3.70-11.00 k/uL WBC 7.58 LAB RBC 3.90-5.20 m/uL Low RBC 3.45 LAB HGB 11.5-15.5 g/dL Low Hemoglobin 8.1 LAB HCT 36.0-46.0 % Low Hematocrit 26.2 LAB MCV 80.0-100.0 fL Low MCV 75.9 LAB MCH 26.0-34.0 pG Low MCH 23.5 LAB MCHC 30.5-36.0 g/dL MCHC 30.9 LAB RDWCV 11.5-15.0 % RDW-CV High 20.4 LAB PLTCT 150-400 k/uL Platelet High Count 751 LAB MPV 9.0-12.7 fL MPV 9.2 LAB ABSNUC <0.01 k/uL Absolute High nRBC 0.01 Performed By: #### TSH, LIPB, CMP, CBC #### [facility] [address] [place] [id number] COMP METABOLIC PANEL Collected: 12/08/2017 Status: F Source: [place] 4:08 PM [facility] REPOSITORY TYPE CODE TESTS RESULT OUT OF REFERENCE UNITS RANGE LAB TP 6.3-8.0 g/dL Protein, Total 7.4 LAB ALB 3.9-4.9 g/dL Low Albumin 3.1 LAB CA 8.5-10.2 mg/dL Calcium, Total 8.5 LAB TBIL 0.2-1.3 mg/dL Bilirubin, Total 0.3 LAB ALKP 32-117 U/L Alkaline Phosphatase 109 LAB AST 13-35 U/L Low AST 10 LAB GLU 74-99 mg/dL Glucose 84 Result Comment: The [place] Diabetes Association (ADA) provides guidance for cutoff values for fasting glucose and random glucose. The ADA defines fasting as no caloric intake for at least 8 hours. Fas ting plasma glucose results between 100 to 125 mg/dL indicate increased risk for diabetes (prediabetes). Fasting plasma glucose results greater than or equal to 126 mg/dL meet the criteria for diagnosis of diabetes. In the absence of unequivocal hyperglycemia, results should be confirmed by repeat testing. In a patient with classic symptoms of hyperglycemia or hyperglycemic crisis, random plasma glucose results greater than or equal to 200 mg/dL meet the criteria for diagnosis of diabetes. Reference: Standards of Medical Care in Diabetes 2016, [place] [employer] Association. Diabetes Care. 2016.39(Suppl 1). LAB BUN 7-21 mg/dL BUN 9 LAB CRET 0.58-0.96 mg/dL Creatinine 0.58 LAB NA 136-144 mmol/L Sodium 139 LAB K 3.7-5.1 mmol/L Potassium 3.9 LAB CL 97-105 mmol/L Chloride 98 LAB CO2 22-30 mmol/L CO2 25 LAB AGAP 9-18 mmol/L Anion Gap 16 LAB ALT 7-38 U/L ALT Low 5 LAB GFRAA eGFR- Amer. >60 LAB GFRNAA . eGFR-All Other Races >60 Result Comment: eGFR (Estimated GFR) Units of measure: mL/min/1.73 meters squared eGFR is derived from the reexpressed MDRD Study equation using the following parameters: serum creatinine, age, gender and race. The creatinine assay has been calibrated to be traceable to IDMS. An eGFR <60 mL/min/1.73m2 for >3 months is consistent with chronic kidney disease. Refer to KDOQI guidelines for clinical interpretation. In patients with unstable renal function, e.g. those with acute kidney injury, the eGFR may not accurately reflect actual GFR. Performed By: #### TSH, LIPB, CMP, CBC #### [facility] [address] [place], [place] [address] LIPID PANEL, BASIC Collected: 12/08/2017 Status: F Source: [place] 4:08 PM [facility] REPOSITORY TYPE CODE TESTS RESULT OUT OF REFERENCE UNITS RANGE LAB CHOL <200 mg/dL Cholesterol 121 Result Comment: <200 mg/dL, Desirable 200-239 mg/dL, Borderline high >239 mg/dL, High LAB TRIGLY <150 mg/dL Triglyceride 53 Result Comment: <150 mg/dL, Normal 150-199 mg/dL, Borderline high 200-499 mg/dL, High >499 mg/dL, Very high LAB HDL >39 mg/dL HDL-Cholesterol 76 Result Comment: 40-59 mg/dL, Acceptable >59 mg/dL, High: Negative risk factor for coronary heart disease <40 mg/dL, Low: Positive risk factor for coronary heart disease LAB LDL <100 mg/dL LDL-Cholesterol 34 Result Comment: <100 mg/dL, Optimal 100-129 mg/dL, Near optimal/above optimal 130-159 mg/dL, Borderline high 160-189 mg/dL, High >189 mg/dL, Very high Secondary prevention optimal LDL Cholesterol levels are recommended to be < 70 mg/dL LAB NONHDL <130 mg/dL Non HDL Cholesterol 45 Result Comment: <130 mg/dL, Optimal 130-159 mg/dL, Near optimal/above optimal 160-189 mg/dL, Borderline high 190-219 mg/dL, High >219 mg/dL, Very high Secondary prevention optimal non HDL Cholesterol levels are recommended to be < 100 mg/dL LAB FT hrs Fasting Time 12 LAB VLDL <30 mg/dL VLDL Cholesterol 11 LAB TCHDL <5.10 TC:HDL Ratio 1.59 LAB LDLHDL <2.54 LDL:HDL Ratio 0.45 Result Comment: Reference: 1. National Cholesterol Education Program ATP III Guideline At-A-Glance Quick Desk Reference: National Heart, Lung, and Blood [place]. National Institutes of Health. 2001: NIH Publication No. 01-3305. 2. An International Atherosclerosis Society position paper: global recommendations for the management of dyslipidemia: executive summary, Atherosclerosis. 2014: 232(2):410-413. Performed By: #### TSH, LIPB, CMP, CBC #### [facility] [address], [place] [address] TSH Collected: 12/08/2017 Status: F Source: [place] 4:08 PM [facility] REPOSITORY TYPE CODE TESTS RESULT OUT OF RANGE REFERENCE UNITS LAB TSH 0.400-5.500 uU/mL TSH 1.180 Performed By: #### TSH, LIPB, CMP, CBC #### [facility] [address] [place], [place] [address] PROGRESS Observed: 12/08/2017 Status: COMPLETED Source: [place] 3:36 PM [facility] REPOSITORY HNO ID: [id number] Author: Suman Stern III Service: (none) Author Type: Physician Type: Progress Notes Filed: 12/08/2017 6:54 PM Note Text: SUBJECTIVE: This is a 82 year old female that is here today for Chronic Medical Conditions. 1. RA--has used norco 100 tabs since Mar, 2017. has pain in upper extremities from shoulders to hands. 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 s/p L BKA following septic L knee/cellulitis/osteomyelitis L lower le. swelling R lower leg (better in AM). EM hose too difficult to use. Due to prolonged sitting with leg dependency. No angina, the patient is sedentary spending most of her day in her scooter and the other part of her day in a recliner/lift chair. No cough. 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 TTE 06/16 showed normal EF, 50-55%. 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 Levothyroxine 75 mcg cap Take 75 mcg by mouth once daily. amLODIPine (NORVASC) 5 mg tablet Take 1 tablet by mouth once daily. HYDROcodone-acetaminophen (NORCO) 5-325 mg per tablet Take 1 tablet by mouth every 6 hours as needed for Pain. Hydrochlorothiazide 12.5 mg capsule Take 1 capsule by mouth once daily. simvastatin (ZOCOR) 20 mg tablet Take 1 tablet by mouth daily at bedtime. FLUoxetine (PROZAC) 20 mg capsule Take 1 capsule by mouth once daily. ferrous sulfate 325 mg (65 mg iron) tablet Take 1 tablet by mouth daily with breakfast. polyethylene glycol 3350 (MIRALAX) 17 gram/dose powder 17 gram/8 oz water by mouth daily mometasone (ELOCON) 0.1 % cream Apply 1 application to affected area once daily. albuterol HFA 90 mcg/actuation inhaler Inhale 2 Puffs as instructed every 4 hours as needed. FOR WHEEZING AND SHORTNESS OF BREATH. warfarin (COUMADIN) 1 mg tablet Coumadin 0.5mg daily No current facility-administered medications on file prior to visit. FAMILY HISTORY Problem Relation Age of Onset - Cancer Sister SKIN - Cancer Brother SKIN - Hearing Loss Mother - Diabetes Brother - Diabetes Sister - Heart Father - Stroke Father - Stroke Brother - ASHD [Other] [OTHER] Brother - Heart Other 2 nephews from heart disease - ASHD [Other] [OTHER] Brother CABG 4 Social History Substance Use Topics - Smoking status: Never Smoker - Smokeless tobacco: Never Used - Alcohol use No BP 126/86 Pulse 74 Resp 16 Wt 56.7 kg (125 lb) BMI 21.45 kg/m2 . OBJECTIVE: APPEARANCE Well appearing, alert, in no acute distress, well-hydrated, well nourished., In her scooter NECK Supple, no adenopathy; thyroid symmetric, normal size, no bruits HEART RRR with normal S1 and S2, no murmurs, no gallops, no JVD appreciated LUNG clear to auscultation EXTREMITIES status post left below the knee amputation. Right lower extremity has no edema of the lower leg and no calf tenderness. Normal color and warmth. Minimal range of motion of both shoulders with pain. Muscle atrophy around the shoulders. From disuse. Excoriations both forearms caused by itching ASSESSMENT: Rheumatoid arthritis?severe/stable Long-term prescription opiate use/appropriate with stable dosing Episodic nonpitting edema R lower leg caused by dependency PLAN: healthy diet and careful activity same medications labs as ordered Suman Stern III MD OARRS website checked and validated. All prescriptions have been APPROPRIATELY filled. No suspicious activity was identified.- 12/08/2017 by Suman Stern III MD CNOV Observed: 12/08/2017 Status: COMPLETED Source: [place] 3:20 PM [facility] REPOSITORY Office Visit ([facility]) DEMETRIO [facility] ([id number]) 1935 F Date Time Provider Department 12/08/17 3:20 PM SUMAN STERN III During your visit today, we recorded the following information about you: Pulse Respiration Blood pressure Weight 74/minute 16/minute 126/86 56.7 kg Suman Stern III MD 12/08/2017 6:54 PM Signed SUBJECTIVE: This is a 82 year old female that is here today for Chronic Medical Conditions. 1. RA--has used norco 100 tabs since Mar, 2017. has pain in upper extremities from shoulders to hands. 2. group home anticoagulation following PE 2009 and multiple DVT 3. s/p L BKA following septic L knee/cellulitis/osteomyelitis L lower le. swelling R lower leg (better in AM). EM hose too difficult to use. Due to prolonged sitting with leg dependency. No angina, the patient is sedentary spending most of her day in her scooter and the other part of her day in a recliner/lift chair. No cough. 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 TTE 06/16 showed normal EF, 50-55%. 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 - Esophagitis - Essential hypertension, benign - Hyperlipidemia LDL goal ANDlt; 100 07/16/2013 - Hypothyroidism 10/08/2010 - Osteoarthritis of hip - Osteoporosis, unspecified Osteoporosis - Other specified anemias - Peripheral vascular disease (HCC) - Pulmonary embolus (HCC) 07/04/2010 - Rheumatoid arthritis involving multiple sites (HCC) 10/10/2015 - Rheumatoid arthritis(714.0) - Unspecified hemorrhoids without mention of complication Hemorrhoids Current Outpatient Prescriptions on File Prior to Visit: lisinopril (ZESTRIL, PRINIVIL) 40 mg tablet Take 1 tablet by mouth every morning. Levothyroxine 75 mcg cap Take 75 mcg by mouth once daily. amLODIPine (NORVASC) 5 mg tablet Take 1 tablet by mouth once daily. HYDROcodone-acetaminophen (NORCO) 5-325 mg per tablet Take 1 tablet by mouth every 6 hours as needed for Pain. Hydrochlorothiazide 12.5 mg capsule Take 1 capsule by mouth once daily. simvastatin (ZOCOR) 20 mg tablet Take 1 tablet by mouth daily at bedtime. FLUoxetine (PROZAC) 20 mg capsule Take 1 capsule by mouth once daily. ferrous sulfate 325 mg (65 mg iron) tablet Take 1 tablet by mouth daily with breakfast. polyethylene glycol 3350 (MIRALAX) 17 gram/dose powder 17 gram/8 oz water by mouth daily mometasone (ELOCON) 0.1 % cream Apply 1 application to affected area once daily. albuterol HFA 90 mcg/actuation inhaler Inhale 2 Puffs as instructed every 4 hours as needed. FOR WHEEZING AND SHORTNESS OF BREATH. warfarin (COUMADIN) 1 mg tablet Coumadin 0.5mg daily No current facility-administered medications on file prior to visit. FAMILY HISTORY Problem Relation Age of Onset - Cancer Sister SKIN - Cancer Brother SKIN - Hearing Loss Mother - Diabetes Brother - Diabetes Sister - Heart Father - Stroke Father - Stroke Brother - ASHD [Other] [OTHER] Brother - Heart Other 2 nephews from heart disease - ASHD [Other] [OTHER] Brother CABG 4 Social History Substance Use Topics - Smoking status: Never Smoker - Smokeless tobacco: Never Used - Alcohol use No BP 126/86 Pulse 74 Resp 16 Wt 56.7 kg (125 lb) BMI 21.45 kg/m2 . OBJECTIVE: APPEARANCE Well appearing, alert, in no acute distress, well- hydrated, well nourished., In her scooter NECK Supple, no adenopathy; thyroid symmetric, normal size, no bruits HEART RRR with normal S1 and S2, no murmurs, no gallops, no JVD appreciated LUNG clear to auscultation EXTREMITIES status post left below the knee amputation. Right lower extremity has no edema of the lower leg and no calf tenderness. Normal color and warmth. Minimal range of motion of both shoulders with pain. Muscle atrophy around the shoulders. From disuse. Excoriations both forearms caused by itching ASSESSMENT: Rheumatoid arthritis?severe/stable Long-term prescription opiate use/appropriate with stable dosing Episodic nonpitting edema R lower leg caused by dependency PLAN: healthy diet and careful activity same medications labs as ordered Suamn Stern III MD OAS website checked and validated. All prescriptions have been APPROPRIATELY filled. No suspicious activity was identified.- 12/08/2017 by JOBY Emery MD, III MD 12/08/2017 3:51 PM Signed PLAN: healthy diet and careful activity same medications labs as ordered Suman Stern III MD Referring Provider: SELF [[id number]] Allergies As of Date: 12/08/2017 Noted Allergy Reaction AUGMENTIN (AMOXICILLIN-POT CLAVUL*04/13/2010 CEFTRIAXONE 04/13/2010 CELECOXIB 04/18/2003 Comments: itch IMURAN (AZATHIOPRINE SODIUM) 04/13/2010 LODINE (ETODOLAC) 02/17/2012 16 - Unknown METHOTREXATE 04/18/2003 Comments: affected liver(cirrhosis) NSAIDS (NON-STEROIDAL ANTI-INFLAM*04/18/2003 Comments: Hives Patient tolerates aspirin PENICILLINS 04/18/2003 Comments: nauseated and vomiting PURINE ANTAGONIST ANTIMETABOLITE 04/18/2003 Comments: nausea and vomiting SULFAMETHOXAZOLE-TRIMETHOPRIM 02/17/2012 2 - Rash Date Reviewed: 12/08/2017 Reviewed by: Kelsie ([facility]) MARI Thompson - Fully Assessed Reason for Visit: Recheck [92] Primary Visit Diagnosis:Venous (peripheral) insufficiency [I87.2] Other Visit Diagnoses:Rheumatoid arthritis involving multiple sites, unspecified rheumatoid factor presence (HCC) [M06.9] Essential hypertension [I10] Iron deficiency anemia, unspecified iron deficiency anemia type [D50.9] Hypothyroidism, unspecified type [E03.9] Hyperlipidemia with target LDL less than 100 [E78.5] Chronic anticoagulation [Z79.01] USP prescription opiate use [Z79.891] Order(s):mometasone (ELOCON) 0.1 % creamApply 1 application to affected area once daily.Disp: 30 gRfl: 1 Hydrochlorothiazide 12.5 mg capsuleTake 1 capsule by mouth once daily.Disp: 90 capsuleRfl: 3 simvastatin (ZOCOR) 20 mg tabletTake 1 tablet by mouth daily at bedtime.Disp: 90 tabletRfl: 3 HYDROcodone-acetaminophen (NORCO) 5-325 mg per tabletTake 1 tablet by mouth every 6 hours as needed for Pain for up to 60 days. Earliest Fill Date: 12/08/17Disp: 100 tabletRfl: 0 CBC [SQCBC] Order #: [id number] FUTURE COMP METABOLIC PANEL [SQCMP] Order #: [id number] FUTURE LIPID PANEL BASIC [SQLIPB] Order #: [id number] FUTURE TSH BLD [SQTSH] Order #: [id number] FUTURE Prescriptions as of 12/08/2017 Sig: MOMETASONE 0.1 % TOPICAL CREAM Apply 1 application to affect* HYDROCHLOROTHIAZIDE 12.5 MG C* Take 1 capsule by mouth once * SIMVASTATIN 20 MG TABLET Take 1 tablet by mouth daily * HYDROCODONE 5 MG-ACETAMINOPHE* Take 1 tablet by mouth every * LISINOPRIL 40 MG TABLET Take 1 tablet by mouth every * LEVOTHYROXINE 75 MCG CAPSULE Take 75 mcg by mouth once deana* AMLODIPINE 5 MG TABLET Take 1 tablet by mouth once d* FLUOXETINE 20 MG CAPSULE Take 1 capsule by mouth once * FERROUS SULFATE 325 MG (65 MG* Take 1 tablet by mouth daily * POLYETHYLENE GLYCOL 3350 17 G* 17 gram/8 oz water by mouth d* ALBUTEROL SULFATE HFA 90 MCG/* Inhale 2 Puffs as instructed * WARFARIN 1 MG TABLET Coumadin 0.5mg daily Problem List As Of Date 12/08/2017 Noted Resolved IRON DEFIC ANEMIA NOS [D50.9] INVALID FOR* Carpal tunnel syndrome [G56.00] INVALID FOR*02/21/2015 OSTEOPOROSIS NOS [M81.0] More... 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 ASTHMA UNSPECIFIED [J45.909] INVALID FOR* Open wound of knee, leg (except thigh), and ank*INVALID FOR*02/21/2015 Primary localized osteoarthrosis, lower leg [M1*INVALID FOR*02/21/2015 ADJUSTMENT DISORDER WITH DEPRESSED MOOD [F43.21]INVALID FOR* S/P RIGHT HIP JOINT REPLACEMENT [Z96.649] INVALID FOR*02/21/2015 LT HIP, COMPLIC MEDICAL LOGISTICS SPECIALIST JOINT DEVICE [996.77] [T*INVALID FOR*02/17/2012 Priority: D More... RIGHT KNEE RHEUM ARTHRITIS [714.2] [M05.60] INVALID FOR* S/P RIGHT KNEE REPLACEMENT [V43.65] [Z96.659] INVALID FOR*12/31/2016 LT KNEE, INFEC/INFLAM-MEDICAL LOGISTICS SPECIALIST JOINT DEV [996.66]*INVALID FOR*02/21/2015 SUMMARY [V999.95] INVALID FOR* More... Abnormal Stress Test [R94.39] INVALID FOR* Priority: A More... Hypertension [I10] INVALID FOR* Priority: C More... Femoral DVT (deep venous thrombosis) (HCC) [I82*INVALID FOR*02/21/2015 More... 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 Rheumatoid arthritis involving multiple sites (*INVALID FOR* Chronic anticoagulation [Z79.01] INVALID FOR* C. 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 HYDROCHLOROTHIAZIDE 12.5 MG CAPSULE 90 c* 3 12/08/2017 Route: ORAL Sig: Take 1 capsule by mouth once daily. SIMVASTATIN 20 MG TABLET 90 t* 3 12/08/2017 Route: ORAL Sig: Take 1 tablet by mouth daily at bedtime. HYDROCODONE 5 MG-ACETAMINOPHEN 325 M* 100 * 0 12/08/2017 02/06/2018 Class: Print RX Route: ORAL Sig: Take 1 tablet by mouth every 6 hours as needed for Pain for up to 60 days. Earliest Fill Date: 12/08/17 Medications Discontinued During This Encounter terbinafine HCl (LAMISIL) 1 % cream 1 Tu* 1 04/01/2017 12/08/2017 Route: TOPICAL Sig: Apply 1 application to affected area twice daily. Disc: Course of therapy completed mometasone (ELOCON) 0.1 % cream 30 g 1 06/06/2016 12/08/2017 Route: TOPICAL Sig: Apply 1 application to affected area once daily. Disc: Reason for discontinue is not on file. Hydrochlorothiazide 12.5 mg capsule 90 c* 3 11/20/2016 12/08/2017 Route: ORAL Sig: Take 1 capsule by mouth once daily. Disc: Reason for discontinue is not on file. simvastatin (ZOCOR) 20 mg tablet 90 t* 3 11/13/2016 12/08/2017 Route: ORAL Sig: Take 1 tablet by mouth daily at bedtime. Disc: Reason for discontinue is not on file. HYDROcodone-acetaminophen (NORCO) 5-* 100 * 0 04/01/2017 12/08/2017 Class: Print RX Route: ORAL Sig: Take 1 tablet by mouth every 6 hours as needed for Pain. Disc: Reason for discontinue is not on file. Encounter Status:Closed by SUMAN STERN III, MD on 12/08/17 LIS Observed: 11/07/2017 Status: COMPLETED Source: [place] 12:00 AM [facility] REPOSITORY [facility] DEM[facility]RIO [facility] ([id number]) 1935 F Date Time Provider Department 11/07/17 [facility] During your visit today, we recorded the following information about you: Kelsie Thompson CMA, MA 11/07/2017 3:27 PM Signed Current INR 2.4 on 11/07/17 Current dose of coumadin is take 1 mg every Friday, 0.5 mg all other days. Recheck INR in 1 week. Previous INR (date and result) 10/31 - 2.4 DORIS Vela MD 11/07/2017 4:11 PM Signed I agree with the advice given; stay on 1 mg every Friday, 0.5 mg all other days. Recheck INR in 1 week MD Milagro White Ma 11/07/2017 4:21 PM Signed Pt notified. Milagro Sutton Ma Allergies As of Date: 11/07/2017 Noted Allergy Reaction AUGMENTIN (AMOXICILLIN-POT CLAVUL*04/13/2010 CEFTRIAXONE 04/13/2010 CELECOXIB 04/18/2003 Comments: itch IMURAN (AZATHIOPRINE SODIUM) 04/13/2010 LODINE (ETODOLAC) 02/17/2012 16 - Unknown METHOTREXATE 04/18/2003 Comments: affected liver(cirrhosis) NSAIDS (NON-STEROIDAL ANTI-INFLAM*04/18/2003 Comments: Hives Patient tolerates aspirin PENICILLINS 04/18/2003 Comments: nauseated and vomiting PURINE ANTAGONIST ANTIMETABOLITE 04/18/2003 Comments: nausea and vomiting SULFAMETHOXAZOLE-TRIMETHOPRIM 02/17/2012 2 - Rash Date Reviewed: 04/01/2017 Reviewed by: Sadia Garcia Ma - Fully Assessed Reason for Visit: Anticoagulation [8] Order(s):PROTHROMBIN TIME/PT [SQPT] Order #: [id number] PROTHROMBIN TIME/PT [SQPT] Order #: [id number] Prescriptions as of 11/07/2017 Sig: WARFARIN 1 MG TABLET Coumadin 1 mg on 10/16 and 12* LISINOPRIL 40 MG TABLET Take 1 tablet by mouth every * LEVOTHYROXINE 75 MCG CAPSULE Take 75 mcg by mouth once deana* AMLODIPINE 5 MG TABLET Take 1 tablet by mouth once d* HYDROCODONE 5 MG-ACETAMINOPHE* Take 1 tablet by mouth every * TERBINAFINE HCL 1 % TOPICAL C* Apply 1 application to affect* HYDROCHLOROTHIAZIDE 12.5 MG C* Take 1 capsule by mouth once * SIMVASTATIN 20 MG TABLET Take 1 tablet by mouth daily * FLUOXETINE 20 MG CAPSULE Take 1 capsule by mouth once * FERROUS SULFATE 325 MG (65 MG* Take 1 tablet by mouth daily * POLYETHYLENE GLYCOL 3350 17 G* 17 gram/8 oz water by mouth d* MOMETASONE 0.1 % TOPICAL CREAM Apply 1 application to affect* ALBUTEROL SULFATE HFA 90 MCG/* Inhale 2 Puffs as instructed * Problem List As Of Date 11/07/2017 Noted Resolved IRON DEFIC ANEMIA NOS [D50.9] INVALID FOR* Carpal tunnel syndrome [G56.00] INVALID FOR*02/21/2015 OSTEOPOROSIS NOS [M81.0] More... 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 ASTHMA UNSPECIFIED [J45.909] INVALID FOR* Open wound of knee, leg (except thigh), and ank*INVALID FOR*02/21/2015 Primary localized osteoarthrosis, lower leg [M1*INVALID FOR*02/21/2015 ADJUSTMENT DISORDER WITH DEPRESSED MOOD [F43.21]INVALID FOR* S/P RIGHT HIP JOINT REPLACEMENT [Z96.649] INVALID FOR*02/21/2015 LT HIP, COMPLIC MEDICAL LOGISTICS SPECIALIST JOINT DEVICE [996.77] [T*INVALID FOR*02/17/2012 Priority: D More... RIGHT KNEE RHEUM ARTHRITIS [714.2] [M05.60] INVALID FOR* S/P RIGHT KNEE REPLACEMENT [V43.65] [Z96.659] INVALID FOR*12/31/2016 LT KNEE, INFEC/INFLAM-MEDICAL LOGISTICS SPECIALIST JOINT DEV [996.66]*INVALID FOR*02/21/2015 SUMMARY [V999.95] INVALID FOR* More... Abnormal Stress Test [R94.39] INVALID FOR* Priority: A More... Hypertension [I10] INVALID FOR* Priority: C More... Femoral DVT (deep venous thrombosis) (HCC) [I82*INVALID FOR*02/21/2015 More... 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 Rheumatoid arthritis involving multiple sites (*INVALID FOR* Chronic anticoagulation [Z79.01] INVALID FOR* C. difficile enteritis [A04.72] INVALID FOR*04/01/2017 Encounter Status:Closed by MILAGRO SUTTON MA on 11/07/17 ALLERGIES ALLERGIES DATE TYPE / CODE NAME / CODE REACTION SEVERITY SOURCE Drug methotrexate/B16403 effect to Unknown Oral 8 Allergy/948219409( 2644(RXNORM) liver [facility] Hospital Repository Drug NSAIDS Hives Unknown Dave 8 Allergy/016177418( (Non-Steroidal Community SNOM[facility]) Anti-Inflamma/F0010 Hospital 80085(RXNORM) Repository Drug Penicillins/E087621 Hives Unknown Dave 8 Allergy/460474323( 476(RXNORM) [facility]) Hospital Repository Drug clavulanic Hives Unknown Oral 8 Allergy/104077329( acid/Q050349682(RXN [facility]) ORM) Hospital Repository Drug sulfamethoxazole/F0 Hives Unknown Oral 8 Allergy/378190924( 96125980(RXNORM) [facility]) Hospital Repository Drug azathioprine/X74292 Hives Unknown Dave 8 Allergy/946784264( 3419(RXNORM) [facility]) Hospital Repository Drug etodolac/G648756874 Hives Unknown Oral 8 Allergy/011485560( (RXNORM) [facility]) Hospital Repository Drug amoxicillin/D066396 Hives Unknown Dave 8 Allergy/472982958( 675(RXNORM) [facility]) Hospital Repository Drug ceftriaxone/F927856 Hives Unknown Dave 8 Allergy/367555622( 849(RXNORM) [facility]) Hospital Repository Drug celecoxib/V81165410 Hives Unknown Dave 8 Allergy/604307293( 1(RXNORM) [facility]) Hospital Repository Miscellaneous arthritis effected the Unknown Dave 8 Allergy/102450414( medications liver [facility]) Hospital Repository DRUG ETODOLAC UNKNOWN Ramos 2 INGREDI/793261282( Clinic Main SNOMED CT) [place] Repository DRUG/765288134(SNO SULFAMETHOXAZOLE-TR [place]ASH [place] [address] [facility] [address]) IMETHOPRIM [facility] Main [place] Repository DRUG/441637255(SNO AMOXICILLIN-POT Ramos [address] [facility] [address]) CLAVULANATE [facility] Main [place] Repository DRUG CEFTRIAXONE Ramos 0 INGREDI/213907987( Clinic Main SNOMED CT) [place] Repository DRUG AZATHIOPRINE SODIUM Ramos 0 INGREDI/207109350( Clinic Main SNOMED CT) [place] Repository DRUG CELECOXIB Ramos 3 INGREDI/981762950( Clinic Main SNOMED CT) [place] Repository DRUG METHOTREXATE Ramos 3 INGREDI/123999510( Clinic Main SNOMED CT) [place] Repository Drug NSAIDS Ramos 3 Class/169158350(SN (NON-STEROIDAL Clinic Main OMED CT) ANTI-INFLAMMATORY [place] DRUG) Repository Drug PENICILLINS Ramos 3 Class/613636463(SN Clinic Main OMED CT) [place] Repository Drug PURINE ANTAGONIST Ramos 3 Class/818767480(SN ANTIMETABOLITE Clinic Main OMED CT) [place] Repository Drug AUGMENTIN/63533100( Moderate Eran Pomerene Allergy/299166865( RXNORM) ([facility] Modifier) Hospital (Qualifier Repository Value) Drug CELEBREX/15743291(R Moderate Eran Pomerene Allergy/047886052( XNORM) ([facility]) Modifier) Hospital (Qualifier Repository Value) Drug LODINE/33749337(RXN Moderate Eran Pomerene Allergy/058049627( ORM) ([facility]) Modifier) Hospital (Qualifier Repository Value) ENCOUNTERS ENCOUNTERS ADMIT/DISCHARGE ACCOUNT ADMITTING ENCOUNTER LOCATION SOURCE NUMBER CLASS 10/15/2018 [id number] Ambulatory BMSBuilding:[place].CF.[facility] Repository 10/15/2018/10/16/20 [id number] Ambulatory [address] ing: Repository 10/13/2018/10/14/20 [id number] Ambulatory [address] Main [place] Repository 10/01/2018/10/07/20 [id number] Ambulatory [address] Repository 09/18/2018/09/24/20 [id number] Ambulatory [address] Repository 09/10/2018 [id number] Ambulatory BMSBuilding:[place] MS.CF.[facility] Repository 09/10/2018/09/16/20 [id number] Ambulatory Dave[address] ing: Repository 09/08/2018/09/08/20 [id number] Ambulatory [address] Repository 09/08/2018/09/09/20 [id number] Ambulatory [address] Repository 08/13/2018 [id number] Ambulatory BMSBuilding:B Oral MS.CF.[facility] Hospital Repository 08/13/2018/08/16/20 [id number] Ambulatory [address] Hospital ing:[place] Repository 08/06/2018 [id number] Ambulatory BMSBuilding:B Dave MS.CF.[facility] Repository 07/30/2018 [id number] Ambulatory BMSBuilding:B Oral [place].CF.[facility] Repository 07/23/2018 [id number] Ambulatory BMSBuilding:B Oral [place].CF.[facility] Repository 07/09/2018/07/17/20 [id number] Ambulatory [address] Hospital ing:WC Repository 07/09/2018 [id number] Ambulatory BMSBuilding:B Dave MS.CF.[facility] Repository 07/06/2018/07/07/20 [id number] Ambulatory [address] Repository 07/02/2018 [id number] Ambulatory BMSBuilding:B Oral MS.CF.[facility] Repository 06/29/2018/06/29/20 [id number] Emergency [address] Hospital ing:ED Repository 06/25/2018 [id number] Ambulatory BMSBuilding:B Dave MS.CF.[facility] Repository 06/18/2018 [id number] Ambulatory BMSBuilding:B Dave MS.CF.[facility] Repository 06/11/2018/06/16/20 [id number] Ambulatory [address] Hospital ing:WC Repository 06/11/2018 [id number] Ambulatory BMSBuilding:B Oral MS.CF.[facility] Repository 06/08/2018/06/09/20 [id number] Ambulatory [address] Repository 06/04/2018 [id number] Ambulatory BMSBuilding:B Dave MS.CF.[facility] Repository 05/28/2018 [id number] Ambulatory BMSBuilding:[place] MS.CF.[facility] Repository 05/21/2018 [id number] Ambulatory BMSBuilding:[place] MS.CF.[facility] Repository 05/14/2018/05/16/20 [id number] Ambulatory [address] ing:[place] Repository 05/14/2018 [id number] Ambulatory BMSBuilding:[place] MS.CF.[facility] Repository 05/07/2018 [id number] Ambulatory BMSBuilding:[place] MS.CF.[facility] Repository 04/30/2018 [id number] Ambulatory BMSBuilding:[place] MS.CF.[facility] Repository 03/24/2018/03/25/20 [id number] Ambulatory [address] Repository 03/24/2018/03/25/20 [id number] Ambulatory [address] Repository 03/20/2018 [id number] Ambulatory [facility] ing:LAB Repository 02/25/2018 [id number] CARL[facility] Rep[facility] 02/25/2018 [id number] Ambulatory [facility] ing:LAB Repository 02/23/2018/02/24/20 [id number] Emergency [address] ing:ED Repository 02/10/2018/02/15/20 [id number] Ambulatory [address] ing:LAB Repository 02/09/2018/02/11/20 [id number] Ambulatory [address] Repository 02/03/2018/02/10/20 [id number] Ambulatory [address] Repository 02/03/2018/02/04/20 [id number] Ambulatory [address] Repository 01/26/2018 [id number] Ambulatory BMSBuilding:W [facility] Repository 01/25/2018/01/27/20 [id number] Ambulatory [address] ing:ENRoom: Repository MS308 01/22/2018/01/28/20 [id number] Ambulatory [address] Repository 01/12/2018/01/13/20 [id number] Ambulatory [address] Repository 01/08/2018/01/09/20 [id number] EMMANUELLESUSHILA, Inpatient BuildinR Eran Caraballo 18 [address]LRICH Encounter oom: [address] [place] [address] Repository 12/08/2017/12/08/19 [id number] Ambulatory [address] Repository 12/08/2017/12/08/19 [id number] Ambulatory [address] Repository PAYERS PAYERS ENCOUNTER GUARANTOR PAYER SUBSCRIBER SOURCE 10/15/2018 Kelton Messer Primary DEMETRIO A Dave [id number] State Insurance:MEDICARE TATEDOB: Community [address] [place] [address], PART A [facility] [id number] Mexico Rehabilitation Center [address]Pms: Number: Repository [id number] (HP) Date:2018-04-30 10/15/2018 Secondary DEMETRIO A Oral Insurance:MEDICAL TATEDOB: [facility] 2640-09-99DTT Hospital Number: Repository [id number] Date:0375-32-33LI [address] [place] [address]QK: 10/15/2018 Tertiary NOT GIVENUNK Dave Insurance:SELF PAY [facility] Number: Effective Repository Date:2018-10-15 10/15/2018 Kelton Messer Primary DEMETRIO A Dave [id number] State Insurance:MEDICARE TATEDOB: Community [address] [place] [address], PART A [facility] [id number] Mexico Rehabilitation Center [address]Ikq: Number: Repository [id number] (HP) Date:2018-04-30 10/15/2018 Secondary DEMETRIO A Dave Insurance:MEDICAL TATEDOB: [facility] 1520-51-25EVM Hospital Number: Repository [id number] Date:1601-62-09CJ[address] [address]BF: 10/15/2018 Tertiary NOT GIVENUNK Oral Insurance:SELF PAY [facility] Number: Effective Repository Date:2018-09-17 09/10/2018 Kelton Messer Primary DEMETRIO A Oral [id number] State Insurance:MEDICARE TATEDOB: [facility] [id number] Mexico Rehabilitation Center [address]Fya: Number: Repository [id number] (HP) Date:2018-04-30 09/10/2018 Secondary DEMETRIO A Dave Insurance:MEDICAL TATEDOB: [facility] [id number] Hospital Number: Repository [id number] Date:0530-22-59UE[address] [address]MT: 09/10/2018 Tertiary NOT GIVENUNK Dave Insurance:SELF PAY [facility] Number: Effective Repository Date:2018-09-10 09/10/2018 Kelton Messer Primary DEMETRIO A Oral [id number] State Insurance:MEDICARE TATEDOB: Community [address] [place] [address], PART A [facility] [id number] Mexico Rehabilitation Center [address]Xcd: Number: Repository [id number] (HP) Date:2018-04-30 09/10/2018 Secondary DEMETRIO A Dave Insurance:MEDICAL TATEDOB: [facility] 3045-08-03EUR Hospital Number: Repository [id number] Date:5512-34-41ET[address] [address]FG: 09/10/2018 Tertiary NOT GIVENUNK Oral Insurance:SELF PAY [facility] Number: Effective Repository Date:2018-08-17 08/13/2018 Kelton Messer Primary DEMETRIO A Dave [id number] State Insurance:MEDICARE TATEDOB: Community [address] [place], [place] [address]ve, PART A [facility] [id number] Mexico Rehabilitation Center [address]Mwp: Number: Repository [id number] (HP) Date:2018-04-30 08/13/2018 Secondary DEMETRIO A Dave Insurance:MEDICAL TATEDOB: [facility] [id number] Hospital Number: Repository [id number] Date:5437-96-12YQ [address] [address]DI: 08/13/2018 Tertiary NOT GIVENUNK Oral Insurance:SELF PAY [facility] Number: Effective Repository Date:2018-08-13 08/13/2018 Kelton Messer Primary DEMETRIO A Oral [id number] State Insurance:MEDICARE TATEDOB: Community [address] [place] [address], PART A [facility] [id number] Mexico Rehabilitation Center [address]Rrb: Number: Repository [id number] (HP) Date:2018-04-30 08/13/2018 Secondary DEMETRIO A Oral Insurance:MEDICAL TATEDOB: [place] 591727-11-15[facility] Number: Repository [id number] Date:5473-31-60VB [address] [place] [address]TR: 08/13/2018 Tertiary NOT GIVENUNK Oral Insurance:SELF PAY [facility] Number: Effective Repository Date:2018-07-18 08/06/2018 Kelton F Primary DEMETRIO A Dave [id number] State Insurance:MEDICARE TATEDOB: Community [address] [place] [address], PART A [facility] [id number] Mexico Rehabilitation Center [address]Nws: Number: Repository [id number] (HP) Date:2018-04-30 08/06/2018 Secondary DEMETRIO A Oral Insurance:MEDICAL TATEDOB: [facility] [id number] Hospital Number: Repository [id number] Date:9409-41-94ZK [address] [place] [address]OB: 08/06/2018 Tertiary NOT GIVENUNK Oral Insurance:SELF PAY [facility] Number: Effective Repository Date:2018-08-06 07/30/2018 Kelton F Primary DEMETRIO A Dave [id number] State Insurance:MEDICARE TATEDOB: Community [address] [place] [address], PART A [facility] [id number] Mexico Rehabilitation Center [address]Ooi: Number: Repository [id number] (HP) Date:2018-04-30 07/30/2018 Secondary DEMETRIO A Oral Insurance:MEDICAL TATEDOB: [facility] [id number] Hospital Number: Repository [id number] Date:9978-54-82OQ [address] [place] [address]WG: 07/30/2018 Tertiary NOT GIVENUNK Oral Insurance:SELF PAY [facility] Number: Effective Repository Date:2018-07-30 07/23/2018 Kelton Messer Primary DEMETRIO A Dave [id number] State Insurance:MEDICARE TATEDOB: Community [address] [place] [address], PART A [facility] [id number] Mexico Rehabilitation Center [address]Irx: Number: Repository [id number] (HP) Date:2018-04-30 07/23/2018 Secondary DEMETRIO A Oral Insurance:MEDICAL TATEDOB: [facility] [id number] Hospital Number: Repository [id number] Date:0739-30-31SZ [address] [place] [address]AH: 07/23/2018 Tertiary NOT GIVENUNK Dave Insurance:SELF PAY [facility] Number: Effective Repository Date:2018-07-23 07/09/2018 Kelton Messer Primary DEMETRIO A Oral [id number] State Insurance:MEDICARE TATEDOB: Community [address] [place] [address], PART A [facility] [id number] Mexico Rehabilitation Center [address]Mlh: Number: Repository [id number] (HP) Date:2018-04-30 07/09/2018 Secondary DEMETRIO A Oral Insurance:MEDICAL TATEDOB: [facility] 1864-51-35AAH Hospital Number: Repository [id number] Date:7939-25-94HG [address] [address]JV: 07/09/2018 Tertiary NOT GIVENUNK Dave Insurance:SELF PAY [facility] Number: Effective Repository Date:2018-06-17 07/09/2018 Kelton Messer Primary DEMETRIO A Oral [id number] State Insurance:MEDICARE TATEDOB: Community [address] [place], [place] [address], PART A [facility] [id number] Mexico Rehabilitation Center [address]Gqb: Number: Repository [id number] (HP) Date:2018-04-30 07/09/2018 Secondary DEMETRIO A Dave Insurance:MEDICAL TATEDOB: [facility] [id number] Hospital Number: Repository [id number] Date:7518-43-14UC [address] [place] [address]CD: 07/09/2018 Tertiary NOT GIVENUNK Dave Insurance:SELF PAY [facility] Number: Effective Repository Date:2018-07-09 07/02/2018 Kelton Messer Primary DEMETRIO A Dave [id number] State Insurance:MEDICARE TATEDOB: Community [address] [place] [address], PART A [facility] [id number] Mexico Rehabilitation Center [address]Aeh: Number: Repository [id number] (HP) Date:2018-04-30 07/02/2018 Secondary DEMETRIO A Oral Insurance:MEDICAL TATEDOB: [facility] [id number] Hospital Number: Repository [id number] Date:3018-75-23KB[address] [address]TD: 07/02/2018 Tertiary NOT GIVENUNK Dave Insurance:SELF PAY [facility] Number: Effective Repository Date:2018-07-02 06/29/2018 Kelton Messer Primary DEMETRIO A Dave [id number] State Insurance:MEDICARE TATEDOB: Community [address] [place] [address], PART A [facility] [id number] Mexico Rehabilitation Center [address]Mes: Number: Repository [id number] (HP) Date:2018-06-29 06/29/2018 Secondary DEMETRIO A Oral Insurance:MEDICAL TATEDOB: [place] [id number] Hospital Number: Repository [id number] Date:9286-12-44SN [address] [place] [address]ZH: 06/29/2018 Tertiary NOT GIVENUNK Dave Insurance:SELF PAY [facility] Number: Effective Repository Date:2018-06-29 06/25/2018 Kelton F Primary DEMERTIO A Oral [id number] State Insurance:MEDICARE TATEDOB: Community [address] [place], [place] [address], PART A [facility] [id number] Mexico Rehabilitation Center [address]Wyf: Number: Repository [id number] (HP) Date:2018-04-30 06/25/2018 Secondary DEMETRIO A Dave Insurance:MEDICAL TATEDOB: [address]11-15[facility] Number: Repository [id number] Date:0612-42-19XE [address] [place] [address]VR: 06/25/2018 Tertiary NOT GIVENUNK Oral Insurance:SELF PAY [facility] Number: Effective Repository Date:2018-06-25 06/18/2018 Kelton F Primary DEMETRIO A Dave [id number] State Insurance:MEDICARE TATEDOB: Community [address] [place] [address], PART A [facility] [id number] Mexico Rehabilitation Center [address]Rwd: Number: Repository [id number] (HP) Date:2018-04-30 06/18/2018 Secondary DEMETRIO A Oral Insurance:MEDICAL TATEDOB: [facility] [id number] Hospital Number: Repository [id number] Date:5192-39-43VP [address] [place] [address]EO: 06/18/2018 Tertiary NOT GIVENUNK Dave Insurance:SELF PAY [facility] Number: Effective Repository Date:2018-06-18 06/11/2018 Kelton F Primary DEMETRIO A Dave [id number] State Insurance:MEDICARE TATEDOB: [address] [place], [place] [address]ve, PART A [facility] [id number] Mexico Rehabilitation Center [address]Zup: Number: Repository [id number] (HP) Date:2018-04-30 06/11/2018 Secondary DEMETRIO A Oral Insurance:MEDICAL TATEDOB: [address]11-15[facility] Number: Repository [id number] Date:4558-18-53IQ [address] [address]XY: 06/11/2018 Tertiary NOT GIVENUNK Oral Insurance:SELF PAY [facility] Number: Effective Repository Date:2018-05-17 06/11/2018 Kelton Messer Primary DEMETRIO A Oral [id number] State Insurance:MEDICARE TATEDOB: [address] [place] [address], PART A [facility] [id number] Mexico Rehabilitation Center [address]Ysm: Number: Repository [id number] (HP) Date:2018-04-30 06/11/2018 Secondary DEMETRIO A Oral Insurance:MEDICAL TATEDOB: [facility] [id number] Hospital Number: Repository [id number] Date:4178-93-05ML[address] [address]EM: 06/11/2018 Tertiary NOT GIVENUNK Dave Insurance:SELF PAY [facility] Number: Effective Repository Date:2018-06-11 06/04/2018 Kelton F Primary DEMETRIO A Dave [id number] State Insurance:MEDICARE TATEDOB: [address] [place] [address], PART A [facility] [id number] Mexico Rehabilitation Center [address]Jlx: Number: Repository [id number] (HP) Date:2018-04-30 06/04/2018 Secondary DEMETRIO A Oral Insurance:MEDICAL TATEDOB: [place] 591727-11-15[facility] Number: Repository [id number] Date:3731-72-36LC [address] [address]SB: 06/04/2018 Tertiary NOT GIVENUNK Oral Insurance:SELF PAY [facility] Number: Effective Repository Date:2018-06-04 05/28/2018 Kelton Messer Primary DEMETRIO A Dave [id number] State Insurance:MEDICARE TATEDOB: [address] [place] [address], PART A [facility] [id number] Mexico Rehabilitation Center [address]Oyr: Number: Repository [id number] (HP) Date:2018-04-30 05/28/2018 Secondary DEMETRIO A Dave Insurance:MEDICAL TATEDOB: [facility] [id number] Hospital Number: Repository [id number] Date:6083-41-85PV[address] [address]CV: 05/28/2018 Tertiary NOT GIVENUNK Dave Insurance:SELF PAY [facility] Number: Effective Repository Date:2018-05-28 05/21/2018 Kelton Messer Primary DEMETRIO A Dave [id number] State Insurance:MEDICARE TATEDOB: [address] [place] [address], PART A [facility] [id number] Mexico Rehabilitation Center [address]Sfy: Number: Repository [id number] (HP) Date:2018-04-30 05/21/2018 Secondary DEMETRIO A Dave Insurance:MEDICAL TATEDOB: [facility] [id number] Hospital Number: Repository [id number] Date:7686-31-67TE[address] [address]RO: 05/21/2018 Tertiary NOT GIVENUNK Dave Insurance:SELF PAY [facility] Number: Effective Repository Date:2018-05-21 05/14/2018 Kelton Messer Primary DEMETRIO A Dave [id number] State Insurance:MEDICARE TATEDOB: [address] [place] [address], PART A [facility] [id number] Mexico Rehabilitation Center [address]Orv: Number: Repository [id number] (HP) Date:2018-04-30 05/14/2018 Secondary DEMETRIO A Dave Insurance:MEDICAL TATEDOB: [place] [id number] Hospital Number: Repository [id number] Date:2212-03-56KB [address] [place] [address]ET: 05/14/2018 Tertiary NOT GIVENUNK Oral Insurance:SELF PAY [facility] Number: Effective Repository Date:2018-04-30 05/14/2018 Kelton Messer Primary DEMETRIO A Dave [id number] State Insurance:MEDICARE TATEDOB: Community [address] [place] [address], PART A [facility] [id number] [facility] Rehabilitation Center [address]Fup: Number: Repository [id number] (HP) Date:2018-04-30 05/14/2018 Secondary DEMETRIO A Oral Insurance:MEDICAL TATEDOB: [address]11-15[facility] Number: Repository [id number] Date:5657-77-56RY [facility] [address] [place] [id number]: 05/14/2018 Tertiary NOT GIVENUNK Oral Insurance:SELF PAY [facility] Number: Effective Repository Date:2018-05-14 05/07/2018 Kelton F Primary DEMETRIO A Dave [id number] State Insurance:MEDICARE TATEDOB: [address] [place] [address], PART A [facility] [id number] Mexico Rehabilitation Center [address]Owd: Number: Repository [id number] (HP) Date:2018-04-30 05/07/2018 Secondary DEEMTRIO A Oral Insurance:MEDICAL TATEDOB: [facility] [id number] Hospital Number: Repository [id number] Date:4563-40-82ON [address] [address]FI: 05/07/2018 Tertiary NOT GIVENUNK Dave Insurance:SELF PAY [facility] Number: Effective Repository Date:2018-05-07 04/30/2018 Kelton F Primary DEMETRIO A Oral [id number] State Insurance:MEDICARE TATEDOB: [address] [place] [address], PART A [facility] [id number] Mexico Rehabilitation Center [address]Czf: Number: Repository [id number] (HP) Date:2018-04-30 04/30/2018 Secondary DEMETRIO A Dave Insurance:MEDICAL TATEDOB: [facility] [id number] Hospital Number: Repository [id number] Date:9837-05-13UF[address] [address]ZB: 04/30/2018 Tertiary NOT GIVENUNK Oral Insurance:SELF PAY [facility] Number: Effective Repository Date:2018-04-30 03/20/2018 Kelton Messer Primary DEMETRIO A Oral [id number] State Insurance:MEDICARE TATEDOB: [facility] [address] [place] [address], [facility] A [facility] [id number] Mexico Rehabilitation Center [address]Vap: Number: Repository [id number] () Date:2018-03-20 03/20/2018 Secondary DEMETRIO A Dave Insurance:MEDICAL TATEDOB: [facility] [id number] Hospital Number: Repository [id number] Date:2827-93-01WQ[address] [address]BW: 03/20/2018 Tertiary NOT GIVENUNK Dave Insurance:SELF PAY [facility] Number: Effective Repository Date:2018-03-20 02/25/2018 DEMETRIO A Primary DEMETRIO A Eran Pomerene TATEDOB: Insurance:MEDICARE TATEDOB: [facility] [id number] [facility] [id number], [facility] Number: [address] [place]ository [place] [id number]: [id number] 4[place], [place] Date:Plan Name: [id number] () 02/25/2018 Secondary DEMETRIO A Eran Pomerene Insurance:MEDICAL TATEDOB: [facility] [id number] [facility] [address] [place] [id number] Date:Plan Name: 02/25/2018 Kelton Messer Primary DEMETRIO A Oral [id number] State Insurance:MEDICARE TATEDOB: [address] [place] [address], PART A [facility] [id number] Mexico Rehabilitation Center [address]Grl: Number: Repository [id number] (HP) Date:2018-02-10 02/25/2018 Secondary DEMETRIO A Dave Insurance:MEDICAL TATEDOB: [facility] [id number] Hospital Number: Repository [id number] Date:1612-51-49OR [address] [address]GL: 02/25/2018 Tertiary NOT GIVENUNK Dave Insurance:SELF PAY [facility] Number: Effective Repository Date:2018-02-15 02/23/2018 Kelton Messer Primary DEMETRIO A Dave [id number] State Insurance:MEDICARE TATEDOB: [address] [place] [address], PART A [facility] [id number] Mexico Rehabilitation Center [address]Ffz: Number: Repository [id number] (HP) Date:2018-02-23 02/23/2018 Secondary DEMETRIO A Dave Insurance:MEDICAL TATEDOB: [facility] [id number] Hospital Number: Repository [id number] Date:9712-96-20GM[address] [address]GZ: 02/23/2018 Tertiary NOT GIVENUNK Oral Insurance:SELF PAY [facility] Number: Effective Repository Date:2018-02-23 02/10/2018 Kelton Messer Primary DEMETRIO A Oral [id number] State Insurance:MEDICARE TATEDOB: [address] [place] [address], PART A [facility] [id number] Mexico Rehabilitation Center [address]Yvh: Number: Repository [id number] (HP) Date:2018-02-10 02/10/2018 Secondary DEMETRIO A Dave Insurance:MEDICAL TATEDOB: [address]11-15UNK Hospital Number: Repository [id number] Date:0915-95-08[address] [place] [address]VC: 02/10/2018 Tertiary NOT GIVENUNK Oral Insurance:SELF PAY [facility] Number: Effective Repository Date:2018-02-10 01/26/2018 Kelton Messer Primary DEMETRIO A Oral [id number] State Insurance:MEDICARE TATEDOB: [address] [place] [address], PART A [facility] [id number] Mexico Rehabilitation Center [address]Hkt: Number: Repository [id number] (HP) Date:2018-01-22 01/26/2018 Secondary DEMETRIO A Oral Insurance:MEDICAL TATEDOB: [facility] [id number] Hospital Number: Repository [id number] Date:1938-56-15MA [address] [address]TZ: 01/26/2018 Tertiary NOT GIVENUNK Oral Insurance:SELF PAY [facility] Number: Effective Repository Date:2018-01-26 01/25/2018 Kelton F Primary DEMETRIO A Dave [id number] State Insurance:MEDICARE TATEDOB: [address], PART A [facility] [id number] Mexico Rehabilitation Center [address]Znp: Number: Repository [id number] (HP) Date:2018-01-22 01/25/2018 Secondary DEMETRIO A Dave Insurance:MEDICAL TATEDOB: [facility] [id number] Hospital Number: Repository [id number] Date:5118-79-47AB [address] [address]LI: 01/25/2018 Tertiary NOT GIVENUNK Dave Insurance:SELF PAY [facility] Number: Effective Repository Date:2018-01-22 01/08/2018 DEMETRIO A Primary DEMETRIO A Eranwoodrow Jainne TATEDOB: Insurance:MEDICARE TATEDOB: [facility] [id number] [facility] [id number] [place] [address], Number: [address] Repository [place] [id number]: [id number] [place] Date:Plan Name: [id number] () 01/08/2018 Secondary DEMETRIO Devni Caraballo Insurance:MEDICAL TATEDOB: [facility] [id number] Hospital OUTPATIPolicy Number: ST RT Repository [id number] [place] Date:Plan Name: [id number]
== END 2018-10-16 23:59 ==
LOC: WC 11:52
PROVIDERS: Family Provider Family Medicine; PCP Family Medicine; Visit Provider Nurse Practitioner Family
DX: L89.153 Pressure ulcer of sacral region, stage 3 (principal); E78.5 Hyperlipidemia, unspecified; I10 Essential (primary) hypertension; M16.0 Bilateral primary osteoarthritis of hip; Z86.718 Personal history of other venous thrombosis and embolism; Z86.711 Personal history of pulmonary embolism; Z79.01 Long term (current) use of anticoagulants; M06.9 Rheumatoid arthritis, unspecified; Z91.19 Patient's noncompliance with other medical treatment and regimen
CPT/HCPCS: 11042

== ENCOUNTER 2018-11-12 08:37 | Outpatient (RCR) | payer MEDICARE, OTHER, SELFPAY ==
[2018-10-17 00:56] VITALS: BP 146/67; PULSE 93; RESP 16; TEMP 36.2
[2018-11-12 13:14] VITALS: BP 130/64; PULSE 89; RESP 16; TEMP 36.2
--- NOTE | 2018-11-12 13:57 | PCM.WC.PN ---
(1) Stage III pressure ulcer Status: Acute Current Visit: Yes Code(s): L89.93 - Pressure ulcer of unspecified site, stage 3 Comment: coccyx (2) Excoriation of buttock Status: Acute Current Visit: Yes Qualifiers: Code(s): S30.810A - Abrasion of lower back and pelvis, initial encounter (3) Immobility Status: Acute Current Visit: Yes Code(s): Z74.09 - Other reduced mobility (4) Iron (Fe) deficiency anemia Status: Acute Current Visit: No Code(s): D50.9 - Iron deficiency anemia, unspecified (5) Malnutrition Status: Acute Current Visit: Yes Qualifiers: Code(s): E46 - Unspecified protein-calorie malnutrition (6) Amputation of left lower extremity Status: Chronic Current Visit: No Code(s): S88.912A - Complete traumatic amputation of left lower leg, level unspecified, initial encounter (7) Hyperlipidemia Status: Chronic Current Visit: No Code(s): E78.5 - Hyperlipidemia, unspecified (8) Hypertension Status: Chronic Current Visit: No Code(s): I10 - Essential (primary) hypertension Type of Wound Date of Service: 11/12/18 Chief Complaint: stg 3 coccyx since November 2017 History of Wound: Patient presents today to the wound healing center for evaluation and treatment of a stage III pressure wound to her coccyx. She has a past medical history of left rcoaz-uwn-xryz amputee, DVT, PE with long-term Coumadin anticoagulation, anemia, RA and OA. Patient and family believe the wound started around November 2017 due to pressure and constantly sitting in her chair. Her wound has been noted on multiple hospital admissions in the past. Cultures were previously done in January and demonstrated staph, Klebsiella, and Proteus and patient completed Levaquin and ampicillin therapy. The patient has also been in and out of the [facility]. She is currently residing at home with her . Due to her amputation, her mobility is severely limited and she spends most of her time sitting in either her wheelchair or her reclining chair at home. She does have a hospital bed that she just recently started sleeping at night. She does state that she has an excoriated buttocks as well due to having to scoot from her wheelchair to reclining chair and wheelchair to bed. Her wound care thus far has consisted of calmoseptine applied twice daily. Denies any heavy drainage, though does state that the ulcer bleeds at times. Denies any systemic signs of infection at this time. The patient otherwise denies any fever, chills, nausea, vomiting, shortness of breath, chest pain or pressure, palpitations, orthopnea, lower extremity edema, syncope or presyncopal episodes. She denies trying offloading mechanisms at home at this time and does not have a wheelchair cushion. Progress of Wound: Size stable, moderate amount of slough present, no signs of infection, patient doing well with palliative wound care, still has difficulty remaining compliant with offloading. - Physical Exam Vital Signs Temp Pulse Resp BP 97.1 F L 89 16 130/64 H 11/12/18 13:14 11/12/18 13:14 11/12/18 13:14 11/12/18 13:14 General: Alert, Oriented x3, Cooperative, No apparent distress HEENT: Atraumatic Lungs: Clear to auscultation Cardiovascular: Regular rate Abdomen: Soft, Non Tender Skin: Ulcer/ Wound - stage 3 pressure ulcer of coccyx without signs of infection at this time, moderate slough, no drainage Wound Measurements and Assessment WC - Nurse 1 - General Ulcer Measurement Start: 11/12/18 13:14 Freq: Status: Active Protocol: Activity Type Activity Date Activity User E-Sign Co-Sign Detail Recorded Client Recorded Date Recorded By Document 11/12/18 13:31 DV [id number] 11/12/18 13:33 DV 11/12/18 13:31 Wound Center Nurse 1 [Ulcer Assessment] #2 Coccyx -Combined with other wound No -Current Size (cm) - Length 1.5 -Current Size (cm) - Width 1.5 -Current Size (cm) - Depth 0.3 -Total Square Cm 2.25 -Photo Taken No -Epithelialization None Present -Tunneling No -Undermining/Tunneling No -Circular Undermining No -Wound Margin Thickened -Granulation Amt Small (1-33%) -Granulation Quality Pale [place] -Slough/Fibrin Yes -Necrosis Amt Small (1-33%) -Necrotic Tissue Type Adherent Slough -Structure Exposed None/Limited to Skin Breakdown -Texture (Alexus-wound Skin Appearance) No Abnormality Assessed -Moisture (Alexus-wound Skin Appearance No Abnormality ) Assessed -Color (Alexus-wound Skin Appearance) No Abnormality Assessed -Temperature (Alexus-wound Skin No Abnormality Appearance) (Pt Warm) -Tenderness on Palpation (Alexus-wound No Skin Appearance) -Ulcer Cleansing Rinsed/ Irrigated with Saline -Foul Odor after Cleansing No -Anesthetic Used 5% Lidocaine Gel WC - Nurse 2 - General Ulcer CM Notes Start: 11/12/18 13:14 Freq: Status: Active Protocol: Activity Type Activity Date Activity User E-Sign Co-Sign Detail Recorded Client Recorded Date Recorded By Document 11/12/18 13:39 [id number] 11/12/18 13:40 11/12/18 13:39 Wound Center Nurse 2 [Procedure/Treatment] -Time 13:39 -Correct Patient Yes -Correct Side, Site, Position Yes -Correct Procedure Yes -Procedure Performed Yes -Type of Procedure Debridement -Clinical Debridement Subcutaneous -Post Debridement Size (cm) - Length 1.1 -Post Debridement Size (cm) - Width 1.1 -Post Debridement Size (cm) - Depth 0.4 -Total Square Cm 1.21 -Wound/Ulcer Outcome Not Healed -Ulcer Cleansing Not Cleansed -Foul Odor after Cleansing No -Bioengineered Tissue No -Bleeding Controlled with NA -Offloading No -Treatment Response Procedure Tolerated Well [See Physician Procedure note for Specifics] Pain Scale: 0-10 Numeric [Pain] -Is Patient Pain Free? Yes Neurological: Neuro grossly intact Psych/Mental Status: Normal Affect, Appropriate, Alert and oriented to time, place, person, mood and affect Debridement Note Post-Debridement Measurements/Treatment - Nurse 2 - General Ulcer CM Notes Start: 11/12/18 13:14 Freq: Status: Active Protocol: Activity Type Activity Date Activity User E-Sign Co-Sign Detail Recorded Client Recorded Date Recorded By Document 11/12/18 13:39 [id number] 11/12/18 13:40 11/12/18 13:39 Wound Center Nurse 2 #2 Coccyx -Time 13:39 -Correct Patient Yes -Correct Side, Site, Position Yes -Correct Procedure Yes -Procedure Performed Yes -Type of Procedure Debridement -Clinical Debridement Subcutaneous -Post Debridement Size (cm) - Length 1.1 -Post Debridement Size (cm) - Width 1.1 -Post Debridement Size (cm) - Depth 0.4 -Total Square Cm 1.21 -Wound/Ulcer Outcome Not Healed -Ulcer Cleansing Not Cleansed -Foul Odor after Cleansing No -Bioengineered Tissue No -Bleeding Controlled with NA -Offloading No -Treatment Response Procedure Tolerated Well Pain Scale: 0-10 Numeric Is Patient Pain Free? Yes Wound debrided: stage 3 pressure ulcer of coccyx Type of Debridement: Excisional debridement Anesthesia Used: 5% Lidocaine Gel Depth: in the subcutaneous layer Percentage of wound debrided: 100 Instrument Used: 7mm curette Tissue Removed: slough and devitalized tissue Severity: Fat Layer Exposed Amount of bleeding with debridement: Mild Bleeding Controlled with: Pressure Patient tolerated procedure well Assessment/Plan Active Problems Stage III pressure ulcer (Acute) coccyx Excoriation of buttock (Acute) Immobility (Acute) Malnutrition (Acute) Assessment: See above diagnoses Plan: The patient was seen and examined at the wound center today and was updated on the plan of care. A subcutaneous debridement was performed today. The patient tolerated the procedure well. The patients wound care will consist of: isaac and optifoam daily.Patient and daughter agree to continue on a palliative wound plan given the multiple wound care failures and patients multiple comorbidities that interfere with wound healing. Discussed this to patient and daughter. Pt to continue with offloading interventions such as turning q2h in bed at night and offloading when sitting, however she is noncompliant with this. previous cultures collected were negative. Baseline bloodwork reviewed and prealbumin was very low, encouraged the use of high protien drinks and to drink at minimum 3-4 ensure drinks per day, however patient is noncompliant with this. Patient educated on the importance of diet on wound healing and instructed to increase protein and vitamin C intake. Patient verbalized understanding. Due to patient's limited mobility and stage III pressure ulcer, she would benefit from the use of a sliding board and the use of a gel cushion for her wheelchair. Orders for the supplies were given. Patient will follow up at wound healing center in 4 weeks or sooner if needed. This note was generated with [employer] dictation software. It may contain incorrect words, spelling, and punctuation that were not noted in checking the note before signing. Code Visit 111xxx-113xx: 07283 Angie subq tissue 20 sq cm/<
--- NOTE | 2018-11-12 14:02 | PN.PCM_ITS ---
(1) Stage III pressure ulcer Status: Acute Current Visit: Yes Code(s): L89.93 - Pressure ulcer of unspecified site, stage 3 Comment: coccyx (2) Excoriation of buttock Status: Acute Current Visit: Yes Qualifiers: Code(s): S30.810A - Abrasion of lower back and pelvis, initial encounter (3) Immobility Status: Acute Current Visit: Yes Code(s): Z74.09 - Other reduced mobility (4) Iron (Fe) deficiency anemia Status: Acute Current Visit: No Code(s): D50.9 - Iron deficiency anemia, unspecified (5) Malnutrition Status: Acute Current Visit: Yes Qualifiers: Code(s): E46 - Unspecified protein-calorie malnutrition (6) Amputation of left lower extremity Status: Chronic Current Visit: No Code(s): S88.912A - Complete traumatic amputation of left lower leg, level unspecified, initial encounter (7) Hyperlipidemia Status: Chronic Current Visit: No Code(s): E78.5 - Hyperlipidemia, unspecified (8) Hypertension Status: Chronic Current Visit: No Code(s): I10 - Essential (primary) hypertension Type of Wound Date of Service: 11/12/18 Chief Complaint: stg 3 coccyx since November 2017 History of Wound: Patient presents today to the wound healing center for evaluation and treatment of a stage III pressure wound to her coccyx. She has a past medical history of left cpugn-dfc-grty amputee, DVT, PE with long-term Coumadin anticoagulation, anemia, RA and OA. Patient and family believe the wound started around November 2017 due to pressure and constantly sitting in her chair. Her wound has been noted on multiple hospital admissions in the past. Cultures were previously done in January and demonstrated staph, Klebsiella, and Proteus and patient completed Levaquin and ampicillin therapy. The patient has also been in and out of the [facility]. She is currently residing at home with her . Due to her amputation, her mobility is severely limited and she spends most of her time sitting in either her wheelchair or her reclining chair at home. She does have a hospital bed that she just recently started sleeping at night. She does state that she has an excoriated buttocks as well due to having to scoot from her wheelchair to reclining chair and wheelchair to bed. Her wound care thus far has consisted of calmoseptine applied twice daily. Denies any heavy drainage, though does state that the ulcer bleeds at times. Denies any systemic signs of infection at this time. The patient otherwise denies any fever, chills, nausea, vomiting, shortness of breath, chest pain or pressure, palpitations, orthopnea, lower extremity edema, syncope or presyncopal episodes. She denies trying offloading mechanisms at home at this time and does not have a wheelchair cushion. Progress of Wound: Size stable, moderate amount of slough present, no signs of infection, patient doing well with palliative wound care, still has difficulty remaining compliant with offloading. - Physical Exam Vital Signs Temp Pulse Resp BP 97.1 F L 89 16 130/64 H 11/12/18 13:14 11/12/18 13:14 11/12/18 13:14 11/12/18 13:14 General: Alert, Oriented x3, Cooperative, No apparent distress HEENT: Atraumatic Lungs: Clear to auscultation Cardiovascular: Regular rate Abdomen: Soft, Non Tender Skin: Ulcer/ Wound - stage 3 pressure ulcer of coccyx without signs of infection at this time, moderate slough, no drainage Wound Measurements and Assessment WC - Nurse 1 - General Ulcer Measurement Start: 11/12/18 13:14 Freq: Status: Active Protocol: Activity Type Activity Date Activity User E-Sign Co-Sign Detail Recorded Client Recorded Date Recorded By Document 11/12/18 13:31 DV [id number] 11/12/18 13:33 DV 11/12/18 13:31 Wound Center Nurse 1 [Ulcer Assessment] #2 Coccyx -Combined with other wound No -Current Size (cm) - Length 1.5 -Current Size (cm) - Width 1.5 -Current Size (cm) - Depth 0.3 -Total Square Cm 2.25 -Photo Taken No -Epithelialization None Present -Tunneling No -Undermining/Tunneling No -Circular Undermining No -Wound Margin Thickened -Granulation Amt Small (1-33%) -Granulation Quality Pale [place] -Slough/Fibrin Yes -Necrosis Amt Small (1-33%) -Necrotic Tissue Type Adherent Slough -Structure Exposed None/Limited to Skin Breakdown -Texture (Alexus-wound Skin Appearance) No Abnormality Assessed -Moisture (Alexus-wound Skin Appearance No Abnormality ) Assessed -Color (Alexus-wound Skin Appearance) No Abnormality Assessed -Temperature (Alexus-wound Skin No Abnormality Appearance) (Pt Warm) -Tenderness on Palpation (Alexus-wound No Skin Appearance) -Ulcer Cleansing Rinsed/ Irrigated with Saline -Foul Odor after Cleansing No -Anesthetic Used 5% Lidocaine Gel WC - Nurse 2 - General Ulcer CM Notes Start: 11/12/18 13:14 Freq: Status: Active Protocol: Activity Type Activity Date Activity User E-Sign Co-Sign Detail Recorded Client Recorded Date Recorded By Document 11/12/18 13:39 [id number] 11/12/18 13:40 11/12/18 13:39 Wound Center Nurse 2 [Procedure/Treatment] -Time 13:39 -Correct Patient Yes -Correct Side, Site, Position Yes -Correct Procedure Yes -Procedure Performed Yes -Type of Procedure Debridement -Clinical Debridement Subcutaneous -Post Debridement Size (cm) - Length 1.1 -Post Debridement Size (cm) - Width 1.1 -Post Debridement Size (cm) - Depth 0.4 -Total Square Cm 1.21 -Wound/Ulcer Outcome Not Healed -Ulcer Cleansing Not Cleansed -Foul Odor after Cleansing No -Bioengineered Tissue No -Bleeding Controlled with NA -Offloading No -Treatment Response Procedure Tolerated Well [See Physician Procedure note for Specifics] Pain Scale: 0-10 Numeric [Pain] -Is Patient Pain Free? Yes Neurological: Neuro grossly intact Psych/Mental Status: Normal Affect, Appropriate, Alert and oriented to time, place, person, mood and affect Debridement Note Post-Debridement Measurements/Treatment - Nurse 2 - General Ulcer CM Notes Start: 11/12/18 13:14 Freq: Status: Active Protocol: Activity Type Activity Date Activity User E-Sign Co-Sign Detail Recorded Client Recorded Date Recorded By Document 11/12/18 13:39 [id number] 11/12/18 13:40 11/12/18 13:39 Wound Center Nurse 2 #2 Coccyx -Time 13:39 -Correct Patient Yes -Correct Side, Site, Position Yes -Correct Procedure Yes -Procedure Performed Yes -Type of Procedure Debridement -Clinical Debridement Subcutaneous -Post Debridement Size (cm) - Length 1.1 -Post Debridement Size (cm) - Width 1.1 -Post Debridement Size (cm) - Depth 0.4 -Total Square Cm 1.21 -Wound/Ulcer Outcome Not Healed -Ulcer Cleansing Not Cleansed -Foul Odor after Cleansing No -Bioengineered Tissue No -Bleeding Controlled with NA -Offloading No -Treatment Response Procedure Tolerated Well Pain Scale: 0-10 Numeric Is Patient Pain Free? Yes Wound debrided: stage 3 pressure ulcer of coccyx Type of Debridement: Excisional debridement Anesthesia Used: 5% Lidocaine Gel Depth: in the subcutaneous layer Percentage of wound debrided: 100 Instrument Used: 7mm curette Tissue Removed: slough and devitalized tissue Severity: Fat Layer Exposed Amount of bleeding with debridement: Mild Bleeding Controlled with: Pressure Patient tolerated procedure well Assessment/Plan Active Problems Stage III pressure ulcer (Acute) coccyx Excoriation of buttock (Acute) Immobility (Acute) Malnutrition (Acute) Assessment: See above diagnoses Plan: The patient was seen and examined at the wound center today and was updated on the plan of care. A subcutaneous debridement was performed today. The patient tolerated the procedure well. The patients wound care will consist of: isaac and optifoam daily.Patient and daughter agree to continue on a palliative wound plan given the multiple wound care failures and patients multiple comorbidities that interfere with wound healing. Discussed this to patient and daughter. Pt to continue with offloading interventions such as turning q2h in bed at night and offloading when sitting, however she is noncompliant with this. previous cultures collected were negative. Baseline bloodwork reviewed and prealbumin was very low, encouraged the use of high protien drinks and to drink at minimum 3-4 ensure drinks per day, however patient is noncompliant with this. Patient educated on the importance of diet on wound healing and instructed to increase protein and vitamin C intake. Patient verbalized understanding. Due to patient's limited mobility and stage III pressure ulcer, she would benefit from the use of a sliding board and the use of a gel cushion for her wheelchair. Orders for the supplies were given. Patient will follow up at wound healing center in 4 weeks or sooner if needed. This note was generated with [employer] dictation software. It may contain incorrect words, spelling, and punctuation that were not noted in checking the note before signing. Code Visit [id number]: [id number] Angie subq tissue 20 sq cm/<
== END 2018-11-16 23:59 ==
LOC: WC 08:37
PROVIDERS: Family Provider Family Medicine; PCP Family Medicine; Visit Provider Nurse Practitioner Family
DX: L89.153 Pressure ulcer of sacral region, stage 3 (principal); E78.5 Hyperlipidemia, unspecified; I10 Essential (primary) hypertension; M19.90 Unspecified osteoarthritis, unspecified site; M06.9 Rheumatoid arthritis, unspecified; Z86.711 Personal history of pulmonary embolism; Z86.718 Personal history of other venous thrombosis and embolism; Z79.01 Long term (current) use of anticoagulants; Z91.19 Patient's noncompliance with other medical treatment and regimen
CPT/HCPCS: 11042

== ENCOUNTER 2018-12-17 08:34 | Outpatient (RCR) | payer MEDICARE, OTHER, SELFPAY ==
[2018-11-17 00:44] VITALS: BP 130/64; PULSE 89; RESP 16; TEMP 36.2
== END 2018-12-17 23:59 ==
LOC: WC 08:34
PROVIDERS: Family Provider Family Medicine; PCP Family Medicine; Visit Provider Family Medicine
DX: Z09 Encounter for follow-up examination after completed treatment for conditions other than malignant neoplasm (principal)

== ENCOUNTER 2019-01-14 13:00 | Outpatient (RCR) | payer MEDICARE, OTHER, SELFPAY ==
[2018-12-18 01:07] VITALS: BP 130/64; PULSE 89; RESP 16; TEMP 36.2
[2018-12-18 13:02] VITALS: BP 120/57; PULSE 81; RESP 18; TEMP 36.1
--- NOTE | 2018-12-18 16:19 | PCM.WC.HP ---
(1) Stage III pressure ulcer Status: Chronic Current Visit: Yes Qualifiers: Pressure injury location: sacral region Qualified Code(s): L89.153 - Pressure ulcer of sacral region, stage 3 Code(s): L89.93 - Pressure ulcer of unspecified site, stage 3 Comment: coccyx (2) Amputation of left lower extremity Status: Chronic Current Visit: Yes Qualifiers: Encounter type: subsequent encounter Qualified Code(s): S88.912D - Complete traumatic amputation of left lower leg, level unspecified, subsequent encounter Code(s): S88.912A - Complete traumatic amputation of left lower leg, level unspecified, initial encounter (3) Immobility Status: Chronic Current Visit: Yes Code(s): Z74.09 - Other reduced mobility (4) Malnutrition Status: Acute Current Visit: Yes Qualifiers: Protein-calorie malnutrition severity: moderate Code(s): E46 - Unspecified protein-calorie malnutrition (5) Pressure injury of right foot, stage 1 Status: Acute Current Visit: Yes Code(s): L89.891 - Pressure ulcer of other site, stage 1 History of Present Illness Date of Service: 12/18/18 Chief Complaint: Stage III pressure 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 She has a past medical history of left ijcfz-kaf-qfzz amputee, DVT, PE with long-term Coumadin anticoagulation, anemia, RA and OA. Patient and family believe the wound started around November 2017 due to pressure and constantly sitting in her chair. Her wound has been noted on multiple hospital admissions in the past. Cultures were previously done in January 2018 and demonstrated staph, Klebsiella, and Proteus and patient completed Levaquin and ampicillin therapy. The patient has also been in and out of the skilled nursing. She is currently residing at home with her . Due to her amputation, her mobility is severely limited and she spends most of her time sitting in either her wheelchair or her reclining chair at home. She does have a hospital bed that she sleeps in at night. She does state that she has an excoriated buttocks as well due to having to scoot from her wheelchair to reclining chair and wheelchair to bed. She has been using Isaac for dressing the wound and is on a palliative traetment plan. She usually follows with Wilbur Gallagher CNP but had to reschedule due to weather. Denies any heavy drainage, though does state that the ulcer bleeds at times. Denies any systemic signs of infection at this time. The patient otherwise denies any fever, chills, nausea, vomiting, shortness of breath, chest pain or pressure, palpitations, orthopnea, lower extremity edema, syncope or presyncopal episodes. Past Medical History Past Medical History: Chronic Problems Stage III pressure ulcer (Chronic) coccyx Amputation of left lower extremity (Chronic) Immobility (Chronic) Osteoporosis (Chronic) Hypothyroidism (Chronic) Warfarin-induced coagulopathy (Chronic) hx VT-chronic Hypertension (Chronic) DVT (deep venous thrombosis) (Chronic) Hyperlipidemia (Chronic) Osteoarthritis of hips, bilateral (Chronic) Surgical History: cholecystectomy, total hip arthroplasty - Bilateral., total knee arthroplasty - Left., - - D&C, imxzi-beg-voca 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 Allergies/Adverse Reactions: Allergies amoxicillin [From Augmentin] Allergy (Verified 06/29/18 19:33) Hives azathioprine [From Imuran] Allergy (Verified 06/29/18 19:33) Hives ceftriaxone Allergy (Verified 06/29/18 19:33) Hives celecoxib Allergy (Verified 06/29/18 19:33) Hives clavulanic acid [From Augmentin] Allergy (Verified 06/29/18 19:33) Hives etodolac Allergy (Verified 06/29/18 19:33) Hives methotrexate Allergy (Verified 06/29/18 19:33) effect to liver NSAIDS (Non-Steroidal Anti-Inflamma Allergy (Verified 06/29/18 19:33) Hives Penicillins Allergy (Verified 06/29/18 19:33) Hives sulfamethoxazole Allergy (Verified 06/29/18 19:33) Hives arthritis medications Allergy (Uncoded 02/23/18 09:38) effected the liver Home Medications: Ambulatory Orders Medication Instructions Recorded Levothyroxine [Synthroid] 75 mcg PO DAILY 07/28/16 Lisinopril [Zestril] 40 mg PO DAILY 07/28/16 Simvastatin [Zocor] 20 mg PO QHS 07/28/16 Warfarin [Coumadin] 0.5 mg PO DAILY 07/28/16 Amlodipine [Norvasc] 5 mg PO DAILY 01/25/18 Hydrocodone Bitart/Apap 5-325 1 tablet PO Q6H PRN PRN 01/25/18 [[place] 5MG-325MG] Iron Polysaccharide Complex 150 mg PO DAILYCM 01/25/18 [Ferrex 150] Mometasone Furoate [Elocon] 15 gm TP DAILY 05/07/18 - Family History Maternal No pertinent history Paternal No pertinent history Lives: Spouse/ Significant Other Smoking Status: Never smoker Tobacco Use: Non-smoker Alcohol: None Drugs: None Review of Systems Constitutional: Denies: Chills, Fever, Weight Change Eyes: Denies: Pain, Vision Change HEENT: Denies: Difficulty Hearing, Difficulty Swallowing, Sinus Congestion Cardiovascular: Denies: Chest Pain, Palpitations Respiratory: Denies: Cough, Shortness of Breath Gastrointestinal: Denies: Diarrhea, Nausea, Vomiting Genitourinary: Denies: Dysuria, Hematuria Musculoskeletal: Reports: Back Pain Skin: Reports: Wounds Endocrine: Denies: Heat/ Cold Intolerance, Polydipsia, Polyuria Hematologic/ Lymphatic: Reports: Easy Bruising, Easy Bleeding - Physical Exam Vital Signs Temp Pulse Resp BP 97 F L 81 18 120/57 L 12/18/18 13:02 12/18/18 13:02 12/18/18 13:02 12/18/18 13:02 General: Alert, Oriented x3, Cooperative, No apparent distress HEENT: Atraumatic, Normocephalic Oral: Moist Mucosa Neck: Supple Lungs: Clear to auscultation Abdomen: Soft, Non Tender Extremities: No edema Skin: Ulcer/ Wound, - - 0.5 cm x 1.0 cm area of erythema over the dorsum of foot superior to right great toe c/w pressure injury Wound Measurements and Assessment WC - Nurse 1 - General Ulcer Measurement Start: 12/18/18 12:59 Freq: Status: Active Protocol: Activity Type Activity Date Activity User E-Sign Co-Sign Detail Recorded Client Recorded Date Recorded By Document 12/18/18 13:02 RACHELE [id number] 12/18/18 13:15 RB 12/18/18 13:02 Wound Center Nurse 1 [Ulcer Assessment] #3 Coccyx -Combined with other wound No -Current Size (cm) - Length 1.5 -Current Size (cm) - Width 1.5 -Current Size (cm) - Depth 0.4 -Total Square Cm 2.25 -Photo Taken No -Tunneling No -Undermining/Tunneling No -Circular Undermining No -Exudate Amt Small -Exudate Type Serosanguineous -Wound Margin Distinct, Outline Attached -Granulation Amt Large (67-100%) -Granulation Quality [address] Flat -Slough/Fibrin Yes -Necrosis Amt Small (1-33%) -Necrotic Tissue Type Adherent Slough -Structure Exposed N/A -Texture (Alexus-wound Skin Appearance) Assessed -Moisture (Alexus-wound Skin Appearance Maceration ) -Color (Alexus-wound Skin Appearance) Assessed -Temperature (Alexus-wound Skin No Abnormality Appearance) (Pt Warm) -Tenderness on Palpation (Alexus-wound No Skin Appearance) -Ulcer Cleansing Rinsed/ Irrigated with Saline -Foul Odor after Cleansing No -Anesthetic Used 5% Lidocaine Gel WC - Nurse 2 - General Ulcer CM Notes Start: 12/18/18 12:59 Freq: Status: Active Protocol: Activity Type Activity Date Activity User E-Sign Co-Sign Detail Recorded Client Recorded Date Recorded By Document 12/18/18 13:55 MW [id number] 12/18/18 14:02 MW 12/18/18 13:55 Wound Center Nurse 2 [Procedure/Treatment] -Time 13:57 -Correct Patient Yes -Correct Side, Site, Position Yes -Correct Procedure Yes -Procedure Performed Yes -Type of Procedure Debridement -Clinical Debridement Subcutaneous -Post Debridement Size (cm) - Length 1.4 -Post Debridement Size (cm) - Width 1.5 -Post Debridement Size (cm) - Depth 0.3 -Total Square Cm 2.10 -Wound/Ulcer Outcome Not Healed -Ulcer Cleansing Rinsed/ Irrigated with Saline -Foul Odor after Cleansing No -Bioengineered Tissue No -Bleeding Controlled with Pressure -Offloading No -Treatment Response Procedure Tolerated Well [See Physician Procedure note for Specifics] Pain Scale: 0-10 Numeric [Pain] -Is Patient Pain Free? Yes Psych/Mental Status: Normal Affect, Appropriate Debridement Note Post-Debridement Measurements/Treatment WC - Nurse 2 - General Ulcer CM Notes Start: 12/18/18 12:59 Freq: Status: Active Protocol: Activity Type Activity Date Activity User E-Sign Co-Sign Detail Recorded Client Recorded Date Recorded By Document 12/18/18 13:55 MW [id number] 12/18/18 14:02 MW 12/18/18 13:55 Wound Center Nurse 2 #3 Coccyx -Time 13:57 -Correct Patient Yes -Correct Side, Site, Position Yes -Correct Procedure Yes -Procedure Performed Yes -Type of Procedure Debridement -Clinical Debridement Subcutaneous -Post Debridement Size (cm) - Length 1.4 -Post Debridement Size (cm) - Width 1.5 -Post Debridement Size (cm) - Depth 0.3 -Total Square Cm 2.10 -Wound/Ulcer Outcome Not Healed -Ulcer Cleansing Rinsed/ Irrigated with Saline -Foul Odor after Cleansing No -Bioengineered Tissue No -Bleeding Controlled with Pressure -Offloading No -Treatment Response Procedure Tolerated Well Pain Scale: 0-10 Numeric Is Patient Pain Free? Yes Wound debrided: coccyx Laterality: Not Applicable Wound Grade/Stage: Stage 3 Type of Debridement: Excisional debridement Anesthesia Used: 4% Lidocaine Solution, 5% Lidocaine Gel Depth: Down to and including healthy tissue, in the subcutaneous layer Percentage of wound debrided: 100 Instrument Used: 5mm curette Tissue Removed: yellow slough, devitalized tissue Severity: Fat Layer Exposed Amount of bleeding with debridement: Mild Bleeding Controlled with: Compression and gauze Patient tolerated procedure well Assessment/Plan Active Problems Stage III pressure ulcer (Chronic) coccyx Amputation of left lower extremity (Chronic) Immobility (Chronic) Malnutrition (Acute) Pressure injury of right foot, stage 1 (Acute) Assessment: See above diagnoses Plan: The patient was seen and examined at the wound center today. A subcutaneous debridement was performed today. The patient tolerated the procedure well. The patients wound care will consist of: isaac and optifoam daily. Advised to offload pressure to right dorsal foot. Avoid shoes, wear slipper socks with sales data analyst on soles. Patient and daughter agree to continue on a palliative wound plan given the multiple wound care failures and patients multiple comorbidities that interfere with wound healing. Discussed this with patient and daughter. Pt to continue with offloading interventions such as turning q2h in bed at night and offloading when sitting, however she is noncompliant with this. previous cultures collected were negative. Baseline bloodwork reviewed and prealbumin was very low, encouraged the use of high protien drinks and to drink at minimum 3-4 ensure drinks per day, however patient is noncompliant with this. Patient educated on the importance of diet on wound healing and instructed to increase protein and vitamin C intake. Patient verbalized understanding. Due to patient's limited mobility and stage III pressure ulcer, she would benefit from the use of a sliding board and the use of a gel cushion for her wheelchair. Orders for the supplies were given. Patient will follow up at wound healing center in 4 weeks or sooner if needed. This note was generated with [employer] dictation software. It may contain incorrect words, spelling, and punctuation that were not noted in checking the note before signing.
--- NOTE | 2018-12-18 16:23 | HP.PCM_ITS ---
(1) Stage III pressure ulcer Status: Chronic Current Visit: Yes Qualifiers: Pressure injury location: sacral region Qualified Code(s): L89.153 - Pressure ulcer of sacral region, stage 3 Code(s): L89.93 - Pressure ulcer of unspecified site, stage 3 Comment: coccyx (2) Amputation of left lower extremity Status: Chronic Current Visit: Yes Qualifiers: Encounter type: subsequent encounter Qualified Code(s): S88.912D - Complete traumatic amputation of left lower leg, level unspecified, subsequent encounter Code(s): S88.912A - Complete traumatic amputation of left lower leg, level unspecified, initial encounter (3) Immobility Status: Chronic Current Visit: Yes Code(s): Z74.09 - Other reduced mobility (4) Malnutrition Status: Acute Current Visit: Yes Qualifiers: Protein-calorie malnutrition severity: moderate Code(s): E46 - Unspecified protein-calorie malnutrition (5) Pressure injury of right foot, stage 1 Status: Acute Current Visit: Yes Code(s): L89.891 - Pressure ulcer of other site, stage 1 History of Present Illness Date of Service: 12/18/18 Chief Complaint: Stage III pressure 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 She has a past medical history of left eruwv-[id number] amputee, DVT, PE with long-term Coumadin anticoagulation, anemia, RA and OA. Patient and family believe the wound started around November 2017 due to pressure and constantly sitting in her chair. Her wound has been noted on multiple hospital admissions in the past. Cultures were previously done in January 2018 and demonstrated staph, Klebsiella, and Proteus and patient completed Levaquin and ampicillin therapy. The patient has also been in and out of the [facility]. She is currently residing at home with her . Due to her amputation, her mobility is severely limited and she spends most of her time sitting in either her wheelchair or her reclining chair at home. She does have a hospital bed that she sleeps in at night. She does state that she has an excoriated buttocks as well due to having to scoot from her wheelchair to reclining chair and wheelchair to bed. She has been using Isaac for dressing the wound and is on a palliative traetment plan. She usually follows with Wilbur Gallagher CNP but had to reschedule due to weather. Denies any heavy drainage, though does state that the ulcer bleeds at times. Denies any systemic signs of infection at this time. The patient otherwise denies any fever, chills, nausea, vomiting, shortness of breath, chest pain or pressure, palpitations, orthopnea, lower extremity edema, syncope or presyncopal episodes. Past Medical History Past Medical History: Chronic Problems Stage III pressure ulcer (Chronic) coccyx Amputation of left lower extremity (Chronic) Immobility (Chronic) Osteoporosis (Chronic) Hypothyroidism (Chronic) Warfarin-induced coagulopathy (Chronic) hx VT-chronic Hypertension (Chronic) DVT (deep venous thrombosis) (Chronic) Hyperlipidemia (Chronic) Osteoarthritis of hips, bilateral (Chronic) Surgical History: cholecystectomy, total hip arthroplasty - Bilateral., total knee arthroplasty - Left., - - D&C, [id number] 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 Allergies/Adverse Reactions: Allergies amoxicillin [From Augmentin] Allergy (Verified 06/29/18 19:33) Hives azathioprine [From Imuran] Allergy (Verified 06/29/18 19:33) Hives ceftriaxone Allergy (Verified 06/29/18 19:33) Hives celecoxib Allergy (Verified 06/29/18 19:33) Hives clavulanic acid [From Augmentin] Allergy (Verified 06/29/18 19:33) Hives etodolac Allergy (Verified 06/29/18 19:33) Hives methotrexate Allergy (Verified 06/29/18 19:33) effect to liver NSAIDS (Non-Steroidal Anti-Inflamma Allergy (Verified 06/29/18 19:33) Hives Penicillins Allergy (Verified 06/29/18 19:33) Hives sulfamethoxazole Allergy (Verified 06/29/18 19:33) Hives arthritis medications Allergy (Uncoded 02/23/18 09:38) effected the liver Home Medications: Ambulatory Orders Medication Instructions Recorded Levothyroxine [Synthroid] 75 mcg PO DAILY 07/28/16 Lisinopril [Zestril] 40 mg PO DAILY 07/28/16 Simvastatin [Zocor] 20 mg PO QHS 07/28/16 Warfarin [Coumadin] 0.5 mg PO DAILY 07/28/16 Amlodipine [Norvasc] 5 mg PO DAILY 01/25/18 Hydrocodone Bitart/Apap 5-325 1 tablet PO Q6H PRN PRN 01/25/18 [[place] 5MG-325MG] Iron Polysaccharide Complex 150 mg PO DAILYCM 01/25/18 [Ferrex 150] Mometasone Furoate [Elocon] 15 gm TP DAILY 05/07/18 - Family History Maternal No pertinent history Paternal No pertinent history Lives: Spouse/ Significant Other Smoking Status: Never smoker Tobacco Use: Non-smoker Alcohol: None Drugs: None Review of Systems Constitutional: Denies: Chills, Fever, Weight Change Eyes: Denies: Pain, Vision Change HEENT: Denies: Difficulty Hearing, Difficulty Swallowing, Sinus Congestion Cardiovascular: Denies: Chest Pain, Palpitations Respiratory: Denies: Cough, Shortness of Breath Gastrointestinal: Denies: Diarrhea, Nausea, Vomiting Genitourinary: Denies: Dysuria, Hematuria Musculoskeletal: Reports: Back Pain Skin: Reports: Wounds Endocrine: Denies: Heat/ Cold Intolerance, Polydipsia, Polyuria Hematologic/ Lymphatic: Reports: Easy Bruising, Easy Bleeding - Physical Exam Vital Signs Temp Pulse Resp BP 97 F L 81 18 120/57 L 12/18/18 13:02 12/18/18 13:02 12/18/18 13:02 12/18/18 13:02 General: Alert, Oriented x3, Cooperative, No apparent distress HEENT: Atraumatic, Normocephalic Oral: Moist Mucosa Neck: Supple Lungs: Clear to auscultation Abdomen: Soft, Non Tender Extremities: No edema Skin: Ulcer/ Wound, - - 0.5 cm x 1.0 cm area of erythema over the dorsum of foot superior to right great toe c/w pressure injury Wound Measurements and Assessment WC - Nurse 1 - General Ulcer Measurement Start: 12/18/18 12:59 Freq: Status: Active Protocol: Activity Type Activity Date Activity User E-Sign Co-Sign Detail Recorded Client Recorded Date Recorded By Document 12/18/18 13:02 RACHELE [id number] 12/18/18 13:15 RB 12/18/18 13:02 Wound Center Nurse 1 [Ulcer Assessment] #3 Coccyx -Combined with other wound No -Current Size (cm) - Length 1.5 -Current Size (cm) - Width 1.5 -Current Size (cm) - Depth 0.4 -Total Square Cm 2.25 -Photo Taken No -Tunneling No -Undermining/Tunneling No -Circular Undermining No -Exudate Amt Small -Exudate Type Serosanguineous -Wound Margin Distinct, Outline Attached -Granulation Amt Large (67-100%) -Granulation Quality [place] -Slough/Fibrin Yes -Necrosis Amt Small (1-33%) -Necrotic Tissue Type Adherent Slough -Structure Exposed N/A -Texture (Alexus-wound Skin Appearance) Assessed -Moisture (Alexus-wound Skin Appearance Maceration ) -Color (Alexus-wound Skin Appearance) Assessed -Temperature (Alexus-wound Skin No Abnormality Appearance) (Pt Warm) -Tenderness on Palpation (Alexus-wound No Skin Appearance) -Ulcer Cleansing Rinsed/ Irrigated with Saline -Foul Odor after Cleansing No -Anesthetic Used 5% Lidocaine Gel WC - Nurse 2 - General Ulcer CM Notes Start: 12/18/18 12:59 Freq: Status: Active Protocol: Activity Type Activity Date Activity User E-Sign Co-Sign Detail Recorded Client Recorded Date Recorded By Document 12/18/18 13:55 MW [id number] 12/18/18 14:02 MW 12/18/18 13:55 Wound Center Nurse 2 [Procedure/Treatment] -Time 13:57 -Correct Patient Yes -Correct Side, Site, Position Yes -Correct Procedure Yes -Procedure Performed Yes -Type of Procedure Debridement -Clinical Debridement Subcutaneous -Post Debridement Size (cm) - Length 1.4 -Post Debridement Size (cm) - Width 1.5 -Post Debridement Size (cm) - Depth 0.3 -Total Square Cm 2.10 -Wound/Ulcer Outcome Not Healed -Ulcer Cleansing Rinsed/ Irrigated with Saline -Foul Odor after Cleansing No -Bioengineered Tissue No -Bleeding Controlled with Pressure -Offloading No -Treatment Response Procedure Tolerated Well [See Physician Procedure note for Specifics] Pain Scale: 0-10 Numeric [Pain] -Is Patient Pain Free? Yes Psych/Mental Status: Normal Affect, Appropriate Debridement Note Post-Debridement Measurements/Treatment WC - Nurse 2 - General Ulcer CM Notes Start: 12/18/18 12:59 Freq: Status: Active Protocol: Activity Type Activity Date Activity User E-Sign Co-Sign Detail Recorded Client Recorded Date Recorded By Document 12/18/18 13:55 MW [id number] 12/18/18 14:02 MW 12/18/18 13:55 Wound Center Nurse 2 #3 Coccyx -Time 13:57 -Correct Patient Yes -Correct Side, Site, Position Yes -Correct Procedure Yes -Procedure Performed Yes -Type of Procedure Debridement -Clinical Debridement Subcutaneous -Post Debridement Size (cm) - Length 1.4 -Post Debridement Size (cm) - Width 1.5 -Post Debridement Size (cm) - Depth 0.3 -Total Square Cm 2.10 -Wound/Ulcer Outcome Not Healed -Ulcer Cleansing Rinsed/ Irrigated with Saline -Foul Odor after Cleansing No -Bioengineered Tissue No -Bleeding Controlled with Pressure -Offloading No -Treatment Response Procedure Tolerated Well Pain Scale: 0-10 Numeric Is Patient Pain Free? Yes Wound debrided: coccyx Laterality: Not Applicable Wound Grade/Stage: Stage 3 Type of Debridement: Excisional debridement Anesthesia Used: 4% Lidocaine Solution, 5% Lidocaine Gel Depth: Down to and including healthy tissue, in the subcutaneous layer Percentage of wound debrided: 100 Instrument Used: 5mm curette Tissue Removed: yellow slough, devitalized tissue Severity: Fat Layer Exposed Amount of bleeding with debridement: Mild Bleeding Controlled with: Compression and gauze Patient tolerated procedure well Assessment/Plan Active Problems Stage III pressure ulcer (Chronic) coccyx Amputation of left lower extremity (Chronic) Immobility (Chronic) Malnutrition (Acute) Pressure injury of right foot, stage 1 (Acute) Assessment: See above diagnoses Plan: The patient was seen and examined at the wound center today. A subcutaneous debridement was performed today. The patient tolerated the procedure well. The patients wound care will consist of: isaac and optifoam daily. Advised to offload pressure to right dorsal foot. Avoid shoes, wear slipper socks with switch coupler on soles. Patient and daughter agree to continue on a palliative wound plan given the multiple wound care failures and patients multiple comorbidities that interfere with wound healing. Discussed this with patient and daughter. Pt to continue with offloading interventions such as turning q2h in bed at night and offloading when sitting, however she is noncompliant with this. previous cultures collected were negative. Baseline bloodwork reviewed and prealbumin was very low, encouraged the use of high prot ien drinks and to drink at minimum 3-4 ensure drinks per day, however patient is noncompliant with this. Patient educated on the importance of diet on wound healing and instructed to increase protein and vitamin C intake. Patient verbalized understanding. Due to patient's limited mobility and stage III pressure ulcer, she would benefit from the use of a sliding board and the use of a gel cushion for her wheelchair. Orders for the supplies were given. Patient will follow up at wound healing center in 4 weeks or sooner if needed. This note was generated with [employer] dictation software. It may contain incorrect words, spelling, and punctuation that were not noted in checking the note before signing.
[2019-01-14 12:56] VITALS: BP 125/48; PULSE 80; RESP 16; TEMP 36.6
--- NOTE | 2019-01-14 16:43 | PCM.WC.PN ---
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 Qualifiers: Encounter type: subsequent encounter Qualified Code(s): S88.912D - Complete traumatic amputation of left lower leg, level unspecified, subsequent encounter Code(s): S88.912A - Complete traumatic amputation of left lower leg, level unspecified, initial encounter (6) Hypertension Status: Chronic Code(s): I10 - Essential (primary) hypertension (7) Immobility Status: Chronic Code(s): Z74.09 - Other reduced mobility Type of Wound Date of Service: 01/14/19 Chief Complaint: Stage III pressure 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 She has a past medical history of left fatjl-xks-jzno amputee, DVT, PE with long-term Coumadin anticoagulation, anemia, RA and OA. Patient and family believe the wound started around November 2017 due to pressure and constantly sitting in her chair. Her wound has been noted on multiple hospital admissions in the past. Cultures were previously done in January 2018 and demonstrated staph, Klebsiella, and Proteus and patient completed Levaquin and ampicillin therapy. The patient has also been in and out of the [facility]. She is currently residing at home with her . Due to her amputation, her mobility is severely limited and she spends most of her time sitting in either her wheelchair or her reclining chair at home. She does have a hospital bed that she sleeps in at night. She does state that she has an excoriated buttocks as well due to having to scoot from her wheelchair to reclining chair and wheelchair to bed. She has been using Isaac for dressing the wound and is on a palliative traetment plan. She usually follows with Wilbur Gallagher CNP but had to reschedule due to weather. Denies any heavy drainage, though does state that the ulcer bleeds at times. Denies any systemic signs of infection at this time. The patient otherwise denies any fever, chills, nausea, vomiting, shortness of breath, chest pain or pressure, palpitations, orthopnea, lower extremity edema, syncope or presyncopal episodes. Progress of Wound: Size stable, moderate amount of slough present, no signs of infection, patient doing well with palliative wound care, still has difficulty remaining compliant with offloading. Patient's pressure injury to her right foot is epithelialized without any signs of infection at this time. - Physical Exam Vital Signs Temp Pulse Resp BP 98 F 80 16 125/48 H 01/14/19 12:56 01/14/19 12:56 01/14/19 12:56 01/14/19 12:56 General: Alert, Oriented x3, Cooperative, No apparent distress HEENT: Atraumatic Oral: Moist Mucosa Lungs: Clear to auscultation, Normal air movement, No rhonchi, No wheeze, No rales Cardiovascular: Regular rate, Regular Rhythm Abdomen: Soft, Non Tender Extremities: No clubbing, No cyanosis, - - Left lower extremity amputation Skin: Ulcer/ Wound - Stage III sacral pressure ulcer on coccyx with adherent slough to wound bed, no signs of infection at this time. No purulent drainage, redness, streaking, or warmth. Wound Measurements and Assessment WC - Nurse 1 - General Ulcer Measurement Start: 12/18/18 12:59 Freq: Status: Active Protocol: Activity Type Activity Date Activity User E-Sign Co-Sign Detail Recorded Client Recorded Date Recorded By Document 01/14/19 12:56 [facility] [id number] 01/14/19 12:59 [facility] 01/14/19 12:56 Wound Center Nurse 1 [Ulcer Assessment] #3 Coccyx -Combined with other wound No -Current Size (cm) - Length 2 -Current Size (cm) - Width 1.4 -Current Size (cm) - Depth 0.3 -Total Square Cm 2.8 -Date of Last Picture (Recall this 01/14/19 field) -Photo Taken Yes -Epithelialization None Present -Tunneling No -Undermining/Tunneling No -Circular Undermining No -Exudate Amt None Present -Wound Margin Thickened -Granulation Amt Small (1-33%) -Granulation Quality Red -Slough/Fibrin Yes -Necrosis Amt Large (67-100%) -Necrotic Tissue Type Adherent Slough -Texture (Alexus-wound Skin Appearance) Assessed Scarring -Moisture (Alexus-wound Skin Appearance Assessed ) -Color (Alexus-wound Skin Appearance) Assessed Erythema -Temperature (Alexus-wound Skin No Abnormality Appearance) (Pt Warm) -Tenderness on Palpation (Alexus-wound Yes Skin Appearance) -Ulcer Cleansing Rinsed/ Irrigated with Saline -Foul Odor after Cleansing No -Anesthetic Used 5% Lidocaine Gel WC - Nurse 2 - General Ulcer CM Notes Start: 12/18/18 12:59 Freq: Status: Active Protocol: Activity Type Activity Date Activity User E-Sign Co-Sign Detail Recorded Client Recorded Date Recorded By Document 01/14/19 13:32 DV [id number] 01/14/19 13:36 DV 01/14/19 13:32 Wound Center Nurse 2 [Procedure/Treatment] -Time 13:33 -Correct Patient Yes -Correct Side, Site, Position Yes -Correct Procedure Yes -Procedure Performed Yes -Type of Procedure Debridement -Clinical Debridement Subcutaneous -Post Debridement Size (cm) - Length 1.4 -Post Debridement Size (cm) - Width 1.5 -Post Debridement Size (cm) - Depth 0.4 -Total Square Cm 2.10 -Wound/Ulcer Outcome Not Healed -Ulcer Cleansing Rinsed/ Irrigated with Saline -Foul Odor after Cleansing No -Bioengineered Tissue No -Bleeding Controlled with Silver Nitrate -Offloading Yes -Treatment Response Procedure Tolerated Well [See Physician Procedure note for Specifics] Pain Scale: 0-10 Numeric [Pain] -Is Patient Pain Free? Yes Neurological: Neuro grossly intact Psych/Mental Status: Normal Affect, Appropriate, Alert and oriented to time, place, person, mood and affect Debridement Note Post-Debridement Measurements/Treatment WC - Nurse 2 - General Ulcer CM Notes Start: 12/18/18 12:59 Freq: Status: Active Protocol: Activity Type Activity Date Activity User E-Sign Co-Sign Detail Recorded Client Recorded Date Recorded By Document 12/18/18 13:55 MW [id number] 12/18/18 14:02 MW Document 01/14/19 13:32 DV [id number] 01/14/19 13:36 DV 12/18/18 01/14/19 13:55 13:32 Wound Center Nurse 2 #3 Coccyx -Time 13:57 13:33 -Correct Patient Yes Yes -Correct Side, Site, Position Yes Yes -Correct Procedure Yes Yes -Procedure Performed Yes Yes -Type of Procedure Debridement Debridement -Clinical Debridement Subcutaneous Subcutaneous -Post Debridement Size (cm) - Length 1.4 1.4 -Post Debridement Size (cm) - Width 1.5 1.5 -Post Debridement Size (cm) - Depth 0.3 0.4 -Total Square Cm 2.10 2.10 -Wound/Ulcer Outcome Not Healed Not Healed -Ulcer Cleansing Rinsed/ Rinsed/ Irrigated with Irrigated with Saline Saline -Foul Odor after Cleansing No No -Bioengineered Tissue No No -Bleeding Controlled with Pressure Silver Nitrate -Offloading No Yes -Treatment Response Procedure Procedure Tolerated Well Tolerated Well Pain Scale: 0-10 Numeric Is Patient Pain Free? Yes Yes Wound debrided: Stage III pressure ulcer sacrum Type of Debridement: Excisional debridement Anesthesia Used: 5% Lidocaine Gel Depth: in the subcutaneous layer Percentage of wound debrided: 100 Instrument Used: 5mm curette Tissue Removed: Slough and devitalized tissue Severity: Fat Layer Exposed Amount of bleeding with debridement: Mild Bleeding Controlled with: Pressure Patient tolerated procedure well Assessment/Plan Assessment: See above diagnoses Plan: The patient was seen and examined at the wound center today. A subcutaneous debridement was performed today. The patient tolerated the procedure well. The patients wound care will consist of: isaac and optifoam daily. Patient and daughter agree to continue on a palliative wound plan given the multiple wound care failures and patients multiple comorbidities that interfere with wound healing. Discussed this with patient and daughter. Pt to continue with offloading interventions such as turning q2h in bed at night and offloading when sitting, however she is noncompliant with this. previous cultures collected were negative. Baseline bloodwork reviewed and prealbumin was very low, encouraged the use of high protien drinks and to drink at minimum 3-4 ensure drinks per day, however patient is noncompliant with this. Patient educated on the importance of diet on wound healing and instructed to increase protein and vitamin C intake. Patient verbalized understanding. Due to patient's limited mobility and stage III pressure ulcer, she would benefit from the use of a sliding board and the use of a gel cushion for her wheelchair. Orders for the supplies were given. Patient will follow up at wound healing center in 4 weeks or sooner if needed. This note was generated with [employer] dictation software. It may contain incorrect words, spelling, and punctuation that were not noted in checking the note before signing. Code Visit [id number]: [id number] Angie subq tissue 20 sq cm/<
--- NOTE | 2019-01-15 16:48 | PN.PCM_ITS ---
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 Qualifiers: Encounter type: subsequent encounter Qualified Code(s): S88.912D - Complete traumatic amputation of left lower leg, level unspecified, subsequent encounter Code(s): S88.912A - Complete traumatic amputation of left lower leg, level un specified, initial encounter (6) Hypertension Status: Chronic Code(s): I10 - Essential (primary) hypertension (7) Immobility Status: Chronic Code(s): Z74.09 - Other reduced mobility Type of Wound Date of Service: 01/14/19 Chief Complaint: Stage III pressure ulcer of coccyx since November 2017 History of Wound: Patient presents today to the wound healing center for last luation and treatment of a stage III pressure wound to her coccyx. She has a past medical history of left [id number] amputee, DVT, PE with long-term Coumadin anticoagulation, anemia, RA and OA. Patient and family believe the wound started around November 2017 due to pressure and constantly sitting in her chair. Her wound has been noted on multiple hospital admissions in the past. Cultures were previously done in January 2018 and demonstrated staph, Klebsiella, and Proteus and patient completed Levaquin and ampicillin therapy. The patient has also been in and out of the [facility]. She is currently residing at home with her . Due to her amputation, her mobility is severely limited and she spends most of her time sitting in either her wheelchair or her reclining chair at home. She does have a hospital bed that she sleeps in at night. She does state that she has an excoriated buttocks as well due to having to scoot from her wheelchair to reclining chair and wheelchair to bed. She has been using Isaac for dressing the wound and is on a palliative traetment plan. She usually follows with Wilbur Gallagher CNP but had to reschedule due to weather. Denies any heavy drainage, though does state that the ulcer bleeds at times. Denies any systemic signs of infection at this time. The patient otherwise denies any fever, chills, nausea, vomiting, shortness of breath, chest pain or pressure, palpitations, orthopnea, lower extremity edema, syncope or presyncopal episodes. Progress of Wound: Size stable, moderate amount of slough present, no signs of infection, patient doing well with palliative wound care, still has difficulty remaining compliant with offloading. Patient's pressure injury to her right foot is epithelialized without any signs of infection at this time. - Physical Exam Vital Signs Temp Pulse Resp BP 98 F 80 16 125/48 H 01/14/19 12:56 01/14/19 12:56 01/14/19 12:56 01/14/19 12:56 General: Alert, Oriented x3, Cooperative, No apparent distress HEENT: Atraumatic Oral: Moist Mucosa Lungs: Clear to auscultation, Normal air movement, No rhonchi, No wheeze, No rales Cardiovascular: Regular rate, Regular Rhythm Abdomen: Soft, Non Tender Extremities: No clubbing, No cyanosis, - - Left lower extremity amputation Skin: Ulcer/ Wound - Stage III sacral pressure ulcer on coccyx with adherent slough to wound bed, no signs of infection at this time. No purulent drainage, redness, streaking, or warmth. Wound Measurements and Assessment WC - Nurse 1 - General Ulcer Measurement Start: 12/18/18 12:59 Freq: Status: Active Protocol: Activity Type Activity Date Activity User E-Sign Co-Sign Detail Recorded Client Recorded Date Recorded By Document 01/14/19 12:56 [facility] [id number] 01/14/19 12:59 [facility] 01/14/19 12:56 Wound Center Nurse 1 [Ulcer Assessment] #3 Coccyx -Combined with other wound No -Current Size (cm) - Length 2 -Current Size (cm) - Width 1.4 -Current Size (cm) - Depth 0.3 -Total Square Cm 2.8 -Date of Last Picture (Recall this 01/14/19 field) -Photo Taken Yes -Epithelialization None Present -Tunneling No -Undermining/Tunneling No -Circular Undermining No -Exudate Amt None Present -Wound Margin Thickened -Granulation Amt Small (1-33%) -Granulation Quality Red -Slough/Fibrin Yes -Necrosis Amt Large (67-100%) -Necrotic Tissue Type Adherent Slough -Texture (Alexus-wound Skin Appearance) Assessed Scarring -Moisture (Alexus-wound Skin Appearance Assessed ) -Color (Alexus-wound Skin Appearance) Assessed Erythema -Temperature (Alexus-wound Skin No Abnormality Appearance) (Pt Warm) -Tenderness on Palpation (Alexus-wound Yes Skin Appearance) -Ulcer Cleansing Rinsed/ Irrigated with Saline -Foul Odor after Cleansing No -Anesthetic Used 5% Lidocaine Gel WC - Nurse 2 - General Ulcer CM Notes Start: 12/18/18 12:59 Freq: Status: Active Protocol: Activity Type Activity Date Activity User E-Sign Co-Sign Detail Recorded Client Recorded Date Recorded By Document 01/14/19 13:32 DV [id number] 01/14/19 13:36 DV 01/14/19 13:32 Wound Center Nurse 2 [Procedure/Treatment] -Time 13:33 -Correct Patient Yes -Correct Side, Site, Position Yes -Correct Procedure Yes -Procedure Performed Yes -Type of Procedure Debridement -Clinical Debridement Subcutaneous -Post Debridement Size (cm) - Length 1.4 -Post Debridement Size (cm) - Width 1.5 -Post Debridement Size (cm) - Depth 0.4 -Total Square Cm 2.10 -Wound/Ulcer Outcome Not Healed -Ulcer Cleansing Rinsed/ Irrigated with Saline -Foul Odor after Cleansing No -Bioengineered Tissue No -Bleeding Controlled with Silver Nitrate -Offloading Yes -Treatment Response Procedure Tolerated Well [See Physician Procedure note for Specifics] Pain Scale: 0-10 Numeric [Pain] -Is Patient Pain Free? Yes Neurological: Neuro grossly intact Psych/Mental Status: Normal Affect, Appropriate, Alert and oriented to time, place, person, mood and affect Debridement Note Post-Debridement Measurements/Treatment WC - Nurse 2 - General Ulcer CM Notes Start: 12/18/18 12:59 Freq: Status: Active Protocol: Activity Type Activity Date Activity User E-Sign Co-Sign Detail Recorded Client Recorded Date Recorded By Document 12/18/18 13:55 MW [id number] 02/01/19 14:02 MW Document 01/14/19 13:32 DV [id number] 01/14/19 13:36 DV 12/18/18 01/14/19 13:55 13:32 Wound Center Nurse 2 #3 Coccyx -Time 13:57 13:33 -Correct Patient Yes Yes -Correct Side, Site, Position Yes Yes -Correct Procedure Yes Yes -Procedure Performed Yes Yes -Type of Procedure Debridement Debridement -Clinical Debridement Subcutaneous Subcutaneous -Post Debridement Size (cm) - Length 1.4 1.4 -Post Debridement Size (cm) - Width 1.5 1.5 -Post Debridement Size (cm) - Depth 0.3 0.4 -Total Square Cm 2.10 2.10 -Wound/Ulcer Outcome Not Healed Not Healed -Ulcer Cleansing Rinsed/ Rinsed/ Irrigated with Irrigated with Saline Saline -Foul Odor after Cleansing No No -Bioengineered Tissue No No -Bleeding Controlled with Pressure Silver Nitrate -Offloading No Yes -Treatment Response Procedure Procedure Tolerated Well Tolerated Well Pain Scale: 0-10 Numeric Is Patient Pain Free? Yes Yes Wound debrided: Stage III pressure ulcer sacrum Type of Debridement: Excisional debridement Anesthesia Used: 5% Lidocaine Gel Depth: in the subcutaneous layer Percentage of wound debrided: 100 Instrument Used: 5mm curette Tissue Removed: Slough and devitalized tissue Severity: Fat Layer Exposed Amount of bleeding with debridement: Mild Bleeding Controlled with: Pressure Patient tolerated procedure well Assessment/Plan Assessment: See above diagnoses Plan: The patient was seen and examined at the wound center today. A subcutaneous debridement was performed today. The patient tolerated the procedure well. The patients wound care will consist of: isaac and optifoam d aily. Patient and daughter agree to continue on a palliative wound plan given the multiple wound care failures and patients multiple comorbidities that interfere with wound healing. Discussed this with patient and daughter. Pt to continue with offloading interventions such as turning q2h in bed at night and offloading when sitting, however she is noncompliant with this. previous cultures collected were negative. Baseline bloodwork reviewed and prealbumin was very low, encouraged the use of high protien drinks and to drink at minimum 3-4 ensure drinks per day, however patient is noncompliant with this. Patient educated on the importance of diet on wound healing and instructed to increase protein and vitamin C intake. Patient verbalized understanding. Due to patient's limited mobility and stage III pressure ulcer, she would benefit from the use of a sliding board and the use of a gel cushion for her wheelchair. Orders for the supplies were given. Patient will follow up at wound healing center in 4 weeks or sooner if needed. This note was generated with [employer] software. It may contain incorrect words, spelling, and punctuation that were not noted in checking the note before signing. Code Visit 111xxx-113xx: 32138 Angie subq tissue 20 sq cm/<
== END 2019-01-14 23:59 ==
LOC: WC 13:00
PROVIDERS: Family Provider Family Medicine; PCP Family Medicine; Visit Provider Nurse Practitioner Family
DX: L89.153 Pressure ulcer of sacral region, stage 3 (principal); Z89.612 Acquired absence of left leg above knee; M06.9 Rheumatoid arthritis, unspecified; Z86.711 Personal history of pulmonary embolism; Z86.718 Personal history of other venous thrombosis and embolism; Z79.01 Long term (current) use of anticoagulants; E03.9 Hypothyroidism, unspecified; E78.5 Hyperlipidemia, unspecified; I10 Essential (primary) hypertension; Z91.19 Patient's noncompliance with other medical treatment and regimen
CPT/HCPCS: 11042; 17250; 99212; G0463

== ENCOUNTER 2019-02-11 12:31 | Outpatient (RCR) | payer MEDICARE, OTHER, SELFPAY ==
[2019-01-15 00:54] VITALS: BP 125/48; PULSE 80; RESP 16; TEMP 36.6
[2019-02-11 13:03] VITALS: BP 127/58; PULSE 72; RESP 16; TEMP 36.6
--- NOTE | 2019-02-11 17:16 | PCM.WC.PN ---
(1) Stage III pressure ulcer Status: Chronic Current Visit: Yes Qualifiers: Code(s): L89.93 - Pressure ulcer of unspecified site, stage 3 Comment: coccyx (2) Malnutrition Status: Acute Current Visit: No Code(s): E46 - Unspecified protein-calorie malnutrition (3) Amputation of left lower extremity Status: Chronic Current Visit: No Qualifiers: Code(s): S88.912A - Complete traumatic amputation of left lower leg, level unspecified, initial encounter (4) Hyperlipidemia Status: Chronic Current Visit: No Code(s): E78.5 - Hyperlipidemia, unspecified (5) Hypertension Status: Chronic Current Visit: No Code(s): I10 - Essential (primary) hypertension (6) Immobility Status: Chronic Current Visit: Yes Code(s): Z74.09 - Other reduced mobility Type of Wound Date of Service: 02/11/19 Chief Complaint: Stage III pressure 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 She has a past medical history of left [id number] amputee, DVT, PE with long-term Coumadin anticoagulation, anemia, RA and OA. Patient and family believe the wound started around November 2017 due to pressure and constantly sitting in her chair. Her wound has been noted on multiple hospital admissions in the past. Cultures were previously done in January 2018 and demonstrated staph, Klebsiella, and Proteus and patient completed Levaquin and ampicillin therapy. The patient has also been in and out of the [facility]. She is currently residing at home with her . Due to her amputation, her mobility is severely limited and she spends most of her time sitting in either her wheelchair or her reclining chair at home. She does have a hospital bed that she sleeps in at night. She does state that she has an excoriated buttocks as well due to having to scoot from her wheelchair to reclining chair and wheelchair to bed. She has been using Isaac for dressing the wound and is on a palliative traetment plan. She usually follows with Wilbur Gallagher CNP but had to reschedule due to weather. Denies any heavy drainage, though does state that the ulcer bleeds at times. Denies any systemic signs of infection at this time. The patient otherwise denies any fever, chills, nausea, vomiting, shortness of breath, chest pain or pressure, palpitations, orthopnea, lower extremity edema, syncope or presyncopal episodes. Progress of Wound: Size stable, moderate amount of slough present, no signs of infection, patient doing well with palliative wound care, still has difficulty remaining compliant with offloading. - Physical Exam Vital Signs Temp Pulse Resp BP 97.8 F 72 16 127/58 H 02/11/19 13:03 02/11/19 13:03 02/11/19 13:03 02/11/19 13:03 General: Alert, Oriented x3, Cooperative, No apparent distress HEENT: Atraumatic Lungs: Clear to auscultation Cardiovascular: Regular rate Abdomen: Soft, Non Tender Extremities: No clubbing, No cyanosis, - - amputation LLE Skin: Ulcer/ Wound - Stage III pressure ulcer to coccyx with adherent slough, no signs of infection at this time. No redness, streaking, or warmth Wound Measurements and Assessment WC - Nurse 1 - General Ulcer Measurement Start: 02/11/19 13:03 Freq: Status: Active Protocol: Activity Type Activity Date Activity User E-Sign Co-Sign Detail Recorded Client Recorded Date Recorded By Document 02/11/19 13:03 [facility] [id number] 02/11/19 13:08 [facility] 02/11/19 13:03 Wound Center Nurse 1 [Ulcer Assessment] #3 Coccyx -Combined with other wound No -Current Size (cm) - Length 1.6 -Current Size (cm) - Width 1 -Current Size (cm) - Depth 0.3 -Total Square Cm 1.6 -Date of Last Picture (Recall this 02/11/19 field) -Photo Taken Yes -Epithelialization None Present -Tunneling No -Undermining/Tunneling No -Circular Undermining No -Exudate Amt Small -Exudate Type Purulent -Wound Margin Distinct, Outline Attached -Granulation Amt Large (67-100%) -Granulation Quality Red -Slough/Fibrin Yes -Necrosis Amt Small (1-33%) -Necrotic Tissue Type Adherent Slough -Texture (Alexus-wound Skin Appearance) Scarring -Moisture (Alexus-wound Skin Appearance Assessed ) -Color (Alexus-wound Skin Appearance) Assessed Erythema -Temperature (Alexus-wound Skin No Abnormality Appearance) (Pt Warm) -Tenderness on Palpation (Alexus-wound No Skin Appearance) -Ulcer Cleansing Rinsed/ Irrigated with Saline -Foul Odor after Cleansing No -Anesthetic Used 5% Lidocaine Gel WC - Nurse 2 - General Ulcer CM Notes Start: 02/11/19 13:03 Freq: Status: Active Protocol: Activity Type Activity Date Activity User E-Sign Co-Sign Detail Recorded Client Recorded Date Recorded By Document 02/11/19 13:26 AN [id number] 02/11/19 13:29 AN 02/11/19 13:26 Wound Center Nurse 2 [Procedure/Treatment] -Time 13:27 -Correct Patient Yes -Correct Side, Site, Position Yes -Correct Procedure Yes -Procedure Performed Yes -Type of Procedure Debridement -Clinical Debridement Subcutaneous -Post Debridement Size (cm) - Length 1.5 -Post Debridement Size (cm) - Width 1.2 -Post Debridement Size (cm) - Depth 0.3 -Total Square Cm 1.80 -Wound/Ulcer Outcome Not Healed -Ulcer Cleansing Rinsed/ Irrigated with Saline -Foul Odor after Cleansing No -Bleeding Controlled with Pressure -Offloading No -Treatment Response Procedure Tolerated Well [See Physician Procedure note for Specifics] Neurological: Neuro grossly intact Psych/Mental Status: Normal Affect, Appropriate, Alert and oriented to time, place, person, mood and affect Debridement Note Post-Debridement Measurements/Treatment WC - Nurse 2 - General Ulcer CM Notes Start: 02/11/19 13:03 Freq: Status: Active Protocol: Activity Type Activity Date Activity User E-Sign Co-Sign Detail Recorded Client Recorded Date Recorded By Document 02/11/19 13:26 AN [id number] 02/11/19 13:29 AN 02/11/19 13:26 Wound Center Nurse 2 #3 Coccyx -Time 13:27 -Correct Patient Yes -Correct Side, Site, Position Yes -Correct Procedure Yes -Procedure Performed Yes -Type of Procedure Debridement -Clinical Debridement Subcutaneous -Post Debridement Size (cm) - Length 1.5 -Post Debridement Size (cm) - Width 1.2 -Post Debridement Size (cm) - Depth 0.3 -Total Square Cm 1.80 -Wound/Ulcer Outcome Not Healed -Ulcer Cleansing Rinsed/ Irrigated with Saline -Foul Odor after Cleansing No -Bleeding Controlled with Pressure -Offloading No -Treatment Response Procedure Tolerated Well Wound debrided: Stage III pressure ulcer of coccyx Laterality: Not Applicable Type of Debridement: Excisional debridement Depth: in the subcutaneous layer Percentage of wound debrided: 100 Instrument Used: 5mm curette Tissue Removed: Slough and devitalized tissue Severity: Fat Layer Exposed Amount of bleeding with debridement: Mild Bleeding Controlled with: Pressure Patient tolerated procedure well Assessment/Plan Active Problems Stage III pressure ulcer (Chronic) coccyx Immobility (Chronic) Assessment: See above diagnoses Plan: The patient was seen and examined at the wound center today. A subcutaneous debridement was performed today. The patient tolerated the procedure well. The patients wound care will consist of: isaac and optifoam daily. Advised to offload pressure to right dorsal foot. Avoid shoes, wear slipper socks with recreation facilities supervisor on soles. Patient and daughter agree to continue on a palliative wound plan given the multiple wound care failures and patients multiple comorbidities that interfere with wound healing. Discussed this with patient and daughter. Pt to continue with offloading interventions such as turning q2h in bed at night and offloading when sitting, however she is noncompliant with this. previous cultures collected were negative. Baseline bloodwork reviewed and prealbumin was very low, encouraged the use of high protien drinks and to drink at minimum 3-4 ensure drinks per day, however patient is noncompliant with this. Patient educated on the importance of diet on wound healing and instructed to increase protein and vitamin C intake. Patient verbalized understanding. Due to patient's limited mobility and stage III pressure ulcer, she would benefit from the use of a sliding board and the use of a gel cushion for her wheelchair. Orders for the supplies were given. Patient will follow up at wound healing center in 4 weeks or sooner if needed. This note was generated with [employer] dictation software. It may contain incorrect words, spelling, and punctuation that were not noted in checking the note before signing. Code Visit 111xxx-113xx: 42123 Angie subq tissue 20 sq cm/<
--- NOTE | 2019-02-11 17:19 | PN.PCM_ITS ---
(1) Stage III pressure ulcer Status: Chronic Current Visit: Yes Qualifiers: Code(s): L89.93 - Pressure ulcer of unspecified site, stage 3 Comment: coccyx (2) Malnutrition Status: Acute Current Visit: No Code(s): E46 - Unspecified protein-calorie malnutrition (3) Amputation of left lower extremity Status: Chronic Current Visit: No Qualifiers: Code(s): S88.912A - Complete traumatic amputation of left lower leg, level unspecified, initial encounter (4) Hyperlipidemia Status: Chronic Current Visit: No Code(s): E78.5 - Hyperlipidemia, unspecified (5) Hypertension Status: Chronic Current Visit: No Code(s): I10 - Essential (primary) hypertension (6) Immobility Status: Chronic Current Visit: Yes Code(s): Z74.09 - Other reduced mobility Type of Wound Date of Service: 02/11/19 Chief Complaint: Stage III pressure 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 She has a past medical history of left [id number] amputee, DVT, PE with long-term Coumadin anticoagulation, anemia, RA and OA. Patient and family believe the wound started around November 2017 due to pressure and constantly sitting in her chair. Her wound has been noted on multiple hospital admissions in the past. Cultures were previously done in January 2018 and demonstrated staph, Klebsiella, and Proteus and patient completed Levaquin and ampicillin therapy. The patient has also been in and out of the skilled nursing. She is currently residing at home with her . Due to her amputation, her mobility is severely limited and she spends most of her time sitting in either her wheelchair or her reclining chair at home. She does have a hospital bed that she sleeps in at night. She does state that she has an excoriated buttocks as well due to having to scoot from her wheelchair to reclining chair and wheelchair to bed. She has been using Isaac for dressing the wound and is on a palliative traetment plan. She usually follows with Wilbur Gallagher CNP but had to reschedule due to weather. Denies any heavy drainage, though does state that the ulcer bleeds at times. Denies any systemic signs of infection at this time. The patient otherwise denies any fever, chills, nausea, vomiting, shortness of breath, chest pain or pressure, palpitations, orthopnea, lower extremity edema, syncope or presyncopal episodes. Progress of Wound: Size stable, moderate amount of slough present, no signs of infection, patient doing well with palliative wound care, still has difficulty remaining compliant with offloading. - Physical Exam Vital Signs Temp Pulse Resp BP 97.8 F 72 16 127/58 H 02/11/19 13:03 02/11/19 13:03 02/11/19 13:03 02/11/19 13:03 General: Alert, Oriented x3, Cooperative, No apparent distress HEENT: Atraumatic Lungs: Clear to auscultation Cardiovascular: Regular rate Abdomen: Soft, Non Tender Extremities: No clubbing, No cyanosis, - - amputation LLE Skin: Ulcer/ Wound - Stage III pressure ulcer to coccyx with adherent slough, no signs of infection at this time. No redness, streaking, or warmth Wound Measurements and Assessment WC - Nurse 1 - General Ulcer Measurement Start: 02/11/19 13:03 Freq: Status: Active Protocol: Activity Type Activity Date Activity User E-Sign Co-Sign Detail Recorded Client Recorded Date Recorded By Document 02/11/19 13:03 [facility] [email or web address] 02/11/19 13:08 [facility] 02/11/19 13:03 Wound Center Nurse 1 [Ulcer Assessment] #3 Coccyx -Combined with other wound No -Current Size (cm) - Length 1.6 -Current Size (cm) - Width 1 -Current Size (cm) - Depth 0.3 -Total Square Cm 1.6 -Date of Last Picture (Recall this 02/11/19 field) -Photo Taken Yes -Epithelialization None Present -Tunneling No -Undermining/Tunneling No -Circular Undermining No -Exudate Amt Small -Exudate Type Purulent -Wound Margin Distinct, Outline Attached -Granulation Amt Large (67-100%) -Granulation Quality Red -Slough/Fibrin Yes -Necrosis Amt Small (1-33%) -Necrotic Tissue Type Adherent Slough -Texture (Alexus-wound Skin Appearance) Scarring -Moisture (Alexus-wound Skin Appearance Assessed ) -Color (Alexus-wound Skin Appearance) Assessed Erythema -Temperature (Alexus-wound Skin No Abnormality Appearance) (Pt Warm) -Tenderness on Palpation (Alexus-wound No Skin Appearance) -Ulcer Cleansing Rinsed/ Irrigated with Saline -Foul Odor after Cleansing No -Anesthetic Used 5% Lidocaine Gel WC - Nurse 2 - General Ulcer CM Notes Start: 02/11/19 13:03 Freq: Status: Active Protocol: Activity Type Activity Date Activity User E-Sign Co-Sign Detail Recorded Client Recorded Date Recorded By Document 02/11/19 13:26 AN [id number] 02/11/19 13:29 AN 02/11/19 13:26 Wound Center Nurse 2 [Procedure/Treatment] -Time 13:27 -Correct Patient Yes -Correct Side, Site, Position Yes -Correct Procedure Yes -Procedure Performed Yes -Type of Procedure Debridement -Clinical Debridement Subcutaneous -Post Debridement Size (cm) - Length 1.5 -Post Debridement Size (cm) - Width 1.2 -Post Debridement Size (cm) - Depth 0.3 -Total Square Cm 1.80 -Wound/Ulcer Outcome Not Healed -Ulcer Cleansing Rinsed/ Irrigated with Saline -Foul Odor after Cleansing No -Bleeding Controlled with Pressure -Offloading No -Treatment Response Procedure Tolerated Well [See Physician Procedure note for Specifics] Neurological: Neuro grossly intact Psych/Mental Status: Normal Affect, Appropriate, Alert and oriented to time, place, person, mood and affect Debridement Note Post-Debridement Measurements/Treatment WC - Nurse 2 - General Ulcer CM Notes Start: 02/11/19 13:03 Freq: Status: Active Protocol: Activity Type Activity Date Activity User E-Sign Co-Sign Detail Recorded Client Recorded Date Recorded By Document 02/11/19 13:26 AN [id number] 02/11/19 13:29 AN 02/11/19 13:26 Wound Center Nurse 2 #3 Coccyx -Time 13:27 -Correct Patient Yes -Correct Side, Site, Position Yes -Correct Procedure Yes -Procedure Performed Yes -Type of Procedure Debridement -Clinical Debridement Subcutaneous -Post Debridement Size (cm) - Length 1.5 -Post Debridement Size (cm) - Width 1.2 -Post Debridement Size (cm) - Depth 0.3 -Total Square Cm 1.80 -Wound/Ulcer Outcome Not Healed -Ulcer Cleansing Rinsed/ Irrigated with Saline -Foul Odor after Cleansing No -Bleeding Controlled with Pressure -Offloading No -Treatment Response Procedure Tolerated Well Wound debrided: Stage III pressure ulcer of coccyx Laterality: Not Applicable Type of Debridement: Excisional debridement Depth: in the subcutaneous layer Percentage of wound debrided: 100 Instrument Used: 5mm curette Tissue Removed: Slough and devitalized tissue Severity: Fat Layer Exposed Amount of bleeding with debridement: Mild Bleeding Controlled with: Pressure Patient tolerated procedure well Assessment/Plan Active Problems Stage III pressure ulcer (Chronic) coccyx Immobility (Chronic) Assessment: See above diagnoses Plan: The patient was seen and examined at the wound center today. A subcutaneous debridement was performed today. The patient tolerated the procedure well. The patients wound care will consist of: isaac and optifoam daily. Advised to offload pressure to right dorsal foot. Avoid shoes, wear slipper socks with supervisor international reservations on soles. Patient and daughter agree to continue on a palliative wound plan given the multiple wound care failures and patients multiple comorbidities that interfere with wound healing. Discussed this with patient and daughter. Pt to continue with offloading interventions such as turning q2h in bed at night and offloading when sitting, however she is noncompliant with this. previous cultures collected were negative. Baseline bl oodwork reviewed and prealbumin was very low, encouraged the use of high protien drinks and to drink at minimum 3-4 ensure drinks per day, however patient is noncompliant with this. Patient educated on the importance of diet on wound healing and instructed to increase protein and vitamin C intake. Patient verbalized understanding. Due to patient's limited mobility and stage III pressure ulcer, she would benefit from the use of a sliding board and the use of a gel cushion for her wheelchair. Orders for the supplies were given. Patient will follow up at wound healing center in 4 weeks or sooner if needed. This note was generated with [employer] dictation software. It may contain incorrect words, spelling, and punctuation that were not noted in checking the note before signing. Code Visit 111xxx-113xx: 10855 Angie subq tissue 20 sq cm/<
== END 2019-02-14 23:59 ==
LOC: WC 12:31
PROVIDERS: Family Provider Family Medicine; PCP Family Medicine; Visit Provider Nurse Practitioner Family
DX: L89.153 Pressure ulcer of sacral region, stage 3 (principal); Z89.612 Acquired absence of left leg above knee; E78.5 Hyperlipidemia, unspecified; I10 Essential (primary) hypertension; Z86.711 Personal history of pulmonary embolism; Z86.718 Personal history of other venous thrombosis and embolism; Z79.01 Long term (current) use of anticoagulants; M06.9 Rheumatoid arthritis, unspecified
CPT/HCPCS: 11042

== ENCOUNTER 2019-03-11 13:03 | Outpatient (RCR) | payer MEDICARE, OTHER, SELFPAY ==
[2019-02-15 00:48] VITALS: BP 127/58; PULSE 72; RESP 16; TEMP 36.6
[2019-03-11 13:05] VITALS: BP 120/57; PULSE 80; RESP 18; TEMP 36.3
--- NOTE | 2019-03-11 18:44 | PCM.WC.PN ---
(1) Stage III pressure ulcer Status: Chronic Current Visit: Yes Qualifiers: Code(s): L89.93 - Pressure ulcer of unspecified site, stage 3 Comment: coccyx (2) Iron (Fe) deficiency anemia Status: Acute Current Visit: No Code(s): D50.9 - Iron deficiency anemia, unspecified (3) Malnutrition Status: Acute Current Visit: No Code(s): E46 - Unspecified protein-calorie malnutrition (4) Amputation of left lower extremity Status: Chronic Current Visit: No Qualifiers: Code(s): S88.912A - Complete traumatic amputation of left lower leg, level unspecified, initial encounter (5) Hypertension Status: Chronic Current Visit: No Code(s): I10 - Essential (primary) hypertension (6) Immobility Status: Chronic Current Visit: No Code(s): Z74.09 - Other reduced mobility (7) Osteoarthritis of hips, bilateral Status: Chronic Current Visit: No Code(s): M16.0 - Bilateral primary osteoarthritis of hip (8) Osteoporosis Status: Chronic Current Visit: No Code(s): M81.0 - Age-related osteoporosis without current pathological fracture Type of Wound Date of Service: 03/11/19 Chief Complaint: Stage III pressure 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 She has a past medical history of left [id number] amputee, DVT, PE with long-term Coumadin anticoagulation, anemia, RA and OA. Patient and family believe the wound started around November 2017 due to pressure and constantly sitting in her chair. Her wound has been noted on multiple hospital admissions in the past. Cultures were previously done in January 2018 and demonstrated staph, Klebsiella, and Proteus and patient completed Levaquin and ampicillin therapy. The patient has also been in and out of the skilled nursing. She is currently residing at home with her . Due to her amputation, her mobility is severely limited and she spends most of her time sitting in either her wheelchair or her reclining chair at home. She does have a hospital bed that she sleeps in at night. She does state that she has an excoriated buttocks as well due to having to scoot from her wheelchair to reclining chair and wheelchair to bed. She has been using Isaac for dressing the wound and is on a palliative traetment plan. She usually follows with Wilbur Gallagher CNP but had to reschedule due to weather. Denies any heavy drainage, though does state that the ulcer bleeds at times. Denies any systemic signs of infection at this time. The patient otherwise denies any fever, chills, nausea, vomiting, shortness of breath, chest pain or pressure, palpitations, orthopnea, lower extremity edema, syncope or presyncopal episodes. Progress of Wound: Size stable, moderate amount of slough present, no signs of infection, patient doing well with palliative wound care, still has difficulty remaining compliant with offloading. - Physical Exam Vital Signs Temp Pulse Resp BP 97.3 F L 80 18 120/57 L 03/11/19 13:05 03/11/19 13:05 03/11/19 13:05 03/11/19 13:05 General: Alert, Oriented x3, Cooperative, No apparent distress, - - Malnourished HEENT: Atraumatic Oral: Moist Mucosa Lungs: Clear to auscultation, Normal air movement Cardiovascular: Regular rate, Regular Rhythm Abdomen: Soft, Non Tender Extremities: - - Left lower extremity amputation Skin: Ulcer/ Wound - Stage III pressure ulcer to coccyx with adherent slough, no signs of infection at this time, no surrounding erythema or purulent drainage or warmth Wound Measurements and Assessment WC - Nurse 1 - General Ulcer Measurement Start: 03/11/19 13:05 Freq: Status: Active Protocol: Activity Type Activity Date Activity User E-Sign Co-Sign Detail Recorded Client Recorded Date Recorded By Document 03/11/19 13:05 [id number] 03/11/19 13:20 DL 03/11/19 13:05 Wound Center Nurse 1 [Ulcer Assessment] #3 Coccyx -Current Size (cm) - Length 1.3 -Current Size (cm) - Width 1 -Current Size (cm) - Depth 0.5 -Total Square Cm 1.3 -Photo Taken Yes -Exudate Amt Small -Exudate Type Serosanguineous -Wound Margin Distinct, Outline Attached -Granulation Amt Large (67-100%) -Granulation Quality Red -Necrosis Amt Small (1-33%) -Necrotic Tissue Type Adherent Slough -Structure Exposed N/A -Texture (Alexus-wound Skin Appearance) Scarring -Moisture (Alexus-wound Skin Appearance No Abnormality ) -Color (Alexus-wound Skin Appearance) No Abnormality -Temperature (Alexus-wound Skin No Abnormality Appearance) (Pt Warm) -Tenderness on Palpation (Alexus-wound No Skin Appearance) -Ulcer Cleansing Wound Cleanser -Foul Odor after Cleansing No -Anesthetic Used 4% Lidocaine Solution ROMI - Nurse 2 - General Ulcer CM Notes Start: 03/11/19 13:05 Freq: Status: Active Protocol: Activity Type Activity Date Activity User E-Sign Co-Sign Detail Recorded Client Recorded Date Recorded By Document 03/11/19 13:58 AN [id number] 03/11/19 14:00 AN 03/11/19 13:58 Wound Center Nurse 2 [Procedure/Treatment] -Time 13:58 -Correct Patient Yes -Correct Side, Site, Position Yes -Correct Procedure Yes -Procedure Performed Yes -Type of Procedure Debridement -Clinical Debridement Subcutaneous -Post Debridement Size (cm) - Length 1.4 -Post Debridement Size (cm) - Width 1.5 -Post Debridement Size (cm) - Depth 0.3 -Total Square Cm 2.10 -Wound/Ulcer Outcome Not Healed -Ulcer Cleansing Rinsed/ Irrigated with Saline -Foul Odor after Cleansing No -Bioengineered Tissue No -Bleeding Controlled with Pressure -Offloading Yes -Treatment Response Procedure Tolerated Well [See Physician Procedure note for Specifics] Pain Scale: 0-10 Numeric [Pain] -Is Patient Pain Free? Yes Musculoskeletal: Arthritic Changes, Muscle Wasting Neurological: Neuro grossly intact Psych/Mental Status: Normal Affect, Appropriate, Alert and oriented to time, place, person, mood and affect Debridement Note Post-Debridement Measurements/Treatment - Nurse 2 - General Ulcer CM Notes Start: 03/11/19 13:05 Freq: Status: Active Protocol: Activity Type Activity Date Activity User E-Sign Co-Sign Detail Recorded Client Recorded Date Recorded By Document 03/11/19 13:58 AN [id number] 03/11/19 14:00 AN 03/11/19 13:58 Wound Center Nurse 2 #3 Coccyx -Time 13:58 -Correct Patient Yes -Correct Side, Site, Position Yes -Correct Procedure Yes -Procedure Performed Yes -Type of Procedure Debridement -Clinical Debridement Subcutaneous -Post Debridement Size (cm) - Length 1.4 -Post Debridement Size (cm) - Width 1.5 -Post Debridement Size (cm) - Depth 0.3 -Total Square Cm 2.10 -Wound/Ulcer Outcome Not Healed -Ulcer Cleansing Rinsed/ Irrigated with Saline -Foul Odor after Cleansing No -Bioengineered Tissue No -Bleeding Controlled with Pressure -Offloading Yes -Treatment Response Procedure Tolerated Well Pain Scale: 0-10 Numeric Is Patient Pain Free? Yes Wound debrided: Stage III pressure ulcer to the coccyx Laterality: Not Applicable Type of Debridement: Excisional debridement Anesthesia Used: 5% Lidocaine Gel Depth: in the subcutaneous layer Percentage of wound debrided: 100 Instrument Used: 5mm curette Tissue Removed: Slough and devitalized tissue Severity: Fat Layer Exposed Amount of bleeding with debridement: Mild Bleeding Controlled with: Pressure Patient tolerated procedure well Assessment/Plan Active Problems Stage III pressure ulcer (Chronic) coccyx Assessment: See above diagnoses Plan: The patient was seen and examined at the wound center today. A subcutaneous debridement was performed today. The patient tolerated the procedure well. The patients wound care will consist of: isaac and optifoam daily. Patient and daughter agree to continue on a palliative wound plan given the multiple wound care failures and patients multiple comorbidities that interfere with wound healing. Discussed this with patient and daughter. Pt to continue with offloading interventions such as turning q2h in bed at night and offloading when sitting, however she is noncompliant with this. previous cultures collected were negative. Baseline bloodwork reviewed and prealbumin was very low, encouraged the use of high protien drinks and to drink at minimum 3-4 ensure drinks per day, however patient is noncompliant with this. Patient educated on the importance of diet on wound healing and instructed to increase protein and vitamin C intake. Patient verbalized understanding. Due to patient's limited mobility and stage III pressure ulcer, she would benefit from the use of a sliding board and the use of a gel cushion for her wheelchair. Orders for the supplies were given. Patient will follow up at wound healing center in 4 weeks or sooner if needed. This note was generated with [employer] software. It may contain incorrect words, spelling, and punctuation that were not noted in checking the note before signing. Code Visit 111xxx-113xx: [id number] Angie subq tissue 20 sq cm/<
--- NOTE | 2019-03-12 10:48 | PN.PCM_ITS ---
(1) Stage III pressure ulcer Status: Chronic Current Visit: Yes Qualifiers: Code(s): L89.93 - Pressure ulcer of unspecified site, stage 3 Comment: coccyx (2) Iron (Fe) deficiency anemia Status: Acute Current Visit: No Code(s): D50.9 - Iron deficiency anemia, unspecified (3) Malnutrition Status: Acute Current Visit: No Code(s): E46 - Unspecified protein-calorie malnutrition (4) Amputation of left lower extremity Status: Chronic Current Visit: No Qualifiers: Code(s): S88.912A - Complete traumatic amputation of left lower leg, level unspecified, initial encounter (5) Hypertension Status: Chronic Current Visit: No Code(s): I10 - Essential (primary) hypertension (6) Immobility Status: Chronic Current Visit: No Code(s): Z74.09 - Other reduced mobility (7) Osteoarthritis of hips, bilateral Status: Chronic Current Visit: No Code(s): M16.0 - Bilateral primary osteoarthritis of hip (8) Osteoporosis Status: Chronic Current Visit: No Code(s): M81.0 - Age-related osteoporosis without current pathological fracture Type of Wound Date of Service: 03/11/19 Chief Complaint: Stage III pressure 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 She has a past medical history of left cikwr-kup-yduy amputee, DVT, PE with long-term Coumadin anticoagulation, anemia, RA and OA. Patient and family believe the wound started around November 2017 due to pressure and constantly sitting in her chair. Her wound has been noted on multiple hospital admissions in the past. Cultures were previously done in January 2018 and demonstrated staph, Klebsiella, and Proteus and patient completed Levaquin and ampicillin therapy. The patient has also been in and out of the residential. She is currently residing at home with her . Due to her amputation, her mobility is severely limited and she spends most of her time sitting in either her wheelchair or her reclining chair at home. She does have a hospital bed that she sleeps in at night. She does state that she has an excoriated buttocks as well due to having to scoot from her wheelchair to reclining chair and wheelchair to bed. She has been using Isaac for dressing the wound and is on a palliative traetment plan. She usually follows with Wilbur Gallagher CNP but had to reschedule due to weather. Denies any heavy drainage, though does state that the ulcer bleeds at times. Denies any systemic signs of infection at this time. The patient otherwise denies any fever, chills, nausea, vomiting, shortness of breath, chest pain or pressure, palpitations, orthopnea, lower extremity edema, syncope or presyncopal episodes. Progress of Wound: Size stable, moderate amount of slough present, no signs of infection, patient doing well with palliative wound care, still has difficulty remaining compliant with offloading. - Physical Exam Vital Signs Temp Pulse Resp BP 97.3 F L 80 18 120/57 L 03/11/19 13:05 03/11/19 13:05 03/11/19 13:05 03/11/19 13:05 General: Alert, Oriented x3, Cooperative, No apparent distress, - - Malnourished HEENT: Atraumatic Oral: Moist Mucosa Lungs: Clear to auscultation, Normal air movement Cardiovascular: Regular rate, Regular Rhythm Abdomen: Soft, Non Tender Extremities: - - Left lower extremity amputation Skin: Ulcer/ Wound - Stage III pressure ulcer to coccyx with adherent slough, no signs of infection at this time, no surrounding erythema or purulent drainage or warmth Wound Measurements and Assessment WC - Nurse 1 - General Ulcer Measurement Start: 03/11/19 13:05 Freq: Status: Active Protocol: Activity Type Activity Date Activity User E-Sign Co-Sign Detail Recorded Client Recorded Date Recorded By Document 03/11/19 13:05 [id number] 03/11/19 13:20 DL 03/11/19 13:05 Wound Center Nurse 1 [Ulcer Assessment] #3 Coccyx -Current Size (cm) - Length 1.3 -Current Size (cm) - Width 1 -Current Size (cm) - Depth 0.5 -Total Square Cm 1.3 -Photo Taken Yes -Exudate Amt Small -Exudate Type Serosanguineous -Wound Margin Distinct, Outline Attached -Granulation Amt Large (67-100%) -Granulation Quality Red -Necrosis Amt Small (1-33%) -Necrotic Tissue Type Adherent Slough -Structure Exposed N/A -Texture (Alexus-wound Skin Appearance) Scarring -Moisture (Alexus-wound Skin Appearance No Abnormality ) -Color (Alexus-wound Skin Appearance) No Abnormality -Temperature (Alexus-wound Skin No Abnormality Appearance) (Pt Warm) -Tenderness on Palpation (Alexus-wound No Skin Appearance) -Ulcer Cleansing Wound Cleanser -Foul Odor after Cleansing No -Anesthetic Used 4% Lidocaine Solution ROMI - Nurse 2 - General Ulcer CM Notes Start: 03/11/19 13:05 Freq: Status: Active Protocol: Activity Type Activity Date Activity User E-Sign Co-Sign Detail Recorded Client Recorded Date Recorded By Document 03/11/19 13:58 AN [id number] 03/11/19 14:00 AN 03/11/19 13:58 Wound Center Nurse 2 [Procedure/Treatment] -Time 13:58 -Correct Patient Yes -Correct Side, Site, Position Yes -Correct Procedure Yes -Procedure Performed Yes -Type of Procedure Debridement -Clinical Debridement Subcutaneous -Post Debridement Size (cm) - Length 1.4 -Post Debridement Size (cm) - Width 1.5 -Post Debridement Size (cm) - Depth 0.3 -Total Square Cm 2.10 -Wound/Ulcer Outcome Not Healed -Ulcer Cleansing Rinsed/ Irrigated with Saline -Foul Odor after Cleansing No -Bioengineered Tissue No -Bleeding Controlled with Pressure -Offloading Yes -Treatment Response Procedure Tolerated Well [See Physician Procedure note for Specifics] Pain Scale: 0-10 Numeric [Pain] -Is Patient Pain Free? Yes Musculoskeletal: Arthritic Changes, Muscle Wasting Neurological: Neuro grossly intact Psych/Mental Status: Normal Affect, Appropriate, Alert and oriented to time, place, person, mood and affect Debridement Note Post-Debridement Measurements/Treatment - Nurse 2 - General Ulcer CM Notes Start: 03/11/19 13:05 Freq: Status: Active Protocol: Activity Type Activity Date Activity User E-Sign Co-Sign Detail Recorded Client Recorded Date Recorded By Document 03/11/19 13:58 AN [id number] 03/11/19 14:00 AN 03/11/19 13:58 Wound Center Nurse 2 #3 Coccyx -Time 13:58 -Correct Patient Yes -Correct Side, Site, Position Yes -Correct Procedure Yes -Procedure Performed Yes -Type of Procedure Debridement -Clinical Debridement Subcutaneous -Post Debridement Size (cm) - Length 1.4 -Post Debridement Size (cm) - Width 1.5 -Post Debridement Size (cm) - Depth 0.3 -Total Square Cm 2.10 -Wound/Ulcer Outcome Not Healed -Ulcer Cleansing Rinsed/ Irrigated with Saline -Foul Odor after Cleansing No -Bioengineered Tissue No -Bleeding Controlled with Pressure -Offloading Yes -Treatment Response Procedure Tolerated Well Pain Scale: 0-10 Numeric Is Patient Pain Free? Yes Wound debrided: Stage III pressure ulcer to the coccyx Laterality: Not Applicable Type of Debridement: Excisional debridement Anesthesia Used: 5% Lidocaine Gel Depth: in the subcutaneous layer Percentage of wound debrided: 100 Instrument Used: 5mm curette Tissue Removed: Slough and devitalized tissue Severity: Fat Layer Exposed Amount of bleeding with debridement: Mild Bleeding Controlled with: Pressure Patient tolerated procedure well Assessment/Plan Active Problems Stage III pressure ulcer (Chronic) coccyx Assessment: See above diagnoses Plan: The patient was seen and examined at the wound center today. A subcuta neous debridement was performed today. The patient tolerated the procedure well. The patients wound care will consist of: isaac and optifoam daily. Patient and daughter agree to continue on a palliative wound plan given the multiple wound care failures and patients multiple comorbidities that interfere with wound healing. Discussed this with patient and daughter. Pt to continue with offloading interventions such as turning q2h in bed at night and offloading when sitting, however she is noncompliant with this. previous cultures collected were negative. Baseline bloodwork reviewed and prealbumin was very low, encouraged the use of high protien drinks and to drink at minimum 3-4 ensure drinks per day, however patient is noncompliant with this. Patient educated on the importance of diet on wound healing and instructed to increase protein and vitamin C intake. Patient verbalized understanding. Due to patient's limited mobility and stage III pressure ulcer, she would benefit from the use of a sliding board and the use of a gel cushion for her wheelchair. Orders for the supplies were given. Patient will follow up at wound healing center in 4 weeks or sooner if needed. This note was generated with [employer] dictation software. It may contain incorrect words, spelling, and punctuation that were not noted in checking the note before signing. Code Visit [id number]: [id number] Angie subq tissue 20 sq cm/<
== END 2019-03-16 23:59 ==
LOC: WC 13:03
PROVIDERS: Family Provider Family Medicine; PCP Family Medicine; Visit Provider Nurse Practitioner Family
DX: L89.153 Pressure ulcer of sacral region, stage 3 (principal); I10 Essential (primary) hypertension; Z74.09 Other reduced mobility; M16.0 Bilateral primary osteoarthritis of hip; M81.0 Age-related osteoporosis without current pathological fracture; Z86.711 Personal history of pulmonary embolism; Z86.718 Personal history of other venous thrombosis and embolism; Z89.612 Acquired absence of left leg above knee; M06.9 Rheumatoid arthritis, unspecified; Z79.01 Long term (current) use of anticoagulants
CPT/HCPCS: 11042

== ENCOUNTER 2019-04-08 13:03 | Outpatient (RCR) | payer MEDICARE, OTHER, SELFPAY ==
[2019-03-17 00:58] VITALS: BP 120/57; PULSE 80; RESP 18; TEMP 36.3
[2019-04-08 13:08] VITALS: BP 96/48; PULSE 82; RESP 18; TEMP 36
--- NOTE | 2019-04-08 20:38 | PCM.WC.PN ---
(1) Stage III pressure ulcer Status: Chronic Current Visit: Yes Qualifiers: Code(s): L89.93 - Pressure ulcer of unspecified site, stage 3 Comment: coccyx (2) Malnutrition Status: Acute Current Visit: Yes Code(s): E46 - Unspecified protein-calorie malnutrition (3) Amputation of left lower extremity Status: Chronic Current Visit: Yes Qualifiers: Code(s): S88.912A - Complete traumatic amputation of left lower leg, level unspecified, initial encounter (4) Hyperlipidemia Status: Chronic Current Visit: No Code(s): E78.5 - Hyperlipidemia, unspecified (5) Hypertension Status: Chronic Current Visit: No Code(s): I10 - Essential (primary) hypertension (6) Immobility Status: Chronic Current Visit: Yes Code(s): Z74.09 - Other reduced mobility (7) Osteoarthritis of hips, bilateral Status: Chronic Current Visit: No Code(s): M16.0 - Bilateral primary osteoarthritis of hip Type of Wound Date of Service: 04/08/19 Chief Complaint: Stage III pressure 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 She has a past medical history of left hcjmd-kfh-loqt amputee, DVT, PE with long-term Coumadin anticoagulation, anemia, RA and OA. Patient and family believe the wound started around November 2017 due to pressure and constantly sitting in her chair. Her wound has been noted on multiple hospital admissions in the past. Cultures were previously done in January 2018 and demonstrated staph, Klebsiella, and Proteus and patient completed Levaquin and ampicillin therapy. The patient has also been in and out of the [place] [facility]. She is currently residing at home with her . Due to her amputation, her mobility is severely limited and she spends most of her time sitting in either her wheelchair or her reclining chair at home. She does have a hospital bed that she sleeps in at night. She does state that she has an excoriated buttocks as well due to having to scoot from her wheelchair to reclining chair and wheelchair to bed. She has been using Isaac for dressing the wound and is on a palliative traetment plan. She usually follows with Wilbur Gallagher CNP but had to reschedule due to weather. Denies any heavy drainage, though does state that the ulcer bleeds at times. Denies any systemic signs of infection at this time. The patient otherwise denies any fever, chills, nausea, vomiting, shortness of breath, chest pain or pressure, palpitations, orthopnea, lower extremity edema, syncope or presyncopal episodes. Progress of Wound: Size stable, moderate amount of slough present, no signs of infection, patient doing well with palliative wound care, still has difficulty remaining compliant with offloading. - Physical Exam Vital Signs Temp Pulse Resp BP 96.8 F L 82 18 96/48 L 04/08/19 13:08 04/08/19 13:08 04/08/19 13:08 04/08/19 13:08 General: Alert, Oriented x3, Cooperative, No apparent distress HEENT: Atraumatic Lungs: Clear to auscultation Cardiovascular: Regular rate Abdomen: Soft, Non Tender Extremities: No clubbing, No cyanosis, - - Left lower extremity amputation Skin: Ulcer/ Wound - Stage III pressure ulcer to coccyx with adherent slough, no signs of infection at this time, site is slightly macerated Wound Measurements and Assessment WC - Nurse 1 - General Ulcer Measurement Start: 04/08/19 13:07 Freq: Status: Active Protocol: Activity Type Activity Date Activity User E-Sign Co-Sign Detail Recorded Client Recorded Date Recorded By Document 04/08/19 13:08 [email or web address] [id number] 04/08/19 13:15 RB 04/08/19 13:08 Wound Center Nurse 1 [Ulcer Assessment] #3 Coccyx -Combined with other wound No -Current Size (cm) - Length 1.6 -Current Size (cm) - Width 1.2 -Current Size (cm) - Depth 0.6 -Total Square Cm 1.92 -Tunneling No -Undermining/Tunneling No -Circular Undermining No -Exudate Amt Small -Exudate Type Serosanguineous -Wound Margin Distinct, Outline Attached -Granulation Amt Large (67-100%) -Granulation Quality [place] -Slough/Fibrin Yes -Necrosis Amt Small (1-33%) -Necrotic Tissue Type Adherent Slough -Structure Exposed N/A -Texture (Alexus-wound Skin Appearance) Assessed -Moisture (Alexus-wound Skin Appearance Assessed ) -Color (Alexus-wound Skin Appearance) Assessed -Temperature (Alexus-wound Skin No Abnormality Appearance) (Pt Warm) -Tenderness on Palpation (Alexus-wound No Skin Appearance) -Ulcer Cleansing Wound Cleanser -Foul Odor after Cleansing No -Anesthetic Used 5% Lidocaine Gel WC - Nurse 2 - General Ulcer CM Notes Start: 04/08/19 13:07 Freq: Status: Active Protocol: Activity Type Activity Date Activity User E-Sign Co-Sign Detail Recorded Client Recorded Date Recorded By Document 04/08/19 13:47 AN [id number] 04/08/19 13:49 AN 04/08/19 13:47 Wound Center Nurse 2 [Procedure/Treatment] -Time 13:49 -Correct Patient Yes -Correct Side, Site, Position Yes -Correct Procedure Yes -Procedure Performed Yes -Type of Procedure Debridement -Clinical Debridement Subcutaneous -Post Debridement Size (cm) - Length 1.5 -Post Debridement Size (cm) - Width 1.4 -Post Debridement Size (cm) - Depth 0.5 -Total Square Cm 2.10 -Wound/Ulcer Outcome Not Healed -Treatment Response Procedure Tolerated Well [See Physician Procedure note for Specifics] Pain Scale: 0-10 Numeric [Pain] -Is Patient Pain Free? Yes Musculoskeletal: No Tenderness to Palpation of Joints or Extremities Neurological: Neuro grossly intact Psych/Mental Status: Normal Affect, Appropriate, Alert and oriented to time, place, person, mood and affect Debridement Note Post-Debridement Measurements/Treatment - Nurse 2 - General Ulcer CM Notes Start: 04/08/19 13:07 Freq: Status: Active Protocol: Activity Type Activity Date Activity User E-Sign Co-Sign Detail Recorded Client Recorded Date Recorded By Document 04/08/19 13:47 AN [id number] 04/08/19 13:49 AN 04/08/19 13:47 Wound Center Nurse 2 #3 Coccyx -Time 13:49 -Correct Patient Yes -Correct Side, Site, Position Yes -Correct Procedure Yes -Procedure Performed Yes -Type of Procedure Debridement -Clinical Debridement Subcutaneous -Post Debridement Size (cm) - Length 1.5 -Post Debridement Size (cm) - Width 1.4 -Post Debridement Size (cm) - Depth 0.5 -Total Square Cm 2.10 -Wound/Ulcer Outcome Not Healed -Treatment Response Procedure Tolerated Well Pain Scale: 0-10 Numeric Is Patient Pain Free? Yes Wound debrided: Stage III pressure ulcer to the coccyx Type of Debridement: Excisional debridement Anesthesia Used: 5% Lidocaine Gel Depth: in the subcutaneous layer Percentage of wound debrided: 100 Instrument Used: 5mm curette Tissue Removed: Slough and devitalized tissue Severity: Fat Layer Exposed Amount of bleeding with debridement: Mild Bleeding Controlled with: Pressure Patient tolerated procedure well Assessment/Plan Active Problems Stage III pressure ulcer (Chronic) coccyx Amputation of left lower extremity (Chronic) Immobility (Chronic) Malnutrition (Acute) Assessment: See above diagnoses Plan: The patient was seen and examined at the wound center today. A subcutaneous debridement was performed today. The patient tolerated the procedure well. The patients wound care will consist of: isaac and optifoam daily. A new prescription of the optive foam was given to the patient as she ran out of this and was not utilizing this for the last month. Patient and daughter agree to continue on a palliative wound plan given the multiple wound care failures and patients multiple comorbidities that interfere with wound healing. Discussed this with patient and daughter. Pt to continue with offloading interventions such as turning q2h in bed at night and offloading when sitting, however she is noncompliant with this. previous cultures collected were negative. Baseline bloodwork reviewed and prealbumin was very low, encouraged the use of high protien drinks and to drink at minimum 3-4 ensure drinks per day, however patient is noncompliant with this. Patient educated on the importance of diet on wound healing and instructed to increase protein and vitamin C intake. Patient verbalized understanding. Due to patient's limited mobility and stage III pressure ulcer, she would benefit from the use of a sliding board and the use of a gel cushion for her wheelchair. Orders for the supplies were given. Patient will follow up at wound healing center in 4 weeks or sooner if needed. This note was generated with [employer] dictation software. It may contain incorrect words, spelling, and punctuation that were not noted in checking the note before signing. Code Visit 111xxx-113xx: [id number] Angie subq tissue 20 sq cm/<
--- NOTE | 2019-04-11 11:42 | PN.PCM_ITS ---
(1) Stage III pressure ulcer Status: Chronic Current Visit: Yes Qualifiers: Code(s): L89.93 - Pressure ulcer of unspecified site, stage 3 Comment: coccyx (2) Malnutrition Status: Acute Current Visit: Yes Code(s): E46 - Unspecified protein-calorie malnutrition (3) Amputation of left lower extremity Status: Chronic Current Visit: Yes Qualifiers: Code(s): S88.912A - Complete traumatic amputation of left lower leg, level unspecified, initial encounter (4) Hyperlipidemia Status: Chronic Current Visit: No Code(s): E78.5 - Hyperlipidemia, unspecified (5) Hypertension Status: Chronic Current Visit: No Code(s): I10 - Essential (primary) hypertension (6) Immobility Status: Chronic Current Visit: Yes Code(s): Z74.09 - Other reduced mobility (7) Osteoarthritis of hips, bilateral Status: Chronic Current Visit: No Code(s): M16.0 - Bilateral primary osteoarthritis of hip Type of Wound Date of Service: 04/08/19 Chief Complaint: Stage III pressure 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 She has a past medical history of left bbsxn-dxg-[id number] amputee, DVT, PE with long-term Coumadin anticoagulation, anemia, RA and OA. Patient and family believe the wound started around November 2017 due to pressure and constantly sitting in her chair. Her wound has been noted on multiple hospital admissions in the past. Cultures were previously done in January 2018 and demonstrated staph, Klebsiella, and Proteus and patient completed Levaquin and ampicillin therapy. The patient has also been in and out of the shelter. She is currently residing at home with her . Due to her amputation, her mobility is severely limited and she spends most of her time sitting in either her wheelchair or her reclining chair at home. She does have a hospital bed that she sleeps in at night. She does state that she has an excoriated buttocks as well due to having to scoot from her wheelchair to reclining chair and wheelchair to bed. She has been using Isaac for dressing the wound and is on a palliative traetment plan. She usually follows with Wilbur Gallagher CNP but had to reschedule due to weather. Denies any heavy drainage, though does state that the ulcer bleeds at times. Denies any systemic signs of infection at this time. The patient otherwise denies any fever, chills, nausea, vomiting, shortness of breath, chest pain or pressure, palpitations, orthopnea, lower extremity edema, syncope or presyncopal episodes. Progress of Wound: Size stable, moderate amount of slough present, no signs of infection, patient doing well with palliative wound care, still has difficulty remaining compliant with offloading. - Physical Exam Vital Signs Temp Pulse Resp BP 96.8 F L 82 18 96/48 L 04/08/19 13:08 04/08/19 13:08 04/08/19 13:08 04/08/19 13:08 General: Alert, Oriented x3, Cooperative, No apparent distress HEENT: Atraumatic Lungs: Clear to auscultation Cardiovascular: Regular rate Abdomen: Soft, Non Tender Extremities: No clubbing, No cyanosis, - - Left lower extremity amputation Skin: Ulcer/ Wound - Stage III pressure ulcer to coccyx with adherent slough, no signs of infection at this time, site is slightly macerated Wound Measurements and Assessment WC - Nurse 1 - General Ulcer Measurement Start: 04/08/19 13:07 Freq: Status: Active Protocol: Activity Type Activity Date Activity User E-Sign Co-Sign Detail Recorded Client Recorded Date Recorded By Document 04/08/19 13:08 [email or web address] [id number] 04/08/19 13:15 RB 04/08/19 13:08 Wound Center Nurse 1 [Ulcer Assessment] #3 Coccyx -Combined with other wound No -Current Size (cm) - Length 1.6 -Current Size (cm) - Width 1.2 -Current Size (cm) - Depth 0.6 -Total Square Cm 1.92 -Tunneling No -Undermining/Tunneling No -Circular Undermining No -Exudate Amt Small -Exudate Type Serosanguineous -Wound Margin Distinct, Outline Attached -Granulation Amt Large (67-100%) -Granulation Quality [place] -Slough/Fibrin Yes -Necrosis Amt Small (1-33%) -Necrotic Tissue Type Adherent Slough -Structure Exposed N/A -Texture (Alexus-wound Skin Appearance) Assessed -Moisture (Alexus-wound Skin Appearance Assessed ) -Color (Alexus-wound Skin Appearance) Assessed -Temperature (Alexus-wound Skin No Abnormality Appearance) (Pt Warm) -Tenderness on Palpation (Alexus-wound No Skin Appearance) -Ulcer Cleansing Wound Cleanser -Foul Odor after Cleansing No -Anesthetic Used 5% Lidocaine Gel WC - Nurse 2 - General Ulcer CM Notes Start: 04/08/19 13:07 Freq: Status: Active Protocol: Activity Type Activity Date Activity User E-Sign Co-Sign Detail Recorded Client Recorded Date Recorded By Document 04/08/19 13:47 AN [id number] 04/08/19 13:49 AN 04/08/19 13:47 Wound Center Nurse 2 [Procedure/Treatment] -Time 13:49 -Correct Patient Yes -Correct Side, Site, Position Yes -Correct Procedure Yes -Procedure Performed Yes -Type of Procedure Debridement -Clinical Debridement Subcutaneous -Post Debridement Size (cm) - Length 1.5 -Post Debridement Size (cm) - Width 1.4 -Post Debridement Size (cm) - Depth 0.5 -Total Square Cm 2.10 -Wound/Ulcer Outcome Not Healed -Treatment Response Procedure Tolerated Well [See Physician Procedure note for Specifics] Pain Scale: 0-10 Numeric [Pain] -Is Patient Pain Free? Yes Musculoskeletal: No Tenderness to Palpation of Joints or Extremities Neurological: Neuro grossly intact Psych/Mental Status: Normal Affect, Appropriate, Alert and oriented to time, place, person, mood and affect Debridement Note Post-Debridement Measurements/Treatment - Nurse 2 - General Ulcer CM Notes Start: 04/08/19 13:07 Freq: Status: Active Protocol: Activity Type Activity Date Activity User E-Sign Co-Sign Detail Recorded Client Recorded Date Recorded By Document 04/08/19 13:47 AN [id number] 04/08/19 13:49 AN 04/08/19 13:47 Wound Center Nurse 2 #3 Coccyx -Time 13:49 -Correct Patient Yes -Correct Side, Site, Position Yes -Correct Procedure Yes -Procedure Performed Yes -Type of Procedure Debridement -Clinical Debridement Subcutaneous -Post Debridement Size (cm) - Length 1.5 -Post Debridement Size (cm) - Width 1.4 -Post Debridement Size (cm) - Depth 0.5 -Total Square Cm 2.10 -Wound/Ulcer Outcome Not Healed -Treatment Response Procedure Tolerated Well Pain Scale: 0-10 Numeric Is Patient Pain Free? Yes Wound debrided: Stage III pressure ulcer to the coccyx Type of Debridement: Excisional debridement Anesthesia Used: 5% Lidocaine Gel Depth: in the subcutaneous layer Percentage of wound debrided: 100 Instrument Used: 5mm curette Tissue Removed: Slough and devitalized tissue Severity: Fat Layer Exposed Amount of bleeding with debridement: Mild Bleeding Controlled with: Pressure Patient tolerated procedure well Assessment/Plan Active Problems Stage III pressure ulcer (Chronic) coccyx Amputation of left lower extremity (Chronic) Immobility (Chronic) Malnutrition (Acute) Assessment: See above diagnoses Plan: The patient was seen and examined at the wound center today. A subcutaneous debridement was performed today. The patient tolerated the procedure well. The patients wound care will consist of: isaac and optifoam daily. A new prescription of the optive foam was given to the patient as she ran out of this and was not utilizing this for the last month. Patient and daughter agree to continue on a palliative wound plan given the multiple wound care failures and patients multiple comorbidities that interfere with wound healing. Discussed this with patient and daughter. Pt to continue with offloading interventions such as turning q2h in bed at night and offloading when sitting, however she is noncompliant with this. previous cultures collected were negative. Baseline bloodwork reviewed and prealbumin was very low, encouraged the use of high protien drinks and to drink at minimum 3-4 ensure drinks per day, however patient is noncompliant with this. Patient educated on the importance of diet on wound healing and instructed to increase protein and vitamin C intake. Patient verbalized understanding. Due to patient's limited mobility and stage III pressure ulcer, she would benefit from the use of a sliding board and the use of a gel cushion for her wheelchair. Orders for the supplies were given. Patient will follow up at wound healing center in 4 weeks or sooner if needed. This note was generated with [employer] dictation software. It may contain incorrect words, spelling, and punctuation that were not noted in checking the note before signing. Code Visit 111xxx-113xx: [id number] Angie subq tissue 20 sq cm/<
== END 2019-04-16 23:59 ==
LOC: WC 13:03
PROVIDERS: Family Provider Family Medicine; PCP Family Medicine; Visit Provider Nurse Practitioner Family
DX: L89.153 Pressure ulcer of sacral region, stage 3 (principal); Z89.612 Acquired absence of left leg above knee; E78.5 Hyperlipidemia, unspecified; I10 Essential (primary) hypertension; M16.0 Bilateral primary osteoarthritis of hip; Z86.718 Personal history of other venous thrombosis and embolism; Z86.711 Personal history of pulmonary embolism; Z79.01 Long term (current) use of anticoagulants; M06.9 Rheumatoid arthritis, unspecified
CPT/HCPCS: 11042

== ENCOUNTER 2019-05-13 13:03 | Outpatient (RCR) | payer MEDICARE, OTHER, SELFPAY ==
[2019-04-17 00:44] VITALS: BP 96/48; PULSE 82; RESP 18; TEMP 36
[2019-05-13 13:36] VITALS: BP 117/50; PULSE 74; RESP 18; TEMP 36
--- NOTE | 2019-05-13 19:38 | PN.PCM_ITS ---
(1) Stage III pressure ulcer Status: Chronic Current Visit: Yes Qualifiers: Code(s): L89.93 - Pressure ulcer of unspecified site, stage 3 Comment: coccyx (2) Malnutrition Status: Acute Current Visit: Yes Code(s): E46 - Unspecified protein-calorie malnutrition (3) Amputation of left lower extremity Status: Chronic Current Visit: No Qualifiers: Code(s): S88.912A - Complete traumatic amputation of left lower leg, level unspecified, initial encounter (4) Hypertension Status: Chronic Current Visit: No Code(s): I10 - Essential (primary) hypertension (5) Hypothyroidism Status: Chronic Current Visit: No Code(s): E03.9 - Hypothyroidism, unspecified (6) Immobility Status: Chronic Current Visit: Yes Code(s): Z74.09 - Other reduced mobility (7) Osteoarthritis of hips, bilateral Status: Chronic Current Visit: No Code(s): M16.0 - Bilateral primary osteoarthritis of hip (8) Osteoporosis Status: Chronic Current Visit: No Code(s): M81.0 - Age-related osteoporosis without current pathological fracture Type of Wound Date of Service: 05/13/19 Chief Complaint: Stage III pressure 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 She has a past medical history of left aeuha-tzz-zcbe amputee, DVT, PE with long-term Coumadin anticoagulation, anemia, RA and OA. Patient and family believe the wound started around November 2017 due to pressure and constantly sitting in her chair. Her wound has been noted on multiple hospital admissions in the past. Cultures were previously done in January 2018 and demonstrated staph, Klebsiella, and Proteus and patient completed Levaquin and ampicillin therapy. The patient has also been in and out of the [facility]. She is currently residing at home with her . Due to her amputation, her mobility is severely limited and she spends most of her time sitting in either her wheelchair or her reclining chair at home. She does have a hospital bed that she sleeps in at night. She does state that she has an excoriated buttocks as well due to having to scoot from her wheelchair to reclining chair and wheelchair to bed. She has been using Paola for dressing the wound and is on a palliative traetment plan. She usually follows with Wilbur Gallagher CNP but had to reschedule due to weather. Denies any heavy drainage, though does state that the ulcer bleeds at times. Denies any systemic signs of infection at this time. The patient otherwise denies any fever, chills, nausea, vomiting, shortness of breath, chest pain or pressure, palpitations, orthopnea, lower extremity edema, syncope or presyncopal episodes. Progress of Wound: Size stable, moderate amount of slough present, no signs of infection, patient doing well with palliative wound care, still has difficulty remaining compliant with offloading. - Physical Exam Vital Signs Temp Pulse Resp BP 96.8 F L 74 18 117/50 L 05/13/19 13:36 05/13/19 13:36 05/13/19 13:36 05/13/19 13:36 General: Alert, Oriented x3, Cooperative, No apparent distress HEENT: PERRLA, EOMI Neck: Supple, No JVD Lungs: Clear to auscultation, Normal air movement, No rhonchi, No wheeze Cardiovascular: Regular rate, Regular Rhythm Abdomen: Soft, Non Tender Extremities: No edema, Capillary Refill Less than 3 Seconds Skin: Ulcer/ Wound - Stage III pressure injury noted to the coccyx with adherent soft, small amount of drainage is serous at this time. No obvious signs of this time. Wound Measurements and Assessment WC - Nurse 1 - General Ulcer Measurement Start: 05/13/19 13:34 Freq: Status: Active Protocol: Activity Type Activity Date Activity User E-Sign Co-Sign Detail Recorded Client Recorded Date Recorded By Document 05/13/19 13:36 [id number] 05/13/19 13:43 DL 05/13/19 13:36 Wound Center Nurse 1 [Ulcer Assessment] #3 Coccyx -Current Size (cm) - Length 1.7 -Current Size (cm) - Width 1.2 -Current Size (cm) - Depth 0.4 -Total Square Cm 2.04 -Photo Taken No -Exudate Amt Small -Exudate Type Serosanguineous -Wound Margin Distinct, Outline Attached -Granulation Amt Medium (34-66%) -Granulation Quality [place] -Necrosis Amt Medium (34-66%) -Necrotic Tissue Type Adherent Slough -Structure Exposed N/A -Texture (Alexus-wound Skin Appearance) Scarring -Moisture (Alexus-wound Skin Appearance No Abnormality ) -Color (Alexus-wound Skin Appearance) No Abnormality -Temperature (Alexus-wound Skin No Abnormality Appearance) (Pt Warm) -Tenderness on Palpation (Alexus-wound No Skin Appearance) -Ulcer Cleansing Rinsed/ Irrigated with Saline -Foul Odor after Cleansing No -Anesthetic Used 5% Lidocaine Gel - Nurse 2 - General Ulcer CM Notes Start: 05/13/19 13:34 Freq: Status: Active Protocol: Activity Type Activity Date Activity User E-Sign Co-Sign Detail Recorded Client Recorded Date Recorded By Document 05/13/19 14:19 AN [id number] 05/13/19 14:20 AN 05/13/19 14:19 Wound Center Nurse 2 [Procedure/Treatment] -Time 14:19 -Correct Patient Yes -Correct Side, Site, Position Yes -Correct Procedure Yes -Procedure Performed Yes -Type of Procedure Debridement -Clinical Debridement Subcutaneous -Post Debridement Size (cm) - Length 1.3 -Post Debridement Size (cm) - Width 1.4 -Post Debridement Size (cm) - Depth 0.4 -Total Square Cm 1.82 -Wound/Ulcer Outcome Not Healed -Ulcer Cleansing Rinsed/ Irrigated with Saline -Foul Odor after Cleansing No -Bioengineered Tissue No -Bleeding Controlled with Pressure -Offloading Yes -Treatment Response Procedure Tolerated Well [See Physician Procedure note for Specifics] Pain Scale: 0-10 Numeric [Pain] -Is Patient Pain Free? Yes Musculoskeletal: Muscle Wasting Neurological: Neuro grossly intact, - - Patient is wheelchair-bound Psych/Mental Status: Normal Affect, Appropriate, Alert and oriented to time, place, person, mood and affect Debridement Note Post-Debridement Measurements/Treatment - Nurse 2 - General Ulcer CM Notes Start: 05/13/19 13:34 Freq: Status: Active Protocol: Activity Type Activity Date Activity User E-Sign Co-Sign Detail Recorded Client Recorded Date Recorded By Document 05/13/19 14:19 AN [id number] 05/13/19 14:20 AN 05/13/19 14:19 Wound Center Nurse 2 #3 Coccyx -Time 14:19 -Correct Patient Yes -Correct Side, Site, Position Yes -Correct Procedure Yes -Procedure Performed Yes -Type of Procedure Debridement -Clinical Debridement Subcutaneous -Post Debridement Size (cm) - Length 1.3 -Post Debridement Size (cm) - Width 1.4 -Post Debridement Size (cm) - Depth 0.4 -Total Square Cm 1.82 -Wound/Ulcer Outcome Not Healed -Ulcer Cleansing Rinsed/ Irrigated with Saline -Foul Odor after Cleansing No -Bioengineered Tissue No -Bleeding Controlled with Pressure -Offloading Yes -Treatment Response Procedure Tolerated Well Pain Scale: 0-10 Numeric Is Patient Pain Free? Yes Wound debrided: Stage III pressure injury coccyx Type of Debridement: Excisional debridement Anesthesia Used: 5% Lidocaine Gel Depth: Down to and including healthy tissue, in the subcutaneous layer Percentage of wound debrided: 100 Instrument Used: 5mm curette Tissue Removed: Slough and devitalized tissue Severity: Fat Layer Exposed Amount of bleeding with debridement: Mild Bleeding Controlled with: Pressure Patient tolerated procedure well Assessment/Plan Active Problems Stage III pressure ulcer (Chronic) coccyx Immobility (Chronic) Malnutrition (Acute) Assessment: See above diagnoses Plan: The patient was seen and examined at the wound center today. A subcutaneous debridement was performed today. The patient tolerated the procedure well. The patients wound care will consist of: promogran and optifoam daily. Patient and daughter agree to continue on a palliative wound plan given the multiple wound care failures and patients multiple comorbidities that interfere with wound healing. Discussed this with patient and daughter. Pt to continue with offloading interventions such as turning q2h in bed at night and offloading when sitting, however she is noncompliant with this. previous cultures collected were negative. Baseline bloodwork reviewed and prealbumin was very low, encouraged the use of high protien drinks and to drink at minimum 3-4 ensure drinks per day, however patient is noncompliant with this. Patient educated on the importance of diet on wound healing and instructed to increase protein and vitamin C intake. Patient verbalized understanding. Due to patient's limited mobility and stage III pressure ulcer, she would benefit from the use of a sliding board and the use of a gel cushion for her wheelchair. Orders for the supplies were given. Patient will follow up at wound healing center in 4 weeks or sooner if needed. This note was generated with [employer] software. It may contain incorrect words, spelling, and punctuation that were not noted in checking the note before signing. Code Visit 111xxx-113xx: [id number] Angie subq tissue 20 sq cm/<
== END 2019-05-16 23:59 ==
LOC: WC 13:03
PROVIDERS: Family Provider Family Medicine; PCP Family Medicine; Visit Provider Nurse Practitioner Family
DX: L89.153 Pressure ulcer of sacral region, stage 3 (principal); I10 Essential (primary) hypertension; Z89.612 Acquired absence of left leg above knee; M16.0 Bilateral primary osteoarthritis of hip; Z86.711 Personal history of pulmonary embolism; Z86.718 Personal history of other venous thrombosis and embolism; Z79.01 Long term (current) use of anticoagulants; M06.9 Rheumatoid arthritis, unspecified; Z99.3 Dependence on wheelchair
CPT/HCPCS: 11042

== ENCOUNTER 2019-05-25 17:38 | Emergency (ER) | payer MEDICARE, OTHER, SELFPAY ==
[2019-05-25 17:39] VITALS: BP 146/62; PULSE 89; RESP 16; TEMP 37; O2SAT 98; BMI 17.7
--- NOTE | 2019-05-25 18:02 | CT_ITS ---
STUDY: CT ABDOMEN AND PELVIS WITH CONTRAST REASON FOR EXAM: Female, 83 years old. Pain. RADIATION DOSAGE (If Supplied By Facility): CTDIvol = ( 9.85 ) mGy, DLP = ( 583.53 ) mGycm TECHNIQUE: Transaxial images were obtained from the dome of the diaphragm to the symphysis pubis without oral contrast. 75ml IV Isovue 300 was administered. Sagittal and coronal images were reconstructed. Individualized dose optimization techniques were used for this CT. COMPARISON: None. FINDINGS: There are chronic interstitial fibrotic changes of the lung bases. The visualized portions of the heart are within normal limits. Normal liver. There are surgical clips in the gallbladder fossa consistent with a prior cholecystectomy. There are multiple benign calcified granulomata of the spleen. Normal pancreas. Normal bilateral adrenal glands. Normal right kidney. Normal left kidney. There is a moderate hiatal hernia. Normal small intestine. Normal colon. There is non-visualization of the appendix. There is diffuse atherosclerotic calcification of the abdominal aorta, without a demonstrated aneurysm. Normal inferior vena cava. Normal retroperitoneum. Normal urinary bladder. There is atrophy of the uterus. There is no free fluid in the abdomen or pelvis. Normal abdominal wall. There is scoliosis with degenerative change of the spine. There is an L5 compression fracture with severe loss of height in the central aspect. There are bilateral hip replacements. There is 3.1 cm fluid collection at the right gluteus musculature. CT/Abdomen/Pelvis W IV Cont ONLY IMPRESSION: Hiatal hernia. No obstruction. Electronically Signed: Artie Pittman MD at 19:16 EDT , Service support ,
--- NOTE | 2019-05-25 18:04 | ED.VISSUMM ---
- ER Visit Summary Date of Service: 05/25/19 Chief Complaint: Abdominal pain History of Present Illness: The patient is a 83 F presenting with intermittent abdominal pain. She states this has been going on for several weeks. She states today she was using the bathroom and straining. She felt a bulge in her lower abdomen. She was able to push this back in. She states this did not come out her vagina as triage noted. States she has felt this bulge in the past couple weeks and has been able to push it back in. She has not seen her primary care physician for the symptoms. Denies other complaints. Physical Examination: Vitals are stable. Patient is afebrile. Alert no acute distress. HEENT exam is unremarkable. Neck is supple. Lungs are clear and equal bilaterally. Heart is regular rate and rhythm. Abdomen is soft suprapubic tenderness with no guarding or rebound Back: Coccyx decubitus ulcer Extremities are unremarkable. Skin is warm and dry. No focal neurologic deficit. Remainder of exam is unremarkable. Emergency Department Course and Treatment: CBC normal except hemoglobin 8.9 which is at her baseline. Chemistries show potassium 3.2. INR 2.4. Urinalysis shows 26-50 white blood cells, 0-5 epithelial cells. Urine culture was sent. CT abdomen pelvis shows hiatal hernia. No obstruction. Per family, her coccyx ulcer is similar to baseline. She is followed at the wound center for this. Her abdominal pain is now resolved. Discussed with Dr. Zhu and recommends outpatient follow-up. She is given Macrobid. She is advised to follow with Dr. Zhu and Dr. Wheeler. Advised return to ED for worsening complaints. Disposition: Discharge home Impression: Abdominal pain, resolved; UTI This note was generated with [employer] dictation software. It may contain incorrect words, spelling, and punctuation that were not noted in review of the chart prior to signing ED Disposition - Plan for ED Patient: Instructions: ABDOMINAL PAIN, Unknown Cause, (Female) Prescriptions: Nitrofurantoin Macrocrystals [Macrobid] 100 mg PO Q12 #14 cap Prescription Printed Referrals: Seferino Wheeler III, MD [Primary Care Provider] - Carl Zhu MD [STAFF PHYSICIAN] -
[2019-05-25 18:23] LABS: Absolute Lymphocyte Count 1.56 X10^3/ul (0.83-4.51); Absolute Neutrophil Count 5.5 X10^3/uL (2.0-7.7); Basophil# 0.04 X10^3/uL; Basophil% 0.5 % (0-1); Eosinophil# 0.12 X10^3/uL; Eosinophils% 1.5 % (0-5); Hemoglobin 8.9 g/dl (12.0-15.0); Lymphocyte # 1.56 X10^3/ul (4.0); Mean Corp Hgb Conc 29.7 g/gl (32-36); Mean Corpuscular Volume 77.5 fL (81-99); Mean Platelet Vol. 8.2 fl (6.2-12.0); Monocyte# 0.53 X10^3/uL; Monocyte% 6.8 % (0-10); Neutrophil # 5.53 X10^3/uL (2.7-7.7); Neutrophil % 71.1 % (47-70); Platelet Count 454 K/mm3 (150-450); RBC Distribution Width CV 17.9 % (11.6-14.6); RBC Distribution Width SD 50.9 fl (35.1-43.9); Red Blood Count 3.87 M/mm3 (4.2-5.4); White Blood Count 7.8 K/mm3 (4.4-11.0)
[2019-05-25 18:26] LABS: POSITIVE COUNT NO; POSITIVE DIFFERENTIAL NO; POSITIVE MORPHOLOGY NO
[2019-05-25 18:30] LABS: International Normalized Ratio 2.4; Prothrombin Time (Protime)PT. 26.5 SECONDS (11.7-14.9)
[2019-05-25 18:39] LABS: Anion Gap 5 (5-15); BUN 13 mg/dL (7-18); BUN/Creat Ratio 23.7 RATIO (10-20); Calcium,Total 8.2 mg/dL (8.5-10.1); Chloride 105 mmol/L (98-107); Creatinine, Serum 0.55 mg/dL (0.55-1.02); EST Glomerular Filtration Rate 113 mL/min (>60); Est Glom Filt Rate - Afr Amer 137 mL/min (>60); Estimated Creatinine Clearance 32.74 ml/min; Glucose 100 mg/dL (74-106); Potassium 3.2 mmol/L (3.5-5.1); Sodium Level 140 mmol/L (136-145)
--- NOTE | 2019-05-25 19:10 | ED.RN ---
PT HAS DIME SIZE DECUBITUS ULCER ON COCCYX THAT PT REPORTS IS CHRONIC. SHE REPORTS BEING SEEN AT THE WOUND CENTER.
[2019-05-25 19:13] LABS: Mucous, Urine 0 SEEN /hpf (<or=2+)
[2019-05-25 19:16] LABS: Color, Urine Yellow (Yellow); Glucose, Dipstick Normal (Normal); Ketone-Dipstick Negative (Negative); Leukocyte Esterase-Dipstick 500 /ul (Negative); Nitrite-Dipstick Positive (Negative); Occult Blood-Urine 25 /ul (Negative); Protein-Dipstick Negative (Negative); Urine Bilirubin Dipstick Negative (Negative); Urine Clarity Clear (Clear); Urine Urobilinogen Normal (Normal)
[2019-05-25 19:26] LABS: Bacteria 2+ /hpf (None Seen); Red Blood Cells-Urine 0-5 SEEN /hpf (0-5); Squamous Epithelial Cells - UA 0-5 SEEN /hpf (5-10); White Blood Cells 25-50 SEEN /hpf (0-5)
--- NOTE | 2019-05-25 21:07 | ED.DEP ---
ED Disposition - Plan for ED Patient: Instructions: ABDOMINAL PAIN, Unknown Cause, (Female) Prescriptions: Nitrofurantoin Macrocrystals [Macrobid] 100 mg PO Q12 #14 capsule Referrals: Seferino Wheeler III, MD [Primary Care Provider] - Carl Zhu MD [STAFF PHYSICIAN] -
[2019-05-25] MEDS: Nitrofurantoin Macrocrystals 100 MG Capsule PO (21:12)
[2019-05-25 21:42] VITALS: BP 135/60; RESP 18; O2SAT 94
== END 2019-05-25 21:35 | disposition home or self-care (01) ==
LOC: ED 18:20
PROVIDERS: Emergency Provider Emergency Medicine; Family Provider Family Medicine; PCP Family Medicine
DX: N39.0 Urinary tract infection, site not specified (principal); R10.30 Lower abdominal pain, unspecified; L89.159 Pressure ulcer of sacral region, unspecified stage; K44.9 Diaphragmatic hernia without obstruction or gangrene; I10 Essential (primary) hypertension; E78.00 Pure hypercholesterolemia, unspecified; Z86.718 Personal history of other venous thrombosis and embolism; Z79.01 Long term (current) use of anticoagulants; Z79.899 Other long term (current) drug therapy
CPT/HCPCS: 74177; 80048; 81001; 85025; 85610; 87086; 87088; 87186; 99285; Q9967; A4216

== ENCOUNTER 2019-06-10 09:31 | Outpatient (RCR) | payer MEDICARE, OTHER, SELFPAY ==
[2019-05-17 00:30] VITALS: BP 117/50; PULSE 74; RESP 18; TEMP 36
[2019-06-10 13:12] VITALS: BP 92/43; PULSE 69; RESP 18; TEMP 36.2; BMI 17.7
--- NOTE | 2019-06-10 20:48 | PN.PCM_ITS ---
(1) Stage III pressure ulcer Status: Chronic Current Visit: Yes Qualifiers: Code(s): L89.93 - Pressure ulcer of unspecified site, stage 3 Comment: coccyx (2) Iron (Fe) deficiency anemia Status: Acute Current Visit: No Code(s): D50.9 - Iron deficiency anemia, unspecified (3) Malnutrition Status: Acute Current Visit: No Code(s): E46 - Unspecified protein-calorie malnutrition (4) Amputation of left lower extremity Status: Chronic Current Visit: No Qualifiers: Code(s): S88.912A - Complete traumatic amputation of left lower leg, level unspecified, initial encounter (5) Hypertension Status: Chronic Current Visit: No Code(s): I10 - Essential (primary) hypertension (6) Immobility Status: Chronic Current Visit: No Code(s): Z74.09 - Other reduced mobility Type of Wound Date of Service: 06/10/19 Chief Complaint: Stage III pressure 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 She has a past medical history of left yrpke-yhc-vpzl amputee, DVT, PE with long-term Coumadin anticoagulation, anemia, RA and OA. Patient and family believe the wound started around November 2017 due to pressure and constantly sitting in her chair. Her wound has been noted on multiple hospital admissions in the past. Cultures were previously done in January 2018 and demonstrated staph, Klebsiella, and Proteus and patient completed Levaquin and ampicillin therapy. The patient has also been in and out of the group home. She is currently residing at home with her . Due to her amputation, her mobility is severely limited and she spends most of her time sitting in either her wheelchair or her reclining chair at home. She does have a hospital bed that she sleeps in at night. She does state that she has an excoriated buttocks as well due to having to scoot from her wheelchair to reclining chair and wheelchair to bed. She has been using Paola for dressing the wound and is on a palliative traetment plan. She usually follows with Wilbur Gallagher CNP but had to reschedule due to weather. Denies any heavy drainage, though does state that the ulcer bleeds at times. Denies any systemic signs of infection at this time. The patient otherwise denies any fever, chills, nausea, vomiting, shortness of breath, chest pain or pressure, palpitations, orthopnea, lower extremity edema, syncope or presyncopal episodes. Progress of Wound: Size stable, moderate amount of slough present, no signs of infection, patient doing well with palliative wound care, still has difficulty remaining compliant with offloading. Patient does state that she was recently diagnosed with a left inguinal hernia and is considering whether or not to have surgery for repair. - Physical Exam Vital Signs Temp Pulse Resp BP 97.2 F L 69 18 92/43 L 06/10/19 13:12 06/10/19 13:12 06/10/19 13:12 06/10/19 13:12 General: Alert, Oriented x3, Cooperative, No apparent distress HEENT: Atraumatic Oral: Moist Mucosa Lungs: Clear to auscultation Cardiovascular: Regular rate Abdomen: Soft, Non Tender Extremities: - - Left lower extremity amputation Skin: Ulcer/ Wound - Ulceration present to sacral region with adherent slough, no signs of infection at this time Wound Measurements and Assessment WC - Nurse 1 - General Ulcer Measurement Start: 06/10/19 13:11 Freq: Status: Active Protocol: Activity Type Activity Date Activity User E-Sign Co-Sign Detail Recorded Client Recorded Date Recorded By Document 06/10/19 13:12 [facility] [id number] 06/10/19 13:17 [facility] 06/10/19 13:12 Wound Center Nurse 1 [Ulcer Assessment] #3 Coccyx -Combined with other wound No -Current Size (cm) - Length 1.5 -Current Size (cm) - Width 1.6 -Current Size (cm) - Depth 0.3 -Total Square Cm 2.40 -Photo Taken No -Epithelialization None Present -Tunneling No -Undermining/Tunneling No -Circular Undermining No -Exudate Amt Small -Exudate Type Sanguineous -Wound Margin Distinct, Outline Attached -Granulation Amt Large (67-100%) -Granulation Quality Red -Slough/Fibrin Yes -Necrosis Amt Small (1-33%) -Necrotic Tissue Type Adherent Slough -Texture (Alexus-wound Skin Appearance) Assessed, Scarring -Moisture (Alexus-wound Skin Appearance Assessed ) -Color (Alexus-wound Skin Appearance) Assessed -Temperature (Alexus-wound Skin No Abnormality Appearance) (Pt Warm) -Tenderness on Palpation (Alexus-wound No Skin Appearance) -Ulcer Cleansing Rinsed/ Irrigated with Saline -Foul Odor after Cleansing No -Anesthetic Used 5% Lidocaine Gel WC - Nurse 2 - General Ulcer CM Notes Start: 06/10/19 13:11 Freq: Status: Active Protocol: Activity Type Activity Date Activity User E-Sign Co-Sign Detail Recorded Client Recorded Date Recorded By Document 06/10/19 13:39 AN [id number] 06/10/19 13:40 AN 06/10/19 13:39 Wound Center Nurse 2 [Procedure/Treatment] -Time 13:39 -Correct Patient Yes -Correct Side, Site, Position Yes -Correct Procedure Yes -Procedure Performed Yes -Type of Procedure Debridement -Clinical Debridement Subcutaneous -Post Debridement Size (cm) - Length 1.1 -Post Debridement Size (cm) - Width 1.2 -Post Debridement Size (cm) - Depth 0.3 -Total Square Cm 1.32 -Wound/Ulcer Outcome Not Healed -Ulcer Cleansing Rinsed/ Irrigated with Saline -Foul Odor after Cleansing No -Bioengineered Tissue No -Bleeding Controlled with Pressure -Offloading No -Treatment Response Procedure Tolerated Well [See Physician Procedure note for Specifics] Pain Scale: 0-10 Numeric [Pain] -Is Patient Pain Free? Yes Musculoskeletal: Muscle Wasting Neurological: Neuro grossly intact Psych/Mental Status: Normal Affect, Appropriate, Alert and oriented to time, place, person, mood and affect Debridement Note Post-Debridement Measurements/Treatment - Nurse 2 - General Ulcer CM Notes Start: 06/10/19 13:11 Freq: Status: Active Protocol: Activity Type Activity Date Activity User E-Sign Co-Sign Detail Recorded Client Recorded Date Recorded By Document 06/10/19 13:39 AN [id number] 06/10/19 13:40 AN 06/10/19 13:39 Wound Center Nurse 2 #3 Coccyx -Time 13:39 -Correct Patient Yes -Correct Side, Site, Position Yes -Correct Procedure Yes -Procedure Performed Yes -Type of Procedure Debridement -Clinical Debridement Subcutaneous -Post Debridement Size (cm) - Length 1.1 -Post Debridement Size (cm) - Width 1.2 -Post Debridement Size (cm) - Depth 0.3 -Total Square Cm 1.32 -Wound/Ulcer Outcome Not Healed -Ulcer Cleansing Rinsed/ Irrigated with Saline -Foul Odor after Cleansing No -Bioengineered Tissue No -Bleeding Controlled with Pressure -Offloading No -Treatment Response Procedure Tolerated Well Pain Scale: 0-10 Numeric Is Patient Pain Free? Yes Wound debrided: Stage III pressure injury coccyx Type of Debridement: Excisional debridement Anesthesia Used: 5% Lidocaine Gel Depth: in the subcutaneous layer Percentage of wound debrided: 100 Instrument Used: 5mm curette Tissue Removed: Slough and devitalized tissue Severity: Fat Layer Exposed Amount of bleeding with debridement: Mild Bleeding Controlled with: Pressure Patient tolerated procedure well Assessment/Plan Active Problems Stage III pressure ulcer (Chronic) coccyx Assessment: See above diagnoses Plan: The patient was seen and examined at the wound center today. A subcutaneous debridement was performed today. The patient tolerated the procedure well. The patients wound care will consist of: promogran and optifoam daily. Patient and daughter agree to continue on a palliative wound plan given the multiple wound care failures and patients multiple comorbidities that interfere with wound healing. Discussed this with patient and daughter. Pt to continue with offloading interventions such as turning q2h in bed at night and offloading when sitting, however she is noncompliant with this. previous cultures collected were negative. Baseline bloodwork reviewed and prealbumin was very low, encouraged the use of high protien drinks and to drink at minimum 3-4 ensure drinks per day, however patient is noncompliant with this. Patient educated on the importance of diet on wound healing and instructed to increase protein and vitamin C intake. Patient verbalized understanding. Due to patient's limited mobility and stage III pressure ulcer, she would benefit from the use of a sliding board and the use of a gel cushion for her wheelchair. Orders for the supplies were given. Patient will follow up at wound healing center in 4 weeks or sooner if needed. This note was generated with [employer] dictation software. It may contain incorrect words, spelling, and punctuation that were not noted in checking the note before signing. Code Visit 111xxx-113xx: 36593 Angie subq tissue 20 sq cm/<
== END 2019-06-16 23:59 ==
LOC: WC 09:31
PROVIDERS: Family Provider Family Medicine; PCP Family Medicine; Visit Provider Nurse Practitioner Family
DX: L89.153 Pressure ulcer of sacral region, stage 3 (principal); I10 Essential (primary) hypertension; Z86.711 Personal history of pulmonary embolism; Z86.718 Personal history of other venous thrombosis and embolism; Z79.01 Long term (current) use of anticoagulants; M06.9 Rheumatoid arthritis, unspecified; M19.90 Unspecified osteoarthritis, unspecified site; Z89.612 Acquired absence of left leg above knee
CPT/HCPCS: 11042

== ENCOUNTER 2019-07-08 13:14 | Outpatient (RCR) | payer MEDICARE, OTHER, SELFPAY ==
[2019-06-17 00:35] VITALS: BP 92/43; PULSE 69; RESP 18; TEMP 36.2
[2019-07-08 13:19] VITALS: BP 114/53; PULSE 67; RESP 18; TEMP 36.4; BMI 17.7
--- NOTE | 2019-07-08 15:00 | PN.PCM_ITS ---
(1) Stage III pressure ulcer Status: Chronic Current Visit: Yes Qualifiers: Code(s): L89.93 - Pressure ulcer of unspecified site, stage 3 Comment: coccyx (2) Anemia Status: Acute Current Visit: No Code(s): D64.9 - Anemia, unspecified (3) Malnutrition Status: Acute Current Visit: Yes Code(s): E46 - Unspecified protein-calorie malnutrition (4) Amputation of left lower extremity Status: Chronic Current Visit: Yes Qualifiers: Code(s): S88.912A - Complete traumatic amputation of left lower leg, level unspecified, initial encounter (5) Hypertension Status: Chronic Current Visit: No Code(s): I10 - Essential (primary) hypertension (6) Immobility Status: Chronic Current Visit: Yes Code(s): Z74.09 - Other reduced mobility Type of Wound Date of Service: 07/08/19 Chief Complaint: Stage III pressure 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 She has a past medical history of left [id number] amputee, DVT, PE with long-term Coumadin anticoagulation, anemia, RA and OA. Patient and family believe the wound started around November 2017 due to pressure and constantly sitting in her chair. Her wound has been noted on multiple hospital admissions in the past. Cultures were previously done in January 2018 and demonstrated staph, Klebsiella, and Proteus and patient completed Levaquin and ampicillin therapy. The patient has also been in and out of the correction. She is currently residing at home with her . Due to her amputation, her mobility is severely limited and she spends most of her time sitting in either her wheelchair or her reclining chair at home. She does have a hospital bed that she sleeps in at night. She does state that she has an excoriated buttocks as well due to having to scoot from her wheelchair to reclining chair and wheelchair to bed. She has been using Paola for dressing the wound and is on a palliative treatment plan. Denies any heavy drainage, though does state that the ulcer bleeds at times. Denies any systemic signs of infection at this time. The patient otherwise denies any fever, chills, nausea, vomiting, shortness of breath, chest pain or pressure, palpitations, orthopnea, lower extremity edema, syncope or presyncopal episodes. Progress of Wound: Size stable, moderate amount of slough present, no signs of infection, patient doing well with palliative wound care, still has difficulty remaining compliant with offloading. - Physical Exam Vital Signs Temp Pulse Resp BP 97.5 F L 67 18 114/53 L 07/08/19 13:19 07/08/19 13:19 07/08/19 13:19 07/08/19 13:19 General: Alert, Oriented x3, Cooperative, No apparent distress HEENT: Atraumatic Lungs: Clear to auscultation Cardiovascular: Regular rate Abdomen: Soft, Non Tender Extremities: No clubbing, No cyanosis, No edema Skin: Ulcer/ Wound - Ulceration to coccyx with adherant slough, no signs of infection at this time. Wound Measurements and Assessment WC - Nurse 1 - General Ulcer Measurement Start: 07/08/19 13:19 Freq: Status: Active Protocol: Activity Type Activity Date Activity User E-Sign Co-Sign Detail Recorded Client Recorded Date Recorded By Document 07/08/19 13:19 DL [id number] 07/08/19 13:26 DL 07/08/19 13:19 Wound Center Nurse 1 [Ulcer Assessment] #3 Coccyx -Current Size (cm) - Length 1.1 -Current Size (cm) - Width 1.2 -Current Size (cm) - Depth 0.2 -Total Square Cm 1.32 -Photo Taken No -Exudate Amt Small -Exudate Type Serosanguineous -Wound Margin Distinct, Outline Attached -Granulation Amt Large (67-100%) -Granulation Quality [place] -Necrosis Amt Small (1-33%) -Necrotic Tissue Type Adherent Slough -Structure Exposed N/A -Texture (Alexus-wound Skin Appearance) Scarring -Moisture (Alexus-wound Skin Appearance No Abnormality ) -Color (Alexus-wound Skin Appearance) No Abnormality -Temperature (Alexus-wound Skin No Abnormality Appearance) (Pt Warm) -Tenderness on Palpation (Alexus-wound No Skin Appearance) -Ulcer Cleansing Rinsed/ Irrigated with Saline -Foul Odor after Cleansing No -Anesthetic Used 5% Lidocaine Gel Musculoskeletal: - - LLE amputation Neurological: Neuro grossly intact Psych/Mental Status: Normal Affect, Appropriate, Alert and oriented to time, place, person, mood and affect Debridement Note Wound debrided: Stage 3 pressure injury coccyx Laterality: Not Applicable Type of Debridement: Excisional debridement Anesthesia Used: 5% Lidocaine Gel Depth: in the subcutaneous layer Percentage of wound debrided: 100 Instrument Used: 5mm curette Tissue Removed: slough and devitalized tissue Severity: Fat Layer Exposed Amount of bleeding with debridement: Mild Bleeding Controlled with: Pressure Patient tolerated procedure well Assessment/Plan Active Problems Stage III pressure ulcer (Chronic) coccyx Amputation of left lower extremity (Chronic) Immobility (Chronic) Malnutrition (Acute) Assessment: See above diagnoses Plan: The patient was seen and examined at the wound center today. A subcutaneous debridement was performed today. The patient tolerated the procedure well. The patients wound care will consist of: promogran and optifoam daily. Patient and daughter agree to continue on a palliative wound plan given the multiple wound care failures and patients multiple comorbidities that interfere with wound healing. Discussed this with patient and daughter. Pt to continue with offloading interventions such as turning q2h in bed at night and offloading when sitting, however she is noncompliant with this. previous cultures collected were negative. Baseline bloodwork reviewed and prealbumin was very low, encouraged the use of high protien drinks and to drink at minimum 3-4 ensure drinks per day, however patient is noncompliant with this. Patient educated on the importance of diet on wound healing and instructed to increase protein and vitamin C intake. Patient verbalized understanding. Due to patient's limited mobility and stage III pressure ulcer, she would benefit from the use of a sliding board and the use of a gel cushion for her wheelchair. Orders for the supplies were given. Patient will follow up at wound healing center in 4 weeks or sooner if needed. This note was generated with [employer] dictation software. It may contain incorrect words, spelling, and punctuation that were not noted in checking the note before signing. Code Visit 111xxx-113xx: 96070 Angie subq tissue 20 sq cm/<
== END 2019-07-17 23:59 ==
LOC: WC 13:14
PROVIDERS: Family Provider Family Medicine; PCP Family Medicine; Visit Provider Nurse Practitioner Family
DX: L89.153 Pressure ulcer of sacral region, stage 3 (principal); I10 Essential (primary) hypertension; Z86.711 Personal history of pulmonary embolism; Z86.718 Personal history of other venous thrombosis and embolism; Z79.01 Long term (current) use of anticoagulants; M19.90 Unspecified osteoarthritis, unspecified site; M06.9 Rheumatoid arthritis, unspecified; Z91.19 Patient's noncompliance with other medical treatment and regimen
CPT/HCPCS: 11042

== ENCOUNTER 2019-08-05 09:58 | Outpatient (RCR) | payer MEDICARE, OTHER, SELFPAY ==
[2019-07-18 00:30] VITALS: BP 114/53; PULSE 67; RESP 18; TEMP 36.4
[2019-08-05 13:04] VITALS: BP 102/41; PULSE 69; RESP 16; TEMP 36.6; BMI 17.7
--- NOTE | 2019-08-05 14:09 | PCM.WC.PN ---
(1) Stage III pressure ulcer Status: Chronic Current Visit: Yes Qualifiers: Code(s): L89.93 - Pressure ulcer of unspecified site, stage 3 Comment: coccyx (2) Anemia Status: Acute Current Visit: No Code(s): D64.9 - Anemia, unspecified (3) Excoriation of buttock Status: Acute Current Visit: No Qualifiers: Code(s): S30.810A - Abrasion of lower back and pelvis, initial encounter (4) Iron (Fe) deficiency anemia Status: Acute Current Visit: No Code(s): D50.9 - Iron deficiency anemia, unspecified (5) Malnutrition Status: Acute Current Visit: Yes Code(s): E46 - Unspecified protein-calorie malnutrition (6) Amputation of left lower extremity Status: Chronic Current Visit: Yes Qualifiers: Code(s): S88.912A - Complete traumatic amputation of left lower leg, level unspecified, initial encounter (7) Immobility Status: Chronic Current Visit: Yes Code(s): Z74.09 - Other reduced mobility Type of Wound Date of Service: 08/05/19 Chief Complaint: Stage III pressure 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 She has a past medical history of left cjcyx-gle-qnrj amputee, DVT, PE with long-term Coumadin anticoagulation, anemia, RA and OA. Patient and family believe the wound started around November 2017 due to pressure and constantly sitting in her chair. Her wound has been noted on multiple hospital admissions in the past. Cultures were previously done in January 2018 and demonstrated staph, Klebsiella, and Proteus and patient completed Levaquin and ampicillin therapy. The patient has also been in and out of the [facility]. She is currently residing at home with her . Due to her amputation, her mobility is severely limited and she spends most of her time sitting in either her wheelchair or her reclining chair at home. She does have a hospital bed that she sleeps in at night. She does state that she has an excoriated buttocks as well due to having to scoot from her wheelchair to reclining chair and wheelchair to bed. She has been using Paola for dressing the wound and is on a palliative treatment plan. Denies any heavy drainage, though does state that the ulcer bleeds at times. Denies any systemic signs of infection at this time. The patient otherwise denies any fever, chills, nausea, vomiting, shortness of breath, chest pain or pressure, palpitations, orthopnea, lower extremity edema, syncope or presyncopal episodes. Progress of Wound: Size stable, moderate amount of slough present, no signs of infection, patient doing well with palliative wound care, still has difficulty remaining compliant with offloading. - Physical Exam Vital Signs Temp Pulse Resp BP 98 F 69 16 102/41 L 08/05/19 13:04 08/05/19 13:04 08/05/19 13:04 08/05/19 13:04 General: Alert, Oriented x3, Cooperative, No apparent distress HEENT: Atraumatic Oral: Moist Mucosa Lungs: Clear to auscultation Cardiovascular: Regular rate Abdomen: Soft, Non Tender Extremities: No clubbing, No cyanosis, No edema, - - Left BKA Skin: Ulcer/ Wound Wound Measurements and Assessment WC - Nurse 1 - General Ulcer Measurement Start: 08/05/19 13:04 Freq: Status: Active Protocol: Activity Type Activity Date Activity User E-Sign Co-Sign Detail Recorded Client Recorded Date Recorded By Document 08/05/19 13:04 [facility] [id number] 08/05/19 13:07 [facility] 08/05/19 13:04 Wound Center Nurse 1 [Ulcer Assessment] #3 Coccyx -Combined with other wound No -Current Size (cm) - Length 1.5 -Current Size (cm) - Width 1 -Current Size (cm) - Depth 0.6 -Total Square Cm 1.5 -Photo Taken No -Epithelialization None Present -Tunneling No -Undermining/Tunneling No -Circular Undermining No -Exudate Amt Small -Exudate Type Sanguineous -Wound Margin Distinct, Outline Attached -Granulation Amt Medium (34-66%) -Granulation Quality Red -Slough/Fibrin Yes -Necrosis Amt Medium (34-66%) -Necrotic Tissue Type Adherent Slough -Texture (Alexus-wound Skin Appearance) Assessed, Scarring -Moisture (Alexus-wound Skin Appearance Assessed ) -Color (Alexus-wound Skin Appearance) Assessed, Erythema -Temperature (Alexus-wound Skin No Abnormality Appearance) (Pt Warm) -Tenderness on Palpation (Alexus-wound No Skin Appearance) -Ulcer Cleansing Rinsed/ Irrigated with Saline -Foul Odor after Cleansing No -Anesthetic Used 5% Lidocaine Gel WC - Nurse 2 - General Ulcer CM Notes Start: 08/05/19 13:04 Freq: Status: Active Protocol: Activity Type Activity Date Activity User E-Sign Co-Sign Detail Recorded Client Recorded Date Recorded By Document 08/05/19 13:35 AN [id number] 08/05/19 13:37 AN 08/05/19 13:35 Wound Center Nurse 2 [Procedure/Treatment] -Time 13:36 -Correct Patient Yes -Correct Side, Site, Position Yes -Correct Procedure Yes -Procedure Performed Yes -Type of Procedure Debridement -Clinical Debridement Subcutaneous -Post Debridement Size (cm) - Length 1.3 -Post Debridement Size (cm) - Width 1.3 -Post Debridement Size (cm) - Depth 0.5 -Total Square Cm 1.69 -Wound/Ulcer Outcome Not Healed -Ulcer Cleansing Rinsed/ Irrigated with Saline -Foul Odor after Cleansing No -Bioengineered Tissue No -Bleeding Controlled with Pressure -Offloading Yes -Treatment Response Procedure Tolerated Well [See Physician Procedure note for Specifics] Pain Scale: 0-10 Numeric [Pain] -Is Patient Pain Free? Yes Neurological: Neuro grossly intact Psych/Mental Status: Normal Affect, Appropriate, Alert and oriented to time, place, person, mood and affect Debridement Note Post-Debridement Measurements/Treatment - Nurse 2 - General Ulcer CM Notes Start: 08/05/19 13:04 Freq: Status: Active Protocol: Activity Type Activity Date Activity User E-Sign Co-Sign Detail Recorded Client Recorded Date Recorded By Document 08/05/19 13:35 AN [id number] 08/05/19 13:37 AN 08/05/19 13:35 Wound Center Nurse 2 #3 Coccyx -Time 13:36 -Correct Patient Yes -Correct Side, Site, Position Yes -Correct Procedure Yes -Procedure Performed Yes -Type of Procedure Debridement -Clinical Debridement Subcutaneous -Post Debridement Size (cm) - Length 1.3 -Post Debridement Size (cm) - Width 1.3 -Post Debridement Size (cm) - Depth 0.5 -Total Square Cm 1.69 -Wound/Ulcer Outcome Not Healed -Ulcer Cleansing Rinsed/ Irrigated with Saline -Foul Odor after Cleansing No -Bioengineered Tissue No -Bleeding Controlled with Pressure -Offloading Yes -Treatment Response Procedure Tolerated Well Pain Scale: 0-10 Numeric Is Patient Pain Free? Yes Wound debrided: Stage 3 coccyx pressure ulcer Type of Debridement: Excisional debridement Anesthesia Used: 5% Lidocaine Gel Depth: in the subcutaneous layer Percentage of wound debrided: 100 Instrument Used: 7mm curette Tissue Removed: slough and devitalized tissue Severity: Fat Layer Exposed Amount of bleeding with debridement: Mild Bleeding Controlled with: Pressure Patient tolerated procedure well Assessment/Plan Active Problems Stage III pressure ulcer (Chronic) coccyx Amputation of left lower extremity (Chronic) Immobility (Chronic) Malnutrition (Acute) Assessment: See above diagnoses Plan: The patient was seen and examined at the wound center today. A subcutaneous debridement was performed today. The patient tolerated the procedure well. The patients wound care will consist of: moistened hydrofera and optifoam daily. Patient and daughter agree to continue on a palliative wound plan given the multiple wound care failures and patients multiple comorbidities that interfere with wound healing. Discussed this with patient and daughter. Pt to continue with offloading interventions such as turning q2h in bed at night and offloading when sitting, however she is noncompliant with this. previous cultures collected were negative. Baseline bloodwork reviewed and prealbumin was very low, encouraged the use of high protien drinks and to drink at minimum 3-4 ensure drinks per day, however patient is noncompliant with this. Patient educated on the importance of diet on wound healing and instructed to increase protein and vitamin C intake. Patient verbalized understanding. Due to patient's limited mobility and stage III pressure ulcer, she would benefit from the use of a sliding board and the use of a gel cushion for her wheelchair. Orders for the supplies were given. Patient will follow up at wound healing center in 4 weeks or sooner if needed. This note was generated with [employer] dictation software. It may contain incorrect words, spelling, and punctuation that were not noted in checking the note before signing. Code Visit 111xxx-113xx: 37911 Angie subq tissue 20 sq cm/<
== END 2019-08-16 23:59 ==
LOC: WC 09:58
PROVIDERS: Family Provider Family Medicine; PCP Family Medicine; Visit Provider Nurse Practitioner Family
DX: L89.153 Pressure ulcer of sacral region, stage 3 (principal); Z86.718 Personal history of other venous thrombosis and embolism; Z86.711 Personal history of pulmonary embolism; M19.90 Unspecified osteoarthritis, unspecified site; M06.9 Rheumatoid arthritis, unspecified; Z89.612 Acquired absence of left leg above knee
CPT/HCPCS: 11042

== ENCOUNTER 2019-09-02 10:58 | Outpatient (RCR) | payer MEDICARE, OTHER, SELFPAY ==
[2019-08-17 00:33] VITALS: BP 102/41; PULSE 69; RESP 16; TEMP 36.6
[2019-09-02 13:14] VITALS: BP 108/53; PULSE 74; RESP 16; TEMP 35.4; BMI 17.7
--- NOTE | 2019-09-02 13:30 | PCM.WC.PN ---
(1) Stage III pressure ulcer Status: Chronic Current Visit: Yes Qualifiers: Code(s): L89.93 - Pressure ulcer of unspecified site, stage 3 Comment: coccyx (2) Malnutrition Status: Acute Current Visit: No Code(s): E46 - Unspecified protein-calorie malnutrition (3) Hypertension Status: Chronic Current Visit: No Code(s): I10 - Essential (primary) hypertension (4) Immobility Status: Chronic Current Visit: No Code(s): Z74.09 - Other reduced mobility Type of Wound Date of Service: 09/02/19 Chief Complaint: Stage III pressure 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 She has a past medical history of left kwqbq-dbl-abny amputee, DVT, PE with long-term Coumadin anticoagulation, anemia, RA and OA. Patient and family believe the wound started around November 2017 due to pressure and constantly sitting in her chair. Her wound has been noted on multiple hospital admissions in the past. Cultures were previously done in January 2018 and demonstrated staph, Klebsiella, and Proteus and patient completed Levaquin and ampicillin therapy. The patient has also been in and out of the [facility]. She is currently residing at home with her . Due to her amputation, her mobility is severely limited and she spends most of her time sitting in either her wheelchair or her reclining chair at home. She does have a hospital bed that she sleeps in at night. She does state that she has an excoriated buttocks as well due to having to scoot from her wheelchair to reclining chair and wheelchair to bed. She has been using Paola for dressing the wound and is on a palliative treatment plan. Denies any heavy drainage, though does state that the ulcer bleeds at times. Denies any systemic signs of infection at this time. The patient otherwise denies any fever, chills, nausea, vomiting, shortness of breath, chest pain or pressure, palpitations, orthopnea, lower extremity edema, syncope or presyncopal episodes. Progress of Wound: Size stable, moderate amount of slough present, no signs of infection, patient doing well with palliative wound care, still has difficulty remaining compliant with offloading. - Physical Exam Vital Signs Temp Pulse Resp BP 95.7 F L 74 16 108/53 L 09/02/19 13:14 09/02/19 13:14 09/02/19 13:14 09/02/19 13:14 General: Alert, Oriented x3, Cooperative, No apparent distress HEENT: Atraumatic Neck: Supple Lungs: Clear to auscultation Cardiovascular: Regular rate Abdomen: Soft, Non Tender Skin: Ulcer/ Wound - Stage III pressure ulcer to sacral region with adherent slough to wound bed, no periwound bed erythema, no redness, streaking, purulent odor or fluctuance noted at this time. Wound Measurements and Assessment WC - Nurse 1 - General Ulcer Measurement Start: 09/02/19 13:13 Freq: Status: Active Protocol: Activity Type Activity Date Activity User E-Sign Co-Sign Detail Recorded Client Recorded Date Recorded By Document 09/02/19 13:14 [facility] [id number] 09/02/19 13:15 BM 09/02/19 13:14 Wound Center Nurse 1 [Ulcer Assessment] #3 Coccyx -Combined with other wound No -Current Size (cm) - Length 1.6 -Current Size (cm) - Width 1 -Current Size (cm) - Depth 0.5 -Total Square Cm 1.6 -Photo Taken No -Epithelialization None Present -Tunneling No -Undermining/Tunneling No -Circular Undermining No -Exudate Amt Small -Exudate Type Serous -Wound Margin Thickened & Rolled Under -Granulation Amt Large (67-100%) -Granulation Quality Red -Slough/Fibrin No -Necrosis Amt None Present (0 %) -Texture (Alexus-wound Skin Appearance) Assessed, Scarring -Moisture (Alexus-wound Skin Appearance Assessed ) -Color (Alexus-wound Skin Appearance) Assessed, Hemosiderin Staining -Temperature (Alexus-wound Skin No Abnormality Appearance) (Pt Warm) -Tenderness on Palpation (Alexus-wound No Skin Appearance) -Ulcer Cleansing Rinsed/ Irrigated with Saline -Foul Odor after Cleansing No -Anesthetic Used 5% Lidocaine Gel WC - Nurse 2 - General Ulcer CM Notes Start: 09/02/19 13:13 Freq: Status: Active Protocol: Activity Type Activity Date Activity User E-Sign Co-Sign Detail Recorded Client Recorded Date Recorded By Document 09/02/19 13:23 AN [id number] 09/02/19 13:25 AN 09/02/19 13:23 Wound Center Nurse 2 [Procedure/Treatment] -Time 13:23 -Correct Patient Yes -Correct Side, Site, Position Yes -Correct Procedure Yes -Procedure Performed Yes -Type of Procedure Debridement -Clinical Debridement Subcutaneous -Post Debridement Size (cm) - Length 1.4 -Post Debridement Size (cm) - Width 1.4 -Post Debridement Size (cm) - Depth 0.5 -Total Square Cm 1.96 -Wound/Ulcer Outcome Not Healed -Ulcer Cleansing Rinsed/ Irrigated with Saline -Foul Odor after Cleansing No -Bioengineered Tissue No -Bleeding Controlled with Pressure -Offloading Yes -Treatment Response Procedure Tolerated Well [See Physician Procedure note for Specifics] Pain Scale: 0-10 Numeric [Pain] -Is Patient Pain Free? Yes Neurological: - - Limited mobility due to lower extremity amputation Psych/Mental Status: Normal Affect, Appropriate, Alert and oriented to time, place, person, mood and affect Debridement Note Post-Debridement Measurements/Treatment WC - Nurse 2 - General Ulcer CM Notes Start: 09/02/19 13:13 Freq: Status: Active Protocol: Activity Type Activity Date Activity User E-Sign Co-Sign Detail Recorded Client Recorded Date Recorded By Document 09/02/19 13:23 AN [id number] 09/02/19 13:25 AN 09/02/19 13:23 Wound Center Nurse 2 #3 Coccyx -Time 13:23 -Correct Patient Yes -Correct Side, Site, Position Yes -Correct Procedure Yes -Procedure Performed Yes -Type of Procedure Debridement -Clinical Debridement Subcutaneous -Post Debridement Size (cm) - Length 1.4 -Post Debridement Size (cm) - Width 1.4 -Post Debridement Size (cm) - Depth 0.5 -Total Square Cm 1.96 -Wound/Ulcer Outcome Not Healed -Ulcer Cleansing Rinsed/ Irrigated with Saline -Foul Odor after Cleansing No -Bioengineered Tissue No -Bleeding Controlled with Pressure -Offloading Yes -Treatment Response Procedure Tolerated Well Pain Scale: 0-10 Numeric Is Patient Pain Free? Yes Wound debrided: Stage III pressure ulcer of the sacrum Laterality: Not Applicable Type of Debridement: Excisional debridement Anesthesia Used: 5% Lidocaine Gel Depth: in the subcutaneous layer Percentage of wound debrided: 100 Instrument Used: 3mm curette Tissue Removed: Devitalized tissue Severity: Fat Layer Exposed Amount of bleeding with debridement: Mild Bleeding Controlled with: Pressure Patient tolerated procedure well Assessment/Plan Active Problems Stage III pressure ulcer (Chronic) coccyx Assessment: See above diagnoses Plan: The patient was seen and examined at the wound center today. A subcutaneous debridement was performed today. The patient tolerated the procedure well. The patients wound care will consist of: Paola and optifoam/ABD daily. Patient and daughter agree to continue on a palliative wound plan given the multiple wound care failures and patients multiple comorbidities that interfere with wound healing. Discussed this with patient and daughter. Pt to continue with offloading interventions such as turning q2h in bed at night and offloading when sitting, however she is noncompliant with this. previous cultures collected were negative. Baseline bloodwork reviewed and prealbumin was very low, encouraged the use of high protien drinks and to drink at minimum 3-4 ensure drinks per day, however patient is noncompliant with this. Patient educated on the importance of diet on wound healing and instructed to increase protein and vitamin C intake. Patient verbalized understanding. Due to patient's limited mobility and stage III pressure ulcer, she would benefit from the use of a sliding board and the use of a gel cushion for her wheelchair. Orders for the supplies were given. Patient will follow up at wound healing center in 4 weeks or sooner if needed. This note was generated with [employer] dictation software. It may contain incorrect words, spelling, and punctuation that were not noted in checking the note before signing. Multi Select Codes - Integumentary Integumentary CPT Codes: 19756 Angie subq tissue 20 sq cm/<
== END 2019-09-16 23:59 ==
LOC: WC 10:58
PROVIDERS: Family Provider Family Medicine; PCP Family Medicine; Visit Provider Nurse Practitioner Family
DX: L89.153 Pressure ulcer of sacral region, stage 3 (principal); Z86.718 Personal history of other venous thrombosis and embolism; Z79.01 Long term (current) use of anticoagulants; M19.90 Unspecified osteoarthritis, unspecified site; M06.9 Rheumatoid arthritis, unspecified; Z86.711 Personal history of pulmonary embolism; Z89.612 Acquired absence of left leg above knee
CPT/HCPCS: 11042

== ENCOUNTER 2019-09-30 09:40 | Outpatient (RCR) | payer MEDICARE, OTHER, SELFPAY ==
[2019-09-17 00:35] VITALS: BP 108/53; PULSE 74; RESP 16; TEMP 35.4
[2019-09-30 13:27] VITALS: BP 123/58; PULSE 78; RESP 18; TEMP 36.3; BMI 17.7
--- NOTE | 2019-09-30 18:50 | PN.PCM_ITS ---
(1) Stage III pressure ulcer Status: Chronic Current Visit: Yes Qualifiers: Code(s): L89.93 - Pressure ulcer of unspecified site, stage 3 Comment: coccyx (2) Amputation of left lower extremity Status: Chronic Current Visit: No Qualifiers: Code(s): S88.912A - Complete traumatic amputation of left lower leg, level unspecified, initial encounter (3) Hyperlipidemia Status: Chronic Current Visit: No Code(s): E78.5 - Hyperlipidemia, unspecified (4) Hypertension Status: Chronic Current Visit: No Code(s): I10 - Essential (primary) hypertension (5) Immobility Status: Chronic Current Visit: No Code(s): Z74.09 - Other reduced mobility Type of Wound Date of Service: 09/30/19 Chief Complaint: Stage III pressure 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 She has a past medical history of left jldgu-ifr-sdfb amputee, DVT, PE with long-term Coumadin anticoagulation, anemia, RA and OA. Patient and family believe the wound started around November 2017 due to pressure and constantly sitting in her chair. Her wound has been noted on multiple hospital admissions in the past. Cultures were previously done in January 2018 and demonstrated staph, Klebsiella, and Proteus and patient completed Levaquin and ampicillin therapy. The patient has also been in and out of the custodial. She is currently residing at home with her . Due to her amputation, her mobility is severely limited and she spends most of her time sitting in either her wheelchair or her reclining chair at home. She does have a hospital bed that she sleeps in at night. She does state that she has an excoriated buttocks as well due to having to scoot from her wheelchair to reclining chair and wheelchair to bed. She has been using Paola for dressing the wound and is on a palliative treatment plan. Denies any heavy drainage, though does state that the ulcer bleeds at times. Denies any systemic signs of infection at this time. The patient otherwise denies any fever, chills, nausea, vomiting, shortness of breath, chest pain or pressure, palpitations, orthopnea, lower extremity edema, syncope or presyncopal episodes. Progress of Wound: Size stable, moderate amount of slough present, no signs of infection, patient doing well with palliative wound care, still has difficulty remaining compliant with offloading. - Physical Exam Vital Signs Temp Pulse Resp BP 97.3 F L 78 18 123/58 H 09/30/19 13:27 09/30/19 13:27 09/30/19 13:27 09/30/19 13:27 General: Alert, Oriented x3, Cooperative, No apparent distress HEENT: Atraumatic Oral: Moist Mucosa Lungs: Clear to auscultation Cardiovascular: Regular rate Abdomen: Soft, Non Tender Extremities: - - Left lower extremity amputation Skin: Ulcer/ Wound - Stage III pressure injury to the sacral region with adherent slough, no signs of obvious infection at this time Wound Measurements and Assessment WC - Nurse 1 - General Ulcer Measurement Start: 09/30/19 13:27 Freq: Status: Active Protocol: Activity Type Activity Date Activity User E-Sign Co-Sign Detail Recorded Client Recorded Date Recorded By Document 09/30/19 13:27 DL [id number] 09/30/19 13:39 DL 09/30/19 13:27 Wound Center Nurse 1 [Ulcer Assessment] #3 Coccyx -Current Size (cm) - Length 1.6 -Current Size (cm) - Width 1 -Current Size (cm) - Depth 0.4 -Total Square Cm 1.6 -Exudate Amt Small -Exudate Type Serosanguineous -Wound Margin Distinct, Outline Attached -Granulation Amt Small (1-33%) -Granulation Quality [place] -Necrosis Amt Small (1-33%) -Necrotic Tissue Type Adherent Slough -Structure Exposed N/A -Texture (Alexus-wound Skin Appearance) Scarring -Moisture (Alexus-wound Skin Appearance Maceration ) -Color (Alexus-wound Skin Appearance) No Abnormality -Temperature (Alexus-wound Skin No Abnormality Appearance) (Pt Warm) -Tenderness on Palpation (Alexus-wound No Skin Appearance) -Ulcer Cleansing Wound Cleanser -Foul Odor after Cleansing No -Anesthetic Used 4% Lidocaine Solution WC - Nurse 2 - General Ulcer CM Notes Start: 09/30/19 13:27 Freq: Status: Active Protocol: Activity Type Activity Date Activity User E-Sign Co-Sign Detail Recorded Client Recorded Date Recorded By Document 09/30/19 13:56 MW [id number] 09/30/19 13:57 MW 09/30/19 13:56 Wound Center Nurse 2 [Procedure/Treatment] -Time 13:56 -Correct Patient Yes -Correct Side, Site, Position Yes -Correct Procedure Yes -Procedure Performed Yes -Type of Procedure Debridement -Clinical Debridement Subcutaneous -Post Debridement Size (cm) - Length 1.7 -Post Debridement Size (cm) - Width 1.5 -Post Debridement Size (cm) - Depth 0.5 -Total Square Cm 2.55 -Wound/Ulcer Outcome Not Healed -Ulcer Cleansing Rinsed/ Irrigated with Saline -Foul Odor after Cleansing No -Bioengineered Tissue No -Bleeding Controlled with Pressure -Offloading No -Treatment Response Procedure Tolerated Well [See Physician Procedure note for Specifics] Pain Scale: 0-10 Numeric [Pain] -Is Patient Pain Free? Yes Neurological: Neuro grossly intact Psych/Mental Status: Normal Affect, Appropriate, Alert and oriented to time, place, person, mood and affect Debridement Note Post-Debridement Measurements/Treatment WC - Nurse 2 - General Ulcer CM Notes Start: 09/30/19 13:27 Freq: Status: Active Protocol: Activity Type Activity Date Activity User E-Sign Co-Sign Detail Recorded Client Recorded Date Recorded By Document 09/30/19 13:56 MW [id number] 09/30/19 13:57 MW 09/30/19 13:56 Wound Center Nurse 2 #3 Coccyx -Time 13:56 -Correct Patient Yes -Correct Side, Site, Position Yes -Correct Procedure Yes -Procedure Performed Yes -Type of Procedure Debridement -Clinical Debridement Subcutaneous -Post Debridement Size (cm) - Length 1.7 -Post Debridement Size (cm) - Width 1.5 -Post Debridement Size (cm) - Depth 0.5 -Total Square Cm 2.55 -Wound/Ulcer Outcome Not Healed -Ulcer Cleansing Rinsed/ Irrigated with Saline -Foul Odor after Cleansing No -Bioengineered Tissue No -Bleeding Controlled with Pressure -Offloading No -Treatment Response Procedure Tolerated Well Pain Scale: 0-10 Numeric Is Patient Pain Free? Yes Wound debrided: Stage III pressure injury to sacrum Type of Debridement: Excisional debridement Anesthesia Used: 5% Lidocaine Gel Depth: in the subcutaneous layer Percentage of wound debrided: 100 Instrument Used: 5mm curette Tissue Removed: Slough and devitalized tissue Severity: Fat Layer Exposed Amount of bleeding with debridement: Mild Bleeding Controlled with: Pressure Patient tolerated procedure well Assessment/Plan Active Problems Stage III pressure ulcer (Chronic) coccyx Assessment: See above diagnoses Plan: The patient was seen and examined at the wound center today. A subcutan eous debridement was performed today. The patient tolerated the procedure well. The patients wound care will consist of: Paola and optifoam/ABD daily. Patient and daughter agree to continue on a palliative wound plan given the multiple wound care failures and patients multiple comorbidities that interfere with wound healing. Discussed this with patient and daughter. Pt to continue with offloading interventions such as turning q2h in bed at night and offloading when sitting, however she is noncompliant with this. previous cultures collected were negative. Baseline bloodwork reviewed and prealbumin was very low, encouraged the use of high protien drinks and to drink at minimum 3-4 ensure drinks per day, however patient is noncompliant with this. Patient educated on the importance of diet on wound healing and instructed to increase protein and vitamin C intake. Patient verbalized understanding. Due to patient's limited mobility and stage III pressure ulcer, she would benefit from the use of a sliding board and the use of a gel cushion for her wheelchair. Orders for the supplies were given. Patient will follow up at wound healing center in 4 weeks or sooner if needed. This note was generated with [employer] dictation software. It may contain incorrect words, spelling, and punctuation that were not noted in checking the note before signing. Code Visit 111xxx-113xx: [id number] Angie subq tissue 20 sq cm/<
== END 2019-10-16 23:59 ==
LOC: WC 09:40
PROVIDERS: Family Provider Family Medicine; PCP Family Medicine; Visit Provider Nurse Practitioner Family
DX: L89.153 Pressure ulcer of sacral region, stage 3 (principal); E78.5 Hyperlipidemia, unspecified; I10 Essential (primary) hypertension; Z89.612 Acquired absence of left leg above knee; Z86.711 Personal history of pulmonary embolism; Z86.718 Personal history of other venous thrombosis and embolism; M19.90 Unspecified osteoarthritis, unspecified site; M06.9 Rheumatoid arthritis, unspecified; Z79.01 Long term (current) use of anticoagulants
CPT/HCPCS: 11042

== ENCOUNTER 2019-10-28 12:35 | Outpatient (RCR) | payer MEDICARE, OTHER, SELFPAY ==
[2019-10-17 00:28] VITALS: BP 123/58; PULSE 78; RESP 18; TEMP 36.3
[2019-10-28 13:15] VITALS: BP 107/62; PULSE 77; RESP 18; TEMP 36; BMI 17.7
--- NOTE | 2019-10-28 20:02 | PCM.WC.PN ---
(1) Stage III pressure ulcer Status: Chronic Qualifiers: Code(s): L89.93 - Pressure ulcer of unspecified site, stage 3 Comment: coccyx (2) Malnutrition Status: Acute Code(s): E46 - Unspecified protein-calorie malnutrition (3) Amputation of left lower extremity Status: Chronic Qualifiers: Code(s): S88.912A - Complete traumatic amputation of left lower leg, level unspecified, initial encounter (4) Hyperlipidemia Status: Chronic Code(s): E78.5 - Hyperlipidemia, unspecified (5) Hypertension Status: Chronic Code(s): I10 - Essential (primary) hypertension (6) Hypothyroidism Status: Chronic Code(s): E03.9 - Hypothyroidism, unspecified (7) Immobility Status: Chronic Code(s): Z74.09 - Other reduced mobility (8) Osteoarthritis of hips, bilateral Status: Chronic Code(s): M16.0 - Bilateral primary osteoarthritis of hip (9) Osteoporosis Status: Chronic Code(s): M81.0 - Age-related osteoporosis without current pathological fracture Type of Wound Date of Service: 10/28/19 Chief Complaint: Stage III pressure 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 She has a past medical history of left elxok-fod-vqae amputee, DVT, PE with long-term Coumadin anticoagulation, anemia, RA and OA. Patient and family believe the wound started around November 2017 due to pressure and constantly sitting in her chair. Her wound has been noted on multiple hospital admissions in the past. Cultures were previously done in January 2018 and demonstrated staph, Klebsiella, and Proteus and patient completed Levaquin and ampicillin therapy. The patient has also been in and out of the care home. She is currently residing at home with her . Due to her amputation, her mobility is severely limited and she spends most of her time sitting in either her wheelchair or her reclining chair at home. She does have a hospital bed that she sleeps in at night. She does state that she has an excoriated buttocks as well due to having to scoot from her wheelchair to reclining chair and wheelchair to bed. She has been using Paola for dressing the wound and is on a palliative treatment plan. Denies any heavy drainage, though does state that the ulcer bleeds at times. Denies any systemic signs of infection at this time. The patient otherwise denies any fever, chills, nausea, vomiting, shortness of breath, chest pain or pressure, palpitations, orthopnea, lower extremity edema, syncope or presyncopal episodes. Progress of Wound: Size stable, less slough present, no signs of infection, patient doing well with palliative wound care, still has difficulty remaining compliant with offloading. - Physical Exam Vital Signs Temp Pulse Resp BP 96.8 F L 77 18 107/62 10/28/19 13:15 10/28/19 13:15 10/28/19 13:15 10/28/19 13:15 General: Alert, Oriented x3, Cooperative, No apparent distress HEENT: Atraumatic Oral: Moist Mucosa Lungs: Clear to auscultation Cardiovascular: Regular rate Abdomen: Soft, Non Tender Extremities: No clubbing, No cyanosis, - - Left lower ext amputation Skin: Ulcer/ Wound - Ulceration to coccyx with small amount of adherent slough, no signs of obvious infection at this time. Neurological: Neuro grossly intact Psych/Mental Status: Normal Affect, Appropriate, Alert and oriented to time, place, person, mood and affect Debridement Note Post-Debridement Measurements/Treatment WC - Nurse 2 - General Ulcer CM Notes Start: 10/28/19 13:15 Freq: Status: Active Protocol: Activity Type Activity Date Activity User E-Sign Co-Sign Detail Recorded Client Recorded Date Recorded By Document 10/28/19 13:29 NATALIA [id number] 10/28/19 13:30 NATALIA 10/28/19 13:29 Wound Center Nurse 2 #3 Coccyx -Time 13:29 -Correct Patient Yes -Correct Side, Site, Position Yes -Correct Procedure Yes -Procedure Performed Yes -Type of Procedure Debridement -Clinical Debridement Subcutaneous -Post Debridement Size (cm) - Length 1.7 -Post Debridement Size (cm) - Width 1.5 -Post Debridement Size (cm) - Depth 0.5 -Total Square Cm 2.55 -Wound/Ulcer Outcome Not Healed -Ulcer Cleansing Rinsed/ Irrigated with Saline -Foul Odor after Cleansing No -Bioengineered Tissue No -Bleeding Controlled with Pressure -Offloading No -Treatment Response Procedure Tolerated Well Pain Scale: 0-10 Numeric Is Patient Pain Free? Yes Wound debrided: Stage III pressure injury to coccyx Type of Debridement: Excisional debridement Anesthesia Used: 5% Lidocaine Gel Depth: in the subcutaneous layer Percentage of wound debrided: 100 Instrument Used: 7mm curette Tissue Removed: Slough and devitalized tissue Severity: Fat Layer Exposed Amount of bleeding with debridement: Mild Bleeding Controlled with: Pressure Patient tolerated procedure well Assessment/Plan Assessment: See above diagnoses Plan: The patient was seen and examined at the wound center today. A subcutaneous debridement was performed today. The patient tolerated the procedure well. The patients wound care will consist of: Paola and optifoam/ABD daily. Patient and daughter agree to continue on a palliative wound plan given the multiple wound care failures and patients multiple comorbidities that interfere with wound healing. Discussed this with patient and daughter. Pt to continue with offloading interventions such as turning q2h in bed at night and offloading when sitting, however she is noncompliant with this. previous cultures collected were negative. Baseline bloodwork reviewed and prealbumin was very low, encouraged the use of high protien drinks and to drink at minimum 3-4 ensure drinks per day, however patient is noncompliant with this. Patient educated on the importance of diet on wound healing and instructed to increase protein and vitamin C intake. Patient verbalized understanding. Due to patient's limited mobility and stage III pressure ulcer, she would benefit from the use of a sliding board and the use of a gel cushion for her wheelchair. Orders for the supplies were given. Patient will follow up at wound healing center in 4 weeks or sooner if needed. This note was generated with [employer] dictation software. It may contain incorrect words, spelling, and punctuation that were not noted in checking the note before signing. Code Visit 111xxx-113xx: 29795 Angie subq tissue 20 sq cm/<
== END 2019-11-16 23:59 ==
LOC: WC 12:35
PROVIDERS: Family Provider Family Medicine; PCP Family Medicine; Visit Provider Nurse Practitioner Family
DX: L89.153 Pressure ulcer of sacral region, stage 3 (principal); E78.5 Hyperlipidemia, unspecified; I10 Essential (primary) hypertension; M16.0 Bilateral primary osteoarthritis of hip; Z86.718 Personal history of other venous thrombosis and embolism; Z86.711 Personal history of pulmonary embolism; M06.9 Rheumatoid arthritis, unspecified; Z89.612 Acquired absence of left leg above knee
CPT/HCPCS: 11042

== ENCOUNTER 2019-11-25 13:12 | Outpatient (RCR) | payer MEDICARE, OTHER, SELFPAY ==
[2019-11-17 00:25] VITALS: BP 107/62; PULSE 77; RESP 18; TEMP 36
[2019-11-25 13:03] VITALS: BP 120/48; PULSE 72; RESP 18; TEMP 37.1; BMI 17.7
--- NOTE | 2019-11-28 11:12 | PCM.WC.PN ---
(1) Stage III pressure ulcer Status: Chronic Current Visit: Yes Qualifiers: Code(s): L89.93 - Pressure ulcer of unspecified site, stage 3 Comment: coccyx (2) Malnutrition Status: Acute Current Visit: No Code(s): E46 - Unspecified protein-calorie malnutrition (3) Amputation of left lower extremity Status: Chronic Current Visit: No Qualifiers: Code(s): S88.912A - Complete traumatic amputation of left lower leg, level unspecified, initial encounter (4) Hyperlipidemia Status: Chronic Current Visit: No Code(s): E78.5 - Hyperlipidemia, unspecified (5) Hypertension Status: Chronic Current Visit: No Code(s): I10 - Essential (primary) hypertension (6) Hypothyroidism Status: Chronic Current Visit: No Code(s): E03.9 - Hypothyroidism, unspecified (7) Immobility Status: Chronic Current Visit: No Code(s): Z74.09 - Other reduced mobility (8) Osteoarthritis of hips, bilateral Status: Chronic Current Visit: No Code(s): M16.0 - Bilateral primary osteoarthritis of hip (9) Osteoporosis Status: Chronic Current Visit: No Code(s): M81.0 - Age-related osteoporosis without current pathological fracture Type of Wound Date of Service: 11/25/19 Chief Complaint: Stage III pressure 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 She has a past medical history of left [id number] amputee, DVT, PE with long-term Coumadin anticoagulation, anemia, RA and OA. Patient and family believe the wound started around November 2017 due to pressure and constantly sitting in her chair. Her wound has been noted on multiple hospital admissions in the past. Cultures were previously done in January 2018 and demonstrated staph, Klebsiella, and Proteus and patient completed Levaquin and ampicillin therapy. The patient has also been in and out of the assisted. She is currently residing at home with her . Due to her amputation, her mobility is severely limited and she spends most of her time sitting in either her wheelchair or her reclining chair at home. She does have a hospital bed that she sleeps in at night. She does state that she has an excoriated buttocks as well due to having to scoot from her wheelchair to reclining chair and wheelchair to bed. She has been using Paola for dressing the wound and is on a palliative treatment plan. Denies any heavy drainage, though does state that the ulcer bleeds at times. Denies any systemic signs of infection at this time. The patient otherwise denies any fever, chills, nausea, vomiting, shortness of breath, chest pain or pressure, palpitations, orthopnea, lower extremity edema, syncope or presyncopal episodes. Progress of Wound: Size stable, no signs of infection, patient doing well with palliative wound care, still has difficulty remaining compliant with offloading. Still declining referral to surgery for evaluation. - Physical Exam Vital Signs Temp Pulse Resp BP 98.8 F 72 18 120/48 L 11/25/19 13:03 11/25/19 13:03 11/25/19 13:03 11/25/19 13:03 General: Alert, Oriented x3, Cooperative, No apparent distress HEENT: Atraumatic Oral: Moist Mucosa Lungs: Clear to auscultation Cardiovascular: Regular rate Abdomen: Soft, Non Tender Extremities: - - Left lower extremity amputation Skin: Ulcer/ Wound - Ulceration to coccyx with adherent slough, no signs of obvious infection at this time Wound Measurements and Assessment WC - Nurse 1 - General Ulcer Measurement Start: 11/25/19 13:03 Freq: Status: Active Protocol: Activity Type Activity Date Activity User E-Sign Co-Sign Detail Recorded Client Recorded Date Recorded By Document 11/25/19 13:03 RACHELE [id number] 11/25/19 13:06 RB 11/25/19 13:03 Wound Center Nurse 1 [Ulcer Assessment] #3 Coccyx -Combined with other wound No -Current Size (cm) - Length 1.4 -Current Size (cm) - Width 1 -Current Size (cm) - Depth 0.5 -Total Square Cm 1.4 -Tunneling No -Undermining/Tunneling No -Circular Undermining No -Exudate Amt Small -Exudate Type Serosanguineous -Wound Margin Thickened & Rolled Under -Granulation Amt Medium (34-66%) -Granulation Quality [place] -Slough/Fibrin Yes -Necrosis Amt Small (1-33%) -Necrotic Tissue Type Adherent Slough -Structure Exposed N/A -Texture (Alexus-wound Skin Appearance) Assessed -Moisture (Alexus-wound Skin Appearance Assessed, ) Maceration -Color (Alexus-wound Skin Appearance) Assessed -Temperature (Alexus-wound Skin No Abnormality Appearance) (Pt Warm) -Tenderness on Palpation (Alexus-wound No Skin Appearance) -Ulcer Cleansing Wound Cleanser -Foul Odor after Cleansing No -Anesthetic Used 4% Lidocaine Solution WC - Nurse 2 - General Ulcer CM Notes Start: 11/25/19 13:03 Freq: Status: Active Protocol: Activity Type Activity Date Activity User E-Sign Co-Sign Detail Recorded Client Recorded Date Recorded By Document 11/25/19 13:22 MW [id number] 11/25/19 13:23 MW 11/25/19 13:22 Wound Center Nurse 2 [Procedure/Treatment] -Time 13:22 -Correct Patient Yes -Correct Side, Site, Position Yes -Correct Procedure Yes -Procedure Performed Yes -Type of Procedure Debridement -Clinical Debridement Subcutaneous -Post Debridement Size (cm) - Length 1.3 -Post Debridement Size (cm) - Width 1.6 -Post Debridement Size (cm) - Depth 0.6 -Total Square Cm 2.08 -Wound/Ulcer Outcome Not Healed -Ulcer Cleansing Rinsed/ Irrigated with Saline -Foul Odor after Cleansing No -Bioengineered Tissue No -Bleeding Controlled with Pressure -Offloading No -Treatment Response Procedure Tolerated Well [See Physician Procedure note for Specifics] Pain Scale: 0-10 Numeric [Pain] -Is Patient Pain Free? Yes Neurological: Neuro grossly intact Psych/Mental Status: Normal Affect, Appropriate Debridement Note Post-Debridement Measurements/Treatment WC - Nurse 2 - General Ulcer CM Notes Start: 11/25/19 13:03 Freq: Status: Active Protocol: Activity Type Activity Date Activity User E-Sign Co-Sign Detail Recorded Client Recorded Date Recorded By Document 11/25/19 13:22 MW [id number] 11/25/19 13:23 MW 11/25/19 13:22 Wound Center Nurse 2 #3 Coccyx -Time 13:22 -Correct Patient Yes -Correct Side, Site, Position Yes -Correct Procedure Yes -Procedure Performed Yes -Type of Procedure Debridement -Clinical Debridement Subcutaneous -Post Debridement Size (cm) - Length 1.3 -Post Debridement Size (cm) - Width 1.6 -Post Debridement Size (cm) - Depth 0.6 -Total Square Cm 2.08 -Wound/Ulcer Outcome Not Healed -Ulcer Cleansing Rinsed/ Irrigated with Saline -Foul Odor after Cleansing No -Bioengineered Tissue No -Bleeding Controlled with Pressure -Offloading No -Treatment Response Procedure Tolerated Well Pain Scale: 0-10 Numeric Is Patient Pain Free? Yes Wound debrided: Stage III pressure ulcer of coccyx Type of Debridement: Excisional debridement Anesthesia Used: 4% Lidocaine Solution Depth: in the subcutaneous layer Percentage of wound debrided: 100 Instrument Used: 5mm curette Tissue Removed: Slough and devitalized tissue Severity: Fat Layer Exposed Amount of bleeding with debridement: Mild Bleeding Controlled with: Pressure Patient tolerated procedure well Assessment/Plan Active Problems Stage III pressure ulcer (Chronic) coccyx Assessment: See above diagnoses Plan: The patient was seen and examined at the wound center today. A subcutaneous debridement was performed today. The patient tolerated the procedure well. The patients wound care will consist of: Paola and optifoam/ABD daily. Patient and daughter agree to continue on a palliative wound plan given the multiple wound care failures and patients multiple comorbidities that interfere with wound healing. Discussed this with patient and daughter. Pt to continue with offloading interventions such as turning q2h in bed at night and offloading when sitting, however she is noncompliant with this. previous cultures collected were negative. Baseline bloodwork reviewed and prealbumin was very low, encouraged the use of high protien drinks and to drink at minimum 3-4 ensure drinks per day, however patient is noncompliant with this. Patient educated on the importance of diet on wound healing and instructed to increase protein and vitamin C intake. Patient verbalized understanding. Due to patient's limited mobility and stage III pressure ulcer, she would benefit from the use of a sliding board and the use of a gel cushion for her wheelchair. Orders for the supplies were given. Patient will follow up at wound healing center in 4 weeks or sooner if needed. This note was generated with [employer] dictation software. It may contain incorrect words, spelling, and punctuation that were not noted in checking the note before signing. Code Visit 111xxx-113xx: [id number] Angie subq tissue 20 sq cm/<
== END 2019-12-17 23:59 ==
LOC: WC 13:12
PROVIDERS: Family Provider Family Medicine; PCP Family Medicine; Visit Provider Nurse Practitioner Family
DX: L89.153 Pressure ulcer of sacral region, stage 3 (principal); I10 Essential (primary) hypertension; M06.9 Rheumatoid arthritis, unspecified; E78.5 Hyperlipidemia, unspecified; E03.9 Hypothyroidism, unspecified; D64.9 Anemia, unspecified; M16.0 Bilateral primary osteoarthritis of hip; M81.0 Age-related osteoporosis without current pathological fracture; Z91.19 Patient's noncompliance with other medical treatment and regimen; Z79.01 Long term (current) use of anticoagulants; Z79.899 Other long term (current) drug therapy; Z89.612 Acquired absence of left leg above knee; Z86.718 Personal history of other venous thrombosis and embolism; Z86.711 Personal history of pulmonary embolism
CPT/HCPCS: 11042

== ENCOUNTER 2019-12-23 08:30 | Outpatient (RCR) | payer MEDICARE, OTHER, SELFPAY ==
[2019-12-18 00:30] VITALS: BP 120/48; PULSE 72; RESP 18; TEMP 37.1
[2019-12-23 14:04] VITALS: BP 124/66; PULSE 76; RESP 16; TEMP 35.7; BMI 17.7
--- NOTE | 2019-12-23 17:06 | PN.PCM_ITS ---
(1) Stage III pressure ulcer Status: Chronic Current Visit: Yes Qualifiers: Code(s): L89.93 - Pressure ulcer of unspecified site, stage 3 Comment: coccyx (2) Malnutrition Status: Acute Current Visit: Yes Code(s): E46 - Unspecified protein-calorie malnutrition (3) Amputation of left lower extremity Status: Chronic Current Visit: Yes Qualifiers: Code(s): S88.912A - Complete traumatic amputation of left lower leg, level unspecified, initial encounter (4) Hyperlipidemia Status: Chronic Current Visit: No Code(s): E78.5 - Hyperlipidemia, unspecified (5) Hypertension Status: Chronic Current Visit: No Code(s): I10 - Essential (primary) hypertension (6) Hypothyroidism Status: Chronic Current Visit: No Code(s): E03.9 - Hypothyroidism, unspecified (7) Immobility Status: Chronic Current Visit: No Code(s): Z74.09 - Other reduced mobility Type of Wound Date of Service: 12/23/19 Chief Complaint: Stage III pressure 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 She has a past medical history of left [id number] amputee, DVT, PE with long-term Coumadin anticoagulation, anemia, RA and OA. Patient and family believe the wound started around November 2017 due to pressure and constantly sitting in her chair. Her wound has been noted on multiple hospital admissions in the past. Cultures were previously done in January 2018 and demonstrated staph, Klebsiella, and Proteus and patient completed Levaquin and ampicillin therapy. The patient has also been in and out of the senior care. She is currently residing at home with her . Due to her amputation, her mobility is severely limited and she spends most of her time sitting in either her wheelchair or her reclining chair at home. She does have a hospital bed that she sleeps in at night. She does state that she has an excoriated buttocks as well due to having to scoot from her wheelchair to reclining chair and wheelchair to bed. She has been using Paola for dressing the wound and is on a palliative treatment plan. Denies any heavy drainage, though does state that the ulcer bleeds at times. Denies any systemic signs of infection at this time. The patient otherwise denies any fever, chills, nausea, vomiting, shortness of breath, chest pain or pressure, palpitations, orthopnea, lower extremity edema, syncope or presyncopal episodes. Progress of Wound: Size stable, no signs of infection, patient doing well with palliative wound care, still has difficulty remaining compliant with offloading. Still declining referral to surgery for evaluation. Will check xray to rule out osteomyelitis. - Physical Exam Vital Signs Temp Pulse Resp BP 96.2 F L 76 16 124/66 H 12/23/19 14:04 12/23/19 14:04 12/23/19 14:04 12/23/19 14:04 General: Alert, Oriented x3, Cooperative, No apparent distress HEENT: Atraumatic Oral: Moist Mucosa Lungs: Clear to auscultation, Normal air movement Cardiovascular: Regular rate, Regular Rhythm Abdomen: Soft, Non Tender Extremities: No clubbing, No cyanosis, - - Left lower extremity amputation Skin: Ulcer/ Wound - See nursing documentation, slough and devitalized tissue present, no signs of infection at this time. Wound Measurements and Assessment WC - Nurse 1 - General Ulcer Measurement Start: 12/23/19 14:04 Freq: Status: Active Protocol: Activity Type Activity Date Activity User E-Sign Co-Sign Detail Recorded Client Recorded Date Recorded By Document 12/23/19 14:04 [id number] 12/23/19 14:05 12/23/19 14:04 Wound Center Nurse 1 [Ulcer Assessment] #3 Coccyx -Combined with other wound No -Current Size (cm) - Length 1.4 -Current Size (cm) - Width 1.1 -Current Size (cm) - Depth 0.5 -Total Square Cm 1.54 -Photo Taken No -Epithelialization None Present -Tunneling No -Undermining/Tunneling No -Circular Undermining No -Exudate Amt Small -Exudate Type Serous -Wound Margin Distinct, Outline Attached -Granulation Amt Large (67-100%) -Granulation Quality Red -Slough/Fibrin Yes -Necrosis Amt None Present (0 %) -Necrotic Tissue Type Adherent Slough -Texture (Alexus-wound Skin Appearance) No Abnormality, Assessed -Moisture (Alexus-wound Skin Appearance Assessed, ) Maceration -Color (Alexus-wound Skin Appearance) No Abnormality, Assessed -Temperature (Alexus-wound Skin No Abnormality Appearance) (Pt Warm) -Tenderness on Palpation (Alexus-wound No Skin Appearance) -Ulcer Cleansing Rinsed/ Irrigated with Saline -Foul Odor after Cleansing No -Anesthetic Used 5% Lidocaine Gel [Edema Assessment] -Lower Limb Edema Present NA - Nurse 2 - General Ulcer CM Notes Start: 12/23/19 14:04 Freq: Status: Active Protocol: Activity Type Activity Date Activity User E-Sign Co-Sign Detail Recorded Client Recorded Date Recorded By Document 12/23/19 14:28 MW [id number] 12/23/19 14:32 MW 12/23/19 14:28 Wound Center Nurse 2 [Procedure/Treatment] #3 Coccyx -Time 14:31 -Correct Patient Yes -Correct Side, Site, Position Yes -Correct Procedure Yes -Procedure Performed Yes -Type of Procedure Debridement -Clinical Debridement Subcutaneous -Post Debridement Size (cm) - Length 1.5 -Post Debridement Size (cm) - Width 1.5 -Post Debridement Size (cm) - Depth 0.7 -Total Square Cm 2.25 -Wound/Ulcer Outcome Not Healed -Ulcer Cleansing Rinsed/ Irrigated with Saline -Foul Odor after Cleansing No -Bioengineered Tissue No -Bleeding Controlled with Pressure -Offloading No -Treatment Response Procedure Tolerated Well [See Physician Procedure note for Specifics] Pain Scale: 0-10 Numeric [Pain] -Is Patient Pain Free? Yes Neurological: Neuro grossly intact Psych/Mental Status: Normal Affect, Appropriate, Alert and oriented to time, place, person, mood and affect Debridement Note Post-Debridement Measurements/Treatment - Nurse 2 - General Ulcer CM Notes Start: 12/23/19 14:04 Freq: Status: Active Protocol: Activity Type Activity Date Activity User E-Sign Co-Sign Detail Recorded Client Recorded Date Recorded By Document 12/23/19 14:28 MW [id number] 12/23/19 14:32 MW 12/23/19 14:28 Wound Center Nurse 2 #3 Coccyx -Time 14:31 -Correct Patient Yes -Correct Side, Site, Position Yes -Correct Procedure Yes -Procedure Performed Yes -Type of Procedure Debridement -Clinical Debridement Subcutaneous -Post Debridement Size (cm) - Length 1.5 -Post Debridement Size (cm) - Width 1.5 -Post Debridement Size (cm) - Depth 0.7 -Total Square Cm 2.25 -Wound/Ulcer Outcome Not Healed -Ulcer Cleansing Rinsed/ Irrigated with Saline -Foul Odor after Cleansing No -Bioengineered Tissue No -Bleeding Controlled with Pressure -Offloading No -Treatment Response Procedure Tolerated Well Pain Scale: 0-10 Numeric Is Patient Pain Free? Yes Wound debrided: Stage III pressure injury of coccyx Type of Debridement: Excisional debridement Anesthesia Used: 5% Lidocaine Gel Depth: in the subcutaneous layer Percentage of wound debrided: 100 Instrument Used: 5mm curette Tissue Removed: Slough and devitalized tissue Severity: Fat Layer Exposed Amount of bleeding with debridement: Mild Bleeding Controlled with: Pressure Patient tolerated procedure well Assessment/Plan Active Problems Stage III pressure ulcer (Chronic) coccyx Amputation of left lower extremity (Chronic) Malnutrition (Acute) Assessment: See above diagnoses Plan: The patient was seen and examined at the wound center today. A subcutaneous debridement was performed today. The patient tolerated the procedure well. The patients wound care will consist of: Paola and optifoam/ABD daily. Patient and daughter agree to continue on a palliative wound plan given the multiple wound care failures and patients multiple comorbidities that interfere with wound healing. Discussed this with patient and daughter. Pt to continue with offloading interventions such as turning q2h in bed at night and offloading when sitting, however she is noncompliant with this. previous culture s collected were negative. Baseline bloodwork reviewed and prealbumin was very low, encouraged the use of high protien drinks and to drink at minimum 3-4 ensure drinks per day, however patient is noncompliant with this. Patient educated on the importance of diet on wound healing and instructed to increase protein and vitamin C intake. Patient verbalized understanding. Due to patient's limited mobility and stage III pressure ulcer, she would benefit from the use of a sliding board and the use of a gel cushion for her wheelchair. Orders for the supplies were given. Patient will follow up at wound healing center in 4 weeks or sooner if needed. This note was generated with [employer] dictation software. It may contain incorrect words, spelling, and punctuation that were not noted in checking the note before signing. Code Visit 111xxx-113xx: [id number] Angie subq tissue 20 sq cm/<
== END 2020-01-15 23:59 ==
LOC: WC 08:30
PROVIDERS: Family Provider Family Medicine; PCP Family Medicine; Visit Provider Nurse Practitioner Family
DX: L89.153 Pressure ulcer of sacral region, stage 3 (principal); E78.5 Hyperlipidemia, unspecified; Z89.612 Acquired absence of left leg above knee; I10 Essential (primary) hypertension; E03.9 Hypothyroidism, unspecified; Z86.718 Personal history of other venous thrombosis and embolism; Z79.01 Long term (current) use of anticoagulants; M06.9 Rheumatoid arthritis, unspecified; M19.90 Unspecified osteoarthritis, unspecified site
CPT/HCPCS: 11042

== ENCOUNTER → 2020-01-06 12:21 | Outpatient (CLI) | payer MEDICARE, OTHER, SELFPAY ==
[2019-12-23 14:04] VITALS: BMI 17.7
--- NOTE | 2020-01-06 12:27 | RAD_ITS ---
STUDY: X-RAY - SACRUM/COCCYX REASON FOR EXAM: Female, 84 years old. NON-HEALING PRESSURE SORE. TECHNIQUE: 3 view(s) of the sacrum and coccyx were obtained. COMPARISON: None. FINDINGS: Normal bilateral sacroiliac joints. Normal visualized sacral ala and fused sacral bodies. Normal sacrococcygeal junction with a normal angulation. Normal coccygeal segments. The presacral soft tissue structures are unremarkable. RAD/Sacrum-Coccyx min 2 Views IMPRESSION: Normal x-rays of the sacrum and coccyx. Electronically Signed: Carl Zavala MD at 10:13 EST Tel , Service support ,
== END ==
PROVIDERS: PCP Family Medicine; Referring Provider Nurse Practitioner Family; Visit Provider Nurse Practitioner Family
DX: L89.153 Pressure ulcer of sacral region, stage 3 (principal)
CPT/HCPCS: 72220

== ENCOUNTER 2020-01-27 12:50 | Outpatient (RCR) | payer MEDICARE, OTHER, SELFPAY ==
[2020-01-16 00:25] VITALS: BP 124/66; PULSE 76; RESP 16; TEMP 35.7
[2020-01-27 13:09] VITALS: BP 103/47; PULSE 84; RESP 18; TEMP 37.3; BMI 17.7
--- NOTE | 2020-01-27 20:02 | PCM.WC.PN ---
(1) Stage III pressure ulcer Status: Chronic Current Visit: Yes Qualifiers: Code(s): L89.93 - Pressure ulcer of unspecified site, stage 3 Comment: coccyx (2) Excoriation of buttock Status: Acute Current Visit: No Qualifiers: Code(s): S30.810A - Abrasion of lower back and pelvis, initial encounter (3) Iron (Fe) deficiency anemia Status: Acute Current Visit: No Code(s): D50.9 - Iron deficiency anemia, unspecified (4) Malnutrition Status: Acute Current Visit: No Code(s): E46 - Unspecified protein-calorie malnutrition (5) Amputation of left lower extremity Status: Chronic Current Visit: No Qualifiers: Code(s): S88.912A - Complete traumatic amputation of left lower leg, level unspecified, initial encounter (6) Hypertension Status: Chronic Current Visit: No Code(s): I10 - Essential (primary) hypertension (7) Hypothyroidism Status: Chronic Current Visit: No Code(s): E03.9 - Hypothyroidism, unspecified (8) Immobility Status: Chronic Current Visit: No Code(s): Z74.09 - Other reduced mobility (9) Osteoarthritis of hips, bilateral Status: Chronic Current Visit: No Code(s): M16.0 - Bilateral primary osteoarthritis of hip Type of Wound Date of Service: 01/27/20 Chief Complaint: Stage III pressure 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 She has a past medical history of left txyim-xxq-lmdk amputee, DVT, PE with long-term Coumadin anticoagulation, anemia, RA and OA. Patient and family believe the wound started around November 2017 due to pressure and constantly sitting in her chair. Her wound has been noted on multiple hospital admissions in the past. Cultures were previously done in January 2018 and demonstrated staph, Klebsiella, and Proteus and patient completed Levaquin and ampicillin therapy. The patient has also been in and out of the jail. She is currently residing at home with her . Due to her amputation, her mobility is severely limited and she spends most of her time sitting in either her wheelchair or her reclining chair at home. She does have a hospital bed that she sleeps in at night. She does state that she has an excoriated buttocks as well due to having to scoot from her wheelchair to reclining chair and wheelchair to bed. She has been using Paola for dressing the wound and is on a palliative treatment plan. Denies any heavy drainage, though does state that the ulcer bleeds at times. Denies any systemic signs of infection at this time. The patient otherwise denies any fever, chills, nausea, vomiting, shortness of breath, chest pain or pressure, palpitations, orthopnea, lower extremity edema, syncope or presyncopal episodes. Progress of Wound: Size stable, no signs of infection, patient doing well with palliative wound care, still has difficulty remaining compliant with offloading. Still declining referral to surgery for evaluation. X-ray of the sacrum was reviewed from prior and was negative.No new concerns. - Physical Exam Vital Signs Temp Pulse Resp BP 99.1 F 84 18 103/47 L 01/27/20 13:09 01/27/20 13:01/27/20 13:01/27/20 13:09 General: Alert, Oriented x3, Cooperative, No apparent distress HEENT: Atraumatic Oral: Moist Mucosa Lungs: Clear to auscultation, Normal air movement Cardiovascular: Regular rate Abdomen: Soft, Non Tender Extremities: No clubbing, No cyanosis, No edema, - - Left lower extremity amputation Skin: Ulcer/ Wound - See nursing documentation, slough and devitalized tissue present, no signs of infection at this time Wound Measurements and Assessment WC - Nurse 1 - General Ulcer Measurement Start: 01/27/20 13:09 Freq: Status: Active Protocol: Activity Type Activity Date Activity User E-Sign Co-Sign Detail Recorded Client Recorded Date Recorded By Document 01/27/20 13:09 RB [id number] 01/27/20 13:11 RB 01/27/20 13:09 Wound Center Nurse 1 [Ulcer Assessment] #3 Coccyx -Combined with other wound No -Current Size (cm) - Length 1.5 -Current Size (cm) - Width 1 -Current Size (cm) - Depth 0.4 -Total Square Cm 1.5 -Photo Taken Yes -Tunneling No -Undermining/Tunneling No -Circular Undermining No -Exudate Amt Small -Exudate Type Serosanguineous -Wound Margin Flat & Intact -Granulation Amt Medium (34-66%) -Granulation Quality [place] -Slough/Fibrin Yes -Necrosis Amt Small (1-33%) -Necrotic Tissue Type Adherent Slough -Structure Exposed N/A -Texture (Alexus-wound Skin Appearance) Assessed -Moisture (Alexus-wound Skin Appearance Assessed ) -Color (Alexus-wound Skin Appearance) Assessed -Temperature (Alexus-wound Skin No Abnormality Appearance) (Pt Warm) -Tenderness on Palpation (Alexus-wound No Skin Appearance) -Ulcer Cleansing Wound Cleanser -Foul Odor after Cleansing No -Anesthetic Used 5% Lidocaine Gel WC - Nurse 2 - General Ulcer CM Notes Start: 01/27/20 13:09 Freq: Status: Active Protocol: Activity Type Activity Date Activity User E-Sign Co-Sign Detail Recorded Client Recorded Date Recorded By Document 01/27/20 13:19 [id number] 01/27/20 13:19 01/27/20 13:19 Wound Center Nurse 2 [Procedure/Treatment] -Time 13:19 -Correct Patient Yes -Correct Side, Site, Position Yes -Correct Procedure Yes -Procedure Performed Yes -Type of Procedure Debridement -Clinical Debridement Subcutaneous -Post Debridement Size (cm) - Length 1.2 -Post Debridement Size (cm) - Width 1 -Post Debridement Size (cm) - Depth 0.5 -Total Square Cm 1.2 -Wound/Ulcer Outcome Not Healed -Ulcer Cleansing Rinsed/ Irrigated with Saline -Foul Odor after Cleansing No -Bioengineered Tissue No -Bleeding Controlled with Pressure -Offloading No -Treatment Response Procedure Tolerated Well [See Physician Procedure note for Specifics] Pain Scale: 0-10 Numeric [Pain] -Is Patient Pain Free? Yes Neurological: Neuro grossly intact Psych/Mental Status: Normal Affect, Appropriate, Alert and oriented to time, place, person, mood and affect Debridement Note Post-Debridement Measurements/Treatment WC - Nurse 2 - General Ulcer CM Notes Start: 01/27/20 13:09 Freq: Status: Active Protocol: Activity Type Activity Date Activity User E-Sign Co-Sign Detail Recorded Client Recorded Date Recorded By Document 01/27/20 13:19 JF [id number] 01/27/20 13:19 JF 01/27/20 13:19 Wound Center Nurse 2 #3 Coccyx -Time 13:19 -Correct Patient Yes -Correct Side, Site, Position Yes -Correct Procedure Yes -Procedure Performed Yes -Type of Procedure Debridement -Clinical Debridement Subcutaneous -Post Debridement Size (cm) - Length 1.2 -Post Debridement Size (cm) - Width 1 -Post Debridement Size (cm) - Depth 0.5 -Total Square Cm 1.2 -Wound/Ulcer Outcome Not Healed -Ulcer Cleansing Rinsed/ Irrigated with Saline -Foul Odor after Cleansing No -Bioengineered Tissue No -Bleeding Controlled with Pressure -Offloading No -Treatment Response Procedure Tolerated Well Pain Scale: 0-10 Numeric Is Patient Pain Free? Yes Wound debrided: Stage III pressure injury to sacrum Type of Debridement: Excisional debridement Anesthesia Used: 5% Lidocaine Gel Depth: in the subcutaneous layer Percentage of wound debrided: 100 Instrument Used: 5mm curette Tissue Removed: Slough and devitalized tissue Severity: Fat Layer Exposed Amount of bleeding with debridement: Mild Bleeding Controlled with: Pressure Patient tolerated procedure well Assessment/Plan Active Problems Stage III pressure ulcer (Chronic) coccyx Assessment: See above diagnoses Plan: The patient was seen and examined at the wound center today. A subcutaneous debridement was performed today. The patient tolerated the procedure well. The patients wound care will consist of: Paola and optifoam/ABD daily. Patient and daughter agree to continue on a palliative wound plan given the multiple wound care failures and patients multiple comorbidities that interfere with wound healing. Discussed this with patient and daughter. Pt to continue with offloading interventions such as turning q2h in bed at night and offloading when sitting, however she is noncompliant with this. previous cultures collected were negative. Baseline bloodwork reviewed and prealbumin was very low, encouraged the use of high protien drinks and to drink at minimum 3-4 ensure drinks per day, however patient is noncompliant with this. Patient educated on the importance of diet on wound healing and instructed to increase protein and vitamin C intake. Patient verbalized understanding. Due to patient's limited mobility and stage III pressure ulcer, she would benefit from the use of a sliding board and the use of a gel cushion for her wheelchair. Orders for the supplies were given. Patient will follow up at wound healing center in 4 weeks or sooner if needed. This note was generated with [employer] software. It may contain incorrect words, spelling, and punctuation that were not noted in checking the note before signing. 111xxx-113xx: [id number] Angie subq tissue 20 sq cm/<
== END 2020-02-15 23:59 ==
LOC: WC 12:50
PROVIDERS: Family Provider Family Medicine; PCP Family Medicine; Visit Provider Nurse Practitioner Family
DX: L89.153 Pressure ulcer of sacral region, stage 3 (principal); I10 Essential (primary) hypertension; E03.9 Hypothyroidism, unspecified; Z89.612 Acquired absence of left leg above knee; M16.0 Bilateral primary osteoarthritis of hip; Z86.711 Personal history of pulmonary embolism; Z86.718 Personal history of other venous thrombosis and embolism; Z79.01 Long term (current) use of anticoagulants; M06.9 Rheumatoid arthritis, unspecified; M19.90 Unspecified osteoarthritis, unspecified site; Z91.19 Patient's noncompliance with other medical treatment and regimen
CPT/HCPCS: 11042

== ENCOUNTER 2020-04-06 10:44 | Outpatient (RCR) | payer MEDICARE, OTHER, SELFPAY ==
[2020-04-06 10:47] VITALS: BP 134/59; PULSE 71; RESP 16; TEMP 36.4; BMI 17.7
--- NOTE | 2020-04-06 11:59 | PCM.WC.HP ---
(1) Stage III pressure ulcer Status: Chronic Current Visit: Yes Qualifiers: Qualified Code(s): L89.153 - Pressure ulcer of sacral region, stage 3 Code(s): L89.93 - Pressure ulcer of unspecified site, stage 3 Comment: coccyx (2) Immobility Status: Chronic Current Visit: Yes Code(s): Z74.09 - Other reduced mobility History of Present Illness Date of Service: 04/06/20 Chief Complaint: 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 Last seen here about 6 weeks ago, comes in monthly. They have been applying Paola with OptiForm over top daily to twice daily depending on drainage/contamination. No acute concerns at this time. He denies chills, fever otherwise feeling of unwell. Past Medical History Past Medical History: Chronic Problems Stage III pressure ulcer (Chronic) coccyx Amputation of left lower extremity (Chronic) Immobility (Chronic) Osteoporosis (Chronic) Hypothyroidism (Chronic) Warfarin-induced coagulopathy (Chronic) hx VT-chronic Hypertension (Chronic) DVT (deep venous thrombosis) (Chronic) Hyperlipidemia (Chronic) Osteoarthritis of hips, bilateral (Chronic) Surgical History: cholecystectomy, total hip arthroplasty - Bilateral., total knee arthroplasty - Left., - - D&C, bigbo-pwz-vxto 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 Allergies/Adverse Reactions: Allergies amoxicillin [From Augmentin] Allergy (Verified 06/29/18 19:33) Hives azathioprine [From Imuran] Allergy (Verified 06/29/18 19:33) Hives ceftriaxone Allergy (Verified 06/29/18 19:33) Hives celecoxib Allergy (Verified 06/29/18 19:33) Hives clavulanic acid [From Augmentin] Allergy (Verified 06/29/18 19:33) Hives etodolac Allergy (Verified 06/29/18 19:33) Hives methotrexate Allergy (Verified 06/29/18 19:33) effect to liver NSAIDS (Non-Steroidal Anti-Inflamma Allergy (Verified 06/29/18 19:33) Hives Penicillins Allergy (Verified 06/29/18 19:33) Hives sulfamethoxazole Allergy (Verified 06/29/18 19:33) Hives arthritis medications Allergy (Uncoded 02/23/18 09:38) effected the liver Home Medications: Ambulatory Orders Medication Instructions Recorded Levothyroxine [Synthroid] 88 mcg PO DAILY 07/28/16 Lisinopril [Zestril] 40 mg PO DAILY 07/28/16 Simvastatin [Zocor] 20 mg PO QHS 07/28/16 Warfarin [Coumadin] 0.5 mg PO [id number] 07/28/16 Amlodipine [Norvasc] 5 mg PO DAILY 01/25/18 Hydrocodone Bitart/Apap 5-325 1 tablet PO Q6H PRN PRN 01/25/18 [Brent 5MG-325MG] Ferrous Sulfate 325 mg PO DAILY 05/25/19 Fluoxetine HCl 20 mg PO DAILY 05/25/19 Hydrochlorothiazide 12.5 mg PO DAILY 05/25/19 Nitrofurantoin Macrocrystals 100 mg PO Q12 #14 cap 05/25/19 [Macrobid] Warfarin [Coumadin ([facility]KC)] 1 mg PO WINN 05/25/19 - Family History Maternal No pertinent history Paternal No pertinent history Smoking Status: Never smoker Review of Systems Constitutional: Denies: Anorexia, Chills, Fever Eyes: Denies: Pain, Redness HEENT: Denies: Difficulty Swallowing Cardiovascular: Denies: Chest Pain, Chest Pressure, Chest Tightness, Orthopnea, Palpitations Respiratory: Denies: Cough, Hemoptysis Gastrointestinal: Denies: Abdominal Pain, Hematemesis, Vomiting Genitourinary: Denies: Hematuria - Physical Exam Vital Signs Temp Pulse Resp BP 97.6 F L 71 16 134/59 H 04/06/20 10:47 04/06/20 10:47 04/06/20 10:47 04/06/20 10:47 General: Alert, Cooperative, No apparent distress HEENT: Atraumatic, Normocephalic Oral: Moist Mucosa Neck: Supple Lungs: Normal air movement Abdomen: Non Tender Extremities: No cyanosis Wound Measurements and Assessment WC - Nurse 1 - General Ulcer Measurement Start: 04/06/20 10:46 Freq: Status: Active Protocol: Activity Type Activity Date Activity User E-Sign Co-Sign Detail Recorded Client Recorded Date Recorded By Document 04/06/20 10:47 [facility] [id number] 04/06/20 10:54 BMF 04/06/20 10:47 Wound Center Nurse 1 [Ulcer Assessment] #3 Coccyx -Combined with other wound No -Current Size (cm) - Length 1.5 -Current Size (cm) - Width 1 -Current Size (cm) - Depth 0.7 -Total Square Cm 1.5 -Date of Last Picture (Recall this 04/06/20 field) -Photo Taken Yes -Epithelialization None Present -Tunneling No -Undermining/Tunneling No -Circular Undermining No -Exudate Amt Small -Exudate Type Serosanguineous -Wound Margin Distinct, Outline Attached -Granulation Amt Large (67-100%) -Granulation Quality Red -Slough/Fibrin Yes -Necrosis Amt Small (1-33%) -Necrotic Tissue Type Adherent Slough -Texture (Alexus-wound Skin Appearance) Assessed, Scarring -Moisture (Alexus-wound Skin Appearance Assessed, ) Maceration -Color (Alexus-wound Skin Appearance) Assessed, Erythema,Palor -Temperature (Alexus-wound Skin No Abnormality Appearance) (Pt Warm) -Tenderness on Palpation (Alexus-wound Yes Skin Appearance) -Ulcer Cleansing Rinsed/ Irrigated with Saline -Foul Odor after Cleansing No -Anesthetic Used 5% Lidocaine Gel WC - Nurse 2 - General Ulcer CM Notes Start: 04/06/20 10:46 Freq: Status: Active Protocol: Activity Type Activity Date Activity User E-Sign Co-Sign Detail Recorded Client Recorded Date Recorded By Document 04/06/20 11:10 MW [id number] 04/06/20 11:13 MW 04/06/20 11:10 Wound Center Nurse 2 [Procedure/Treatment] -Time 11:11 -Correct Patient Yes -Correct Side, Site, Position Yes -Correct Procedure Yes -Procedure Performed Yes -Type of Procedure Debridement -Clinical Debridement Subcutaneous -Post Debridement Size (cm) - Length 1.4 -Post Debridement Size (cm) - Width 1.0 -Post Debridement Size (cm) - Depth 0.2 -Total Square Cm 1.40 -Wound/Ulcer Outcome Not Healed -Ulcer Cleansing Rinsed/ Irrigated with Saline -Foul Odor after Cleansing No -Bioengineered Tissue No -Bleeding Controlled with Pressure -Offloading No -Treatment Response Procedure Tolerated Well [See Physician Procedure note for Specifics] Pain Scale: 0-10 Numeric [Pain] -Is Patient Pain Free? Yes Psych/Mental Status: Normal Affect Debridement Note Post-Debridement Measurements/Treatment WC - Nurse 2 - General Ulcer CM Notes Start: 04/06/20 10:46 Freq: Status: Active Protocol: Activity Type Activity Date Activity User E-Sign Co-Sign Detail Recorded Client Recorded Date Recorded By Document 04/06/20 11:10 MW [id number] 04/06/20 11:13 MW 04/06/20 11:10 Wound Center Nurse 2 #3 Coccyx -Time 11:11 -Correct Patient Yes -Correct Side, Site, Position Yes -Correct Procedure Yes -Procedure Performed Yes -Type of Procedure Debridement -Clinical Debridement Subcutaneous -Post Debridement Size (cm) - Length 1.4 -Post Debridement Size (cm) - Width 1.0 -Post Debridement Size (cm) - Depth 0.2 -Total Square Cm 1.40 -Wound/Ulcer Outcome Not Healed -Ulcer Cleansing Rinsed/ Irrigated with Saline -Foul Odor after Cleansing No -Bioengineered Tissue No -Bleeding Controlled with Pressure -Offloading No -Treatment Response Procedure Tolerated Well Pain Scale: 0-10 Numeric Is Patient Pain Free? Yes Wound debrided: Coccygeal Wound Grade/Stage: Stage III Type of Debridement: Excisional debridement Anesthesia Used: 4% Lidocaine Solution Depth: Down to and including healthy tissue, in the subcutaneous layer Percentage of wound debrided: 100 Instrument Used: 3mm curette Tissue Removed: Slough and devitalized tissue Severity: Fat Layer Exposed Amount of bleeding with debridement: Mild Bleeding Controlled with: Pressure Patient tolerated procedure well Assessment/Plan Active Problems Stage III pressure ulcer (Chronic) coccyx Immobility (Chronic) Assessment: See above diagnoses Plan: Debridement done as documented above, procedure was well-tolerated. Continue Paola and OptiForm. Continue offloading, increased protein intake and exercise as tolerated. Their questions were answered and they were advised to call with any further questions or concerns. Follow-up in a month. This note was generated with [employer] dictation software. It may contain incorrect words, spelling, and punctuation that were not noted in checking the note before signing. Multi Select Codes - Visit Charges Office Visit/Consults: 37137 OV L3 Est - Integumentary Integumentary CPT Codes: 61457 Angie subq tissue 20 sq cm/<
== END 2020-04-16 23:59 ==
LOC: WC 10:44
PROVIDERS: PCP Family Medicine; Visit Provider Internal Medicine
DX: L89.153 Pressure ulcer of sacral region, stage 3 (principal); E78.5 Hyperlipidemia, unspecified; Z86.718 Personal history of other venous thrombosis and embolism; I10 Essential (primary) hypertension; Z89.612 Acquired absence of left leg above knee; E03.9 Hypothyroidism, unspecified; T45.515A Adverse effect of anticoagulants, initial encounter; Z79.899 Other long term (current) drug therapy; Z79.01 Long term (current) use of anticoagulants; M16.0 Bilateral primary osteoarthritis of hip
CPT/HCPCS: 11042; 99213; G0463

== ENCOUNTER 2020-05-04 08:25 | Outpatient (RCR) | payer MEDICARE, OTHER, SELFPAY ==
[2020-04-17 00:35] VITALS: BP 134/59; PULSE 71; RESP 16; TEMP 36.4
[2020-05-04 12:02] VITALS: BP 115/58; PULSE 77; RESP 18; TEMP 37.1; BMI 17.7
--- NOTE | 2020-05-04 12:40 | PN.PCM_ITS ---
(1) Immobility Status: Chronic Current Visit: Yes Code(s): Z74.09 - Other reduced mobility (2) Stage III pressure ulcer Status: Chronic Current Visit: Yes Qualifiers: Code(s): L89.93 - Pressure ulcer of unspecified site, stage 3 Comment: coccyx Type of Wound Date of Service: 05/04/20 Chief Complaint: 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 Last seen here about 6 weeks ago, comes in monthly. They have been applying Paola with OptiForm over top daily to twice daily depending on drainage/contamination. No acute concerns at this time. He denies chills, fever otherwise feeling of unwell. Progress of Wound: No new concerns at this time. - Physical Exam Vital Signs Temp Pulse Resp BP 98.8 F 77 18 115/58 L 05/04/20 12:02 05/04/20 12:02 05/04/20 12:02 05/04/20 12:02 General: Alert, Oriented x3, Cooperative, No apparent distress HEENT: Atraumatic, Normocephalic Oral: Moist Mucosa Neck: Supple Lungs: Normal air movement Extremities: No cyanosis Skin: Ulcer/ Wound Wound Measurements and Assessment WC - Nurse 1 - General Ulcer Measurement Start: 05/04/20 12:02 Freq: Status: Active Protocol: Activity Type Activity Date Activity User E-Sign Co-Sign Detail Recorded Client Recorded Date Recorded By Document 05/04/20 12:02 RIVERA [id number] 05/04/20 12:16 DL 05/04/20 12:02 Wound Center Nurse 1 [Ulcer Assessment] #4 Sacrum -Current Size (cm) - Length 1.4 -Current Size (cm) - Width 0.9 -Current Size (cm) - Depth 0.3 -Total Square Cm 1.26 -Photo Taken No -Exudate Amt Small -Exudate Type Serosanguineous -Wound Margin Distinct, Outline Attached -Granulation Amt Large (67-100%) -Granulation Quality [place] -Necrosis Amt None Present (0 %) -Structure Exposed N/A -Texture (Alexus-wound Skin Appearance) Scarring -Moisture (Alexus-wound Skin Appearance No Abnormality ) -Color (Alexus-wound Skin Appearance) No Abnormality -Temperature (Alexus-wound Skin No Abnormality Appearance) (Pt Warm) -Tenderness on Palpation (Alexus-wound No Skin Appearance) -Ulcer Cleansing Wound Cleanser -Foul Odor after Cleansing No -Anesthetic Used 5% Lidocaine Gel Neurological: Cranial nerves II-XII grossly intact Psych/Mental Status: Normal Affect Debridement Note Wound debrided: Coccygeal Ulcer Wound Grade/Stage: Stage III Type of Debridement: Excisional debridement Anesthesia Used: 4% Lidocaine Solution Depth: Down to and including healthy tissue, in the subcutaneous layer Percentage of wound debrided: 100 Instrument Used: 3mm curette Tissue Removed: Slough and devitalized tissue Severity: Fat Layer Exposed Amount of bleeding with debridement: Mild Bleeding Controlled with: Pressure Patient tolerated procedure well Assessment/Plan Active Problems Stage III pressure ulcer (Chronic) coccyx Immobility (Chronic) Assessment: See above diagnoses Plan: Debridement done as documented above, procedure was well-tolerated. Continue Paola and OptiForm. Continue offloading, increased protein intake and exercise as tolerated. Their questions were answered and they were advised to call with any further questions or concerns. Follow-up in a month. This note was generated with [employer] dictation software. It may contain incorrect words, spelling, and punctuation that were not noted in checking the note before signing. 111xxx-113xx: [id number] Angie subq tissue 20 sq cm/<
== END 2020-05-16 23:59 ==
LOC: WC 08:25
PROVIDERS: PCP Family Medicine; Visit Provider Internal Medicine
DX: L89.153 Pressure ulcer of sacral region, stage 3 (principal)
CPT/HCPCS: 11042

== ENCOUNTER 2020-06-01 09:21 | Outpatient (RCR) | payer MEDICARE, OTHER, SELFPAY ==
[2020-05-17 00:32] VITALS: BP 115/58; PULSE 77; RESP 18; TEMP 37.1
[2020-06-01 12:47] VITALS: BP 104/43; PULSE 65; RESP 18; TEMP 37; BMI 17.7
--- NOTE | 2020-06-01 13:48 | PN.PCM_ITS ---
(1) Stage III pressure ulcer Status: Chronic Current Visit: Yes Qualifiers: Code(s): L89.93 - Pressure ulcer of unspecified site, stage 3 Comment: coccyx (2) Malnutrition Status: Acute Current Visit: Yes Code(s): E46 - Unspecified protein-calorie malnutrition (3) Amputation of left lower extremity Status: Chronic Current Visit: No Qualifiers: Code(s): S88.912A - Complete traumatic amputation of left lower leg, level unspecified, initial encounter (4) Hyperlipidemia Status: Chronic Current Visit: No Code(s): E78.5 - Hyperlipidemia, unspecified (5) Hypertension Status: Chronic Current Visit: No Code(s): I10 - Essential (primary) hypertension (6) Hypothyroidism Status: Chronic Current Visit: No Code(s): E03.9 - Hypothyroidism, unspecified (7) Immobility Status: Chronic Current Visit: No Code(s): Z74.09 - Other reduced mobility (8) Osteoarthritis of hips, bilateral Status: Chronic Current Visit: No Code(s): M16.0 - Bilateral primary osteoarthritis of hip (9) Osteoporosis Status: Chronic Current Visit: No Code(s): M81.0 - Age-related osteoporosis without current pathological fracture Type of Wound Date of Service: 06/01/20 Chief Complaint: 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 She is currently on a complex wound care plan. She has had multiple wound care failures. Last seen here about 4 weeks ago, comes in monthly. They have been applying Paola with OptiForm over top daily to twice daily depending on drainage/contamination. No acute concerns at this time. She denies chills, fever otherwise feeling of unwell. Progress of Wound: No new concerns at this time. - Physical Exam Vital Signs Temp Pulse Resp BP 98.6 F 65 18 104/43 L 06/01/20 12:47 06/01/20 12:47 06/01/20 12:47 06/01/20 12:47 General: Alert, Oriented x3, Cooperative, No apparent distress HEENT: Atraumatic Oral: Moist Mucosa Lungs: Clear to auscultation, Normal air movement Cardiovascular: Regular rate, Regular Rhythm Abdomen: Soft, Non Tender Extremities: - - Left lower extremity amputation Skin: Ulcer/ Wound - Stage III pressure ulcer on the coccyx with beefy red wound bed and only small amount of slough, no signs of infection at this time. Wound Measurements and Assessment WC - Nurse 1 - General Ulcer Measurement Start: 06/01/20 12:47 Freq: Status: Active Protocol: Activity Type Activity Date Activity User E-Sign Co-Sign Detail Recorded Client Recorded Date Recorded By Document 06/01/20 12:47 RB [id number] 06/01/20 12:54 RB 06/01/20 12:47 Wound Center Nurse 1 [Ulcer Assessment] #4 Sacrum -Combined with other wound No -Current Size (cm) - Length 1.4 -Current Size (cm) - Width 1 -Current Size (cm) - Depth 0.4 -Total Square Cm 1.4 -Photo Taken Yes -Tunneling No -Undermining/Tunneling No -Circular Undermining No -Exudate Amt Small -Exudate Type Serosanguineous -Wound Margin Flat & Intact -Granulation Amt Medium (34-66%) -Granulation Quality [place] -Slough/Fibrin Yes -Necrosis Amt Small (1-33%) -Necrotic Tissue Type Adherent Slough -Structure Exposed N/A -Texture (Alexus-wound Skin Appearance) Assessed -Moisture (Alexus-wound Skin Appearance Assessed ) -Color (Alexus-wound Skin Appearance) Assessed -Temperature (Alexus-wound Skin No Abnormality Appearance) (Pt Warm) -Tenderness on Palpation (Alexus-wound No Skin Appearance) -Ulcer Cleansing Wound Cleanser -Foul Odor after Cleansing No -Anesthetic Used 4% Lidocaine Solution WC - Nurse 2 - General Ulcer CM Notes Start: 06/01/20 12:47 Freq: Status: Active Protocol: Activity Type Activity Date Activity User E-Sign Co-Sign Detail Recorded Client Recorded Date Recorded By Document 06/01/20 13:13 MW [id number] 06/01/20 13:15 MW 06/01/20 13:13 Wound Center Nurse 2 [Procedure/Treatment] -Time 13:14 -Correct Patient Yes -Correct Side, Site, Position Yes -Correct Procedure Yes -Procedure Performed Yes -Type of Procedure Debridement -Clinical Debridement Subcutaneous -Post Debridement Size (cm) - Length 1.4 -Post Debridement Size (cm) - Width 1.5 -Post Debridement Size (cm) - Depth 0.6 -Total Square Cm 2.10 -Wound/Ulcer Outcome Not Healed -Ulcer Cleansing Rinsed/ Irrigated with Saline -Foul Odor after Cleansing No -Bioengineered Tissue No -Bleeding Controlled with Pressure -Offloading No -Treatment Response Procedure Tolerated Well [See Physician Procedure note for Specifics] Pain Scale: 0-10 Numeric [Pain] -Is Patient Pain Free? Yes Neurological: Neuro grossly intact Psych/Mental Status: Normal Affect, Appropriate, Alert and oriented to time, place, person, mood and affect Debridement Note Post-Debridement Measurements/Treatment WC - Nurse 2 - General Ulcer CM Notes Start: 06/01/20 12:47 Freq: Status: Active Protocol: Activity Type Activity Date Activity User E-Sign Co-Sign Detail Recorded Client Recorded Date Recorded By Document 06/01/20 13:13 MW [id number] 06/01/20 13:15 MW 06/01/20 13:13 Wound Center Nurse 2 #4 Sacrum -Time 13:14 -Correct Patient Yes -Correct Side, Site, Position Yes -Correct Procedure Yes -Procedure Performed Yes -Type of Procedure Debridement -Clinical Debridement Subcutaneous -Post Debridement Size (cm) - Length 1.4 -Post Debridement Size (cm) - Width 1.5 -Post Debridement Size (cm) - Depth 0.6 -Total Square Cm 2.10 -Wound/Ulcer Outcome Not Healed -Ulcer Cleansing Rinsed/ Irrigated with Saline -Foul Odor after Cleansing No -Bioengineered Tissue No -Bleeding Controlled with Pressure -Offloading No -Treatment Response Procedure Tolerated Well Pain Scale: 0-10 Numeric Is Patient Pain Free? Yes Wound debrided: Stage 3 pressure ulcer of coccyx Type of Debridement: Excisional debridement Anesthesia Used: 5% Lidocaine Gel Depth: in the subcutaneous layer Percentage of wound debrided: 100 Instrument Used: 5mm curette Tissue Removed: Slough and devitalized tissue Severity: Fat Layer Exposed Amount of bleeding with debridement: Mild Bleeding Controlled with: Pressure Patient tolerated procedure well Assessment/Plan Active Problems Stage III pressure ulcer (Chronic) coccyx Malnutrition (Acute) Assessment: See above diagnoses Plan: Debridement done as documented above, procedure was well-tolerated. Continue Paola and OptiForm. Continue offloading, increased protein intake and exercise as tolerated. Their questions were answered and they were advised to call with any further questions or concerns. Follow-up in a month. This note was generated with [employer] software. It may contain incorrect words, spelling, and punctuation that were not noted in checking the note before signing. [id number]: [id number] Angie subq tissue 20 sq cm/<
== END 2020-06-16 23:59 ==
LOC: WC 09:21
PROVIDERS: PCP Family Medicine; Visit Provider Internal Medicine
DX: L89.153 Pressure ulcer of sacral region, stage 3 (principal); E78.5 Hyperlipidemia, unspecified; I10 Essential (primary) hypertension; M16.0 Bilateral primary osteoarthritis of hip; M81.0 Age-related osteoporosis without current pathological fracture
CPT/HCPCS: 11042

== ENCOUNTER 2020-06-29 12:35 | Outpatient (RCR) | payer MEDICARE, OTHER, SELFPAY ==
[2020-06-17 00:30] VITALS: BP 104/43; PULSE 65; RESP 18; TEMP 37
[2020-06-29 13:33] VITALS: BP 108/40; PULSE 70; RESP 18; TEMP 36.5; BMI 17.7
--- NOTE | 2020-06-29 20:41 | PN.PCM_ITS ---
(1) Stage III pressure ulcer Status: Chronic Qualifiers: Code(s): L89.93 - Pressure ulcer of unspecified site, stage 3 Comment: coccyx (2) Malnutrition Status: Acute Code(s): E46 - Unspecified protein-calorie malnutrition (3) Amputation of left lower extremity Status: Chronic Qualifiers: Code(s): S88.912A - Complete traumatic amputation of left lower leg, level unspecified, initial encounter (4) Hyperlipidemia Status: Chronic Code(s): E78.5 - Hyperlipidemia, unspecified (5) Hypertension Status: Chronic Code(s): I10 - Essential (primary) hypertension (6) Hypothyroidism Status: Chronic Code(s): E03.9 - Hypothyroidism, unspecified (7) Immobility Status: Chronic Code(s): Z74.09 - Other reduced mobility Type of Wound Date of Service: 06/29/20 Chief Complaint: 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 She is currently on a complex wound care plan. She has had multiple wound care failures. Last seen here about 4 weeks ago, comes in monthly. They have been applying Paola with OptiForm over top daily to twice daily depending on drainage/contamination. No acute concerns at this time. She denies chills, fever otherwise feeling of unwell. Progress of Wound: No new concerns at this time. - Physical Exam Vital Signs Temp Pulse Resp BP 97.7 F L 70 18 108/40 L 06/29/20 13:33 06/29/20 13:33 06/29/20 13:33 06/29/20 13:33 General: Alert, Oriented x3, Cooperative, No apparent distress HEENT: Atraumatic Lungs: Clear to auscultation, Normal air movement Cardiovascular: Regular rate, Regular Rhythm Extremities: No clubbing, No cyanosis, - - left BKA Skin: Ulcer/ Wound - see nursing documentation, slough and devitalized tissue, no signs of infection Neurological: Neuro grossly intact Psych/Mental Status: Normal Affect, Appropriate, Alert and oriented to time, place, person, mood and affect Debridement Note Post-Debridement Measurements/Treatment WC - Nurse 2 - General Ulcer CM Notes Start: 06/29/20 13:33 Freq: Status: Active Protocol: Activity Type Activity Date Activity User E-Sign Co-Sign Detail Recorded Client Recorded Date Recorded By Document 06/29/20 13:59 MW [id number] 06/29/20 14:02 MW 06/29/20 13:59 Wound Center Nurse 2 #4 Sacrum -Time 14:00 -Correct Patient Yes -Correct Side, Site, Position Yes -Correct Procedure Yes -Procedure Performed Yes -Type of Procedure Debridement -Clinical Debridement Subcutaneous -Post Debridement Size (cm) - Length 1.5 -Post Debridement Size (cm) - Width 1.5 -Post Debridement Size (cm) - Depth 0.7 -Total Square (cm) 2.25 -Wound/Ulcer Outcome Not Healed -Ulcer Cleansing Rinsed/ Irrigated with Saline -Foul Odor after Cleansing No -Bioengineered Tissue No -Bleeding Controlled with Pressure -Offloading No -Treatment Response Procedure Tolerated Well Pain Scale: 0-10 Numeric Is Patient Pain Free? Yes Wound debrided: stage 3 pressure ulcer coccyx Type of Debridement: Excisional debridement Anesthesia Used: 5% Lidocaine Gel Depth: in the subcutaneous layer Percentage of wound debrided: 100 Instrument Used: 5mm curette Tissue Removed: slough and devitalized tissue Severity: Fat Layer Exposed Amount of bleeding with debridement: Mild Bleeding Controlled with: Pressure Patient tolerated procedure well Assessment/Plan Assessment: See above diagnoses Plan: Debridement done as documented above, procedure was well-tolerated. Continue Paola and OptiFoam. Continue offloading, increased protein intake and exercise as tolerated. Their questions were answered and they were advised to call with any further questions or concerns. Continue with palliative wound care. Follow-up in a month. This note was generated with [employer] dictation software. It may contain incorrect words, spelling, and punctuation that were not noted in checking the note before signing. [id number]: [id number] Angie subq tissue 20 sq cm/<
== END 2020-07-17 23:59 ==
LOC: WC 12:35
PROVIDERS: PCP Family Medicine; Referring Provider Internal Medicine; Visit Provider Internal Medicine
DX: L89.153 Pressure ulcer of sacral region, stage 3 (principal); I10 Essential (primary) hypertension; E78.5 Hyperlipidemia, unspecified; E03.9 Hypothyroidism, unspecified; Z74.09 Other reduced mobility; Z79.01 Long term (current) use of anticoagulants; Z79.899 Other long term (current) drug therapy; Z89.512 Acquired absence of left leg below knee
CPT/HCPCS: 11042

== ENCOUNTER 2020-07-27 13:09 | Outpatient (RCR) | payer MEDICARE, OTHER, SELFPAY ==
[2020-07-18 00:34] VITALS: BP 108/40; PULSE 70; RESP 18; TEMP 36.5
[2020-07-27 13:44] VITALS: BP 116/46; PULSE 72; RESP 18; TEMP 36.8; BMI 17.7
--- NOTE | 2020-07-27 16:15 | PCM.WC.PN ---
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 She is currently on a complex wound care plan. She has had multiple wound care failures. Last seen here about 4 weeks ago, comes in monthly. They have been applying Paola with OptiForm over top daily to twice daily depending on drainage/contamination. No acute concerns at this time. She denies chills, fever otherwise feeling of unwell. Progress of Wound: No new concerns at this time. - Physical Exam Vital Signs Temp Pulse Resp BP 98.2 F 72 18 116/46 L 07/27/20 13:44 07/27/20 13:44 07/27/20 13:44 07/27/20 13:44 General: Alert, Oriented x3, Cooperative, No apparent distress HEENT: Atraumatic Oral: Moist Mucosa Lungs: Clear to auscultation, Normal air movement Cardiovascular: Regular rate, Regular Rhythm, Normal S1, Normal S2 Abdomen: Soft, Non Tender Extremities: No clubbing, No cyanosis Skin: Ulcer/ Wound - see nursing documentation, slough and devitalized tissue , no signs of infection at this time Wound Measurements and Assessment WC - Nurse 1 - General Ulcer Measurement Start: 07/27/20 13:44 Freq: Status: Active Protocol: Activity Type Activity Date Activity User E-Sign Co-Sign Detail Recorded Client Recorded Date Recorded By Document 07/27/20 13:44 MT [id number] 07/27/20 13:55 MT 07/27/20 13:44 Wound Center Nurse 1 [Ulcer Assessment] #4 Sacrum -Current Size (cm) - Length 1.7 -Current Size (cm) - Width 1.1 -Current Size (cm) - Depth 0.3 -Total Square Cm 1.87 -Exudate Amt Small -Exudate Type Serosanguineous -Wound Margin Flat & Intact -Granulation Amt Large (67-100%) -Granulation Quality [place] -Slough/Fibrin No -Texture (Alexus-wound Skin Appearance) Assessed -Moisture (Alexus-wound Skin Appearance Assessed ) -Color (Alexus-wound Skin Appearance) Assessed -Temperature (Alexus-wound Skin No Abnormality Appearance) (Pt Warm) -Tenderness on Palpation (Alexus-wound No Skin Appearance) -Ulcer Cleansing Rinsed/ Irrigated with Saline -Foul Odor after Cleansing No -Anesthetic Used 4% Lidocaine Solution [Edema Assessment] -Lower Limb Edema Present NA - Nurse 2 - General Ulcer CM Notes Start: 07/27/20 13:44 Freq: Status: Active Protocol: Activity Type Activity Date Activity User E-Sign Co-Sign Detail Recorded Client Recorded Date Recorded By Document 07/27/20 14:08 MW [id number] 07/27/20 14:11 MW 07/27/20 14:08 Wound Center Nurse 2 [Procedure/Treatment] #4 Sacrum -Time 14:10 -Correct Patient Yes -Correct Side, Site, Position Yes -Correct Procedure Yes -Procedure Performed Yes -Type of Procedure Debridement -Clinical Debridement Subcutaneous -Tissue Removed Subcutaneous -Post Debridement (cm) - Length 1.6 -Post Debridement (cm) - Width 1.5 -Post Debridement (cm) - Depth 0.5 -Total Square (Post) (cm) 2.40 -Area of Debridement (cm) - Length 1.6 -Area of Debridement (cm) - Width 1.5 -Total Square (Area) (cm) 2.40 -Tunneling No -Undermining/Tunneling No -Circular Undermining No -Wound/Ulcer Outcome Not Healed -Ulcer Cleansing Rinsed/ Irrigated with Saline -Foul Odor after Cleansing No -Bioengineered Tissue No -Bleeding Controlled with Pressure -Offloading No -Debridement - Subq, 1st 20sq cm Yes [See Physician Procedure note for Specifics] Pain Scale: 0-10 Numeric [Pain] -Is Patient Pain Free? Yes - Nurse 3 - General Ulcer D/C NN Start: 07/27/20 13:44 Freq: Status: Active Protocol: Activity Type Activity Date Activity User E-Sign Co-Sign Detail Recorded Client Recorded Date Recorded By Document 07/27/20 14:24 [facility] [id number] 07/27/20 14:25 [facility] 07/27/20 14:24 Wound Care Nurse 3 [Wound Dressing] #4 Sacrum -Ulcer Cleansing Rinsed/ Irrigated with Saline -Foul Odor after Cleansing No -Primary Dressing Applied Mepilex Border, Promogran Paola Matter -Mepilex Border 1 -Promogran Paola Matter 1 [Post Procedure Tolerated] -Treatment Response Procedure Tolerated Well Pain Scale: 0-10 Numeric [Pain] -Is Patient Pain Free? Yes - Visit Discharge [Visit Discharge Information] -Discharge Condition Stable -Ambulatory Status Wheelchair -Transportation don transit Neurological: Neuro grossly intact Psych/Mental Status: Normal Affect, Appropriate, Alert and oriented to time, place, person, mood and affect Debridement Note Post-Debridement Measurements/Treatment ROMI - Nurse 2 - General Ulcer CM Notes Start: 07/27/20 13:44 Freq: Status: Active Protocol: Activity Type Activity Date Activity User E-Sign Co-Sign Detail Recorded Client Recorded Date Recorded By Document 07/27/20 14:08 [id number] 07/27/20 14:11 MW 07/27/20 14:08 Wound Center Nurse 2 #4 Sacrum -Time 14:10 -Correct Patient Yes -Correct Side, Site, Position Yes -Correct Procedure Yes -Procedure Performed Yes -Type of Procedure Debridement -Clinical Debridement Subcutaneous -Tissue Removed Subcutaneous -Post Debridement (cm) - Length 1.6 -Post Debridement (cm) - Width 1.5 -Post Debridement (cm) - Depth 0.5 -Total Square (Post) (cm) 2.40 -Area of Debridement (cm) - Length 1.6 -Area of Debridement (cm) - Width 1.5 -Total Square (Area) (cm) 2.40 -Tunneling No -Undermining/Tunneling No -Circular Undermining No -Wound/Ulcer Outcome Not Healed -Ulcer Cleansing Rinsed/ Irrigated with Saline -Foul Odor after Cleansing No -Bioengineered Tissue No -Bleeding Controlled with Pressure -Offloading No -Debridement - Subq, 1st 20sq cm Yes Pain Scale: 0-10 Numeric Is Patient Pain Free? Yes - Nurse 3 - General Ulcer D/C NN Start: 07/27/20 13:44 Freq: Status: Active Protocol: Activity Type Activity Date Activity User E-Sign Co-Sign Detail Recorded Client Recorded Date Recorded By Document 07/27/20 14:24 [facility] [id number] 07/27/20 14:25 [facility] 07/27/20 14:24 Wound Care Nurse 3 #4 Sacrum -Ulcer Cleansing Rinsed/ Irrigated with Saline -Foul Odor after Cleansing No -Primary Dressing Applied Mepilex Border, Promogran Paola Matter -Mepilex Border 1 -Promogran Paola Matter 1 Treatment Response Procedure Tolerated Well Pain Scale: 0-10 Numeric Is Patient Pain Free? Yes WC - Visit Discharge Discharge Condition Stable Ambulatory Status Wheelchair Transportation don transit Wound debrided: Stage III pressure injury of coccyx Type of Debridement: Excisional debridement Anesthesia Used: 5% Lidocaine Gel Depth: in the subcutaneous layer Percentage of wound debrided: 100 Instrument Used: 5mm curette Tissue Removed: Slough and devitalized tissue Severity: Fat Layer Exposed Amount of bleeding with debridement: Mild Bleeding Controlled with: Pressure Patient tolerated procedure well Assessment/Plan Active Problems Stage III pressure ulcer (Chronic) coccyx Amputation of left lower extremity (Chronic) Immobility (Chronic) Malnutrition (Acute) Assessment: See above diagnoses Plan: Debridement done as documented above, procedure was well-tolerated. Continue Paola and OptiFoam. Continue offloading, increased protein intake and exercise as tolerated. Their questions were answered and they were advised to call with any further questions or concerns. Continue with palliative wound care. Follow-up in a month. This note was generated with [employer] software. It may contain incorrect words, spelling, and punctuation that were not noted in checking the note before signing. [id number]: [id number] Angie subq tissue 20 sq cm/<
== END 2020-08-16 23:59 ==
LOC: WC 13:09
PROVIDERS: PCP Family Medicine; Referring Provider Internal Medicine; Visit Provider Internal Medicine
DX: L89.153 Pressure ulcer of sacral region, stage 3 (principal); I10 Essential (primary) hypertension; M16.0 Bilateral primary osteoarthritis of hip; Z79.01 Long term (current) use of anticoagulants; Z79.899 Other long term (current) drug therapy; Z89.612 Acquired absence of left leg above knee
CPT/HCPCS: 11042

== ENCOUNTER 2020-08-24 12:51 | Outpatient (RCR) | payer MEDICARE, OTHER, SELFPAY ==
[2020-08-17 00:31] VITALS: BP 116/46; PULSE 72; RESP 18; TEMP 36.8
[2020-08-24 13:13] VITALS: BP 128/58; PULSE 81; RESP 18; TEMP 36.4; BMI 17.7
--- NOTE | 2020-08-24 16:13 | PN.PCM_ITS ---
(1) Stage III pressure ulcer Status: Chronic Current Visit: Yes Qualifiers: Code(s): L89.93 - Pressure ulcer of unspecified site, stage 3 Comment: coccyx (2) Malnutrition Status: Acute Current Visit: No Code(s): E46 - Unspecified protein-calorie malnutrition (3) Amputation of left lower extremity Status: Chronic Current Visit: No Qualifiers: Code(s): S88.912A - Complete traumatic amputation of left lower leg, level unspecified, initial encounter (4) Hypertension Status: Chronic Current Visit: No Code(s): I10 - Essential (primary) hypertension (5) Hypothyroidism Status: Chronic Current Visit: No Code(s): E03.9 - Hypothyroidism, unspecified (6) Immobility Status: Chronic Current Visit: No Code(s): Z74.09 - Other reduced mobility (7) Osteoarthritis of hips, bilateral Status: Chronic Current Visit: No Code(s): M16.0 - Bilateral primary osteoarthritis of hip Type of Wound Date of Service: 08/24/20 Chief Complaint: 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 She is currently on a complex wound care plan. She has had multiple wound care failures. Last seen here about 4 weeks ago, comes in monthly. They have been applying [place] with OptiForm over top daily to twice daily depending on drainage/contamination. No acute concerns at this time. She denies chills, fever otherwise feeling of unwell. Progress of Wound: No new concerns at this time, will change wound care to Aquacell silver change daily. Patient has had increasing pain and therefore wound cultures were collected today as well. - Physical Exam Vital Signs Temp Pulse Resp BP 97.6 F L 81 18 128/58 H 08/24/20 13:13 08/24/20 13:13 08/24/20 13:13 08/24/20 13:13 General: Alert, Oriented x3, Cooperative, No apparent distress HEENT: Atraumatic Oral: Moist Mucosa Lungs: Clear to auscultation, Normal air movement Cardiovascular: Regular rate, Regular Rhythm Abdomen: Soft, Non Tender Extremities: No clubbing, No cyanosis, No edema Skin: Ulcer/ Wound - see Nursing documentation, slough and devitalized tissue present no signs of obvious infection at this time Wound Measurements and Assessment - Nurse 1 - General Ulcer Measurement Start: 08/24/20 13:13 Freq: Status: Active Protocol: Activity Type Activity Date Activity User E-Sign Co-Sign Detail Recorded Client Recorded Date Recorded By Document 08/24/20 13:13 RB [id number] 08/24/20 13:14 RB 08/24/20 13:13 Wound Center Nurse 1 [Ulcer Assessment] #4 Sacrum -Combined with other wound No -Current Size (cm) - Length 1.3 -Current Size (cm) - Width 0.8 -Current Size (cm) - Depth 0.6 -Total Square Cm 1.04 -Tunneling No -Undermining/Tunneling No -Circular Undermining No -Exudate Amt Medium -Exudate Type Serosanguineous -Wound Margin Thickened & Rolled Under -Granulation Amt Medium (34-66%) -Granulation Quality [place] -Slough/Fibrin Yes -Necrosis Amt Small (1-33%) -Necrotic Tissue Type Adherent Slough -Structure Exposed N/A -Texture (Alexus-wound Skin Appearance) Assessed -Moisture (Alexus-wound Skin Appearance Assessed ) -Color (Alexus-wound Skin Appearance) Assessed -Temperature (Alexus-wound Skin No Abnormality Appearance) (Pt Warm) -Tenderness on Palpation (Alexus-wound No Skin Appearance) -Ulcer Cleansing Wound Cleanser -Foul Odor after Cleansing No -Anesthetic Used 4% Lidocaine Solution WC - Nurse 2 - General Ulcer CM Notes Start: 08/24/20 13:13 Freq: Status: Active Protocol: Activity Type Activity Date Activity User E-Sign Co-Sign Detail Recorded Client Recorded Date Recorded By Document 08/24/20 13:25 MW [id number] 08/24/20 13:31 MW 08/24/20 13:25 Wound Center Nurse 2 [Procedure/Treatment] -Time 13:31 -Correct Patient Yes -Correct Side, Site, Position Yes -Correct Procedure Yes -Procedure Performed Yes -Type of Procedure Debridement -Clinical Debridement Subcutaneous -Tissue Removed Subcutaneous -Post Debridement (cm) - Length 1.5 -Post Debridement (cm) - Width 1.0 -Post Debridement (cm) - Depth 0.7 -Total Square (Post) (cm) 1.50 -Area of Debridement (cm) - Length 1.5 -Area of Debridement (cm) - Width 1.0 -Total Square (Area) (cm) 1.50 -Tunneling No -Undermining/Tunneling No -Circular Undermining No -Wound/Ulcer Outcome Not Healed -Ulcer Cleansing Rinsed/ Irrigated with Saline -Foul Odor after Cleansing No -Bioengineered Tissue No -Bleeding Controlled with Pressure -Offloading No -Treatment Response Procedure Tolerated Well -Debridement - Subq, 1st 20sq cm Yes [See Physician Procedure note for Specifics] Pain Scale: 0-10 Numeric [Pain] -Is Patient Pain Free? Yes - Nurse 3 - General Ulcer D/C NN Start: 08/24/20 13:13 Freq: Status: Active Protocol: Activity Type Activity Date Activity User E-Sign Co-Sign Detail Recorded Client Recorded Date Recorded By Document 08/24/20 13:43 [facility] [id number] 08/24/20 13:44 [facility] 08/24/20 13:43 Wound Care Nurse 3 [Wound Dressing] #4 Sacrum -Ulcer Cleansing Rinsed/ Irrigated with Saline -Foul Odor after Cleansing No -Primary Dressing Applied Aquacel AG 4x4, Mepilex Border -Primary Dressing Covered/Secured Secured with with Tape -Aquacel AG 4x4 1 -Mepilex Border 1 [Post Procedure Tolerated] -Treatment Response Procedure Tolerated Well Vital Signs [Comments] -Comment PT REFUSED V/S. Pain Scale: 0-10 Numeric [Pain] -Is Patient Pain Free? Yes - Visit Discharge [Visit Discharge Information] -Discharge Condition Stable -Ambulatory Status Wheelchair -Transportation Private Auto -Accompanied by DAUGHTER Neurological: Neuro grossly intact Psych/Mental Status: Normal Affect, Appropriate, Alert and oriented to time, place, person, mood and affect Debridement Note Post-Debridement Measurements/Treatment - Nurse 2 - General Ulcer CM Notes Start: 08/24/20 13:13 Freq: Status: Active Protocol: Activity Type Activity Date Activity User E-Sign Co-Sign Detail Recorded Client Recorded Date Recorded By Document 08/24/20 13:25 [id number] 08/24/20 13:31 MW 08/24/20 13:25 Wound Center Nurse 2 #4 Sacrum -Time 13:31 -Correct Patient Yes -Correct Side, Site, Position Yes -Correct Procedure Yes -Procedure Performed Yes -Type of Procedure Debridement -Clinical Debridement Subcutaneous -Tissue Removed Subcutaneous -Post Debridement (cm) - Length 1.5 -Post Debridement (cm) - Width 1.0 -Post Debridement (cm) - Depth 0.7 -Total Square (Post) (cm) 1.50 -Area of Debridement (cm) - Length 1.5 -Area of Debridement (cm) - Width 1.0 -Total Square (Area) (cm) 1.50 -Tunneling No -Undermining/Tunneling No -Circular Undermining No -Wound/Ulcer Outcome Not Healed -Ulcer Cleansing Rinsed/ Irrigated with Saline -Foul Odor after Cleansing No -Bioengineered Tissue No -Bleeding Controlled with Pressure -Offloading No -Treatment Response Procedure Tolerated Well -Debridement - Subq, 1st 20sq cm Yes Pain Scale: 0-10 Numeric Is Patient Pain Free? Yes - Nurse 3 - General Ulcer D/C NN Start: 08/24/20 13:13 Freq: Status: Active Protocol: Activity Type Activity Date Activity User E-Sign Co-Sign Detail Recorded Client Recorded Date Recorded By Document 08/24/20 13:43 [facility] [id number] 08/24/20 13:44 [facility] 08/24/20 13:43 Wound Care Nurse 3 #4 Sacrum -Ulcer Cleansing Rinsed/ Irrigated with Saline -Foul Odor after Cleansing No -Primary Dressing Applied Aquacel AG 4x4, Mepilex Border -Primary Dressing Covered/Secured with Secured with Tape -Aquacel AG 4x4 1 -Mepilex Border 1 Treatment Response Procedure Tolerated Well Vital Signs Comment PT REFUSED V/S. Pain Scale: 0-10 Numeric Is Patient Pain Free? Yes - Visit Discharge Discharge Condition Stable Ambulatory Status Wheelchair Transportation Private Auto Accompanied by DAUGHTER Wound debrided: Stage III pressure ulcer of coccyx Type of Debridement: Excisional debridement Anesthesia Used: 5% Lidocaine Gel Depth: in the subcutaneous layer Percentage of wound debrided: 100 Instrument Used: 5mm curette Tissue Removed: slough And devitalized tissue Severity: Fat Layer Exposed Amount of bleeding with debridement: Mild Bleeding Controlled with: Pressure Patient tolerated procedure well Assessment/Plan Active Problems Stage III pressure ulcer (Chronic) coccyx Assessment: See above diagnoses Plan: Debridement done as documented above, procedure was well-tolerated. dressing changes of Aquacel silver moistened change daily and OptiFoam. Continue offloading, increased protein intake and exercise as tolerated. Their questions were answered and they were advised to call with any further questions or concerns. Continue with palliative wound care. Follow-up in a month. This note was generated with [employer] dictation software. It may contain incorrect words, spelling, and punctuation that were not noted in checking the note before signing. [id number]: [id number] Angie subq tissue 20 sq cm/<
== END 2020-09-16 23:59 ==
LOC: WC 12:51
PROVIDERS: PCP Family Medicine; Referring Provider Internal Medicine; Visit Provider Internal Medicine
DX: L89.153 Pressure ulcer of sacral region, stage 3 (principal); I10 Essential (primary) hypertension; Z89.612 Acquired absence of left leg above knee; M16.0 Bilateral primary osteoarthritis of hip
CPT/HCPCS: 11042; 87070; 87075; 87077; 87186; 87205

== ENCOUNTER 2020-09-21 13:00 | Outpatient (RCR) | payer MEDICARE, OTHER, SELFPAY ==
[2020-09-17 00:20] VITALS: BP 128/58; PULSE 81; RESP 18; TEMP 36.4
[2020-09-21 12:51] VITALS: BP 130/58; PULSE 79; RESP 16; TEMP 36.7; BMI 17.7
--- NOTE | 2020-09-21 13:15 | PN.PCM_ITS ---
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 She is currently on a complex wound care plan. She has had multiple wound care failures. Last seen here about 4 weeks ago, comes in monthly. They have been applying Moistened Silvercell with OptiForm over top daily to twice daily depending on drainage/contamination. Wound culture from 08/24/20 postive for Staphylococcus simulans, Anaerobic cocci and Prevotella oralis. She was treated with Flagyl. Patient states that ulcer is less painful and her daughter states it is not as red as it was. No acute concerns at this time. She denies chills, fever otherwise feeling of unwell. Progress of Wound: Ulcer not red or as painful as it was at her last appointment. - Physical Exam Vital Signs Temp Pulse Resp BP 98.0 F 79 16 130/58 H 09/21/20 12:51 09/21/20 12:51 09/21/20 12:51 09/21/20 12:51 General: Alert, Cooperative HEENT: Atraumatic Oral: Moist Mucosa Lungs: Normal air movement Cardiovascular: Regular rate Extremities: Capillary Refill Less than 3 Seconds Skin: Ulcer/ Wound - Coccyx ulcer is beefy pink. No redness, irritation or odor. Wound Measurements and Assessment WC - Nurse 1 - General Ulcer Measurement Start: 09/21/20 12:47 Freq: Status: Active Protocol: Activity Type Activity Date Activity User E-Sign Co-Sign Detail Recorded Client Recorded Date Recorded By Document 09/21/20 12:51 MS [id number] 09/21/20 12:58 MS 09/21/20 12:51 Wound Center Nurse 1 [Ulcer Assessment] #4 Sacrum -Current Size (cm) - Length 2 -Current Size (cm) - Width 0.8 -Current Size (cm) - Depth 0.3 -Total Square Cm 1.6 -Epithelialization Medium 34-66% -Exudate Amt Medium -Exudate Type Serosanguineous -Wound Margin Distinct, Outline Attached -Granulation Amt Medium (34-66%) -Slough/Fibrin Yes -Necrosis Amt Small (1-33%) -Texture (Alexus-wound Skin Appearance) Assessed -Moisture (Alexus-wound Skin Appearance Assessed ) -Temperature (Alexus-wound Skin No Abnormality Appearance) (Pt Warm) -Tenderness on Palpation (Alexus-wound No Skin Appearance) -Ulcer Cleansing Rinsed/ Irrigated with Saline -Foul Odor after Cleansing No -Anesthetic Used 5% Lidocaine Gel WC - Nurse 2 - General Ulcer CM Notes Start: 09/21/20 12:47 Freq: Status: Active Protocol: Activity Type Activity Date Activity User E-Sign Co-Sign Detail Recorded Client Recorded Date Recorded By Document 09/21/20 13:10 MW [id number] 09/21/20 13:12 MW 09/21/20 13:10 Wound Center Nurse 2 [Procedure/Treatment] -Time 13:11 -Correct Patient Yes -Correct Side, Site, Position Yes -Correct Procedure Yes -Procedure Performed Yes -Type of Procedure Debridement -Clinical Debridement Subcutaneous -Tissue Removed Subcutaneous -Post Debridement (cm) - Length 2.0 -Post Debridement (cm) - Width 1.7 -Post Debridement (cm) - Depth 0.9 -Total Square (Post) (cm) 3.40 -Area of Debridement (cm) - Length 2.0 -Area of Debridement (cm) - Width 1.7 -Total Square (Area) (cm) 3.40 -Tunneling No -Undermining/Tunneling No -Circular Undermining No -Wound/Ulcer Outcome Not Healed -Ulcer Cleansing Rinsed/ Irrigated with Saline -Foul Odor after Cleansing No -Bioengineered Tissue No -Bleeding Controlled with Pressure -Offloading No -Debridement - Subq, 1st 20sq cm Yes [See Physician Procedure note for Specifics] Pain Scale: 0-10 Numeric [Pain] -Is Patient Pain Free? Yes ROMI - Nurse 3 - General Ulcer D/C NN Start: 09/21/20 12:47 Freq: Status: Active Protocol: Activity Type Activity Date Activity User E-Sign Co-Sign Detail Recorded Client Recorded Date Recorded By Document 09/21/20 13:37 DL [id number] 09/21/20 13:38 DL 09/21/20 13:37 Wound Care Nurse 3 [Wound Dressing] #4 Sacrum -Ulcer Cleansing Wound Cleanser -Foul Odor after Cleansing No -Primary Dressing Applied Aquacel AG 4x4, Mepilex Border -Aquacel AG 4x4 1 -Mepilex Border 1 [Post Procedure Tolerated] -Treatment Response Procedure Tolerated Well Pain Scale: 0-10 Numeric [Pain] -Is Patient Pain Free? Yes WC - Visit Discharge [Visit Discharge Information] -Discharge Condition Stable -Ambulatory Status Wheelchair -Accompanied by daughter Musculoskeletal: No Tenderness to Palpation of Joints or Extremities Neurological: Cranial nerves II-XII grossly intact Psych/Mental Status: Normal Affect Debridement Note Post-Debridement Measurements/Treatment WC - Nurse 2 - General Ulcer CM Notes Start: 09/21/20 12:47 Freq: Status: Active Protocol: Activity Type Activity Date Activity User E-Sign Co-Sign Detail Recorded Client Recorded Date Recorded By Document 09/21/20 13:10 MW [id number] 09/21/20 13:12 MW 09/21/20 13:10 Wound Center Nurse 2 #4 Sacrum -Time 13:11 -Correct Patient Yes -Correct Side, Site, Position Yes -Correct Procedure Yes -Procedure Performed Yes -Type of Procedure Debridement -Clinical Debridement Subcutaneous -Tissue Removed Subcutaneous -Post Debridement (cm) - Length 2.0 -Post Debridement (cm) - Width 1.7 -Post Debridement (cm) - Depth 0.9 -Total Square (Post) (cm) 3.40 -Area of Debridement (cm) - Length 2.0 -Area of Debridement (cm) - Width 1.7 -Total Square (Area) (cm) 3.40 -Tunneling No -Undermining/Tunneling No -Circular Undermining No -Wound/Ulcer Outcome Not Healed -Ulcer Cleansing Rinsed/ Irrigated with Saline -Foul Odor after Cleansing No -Bioengineered Tissue No -Bleeding Controlled with Pressure -Offloading No -Debridement - Subq, 1st 20sq cm Yes Pain Scale: 0-10 Numeric Is Patient Pain Free? Yes WC - Nurse 3 - General Ulcer D/C NN Start: 11/05/20 12:47 Freq: Status: Active Protocol: Activity Type Activity Date Activity User E-Sign Co-Sign Detail Recorded Client Recorded Date Recorded By Document 09/21/20 13:37 DL [id number] 09/21/20 13:38 DL 09/21/20 13:37 Wound Care Nurse 3 #4 Sacrum -Ulcer Cleansing Wound Cleanser -Foul Odor after Cleansing No -Primary Dressing Applied Aquacel AG 4x4, Mepilex Border -Aquacel AG 4x4 1 -Mepilex Border 1 Treatment Response Procedure Tolerated Well Pain Scale: 0-10 Numeric Is Patient Pain Free? Yes WC - Visit Discharge Discharge Condition Stable Ambulatory Status Wheelchair Accompanied by daughter Wound debrided: Coccyx ulcer Type of Debridement: Excisional debridement Anesthesia Used: 5% Lidocaine Gel Depth: Down to and including healthy tissue, in the subcutaneous layer Percentage of wound debrided: 100 Instrument Used: 5mm curette Tissue Removed: Subcutaneous tissue and slough Severity: Fat Layer Exposed Amount of bleeding with debridement: Mild Bleeding Controlled with: Pressure Patient tolerated procedure well Assessment/Plan Active Problems Stage III pressure ulcer (Chronic) coccyx Amputation of left lower extremity (Chronic) Immobility (Chronic) Malnutrition (Chronic) Assessment: See above diagnoses Plan: Debridement done as documented above, procedure was well-tolerated. Dressing changes of Aquacel silver moistened change daily and OptiFoam. Continue offloading, increased protein intake and exercise as tolerated. Their questions were answered and they were advised to call with any further questions or concerns. Continue with palliative wound care. Follow-up in a month. This note was generated with [employer] dictation software. It may contain incorrect words, spelling, and punctuation that were not noted in checking the note before signing. [id number]: [id number] Angie subq tissue 20 sq cm/<
== END 2020-10-16 23:59 ==
LOC: WC 13:00
PROVIDERS: PCP Family Medicine; Referring Provider Internal Medicine; Visit Provider Internal Medicine
DX: L89.153 Pressure ulcer of sacral region, stage 3 (principal); Z89.612 Acquired absence of left leg above knee
CPT/HCPCS: 11042

== ENCOUNTER 2020-10-19 13:00 | Outpatient (RCR) | payer MEDICARE, OTHER, SELFPAY ==
[2020-10-17 00:21] VITALS: BP 130/58; PULSE 79; RESP 16; TEMP 36.7
[2020-10-19 13:01] VITALS: BP 120/51; PULSE 74; RESP 16; TEMP 36.4; BMI 17.7
[2020-10-19 13:59] VITALS: BP 118/56
--- NOTE | 2020-10-19 15:44 | PCM.WC.PN ---
(1) Stage III pressure ulcer Status: Chronic Qualifiers: Code(s): L89.93 - Pressure ulcer of unspecified site, stage 3 Comment: coccyx (2) Anemia Status: Acute Code(s): D64.9 - Anemia, unspecified (3) Amputation of left lower extremity Status: Chronic Qualifiers: Code(s): S88.912A - Complete traumatic amputation of left lower leg, level unspecified, initial encounter (4) Hyperlipidemia Status: Chronic Code(s): E78.5 - Hyperlipidemia, unspecified (5) Immobility Status: Chronic Code(s): Z74.09 - Other reduced mobility (6) Malnutrition Status: Chronic Code(s): E46 - Unspecified protein-calorie malnutrition (7) Osteoarthritis of hips, bilateral Status: Chronic Code(s): M16.0 - Bilateral primary osteoarthritis of hip (8) Osteoporosis Status: Chronic Code(s): M81.0 - Age-related osteoporosis without current pathological fracture Type of Wound Date of Service: 10/19/20 Chief Complaint: 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 She is currently on a complex wound care plan. She has had multiple wound care failures. Last seen here about 4 weeks ago, comes in monthly. They have been applying Moistened Silvercell with OptiForm over top daily to twice daily depending on drainage/contamination. Wound culture from 08/24/20 postive for Staphylococcus simulans, Anaerobic cocci and Prevotella oralis. She was treated with Flagyl. Patient states that ulcer is less painful and her daughter states it is not as red as it was. No acute concerns at this time. She denies chills, fever otherwise feeling of unwell. Progress of Wound: Stable no new concerns doing well with silvercell, completed her prior antibiotics, no signs of infection at this time. - Physical Exam Vital Signs Temp Pulse Resp BP 97.5 F L 74 16 118/56 L 10/19/20 13:01 10/19/20 13:01 10/19/20 13:01 10/19/20 13:59 General: Alert, Oriented x3, Cooperative, No apparent distress HEENT: Atraumatic Oral: Moist Mucosa Lungs: Clear to auscultation Cardiovascular: Regular rate Abdomen: Soft, Non Tender Extremities: No clubbing, No cyanosis, - - Left lower extremity amputation Skin: Ulcer/ Wound - See nursing documentation, stage III pressure ulcer of coccyx with adherent slough, no signs of infection at this time Wound Measurements and Assessment WC - Nurse 1 - General Ulcer Measurement Start: 10/19/20 13:01 Freq: Status: Active Protocol: Activity Type Activity Date Activity User E-Sign Co-Sign Detail Recorded Client Recorded Date Recorded By Document 10/19/20 13:01 BM [id number] 10/19/20 13:06 BM 10/19/20 13:01 Wound Center Nurse 1 [Ulcer Assessment] #4 Sacrum -Combined with other wound No -Current Size (cm) - Length 1.7 -Current Size (cm) - Width 1.1 -Current Size (cm) - Depth 0.8 -Total Square Cm 1.87 -Photo Taken No -Epithelialization None Present -Tunneling No -Undermining/Tunneling No -Circular Undermining No -Exudate Amt Small -Exudate Type Serosanguineous -Wound Margin Distinct, Outline Attached -Granulation Amt Large (67-100%) -Granulation Quality Red -Slough/Fibrin Yes -Necrosis Amt Small (1-33%) -Necrotic Tissue Type Adherent Slough -Texture (Alexus-wound Skin Appearance) Assessed, Scarring -Moisture (Alexus-wound Skin Appearance Assessed ) -Color (Alexus-wound Skin Appearance) Assessed -Temperature (Alexus-wound Skin No Abnormality Appearance) (Pt Warm) -Tenderness on Palpation (Alexus-wound No Skin Appearance) -Ulcer Cleansing Rinsed/ Irrigated with Saline -Foul Odor after Cleansing No -Anesthetic Used 5% Lidocaine Gel - Nurse 2 - General Ulcer CM Notes Start: 10/19/20 13:01 Freq: Status: Active Protocol: Activity Type Activity Date Activity User E-Sign Co-Sign Detail Recorded Client Recorded Date Recorded By Document 10/19/20 13:25 MW [id number] 10/19/20 13:30 MW 10/19/20 13:25 Wound Center Nurse 2 [Procedure/Treatment] -Time 13:26 -Correct Patient Yes -Correct Side, Site, Position Yes -Correct Procedure Yes -Procedure Performed Yes -Type of Procedure Debridement -Clinical Debridement Subcutaneous -Tissue Removed Subcutaneous -Post Debridement (cm) - Length 1.7 -Post Debridement (cm) - Width 1.2 -Post Debridement (cm) - Depth 0.6 -Total Square (Post) (cm) 2.04 -Area of Debridement (cm) - Length 1.7 -Area of Debridement (cm) - Width 1.2 -Total Square (Area) (cm) 2.04 -Tunneling No -Undermining/Tunneling No -Circular Undermining No -Wound/Ulcer Outcome Not Healed -Ulcer Cleansing Rinsed/ Irrigated with Saline -Foul Odor after Cleansing No -Bioengineered Tissue No -Bleeding Controlled with Pressure -Offloading No -Treatment Response Procedure Tolerated Well -Debridement - Subq, 1st 20sq cm Yes [See Physician Procedure note for Specifics] Pain Scale: 0-10 Numeric [Pain] -Is Patient Pain Free? Yes - Nurse 3 - General Ulcer D/C NN Start: 10/19/20 13:01 Freq: Status: Active Protocol: Activity Type Activity Date Activity User E-Sign Co-Sign Detail Recorded Client Recorded Date Recorded By Document 10/19/20 13:59 [id number] 10/19/20 14:00 RB 10/19/20 13:59 Wound Care Nurse 3 [Wound Dressing] #4 Sacrum -Ulcer Cleansing Rinsed/ Irrigated with Saline -Primary Dressing Applied Aquacel AG 4x4 -Other Dressing ABD -Primary Dressing Covered/Secured Dry Gauze, with Secured with Tape -Aquacel AG 4x4 1 [Post Procedure Tolerated] -Treatment Response Procedure Tolerated Well Vital Signs [Blood Pressure] -Blood Pressure (90/60-120/80) 118/56 L -Blood Pressure Mean (mm Hg) 76 -Source Monitor -Position Semi-Fowlers -Blood Pressure Location Right Arm Pain Scale: 0-10 Numeric [Pain] -Is Patient Pain Free? Yes - Visit Discharge [Visit Discharge Information] -Discharge Condition Stable -Ambulatory Status Wheelchair -Transportation Private Auto -Medication Reconcilliation completed No & provided to patient/care provider -Clinical Summary of Care Provided Yes Neurological: Neuro grossly intact Psych/Mental Status: Normal Affect, Appropriate, Alert and oriented to time, place, person, mood and affect Debridement Note Post-Debridement Measurements/Treatment WC - Nurse 2 - General Ulcer CM Notes Start: 10/19/20 13:01 Freq: Status: Active Protocol: Activity Type Activity Date Activity User E-Sign Co-Sign Detail Recorded Client Recorded Date Recorded By Document 10/19/20 13:25 MW [id number] 10/19/20 13:30 MW 10/19/20 13:25 Wound Center Nurse 2 #4 Sacrum -Time 13:26 -Correct Patient Yes -Correct Side, Site, Position Yes -Correct Procedure Yes -Procedure Performed Yes -Type of Procedure Debridement -Clinical Debridement Subcutaneous -Tissue Removed Subcutaneous -Post Debridement (cm) - Length 1.7 -Post Debridement (cm) - Width 1.2 -Post Debridement (cm) - Depth 0.6 -Total Square (Post) (cm) 2.04 -Area of Debridement (cm) - Length 1.7 -Area of Debridement (cm) - Width 1.2 -Total Square (Area) (cm) 2.04 -Tunneling No -Undermining/Tunneling No -Circular Undermining No -Wound/Ulcer Outcome Not Healed -Ulcer Cleansing Rinsed/ Irrigated with Saline -Foul Odor after Cleansing No -Bioengineered Tissue No -Bleeding Controlled with Pressure -Offloading No -Treatment Response Procedure Tolerated Well -Debridement - Subq, 1st 20sq cm Yes Pain Scale: 0-10 Numeric Is Patient Pain Free? Yes - Nurse 3 - General Ulcer D/C NN Start: 10/19/20 13:01 Freq: Status: Active Protocol: Activity Type Activity Date Activity User E-Sign Co-Sign Detail Recorded Client Recorded Date Recorded By Document 10/19/20 13:59 RB [id number] 10/19/20 14:00 RB 10/19/20 13:59 Wound Care Nurse 3 #4 Sacrum -Ulcer Cleansing Rinsed/ Irrigated with Saline -Primary Dressing Applied Aquacel AG 4x4 -Other Dressing ABD -Primary Dressing Covered/Secured with Dry Gauze, Secured with Tape -Aquacel AG 4x4 1 Treatment Response Procedure Tolerated Well Vital Signs Blood Pressure (90/60-120/80) 118/56 L Blood Pressure Mean (mm Hg) 76 Source Monitor Position Semi-Fowlers Blood Pressure Location Right Arm Pain Scale: 0-10 Numeric Is Patient Pain Free? Yes WC - Visit Discharge Discharge Condition Stable Ambulatory Status Wheelchair Transportation Private Auto Medication Reconcilliation completed & No provided to patient/care provider Clinical Summary of Care Provided Yes Wound debrided: Stage III pressure injury of coccyx Type of Debridement: Excisional debridement Anesthesia Used: 5% Lidocaine Gel Depth: in the subcutaneous layer Percentage of wound debrided: 100 Instrument Used: 5mm curette Tissue Removed: Slough and devitalized tissue Severity: Fat Layer Exposed Amount of bleeding with debridement: Mild Bleeding Controlled with: Pressure Patient tolerated procedure well Assessment/Plan Assessment: See above diagnoses Plan: Debridement done as documented above, procedure was well-tolerated. Dressing changes of Aquacel silver moistened change daily and OptiFoam. Continue offloading, increased protein intake and exercise as tolerated. Their questions were answered and they were advised to call with any further questions or concerns. Continue with palliative wound care. Follow-up in a month. This note was generated with [employer] dictation software. It may contain incorrect words, spelling, and punctuation that were not noted in checking the note before signing. [id number]: [id number] Angie subq tissue 20 sq cm/<
== END 2020-11-16 23:59 ==
LOC: WC 13:00
PROVIDERS: PCP Family Medicine; Referring Provider Internal Medicine; Visit Provider Internal Medicine
DX: L89.153 Pressure ulcer of sacral region, stage 3 (principal); D64.9 Anemia, unspecified; E78.5 Hyperlipidemia, unspecified; M16.0 Bilateral primary osteoarthritis of hip; M81.0 Age-related osteoporosis without current pathological fracture; Z89.612 Acquired absence of left leg above knee
CPT/HCPCS: 11042

== ENCOUNTER 2020-11-23 13:15 | Outpatient (RCR) | payer MEDICARE, OTHER, SELFPAY ==
[2020-11-17 00:19] VITALS: BP 118/56; PULSE 74; RESP 16; TEMP 36.4
[2020-11-23 13:16] VITALS: BP 155/53; PULSE 82; RESP 16; TEMP 37.1; BMI 17.7
--- NOTE | 2020-11-23 16:58 | PCM.WC.PN ---
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 Qualifiers: Code(s): S88.912A - Complete traumatic amputation of left lower leg, level unspecified, initial encounter (3) DVT (deep venous thrombosis) Status: Chronic Code(s): I82.409 - Acute embolism and thrombosis of unspecified deep veins of unspecified lower extremity (4) Hyperlipidemia Status: Chronic Code(s): E78.5 - Hyperlipidemia, unspecified (5) Hypertension Status: Chronic Code(s): I10 - Essential (primary) hypertension (6) Hypothyroidism Status: Chronic Code(s): E03.9 - Hypothyroidism, unspecified (7) Immobility Status: Chronic Code(s): Z74.09 - Other reduced mobility (8) Malnutrition Status: Chronic Code(s): E46 - Unspecified protein-calorie malnutrition (9) Osteoarthritis of hips, bilateral Status: Chronic Code(s): M16.0 - Bilateral primary osteoarthritis of hip (10) Osteoporosis Status: Chronic Code(s): M81.0 - Age-related osteoporosis without current pathological fracture Type of Wound Date of Service: 11/23/20 Chief Complaint: 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 She is currently on a complex wound care plan. She has had multiple wound care failures. Last seen here about 4 weeks ago, comes in monthly. They have been applying Moistened Silvercell with OptiForm over top daily to twice daily depending on drainage/contamination. Wound culture from 08/24/20 postive for Staphylococcus simulans, Anaerobic cocci and Prevotella oralis. She was treated with Flagyl. No acute concerns at this time. She denies chills, fever otherwise feeling of unwell. Progress of Wound: worsening, patient does note more pain and size slightly worsened, cultures were collected today, denies any systemic signs of infection. - Physical Exam Vital Signs Temp Pulse Resp BP 98.7 F 82 16 155/53 H 11/23/20 13:16 11/23/20 13:16 11/23/20 13:16 11/23/20 13:16 General: Alert, Oriented x3, Cooperative, No apparent distress HEENT: Atraumatic Neck: Supple Lungs: Clear to auscultation Cardiovascular: Regular rate, Regular Rhythm Abdomen: Soft, Non Tender Extremities: No clubbing, No cyanosis, No edema, - - Left lower extremity amputation Skin: Ulcer/ Wound - See nursing documentation, slough and devitalized tissue, no signs of obvious infection at this time Wound Measurements and Assessment WC - Nurse 1 - General Ulcer Measurement Start: 11/23/20 13:16 Freq: Status: Active Protocol: Activity Type Activity Date Activity User E-Sign Co-Sign Detail Recorded Client Recorded Date Recorded By Document 11/23/20 13:16 BMF [id number] 11/23/20 13:20 BMF 11/23/20 13:16 Wound Center Nurse 1 [Ulcer Assessment] #4 Sacrum -Combined with other wound No -Current Size (cm) - Length 2.4 -Current Size (cm) - Width 1 -Current Size (cm) - Depth 0.5 -Total Square Cm 2.4 -Photo Taken No -Epithelialization None Present -Tunneling No -Undermining/Tunneling No -Circular Undermining No -Exudate Amt Medium -Exudate Type Serosanguineous -Wound Margin Distinct, Outline Attached -Granulation Amt Large (67-100%) -Granulation Quality Red -Slough/Fibrin Yes -Necrosis Amt Small (1-33%) -Necrotic Tissue Type Adherent Slough -Texture (Alexus-wound Skin Appearance) Assessed, Scarring -Moisture (Alexus-wound Skin Appearance Assessed ) -Color (Alexus-wound Skin Appearance) Assessed, Erythema -Temperature (Alexus-wound Skin No Abnormality Appearance) (Pt Warm) -Tenderness on Palpation (Alexus-wound No Skin Appearance) -Ulcer Cleansing Rinsed/ Irrigated with Saline -Foul Odor after Cleansing No -Anesthetic Used 4% Lidocaine Solution WC - Nurse 2 - General Ulcer CM Notes Start: 11/23/20 13:16 Freq: Status: Active Protocol: Activity Type Activity Date Activity User E-Sign Co-Sign Detail Recorded Client Recorded Date Recorded By Document 11/23/20 13:27 MW [id number] 11/23/20 13:34 MW 11/23/20 13:27 Wound Center Nurse 2 [Procedure/Treatment] -Time 13:33 -Correct Patient Yes -Correct Side, Site, Position Yes -Correct Procedure Yes -Procedure Performed Yes -Type of Procedure Debridement -Clinical Debridement Subcutaneous -Tissue Removed Subcutaneous -Post Debridement (cm) - Length 2.0 -Post Debridement (cm) - Width 1.5 -Post Debridement (cm) - Depth 0.9 -Total Square (Post) (cm) 3.00 -Area of Debridement (cm) - Length 2.0 -Area of Debridement (cm) - Width 1.5 -Total Square (Area) (cm) 3.00 -Tunneling No -Undermining/Tunneling No -Circular Undermining No -Wound/Ulcer Outcome Not Healed -Ulcer Cleansing Rinsed/ Irrigated with Saline -Foul Odor after Cleansing No -Bioengineered Tissue No -Bleeding Controlled with Pressure -Offloading No -Treatment Response Procedure Tolerated Well -Debridement - Subq, 1st 20sq cm Yes [See Physician Procedure note for Specifics] Pain Scale: 0-10 Numeric [Pain] -Is Patient Pain Free? Yes - Nurse 3 - General Ulcer D/C NN Start: 11/23/20 13:16 Freq: Status: Active Protocol: Activity Type Activity Date Activity User E-Sign Co-Sign Detail Recorded Client Recorded Date Recorded By Document 11/23/20 13:47 [facility] [id number] 11/23/20 13:48 [facility] 11/23/20 13:47 Wound Care Nurse 3 [Wound Dressing] #4 Sacrum -Ulcer Cleansing Rinsed/ Irrigated with Saline -Foul Odor after Cleansing No -Primary Dressing Applied Silvercel -Primary Dressing Covered/Secured Secured with with Tape,Other -Other Covering abd -Silvercel 1 [Post Procedure Tolerated] -Treatment Response Procedure Tolerated Well Pain Scale: 0-10 Numeric [Pain] -Is Patient Pain Free? Yes - Visit Discharge [Visit Discharge Information] -Discharge Condition Stable -Ambulatory Status Wheelchair -Accompanied by daughter Neurological: Neuro grossly intact Psych/Mental Status: Normal Affect, Appropriate, Alert and oriented to time, place, person, mood and affect Debridement Note Post-Debridement Measurements/Treatment WC - Nurse 2 - General Ulcer CM Notes Start: 11/23/20 13:16 Freq: Status: Active Protocol: Activity Type Activity Date Activity User E-Sign Co-Sign Detail Recorded Client Recorded Date Recorded By Document 11/23/20 13:27 [id number] 11/23/20 13:34 MW 11/23/20 13:27 Wound Center Nurse 2 #4 Sacrum -Time 13:33 -Correct Patient Yes -Correct Side, Site, Position Yes -Correct Procedure Yes -Procedure Performed Yes -Type of Procedure Debridement -Clinical Debridement Subcutaneous -Tissue Removed Subcutaneous -Post Debridement (cm) - Length 2.0 -Post Debridement (cm) - Width 1.5 -Post Debridement (cm) - Depth 0.9 -Total Square (Post) (cm) 3.00 -Area of Debridement (cm) - Length 2.0 -Area of Debridement (cm) - Width 1.5 -Total Square (Area) (cm) 3.00 -Tunneling No -Undermining/Tunneling No -Circular Undermining No -Wound/Ulcer Outcome Not Healed -Ulcer Cleansing Rinsed/ Irrigated with Saline -Foul Odor after Cleansing No -Bioengineered Tissue No -Bleeding Controlled with Pressure -Offloading No -Treatment Response Procedure Tolerated Well -Debridement - Subq, 1st 20sq cm Yes Pain Scale: 0-10 Numeric Is Patient Pain Free? Yes - Nurse 3 - General Ulcer D/C NN Start: 11/23/20 13:16 Freq: Status: Active Protocol: Activity Type Activity Date Activity User E-Sign Co-Sign Detail Recorded Client Recorded Date Recorded By Document 11/23/20 13:47 [facility] [id number] 11/23/20 13:48 [facility] 11/23/20 13:47 Wound Care Nurse 3 #4 Sacrum -Ulcer Cleansing Rinsed/ Irrigated with Saline -Foul Odor after Cleansing No -Primary Dressing Applied Silvercel -Primary Dressing Covered/Secured with Secured with Tape,Other -Other Covering abd -Silvercel 1 Treatment Response Procedure Tolerated Well Pain Scale: 0-10 Numeric Is Patient Pain Free? Yes WC - Visit Discharge Discharge Condition Stable Ambulatory Status Wheelchair Accompanied by daughter Wound debrided: stAge 3 pressure injury to coccyx Type of Debridement: Excisional debridement Anesthesia Used: 5% Lidocaine Gel Depth: in the subcutaneous layer Percentage of wound debrided: 100 Instrument Used: 5mm curette Tissue Removed: Slough and devitalized tissue Severity: Fat Layer Exposed Amount of bleeding with debridement: Mild Bleeding Controlled with: Pressure Patient tolerated procedure well Assessment/Plan Active Problems Stage III pressure ulcer (Chronic) coccyx Amputation of left lower extremity (Chronic) Immobility (Chronic) Malnutrition (Chronic) Osteoporosis (Chronic) Hypothyroidism (Chronic) Hypertension (Chronic) DVT (deep venous thrombosis) (Chronic) Hyperlipidemia (Chronic) Osteoarthritis of hips, bilateral (Chronic) Assessment: See above diagnoses Plan: Debridement done as documented above, procedure was well-tolerated. Dressing changes of Aquacel silver moistened change daily and OptiFoam. Continue offloading, increased protein intake and exercise as tolerated. Their questions were answered and they were advised to call with any further questions or concerns. Continue with palliative wound care. Follow-up in a month. This note was generated with [employer] dictation software. It may contain incorrect words, spelling, and punctuation that were not noted in checking the note before signing. [id number]: [id number] Angie subq tissue 20 sq cm/<
--- NOTE | 2020-11-28 16:04 | WC ---
Received a call from Wilbur Gallagher NP. Wound culture results reviewed and doxycycline prescription sent to pharmacy per Wilbur. Patient daughter notified. voiced understanding.
== END 2020-12-17 23:59 ==
LOC: WC 13:15
PROVIDERS: PCP Family Medicine; Referring Provider Internal Medicine; Visit Provider Internal Medicine
DX: L89.153 Pressure ulcer of sacral region, stage 3 (principal); I82.409 Acute embolism and thrombosis of unspecified deep veins of unspecified lower extremity; I10 Essential (primary) hypertension; E78.5 Hyperlipidemia, unspecified; E03.9 Hypothyroidism, unspecified; M16.0 Bilateral primary osteoarthritis of hip; M81.0 Age-related osteoporosis without current pathological fracture; Z79.01 Long term (current) use of anticoagulants; Z79.899 Other long term (current) drug therapy; Z89.612 Acquired absence of left leg above knee
CPT/HCPCS: 11042; 87070; 87075; 87077; 87186; 87205

== ENCOUNTER 2020-12-21 13:00 | Outpatient (RCR) | payer MEDICARE, OTHER, SELFPAY ==
[2020-12-18 00:20] VITALS: BP 155/53; PULSE 82; RESP 16; TEMP 37.1
[2020-12-21 13:29] VITALS: BP 109/50; PULSE 75; RESP 18; TEMP 36.5; BMI 17.7
--- NOTE | 2020-12-21 14:04 | PN.PCM_ITS ---
(1) Stage III pressure ulcer Status: Chronic Qualifiers: Code(s): L89.93 - Pressure ulcer of unspecified site, stage 3 Comment: coccyx (2) Hypertension Status: Chronic Code(s): I10 - Essential (primary) hypertension (3) Hypothyroidism Status: Chronic Code(s): E03.9 - Hypothyroidism, unspecified (4) Immobility Status: Chronic Code(s): Z74.09 - Other reduced mobility (5) Malnutrition Status: Chronic Code(s): E46 - Unspecified protein-calorie malnutrition (6) Osteoarthritis of hips, bilateral Status: Chronic Code(s): M16.0 - Bilateral primary osteoarthritis of hip (7) Osteoporosis Status: Chronic Code(s): M81.0 - Age-related osteoporosis without current pathological fracture Type of Wound Date of Service: 12/21/20 Chief Complaint: 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 She is currently on a complex wound care plan. She has had multiple wound care failures. Last seen here about 4 weeks ago, comes in monthly. They have been applying Moistened Silvercell with OptiFoam over top daily to twice daily depending on drainage/c ontamination. Wound culture from 08/24/20 postive for Staphylococcus simulans, Anaerobic cocci and Prevotella oralis. She was treated with Flagyl. No acute concerns at this time. She denies chills, fever otherwise feeling of unwell. Progress of Wound: stable, no new concerns, denies any systemic signs of infection. - Physical Exam Vital Signs Temp Pulse Resp BP 97.7 F L 75 18 109/50 L 12/21/20 13:29 12/21/20 13:29 12/21/20 13:29 12/21/20 13:29 General: Alert, Oriented x3, Cooperative, No apparent distress HEENT: Atraumatic Oral: Moist Mucosa Neck: Supple Lungs: Clear to auscultation Cardiovascular: Regular rate, Regular Rhythm Abdomen: Soft, Non Tender Extremities: No clubbing, No cyanosis, No edema, - - left lower extremity amputee Skin: Ulcer/ Wound - see nursing documentation, slough and devitalized tissue, no signs of obvious infection at this time Wound Measurements and Assessment ROMI - Nurse 1 - General Ulcer Measurement Start: 12/21/20 13:29 Freq: Status: Active Protocol: Activity Type Activity Date Activity User E-Sign Co-Sign Detail Recorded Client Recorded Date Recorded By Document 12/21/20 13:29 DL [id number] 12/21/20 13:32 DL 12/21/20 13:29 Wound Center Nurse 1 [Ulcer Assessment] #4 Sacrum -Current Size (cm) - Length 2.1 -Current Size (cm) - Width 1.4 -Current Size (cm) - Depth 0.7 -Total Square Cm 2.94 -Photo Taken No -Exudate Amt Medium -Exudate Type Serosanguineous -Wound Margin Distinct, Outline Attached -Granulation Amt Medium (34-66%) -Granulation Quality Red -Necrosis Amt Medium (34-66%) -Necrotic Tissue Type Adherent Slough -Structure Exposed N/A -Texture (Alexus-wound Skin Appearance) Scarring -Moisture (Alexus-wound Skin Appearance No Abnormality ) -Color (Alexus-wound Skin Appearance) No Abnormality -Temperature (Alexus-wound Skin No Abnormality Appearance) (Pt Warm) -Tenderness on Palpation (Alexus-wound No Skin Appearance) -Ulcer Cleansing Rinsed/ Irrigated with Saline -Foul Odor after Cleansing No -Anesthetic Used 4% Lidocaine Solution ROMI - Nurse 2 - General Ulcer CM Notes Start: 12/21/20 13:29 Freq: Status: Active Protocol: Activity Type Activity Date Activity User E-Sign Co-Sign Detail Recorded Client Recorded Date Recorded By Document 12/21/20 13:45 MW [id number] 12/21/20 13:47 MW 12/21/20 13:45 Wound Center Nurse 2 [Procedure/Treatment] -Time 13:46 -Correct Patient Yes -Correct Side, Site, Position Yes -Correct Procedure Yes -Procedure Performed Yes -Type of Procedure Chemical Cauterization ( $) -Clinical Debridement Subcutaneous -Tissue Removed Subcutaneous -Post Debridement (cm) - Length 1.9 -Post Debridement (cm) - Width 1.5 -Post Debridement (cm) - Depth 0.9 -Total Square (Post) (cm) 2.85 -Area of Debridement (cm) - Length 1.9 -Area of Debridement (cm) - Width 1.5 -Total Square (Area) (cm) 2.85 -Tunneling No -Undermining/Tunneling No -Circular Undermining No -Wound/Ulcer Outcome Not Healed -Ulcer Cleansing Rinsed/ Irrigated with Saline -Foul Odor after Cleansing No -Bioengineered Tissue No -Bleeding Controlled with Pressure,Silver Nitrate -Offloading No -Debridement - Subq, 1st 20sq cm Yes [See Physician Procedure note for Specifics] Pain Scale: 0-10 Numeric [Pain] -Is Patient Pain Free? Yes Neurological: Neuro grossly intact Psych/Mental Status: Normal Affect, Appropriate, Alert and oriented to time, place, person, mood and affect Debridement Note Post-Debridement Measurements/Treatment WC - Nurse 2 - General Ulcer CM Notes Start: 12/21/20 13:29 Freq: Status: Active Protocol: Activity Type Activity Date Activity User E-Sign Co-Sign Detail Recorded Client Recorded Date Recorded By Document 12/21/20 13:45 MW [id number] 12/21/20 13:47 MW 12/21/20 13:45 Wound Center Nurse 2 #4 Sacrum -Time 13:46 -Correct Patient Yes -Correct Side, Site, Position Yes -Correct Procedure Yes -Procedure Performed Yes -Type of Procedure Chemical Cauterization ( $) -Clinical Debridement Subcutaneous -Tissue Removed Subcutaneous -Post Debridement (cm) - Length 1.9 -Post Debridement (cm) - Width 1.5 -Post Debridement (cm) - Depth 0.9 -Total Square (Post) (cm) 2.85 -Area of Debridement (cm) - Length 1.9 -Area of Debridement (cm) - Width 1.5 -Total Square (Area) (cm) 2.85 -Tunneling No -Undermining/Tunneling No -Circular Undermining No -Wound/Ulcer Outcome Not Healed -Ulcer Cleansing Rinsed/ Irrigated with Saline -Foul Odor after Cleansing No -Bioengineered Tissue No -Bleeding Controlled with Pressure,Silver Nitrate -Offloading No -Debridement - Subq, 1st 20sq cm Yes Pain Scale: 0-10 Numeric Is Patient Pain Free? Yes Wound debrided: stage 3 pressure injury to coccyx Type of Debridement: Excisional debridement Anesthesia Used: 5% Lidocaine Gel Depth: in the subcutaneous layer Percentage of wound debrided: 100 Instrument Used: 5mm curette Tissue Removed: slough and devitalized tissue Severity: Fat Layer Exposed Amount of bleeding with debridement: Moderate Bleeding Controlled with: Silver Nitrate Patient tolerated procedure well Assessment/Plan Assessment: See above diagnoses Plan: Debridement done as documented above, procedure was well-tolerated. Dressing changes of Aquacel silver moistened change daily and OptiFoam. Continue offloading, increased protein intake and exercise as tolerated. Their questions were answered and they were advised to call with any further questions or concerns. Continue with palliative wound care. Follow-up in a month. This note was generated with [employer] dictation software. It may contain incorrect word s, spelling, and punctuation that were not noted in checking the note before signing. [id number]: [id number] Angie subq tissue 20 sq cm/< [id number]-193xx: [id number] Chemical cautery tissue
== END 2021-01-14 23:59 ==
LOC: WC 13:00
PROVIDERS: PCP Family Medicine; Visit Provider Nurse Practitioner Family
DX: L89.153 Pressure ulcer of sacral region, stage 3 (principal); I10 Essential (primary) hypertension; E03.9 Hypothyroidism, unspecified; M16.0 Bilateral primary osteoarthritis of hip; M81.0 Age-related osteoporosis without current pathological fracture; Z79.01 Long term (current) use of anticoagulants; Z79.899 Other long term (current) drug therapy; Z89.612 Acquired absence of left leg above knee
CPT/HCPCS: 11042; 17250

== ENCOUNTER 2021-01-18 13:00 | Outpatient (RCR) | payer MEDICARE, OTHER, SELFPAY ==
[2021-01-15 00:19] VITALS: BP 109/50; PULSE 75; RESP 18; TEMP 36.5
[2021-01-18 13:02] VITALS: BP 95/37; PULSE 71; RESP 16; TEMP 36.2; BMI 17.7
--- NOTE | 2021-01-19 11:34 | PN.PCM_ITS ---
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 Qualifiers: Code(s): S88.912A - Complete traumatic amputation of left lower leg, level unspecified, initial encounter (3) Hypertension Status: Chronic Code(s): I10 - Essential (primary) hypertension (4) Hypothyroidism Status: Chronic Code(s): E03.9 - Hypothyroidism, unspecified (5) Immobility Status: Chronic Code(s): Z74.09 - Other reduced mobility (6) Malnutrition Status: Chronic Code(s): E46 - Unspecified protein-calorie malnutrition (7) Osteoarthritis of hips, bilateral Status: Chronic Code(s): M16.0 - Bilateral primary osteoarthritis of hip (8) Osteoporosis Status: Chronic Code(s): M81.0 - Age-related osteoporosis without current pathological fracture Type of Wound Date of Service: 01/18/21 Chief Complaint: 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 She is currently on a complex wound care plan. She has had multiple wound care failures. Last seen here about 4 weeks ago, comes in monthly. They have been applying Moistened Silvercell with OptiFoam over top daily to twice daily depending on drainage/contamination. Wound culture from 08/24/20 postive for Staphylococcus simulans, Anaerobic cocci and Prevotella oralis. She was treated with Flagyl. No acute concerns at this time. She denies chills, fever otherwise feeling of unwell. Progress of Wound: stable, no new concerns, denies any systemic signs of infection. - Physical Exam Vital Signs Temp Pulse Resp BP 97.1 F L 71 16 95/37 L 01/18/21 13:02 01/18/21 13:02 01/18/21 13:02 01/18/21 13:02 General: Alert, Oriented x3, Cooperative, No apparent distress HEENT: Atraumatic Oral: Moist Mucosa Cardiovascular: Regular rate Abdomen: Soft, Non Tender Extremities: No clubbing, No cyanosis, - - Left lower extremity amputation Skin: Ulcer/ Wound - See nursing documentation, slough and devitalized tissue present, no signs of obvious infection at this time Wound Measurements and Assessment WC - Nurse 1 - General Ulcer Measurement Start: 01/18/21 13:01 Freq: Status: Active Protocol: Activity Type Activity Date Activity User E-Sign Co-Sign Detail Recorded Client Recorded Date Recorded By Document 01/18/21 13:02 MS [id number] 01/18/21 13:15 MS 01/18/21 13:02 Wound Center Nurse 1 [Ulcer Assessment] #4 Sacrum -Current Size (cm) - Length 2 -Current Size (cm) - Width 1 -Current Size (cm) - Depth 0.8 -Total Square Cm 2 -Exudate Amt None Present -Wound Margin Distinct, Outline Attached -Granulation Amt Small (1-33%) -Slough/Fibrin Yes -Necrosis Amt Small (1-33%) -Texture (Alexus-wound Skin Appearance) No Abnormality -Moisture (Alexus-wound Skin Appearance No Abnormality ) -Color (Alexus-wound Skin Appearance) No Abnormality -Temperature (Alexus-wound Skin No Abnormality Appearance) (Pt Warm) -Tenderness on Palpation (Alexus-wound No Skin Appearance) -Ulcer Cleansing Rinsed/ Irrigated with Saline -Foul Odor after Cleansing No -Anesthetic Used 4% Lidocaine Solution WC - Nurse 2 - General Ulcer CM Notes Start: 01/18/21 13:01 Freq: Status: Active Protocol: Activity Type Activity Date Activity User E-Sign Co-Sign Detail Recorded Client Recorded Date Recorded By Document 01/18/21 13:43 MW [id number] 01/18/21 13:44 MW 01/18/21 13:43 Wound Center Nurse 2 [Procedure/Treatment] -Time 13:43 -Correct Patient Yes -Correct Side, Site, Position Yes -Correct Procedure Yes -Procedure Performed Yes -Type of Procedure Debridement -Clinical Debridement Subcutaneous -Tissue Removed Subcutaneous -Post Debridement (cm) - Length 1.7 -Post Debridement (cm) - Width 1.2 -Post Debridement (cm) - Depth 0.7 -Total Square (Post) (cm) 2.04 -Area of Debridement (cm) - Length 1.7 -Area of Debridement (cm) - Width 1.2 -Total Square (Area) (cm) 2.04 -Tunneling No -Undermining/Tunneling No -Circular Undermining No -Wound/Ulcer Outcome Not Healed -Ulcer Cleansing Rinsed/ Irrigated with Saline -Foul Odor after Cleansing No -Bioengineered Tissue No -Bleeding Controlled with Pressure,Silver Nitrate -Offloading No -Treatment Response Procedure Tolerated Well -Debridement - Subq, 1st 20sq cm Yes [See Physician Procedure note for Specifics] Pain Scale: 0-10 Numeric [Pain] -Is Patient Pain Free? Yes - Nurse 3 - General Ulcer D/C NN Start: 01/18/21 13:01 Freq: Status: Active Protocol: Activity Type Activity Date Activity User E-Sign Co-Sign Detail Recorded Client Recorded Date Recorded By Document 01/18/21 13:55 MS [id number] 01/18/21 13:57 MS 01/18/21 13:55 Wound Care Nurse 3 [Wound Dressing] #4 Sacrum -Ulcer Cleansing Rinsed/ Irrigated with Saline -Foul Odor after Cleansing No -Primary Dressing Applied Silvercel -Other Dressing abd -Primary Dressing Covered/Secured Secured with with Tape -Silvercel 1 Pain Scale: 0-10 Numeric [Pain] -Is Patient Pain Free? Yes - Visit Discharge [Visit Discharge Information] -Discharge Condition Stable -Ambulatory Status Wheelchair -Medication Reconcilliation completed No & provided to patient/care provider -Clinical Summary of Care Provided Yes Neurological: Neuro grossly intact Psych/Mental Status: Normal Affect, Appropriate, Alert and oriented to time, place, person, mood and affect Debridement Note Post-Debridement Measurements/Treatment WC - Nurse 2 - General Ulcer CM Notes Start: 01/18/21 13:01 Freq: Status: Active Protocol: Activity Type Activity Date Activity User E-Sign Co-Sign Detail Recorded Client Recorded Date Recorded By Document 01/18/21 13:43 MW [id number] 01/18/21 13:44 MW 01/18/21 13:43 Wound Center Nurse 2 #4 Sacrum -Time 13:43 -Correct Patient Yes -Correct Side, Site, Position Yes -Correct Procedure Yes -Procedure Performed Yes -Type of Procedure Debridement -Clinical Debridement Subcutaneous -Tissue Removed Subcutaneous -Post Debridement (cm) - Length 1.7 -Post Debridement (cm) - Width 1.2 -Post Debridement (cm) - Depth 0.7 -Total Square (Post) (cm) 2.04 -Area of Debridement (cm) - Length 1.7 -Area of Debridement (cm) - Width 1.2 -Total Square (Area) (cm) 2.04 -Tunneling No -Undermining/Tunneling No -Circular Undermining No -Wound/Ulcer Outcome Not Healed -Ulcer Cleansing Rinsed/ Irrigated with Saline -Foul Odor after Cleansing No -Bioengineered Tissue No -Bleeding Controlled with Pressure,Silver Nitrate -Offloading No -Treatment Response Procedure Tolerated Well -Debridement - Subq, 1st 20sq cm Yes Pain Scale: 0-10 Numeric Is Patient Pain Free? Yes - Nurse 3 - General Ulcer D/C NN Start: 01/18/21 13:01 Freq: Status: Active Protocol: Activity Type Activity Date Activity User E-Sign Co-Sign Detail Recorded Client Recorded Date Recorded By Document 01/18/21 13:55 MS [id number] 01/18/21 13:57 MS 01/18/21 13:55 Wound Care Nurse 3 #4 Sacrum -Ulcer Cleansing Rinsed/ Irrigated with Saline -Foul Odor after Cleansing No -Primary Dressing Applied Silvercel -Other Dressing abd -Primary Dressing Covered/Secured with Secured with Tape -Silvercel 1 Pain Scale: 0-10 Numeric Is Patient Pain Free? Yes WC - Visit Discharge Discharge Condition Stable Ambulatory Status Wheelchair Medication Reconcilliation completed & No provided to patient/care provider Clinical Summary of Care Provided Yes Wound debrided: Stage III pressure injury to coccyx Type of Debridement: Excisional debridement Anesthesia Used: 5% Lidocaine Gel Depth: in the subcutaneous layer Percentage of wound debrided: 100 Instrument Used: 5mm curette Tissue Removed: Slough and devitalized tissue Severity: Fat Layer Exposed Amount of bleeding with debridement: Mild Bleeding Controlled with: Pressure Patient tolerated procedure well Assessment/Plan Assessment: See above diagnoses Plan: Debridement done as documented above, procedure was well-tolerated. Dressing changes of Aquacel silver moistened change daily and OptiFoam. Did discuss with patient that her blood pressure was a little low today and they should contact primary care to see about adjusting the patient's blood pressure medications. Currently asymptomatic. Discussed this with patient's daughter as well.Continue offloading, increased protein intake and exercise as tolerated. Their questions were answered and they were advised to call with any further questions or concerns. Continue with palliative wound care. Follow-up in a [facility]. This note was generated with [employer] software. It may contain incorrect words, spelling, and punctuation that were not noted in checking the note before signing. [id number]: [id number] Angie subq tissue 20 sq cm/<
== END 2021-02-14 23:59 ==
LOC: WC 13:00
PROVIDERS: PCP Family Medicine; Visit Provider Nurse Practitioner Family
DX: L89.153 Pressure ulcer of sacral region, stage 3 (principal); I10 Essential (primary) hypertension; E03.9 Hypothyroidism, unspecified; M16.0 Bilateral primary osteoarthritis of hip; M81.0 Age-related osteoporosis without current pathological fracture; Z79.01 Long term (current) use of anticoagulants; Z79.899 Other long term (current) drug therapy; Z89.612 Acquired absence of left leg above knee
CPT/HCPCS: 11042

== ENCOUNTER 2021-02-16 19:01 | Inpatient (IN) | payer MEDICARE, OTHER, SELFPAY ==
[2021-02-15 13:15] VITALS: BMI 17.7
[2021-02-16] VITALS (8 sets, daily range): BP systolic 118–137; BP diastolic 48–64; PULSE 72–95; RESP 15–18; TEMP 36.6–36.9; O2SAT 98–99; BMI 15.7; BMI 14.8; BMI 14.9
--- NOTE | 2021-02-16 19:12 | EKG12_ITS ---
Test Reason : DYSRHYTHMIA Blood Pressure : / mmHG Vent. Rate : 078 BPM Atrial Rate : 078 BPM P-R Int : 144 ms QRS Dur : 086 ms QT Int : 412 ms P-R-T Axes : 052 037 055 degrees QTc Int : 469 ms Sinus rhythm with Premature supraventricular complexes and with occasional Premature ventricular comp lexes Septal infarct , age undetermined Abnormal ECG Confirmed by COLBY ULRICH, ANATOLIY ([id number]), features editor FARHANA GALAN ([id number]) on 02/21/2021 7:43:56 AM Referred By: CL Confirmed By:ANATOLIY BOWMAN MD
--- NOTE | 2021-02-16 19:12 | RAD_ITS ---
INDICATION: weakness EXAMINATION/TECHNIQUE: X-RAY - XR Chest 1 View COMPARISON: 06/29/2018. FINDINGS: The lungs are clear. Tortuous and calcified thoracic aorta. The heart is not enlarged. No pleural effusion or pneumothorax. Senescent changes of the bones. RAD/Chest 1 View (Portable) IMPRESSION: No acute radiographic abnormalities. Electronically Signed: Edy Cedeno MD at 20:08 EDT Tel , Service support ,
[2021-02-16 19:41] LABS: Absolute Lymphocyte Count 1.59 X10^3/uL (0.83-4.51); Absolute Neutrophil Count 14.1 X10^3/uL (2.0-7.7); Basophil# 0.06 X10^3/uL; Basophil% 0.4 % (0-1); Eosinophil# 0.07 X10^3/uL; Eosinophils% 0.4 % (0-5); Hematocrit 31.1 % (37-47); Hemoglobin 8.8 g/dL (12.0-15.0); Lymphocyte # 1.59 X10^3/ul (4.0); Lymphocyte % 9.4 % (19-41); Mean Corp Hgb Conc 28.3 g/dL (32-36); Mean Corpuscular Hgb 23.3 pg (27.0-32.0); Mean Corpuscular Volume 82.3 fL (81-99); Mean Platelet Vol. 9.3 fl (6.2-12.0); Monocyte# 1.01 X10^3/uL; Monocyte% 5.9 % (0-10); NRBC Flagged by Analyzer 0 % (0-5); Neutrophil # 14.12 X10^3/uL (2.7-7.7); Neutrophil % 83.1 % (47-70); POSITIVE COUNT YES; RBC Distribution Width CV 17.4 % (11.6-14.6); RBC Distribution Width SD 51.7 fl (35.1-43.9); Red Blood Count 3.78 M/mm3 (4.2-5.4)
[2021-02-16 19:48] LABS: Differential Indicated SCAN CRITERIA MET; Platelet Count 790 K/mm3 (150-450)
[2021-02-16 20:01] LABS: Lactic Acid 1.8 mmol/L (0.4-1.9)
[2021-02-16 20:03] LABS: ALB/GLOB Ratio 0.5 RATIO (0.9-2.4); AST(SGOT) 10 U/L (15-37); Alanine Aminotransfer ALT/SGPT 8 U/L (13-56); Albumin, Serum 2.4 g/dL (3.2-5.0); Alkaline Phosphatase 135 U/L (45-117); Anion Gap 6 (5-15); BUN 11 mg/dL (7-18); BUN/Creat Ratio 17.5 RATIO (10-20); Calcium,Total 8.4 mg/dL (8.5-10.1); Chloride 100 mmol/L (98-107); Creatinine, Serum 0.63 mg/dL (0.55-1.02); EST Glomerular Filtration Rate 96 mL/min (>60); Est Glom Filt Rate - Afr Amer 117 mL/min (>60); Estimated Creatinine Clearance 28.13 ml/min; Globulin 4.7 g/dL (2.2-4.2); Glucose 107 mg/dL (74-106); Potassium 3.5 mmol/L (3.5-5.1); Protein, Total 7.1 g/dL (6.4-8.2); Sodium Level 136 mmol/L (136-145)
[2021-02-16 20:10] LABS: Differential Comment SCANNED; Platelet Estimate MKD INC (ADEQ)
--- NOTE | 2021-02-16 20:26 | ED.DCSUM_ITS ---
History of Present Illness Chief Complaint: Abn Labs Informant: Patient, Family Narrative: 85-year-old female presents with concern for abnormal labs. Patient sees wound care regularly for a sacral decubitus ulcer. Lab work was done because the ulcer is progressing. Her family doctor as well as the wound center contacted her with concern for elevated platelet count. The daughter as well as the patient denies any fever, chills, worsening pain. Past Medical History - Allergies and Home Meds Allergies/Adverse Reactions: Allergies amoxicillin [From Augmentin] Allergy (Verified 02/16/21 19:08) Hives azathioprine [From Imuran] Allergy (Verified 02/16/21 19:08) Hives ceftriaxone Allergy (Verified 02/16/21 19:08) Hives celecoxib Allergy (Verified 02/16/21 19:08) Hives clavulanic acid [From Augmentin] Allergy (Verified 02/16/21 19:08) Hives etodolac Allergy (Verified 02/16/21 19:08) Hives methotrexate Allergy (Verified 02/16/21 19:08) effect to liver NSAIDS (Non-Steroidal Anti-Inflamma Allergy (Verified 02/16/21 19:08) Hives Penicillins Allergy (Verified 02/16/21 19:08) Hives sulfamethoxazole Allergy (Verified 02/16/21 19:08) Hives arthritis medications Allergy (Uncoded 02/16/21 19:08) effected the liver Prior records reviewed: Yes Past Medical History: - - Osteoporosis and HTN Surgical History: cholecystectomy, total hip arthroplasty - Bilateral., total knee arthroplasty - Left., - - D&C, [id number] 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 Lives: With Family Smoking Status: Never smoker Alcohol: None Drugs: None - Family History Maternal Family History: Reports: No pertinent history Paternal Family History: Reports: No pertinent history Review of Systems General: Denies: Chills, Fever, Sweats Eyes: Denies: Visual changes - bilaterally, Diplopia ENT: Denies: Rhinorrhea, Sore throat Cardiovascular: Denies: Chest pain, Palpitations Respiratory: Denies: Dyspnea, Cough, Dyspnea on exertion Gastrointestinal: Denies: Abdominal pain, Nausea, Vomiting, Diarrhea, Melena, Hematochezia Genitourinary: Denies: Dysuria, Hematuria, Frequency Musculoskeletal: Denies: Back pain, Extremity Pain Skin: Denies: Rash, Wounds Neurological: Denies: Headache, Weakness, Numbness Physical Exam Vital Signs/Narrative: Vital Signs Temp Pulse Resp BP Pulse Ox 02/16/21 19:38 98.4 F 90 18 137/54 H 99 02/16/21 19:37 99 02/16/21 19:03 98.4 F 95 17 134/64 H 98 Inital Vital Signs reviewed: Yes General: Well nourished, Cachectic, No Acute Distress Head: Normocephalic, Atraumatic Eyes: Perrl, EOMI ENT: Moist mucous membranes, No rhinorrhea Neck: Supple, Nontender Cardiovascular: Regular rate, Regular rhythm, No murmurs Respiratory: No distress, CTA bilaterally, Chest nontender Abdomen: Soft, Nontender, Nondistended, Normal bowel sounds Back: Nontender, Normal Inspection Extremities: Nontender, No edema Skin: Normal color, No rash, - - Large sacral decubitus ulcer without drainage. Neurological: Alert, Oriented x3, Cranial nerves II-XII grossly intact, Normal Strength, Normal Sensation Psychological: Normal affect, Normal Mood Diagnostic/Tx/Re-eval Chest X-Ray - ED: 1 View, Read by ED Physician, Read by Radiologist, Normal Clinical Impression(s) from Imaging Studies Chest X-Ray 02/16/21 19:12 IMPRESSION: No acute radiographic abnormalities. Electronically Signed: Edy Cedeno MD at 20:08 EDT Tel , Service support , Laboratory Data 02/16/21 02/16/21 02/16/21 19:18 19:18 19:18 WBC 17.0 H RBC 3.78 L Hgb 8.8 L Hct 31.1 L MCV 82.3 MCH 23.3 L MCHC 28.3 L RDW Std Deviation 51.7 H RDW Coeff of Bailey 17.4 H Plt Count 790 H* MPV 9.3 Immature Gran % (Auto) 0.800 Neut % (Auto) 83.1 H Lymph % (Auto) 9.4 L [place] % (Auto) 5.9 Eos % (Auto) 0.4 Baso % (Auto) 0.4 Absolute Neuts (auto) 14.1 H Absolute Lymphs (auto) 1.59 Nucleated RBC % 0 Differential Comment SCANNED Diff Path Review May foll Platelet Estimate MKD INC PT Cancelled INR Cancelled APTT Cancelled Sodium 136 Potassium 3.5 Chloride 100 Carbon Dioxide 30.0 Anion Gap 6 BUN 11 Creatinine 0.63 Estim Creat Clear Calc 28.13 Est GFR (MDRD) Af Amer 117 Est GFR (MDRD) Non-Af 96 BUN/Creatinine Ratio 17.5 Glucose 107 H Lactic Acid Calcium 8.4 L Total Bilirubin 0.20 AST 10 L ALT 8 L Alkaline Phosphatase 135 H Troponin I < 0.015 Total Protein 7.1 Albumin 2.4 L Globulin 4.7 H Albumin/Globulin Ratio 0.5 L 02/16/21 02/16/21 19:18 20:34 WBC RBC Hgb Hct MCV MCH MCHC RDW Std Deviation RDW Coeff of Bailey Plt Count MPV Immature Gran % (Auto) Neut % (Auto) Lymph % (Auto) [place] % (Auto) Eos % (Auto) Baso % (Auto) Absolute Neuts (auto) Absolute Lymphs (auto) Nucleated RBC % Differential Comment Diff Path Review Platelet Estimate PT 41.0 H INR 4.4 H* APTT 74.9 H Sodium Potassium Chloride Carbon Dioxide Anion Gap BUN Creatinine Estim Creat Clear Calc Est GFR (MDRD) Af Amer Est GFR (MDRD) Non-Af BUN/Creatinine Ratio Glucose Lactic Acid 1.8 Calcium Total Bilirubin AST ALT Alkaline Phosphatase Troponin I Total Protein Albumin Globulin Albumin/Globulin Ratio - Rhythm Strip Rhythm Strip: Sinus Rhythm Rate: 78 Ectopy: None - EKG Initial EKG Interpretation: Sinus Rhythm - Normal sinus rhythm at 78 bpm. PACs, PVCs. KS interval 144 ms. QTC of [address] changes. - Medical Decision Making Patient appears well and nontoxic. Vital signs within normal limits. Patient h as a stage III-IV sacral decubitus ulcer present. Afebrile. Patient has an increase in her leukocytosis from 11.9-17,000 today. No lactic acidosis. Significant thrombocytosis. Supratherapeutic INR. Patient be given vancomycin. Patient was given fluid resuscitation. Given the patient's increase in white blood cell count as well as the wound care centers concern for her worsening decubitus ulcer she will be admitted for short course of IV antibiotics and further evaluation. Stable at time of admission. Impression: 1. Sacral decubitus ulcer 2. Leukocytosis 3. Supratherapeutic INR ED Disposition - Plan for ED Patient: Disposition: Home or Assisted Living
[2021-02-16 20:51] LABS: Partial Thromboplast Time 74.9 Seconds (24.1-36.2)
[2021-02-16 20:56] LABS: International Normalized Ratio 4.4
--- NOTE | 2021-02-16 21:52 | PCM.HP.STD ---
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 Qualifiers: (4) DVT (deep venous thrombosis) Status: Chronic (5) Hyperlipidemia Status: Chronic (6) Hypertension Status: Chronic (7) Hypothyroidism Status: Chronic (8) Immobility Status: Chronic (9) Malnutrition Status: Chronic (10) Osteoarthritis of hips, bilateral Status: Chronic (11) Osteoporosis Status: Chronic (12) Stage III pressure ulcer Status: Acute Qualifiers: Comment: coccyx (13) Warfarin-induced coagulopathy Status: Chronic Comment: hx VT-chronic History of Present Illness Date of Admission: 02/16/21 Chief Complaint: abnormal labs The patient is a 85 year old F significant history of hypothyroidism; PE and DVT and left uwaeu-zme-gybv amputation who presents emergency department because of abnormal labs. Patient has a sacral decubitus ulcer and follows up with the wound care. CBC done on 02/15/2021 showed a platelet count of 847,000. Her white counts was 11,900. Also reportedly her sacral decubitus ulcer is getting deeper and deeper so she was instructed to come to the emergency department. Past Medical History Past Medical History (Chronic Problems): Chronic Problems Amputation of left lower extremity (Chronic) Immobility (Chronic) Malnutrition (Chronic) Iron (Fe) deficiency anemia (Chronic) Osteoporosis (Chronic) Anemia (Chronic) Hypothyroidism (Chronic) Warfarin-induced coagulopathy (Chronic) hx VT-chronic Hypertension (Chronic) DVT (deep venous thrombosis) (Chronic) Hyperlipidemia (Chronic) Osteoarthritis of hips, bilateral (Chronic) Allergies amoxicillin [From Augmentin] Allergy (Verified 02/16/21 19:08) Hives azathioprine [From Imuran] Allergy (Verified 02/16/21 19:08) Hives ceftriaxone Allergy (Verified 02/16/21 19:08) Hives celecoxib Allergy (Verified 02/16/21 19:08) Hives clavulanic acid [From Augmentin] Allergy (Verified 02/16/21 19:08) Hives etodolac Allergy (Verified 02/16/21 19:08) Hives methotrexate Allergy (Verified 02/16/21 19:08) effect to liver NSAIDS (Non-Steroidal Anti-Inflamma Allergy (Verified 02/16/21 19:08) Hives Penicillins Allergy (Verified 04/02/21 19:08) Hives sulfamethoxazole Allergy (Verified 02/16/21 19:08) Hives arthritis medications Allergy (Uncoded 02/16/21 19:08) effected the liver Home Medications: Ambulatory Orders Medication Instructions Recorded Levothyroxine [Synthroid] 75 mcg PO DAILY 07/28/16 Simvastatin [Zocor] 20 mg PO QHS 07/28/16 Hydrocodone Bitart/Apap 5-325 1 tablet PO Q6H PRN PRN 01/25/18 [Nogal 5MG-325MG] Ferrous Sulfate 325 mg PO BID 05/25/19 Fluoxetine HCl 40 mg PO DAILY 05/25/19 Warfarin [Coumadin ([facility])] 1 mg PO DAILY 05/25/19 sodium hypochlorite 0.5 % solution 1 applic TOPICAL DAILY #473 ml 11/28/20 Pantoprazole Sodium [Protonix] 40 mg PO DAILY 02/16/21 Surgical History: cholecystectomy, total hip arthroplasty - Bilateral., total knee arthroplasty - Left., - - D&C, uwjjp-[id number]-[id number] 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 Psychiatric History: No pertinent psych hx [employer]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 Lives: With Family Smoking Status: Never smoker Alcohol: None Drugs: None - *Family History Maternal History Items: Diabetes Paternal History Items: - - Denies knowledge of paternal medical history Review of Systems Constitutional: Denies: Chills, Fever, Weight Change HEENT: Denies: Head Aches, Sinus Congestion, Sinus Drainage Cardiovascular: Denies: Chest Pain, Palpitations Respiratory: Denies: Cough, Shortness of breath at rest, Sputum production Gastrointestinal: Denies: Abdominal Pain, Nausea, Vomiting Genitourinary: Denies: Dysuria Musculoskeletal: Denies: Joint Pain, Joint Tenderness Skin: Denies: Rash, Wounds Neurological: Denies: Numbness, Tingling, Focal weakness Psychiatric: Denies: Anxiety, Depression, Homicidal Ideations, Suicidal Ideations Hematologic/ Lymphatic: Denies: Easy Bruising, Easy Bleeding VTE Information - Inpt Only VTE Present on Admission: No VTE Mechan Device Prophylaxis: None VTE Pharm Prophylaxis ordered?: No Reason prophylaxis not ordered:: Treatment Not Indicated - INR supratherapeutic Patient Problems: Active and Suspected Problems Stage III pressure ulcer (Acute) coccyx - Physical Exam Vitals/I&O's: Vital Signs Temp Pulse Resp BP Pulse Ox 98.4 F 78 15 118/53 L 98 02/16/21 21:37 02/16/21 21:37 02/16/21 21:37 02/16/21 21:37 02/16/21 21:37 Oxygen Delivery Method Room Air Weight: 41.8 kg Body Mass Index (BMI) 15.7 Intake and Output for Last 24 Hours 02/14/21 02/15/21 02/16/21 23:59 23:59 23:59 Intake Total 500 / 500 Balance 500 / 500 General: Alert, Oriented x3, Cooperative HEENT: Atraumatic, PERRLA, EOMI, Normocephalic Neck: Supple, No JVD, Negative Carotid Bruits Lungs: Clear to auscultation, Normal air movement Cardiovascular: Regular rate, No murmurs Abdomen: Bowel Sounds Present, Soft, Non Tender Extremities: No edema, Capillary Refill Less than 3 Seconds, - - Left hmvcy-fva-lelb amputation Skin: Ulcer/ Wound - Pressure ulcer to sacrococcygeal area with tunneling Musculoskeletal: No Tenderness to Palpation of Joints or Extremities, Cachexia Neurological: Cranial nerves II-XII grossly intact Psych/Mental Status: Normal Affect, Appropriate Laboratory Results 02/16/21 19:18: WBC 17.0 H, RBC 3.78 L, Hgb 8.8 L, Hct 31.1 L, MCV 82.3, MCH 23.3 L, MCHC 28.3 L, RDW Std Deviation 51.7 H, RDW Coeff of Bailey 17.4 H, Plt Count 790 H*, MPV 9.3, Immature Gran % (Auto) 0.800, Neut % (Auto) 83.1 H, Lymph % (Auto) 9.4 L, [place] % (Auto) 5.9, Eos % (Auto) 0.4, Baso % (Auto) 0.4, Absolute Neuts (auto) 14.1 H, Absolute Lymphs (auto) 1.59, Nucleated RBC % 0, Differential Comment SCANNED, Diff Path Review May jennifer, Platelet Estimate MKD INC 02/16/21 19:18: PT Cancelled, INR Cancelled, APTT Cancelled 02/16/21 19:18: Sodium 136, Potassium 3.5, Chloride 100, Carbon Dioxide 30.0, Anion Gap 6, BUN 11, Creatinine 0.63, Estim Creat Clear Calc 28.13, Est GFR (MDRD) Af Amer 117, Est GFR (MDRD) Non-Af 96, BUN/Creatinine Ratio 17.5, Glucose 107 H, Calcium 8.4 L, Total Bilirubin 0.20, AST 10 L, ALT 8 L, Alkaline Phosphatase 135 H, Troponin I < 0.015, Total Protein 7.1, Albumin 2.4 L, Globulin 4.7 H, Albumin/Globulin Ratio 0.5 L 02/16/21 19:18: Lactic Acid 1.8 02/16/21 20:34: PT 41.0 H, INR 4.4 H*, APTT 74.9 H Current Medications Vancomycin HCl 750 mg/ Sodium (Chloride) 265 mls @ 250 mls/hr IV X1 ONE Stop: 02/16/21 22:28 Assessment/Plan All Active Problems Stage III pressure ulcer (Acute) The patient is a 85 year old F significant history of hypothyroidism and left dclod-rvy-rajz amputation who presents emergency department because of abnormal labs; and with progression of sacral decubitus ulcer. Blood dyscrasia Patient with acute on chronic thrombocytosis. Review of labs shows that on 02/15/2021 platelet count was 847,000 and on the day of presentation 02/16/2021 platelet count was 790,000. At baseline her platelet count has been from 4 54,000 to 6 79,000. Her hemoglobin on presentation was 8.8. Her hemoglobin is about her baseline. We will get JAK2 and peripheral blood smear. Sacral decubitus ulcer Stage III to IV Review of records sacral wound culture on 11/24/2020 was remarkable for Staphylococcus warneri; Enterococcus faecalis and Proteus Mirabalis. Mild frazier pus with mild erythema. Nontender although white count is elevated cannot definitely say that it is infected. 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 Will de-escalate to clindamycin. Will order ESR and CRP. If ESR and CRP is not elevated consider DC escalating antibiotics or completely discontinuing antibiotics. Home Nogal continued Dunking solution and wet-to-dry dressing on sacral ulcer. Wound care consult. Elevated INR. INR on presentation was 4.4. Hold home Coumadin Trend. Severe protein calorie malnutrition BMI of 14.9. Home Ensure Enlive; continued. DVT prophylaxis INR is supratherapeutic. Inpatient E&M: [id number] Init Hosp L3
[2021-02-16] MEDS: 0.9% Normal Saline 1,000 ML 75 ML IV (23:07)
--- NOTE | 2021-02-16 23:09 | PCM.RX.CS ---
Consult Pharmacy has been consulted to manage selected antiobiotic: Vancomycin Type of Consult: New start Suspected Infection: Skin/Soft tissue Prior Doses of Antibiotics Received/Current Regimen: Medications Vancomycin HCl () 500 mg in 100 mls @ 100 mls/hr IV Q24H JANETT Discontinued Medications Vancomycin HCl 750 mg/ Sodium (Chloride) 265 mls @ 250 mls/hr IV X1 ONE Stop: 02/16/21 22:28 Last Admin: 02/16/21 21:59 Dose: 250 mls/hr Labs: Sodium 136 mmol/L (136-145) 02/16/21 19:18 Potassium 3.5 mmol/L (3.5-5.1) 02/16/21 19:18 Chloride 100 mmol/L (98-107) 02/16/21 19:18 Carbon Dioxide 30.0 mmol/L (21.0-32.0) 02/16/21 19:18 Anion Gap 6 (5-15) 02/16/21 19:18 BUN 11 mg/dL (7-18) 02/16/21 19:18 Creatinine 0.63 mg/dL (0.55-1.02) 02/16/21 19:18 Est GFR (MDRD) Af Amer 117 mL/min (>60) 02/16/21 19:18 Est GFR (MDRD) Non-Af 96 mL/min (>60) 02/16/21 19:18 BUN/Creatinine Ratio 17.5 RATIO (10-20) 02/16/21 19:18 Glucose 107 mg/dL (74-106) H 02/16/21 19:18 Weight used for dosin.3 kg Estimated Creatinine Clearance: 28.1 Goal Trough: 15-20 mcg/mL Pharmacy Plan for Drug Dosing: Pharmacy Service will continue to monitor and adjust dosing as required. Follow-Up Labs: Trough Vancomycin Labs to be done on [date and time ordered]: 02/18/21 @5167
[2021-02-16 23:19] LABS: Erythrocyte Sedimentation Rate 58 mm/hr (0-30)
[2021-02-17 00:21] LABS: Mucous, Urine 0 SEEN /hpf (<or=2+)
[2021-02-17 00:26] LABS: Color, Urine Yellow (Yellow); Glucose, Dipstick Normal (Normal); Ketone-Dipstick Negative (Negative); Leukocyte Esterase-Dipstick 500 /ul (Negative); Nitrite-Dipstick Negative (Negative); Occult Blood-Urine 25 /ul (Negative); Protein-Dipstick Negative (Negative); Urine Bilirubin Dipstick Negative (Negative); Urine Clarity Clear (Clear); Urine Urobilinogen Normal (Normal)
[2021-02-17] MEDS: HYDROcodone Bitartrate/Apap 5/325 Tablet PO ×2 (00:27→09:37)
[2021-02-17] MEDS: Atorvastatin Calcium 10 MG Tablet PO ×2 (00:30→21:01)
[2021-02-17] MEDS: Ferrous Sulfate 325 MG Tablet PO ×3 (00:31→15:55)
[2021-02-17] MEDS: DAKIN'S SOL HALF STRENGTH (=0.25%) 1 APPLIC TOPICAL ×2 (00:32→04:10)
[2021-02-17 00:57] LABS: Bacteria RARE /hpf (None Seen); Red Blood Cells-Urine 0-5 SEEN /hpf (0-5); Squamous Epithelial Cells - UA 0-5 SEEN /hpf (5-10); White Blood Cells 5-10 SEEN /hpf (0-5)
[2021-02-17] MEDS: Menthol/Lanolin/Calamine/Znox 113 GM Tube 1 APPLIC TOPICAL ×3 (04:19→21:01)
[2021-02-17 04:23] VITALS: BP 114/56; PULSE 64; RESP 18; TEMP 36.7; O2SAT 100
[2021-02-17] MEDS: Levothyroxine 75 MCG Tablet PO (05:36)
[2021-02-17 07:00] LABS: Absolute Lymphocyte Count 1.66 X10^3/uL (0.83-4.51); Absolute Neutrophil Count 7.3 X10^3/uL (2.0-7.7); Basophil# 0.05 X10^3/uL; Basophil% 0.5 % (0-1); Eosinophil# 0.14 X10^3/uL; Eosinophils% 1.4 % (0-5); Hematocrit 24.9 % (37-47); Hemoglobin 7.1 g/dL (12.0-15.0); Lymphocyte # 1.66 X10^3/ul (4.0); Lymphocyte % 16.9 % (19-41); Mean Corp Hgb Conc 28.5 g/dL (32-36); Mean Corpuscular Hgb 23.4 pg (27.0-32.0); Mean Corpuscular Volume 81.9 fL (81-99); Mean Platelet Vol. 8.6 fl (6.2-12.0); Monocyte# 0.64 X10^3/uL; Monocyte% 6.5 % (0-10); NRBC Flagged by Analyzer 0 % (0-5); Neutrophil # 7.25 X10^3/uL (2.7-7.7); Neutrophil % 73.9 % (47-70); Platelet Count 633 K/mm3 (150-450); RBC Distribution Width CV 17.5 % (11.6-14.6); RBC Distribution Width SD 52.2 fl (35.1-43.9); Red Blood Count 3.04 M/mm3 (4.2-5.4); White Blood Count 9.8 K/mm3 (4.4-11.0)
[2021-02-17 07:09] LABS: Prothrombin Time (Protime)PT. 45.5 SECONDS (11.7-14.9)
[2021-02-17 07:23] LABS: Anion Gap 7 (5-15); BUN 9 mg/dL (7-18); BUN/Creat Ratio 17.3 RATIO (10-20); Calcium,Total 7.2 mg/dL (8.5-10.1); Chloride 106 mmol/L (98-107); Creatinine, Serum 0.52 mg/dL (0.55-1.02); EST Glomerular Filtration Rate 120 mL/min (>60); Est Glom Filt Rate - Afr Amer 145 mL/min (>60); Estimated Creatinine Clearance 26.45 ml/min; Glucose 106 mg/dL (74-106); Potassium 3.2 mmol/L (3.5-5.1); Sodium Level 140 mmol/L (136-145)
[2021-02-17 09:22] VITALS: BP 103/87; PULSE 66; RESP 16; TEMP 36.9; O2SAT 100
[2021-02-17] MEDS: Pantoprazole Sodium 40 MG Tablet PO (09:25)
[2021-02-17] MEDS: FLUoxetine 20 MG Capsule 40 MG PO (09:25)
[2021-02-17 10:41] VITALS: O2SAT 100
[2021-02-17] MEDS: 0.9% Normal Saline 1,000 ML 75 ML IV (11:10)
--- NOTE | 2021-02-17 12:04 | PN_ITS ---
Patient Problems: Active and Suspected Problems Stage III pressure ulcer (Acute) coccyx Subjective: Hurts all over. Vitals/I&O's: Vital Signs Temp Pulse Resp BP Pulse Ox 36.9 C 66 16 103/87 H 100 02/17/21 09:22 02/17/21 09:22 02/17/21 09:22 02/17/21 09:22 02/17/21 10:41 Oxygen Delivery Method Room Air Weight: 39.3 kg Body Mass Index (BMI) 14.8 Intake and Output for Last 24 Hours 02/15/21 02/16/21 02/17/21 23:59 23:59 23:59 Intake Total 815 / 815 1084.00 / 1084.00 Balance 815 / 815 1084.00 / 1084.00 General: Alert, No apparent distress HEENT: Atraumatic, Normocephalic Oral: Moist Mucosa, No Gingival or Mucosal Lesions/ Ulcerations Neck: No Nodes, Thyroid Normal Size and Texture Lungs: Clear to auscultation, Normal air movement, No rhonchi, No wheeze, No rales Cardiovascular: Regular rate, Regular Rhythm, Normal S1, Normal S2 Abdomen: Bowel Sounds Present, Soft, Non Tender, Non-Distended, No Hepato- splenomegaly Extremities: - - s/p AKA on left Skin: - - stage III sacral wound, going under skin, unable to visualize bone. Psych/Mental Status: Normal Affect, Appropriate Microbiology Past 72 Hours 02/17/21 04:30 Wound - Sacral Gram Stain - Final Laboratory Results 02/16/21 00:10: Urine Color Yellow, Urine Clarity Clear, Urine pH 6.0, Ur Specific [place] 1.020, Urine Protein Negative, Urine Glucose (UA) Normal, Urine Ketones Negative, Urine Occult Blood 25 H, Urine Nitrite Negative, Urine Bilirubin Negative, Urine Urobilinogen Normal, Ur Leukocyte Esterase 500 H, Urine RBC 0-5 SEEN, Urine WBC 5-10 SEEN, Ur Squamous Epith Cells 0-5 SEEN, Urine Bacteria RARE, Urine Mucus 0 SEEN 02/16/21 19:18: WBC 17.0 H, RBC 3.78 L, Hgb 8.8 L, Hct 31.1 L, MCV 82.3, MCH 23.3 L, MCHC 28.3 L, RDW Std Deviation 51.7 H, RDW Coeff of Bailey 17.4 H, Plt Count 790 H*, MPV 9.3, Immature Gran % (Auto) 0.800, Neut % (Auto) 83.1 H, Lymph % (Auto) 9.4 L, Crenshaw % (Auto) 5.9, Eos % (Auto) 0.4, Baso % (Auto) 0.4, Absolute Neuts (auto) 14.1 H, Absolute Lymphs (auto) 1.59, Nucleated RBC % 0, Differential Comment SCANNED, Diff Path Review March jennifer, Platelet Estimate MKD INC 02/16/21 19:18: PT Cancelled, INR Cancelled, APTT Cancelled 02/16/21 19:18: Sodium 136, Potassium 3.5, Chloride 100, Carbon Dioxide 30.0, Anion Gap 6, BUN 11, Creatinine 0.63, Estim Creat Clear Calc 28.13, Est GFR (MDRD) Af Amer 117, Est GFR (MDRD) Non-Af 96, BUN/Creatinine Ratio 17.5, Glucose 107 H, Calcium 8.4 L, Total Bilirubin 0.20, AST 10 L, ALT 8 L, Alkaline Phosphatase 135 H, Troponin I < 0.015, Total Protein 7.1, Albumin 2.4 L, Globulin 4.7 H, Albumin/Globulin Ratio 0.5 L 02/16/21 19:18: Lactic Acid 1.8 02/16/21 19:18: Miscellaneous Test Pending 02/16/21 19:18: ESR 58 H 02/16/21 19:18: C-React Prot Ext Range 127.00 H 02/16/21 20:34: PT 41.0 H, INR 4.4 H*, APTT 74.9 H 02/17/21 06:38: WBC 9.8, RBC 3.04 L, Hgb 7.1 L, Hct 24.9 L, MCV 81.9, MCH 23.4 L , MCHC 28.5 L, RDW Std Deviation 52.2 H, RDW Coeff of Bailey 17.5 H, Plt Count 633 H, MPV 8.6, Immature Gran % (Auto) 0.800, Neut % (Auto) 73.9 H, Lymph % (Auto) 16.9 L, Crenshaw % (Auto) 6.5, Eos % (Auto) 1.4, Baso % (Auto) 0.5, Absolute Neuts (auto) 7.3, Absolute Lymphs (auto) 1.66, Nucleated RBC % 0 02/17/21 06:38: PT 45.5 H, INR 5.0 H* 02/17/21 06:38: Sodium 140, Potassium 3.2 L, Chloride 106, Carbon Dioxide 27.0, Anion Gap 7, BUN 9, Creatinine 0.52 L, Estim Creat Clear Calc 26.45, Est GFR (MDRD) Af Amer 145, Est GFR (MDRD) Non-Af 120, BUN/Creatinine Ratio 17.3, Glucose 106, Calcium 7.2 L 02/17/21 06:38: JAK2 Mutation Pending, JAK2 Mutation (PCR) Pending Current Medications Acetaminophen (Acetaminophen 325 Mg Tablet) 650 mg PO Q6H PRN PRN PRN Reason: Pain Score 1-10/Temp > 100.7 F Hydrocodone Bitart/Acetaminophen (Hydrocodone Bitartrate/Apap 5/325 Tablet) 1 tablet PO Q6H PRN PRN PRN Reason: PAIN 1-10 Last Admin: 02/17/21 09:37 Dose: 1 tablet Documented by: Atorvastatin Calcium (Atorvastatin Calcium 10 Mg Tablet) 10 mg PO QHS [facility] Last Admin: 02/17/21 00:30 Dose: 10 mg Documented by: Calamine/Phenol (Menthol/Lanolin/Calamine/Znox 113 Gm Tube) 1 applic TOPICAL BID [facility]; Protocol Last Admin: 02/17/21 10:55 Dose: 1 applic Documented by: Ferrous Sulfate (Ferrous Sulfate 325 Mg Tablet) 325 mg PO BID@1200,1700 [facility] Last Admin: 02/17/21 00:31 Dose: 325 mg Documented by: Fluoxetine HCl (Fluoxetine 20 Mg Capsule) 40 mg PO DAILY [facility] Last Admin: 02/17/21 09:25 Dose: 40 mg Documented by: Sodium Chloride () 1,000 mls @ 75 mls/hr IV .[id number] [facility] Last Admin: 02/17/21 11:10 Dose: 75 mls/hr Documented by: Sodium Chloride () 250 mls @ 15 mls/hr IV .[id number] PRN PRN Reason: Saline Flush Vancomycin IV Pharmacy to Dose (1 each/ Sodium Chloride) 500 mls @ 250 mls/hr IV PRN PRN; Protocol PRN Reason: Rx to Dose Vancomycin HCl () 500 mg in 100 mls @ 100 mls/hr IV Q24H [facility] Ertapenem 1 gm/ Sodium (Chloride) 60 mls @ 100 mls/hr IV Q24 [facility] Last Infusion: 02/17/21 06:09 Dose: Infused Documented by: Levothyroxine Sodium (Levothyroxine 75 Mcg Tablet) 75 mcg PO DAILY@0600 [facility] Last Admin: 02/17/21 05:36 Dose: 75 mcg Documented by: Melatonin (Melatonin 3 Mg Tablet) 3 mg PO QHS PRN PRN PRN Reason: INSOMNIA Nutritional Formula (Nutritional Supplement (Jerry) Packet) 1 packet PO BIDCM [facility] Nutritional Formula (Lactose Free) (Ensure Enlive 120 Ml Liquid) 120 ml PO 4X/DAY [facility] Last Admin: 02/17/21 09:25 Dose: 120 ml Documented by: Ondansetron HCl (Ondansetron 4 Mg/2 Ml Vial) 4 mg IV Q8H PRN PRN PRN Reason: NAUSEA/VOMITING Pantoprazole Sodium (Pantoprazole Sodium 40 Mg Tablet) 40 mg PO DAILY [facility] Last Admin: 02/17/21 09:25 Dose: 40 mg Documented by: Sodium Chloride (0.9% Saline Lock 10 Ml Syringe) 10 - 40 ml IV UD PRN PRN Reason: SALINE FLUSH Sodium Hypochlorite (Dakin's Chanel Half Strength (=0.25%)) 1 applic TOPICAL DAILY [facility]; Protocol Last Admin: 02/17/21 04:10 Dose: 1 applic Documented by: STROKE Vital Signs/Narrative: Vital Signs Temp Pulse Resp BP Pulse Ox 02/17/21 10:41 100 02/17/21 09:22 36.9 C 66 16 103/87 H 100 Medical Necessity - Tobacco Use Smoking Status: Never smoker Tobacco Use: Non-smoker Assessment/Plan All Active Problems Stage III pressure ulcer (Acute) 1. sacral wound at minimum a stage III complicated by debility, malnutrition concern for infection on vanc and ertapenem check MRI to eval for osteomyelitis wound care follow up cultures 2. moderate protein calorie malnutrition complicates wound healing supplements nutrition. 3. h/o VTE INR supratherapeutic warfarin held for now 4. anemia monitor hold on TF at this time 5. thrombocytosis chronic monitor 6. VTE prophylaxis: not indicated as already anticoagulated. Inpatient E&M: 91611 Subs Hosp L2
--- NOTE | 2021-02-17 13:30 | CASEMGMT ---
CHRISTIANO ALLRED EXECUTIVE SECRETARY CM to room to meet with patient for initial transition planning/care coordination assessment. CHRISTIANO ALLRED introduced self and role at [facility].? Pt voices understanding and consents to assessment at this time.? Pt resting in bed in no distress at this time.? Pt is A/O at this time and answers all questions appropriately.? She did state for CHRISTIANO ALLRED to call her daughter, Marcia, for further information she was not able to remember. Call placed to Marcia at this time and the following information obtained from both pt and dtr. ? Care providers, pharmacy, and demographics verified/updated at this time. PCP: Dr Ayde Wheeler Specialists: Wound clinic-goes Q month Preferred Pharmacy: [facility] retail Insurance: [facility], [employer] Prescription Benefit:? Yes Living Will/HPOA:? Has both LW and Healthcare POA, who is her , Ben. LNOK: , Ben. Has 4 adult children Living Arrangements: Lives w/her in one-story home w/ramp entrance. Family live close and are supportive. helps her with bathing/dressing and helps do wound care but pt states, He's 89. It's hard for him to get around. /dtr do grocery shopping. Daughter, Marcia, manages meds/appts. They hire a private-duty caregiver who comes 2-3 x's a week--mostly on Mon/Thurs for 3-4 hours. They hire a cleaning lady. Transportation: DaughtersMarcia and Cielo. DME: ?Has the following DME:? hospital bed, lift chair, rails/grab bars, hand-held shower. electric Juliette w/c. ?Pt states no need for further DME at this time.? HHC/SNF: Hx TCU and [facility]. [facility] Per pt and daughter, Marcia, if pt would need IV atb's @ d/c, their preference is for pt to go TCU. If IV atb not needed and if therapy recommended, they they would prefer [facility] HHC. If no therapy recommended, then pt to go home w/family support. PLAN: ?Home vs Home w/HHC ([facility] is 1st preference) vs TCU dependent upon PT/OT evals and MRI results. PT/OT evals pending. MRI pending. Lesley MANSFIELD RN CM
[2021-02-17 15:51] VITALS: BP 98/52; PULSE 70; RESP 16; TEMP 36.6; O2SAT 100
[2021-02-17] MEDS: Acetaminophen 325 MG Tablet 650 MG PO ×2 (15:58→22:06)
[2021-02-17 20:50] VITALS: BP 98/50; PULSE 75; RESP 18; TEMP 36.7; O2SAT 98
[2021-02-17] MEDS: Vancomycin IV 500 MG/100 ML BAG 100 MG IV (21:01)
[2021-02-17] MEDS: MELATONIN 3 MG TABLET PO (22:07)
[2021-02-18] MEDS: 0.9% Normal Saline 1,000 ML 75 ML IV ×2 (00:55→15:23)
[2021-02-18 03:28] VITALS: BP 116/50; PULSE 67; RESP 18; TEMP 36.7; O2SAT 97
[2021-02-18] MEDS: Levothyroxine 75 MCG Tablet PO (05:04)
[2021-02-18 05:51] LABS: International Normalized Ratio 3.8; Prothrombin Time (Protime)PT. 36.3 SECONDS (11.7-14.9)
[2021-02-18 06:43] VITALS: O2SAT 96
[2021-02-18 07:33] LABS: Absolute Neutrophil Count 8.8 X10^3/uL (2.0-7.7); Basophil# 0.05 X10^3/uL; Basophil% 0.4 % (0-1); Eosinophil# 0.13 X10^3/uL; Eosinophils% 1.1 % (0-5); Hematocrit 25.8 % (37-47); Hemoglobin 7.5 g/dL (12.0-15.0); Lymphocyte % 15.5 % (19-41); Mean Corp Hgb Conc 29.1 g/dL (32-36); Mean Corpuscular Hgb 23.7 pg (27.0-32.0); Mean Corpuscular Volume 81.4 fL (81-99); Monocyte# 0.74 X10^3/uL; Monocyte% 6.4 % (0-10); NRBC Flagged by Analyzer 0 % (0-5); Neutrophil # 8.82 X10^3/uL (2.7-7.7); Platelet Count 662 K/mm3 (150-450); RBC Distribution Width CV 17.5 % (11.6-14.6); RBC Distribution Width SD 51.3 fl (35.1-43.9); Red Blood Count 3.17 M/mm3 (4.2-5.4); White Blood Count 11.6 K/mm3 (4.4-11.0)
[2021-02-18 07:38] LABS: Anion Gap 4 (5-15); BUN 14 mg/dL (7-18); BUN/Creat Ratio 26.8 RATIO (10-20); Calcium,Total 7.6 mg/dL (8.5-10.1); Chloride 107 mmol/L (98-107); Creatinine, Serum 0.52 mg/dL (0.55-1.02); EST Glomerular Filtration Rate 119 mL/min (>60); Est Glom Filt Rate - Afr Amer 144 mL/min (>60); Estimated Creatinine Clearance 26.45 ml/min; Glucose 94 mg/dL (74-106); Potassium 3.8 mmol/L (3.5-5.1); Sodium Level 139 mmol/L (136-145)
[2021-02-18 09:27] VITALS: BP 123/67; PULSE 78; RESP 18; TEMP 36.8; O2SAT 98
[2021-02-18] MEDS: HYDROcodone Bitartrate/Apap 5/325 Tablet PO (09:35)
[2021-02-18] MEDS: DAKIN'S SOL HALF STRENGTH (=0.25%) 1 APPLIC TOPICAL (09:41)
[2021-02-18] MEDS: Menthol/Lanolin/Calamine/Znox 113 GM Tube 1 APPLIC TOPICAL ×2 (09:41→21:49)
[2021-02-18] MEDS: FLUoxetine 20 MG Capsule 40 MG PO (09:45)
[2021-02-18] MEDS: Pantoprazole Sodium 40 MG Tablet PO (09:46)
--- NOTE | 2021-02-18 10:57 | PCM.PN.HOSP ---
Patient Problems: Active and Suspected Problems Stage III pressure ulcer (Acute) coccyx Subjective: Still hurts all over. Complains of being anxious. Vitals/I&O's: Vital Signs Temp Pulse Resp BP Pulse Ox 36.8 C 78 18 123/67 H 98 02/18/21 09:27 02/18/21 09:27 02/18/21 09:27 02/18/21 09:27 02/18/21 09:27 Oxygen Delivery Method Room Air Weight: 39.3 kg Body Mass Index (BMI) 14.8 Intake and Output for Last 24 Hours 02/16/21 02/17/21 02/18/21 23:59 23:59 23:59 Intake Total 815 / 815 2272.75 / 2272.75 277.5 / 277.5 Output Total 325 / 325 900 / 900 Balance 815 / 815 1947.75 / 1947.75 -622.5 / -622.5 General: Alert, - - yelling in pain while being adjusted by RN HEENT: Atraumatic, Normocephalic Oral: Moist Mucosa, No Gingival or Mucosal Lesions/ Ulcerations Neck: No Nodes, Thyroid Normal Size and Texture Lungs: Clear to auscultation, Normal air movement, No rhonchi, No wheeze, No rales Cardiovascular: Regular rate, Regular Rhythm, Normal S1, Normal S2 Abdomen: Bowel Sounds Present, Soft, Non Tender, Non-Distended Extremities: No edema, - - left AKA Psych/Mental Status: Agitated, Anxious Microbiology Past 72 Hours 02/17/21 04:30 Wound - Sacral Gram Stain - Final 02/17/21 04:30 Wound - Sacral Wound Culture - Preliminary Staphylococcus species Gram positive nestor 02/16/21 00:10 Urine, Catheterized Urine Culture - Preliminary Culture exhibits no growth. Laboratory Results 02/18/21 05:26: PT 36.3 H, INR 3.8 02/18/21 05:26: WBC 11.6 H, RBC 3.17 L, Hgb 7.5 L, Hct 25.8 L, MCV 81.4, MCH 23.7 L, MCHC 29.1 L, RDW Std Deviation 51.3 H, RDW Coeff of Bailey 17.5 H, Plt Count 662 H, MPV 9.0, Immature Gran % (Auto) 0.600, Neut % (Auto) 76.0 H, Lymph % (Auto) 15.5 L, Burt % (Auto) 6.4, Eos % (Auto) 1.1, Baso % (Auto) 0.4, Absolute Neuts (auto) 8.8 H, Absolute Lymphs (auto) 1.80, Nucleated RBC % 0 02/18/21 05:26: Sodium 139, Potassium 3.8, Chloride 107, Carbon Dioxide 28.0, Anion Gap 4 L, BUN 14, Creatinine 0.52 L, Estim Creat Clear Calc 26.45, Est GFR (MDRD) Af Amer 144, Est GFR (MDRD) Non-Af 119, BUN/Creatinine Ratio 26.8 H, Glucose 94, Calcium 7.6 L Current Medications Acetaminophen (Acetaminophen 325 Mg Tablet) 650 mg PO Q6H PRN PRN PRN Reason: Pain Score 1-10/Temp > 100.7 F Last Admin: 02/17/21 22:06 Dose: 650 mg Documented by: Hydrocodone Bitart/Acetaminophen (Hydrocodone Bitartrate/Apap 5/325 Tablet) 1 tablet PO Q6H PRN PRN PRN Reason: PAIN 1-10 Last Admin: 02/18/21 09:35 Dose: 1 tablet Documented by: Atorvastatin Calcium (Atorvastatin Calcium 10 Mg Tablet) 10 mg PO QHS [facility] Last Admin: 02/17/21 21:01 Dose: 10 mg Documented by: Calamine/Phenol (Menthol/Lanolin/Calamine/Znox 113 Gm Tube) 1 applic TOPICAL BID [facility]; Protocol Last Admin: 02/18/21 09:41 Dose: 1 applic Documented by: Ferrous Sulfate (Ferrous Sulfate 325 Mg Tablet) 325 mg PO BID@1200,1700 [facility] Last Admin: 02/17/21 15:55 Dose: 325 mg Documented by: Fluoxetine HCl (Fluoxetine 20 Mg Capsule) 40 mg PO DAILY [facility] Last Admin: 02/18/21 09:45 Dose: 40 mg Documented by: Sodium Chloride () 1,000 mls @ 75 mls/hr IV .[id number] [facility] Last Admin: 02/18/21 00:55 Dose: 75 mls/hr Documented by: Sodium Chloride () 250 mls @ 15 mls/hr IV .[id number] PRN PRN Reason: Saline Flush Vancomycin IV Pharmacy to Dose (1 each/ Sodium Chloride) 500 mls @ 250 mls/hr IV PRN PRN; Protocol PRN Reason: Rx to Dose Vancomycin HCl () 500 mg in 100 mls @ 100 mls/hr IV Q24H [facility] Last Infusion: 02/17/21 22:01 Dose: Infused Documented by: Ertapenem 1 gm/ Sodium (Chloride) 60 mls @ 100 mls/hr IV Q24 [facility] Last Infusion: 02/18/21 10:11 Dose: Infused Documented by: Levothyroxine Sodium (Levothyroxine 75 Mcg Tablet) 75 mcg PO DAILY@0600 [facility] Last Admin: 02/18/21 05:04 Dose: 75 mcg Documented by: Melatonin (Melatonin 3 Mg Tablet) 3 mg PO QHS PRN PRN PRN Reason: INSOMNIA Last Admin: 02/17/21 22:07 Dose: 3 mg Documented by: Nutritional Formula (Nutritional Supplement (Jerry) Packet) 1 packet PO BIDCM [facility] Last Admin: 02/18/21 09:20 Dose: 1 packet Documented by: Nutritional Formula (Lactose Free) (Ensure Enlive 120 Ml Liquid) 120 ml PO 4X/DAY [facility] Last Admin: 02/18/21 09:43 Dose: 120 ml Documented by: Ondansetron HCl (Ondansetron 4 Mg/2 Ml Vial) 4 mg IV Q8H PRN PRN PRN Reason: NAUSEA/VOMITING Pantoprazole Sodium (Pantoprazole Sodium 40 Mg Tablet) 40 mg PO DAILY [facility] Last Admin: 02/18/21 09:46 Dose: 40 mg Documented by: Sodium Chloride (0.9% Saline Lock 10 Ml Syringe) 10 - 40 ml IV UD PRN PRN Reason: SALINE FLUSH Sodium Hypochlorite (Dakin's Chanel Half Strength (=0.25%)) 1 applic TOPICAL DAILY [facility]; Protocol Last Admin: 02/18/21 09:41 Dose: 1 applic Documented by: STROKE Vital Signs/Narrative: Vital Signs Temp Pulse Resp BP Pulse Ox 02/18/21 09:27 36.8 C 78 18 123/67 H 98 Medical Necessity - Tobacco Use Smoking Status: Never smoker Tobacco Use: Non-smoker Assessment/Plan All Active Problems Stage III pressure ulcer (Acute) 85 yo female presents with abnormal labs with thrombocytosis, but this is chronic. Patient was admitted for concern for infected sacral wound. 1. sacral wound at minimum a stage III complicated by debility, malnutrition concern for infection on vanc and ertapenem check MRI to eval for osteomyelitis wound care wound culture showing S. species and GPR consult ID If + osteomyelitis, may need to consider PRS consultation. 2. moderate protein calorie malnutrition complicates wound healing supplements nutrition consultation 3. h/o VTE INR still supratherapeutic, but trending down. warfarin held for now 4. anemia stable monitor hold on transfusion at this time 5. thrombocytosis chronic monitor 6. VTE prophylaxis: not indicated as already anticoagulated. 7. Disposition: pending MRI and what further steps would be necessary (group home IV abx, surgery, etc.) 8. Poor performance status Karnofsky score 40, but likely closer to 30 pt too anxious to discuss code status at this time, so will keep full code. Did discuss with patient the high likelihood of futility in CPR in such a frail patient Recommended palliative care to follow for symptom control given her medical complexity and poor performance status. Inpatient E&M: 66863 Subs Hosp L2
[2021-02-18] MEDS: Ferrous Sulfate 325 MG Tablet PO ×2 (13:25→18:21)
[2021-02-18 15:18] VITALS: BP 113/52; PULSE 75; RESP 18; TEMP 37.1; O2SAT 100
[2021-02-18] MEDS: Acetaminophen 325 MG Tablet 650 MG PO ×2 (15:23→21:53)
[2021-02-18 21:39] LABS: Vancomycin, Trough Level 6.5 ug/mL (5.0-15.0)
[2021-02-18] MEDS: Vancomycin IV 500 MG/100 ML BAG 100 MG IV (21:48)
[2021-02-18] MEDS: Atorvastatin Calcium 10 MG Tablet PO (21:49)
[2021-02-18] MEDS: MELATONIN 3 MG TABLET PO (21:54)
[2021-02-18 22:00] VITALS: BP 127/81; PULSE 78; RESP 18; TEMP 36.5; O2SAT 100
--- NOTE | 2021-02-18 22:11 | PCM.RX.CS ---
Consult Pharmacy has been consulted to manage selected antiobiotic: Vancomycin Type of Consult: Follow-up Suspected Infection: Skin/Soft tissue Prior Doses of Antibiotics Received/Current Regimen: Medications Vancomycin HCl () 500 mg in 100 mls @ 100 mls/hr IV Q24H JANETT Stop: 02/18/21 23:00 Last Admin: 02/18/21 21:48 Dose: 100 mls/hr Vancomycin HCl () 500 mg in 100 mls @ 100 mls/hr IV Q12H JANETT Labs: Sodium 139 mmol/L (136-145) 02/18/21 05:26 Potassium 3.8 mmol/L (3.5-5.1) 02/18/21 05:26 Chloride 107 mmol/L (98-107) 02/18/21 05:26 Carbon Dioxide 28.0 mmol/L (21.0-32.0) 02/18/21 05:26 Anion Gap 4 (5-15) L 02/18/21 05:26 BUN 14 mg/dL (7-18) 02/18/21 05:26 Creatinine 0.52 mg/dL (0.55-1.02) L 02/18/21 05:26 Est GFR (MDRD) Af Amer 144 mL/min (>60) 02/18/21 05:26 Est GFR (MDRD) Non-Af 119 mL/min (>60) 02/18/21 05:26 BUN/Creatinine Ratio 26.8 RATIO (10-20) H 02/18/21 05:26 Glucose 94 mg/dL (74-106) 02/18/21 05:26 Vancomycin Trough 6.5 ug/mL (5.0-15.0) 02/18/21 21:08 Microbiology: Microbiology 02/17/21 04:30 Wound - Sacral Gram Stain - Final 02/17/21 04:30 Wound - Sacral Wound Culture - Preliminary Staphylococcus species Gram positive nestor 02/16/21 00:10 Urine, Catheterized Urine Culture - Preliminary Culture exhibits no growth. Weight used for dosin.3 kg Estimated Creatinine Clearance: 50.5 Goal Trough: 15-20 mcg/mL Pharmacy Plan for Drug Dosing: Vancomycin trough level of 6.5 was below target. Will increase frequency to 500mg q12h, and re-draw trough prior to 4th dose. Pharmacy Service will continue to monitor and adjust dosing as required. Follow-Up Labs: Trough Vancomycin Labs to be done on [date and time ordered]: 02/20/21 @8217
[2021-02-19 02:35] VITALS: BP 142/68; PULSE 74; RESP 18; TEMP 36.6; O2SAT 96
[2021-02-19] MEDS: 0.9% Normal Saline 1,000 ML 75 ML IV (05:11)
[2021-02-19] MEDS: Levothyroxine 75 MCG Tablet PO (05:12)
[2021-02-19 06:42] LABS: Absolute Lymphocyte Count 1.77 X10^3/uL (0.83-4.51); Absolute Neutrophil Count 8.5 X10^3/uL (2.0-7.7); Basophil# 0.05 X10^3/uL; Basophil% 0.4 % (0-1); Eosinophil# 0.13 X10^3/uL; Eosinophils% 1.2 % (0-5); Hematocrit 24.7 % (37-47); Hemoglobin 7.2 g/dL (12.0-15.0); Lymphocyte # 1.77 X10^3/ul (4.0); Lymphocyte % 15.8 % (19-41); Mean Corp Hgb Conc 29.1 g/dL (32-36); Mean Corpuscular Hgb 23.7 pg (27.0-32.0); Mean Corpuscular Volume 81.3 fL (81-99); Mean Platelet Vol. 8.6 fl (6.2-12.0); Monocyte# 0.69 X10^3/uL; Monocyte% 6.2 % (0-10); NRBC Flagged by Analyzer 0 % (0-5); Neutrophil # 8.47 X10^3/uL (2.7-7.7); Neutrophil % 75.6 % (47-70); Platelet Count 692 K/mm3 (150-450); RBC Distribution Width CV 17.8 % (11.6-14.6); RBC Distribution Width SD 52.6 fl (35.1-43.9); Red Blood Count 3.04 M/mm3 (4.2-5.4); White Blood Count 11.2 K/mm3 (4.4-11.0)
[2021-02-19 06:51] LABS: International Normalized Ratio 2.5; Prothrombin Time (Protime)PT. 26.5 SECONDS (11.7-14.9)
[2021-02-19 07:08] LABS: Anion Gap 5 (5-15); BUN 9 mg/dL (7-18); BUN/Creat Ratio 22.3 RATIO (10-20); Calcium,Total 7.5 mg/dL (8.5-10.1); Chloride 108 mmol/L (98-107); EST Glomerular Filtration Rate 160 mL/min (>60); Est Glom Filt Rate - Afr Amer 194 mL/min (>60); Estimated Creatinine Clearance 26.45 ml/min; Glucose 78 mg/dL (74-106); Potassium 3.8 mmol/L (3.5-5.1); Sodium Level 142 mmol/L (136-145)
[2021-02-19 08:21] VITALS: BP 123/50; PULSE 75; RESP 18; TEMP 36.6; O2SAT 96
--- NOTE | 2021-02-19 08:27 | NURSING ---
wound photo: sacrum
[2021-02-19] MEDS: Pantoprazole Sodium 40 MG Tablet PO (08:31)
[2021-02-19] MEDS: FLUoxetine 20 MG Capsule 40 MG PO (08:31)
[2021-02-19] MEDS: HYDROcodone Bitartrate/Apap 5/325 Tablet PO ×2 (08:31→15:17)
[2021-02-19] MEDS: DAKIN'S SOL HALF STRENGTH (=0.25%) 1 APPLIC TOPICAL (08:33)
--- NOTE | 2021-02-19 09:00 | MRI_ITS ---
STUDY: MR PELVIS WITHOUT CONTRAST (ATTENTION SACRUM) REASON FOR EXAM: Sacral wound. TECHNIQUE: Standardized fat and water weighted pulse sequences were obtained in all 3 orthogonal planes. COMPARISON: Radiographs 01/06/2020, CT of the pelvis 05/25/2019. FINDINGS: There is a wound at the dorsal aspect of the lower sacrum/coccyx without evidence of bone edema/osseous destruction to indicate osteomyelitis (T2 sagittal images 14-16). There is chronic compression deformity of the fifth lumbar vertebral body There is a fluid collection in the subcutis adipose space posterior to the right gluteal musculature (T2 axial images 1-4), not included in the [id number] and present also on the CT in 2018. The fluid collection measures approximately 2.3 cm in AP dimension and at least 5.2 cm in transverse dimension. Normal sacral ala and sacroiliac joints. There is artifact from bilateral hip arthroplasty. MRI/Pelvis (Routine) IMPRESSION: No demonstrated sacral/coccygeal osteomyelitis. Chronic fluid collection in the subcutis adipose space posterior to the right gluteal musculature. Electronically Signed: Demond Crowe MD at 11:30 EDT Tel , Service support ,
[2021-02-19 09:37] VITALS: O2SAT 97
[2021-02-19] MEDS: Vancomycin IV 500 MG/100 ML BAG 100 MG IV (10:45)
[2021-02-19] MEDS: Menthol/Lanolin/Calamine/Znox 113 GM Tube 1 APPLIC TOPICAL (10:49)
[2021-02-19] MEDS: 0.9% Saline Lock 10 ML Syringe IV (10:49)
[2021-02-19 12:17] LABS: Pathologist Review Reviewed
--- NOTE | 2021-02-19 13:17 | CON.PCM_ITS ---
Problem List (1) Stage III pressure ulcer Status: Acute Qualifiers: Comment: coccyx Reason for Consult: infected ulcer Consulted by: Dr. Anderson History of Present Illness: The patient is a 85 year old F with chronic sacral ulcer, follows at wound center monthly, presented with high platelets, concern for worsening sacral ulcer. Admitted on vanc/erta. Daughter reports no recent abx. Pt with some pain at the site, no fever. Full ROS performed and neg except as noted above. - Medical History Past Medical History (Chronic Problems): Chronic Problems Amputation of left lower extremity (Chronic) Immobility (Chronic) Malnutrition (Chronic) Iron (Fe) deficiency anemia (Chronic) Osteoporosis (Chronic) Anemia (Chronic) Hypothyroidism (Chronic) Warfarin-induced coagulopathy (Chronic) hx VT-chronic Hypertension (Chronic) DVT (deep venous thrombosis) (Chronic) Hyperlipidemia (Chronic) Osteoarthritis of hips, bilateral (Chronic) Allergies/Adverse Reactions: Allergies amoxicillin [From Augmentin] Allergy (Verified 02/16/21 19:08) Hives azathioprine [From Imuran] Allergy (Verified 02/16/21 19:08) Hives ceftriaxone Allergy (Verified 02/16/21 19:08) Hives celecoxib Allergy (Verified 02/16/21 19:08) Hives clavulanic acid [From Augmentin] Allergy (Verified 02/16/21 19:08) Hives etodolac Allergy (Verified 02/16/21 19:08) Hives methotrexate Allergy (Verified 02/16/21 19:08) effect to liver NSAIDS (Non-Steroidal Anti-Inflamma Allergy (Verified 02/16/21 19:08) Hives Penicillins Allergy (Verified 02/16/21 19:08) Hives sulfamethoxazole Allergy (Verified 02/16/21 19:08) Hives arthritis medications Allergy (Uncoded 02/16/21 19:08) effected the liver Home Medications: Ambulatory Orders Medication Instructions Recorded Levothyroxine [Synthroid] 75 mcg PO DAILY 07/28/16 Simvastatin [Zocor] 20 mg PO QHS 07/28/16 Hydrocodone Bitart/Apap 5-325 1 tablet PO Q6H PRN PRN 01/25/18 [[place] 5MG-325MG] Ferrous Sulfate 325 mg PO BID 05/25/19 Fluoxetine HCl 40 mg PO DAILY 05/25/19 Warfarin [Coumadin ([facility])] 1 mg PO DAILY 05/25/19 sodium hypochlorite 0.5 % solution 1 applic TOPICAL DAILY #473 ml 11/28/20 Pantoprazole Sodium [Protonix] 40 mg PO DAILY 02/16/21 - Social History Tobacco Use: non-smoker Vital Signs Temp Pulse Resp BP Pulse Ox 97.9 F 75 18 123/50 H 97 02/19/21 08:21 02/19/21 08:21 02/19/21 08:21 02/19/21 08:21 02/19/21 09:37 Oxygen Delivery Method Room Air Weight: 39.3 kg Body Mass Index (BMI) 14.8 Microbiology Past 72 Hours 02/17/21 04:30 Gram Stain - Final Wound - Sacral Wound Culture - Preliminary Staphylococcus warneri Gram positive nestor 02/16/21 00:10 Urine Culture - Final Urine, Catheterized Culture exhibits no growth. 02/16/21 19:18 Blood Culture - Preliminary Blood Culture (Wb) - Right Forearm No growth in 48 hours. 02/16/21 20:15 Blood Culture - Preliminary Blood Culture (Wb) - Right Hand No growth in 48 hours. Laboratory Tests Past 24 Hrs 02/16/21 02/18/21 02/19/21 19:18 21:08 05:50 WBC RBC Hgb Hct MCV MCH MCHC RDW Std Deviation RDW Coeff of Bailey Plt Count MPV Immature Gran % (Auto) Neut % (Auto) Lymph % (Auto) [place] % (Auto) Eos % (Auto) Baso % (Auto) Absolute Neuts (auto) Absolute Lymphs (auto) Nucleated RBC % Diff Path Review Reviewed PT 26.5 H INR 2.5 Sodium Potassium Chloride Carbon Dioxide Anion Gap BUN Creatinine Estim Creat Clear Calc Est GFR (MDRD) Af Amer Est GFR (MDRD) Non-Af BUN/Creatinine Ratio Glucose Calcium Vancomycin Trough 6.5 02/19/21 02/19/21 05:50 05:50 WBC 11.2 H RBC 3.04 L Hgb 7.2 L Hct 24.7 L MCV 81.3 MCH 23.7 L MCHC 29.1 L RDW Std Deviation 52.6 H RDW Coeff of Bailey 17.8 H Plt Count 692 H MPV 8.6 Immature Gran % (Auto) 0.800 Neut % (Auto) 75.6 H Lymph % (Auto) 15.8 L [place] % (Auto) 6.2 Eos % (Auto) 1.2 Baso % (Auto) 0.4 Absolute Neuts (auto) 8.5 H Absolute Lymphs (auto) 1.77 Nucleated RBC % 0 Diff Path Review PT INR Sodium 142 Potassium 3.8 Chloride 108 H Carbon Dioxide 29.0 Anion Gap 5 BUN 9 Creatinine 0.40 L Estim Creat Clear Calc 26.45 Est GFR (MDRD) Af Amer 194 Est GFR (MDRD) Non-Af 160 BUN/Creatinine Ratio 22.3 H Glucose 78 Calcium 7.5 L Vancomycin Trough - Other Studies Radiology: [] reviewed Other Studies: [] Route of nutrition/ use of supplements: [] Nutritional Intake: [] IV Site: [] Mejia Catheter: [] - Physical Exam General: Alert, Cooperative, No apparent distress, - - cachectic HEENT: Atraumatic, PERRLA, EOMI Neck: Supple, No Nodes Lungs: Clear to auscultation, Normal air movement Cardiovascular: Regular rate, Regular Rhythm Abdomen: Soft, Non Tender, Non-Distended Extremities: No edema, - - L AKA Skin: Ulcer/ Wound - reviewed photo IV Site: Peripheral, without redness Musculoskeletal: No Tenderness to Palpation of Joints or Extremities Neurological: Cranial nerves II-XII grossly intact - Assessment/Plan Antibiotics: [] Assessment/Plan: [] Active and Suspected Problems Stage III pressure ulcer (Acute) coccyx sacral infected ulcer - wound cx with CoNS, GPR. MRI showed no osteo. Ok for home with wound center followup on 5 days more of doxy/cipro/flagyl. Will follow as needed, thank you, d/w Dr. Rosado
[2021-02-19] MEDS: Ferrous Sulfate 325 MG Tablet PO (13:21)
[2021-02-19] MEDS: metroNIDAZOLE 500 MG Tablet PO (13:21)
--- NOTE | 2021-02-19 13:48 | CASEMGMT ---
CHRISTIANO CM in to pt room dtr Lakia at bedside. Pt has a private paid MANAGER INFORMATION that will resume bathing pt. Pt is I with dressing changes and they follow with the wound center monthly. Pt to be dc'd on oral antibiotics. Pt/dtr decline any needs at this time.
--- NOTE | 2021-02-19 13:58 | PCM.DC ---
- Discharge Diagnoses Current Active Problems: Current Active and Chronic Problems Stage III pressure ulcer (Acute) coccyx Amputation of left lower extremity (Chronic) Immobility (Chronic) Malnutrition (Chronic) Iron (Fe) deficiency anemia (Chronic) Osteoporosis (Chronic) Anemia (Chronic) Hypothyroidism (Chronic) Warfarin-induced coagulopathy (Chronic) hx VT-chronic Hypertension (Chronic) DVT (deep venous thrombosis) (Chronic) Hyperlipidemia (Chronic) Osteoarthritis of hips, bilateral (Chronic) You will use the following diet at home:: No restrictions Your food should be the consistency of: Regular Your liquids should be the consistency of: Regular/Thin Discharge Activity: - - return to prior activity level Weight Bearing Status: No weight bearing Allergies/Adverse Reactions: Allergies amoxicillin [From Augmentin] Allergy (Verified 02/16/21 19:08) Hives azathioprine [From Imuran] Allergy (Verified 02/16/21 19:08) Hives ceftriaxone Allergy (Verified 02/16/21 19:08) Hives celecoxib Allergy (Verified 02/16/21 19:08) Hives clavulanic acid [From Augmentin] Allergy (Verified 02/16/21 19:08) Hives etodolac Allergy (Verified 02/16/21 19:08) Hives methotrexate Allergy (Verified 02/16/21 19:08) effect to liver NSAIDS (Non-Steroidal Anti-Inflamma Allergy (Verified 02/16/21 19:08) Hives Penicillins Allergy (Verified 02/16/21 19:08) Hives sulfamethoxazole Allergy (Verified 02/16/21 19:08) Hives arthritis medications Allergy (Uncoded 02/16/21 19:08) effected the liver Medications to take at Discharge Levothyroxine [Synthroid] 75 mcg PO DAILY 07/28/16 Simvastatin [Zocor] 20 mg PO QHS 07/28/16 Hydrocodone Bitart/Apap 5-325 [[place] 5/325] 1 tablet PO Q6H PRN PRN 01/25/18 Ferrous Sulfate 325 mg PO BID 05/25/19 Fluoxetine HCl 40 mg PO DAILY 05/25/19 Warfarin [Coumadin] 1 mg PO DAILY 05/25/19 sodium hypochlorite 0.5 % solution 1 applic TOPICAL DAILY #473 ml 11/28/20 Pantoprazole Sodium [Protonix] 40 mg PO DAILY 02/16/21 Ciprofloxacin [Cipro] 500 mg PO BID #10 tablet 02/19/21 Doxycycline 100 mg PO BID #10 capsule 02/19/21 Sodium Hypochlorite [Dakins Solution 0.25% (1/2 Strength)] 1 applic TOPICAL DAILY bottle 02/19/21 metroNIDAZOLE [Flagyl] 500 mg PO TIDCM #15 tablet 02/19/21 The following prescriptions were given: Ciprofloxacin [Cipro] 500 mg PO BID #10 tablet Transmission Status: Received by [facility]/pharmacy #[id number] Doxycycline 100 mg PO BID #10 capsule Transmission Status: Received by [facility]/pharmacy #[id number] metroNIDAZOLE [Flagyl] 500 mg PO TIDCM #15 tablet Transmission Status: Received by [facility]/pharmacy #[id number] Primary Care Physician: Seferino Wheeler III, MD [Primary Care Provider] - Please follow up with your Primary Care Physician in: in 7 days get your INR checked Test Results: Test results from this visit will be discussed in further detail at your follow-up appointment, if applicable. Please Follow Up With: wound care When: in the next 7-10 days
[2021-02-19 15:13] VITALS: BP 108/46; PULSE 81; RESP 18; TEMP 36.6; O2SAT 100
--- NOTE | 2021-02-19 16:03 | CHAPLAIN ---
Type of Pastoral Visit _x__ Initial Visit ___ Follow-up Visit ___ On-call Visit ___ General Patient Visit ___ Spiritual Assessment ___ Family Conference ___ Bereavement ___ Rapid Response ___ Code Blue ___ Other (describe below) Pastoral Care Referral From _x__ Patient ___ Family ___ Nurse ___ Physician ___ Medical Grade Shoemaker ___ Orthotic Assistant ___ Other (describe below) Sacrament/Intervention _x__ Active listening ___ Anointing ___ Mandaen ___ Bereavement ___ Communion ___ Huma exploration ___ ___ Life review _x__ Prayer ___ Reconciliation ___ Sacrament of Sick ___ Supportive presence ___ Wedding ___ Other (describe below) Pastoral Comments daughter at bedside; pt is to be discharged; pt welcoming of support and prayer
--- NOTE | 2021-02-19 18:41 | DS.PCM_ITS ---
Discharge Date and Diagnosis - Problem List Patient Problems: Active and Suspected Problems Stage III pressure ulcer (Acute) coccyx Date of Admission: 02/16/21 Date of Discharge: 02/19/21 - Primary Discharge Diagnosis Acute Problems: Active Problems #1 sacral infected stage III pressure ulcer-secondary to coag negative staph and gram-positive rods #2 stage III pressure ulcer coccyx-chronic #3 severe protein and caloric malnutrition #4 chronic debility #5 supratherapeutic INR secondary to warfarin usage #6 osteoarthritis #7 essential hypertension #8 hyperlipidemia #9 chronic debility #10 chronic anemia-secondary to iron deficiency anemia from poor nutrition #11 hypokalemia #12 cognitive impairment-most likely from dementia - Secondary Discharge Diagnosis Chronic Problems: Chronic Problems Amputation of left lower extremity (Chronic) Immobility (Chronic) Malnutrition (Chronic) Iron (Fe) deficiency anemia (Chronic) Osteoporosis (Chronic) Anemia (Chronic) Hypothyroidism (Chronic) Warfarin-induced coagulopathy (Chronic) hx VT-chronic Hypertension (Chronic) DVT (deep venous thrombosis) (Chronic) Hyperlipidemia (Chronic) Osteoarthritis of hips, bilateral (Chronic) Hospital Course and Treatment Consultations 02/16/21 22:41 Consult: Onc/Wound/contaminated land consultant Routine Comment: Sacral decubitus ulcer Operations: None Procedures: None Summary of Care Provided: The patient is a 85 year old F who was seen in the emergency room at [facility] after being instructed to go there for evaluation of abnormal labs including an elevated white blood cell count and platelet count. Work-up in the emergency room included labs which showed an elevated white blood cell count and elevated platelet count, patient's sed rate was elevated, patient C- reactive protein was elevated. Patient was noted to be anemic. Chest x-ray showed no radiographic abnormality. Patient was lethargic and there was signs of cognitive impairment-this appeared to be chronic in nature however. There is noted to be a deep pressure wound over the patient's sacral area which was chronic in nature. Patient was admitted to [place] [id number] for an infected stage III pressure ulceration, she was placed on IV antibiotics, she underwent an MRI which showed no evidence of osteomyelitis. Patient was seen in consultation by infectious diseases, cultures from the patient's pressure ulceration grew out coag negative staph and gram-positive nestor. On 02/19/2021, patient was seen and examined: On examination she appeared frail and debilitated, she does not appear to be in any distress. There is signs of cognitive impairment. Vital signs as documented. Skin warm and dry and without overt rashes. Neck without JVD, thyroid appears normal, trachea is midline, neck is supple. Lungs clear, normal air movement was noted. Heart exam notable for regular rhythm, normal sounds and absence of murmurs, rubs or gallops. Abdomen unremarkable and without evidence of organomegaly, masses, or abdominal aortic enlargement, bowel sounds are present in all 4 quadrants, no abdominal tenderness was noted. Extremities nonedematous, no cyanosis was noted, no clubbing was noted. Neuro: Cranial nerves II through XII are grossly intact, no focal motor deficits were noted, sensation to light touch and pinprick is intact, motor exam 5/5 throughout. Psych: Patient is alert, she shows signs of cognitive impairment On 02/19/2021, patient was felt to be stable for discharge, her overall condition was poor and prognosis was poor due to multiple medical problems including chronic debility, chronic sacral pressure ulceration and malnutrition. I had a lengthy discussion with the patient's daughter prior to discharge-she was in the patient's room at the time of my examination and stated that her father was taking care of her mother but they could not get her mother to eat properly and they were doing the best they could taking care of the patient at home. Patient Problems: Active and Suspected Problems Stage III pressure ulcer (Acute) coccyx - Physical Exam Vitals/I&O's: Vital Signs Temp Pulse Resp BP Pulse Ox 97.9 F 81 18 108/46 L 100 02/19/21 15:13 02/19/21 15:13 02/19/21 15:13 02/19/21 15:13 02/19/21 15:13 Oxygen Delivery Method Room Air Weight: 39.3 kg Body Mass Index (BMI) 14.8 Intake and Output for Last 24 Hours 02/17/21 02/18/21 02/19/21 23:59 23:59 23:59 Intake Total 2272.75 / 2272.75 2277.5 / 2277.5 1410 / 1410 Output Total 325 / 325 1999 / 1999 400 / 400 Balance 1947.75 / 1947.75 277.5 / 277.5 1010 / 1010 Microbiology Past 72 Hours 02/17/21 04:30 Wound - Sacral Gram Stain - Final 02/17/21 04:30 Wound - Sacral Wound Culture - Preliminary Staphylococcus warneri Gram positive nestor 02/16/21 00:10 Urine, Catheterized Urine Culture - Final Culture exhibits no growth. 02/16/21 19:18 Blood Culture (Wb) - Right Forearm Blood Culture - Prel iminary No growth in 48 hours. 02/16/21 20:15 Blood Culture (Wb) - Right Hand Blood Culture - Preliminary No growth in 48 hours. Laboratory Results 02/16/21 19:18: Diff Path Review Reviewed 02/18/21 21:08: Vancomycin Trough 6.5 02/19/21 05:50: PT 26.5 H, INR 2.5 02/19/21 05:50: WBC 11.2 H, RBC 3.04 L, Hgb 7.2 L, Hct 24.7 L, MCV 81.3, MCH 23.7 L, MCHC 29.1 L, RDW Std Deviation 52.6 H, RDW Coeff of Bailey 17.8 H, Plt Count 692 H, MPV 8.6, Immature Gran % (Auto) 0.800, Neut % (Auto) 75.6 H, Lymph % (Auto) 15.8 L, [place] % (Auto) 6.2, Eos % (Auto) 1.2, Baso % (Auto) 0.4, [place] Neuts (auto) 8.5 H, Absolute Lymphs (auto) 1.77, Nucleated RBC % 0 02/19/21 05:50: Sodium 142, Potassium 3.8, Chloride 108 H, Carbon Dioxide 29.0, Anion Gap 5, BUN 9, Creatinine 0.40 L, Estim Creat Clear Calc 26.45, Est GFR (MDRD) Af Amer 194, Est GFR (MDRD) Non-Af 160, BUN/Creatinine Ratio 22.3 H, Glucose 78, Calcium 7.5 L Discharge Activity: - - return to prior activity level Weight Bearing Status: No weight bearing Home Medications: Medications to take at Discharge Levothyroxine [Synthroid] 75 mcg PO DAILY 07/28/16 Simvastatin [Zocor] 20 mg PO QHS 07/28/16 Hydrocodone Bitart/Apap 5-325 [[place] 5/325] 1 tablet PO Q6H PRN PRN 01/25/18 Ferrous Sulfate 325 mg PO BID 05/25/19 Fluoxetine HCl 40 mg PO DAILY 05/25/19 Warfarin [Coumadin] 1 mg PO DAILY 05/25/19 sodium hypochlorite 0.5 % solution 1 applic TOPICAL DAILY #473 ml 11/28/20 Pantoprazole Sodium [Protonix] 40 mg PO DAILY 02/16/21 Ciprofloxacin [Cipro] 500 mg PO BID #10 tablet 02/19/21 Doxycycline 100 mg PO BID #10 capsule 02/19/21 Sodium Hypochlorite [Dakins Solution 0.25% (1/2 Strength)] 1 applic TOPICAL DAILY bottle 02/19/21 metroNIDAZOLE [Flagyl] 500 mg PO TIDCM #15 tablet 02/19/21 Following Prescriptions Were Given to Patient: Ciprofloxacin [Cipro] 500 mg PO BID #10 tablet Transmission Status: Received by [facility]/pharmacy #[id number] Doxycycline 100 mg PO BID #10 capsule Transmission Status: Received by [facility]/pharmacy #[id number] metroNIDAZOLE [Flagyl] 500 mg PO TIDCM #15 tablet Transmission Status: Received by [facility]/pharmacy #[id number] Primary Care Physician: Seferino Wheeler III, MD [Primary Care Provider] - Please follow up with your Primary Care Physician in: in 7 days get your INR checked Please Follow Up With: wound care When: in the next 7-10 days Please Follow Up With: Seferino Wheeler III, MD When: 3 days Disposition: Home Minutes spent on discharge:: 32 Patient Condition:: Stable Medical Necessity - Tobacco Use Smoking Status: Never smoker Tobacco Use: Non-smoker Meaningful Use Info Meaningful Use Diagnoses (Choose all that apply): None applicable Inpatient E&M: 74091 Disch Hosp
--- NOTE | 2021-02-20 15:07 | CASEMGMT ---
RN CM Discharge Follow Up Phone Call: MONAE: Jose A Strata: 3 Call Date: 02/20/21 Discharge Date: 02/19/21 Time of Call: [id number] Duration: <1 min Admitting Dx: infected stage III sacral pressure ulcer RN CM attempted to complete follow up phone call after recent hospitalization. No answer and vm with no identification. No message left.
== END 2021-02-19 15:45 | disposition home or self-care (01) | DRG 592 ==
LOC: ED 20:20 → MS3 21:52
PROVIDERS: Admitting Provider Hospitalist; Emergency Provider Emergency Medicine; PCP Family Medicine; Visit Provider Internal Medicine
DX: L89.153 Pressure ulcer of sacral region, stage 3 (principal); E43 Unspecified severe protein-calorie malnutrition; Z68.1 Body mass index [BMI] 19.9 or less, adult; L02.415 Cutaneous abscess of right lower limb; I10 Essential (primary) hypertension; E87.6 Hypokalemia; M81.0 Age-related osteoporosis without current pathological fracture; I49.1 Atrial premature depolarization; I49.3 Ventricular premature depolarization; R79.1 Abnormal coagulation profile; T45.515A Adverse effect of anticoagulants, initial encounter; Y92.9 Unspecified place or not applicable; D50.9 Iron deficiency anemia, unspecified; E78.5 Hyperlipidemia, unspecified; M16.0 Bilateral primary osteoarthritis of hip; E03.9 Hypothyroidism, unspecified; F03.90 Unspecified dementia, unspecified severity, without behavioral disturbance, psychotic disturbance, mood disturbance, and anxiety; D47.3 Essential (hemorrhagic) thrombocythemia; Z86.718 Personal history of other venous thrombosis and embolism; Z86.711 Personal history of pulmonary embolism; Z89.612 Acquired absence of left leg above knee; Z79.899 Other long term (current) drug therapy; Z79.01 Long term (current) use of anticoagulants; Z86.14 Personal history of Methicillin resistant Staphylococcus aureus infection; Z74.09 Other reduced mobility; Z96.643 Presence of artificial hip joint, bilateral
CPT/HCPCS: 11042; 36415; 71045; 72195; 72220; 80048; 80053; 80202; 81001; 81270; 83605; 84134; 84484; 85025; 85610; 85652; 85730; 86140; 87040; 87070; 87077; 87086; 87186; 87205; 93005; 97162; 97166; 97802; 99285; J7030; J7050; A4216

== ENCOUNTER 2021-03-08 13:00 | Outpatient (RCR) | payer MEDICARE, OTHER, SELFPAY ==
[2021-02-15 00:30] VITALS: BP 95/37; PULSE 71; RESP 16; TEMP 36.2
[2021-02-15 13:10] VITALS: BP 110/41; PULSE 70; RESP 20; TEMP 36.7; BMI 17.7
[2021-02-15 13:15] VITALS: BP 110/41; PULSE 70; RESP 18; TEMP 36.8; BMI 17.7
--- NOTE | 2021-02-15 14:45 | RAD_ITS ---
STUDY: X-RAY - SACRUM/COCCYX REASON FOR EXAM: Female, 85 years old. COCCYX ULCER STAGE 3 TECHNIQUE: 3 view(s) of the sacrum and coccyx were obtained. COMPARISON: Comparison is made with prior study dated 01/06/2020. FINDINGS: There is degenerative arthrosis of the bilateral sacroiliac joints. There is demineralization of the sacral ala. Normal sacrococcygeal junction with a normal angulation. Normal coccygeal segments. Bilateral total hip replacement. Large amount of fecal material is seen in the colon. RAD/Sacrum-Coccyx min 2 Views IMPRESSION: The mineralization of the visualized osseous structures. Degenerative changes of the sacroiliac joints. Large amount of fecal material is seen in the colon. Bilateral hip replacement. Electronically Signed: Kiran Mi MD at 13:14 EDT , Service support ,
[2021-02-15 15:12] LABS: Erythrocyte Sedimentation Rate 57 mm/hr (0-30)
[2021-02-15 15:15] LABS: Absolute Lymphocyte Count 1.99 X10^3/uL (0.83-4.51); Absolute Neutrophil Count 8.9 X10^3/uL (2.0-7.7); Basophil# 0.06 X10^3/uL; Basophil% 0.5 % (0-1); Eosinophil# 0.09 X10^3/uL; Eosinophils% 0.8 % (0-5); Hematocrit 30.4 % (37-47); Hemoglobin 8.6 g/dL (12.0-15.0); Lymphocyte # 1.99 X10^3/ul (4.0); Lymphocyte % 16.7 % (19-41); Mean Corp Hgb Conc 28.3 g/dL (32-36); Mean Corpuscular Volume 81.3 fL (81-99); Mean Platelet Vol. 8.9 fl (6.2-12.0); Monocyte# 0.77 X10^3/uL; Monocyte% 6.5 % (0-10); NRBC Flagged by Analyzer 0 % (0-5); Neutrophil # 8.91 X10^3/uL (2.7-7.7); Neutrophil % 74.7 % (47-70); POSITIVE COUNT YES; RBC Distribution Width CV 17.3 % (11.6-14.6); RBC Distribution Width SD 51.4 fl (35.1-43.9); Red Blood Count 3.74 M/mm3 (4.2-5.4); White Blood Count 11.9 K/mm3 (4.4-11.0)
[2021-02-15 15:21] LABS: Differential Indicated SCAN CRITERIA MET; Platelet Count 847 K/mm3 (150-450)
[2021-02-15 15:57] LABS: Prealbumin 7.5 mg/dL (20.0-40.0)
[2021-02-15 16:03] LABS: Hypochromasia 1+; Platelet Estimate MKD INC (ADEQ); Red Cell Morphology N CYTIC NORMAL (NORM C&C)
--- NOTE | 2021-02-15 16:14 | PCM.WC.PN ---
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 Qualifiers: Code(s): S88.912A - Complete traumatic amputation of left lower leg, level unspecified, initial encounter (3) Hypertension Status: Chronic Code(s): I10 - Essential (primary) hypertension (4) Hypothyroidism Status: Chronic Code(s): E03.9 - Hypothyroidism, unspecified (5) Immobility Status: Chronic Code(s): Z74.09 - Other reduced mobility (6) Malnutrition Status: Chronic Code(s): E46 - Unspecified protein-calorie malnutrition (7) Osteoarthritis of hips, bilateral Status: Chronic Code(s): M16.0 - Bilateral primary osteoarthritis of hip Type of Wound Date of Service: 02/15/21 Chief Complaint: 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 She is currently on a complex wound care plan. She has had multiple wound care failures. Last seen here about 4 weeks ago, comes in monthly. They have been applying Moistened Silvercell with OptiFoam over top daily to twice daily depending on drainage/contamination. Wound culture from 08/24/20 postive for Staphylococcus simulans, Anaerobic cocci and Prevotella oralis. She was treated with Flagyl. No acute concerns at this time. She denies chills, fever otherwise feeling of unwell. Progress of Wound: stable, daughter does state that the wound seems somewhat deeper, no increase in drainage and denies any systemic signs of infection. Is following up with PCP with regard to her chronic mental status changes. - Physical Exam Vital Signs Temp Pulse Resp BP 98.2 F 70 18 110/41 L 02/15/21 13:15 02/15/21 13:15 02/15/21 13:15 02/15/21 13:15 General: Alert, Oriented x3, Cooperative, No apparent distress HEENT: Atraumatic Oral: Moist Mucosa Lungs: Clear to auscultation Cardiovascular: Regular rate Abdomen: Soft, Non Tender Extremities: No clubbing, No cyanosis, No edema, - - Left lower extremity amputation Skin: Ulcer/ Wound - See nursing documentation, slough and devitalized tissue present, no signs of obvious infection at this time. No redness, streaking, warmth, or purulent drainage Wound Measurements and Assessment - Nurse 1 - General Ulcer Measurement Start: 02/15/21 13:06 Freq: Status: Active Protocol: Activity Type Activity Date Activity User E-Sign Co-Sign Detail Recorded Client Recorded Date Recorded By Document 02/15/21 13:15 DL [id number] 02/15/21 13:21 DL 02/15/21 13:15 Wound Center Nurse 1 [Ulcer Assessment] #4 Sacrum -Current Size (cm) - Length 2 -Current Size (cm) - Width 1 -Current Size (cm) - Depth 1.2 -Total Square Cm 2 -Undermining/Tunneling Starts (O' 12 clock) -Undermining/Tunneling Ends (O'clock) 6 -Maximum Distance (cm) 1 -Exudate Amt Medium -Exudate Type Serosanguineous -Wound Margin Distinct, Outline Attached -Granulation Amt Large (67-100%) -Granulation Quality Red -Necrosis Amt Small (1-33%) -Necrotic Tissue Type Adherent Slough -Structure Exposed N/A -Texture (Alexus-wound Skin Appearance) Scarring -Moisture (Alexus-wound Skin Appearance No Abnormality ) -Color (Alexus-wound Skin Appearance) No Abnormality -Temperature (Alexus-wound Skin No Abnormality Appearance) (Pt Warm) -Tenderness on Palpation (Alexus-wound No Skin Appearance) -Ulcer Cleansing Rinsed/ Irrigated with Saline -Foul Odor after Cleansing No -Anesthetic Used 4% Lidocaine Solution - Nurse 2 - General Ulcer CM Notes Start: 02/15/21 13:06 Freq: Status: Active Protocol: Activity Type Activity Date Activity User E-Sign Co-Sign Detail Recorded Client Recorded Date Recorded By Document 02/15/21 13:32 MW [id number] 02/15/21 13:37 MW 02/15/21 13:32 Wound Center Nurse 2 [Procedure/Treatment] -Time 13:32 -Correct Patient Yes -Correct Side, Site, Position Yes -Correct Procedure Yes -Procedure Performed Yes -Type of Procedure Debridement -Clinical Debridement Subcutaneous -Tissue Removed Subcutaneous -Post Debridement (cm) - Length 2.0 -Post Debridement (cm) - Width 1.2 -Post Debridement (cm) - Depth 1.1 -Total Square (Post) (cm) 2.40 -Area of Debridement (cm) - Length 2.0 -Area of Debridement (cm) - Width 1.2 -Total Square (Area) (cm) 2.40 -Tunneling No -Undermining/Tunneling No -Circular Undermining No -Wound/Ulcer Outcome Not Healed -Ulcer Cleansing Rinsed/ Irrigated with Saline -Foul Odor after Cleansing No -Bioengineered Tissue No -Bleeding Controlled with Pressure -Offloading No -Treatment Response Procedure Tolerated Well -Debridement - Subq, 1st 20sq cm Yes [See Physician Procedure note for Specifics] Pain Scale: 0-10 Numeric [Pain] -Is Patient Pain Free? Yes - Nurse 3 - General Ulcer D/C NN Start: 02/15/21 13:06 Freq: Status: Active Protocol: Activity Type Activity Date Activity User E-Sign Co-Sign Detail Recorded Client Recorded Date Recorded By Document 02/15/21 13:46 MS [id number] 02/15/21 13:48 MS 02/15/21 13:46 Wound Care Nurse 3 [Wound Dressing] #4 Sacrum -Ulcer Cleansing Rinsed/ Irrigated with Saline -Foul Odor after Cleansing No -Primary Dressing Applied Silvercel -Other Covering opitifoam -Silvercel 1 Pain Scale: 0-10 Numeric [Pain] -Is Patient Pain Free? Yes - Visit Discharge [Visit Discharge Information] -Ambulatory Status Wheelchair Neurological: Neuro grossly intact Psych/Mental Status: Normal Affect, Appropriate, Alert and oriented to time, place, person, mood and affect Debridement Note Post-Debridement Measurements/Treatment - Nurse 2 - General Ulcer CM Notes Start: 02/15/21 13:06 Freq: Status: Active Protocol: Activity Type Activity Date Activity User E-Sign Co-Sign Detail Recorded Client Recorded Date Recorded By Document 02/15/21 13:32 MW [id number] 02/15/21 13:37 MW 02/15/21 13:32 Wound Center Nurse 2 #4 Sacrum -Time 13:32 -Correct Patient Yes -Correct Side, Site, Position Yes -Correct Procedure Yes -Procedure Performed Yes -Type of Procedure Debridement -Clinical Debridement Subcutaneous -Tissue Removed Subcutaneous -Post Debridement (cm) - Length 2.0 -Post Debridement (cm) - Width 1.2 -Post Debridement (cm) - Depth 1.1 -Total Square (Post) (cm) 2.40 -Area of Debridement (cm) - Length 2.0 -Area of Debridement (cm) - Width 1.2 -Total Square (Area) (cm) 2.40 -Tunneling No -Undermining/Tunneling No -Circular Undermining No -Wound/Ulcer Outcome Not Healed -Ulcer Cleansing Rinsed/ Irrigated with Saline -Foul Odor after Cleansing No -Bioengineered Tissue No -Bleeding Controlled with Pressure -Offloading No -Treatment Response Procedure Tolerated Well -Debridement - Subq, 1st 20sq cm Yes Pain Scale: 0-10 Numeric Is Patient Pain Free? Yes WC - Nurse 3 - General Ulcer D/C NN Start: 02/15/21 13:06 Freq: Status: Active Protocol: Activity Type Activity Date Activity User E-Sign Co-Sign Detail Recorded Client Recorded Date Recorded By Document 02/15/21 13:46 MS [id number] 02/15/21 13:48 MS 02/15/21 13:46 Wound Care Nurse 3 #4 Sacrum -Ulcer Cleansing Rinsed/ Irrigated with Saline -Foul Odor after Cleansing No -Primary Dressing Applied Silvercel -Other Covering opitifoam -Silvercel 1 Pain Scale: 0-10 Numeric Is Patient Pain Free? Yes WC - Visit Discharge Ambulatory Status Wheelchair Wound debrided: Stage III pressure injury of coccyx Laterality: Not Applicable Type of Debridement: Excisional debridement Anesthesia Used: 5% Lidocaine Gel Depth: in the subcutaneous layer Percentage of wound debrided: 100 Instrument Used: 5mm curette Tissue Removed: Slough and devitalized tissue Severity: Fat Layer Exposed Amount of bleeding with debridement: Mild Bleeding Controlled with: Pressure Patient tolerated procedure well Assessment/Plan Assessment: See above diagnoses Plan: Debridement done as documented above, procedure was well-tolerated. Dressing changes of Aquacel silver moistened change daily and OptiFoam. Because the wound is somewhat deeper, blood work will be rechecked today and imaging was ordered as well.Continue offloading, increased protein intake and exercise as tolerated. Their questions were answered and they were advised to call with any further questions or concerns. Continue with palliative wound care. Follow-up in a month per her request. This note was generated with Guestyation software. It may contain incorrect words, spelling, and punctuation that were not noted in checking the note before signing. [id number]: [id number] Angie subq tissue 20 sq cm/<
[2021-02-16 09:00] LABS: ALB/GLOB Ratio 0.5 RATIO (0.9-2.4); AST(SGOT) 12 U/L (15-37); Alanine Aminotransfer ALT/SGPT 7 U/L (13-56); Albumin, Serum 2.2 g/dL (3.2-5.0); Alkaline Phosphatase 127 U/L (45-117); Anion Gap 4 (5-15); BUN 8 mg/dL (7-18); BUN/Creat Ratio 15.1 RATIO (10-20); Calcium,Total 8.1 mg/dL (8.5-10.1); Chloride 101 mmol/L (98-107); Creatinine, Serum 0.53 mg/dL (0.55-1.02); EST Glomerular Filtration Rate 117 mL/min (>60); Est Glom Filt Rate - Afr Amer 142 mL/min (>60); Globulin 4.1 g/dL (2.2-4.2); Glucose 91 mg/dL (74-106); Potassium 3.9 mmol/L (3.5-5.1); Protein, Total 6.3 g/dL (6.4-8.2); Sodium Level 138 mmol/L (136-145)
[2021-02-16 11:24] LABS: Pathologist Review Reviewed
[2021-03-08 13:14] VITALS: BP 125/60; PULSE 77; RESP 16; TEMP 36.8; BMI 17.7
--- NOTE | 2021-03-08 14:00 | PN.PCM_ITS ---
(1) Stage III pressure ulcer Status: Acute Qualifiers: Code(s): L89.93 - Pressure ulcer of unspecified site, stage 3 Comment: coccyx (2) Amputation of left lower extremity Status: Chronic Qualifiers: Code(s): S88.912A - Complete traumatic amputation of left lower leg, level unspecified, initial encounter (3) Hypertension Status: Chronic Code(s): I10 - Essential (primary) hypertension (4) Hypothyroidism Status: Chronic Code(s): E03.9 - Hypothyroidism, unspecified (5) Immobility Status: Chronic Code(s): Z74.09 - Other reduced mobility (6) Malnutrition Status: Chronic Code(s): E46 - Unspecified protein-calorie malnutrition (7) Osteoarthritis of hips, bilateral Status: Chronic Code(s): M16.0 - Bilateral primary osteoarthritis of hip Type of Wound Date of Service: 03/08/21 Chief Complaint: 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 She is currently on a complex wound care plan. She has had multiple wound care failures. Last seen here about 4 weeks ago, comes in monthly. They have been applying Moistened Silvercell with OptiFoam over top daily to twice daily depending on drainage/contamination. Wound culture from 08/24/20 postive for Staphylococcus simulans, Anaerobic cocci and Prevotella oralis. She was treated with Flagyl. No acute concerns at this time. She denies chills, fever otherwise feeling of unwell. Progress of Wound: Patient was recently admitted to the hospital from 02-16-21 rough 02/19/2021 with infected stage III pressure ulcer of the sacrum with coag negative staph and gram-positive nestor, malnutrition, debility. There she was seen and had an elevated white count and ESR and CRP was elevated. An MRI was done at that time and was negative for osteomyelitis. She was treated with IV antibiotics and discharged home on Cipro, doxy, and Flagyl as recommended from infectious disease. The patient has completed these. Patient is with her daughter today who has noted a new open draining abscess on her right hip. Patient's daughter states that mainly at home her father takes care of the patient. However patient does have difficulty maintaining a healthy nutritional status and often does not eat. Daughter is contemplating hospice care. - Physical Exam Vital Signs Temp Pulse Resp BP 98.2 F 77 16 125/60 H 03/08/21 13:14 03/08/21 13:14 03/08/21 13:14 03/08/21 13:14 General: Alert, Oriented x3, Cooperative, No apparent distress HEENT: Atraumatic Oral: Moist Mucosa Lungs: Clear to auscultation Cardiovascular: Regular rate Extremities: No clubbing, No cyanosis, No edema, - - Left lower extremity amputation Skin: Ulcer/ Wound - See nursing documentation, slough and devitalized tissue present in the sacral ulcer, new abscess to right hip, large amount of purulent fluid, large amount of fluctuance present. No induration or surrounding erythema noted at this time Wound Measurements and Assessment WC - Nurse 1 - General Ulcer Measurement Start: 02/15/21 13:06 Freq: Status: Active Protocol: Activity Type Activity Date Activity User E-Sign Co-Sign Detail Recorded Client Recorded Date Recorded By Document 03/08/21 13:14 PA [id number] 03/08/21 13:28 MS 03/08/21 13:14 Wound Center Nurse 1 [Ulcer Assessment] #5 right hip -Current Size (cm) - Length 0.2 -Current Size (cm) - Width 0.2 -Current Size (cm) - Depth 1.8 -Total Square Cm 0.04 -Exudate Amt Large -Exudate Type Purulent -Wound Margin Distinct, Outline Attached -Texture (Alexus-wound Skin Appearance) No Abnormality -Moisture (Alexus-wound Skin Appearance No Abnormality ) -Color (Alexus-wound Skin Appearance) No Abnormality -Temperature (Alexus-wound Skin No Abnormality Appearance) (Pt Warm) -Foul Odor after Cleansing No -Anesthetic Used 4% Lidocaine Solution #4 Sacrum -Current Size (cm) - Length 1.8 -Current Size (cm) - Width 1.5 -Current Size (cm) - Depth 1 -Total Square Cm 2.70 -Undermining/Tunneling Yes -Undermining/Tunneling Starts (O' 12 clock) -Undermining/Tunneling Ends (O'clock) 5 -Maximum Distance (cm) 1.2 -Exudate Amt Medium -Exudate Type Serosanguineous -Wound Margin Distinct, Outline Attached -Granulation Amt Medium (34-66%) -Granulation Quality Richey -Slough/Fibrin Yes -Necrosis Amt Medium (34-66%) -Necrotic Tissue Type Adherent Slough -Texture (Alexus-wound Skin Appearance) No Abnormality -Moisture (Alexus-wound Skin Appearance No Abnormality ) -Color (Alexus-wound Skin Appearance) No Abnormality -Temperature (Alexus-wound Skin No Abnormality Appearance) (Pt Warm) -Tenderness on Palpation (Alexus-wound No Skin Appearance) -Anesthetic Used 4% Lidocaine Solution WC - Nurse 2 - General Ulcer CM Notes Start: 02/15/21 13:06 Freq: Status: Active Protocol: Activity Type Activity Date Activity User E-Sign Co-Sign Detail Recorded Client Recorded Date Recorded By Document 03/08/21 13:45 MW [id number] 03/08/21 13:50 MW 03/08/21 13:45 Wound Center Nurse 2 [Procedure/Treatment] #5 right hip -Time 13:46 -Correct Patient Yes -Correct Side, Site, Position Yes -Correct Procedure Yes -Procedure Performed Yes -Type of Procedure Debridement -Clinical Debridement Subcutaneous -Tissue Removed Subcutaneous -Post Debridement (cm) - Length 0.1 -Post Debridement (cm) - Width 0.1 -Post Debridement (cm) - Depth 2.5 -Total Square (Post) (cm) 0.01 -Area of Debridement (cm) - Length 0.1 -Area of Debridement (cm) - Width 0.1 -Total Square (Area) (cm) 0.01 -Tunneling No -Undermining/Tunneling No -Circular Undermining No -Wound/Ulcer Outcome Not Healed -Ulcer Cleansing Rinsed/ Irrigated with Saline -Foul Odor after Cleansing No -Bioengineered Tissue No -Bleeding Controlled with Pressure -Offloading No -Treatment Response Procedure Tolerated Well -Debridement - Subq, 1st 20sq cm Yes #4 Sacrum -Time 13:46 -Correct Patient Yes -Correct Side, Site, Position Yes -Correct Procedure Yes -Procedure Performed Yes -Type of Procedure Debridement -Clinical Debridement Subcutaneous -Tissue Removed Subcutaneous -Post Debridement (cm) - Length 2.5 -Post Debridement (cm) - Width 1.5 -Post Debridement (cm) - Depth 1.0 -Total Square (Post) (cm) 3.75 -Area of Debridement (cm) - Length 2.5 -Area of Debridement (cm) - Width 1.5 -Total Square (Area) (cm) 3.75 -Tunneling No -Undermining/Tunneling No -Circular Undermining No -Wound/Ulcer Outcome Not Healed -Ulcer Cleansing Rinsed/ Irrigated with Saline -Foul Odor after Cleansing No -Bioengineered Tissue No -Bleeding Controlled with Pressure -Offloading No -Treatment Response Procedure Tolerated Well -Debridement - Subq, 1st 20sq cm No [See Physician Procedure note for Specifics] Pain Scale: 0-10 Numeric [Pain] -Is Patient Pain Free? Yes Neurological: Neuro grossly intact Psych/Mental Status: Normal Affect, Appropriate, Alert and oriented to time, place, person, mood and affect Debridement Note Post-Debridement Measurements/Treatment WC - Nurse 2 - General Ulcer CM Notes Start: 02/15/21 13:06 Freq: Status: Active Protocol: Activity Type Activity Date Activity User E-Sign Co-Sign Detail Recorded Client Recorded Date Recorded By Document 02/15/21 13:32 MW [id number] 02/15/21 13:37 MW Document 03/08/21 13:45 MW [id number] 03/08/21 13:50 MW 02/15/21 03/08/21 13:32 13:45 Wound Center Nurse 2 #5 right hip -Time 13:46 -Correct Patient Yes -Correct Side, Site, Position Yes -Correct Procedure Yes -Procedure Performed Yes -Type of Procedure Debridement -Clinical Debridement Subcutaneous -Tissue Removed Subcutaneous -Post Debridement (cm) - Length 0.1 -Post Debridement (cm) - Width 0.1 -Post Debridement (cm) - Depth 2.5 -Total Square (Post) (cm) 0.01 -Area of Debridement (cm) - Length 0.1 -Area of Debridement (cm) - Width 0.1 -Total Square (Area) (cm) 0.01 -Tunneling No -Undermining/Tunneling No -Circular Undermining No -Wound/Ulcer Outcome Not Healed -Ulcer Cleansing Rinsed/ Irrigated with Saline -Foul Odor after Cleansing No -Bioengineered Tissue No -Bleeding Controlled with Pressure -Offloading No -Treatment Response Procedure Tolerated Well -Debridement - Subq, 1st 20sq cm Yes #4 Sacrum -Time 13:32 13:46 -Correct Patient Yes Yes -Correct Side, Site, Position Yes Yes -Correct Procedure Yes Yes -Procedure Performed Yes Yes -Type of Procedure Debridement Debridement -Clinical Debridement Subcutaneous Subcutaneous -Tissue Removed Subcutaneous Subcutaneous -Post Debridement (cm) - Length 2.0 2.5 -Post Debridement (cm) - Width 1.2 1.5 -Post Debridement (cm) - Depth 1.1 1.0 -Total Square (Post) (cm) 2.40 3.75 -Area of Debridement (cm) - Length 2.0 2.5 -Area of Debridement (cm) - Width 1.2 1.5 -Total Square (Area) (cm) 2.40 3.75 -Tunneling No No -Undermining/Tunneling No No -Circular Undermining No No -Wound/Ulcer Outcome Not Healed Not Healed -Ulcer Cleansing Rinsed/ Rinsed/ Irrigated with Irrigated with Saline Saline -Foul Odor after Cleansing No No -Bioengineered Tissue No No -Bleeding Controlled with Pressure Pressure -Offloading No No -Treatment Response Procedure Procedure Tolerated Well Tolerated Well -Debridement - Subq, 1st 20sq cm Yes No Pain Scale: 0-10 Numeric Is Patient Pain Free? Yes Yes - Nurse 3 - General Ulcer D/C NN Start: 02/15/21 13:06 Freq: Status: Active Protocol: Activity Type Activity Date Activity User E-Sign Co-Sign Detail Recorded Client Recorded Date Recorded By Document 02/15/21 13:46 MS [id number] 02/15/21 13:48 MS 02/15/21 13:46 Wound Care Nurse 3 #4 Sacrum -Ulcer Cleansing Rinsed/ Irrigated with Saline -Foul Odor after Cleansing No -Primary Dressing Applied Silvercel -Other Covering opitifoam -Silvercel 1 Pain Scale: 0-10 Numeric Is Patient Pain Free? Yes - Visit Discharge Ambulatory Status Wheelchair Wound debrided: Stage III pressure injury of the coccyx Type of Debridement: Excisional debridement Anesthesia Used: 5% Lidocaine Gel Depth: in the subcutaneous layer Percentage of wound debrided: 100 Instrument Used: 5mm curette Tissue Removed: Slough and devitalized tissue Severity: Fat Layer Exposed Amount of bleeding with debridement: Mild Bleeding Controlled with: Pressure Patient tolerated procedure well Assessment/Plan Clinical Impression(s) from Imaging Studies Sacrum and Coccyx X-Ray 02/15/21 14:45 IMPRESSION: The mineralization of the visualized osseous structures. Degenerative changes of the sacroiliac joints. Large amount of fecal material is seen in the colon. Bilateral hip replacement. Electronically Signed: Kiran Mi MD at 13:14 EDT , Service support , Active Problems Stage III pressure ulcer (Acute) coccyx Amputation of left lower extremity (Chronic) Immobility (Chronic) Malnutrition (Chronic) Hypothyroidism (Chronic) Hypertension (Chronic) Osteoarthritis of hips, bilateral (Chronic) Assessment: See above diagnoses Plan: Debridement done as documented above, procedure was well-tolerated. Dressing changes of Aquacel silver moistened change daily and OptiFoam. Continue offloading, increased protein intake and exercise as tolerated. Their questions were answered and they were advised to call with any further questions or concerns. Continue with palliative wound care, had an in-depth discussion that given the multiple comorbidities and severe malnutrition and chronic conditions, patient may benefit from hospice care. Daughter states that she will consider. In the meantime given the fact that she does have a new abscess on her right hip, an x-ray was ordered and patient instructed to continue with warm compresses and a referral was made to general surgery. However if they d ecide on hospice care the referral can be deferred. Wound cultures were collected from the abscess drainage. Follow-up in 2 months per her request. This note was generated with [employer] dictation software. It may contain incorrect words, spelling, and punctuation that were not noted in checking the note before signing. [id number]: [id number] Angie subq tissue 20 sq cm/<
--- NOTE | 2021-03-08 14:45 | RAD_ITS ---
STUDY: X-RAY - PELVIS AND RIGHT HIP REASON FOR EXAM: Female, 85 years old. R HIP ABSCESS TECHNIQUE: 3 views of the pelvis and hip. COMPARISON: None. FINDINGS: Large amount of fecal material is seen in the colon. There are atherosclerotic vascular calcifications of the pelvic arteries. The patient is status post right total hip replacement. There is demineralization of the visualized right femur. Soft tissue swelling. Status post left total hip replacement as well. RAD/HIP, UNI W/ Pelvis 2-3 Views IMPRESSION: Status post bilateral hip replacements. Large amount of fecal material is seen in the colon. Electronically Signed: Kiran Mi MD at 15:06 EDT , Service support ,
== END 2021-03-16 23:59 ==
LOC: WC 13:00
PROVIDERS: PCP Family Medicine; Referring Provider Nurse Practitioner Family; Visit Provider Nurse Practitioner Family
DX: L89.153 Pressure ulcer of sacral region, stage 3 (principal); L02.415 Cutaneous abscess of right lower limb; M16.0 Bilateral primary osteoarthritis of hip; I10 Essential (primary) hypertension; E03.9 Hypothyroidism, unspecified; Z74.09 Other reduced mobility; Z79.01 Long term (current) use of anticoagulants; Z79.899 Other long term (current) drug therapy; Z96.643 Presence of artificial hip joint, bilateral; Z89.612 Acquired absence of left leg above knee
CPT/HCPCS: 11042; 36415; 72220; 73502; 80053; 84134; 85025; 85652; 86140; 87070; 87075; 87077; 87186; 87205

== ENCOUNTER 2021-03-27 13:16 | Outpatient (RCR) | payer MEDICARE, OTHER, SELFPAY ==
[2021-03-08 14:11] VITALS: BMI 14.8
[2021-03-17 00:31] VITALS: BP 125/60; PULSE 77; RESP 16; TEMP 36.8
[2021-03-27 13:23] VITALS: BP 116/72; PULSE 85; RESP 16; TEMP 36.6; BMI 14.8
--- NOTE | 2021-03-27 15:08 | PN.PCM_ITS ---
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 She is currently on a complex wound care plan. She has had multiple wound care failures. Last seen here about 4 weeks ago, comes in monthly. They have been applying Moistened Silvercell with OptiFoam over top daily to twice daily depending on drainage/contamination. Wound culture from 08/24/20 postive for Staphylococcus simulans, Anaerobic cocci and Prevotella oralis. She was treated with Flagyl. No acute concerns at this time. She denies chills, fever otherwise feeling of unwell. Subjective Subjective No fevers, chills or night sweats. No change in the wounds. She is on palliative care. Poor appetite and intake. Denies pain. Objective Data Objective Data Vital Signs: Vital Signs Temp Pulse Resp BP 97.8 F 85 16 116/72 03/27/21 13:23 03/27/21 13:23 03/27/21 13:23 03/27/21 13:23 Oxygen Delivery Method Room Air Body Mass Index (BMI) 14.8 Assessment & Plan Assessment/Plan (1) Stage III pressure ulcer: QUALIFIERS: Pressure injury location: sacral region Qualified Code(s): L89.153 - Pressure ulcer of sacral region, stage 3 PLAN: Continue current dressing and will continue to have palliative care. She will follow up with her regular provider, Wilbur Gallagher NP, for her next visit in 1 month. Dtr will notify the wound care center if Fevers/Chills/purulent DC form the wounds or odor. Charges/Coding Visit Charges Office Visits / Consults: [id number] OV L2 Est Physical Exam Const alert and no apparent distress Nutritional Appearance: cachectic Skin Wounds: wounds noted Wound Narrative: She has chronic wounds on the R hip and the R sacrum. They have been present for a long time. She is not a candidate for surgery.....saw Dr. Zhu. Both wounds are clean with no purulent discharge and no periwound erythema. The wounds are currently stable and are being dressed with silvercel. there is some tunnelling and undermining. Debridement Note Debridement Note Post-Debridement Measurements and Additional Note: Post-Debridement Measurements/Treatment ROMI - Nurse 1 - General Ulcer Assessment Start: 03/27/21 13:23 Freq: Status: Active Protocol: TOM Activity Type Activity Date Activity User E-Sign Co-Sign Detail Recorded Client Recorded Date Recorded By Document 03/27/21 13:23 [facility] [id number] 03/27/21 13:33 [facility] 03/27/21 13:23 WC - Today's Visit Information Type of service Follow-up Visit (Physician/MANA[employer] ) Arrival Mode Wheelchair Transfer Assistance Manual Transfer Assist (Other) 2 max Accompanied by daughter Patient Identification Verified (Name & Yes ) Patient Requires Transmission-Based No Precautions Height and Weight Body Mass Index (BMI) 14.8 BMI Classification Underweight Vital Signs Temperature (97.8 F-99.1 F) 97.8 F Temperature Source Temporal Pulse Rate (60-100) 85 Pulse Location Monitor Respiratory Rate (12-18) 16 Respiratory rate source Observation Oxygen Delivery Method Room Air Blood Pressure (90/60-120/80) 116/72 Blood Pressure Mean (mm Hg) 86 Source Monitor Position Sitting Blood Pressure Location Left Arm History Since Last Visit- (Skip if this is Patient's initial visit) Have you changed medications since your No last visit? Any new allergies or adverse reactions No Had a fall/change in ADL's that may No increase risk of falls Signs or symptoms of abuse and/or No neglect since last visit Have you been in the hospital since your No last visit? Has dressing in place as prescribed Yes Has compression in place as prescribed N/A Has offloadiing in place as prescribed N/A Experienced any changes in pain level or No management ROMI - Nurse 1 - General Ulcer Measurement Start: 03/27/21 13:23 Freq: Status: Active Protocol: Activity Type Activity Date Activity User E-Sign Co-Sign Detail Recorded Client Recorded Date Recorded By Document 03/27/21 13:23 [facility] [id number] 03/27/21 13:33 [facility] 03/27/21 13:23 Wound Center Nurse 1 #5 right hip -Combined with other wound No -Current Size (cm) - Length 0.6 -Current Size (cm) - Width 1.1 -Current Size (cm) - Depth 3.7 -Total Square Cm 0.66 -Photo Taken No -Epithelialization None Present -Tunneling No -Undermining/Tunneling Yes -Undermining/Tunneling Starts (O'clock 12 ) -Undermining/Tunneling Ends (O'clock) 1 -Maximum Distance (cm) 3 -Circular Undermining No -Exudate Amt Medium -Exudate Type Serosanguineous -Wound Margin Distinct, Outline Attached -Granulation Amt Small (1-33%) -Granulation Quality Red -Slough/Fibrin Yes -Necrosis Amt Large (67-100%) -Necrotic Tissue Type Adherent Slough -Texture (Alexus-wound Skin Appearance) Assessed, Scarring -Moisture (Alexus-wound Skin Appearance) Assessed -Color (Alexus-wound Skin Appearance) Erythema -Temperature (Alexus-wound Skin No Abnormality Appearance) (Pt Warm) -Tenderness on Palpation (Alexus-wound Yes Skin Appearance) -Ulcer Cleansing Rinsed/ Irrigated with Saline -Foul Odor after Cleansing No -Anesthetic Used 4% Lidocaine Solution #4 Sacrum -Combined with other wound No -Current Size (cm) - Length 2 -Current Size (cm) - Width 1.5 -Current Size (cm) - Depth 1 -Total Square Cm 3.0 -Photo Taken No -Epithelialization None Present -Tunneling No -Undermining/Tunneling Yes -Undermining/Tunneling Starts (O'clock 1 ) -Undermining/Tunneling Ends (O'clock) 3 -Maximum Distance (cm) 2.7 -Circular Undermining No -Exudate Amt Medium -Exudate Type Serosanguineous -Wound Margin Distinct, Outline Attached -Granulation Amt Medium (34-66%) -Granulation Quality Red -Slough/Fibrin Yes -Necrosis Amt Medium (34-66%) -Necrotic Tissue Type Adherent Slough -Texture (Alexus-wound Skin Appearance) Assessed -Moisture (Alexus-wound Skin Appearance) Assessed -Color (Alexus-wound Skin Appearance) Assessed -Temperature (Alexus-wound Skin No Abnormality Appearance) (Pt Warm) -Tenderness on Palpation (Alexus-wound No Skin Appearance) -Ulcer Cleansing Rinsed/ Irrigated with Saline -Foul Odor after Cleansing No -Anesthetic Used 4% Lidocaine Solution WC - Nurse 2 - General Ulcer CM Notes Start: 03/27/21 13:23 Freq: Status: Active Protocol: Activity Type Activity Date Activity User E-Sign Co-Sign Detail Recorded Client Recorded Date Recorded By Document 03/27/21 14:17 MW [id number] 03/27/21 14:21 MW 03/27/21 14:17 Wound Center Nurse 2 #5 right hip -Time 14:18 -Correct Patient Yes -Correct Side, Site, Position Yes -Correct Procedure Yes -Procedure Performed No -Tunneling No -Undermining/Tunneling No -Circular Undermining No -Wound/Ulcer Outcome Not Healed -Ulcer Cleansing Rinsed/ Irrigated with Saline -Foul Odor after Cleansing No -Bioengineered Tissue No -Bleeding Controlled with NA -Offloading No #4 Sacrum -Time 14:19 -Correct Patient Yes -Correct Side, Site, Position Yes -Correct Procedure Yes -Procedure Performed No -Tunneling No -Undermining/Tunneling No -Circular Undermining No -Wound/Ulcer Outcome Not Healed -Ulcer Cleansing Rinsed/ Irrigated with Saline -Foul Odor after Cleansing No -Bioengineered Tissue No -Bleeding Controlled with NA -Offloading No -Treatment Response Procedure Tolerated Well Pain Scale: 0-10 Numeric Is Patient Pain Free? Yes WC - Nurse 3 - General Ulcer D/C NN Start: 03/27/21 13:23 Freq: Status: Active Protocol: Activity Type Activity Date Activity User E-Sign Co-Sign Detail Recorded Client Recorded Date Recorded By Document 03/27/21 14:30 MW [id number] 03/27/21 14:31 MW Document 03/27/21 14:47 DL [id number] 03/27/21 14:49 DL 03/27/21 03/27/21 14:30 14:47 Wound Care Nurse 3 #5 right hip -Ulcer Cleansing Rinsed/ Rinsed/ Irrigated with Irrigated with Saline Saline -Foul Odor after Cleansing No No -Negative Pressure Wound Therapy N/A -Primary Dressing Applied Mepilex Border, Mepilex Border, Silvercel Silvercel -Primary Dressing Covered/Secured with Dry Gauze, Secured with Tape -Mepilex Border 1 1 -Silvercel 1 1 #4 Sacrum -Ulcer Cleansing Rinsed/ Rinsed/ Irrigated with Irrigated with Saline Saline -Foul Odor after Cleansing No No -Negative Pressure Wound Therapy N/A -Primary Dressing Applied Mepilex Border Mepilex Border -Other Dressing silvercel silvercell -Mepilex Border 1 1 Treatment Response Procedure Procedure Tolerated Well Tolerated Well Pain Scale: 0-10 Numeric Is Patient Pain Free? Yes Yes Teaching: Wound Center Dressing Your Wound -Person Taught Patient,Family -Teaching Method Discussion, Demonstration -Response to teaching Verbalize understanding WC - Visit Discharge Discharge Condition Stable Stable Ambulatory Status Wheelchair Wheelchair Transportation Private Auto Private Auto Accompanied by daughter Medication Reconcilliation completed & No provided to patient/care provider Clinical Summary of Care Provided Yes Wound debrided: There was no need for debridement today.
== END 2021-04-16 23:59 ==
LOC: WC 13:16
PROVIDERS: PCP Family Medicine; Referring Provider Nurse Practitioner Family; Visit Provider Nurse Practitioner Family
DX: L89.153 Pressure ulcer of sacral region, stage 3 (principal); R64 Cachexia; R63.6 Underweight; Z68.1 Body mass index [BMI] 19.9 or less, adult; Z79.01 Long term (current) use of anticoagulants; Z79.890 Hormone replacement therapy; Z79.899 Other long term (current) drug therapy
CPT/HCPCS: 99213; G0463

== ENCOUNTER 2021-04-26 13:02 | Outpatient (RCR) | payer MEDICARE, OTHER, SELFPAY ==
[2021-04-17 00:20] VITALS: BP 116/72; PULSE 85; RESP 16; TEMP 36.6
[2021-04-26 13:28] VITALS: RESP 20; TEMP 36.4; BMI 14.8
--- NOTE | 2021-04-26 14:19 | PN.PCM_ITS ---
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 She is currently on a complex wound care plan. She has had multiple wound care failures. Last seen here about 4 weeks ago, comes in monthly. They have been applying Moistened Silvercell with OptiFoam over top daily to twice daily depending on drainage/contamination. Wound culture from 08/24/20 postive for Staphylococcus simulans, Anaerobic cocci and Prevotella oralis. She was treated with Flagyl. No acute concerns at this time. She denies chills, fever otherwise feeling of unwell. Subjective Subjective No fevers, chills or night sweats. No change in the wounds. She is on palliative care. Poor appetite and intake. Denies pain. Objective Data Objective Data Vital Signs: Vital Signs Temp Pulse Resp BP 97.6 F L 85 20 H 116/72 04/26/21 13:28 04/17/21 00:20 04/26/21 13:28 04/17/21 00:20 Body Mass Index (BMI) 14.8 Charges/Coding Procedures Integumentary 111xxx-113xx: [id number] Angie subq tissue 20 sq cm/< Physical Exam Const alert and no apparent distress Nutritional Appearance: cachectic HEENT normocephalic Resp clear to auscultation bilaterally Cardio regular rate and regular rhythm Skin Wounds: wounds noted Wound Narrative: She has chronic wounds on the R hip and the sacrum. They have been present for a long time. She is not a candidate for surgery.....saw Dr. Zhu. Both wounds are clean with no purulent discharge and no periwound erythema. The wounds are currently stable and are being dressed with silvercel. there is some tunnelling and undermining to the right hip. Debridement Note Debridement Note Post-Debridement Measurements and Additional Note: Post-Debridement Measurements/Treatment ROMI - Nurse 1 - General Ulcer Assessment Start: 04/26/21 13:28 Freq: Status: Active Protocol: ROMI.PANCHITO Activity Type Activity Date Activity User E-Sign Co-Sign Detail Recorded Client Recorded Date Recorded By Document 04/26/21 13:28 DL [id number] 04/26/21 13:37 04/26/21 13:28 - Today's Visit Information Type of service Follow-up Visit (Physician/EXCHANGE CONSULTANT ) Arrival Mode Wheelchair Transfer Assistance None Patient Identification Verified (Name & Yes ) Patient Requires Transmission-Based No Precautions Height and Weight Body Mass Index (BMI) 14.8 BMI Classification Underweight Vital Signs Temperature (97.8 F-99.1 F) 97.6 F L Temperature Source Temporal Respiratory Rate (12-18) 20 H Respiratory rate source Observation History Since Last Visit- (Skip if this is Patient's initial visit) Have you changed medications since your No last visit? Any new allergies or adverse reactions No Had a fall/change in ADL's that may No increase risk of falls Signs or symptoms of abuse and/or No neglect since last visit Have you been in the hospital since your No last visit? Has dressing in place as prescribed Yes Has compression in place as prescribed N/A Has offloadiing in place as prescribed Yes Experienced any changes in pain level or No management Pain Scale: 0-10 Numeric Is Patient Pain Free? Yes - Nurse 1 - General Ulcer Measurement Start: 04/26/21 13:28 Freq: Status: Active Protocol: Activity Type Activity Date Activity User E-Sign Co-Sign Detail Recorded Client Recorded Date Recorded By Document 04/26/21 13:28 [id number] 04/26/21 13:37 04/26/21 13:28 Wound Center Nurse 1 #5 right hip -Current Size (cm) - Length 0.5 -Current Size (cm) - Width 1 -Current Size (cm) - Depth 3.6 -Total Square Cm 0.5 -Photo Taken No -Tunneling Position (O'clock) 11 -Tunneling Distance (cm) 3.6 -Exudate Amt Medium -Exudate Type Serosanguineous -Wound Margin Distinct, Outline Attached -Granulation Amt Medium (34-66%) -Granulation Quality [place],Red -Necrosis Amt Medium (34-66%) -Necrotic Tissue Type Adherent Slough -Structure Exposed N/A -Texture (Alexus-wound Skin Appearance) Scarring -Moisture (Alexus-wound Skin Appearance) No Abnormality -Color (Alexus-wound Skin Appearance) No Abnormality -Temperature (Alexus-wound Skin No Abnormality Appearance) (Pt Warm) -Tenderness on Palpation (Alexus-wound No Skin Appearance) -Ulcer Cleansing Rinsed/ Irrigated with Saline -Foul Odor after Cleansing No -Anesthetic Used 4% Lidocaine Solution #4 Sacrum -Current Size (cm) - Length 2.7 -Current Size (cm) - Width 0.8 -Current Size (cm) - Depth 0.3 -Total Square Cm 2.16 -Photo Taken No -Undermining/Tunneling Starts (O'clock 7 ) -Undermining/Tunneling Ends (O'clock) 11 -Maximum Distance (cm) 1.4 -Exudate Amt Medium -Exudate Type Serosanguineous -Wound Margin Distinct, Outline Attached -Granulation Amt Large (67-100%) -Granulation Quality Red -Necrosis Amt Small (1-33%) -Necrotic Tissue Type Adherent Slough -Structure Exposed N/A -Texture (Alexus-wound Skin Appearance) Scarring -Moisture (Alexus-wound Skin Appearance) No Abnormality -Color (Alexus-wound Skin Appearance) No Abnormality -Temperature (Alexus-wound Skin No Abnormality Appearance) (Pt Warm) -Tenderness on Palpation (Alexus-wound No Skin Appearance) -Ulcer Cleansing Rinsed/ Irrigated with Saline -Foul Odor after Cleansing No -Anesthetic Used 4% Lidocaine Solution WC - Nurse 3 - General Ulcer D/C NN Start: 04/26/21 13:28 Freq: Status: Active Protocol: Activity Type Activity Date Activity User E-Sign Co-Sign Detail Recorded Client Recorded Date Recorded By Document 04/26/21 14:16 MW [id number] 04/26/21 14:17 MW 04/26/21 14:16 Wound Care Nurse 3 #5 right hip -Ulcer Cleansing Rinsed/ Irrigated with Saline -Foul Odor after Cleansing No -Negative Pressure Wound Therapy N/A -Primary Dressing Applied Aquacel AG 4x4, Mepilex Border -Aquacel AG 4x4 1 -Mepilex Border 1 #4 Sacrum -Ulcer Cleansing Rinsed/ Irrigated with Saline -Foul Odor after Cleansing No -Negative Pressure Wound Therapy N/A -Primary Dressing Applied Mepilex Border -Other Dressing aquacel ag -Mepilex Border 1 Treatment Response Procedure Tolerated Well Pain Scale: 0-10 Numeric Is Patient Pain Free? Yes Teaching: Wound Center Dressing Your Wound -Person Taught Patient -Teaching Method Discussion -Response to teaching Verbalize understanding WC - Visit Discharge Discharge Condition Stable Ambulatory Status Wheelchair Transportation Private Auto Accompanied by daughter Medication Reconcilliation completed & No provided to patient/care provider Clinical Summary of Care Provided Yes Additional Wound Wound debrided: Stage III pressure injury to sacrum, stage III pressure injury hip Type of Debridement: Excisional debridement Anesthesia Used: 5% Lidocaine Gel Depth: Down to and including healthy tissue and in the subcutaneous layer Percentage of wound debrided: 100 Instrument Used: 5mm curette Tissue Removed: Slough and devitalized tissue Severity: Fat Layer Exposed Amount of bleeding with debridement: Mild Bleeding Controlled with: Pressure Patient tolerated procedure: Patient tolerated procedure well Assessment/Plan Assessment/Plan (1) Pressure injury of hip, stage 3: CODE(S): L89.203 - Pressure ulcer of unspecified hip, stage 3 (2) Stage III pressure ulcer: CODE(S): L89.93 - Pressure ulcer of unspecified site, stage 3 QUALIFIERS: Pressure injury location: sacral region Qualified Code(s): L89.153 - Pressure ulcer of sacral region, stage 3 (3) Amputation of left lower extremity: CODE(S): S88.912A - 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 A subcutaneous debridement was performed today. The patient tolerated the procedure well. The patients wound care will consist of: Packing the right hip pressure injury with Silvercel rope, changing every other day and as needed. For this patient will need home health assistance, a palliative consult was also placed. For the sacral pressure injury, apply moistened silver cell cover with gauze and ABD change daily. Patient educated on the importance of diet on wound healing and instructed to increase protein and vitamin C intake. Patient verbalized understanding. Patient will follow up at wound healing center in 4 weeks per palliative wound plan or sooner if needed. This note was generated with [employer] software. It may contain incorrect words, spelling, and punctuation that were not noted in checking the note before signing.
== END 2021-05-16 23:59 ==
LOC: WC 13:02
PROVIDERS: PCP Family Medicine; Referring Provider Nurse Practitioner Family; Visit Provider Nurse Practitioner Family
DX: L89.153 Pressure ulcer of sacral region, stage 3 (principal); L89.213 Pressure ulcer of right hip, stage 3; S88.912A Complete traumatic amputation of left lower leg, level unspecified, initial encounter; X58.XXXA Exposure to other specified factors, initial encounter; Y93.9 Activity, unspecified; Y92.9 Unspecified place or not applicable; Y99.9 Unspecified external cause status; I10 Essential (primary) hypertension; R63.6 Underweight; Z68.1 Body mass index [BMI] 19.9 or less, adult; Z79.01 Long term (current) use of anticoagulants; Z79.890 Hormone replacement therapy; Z79.899 Other long term (current) drug therapy
CPT/HCPCS: 11042

== ENCOUNTER 2021-05-05 13:59 | Emergency (ER) | payer MEDICARE, OTHER, SELFPAY ==
[2021-05-05 14:00] VITALS: BP 143/66; PULSE 87; RESP 16; TEMP 36.9; O2SAT 97; BMI 16.2
--- NOTE | 2021-05-05 14:20 | ED.RN ---
This nurse applied ice to lower abd hernia. Patient states that hernia started to reduce during EMS ride to ED.
--- NOTE | 2021-05-05 14:25 | ED.RN ---
While reassessing ice to lower abd this nurse noted that the hernia had reduce. Patient states that her pain level had greatly decreased.
--- NOTE | 2021-05-05 15:11 | EDS_ITS ---
HPI HPI - GI History of Present Illness Chief Complaint: Abd Pain Informant: patient and family Abdominal Pain/Flank Pain Onset: Today Timing: Continuous Quality: Aching Location: LLQ Current Severity: Gone Maximum Severity: Mild Nausea/Vomiting/Emesis GI Symptom: Negative for Nausea Diarrhea/Melena/Hematochezia GI Symptom: Negative for Diarrhea Associated Symptoms Associated Symptoms: Negative for Dysuria Narrative Narrative: 85-year-old female history of left lower quadrant hernia. Today it sounds like the hernia became incarcerated. It occurred around 8:00 this morning and then resolved about 230. She was brought in by squad they put an i ce pack over the hernia and it spontaneously resolved and now she is pain-free. She denies any vomiting. She has been having bowel movements. She was told in the past she was not a good surgical candidate to have this electively fixed. Prior similar symptoms: Yes Recent Illness/Hospitalization: No PFSH PFSH Medical History Anemia Anxiety Depression DVT (deep venous thrombosis) GERD (gastroesophageal reflux disease) Hearing loss, left Hearing loss, right Hyperlipemia Hypertension Hypothyroidism Pressure injury of coccygeal region, unstageable Pressure injury of hip, stage 3 Pulmonary embolism Rheumatoid arthritis Home Medications levothyroxine 75 mcg PO DAILY 07/28/16 [History Last Taken 01/25/18] simvastatin 20 mg PO QHS 07/28/16 [History Last Taken 01/24/18] hydrocodone-acetaminophen 1 tab PO Q6H PRN PRN 01/25/18 [History Last Taken 01/25/18 06:00] ferrous sulfate 325 mg PO BID 05/25/19 [History Last Taken Unknown] warfarin 1 mg PO DAILY 05/25/19 [History Last Taken Unknown] pantoprazole 20 mg PO DAILY 02/16/21 [History Last Taken Unknown] Allergy/AdvReac Type Severity Reaction Status Date / Time amoxicillin [From Augmentin] Allergy Hives Verified 05/05/21 14:07 azathioprine [From Imuran] Allergy Hives Verified 05/05/21 14:07 ceftriaxone Allergy Hives Verified 05/05/21 14:07 celecoxib Allergy Hives Verified 05/05/21 14:07 clavulanic acid Allergy Hives Verified 05/05/21 14:07 [From Augmentin] etodolac Allergy Hives Verified 05/05/21 14:07 methotrexate Allergy effect to Verified 05/05/21 14:07 liver NSAIDS (Non-Steroidal Allergy Hives Verified 05/05/21 14:07 Anti-Inflamma Penicillins Allergy Hives Verified 05/05/21 14:07 sulfamethoxazole Allergy Hives Verified 05/05/21 14:07 arthritis medications Allergy effected Uncoded 05/05/21 14:07 the liver Social History Smoking Status: Never smoker ROS ROS ED ROS Narrative Was having abdominal pain that is since resolved. Review of Systems ROS Unobtainable: Denies due to encephalopathy Constitutional Constitutional ED: Denies chills or fever(s) ENT ENT ED: Denies ear pain or sore throat Cardiovascular Cardiovascular: Denies chest pain Respiratory/Chest Respiratory/Chest: Denies dyspnea Gastrointestinal Gastrointestinal: Reports abdominal pain; Denies constipation, diarrhea, nausea or vomiting Genitourinary Genitourinary ED: Denies dysuria Musculoskeletal Musculoskeletal: Denies myalgias Integumentary Denies rash Neurologic Neurologic: Denies headache(s) Psychiatric Psychiatric: Denies depression Endocrine Endocrinology: Denies polyuria Hematologic/Lymphatic Hematologic/Lymphatic: Denies easy bruising Allergic/Immunologic Allergic/Immunologic ED: Denies urticaria EXAM Physical Exam Narrative Exam Narrative: Well-appearing elderly female. Vital signs stable afebrile. Family at bedside. Lungs are clear. Heart regular rhythm. Currently abdomen is soft and nontender normal bowel sounds no peritoneal signs. No signs of obstruction. The prior left lower quadrant hernia is resolved. She has really no significant tenderness in the left lower quadrant or anywhere else in the abdomen. Moving all 4 extremities. Left [id number] amputation. Neurologically she is awake and alert. Const Vital Signs: 05/05/21 14:00 Temperature 98.5 F Temperature Source Temporal Pulse Rate 87 Respiratory Rate 16 Blood Pressure 143/66 H Blood Pressure Mean 91 Pulse Ox 97 Oxygen Delivery Method Room Air Positive well nourished and well developed General Appearance ED: well developed HEENT Reports moist mucous membranes normocephalic and atraumatic Eyes PERRL and EOMs intact bilaterally Neck no lymphadenopathy and supple Resp normal respiratory effort and clear to auscultation bilaterally Cardio regular rate, regular rhythm, S1 normal heart sound, S2 normal heart sound and no murmurs GI non-tender, non-distended and no masses Inspection: Negative for abdominal distention Auscultation: normoactive bowel sounds; Negative for hypoactive bowel sounds Palpation: soft; Negative for tender, guarding, rigid or rebound tenderness present Back/Spine no CVA tenderness Extremity full ROM General Extremety ED: Negative for edema or tenderness General Extremity: Negative for edema Neuro Sensorium / Orientation: alert, oriented to person, oriented to place and oriented to time Psych mental status grossly normal Skin Rashes: no rashes MDM MDM MDM Narrative Medical decision making narrative: Clinically soundly the patient incarcerated left lower quadrant hernia. Is in spontaneous resolve. Currently she is pain- free clinically looks well. She will be observed. I will think she needs any further work-up at this time. Repeat exam at 4:50 PM patient is doing well. Abdomen is completely benign she has no pain will be discharged home. Discharge Plan Triage Chief Complaint: Abd Pain ED Provider: Sandeep Stone Dx/Rx/DC Orders Clinical Impression: Incarcerated hernia Instructions: ED Hernia (Adult) Prescriptions: No Action levothyroxine 100 MCG tablet 75 mcg PO DAILY RF: 0 simvastatin 20 MG tablet 20 mg PO QHS RF: 0 hydrocodone-acetaminophen 1 TABLET tablet 1 tab PO Q6H PRN PRN (Reason: Pain) RF: 0 ferrous sulfate 325 MG tablet 325 mg PO BID RF: 0 warfarin 1 MG tablet 1 mg PO DAILY RF: 0 pantoprazole 40 MG tablet 20 mg PO DAILY RF: 0 Primary Care Provider: Denny Bourgeois Referrals: Denny Bourgeois MD [Primary Care Provider] - As Needed Activity Restrictions/Additional Instructions: If hernia bulges back out lie flat place ice on it. If it does not spontaneously go back and after 20 to 30 minutes you need to be reseen. If you have worsening pain fever or vomiting you need to return also. Disposition Disposition: Home, self care
== END 2021-05-05 17:32 | disposition home or self-care (01) ==
PROVIDERS: Emergency Provider Emergency Medicine; PCP Family Medicine
DX: K46.0 Unspecified abdominal hernia with obstruction, without gangrene (principal); I10 Essential (primary) hypertension; E03.9 Hypothyroidism, unspecified; E78.5 Hyperlipidemia, unspecified; D64.9 Anemia, unspecified; F32.9 Major depressive disorder, single episode, unspecified; F41.9 Anxiety disorder, unspecified; K21.9 Gastro-esophageal reflux disease without esophagitis; M06.9 Rheumatoid arthritis, unspecified; H91.93 Unspecified hearing loss, bilateral; Z86.718 Personal history of other venous thrombosis and embolism; Z86.711 Personal history of pulmonary embolism; Z79.01 Long term (current) use of anticoagulants; Z79.899 Other long term (current) drug therapy
CPT/HCPCS: 99284

== ENCOUNTER 2021-06-07 13:03 | Outpatient (RCR) | payer MEDICARE, OTHER, SELFPAY ==
[2021-05-17 00:17] VITALS: BP 116/72; PULSE 85; RESP 20; TEMP 36.4
[2021-06-07 13:12] VITALS: BP 127/57; PULSE 86; RESP 20; TEMP 37.1; BMI 16.2
--- NOTE | 2021-06-07 17:03 | PCM.WC.PN ---
History of Present Illness Date of Service: 06/07/21 Chief Complaint: 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 She is currently on a complex wound care plan. She has had multiple wound care failures. Last seen here about 4 weeks ago, comes in monthly. They have been applying Moistened Silvercell with OptiFoam over top daily to twice daily depending on drainage/contamination. Wound culture from 08/24/20 postive for Staphylococcus simulans, Anaerobic cocci and Prevotella oralis. She was treated with Flagyl. No acute concerns at this time. She denies chills, fever otherwise feeling of unwell. Progress of Wound: Patient comes in today with multiple new wounds including a new wound to the right hip and also the right fifth toe. Patient's daughter is here today and states that patient has been complaining more of her chronic pain and that insurance only covers home care to help out with her wounds twice per week and that they are having difficulty with wound care and that her who is at home is unable to care for her either. Patient is chronically debilitated and daughter would like to discuss with primary care about having a hospice/palliative referral. Objective Data Objective Data Vital Signs: Vital Signs Temp Pulse Resp BP 98.7 F 86 20 H 127/57 H 06/07/21 13:12 06/07/21 13:12 06/07/21 13:12 06/07/21 13:12 Body Mass Index (BMI) 16.2 Physical Exam Const alert and no apparent distress Constitutional Narrative: Chronically ill-appearing Nutritional Appearance: cachectic HEENT normocephalic Resp clear to auscultation bilaterally Cardio regular rate and regular rhythm Extremity Extremity Narrative: Left hvbab-ori-sapx amputation Skin Wounds: wounds noted Wound Narrative: She has chronic wounds on the R hip x2 with a large amount of serous drainage and the sacrum. She also has a very small wound to her right fifth toe. she is not a candidate for surgery for the right hip abscess, saw Dr. Zhu. Both wounds are clean with no purulent discharge and no periwound erythema. The wounds are currently stable and are being dressed with silvercel. there is some significant tunnelling and undermining to the right hip. 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 ) Arrival Mode Wheelchair Transfer Assistance Manual Transfer Assist (Other) x2 Patient Identification Verified (Name & Yes ) Patient Requires Transmission-Based No Precautions Height and Weight Body Mass Index (BMI) 16.2 BMI Classification Underweight Vital Signs Temperature (97.8 F-99.1 F) 98.7 F Temperature Source Temporal Pulse Rate (60-100) 86 Pulse Location Apical Respiratory Rate (12-18) 20 H Respiratory rate source Observation Blood Pressure (90/60-120/80) 127/57 H Blood Pressure Mean (mm Hg) 80 Source Monitor History Since Last Visit- (Skip if this is Patient's initial visit) Have you changed medications since your No last visit? Any new allergies or adverse reactions No Had a fall/change in ADL's that may No increase risk of falls Signs or symptoms of abuse and/or No neglect since last visit Have you been in the hospital since your No last visit? Has dressing in place as prescribed Yes Has compression in place as prescribed N/A Has offloadiing in place as prescribed Yes Experienced any changes in pain level or No management Pain Scale: 0-10 Numeric Is Patient Pain Free? Yes ROMI - Nurse 1 - General Ulcer Measurement Start: 06/07/21 13:12 Freq: Status: Active Protocol: Activity Type Activity Date Activity User E-Sign Co-Sign Detail Recorded Client Recorded Date Recorded By Document 06/07/21 13:12 DL [id number] 06/07/21 13:25 DL Edit Result 06/07/21 13:12 DL (1) [id number] 06/07/21 13:33 DL (1) #7 R 5th Toe - Current Size (cm) - Length => 0.5 - Current Size (cm) - Width => 0.5 - Current Size (cm) - Depth => 0.1 - Total Square Cm => 0.25 - Photo Taken => Yes - Exudate Amt => Small - Exudate Type => Serosanguineous - Wound Margin => Distinct, Outline => Attached - Granulation Amt => Large (67-100%) - Granulation Quality => [place] - Necrosis Amt => Small (1-33%) - Necrotic Tissue Type => Adherent Slough - Structure Exposed => N/A - Texture (Alexus-wound Skin Appearance) => Scarring - Moisture (Alexus-wound Skin Appearance) => Weeping - Color (Alexus-wound Skin Appearance) => Erythema - Temperature (Alexus-wound Skin => No Abnormality (Pt Appearance) => Warm) - Tenderness on Palpation (Alexus-wound => Yes Skin Appearance) - Ulcer Cleansing => Wound Cleanser - Foul Odor after Cleansing => No - Anesthetic Used => 4% Lidocaine => Solution #6 R Hip Inf - Photo Taken No => Yes 06/07/21 13:12 Wound Center Nurse 1 #7 R 5th Toe -Current Size (cm) - Length 0.5 -Current Size (cm) - Width 0.5 -Current Size (cm) - Depth 0.1 -Total Square Cm 0.25 -Photo Taken Yes -Exudate Amt Small -Exudate Type Serosanguineous -Wound Margin Distinct, Outline Attached -Granulation Amt Large (67-100%) -Granulation Quality [place] -Necrosis Amt Small (1-33%) -Necrotic Tissue Type Adherent Slough -Structure Exposed N/A -Texture (Alexus-wound Skin Appearance) Scarring -Moisture (Alexus-wound Skin Appearance) Weeping -Color (Alexus-wound Skin Appearance) Erythema -Temperature (Alexus-wound Skin No Abnormality Appearance) (Pt Warm) -Tenderness on Palpation (Alexus-wound Yes Skin Appearance) -Ulcer Cleansing Wound Cleanser -Foul Odor after Cleansing No -Anesthetic Used 4% Lidocaine Solution #6 R Hip Inf -Current Size (cm) - Length 0.2 -Current Size (cm) - Width 0.2 -Current Size (cm) - Depth 0.4 -Total Square Cm 0.04 -Photo Taken Yes -Exudate Amt Medium -Exudate Type Serosanguineous -Wound Margin Distinct, Outline Attached -Granulation Amt None Present (0 %) -Necrosis Amt Small (1-33%) -Necrotic Tissue Type Adherent Slough -Structure Exposed N/A -Texture (Alexus-wound Skin Appearance) Scarring -Moisture (Alexus-wound Skin Appearance) No Abnormality -Color (Alexus-wound Skin Appearance) No Abnormality -Temperature (Alexus-wound Skin No Abnormality Appearance) (Pt Warm) -Tenderness on Palpation (Alexus-wound No Skin Appearance) -Ulcer Cleansing Wound Cleanser -Foul Odor after Cleansing No -Anesthetic Used 5% Lidocaine Gel #5 right hip -Current Size (cm) - Length 0.5 -Current Size (cm) - Width 1 -Current Size (cm) - Depth 3.2 -Total Square Cm 0.5 -Photo Taken No -Tunneling Position (O'clock) 1 -Tunneling Distance (cm) 3.8 -Undermining/Tunneling No -Exudate Amt Medium -Exudate Type Serosanguineous -Wound Margin Distinct, Outline Attached -Granulation Amt Small (1-33%) -Granulation Quality [place] -Necrosis Amt Small (1-33%) -Necrotic Tissue Type Adherent Slough -Structure Exposed N/A -Texture (Alexus-wound Skin Appearance) Scarring -Moisture (Alexus-wound Skin Appearance) No Abnormality -Color (Alexus-wound Skin Appearance) No Abnormality -Temperature (Alexus-wound Skin No Abnormality Appearance) (Pt Warm) -Tenderness on Palpation (Alexus-wound No Skin Appearance) -Ulcer Cleansing Wound Cleanser -Foul Odor after Cleansing No -Anesthetic Used 4% Lidocaine Solution #4 Sacrum -Current Size (cm) - Length 2.5 -Current Size (cm) - Width 1 -Current Size (cm) - Depth 1.3 -Total Square Cm 2.5 -Photo Taken No -Exudate Amt Medium -Exudate Type Serosanguineous -Wound Margin Distinct, Outline Attached -Granulation Amt Medium (34-66%) -Granulation Quality Red -Necrosis Amt Medium (34-66%) -Necrotic Tissue Type Adherent Slough -Structure Exposed N/A -Texture (Alexus-wound Skin Appearance) Scarring -Moisture (Alexus-wound Skin Appearance) No Abnormality -Color (Alexus-wound Skin Appearance) No Abnormality -Temperature (Alexus-wound Skin No Abnormality Appearance) (Pt Warm) -Tenderness on Palpation (Alexus-wound No Skin Appearance) -Ulcer Cleansing Wound Cleanser -Foul Odor after Cleansing No -Anesthetic Used 4% Lidocaine Solution WC - Nurse 2 - General Ulcer CM Notes Start: 06/07/21 13:12 Freq: Status: Active Protocol: Activity Type Activity Date Activity User E-Sign Co-Sign Detail Recorded Client Recorded Date Recorded By Document 06/07/21 13:40 MW [id number] 06/07/21 13:49 MW 06/07/21 13:40 Wound Center Nurse 2 #7 R 5th Toe -Time 13:41 -Correct Patient Yes -Correct Side, Site, Position Yes -Correct Procedure Yes -Procedure Performed No -Post Debridement (cm) - Length 0.1 -Post Debridement (cm) - Width 0.1 -Post Debridement (cm) - Depth 0.1 -Total Square (Post) (cm) 0.01 -Tunneling No -Undermining/Tunneling No -Circular Undermining No -Wound/Ulcer Outcome Not Healed -Ulcer Cleansing Not Cleansed -Foul Odor after Cleansing No -Bioengineered Tissue No -Offloading No #6 R Hip Inf -Time 13:41 -Correct Patient Yes -Correct Side, Site, Position Yes -Correct Procedure Yes -Procedure Performed Yes -Type of Procedure Debridement -Clinical Debridement Subcutaneous -Tissue Removed Subcutaneous -Post Debridement (cm) - Length 0.5 -Post Debridement (cm) - Width 0.5 -Post Debridement (cm) - Depth 0.2 -Total Square (Post) (cm) 0.25 -Area of Debridement (cm) - Length 0.5 -Area of Debridement (cm) - Width 0.5 -Total Square (Area) (cm) 0.25 -Tunneling No -Undermining/Tunneling No -Circular Undermining No -Wound/Ulcer Outcome Not Healed -Ulcer Cleansing Rinsed/ Irrigated with Saline -Foul Odor after Cleansing No -Bioengineered Tissue No -Bleeding Controlled with Pressure -Offloading No -Treatment Response Procedure Tolerated Well -Debridement - Subq, 1st 20sq cm Yes #5 right hip -Time 13:42 -Correct Patient Yes -Correct Side, Site, Position Yes -Correct Procedure Yes -Procedure Performed Yes -Type of Procedure Debridement -Clinical Debridement Subcutaneous -Tissue Removed Subcutaneous -Post Debridement (cm) - Length 1.5 -Post Debridement (cm) - Width 1.0 -Post Debridement (cm) - Depth 4.5 -Total Square (Post) (cm) 1.50 -Area of Debridement (cm) - Length 1.5 -Area of Debridement (cm) - Width 1.0 -Total Square (Area) (cm) 1.50 -Tunneling No -Undermining/Tunneling No -Circular Undermining No -Wound/Ulcer Outcome Not Healed -Ulcer Cleansing Rinsed/ Irrigated with Saline -Foul Odor after Cleansing No -Bioengineered Tissue No -Bleeding Controlled with Pressure -Offloading No -Treatment Response Procedure Tolerated Well -Debridement - Subq, 1st 20sq cm No #4 Sacrum -Time 13:43 -Correct Patient Yes -Correct Side, Site, Position Yes -Correct Procedure Yes -Procedure Performed Yes -Type of Procedure Debridement -Clinical Debridement Subcutaneous -Tissue Removed Subcutaneous -Post Debridement (cm) - Length 3.0 -Post Debridement (cm) - Width 1.5 -Post Debridement (cm) - Depth 2.0 -Total Square (Post) (cm) 4.50 -Area of Debridement (cm) - Length 3.0 -Area of Debridement (cm) - Width 1.5 -Total Square (Area) (cm) 4.50 -Tunneling No -Undermining/Tunneling No -Circular Undermining No -Wound/Ulcer Outcome Not Healed -Ulcer Cleansing Rinsed/ Irrigated with Saline -Foul Odor after Cleansing No -Bioengineered Tissue No -Bleeding Controlled with Pressure -Offloading No -Treatment Response Procedure Tolerated Well -Debridement - Subq, 1st 20sq cm No Pain Scale: 0-10 Numeric Is Patient Pain Free? Yes WC - Nurse 3 - General Ulcer D/C NN Start: 06/07/21 13:12 Freq: Status: Active Protocol: Activity Type Activity Date Activity User E-Sign Co-Sign Detail Recorded Client Recorded Date Recorded By Document 06/07/21 13:54 MW [id number] 06/07/21 13:56 MW 06/07/21 13:54 Wound Care Nurse 3 #7 R 5th Toe -Ulcer Cleansing Rinsed/ Irrigated with Saline -Foul Odor after Cleansing No -Negative Pressure Wound Therapy N/A -Primary Dressing Covered/Secured with Dry Gauze #6 R Hip Inf -Ulcer Cleansing Rinsed/ Irrigated with Saline -Foul Odor after Cleansing No -Negative Pressure Wound Therapy N/A -Primary Dressing Applied Aquacel AG 4x4, Mepilex Border -Aquacel AG 4x4 1 -Mepilex Border 1 #5 right hip -Ulcer Cleansing Rinsed/ Irrigated with Saline -Foul Odor after Cleansing No -Negative Pressure Wound Therapy N/A -Other Dressing aquacel ag rope , mepilex 4x4 -Mepilex Border 1 #4 Sacrum -Ulcer Cleansing Rinsed/ Irrigated with Saline -Foul Odor after Cleansing No -Negative Pressure Wound Therapy N/A -Primary Dressing Applied Mepilex Border -Mepilex Border 1 Treatment Response Procedure Tolerated Well Pain Scale: 0-10 Numeric Is Patient Pain Free? Yes Teaching: Wound Center Dressing Your Wound -Person Taught Patient,Family -Teaching Method Discussion -Response to teaching Verbalize understanding WC - Visit Discharge Discharge Condition Stable Ambulatory Status Wheelchair Transportation Private Auto Accompanied by daughter Medication Reconcilliation completed & No provided to patient/care provider Clinical Summary of Care Provided Yes Additional Wound Wound debrided: Right hip wounds, stage III pressure injury to sacrum Type of Debridement: Excisional debridement Anesthesia Used: 4% Lidocaine Solution Depth: Down to and including healthy tissue and in the subcutaneous layer Percentage of wound debrided: 100 Instrument Used: 5mm curette Tissue Removed: Slough and devitalized tissue Severity: Fat Layer Exposed Amount of bleeding with debridement: Mild Bleeding Controlled with: Pressure Patient tolerated procedure: Patient tolerated procedure well Assessment/Plan Assessment/Plan (1) Pressure injury of hip, stage 3: CODE(S): L89.203 - Pressure ulcer of unspecified hip, stage 3 (2) Stage III pressure ulcer: CODE(S): L89.93 - Pressure ulcer of unspecified site, stage 3 QUALIFIERS: Pressure injury location: sacral region Qualified Code(s): L89.153 - Pressure ulcer of sacral region, stage 3 (3) Amputation of left lower extremity: CODE(S): S88.912A - Complete traumatic amputation of left lower leg, level unspecified, initial encounter (4) Immobility: CODE(S): Z74.09 - Other reduced mobility (5) Malnutrition: CODE(S): E46 - Unspecified protein-calorie malnutrition (6) Hypertension: CODE(S): I10 - Essential (primary) hypertension (7) Chronic pain: CODE(S): G89.29 - Other chronic pain PLAN: The patient was seen and examined at the wound center today and was updated on the plan of care. A subcutaneous debridement was performed today. The patient tolerated the procedure well. The patients wound care will consist of: Packing the right hip pressure injury with Silvercel rope, changing every other day and as needed (would prefer to have daily dressing changes, however they are unable to have nursing care more than twice per week). For this patient will need home health assistance, a palliative/hospice consult was also placed given her chronic wounds, chronic debility, and chronic pain. For the sacral pressure injury, apply moistened silver cell cover with gauze and ABD change daily. Patient educated on the importance of diet on wound healing and instructed to increase protein and vitamin C intake. Patient verbalized understanding. Patient will follow up at wound healing center in 4 weeks per palliative wound plan or sooner if needed. This note was generated with [employer] dictation software. It may contain incorrect words, spelling, and punctuation that were not noted in checking the note before signing. I have spent 35 minutes today reviewing labs, records, and history. Time includes coordinating care, interpretation of tests, and counseling the patient/family. This also includes time I spent with the patient for exam, treatment plan, and education as well as documenting clinical information in the electronic health record.
== END 2021-06-16 23:59 ==
LOC: WC 13:03
PROVIDERS: PCP Family Medicine; Referring Provider Nurse Practitioner Family; Visit Provider Nurse Practitioner Family
DX: L89.153 Pressure ulcer of sacral region, stage 3 (principal); L89.213 Pressure ulcer of right hip, stage 3; G89.29 Other chronic pain; I10 Essential (primary) hypertension; Z79.01 Long term (current) use of anticoagulants; Z79.890 Hormone replacement therapy; Z79.899 Other long term (current) drug therapy; Z89.612 Acquired absence of left leg above knee
CPT/HCPCS: 11042; 99213; G0463

== ENCOUNTER 2021-07-10 15:00 | Emergency (ER) | payer MEDICARE, OTHER, SELFPAY ==
[2021-07-10 15:02] VITALS: BP 118/62; PULSE 87; RESP 18; TEMP 36.8; O2SAT 99; BMI 15.7
[2021-07-10 16:05] VITALS: BP 134/55; PULSE 78; RESP 16; TEMP 36.4; O2SAT 94
[2021-07-10] MEDS: Morphine 2 MG/ML Syringe IV (16:22)
--- NOTE | 2021-07-10 16:25 | CM.ED ---
BILLIE Note: Referral Source: MD Reed Referral Reason : Possible Placement due to needing daily wound care SW was advised that patient may need placement per MD. BILLIE spoke to Ele at TCU (Transitional Care Unit) and made referral. She said that patient is clear to come if she needs TCU at discharge. BILLIE met with patient and her daughter. Patient has been in the TCU in the past and spoke positively of the experienced. Patient and her daughter, Marcia, were in agreement with placement at TCU. BILLIE updated MD that patient can be placed tonight in TCU. Plan: TCU at discharge from ED [facility] ZACARIAS
--- NOTE | 2021-07-10 16:26 | EX.ED.DYSGE1 ---
HPI History of Present Illness Chief Complaint: Wound Detail of Chief Complaint: Details for prolonged period of time. Sent to ER for SNF placement Onset/Context/Timing Onset: - (Years) Context: Gradual Onset Timing: Continuous Quality: Decubitus medial superior right buttocks and stage III decubitus sacral woo Location: Decubiti do not appear infected Current Severity: Mild (Buttocks) Maximum Severity: Moderate (Sacrococcyx) Worsened by: Nothing Relieved by: Nothing Associated Symptoms Associated Symptoms: None related to the decubitus. Pain due to rheumatoid arthritis Narrative Narrative: Patient is an elderly woman with chronic debility and pain due to rheumatoid arthritis who was sent from the wound center because of nonhealing wound. Wound center is concerned that she has increased number of wounds and not able to manage as an outpatient. It is the practitioner opinion that she requires [facility] care to facilitate wound healing since care needs to be daily. She denies fever, chills night sweats. She denies HEENT symptoms. She denies cardiac respiratory symptoms. She denies nausea, vomiting or diarrhea. She lives with her . Prior similar symptoms: Yes Recent Illness/Hospitalization: No PFSH PFSH Medical History Anemia Anxiety Chronic pain Debility Depression DVT (deep venous thrombosis) GERD (gastroesophageal reflux disease) Hearing loss, left Hearing loss, right Hyperlipemia Hypertension Hypothyroidism Pressure injury of coccygeal region, unstageable Pressure injury of hip, stage 3 Pulmonary embolism Rheumatoid arthritis Home Medications levothyroxine 75 mcg PO DAILY 07/28/16 [History Last Taken 01/25/18] simvastatin 20 mg PO QHS 07/28/16 [History Last Taken 01/24/18] hydrocodone-acetaminophen 1 tab PO Q6H PRN PRN 01/25/18 [History Last Taken 01/25/18 06:00] ferrous sulfate 325 mg PO BID 05/25/19 [History Last Taken Unknown] warfarin 1 mg PO DAILY 05/25/19 [History Last Taken Unknown] pantoprazole 20 mg PO DAILY 02/16/21 [History Last Taken Unknown] lisinopril 40 mg PO DAILY 07/10/21 [History Last Taken Unknown] Allergy/AdvReac Type Severity Reaction Status Date / Time amoxicillin [From Augmentin] Allergy Hives Verified 05/05/21 14:07 azathioprine [From Imuran] Allergy Hives Verified 05/05/21 14:07 ceftriaxone Allergy Hives Verified 05/05/21 14:07 celecoxib Allergy Hives Verified 05/05/21 14:07 clavulanic acid Allergy Hives Verified 05/05/21 14:07 [From Augmentin] etodolac Allergy Hives Verified 05/05/21 14:07 methotrexate Allergy effect to Verified 05/05/21 14:07 liver NSAIDS (Non-Steroidal Allergy Hives Verified 05/05/21 14:07 Anti-Inflamma Penicillins Allergy Hives Verified 05/05/21 14:07 sulfamethoxazole Allergy Hives Verified 05/05/21 14:07 arthritis medications Allergy effected Uncoded 05/05/21 14:07 the liver Social History (Updated 07/10/21 @ 16:[address] Zia Reed MD) household members: spouse housing: house Smoking Status: Never smoker alcohol intake: never substance use type: does not use ROS ROS ED Constitutional Constitutional ED: Reports weight loss; Denies chills, fever(s), subjective or sweats Eyes Eyes: Denies blurry vision or change in vision ENT ENT ED: Denies ear pain, rhinorrhea or sore throat Cardiovascular Cardiovascular: Denies chest pain or palpitations Respiratory/Chest Respiratory/Chest: Denies cough, dyspnea or sputum Gastrointestinal Gastrointestinal: Denies abdominal pain, diarrhea, nausea or vomiting Genitourinary Genitourinary ED: Denies dysuria, hematuria or urinary frequency Musculoskeletal Musculoskeletal: Reports arthralgias, back pain, myalgias and neck pain Integumentary Reports rash and other Details: Decubitus right buttocks and sacral coccyx region as previously described Neurologic Neurologic: Reports weakness; Denies headache(s) Psychiatric Psychiatric: Reports depression EXAM Physical Exam Const Vital Signs: 07/10/21 15:02 07/10/21 16:05 07/10/21 17:01 Temperature 98.2 F 97.5 F L Temperature Source Temporal Temporal Pulse Rate 87 78 76 Respiratory Rate 18 16 15 Blood Pressure 118/62 134/55 H 130/55 H Blood Pressure Mean 80 81 80 Pulse Ox 99 94 98 Oxygen Delivery Method Room Air Room Air Room Air Positive well developed and cachectic General Appearance ED: well developed, cachectic and other Rheumatologic changes consistent with rheumatoid arthritis Nutritional Appearance: cachectic HEENT Reports moist mucous membranes HEENT Narrative: Head is atraumatic normocephalic. Ears normal. Nares patent. Posterior pharynx unremarkable. Eyes PERRL and EOMs intact bilaterally General Eye ED: Negative for pale conjunctiva Neck no lymphadenopathy, supple and no JVD Chest Wall inspection of chest normal Resp normal respiratory effort and clear to auscultation bilaterally Cardio regular rate, regular rhythm, S1 normal heart sound, S2 normal heart sound and no murmurs GI normal to inspection, nondistended, normoactive bowel sounds Palpation: soft Back/Spine no CVA tenderness Cervical Spine: Negative for cervical spine tenderness Thoracic Spine / Upper Back: thoracic spinal tenderness and paraspinal muscle tenderness Lumbar Spine / Lower Back: lumbar spinal tenderness Extremity normal to inspection General Extremety ED: Negative for tenderness Neuro oriented x3, CN's II-XII intact bilaterally and no sensory deficits noted Sensorium / Orientation: alert Motor Exam: strength 5/5 throughout Psych mental status grossly normal Mood & Affect: depressed Skin Wounds: wounds noted other Previously documented and per nurses notes MDM MDM MDM Narrative Medical decision making narrative: Patient resides at home. Her wounds have gotten worse. Concern by Dr. Hoffmann from wound center is that these wounds cannot be cared for as an outpatient basis and will required [facility]. farm worker was contacted. Patient does qualify for direct admit to TCU. Lab work was obtained to make sure patient does not require inpatient medical care prior to admission to TCU. Lab Data Attestation: I reviewed the patient's lab results. Labs: Laboratory Results - last 24 hr 07/10/21 07/10/21 15:34 15:34 WBC 9.5 RBC 4.09 L Hgb 8.5 L Hct 31.4 L MCV 76.8 L MCH 20.8 L MCHC 27.1 L RDW Std Deviation 45.7 H RDW Coeff of Bailey 16.9 H Plt Count 669 H MPV 9.9 Immature Gran % (Auto) 0.500 Neut % (Auto) 69.7 Lymph % (Auto) 19.1 [place] % (Auto) 7.6 Eos % (Auto) 2.4 Baso % (Auto) 0.7 Absolute Neuts (auto) 6.6 Absolute Lymphs (auto) 1.81 Nucleated RBC % 0 Sodium 140 Potassium 4.0 Chloride 108 H Carbon Dioxide 28.0 Anion Gap 4 L BUN 15 Creatinine 0.57 Estim Creat Clear Calc 28.08 Est GFR (MDRD) Af Amer 131 Est GFR (MDRD) Non-Af 108 BUN/Creatinine Ratio 26.5 H Glucose 86 Calcium 8.3 L Total Bilirubin 0.20 AST 10 L ALT 9 L Alkaline Phosphatase 143 H Total Protein 7.6 Albumin 2.4 L Globulin 5.2 H Albumin/Globulin Ratio 0.5 L Radiography Chest X-Ray - ED: 1 View (Prosthetic right and left hip. No evidence of osteo-. 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 Replaced hip joints free of complication No demonstrated fracture or suspicious osseous lesion, please see discussion above Electronically Signed: Van Villegas MD at 16:56 EDT , Service support , Discharge Plan Triage Chief Complaint: Wound ED Provider: Zia Reed Dx/Rx/DC Orders Clinical Impression: Sacral decubitus ulcer, stage III, Decubitus ulcer of buttock, stage 2 Instructions: Pressure Ulcer Common Sites Prescriptions: No Action levothyroxine 100 MCG tablet 75 mcg PO DAILY RF: 0 simvastatin 20 MG tablet 20 mg PO QHS RF: 0 hydrocodone-acetaminophen 1 TABLET tablet 1 tab PO Q6H PRN PRN (Reason: Pain) RF: 0 ferrous sulfate 325 MG tablet 325 mg PO BID RF: 0 warfarin 1 MG tablet 1 mg PO DAILY RF: 0 pantoprazole 40 MG tablet 20 mg PO DAILY RF: 0 lisinopril 40 mg tablet 40 mg PO DAILY RF: 0 Primary Care Provider: Denny Bourgeois Referrals: Denny Bourgeois MD [Primary Care Provider] - Disposition Disposition: [facility] Facility Discharge Location: [facility] Transitional Care Unit
--- NOTE | 2021-07-10 16:30 | RAD_ITS ---
STUDY: X-RAY - PELVIS REASON FOR EXAM: Female, 85 years old. Acute pain TECHNIQUE: One view of the pelvis was obtained. COMPARISON: MR pelvis from 02/19/2021 FINDINGS: There is a non-specific bowel gas pattern. Normal visualized soft tissue structures. There is diffuse demineralization of the osseous structures. There is narrowing with cortical sclerosis and osteophyte formation of the sacroiliac joint consistent with degenerative osteoarthritic changes. Normal visualized bilateral superior and inferior pubic rami. Normal pubic symphysis. Normal ischial tuberosities. Both hip joints have been previously replaced. Components demonstrate anatomic alignment. Because of the profound osteopenia, a subtle fracture or erosive lesion could easily be overlooked. If there is strong clinical suspicion of either, recommend further evaluation with CT. 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
[2021-07-10 16:47] LABS: ALB/GLOB Ratio 0.5 RATIO (0.9-2.4); AST(SGOT) 10 U/L (15-37); Alanine Aminotransfer ALT/SGPT 9 U/L (13-56); Albumin, Serum 2.4 g/dL (3.2-5.0); Alkaline Phosphatase 143 U/L (45-117); Anion Gap 4 (5-15); BUN 15 mg/dL (7-18); BUN/Creat Ratio 26.5 RATIO (10-20); Calcium,Total 8.3 mg/dL (8.5-10.1); Chloride 108 mmol/L (98-107); Creatinine, Serum 0.57 mg/dL (0.55-1.02); EST Glomerular Filtration Rate 108 mL/min (>60); Est Glom Filt Rate - Afr Amer 131 mL/min (>60); Estimated Creatinine Clearance 28.08 ml/min; Globulin 5.2 g/dL (2.2-4.2); Glucose 86 mg/dL (74-106); Protein, Total 7.6 g/dL (6.4-8.2); Sodium Level 140 mmol/L (136-145)
[2021-07-10 17:01] VITALS: BP 130/55; PULSE 76; RESP 15; O2SAT 98
[2021-07-10 17:03] LABS: Absolute Lymphocyte Count 1.81 X10^3/uL (0.83-4.51); Absolute Neutrophil Count 6.6 X10^3/uL (2.0-7.7); Basophil# 0.07 X10^3/uL; Basophil% 0.7 % (0-1); Eosinophil# 0.23 X10^3/uL; Eosinophils% 2.4 % (0-5); Hematocrit 31.4 % (37-47); Hemoglobin 8.5 g/dL (12.0-15.0); Lymphocyte # 1.81 X10^3/ul (0.83-4.51); Lymphocyte % 19.1 % (19-41); Mean Corp Hgb Conc 27.1 g/dL (32-36); Mean Corpuscular Hgb 20.8 pg (27.0-32.0); Mean Corpuscular Volume 76.8 fL (81-99); Mean Platelet Vol. 9.9 fl (6.2-12.0); Monocyte# 0.72 X10^3/uL; Monocyte% 7.6 % (0-10); NRBC Flagged by Analyzer 0 % (0-5); Neutrophil # 6.58 X10^3/uL (2.7-7.7); Neutrophil % 69.7 % (47-70); Platelet Count 669 K/mm3 (150-450); RBC Distribution Width CV 16.9 % (11.6-14.6); RBC Distribution Width SD 45.7 fl (35.1-43.9); Red Blood Count 4.09 M/mm3 (4.2-5.4); White Blood Count 9.5 K/mm3 (4.4-11.0)
== END 2021-07-10 18:13 ==
PROVIDERS: Emergency Provider Emergency Medicine; PCP Family Medicine
DX: L89.153 Pressure ulcer of sacral region, stage 3 (principal); L89.302 Pressure ulcer of unspecified buttock, stage 2; I10 Essential (primary) hypertension; M06.9 Rheumatoid arthritis, unspecified; E03.9 Hypothyroidism, unspecified; E78.5 Hyperlipidemia, unspecified; F32.9 Major depressive disorder, single episode, unspecified; D64.9 Anemia, unspecified; F41.9 Anxiety disorder, unspecified; G89.29 Other chronic pain; K21.9 Gastro-esophageal reflux disease without esophagitis; H91.93 Unspecified hearing loss, bilateral; Z86.718 Personal history of other venous thrombosis and embolism; Z86.711 Personal history of pulmonary embolism; Z79.01 Long term (current) use of anticoagulants; Z79.899 Other long term (current) drug therapy
CPT/HCPCS: 72170; 80053; 85025; 87426; 96374; 99283; A4216

== ENCOUNTER 2021-07-10 18:20 | Inpatient (IN) | payer MEDICARE, OTHER, SELFPAY ==
[2021-07-10 18:37] VITALS: BP 144/55; PULSE 82; RESP 20; TEMP 36.4; O2SAT 98
--- NOTE | 2021-07-10 21:00 | NURSING ---
Addendum entered by Francisca Lima 07/11/21 01:49: Pt. reports wound to coccyx for a couple years now, patient reports open areas x2 to right hip for the last 4-5 months. Pt. reports resides at home with spouse. Does not stand at home due to left BKA, pt. reports utilizing a power chair and only sliding between chair to bed/bed to chair complicating wound healing. Original Note: Patients states wants to be Full Code. Alert to person/place/time.
--- NOTE | 2021-07-10 21:39 | HP.PCM_ITS ---
HPI - General General Date of Admission: 07/10/21 HPI Narrative 07/10/2021 DEMETRIO KAISER, is a 85 Female who presents to [facility] Emergency Department for placement. Sent from wound center, patient unable to manage wounds at home, needs assisted facility for debility, wound care. 07/10/2021 Admit to TCU with debility, here for rehabilitation, strengthening, wound care, prior to discharge home with . [facility] Medical History (Updated 07/10/21 @ 21:[address] Kenan Contreras MD) Anemia Anxiety Chronic pain Debility Depression DVT (deep venous thrombosis) GERD (gastroesophageal reflux disease) Hearing loss, left Hearing loss, right History of left above knee amputation Hyperlipemia Hypertension Hypothyroidism Pressure injury of coccygeal region, unstageable Pressure injury of hip, stage 3 Pulmonary embolism Rheumatoid arthritis Home Medications levothyroxine 75 mcg PO DAILY 07/28/16 [History Last Taken 01/25/18] simvastatin 20 mg PO QHS 07/28/16 [History Last Taken 01/24/18] hydrocodone-acetaminophen 1 tab PO Q6H PRN PRN 01/25/18 [History Last Taken 01/25/18 06:00] ferrous sulfate 325 mg PO BID 05/25/19 [History Last Taken Unknown] warfarin 0.5 mg PO DAILY 05/25/19 [History Last Taken Unknown] pantoprazole 20 mg PO DAILY 02/16/21 [History Last Taken Unknown] mirtazapine 15 mg PO QHS 07/10/21 [History Last Taken Unknown] Allergy/AdvReac Type Severity Reaction Status Date / Time amoxicillin [From Augmentin] Allergy Hives Verified 05/05/21 14:07 azathioprine [From Imuran] Allergy Hives Verified 05/05/21 14:07 ceftriaxone Allergy Hives Verified 05/05/21 14:07 celecoxib Allergy Hives Verified 05/05/21 14:07 clavulanic acid Allergy Hives Verified 05/05/21 14:07 [From Augmentin] etodolac Allergy Hives Verified 05/05/21 14:07 methotrexate Allergy effect to Verified 05/05/21 14:07 liver NSAIDS (Non-Steroidal Allergy Hives Verified 05/05/21 14:07 Anti-Inflamma Penicillins Allergy Hives Verified 05/05/21 14:07 sulfamethoxazole Allergy Hives Verified 05/05/21 14:07 arthritis medications Allergy effected Uncoded 05/05/21 14:07 the liver Surgical History (Updated 07/10/21 @ 21:[address] Kenan Contreras MD) History of cholecystectomy History of dilation and curettage History of total left knee replacement History of total replacement of both hip joints Social History (Updated 07/10/21 @ 16:[address] Zia Reed MD) household members: spouse housing: house Smoking Status: Never smoker alcohol intake: never substance use type: does not use ROS Constitutional Constitutional: Denies chills, fever(s) or weight gain ENT HEENT: Denies headache(s), nasal congestion or nasal discharge Cardiovascular Cardiovascular: Denies chest pain or palpitations Respiratory/Chest Respiratory/Chest: Denies cough, excessive phlegm production or shortness of breath with exertion Gastrointestinal Gastrointestinal: Denies abdominal pain, nausea or vomiting Genitourinary Genitourinary: Denies dysuria Musculoskeletal Musculoskeletal: Denies joint pain or joint swelling Integumentary Integumentary: Denies rash or wounds Neurologic Neurologic: Denies focal weakness, numbness or tingling Psychiatric Psychiatric: Reports auditory hallucinations; Denies anxiety, depression, homicidal ideation or suicidal ideation Vital Signs Vital Signs Vital Signs: 07/10/21 18:37 Temperature 97.5 F L Temperature Source Temporal Pulse Rate 82 Respiratory Rate 20 H Blood Pressure 144/55 H Blood Pressure Mean 84 Blood Pressure Source Monitor Blood Pressure Position Semi-Fowlers Blood Pressure Location Right Arm Pulse Ox 98 Oxygen Delivery Method Room Air Physical Exam Const alert and oriented x3 General Appearance: cooperative HEENT normocephalic Eyes PERRL and EOMs intact bilaterally Neck supple, no JVD and no carotid bruits Resp normal respiratory effort, normal air movement and clear to auscultation bilaterally Cardio regular rate and regular rhythm GI normal to inspection, nondistended, normoactive bowel sounds, non-tender and non-distended Extremity normal capillary refill Extremity Narrative: Left above the knee amputation. General Extremity: Negative for edema Skin Skin Narrative: Sacral pressure ulcer per wound nurse. General Skin Exam: no breakdown Psych affect normal Appearance: appropriate Results Lab / Micro Data Result Diagrams: 07/11/21 05:22 07/11/21 05:22 Assessment & Plan Assessment/Plan (1) Debility: (2) Decubitus ulcer of buttock, stage 2: (3) Sacral decubitus ulcer, stage III: (4) Rheumatoid arthritis: (5) Hypothyroidism: (6) Hyperlipidemia: (7) Iron deficiency anemia: (8) Gastroesophageal reflux disease: (9) Hypertension: (10) Pulmonary embolism: PLAN: 85 year old female with below past medical history significant for multiple pressure ulcers of buttock/sacrum, admitted to TCU with debility, here for rehabilitation, strengthening, wound care, prior to discharge home with . * Debility - PT/OT. * Pain - Tylenol 1000mg Q6H prn pain (1-3), Oxycodone 5mg Q4H prn pain (4-10), Arthritis Compound cream 2 clicks BID right elbow. * Bowel - Miralax 17gm daily, senna/colace 1 tablet twice daily, Dulcolax 10mg daily PRN. * Adult immunization - Administer prevnar 13, pneumovax 23, fluzone, covid 19 vaccine as appropriate. * DVT prophylaxis - Not necessary, already on warfarin. * Hyperlipidemia - Atorvastatin 10mg QHS. * Iron deficiency anemia - Ferrex 150mg twice daily, Hemoglobin 7.4, transfuse 2 units PRBC. * Hypothyroidism - Levothyroxine 75mcg daily. * Hypertension - Lisinopril 40mg daily. * GERD - Pantoprazole 20mg daily. * Pulmonary embolism - Warfarin 0.5mg daily, monitor INR. * Stage 3 right buttock/sacral pressure ulcer - wound care.
[2021-07-10] MEDS: oxyCODONE 5 MG Tablet PO (22:13)
[2021-07-10] MEDS: Atorvastatin Calcium 10 MG Tablet PO (22:14)
[2021-07-10 23:00] VITALS: PULSE 78; RESP 14; O2SAT 98
[2021-07-11] MEDS: oxyCODONE 5 MG Tablet PO ×3 (03:20→17:40)
[2021-07-11 04:49] VITALS: BP 145/64; PULSE 83; RESP 14; TEMP 36.9; O2SAT 97
[2021-07-11] MEDS: Acetaminophen 500 MG Tablet 1000 MG PO ×2 (04:53→12:53)
[2021-07-11] MEDS: Polyethylene Glycol 3350 17 GM PACKET PO (04:53)
[2021-07-11] MEDS: Lisinopril 40 MG Tablet PO (04:54)
[2021-07-11] MEDS: Levothyroxine 75 MCG Tablet PO (04:54)
[2021-07-11] MEDS: Pantoprazole Sodium 20 MG Tablet PO (04:54)
[2021-07-11] MEDS: Senna/Docusate Sodium 1 Tablet PO ×2 (04:54→17:47)
[2021-07-11] MEDS: 0.9% Saline Lock 10 ML Syringe IV ×2 (05:08→18:30)
[2021-07-11 05:50] LABS: Absolute Lymphocyte Count 2.49 X10^3/uL (0.83-4.51); Absolute Neutrophil Count 4.8 X10^3/uL (2.0-7.7); Basophil# 0.07 X10^3/uL; Basophil% 0.8 % (0-1); Eosinophil# 0.31 X10^3/uL; Eosinophils% 3.7 % (0-5); Hematocrit 26.8 % (37-47); Hemoglobin 7.4 g/dL (12.0-15.0); Lymphocyte # 2.49 X10^3/ul (0.83-4.51); Mean Corp Hgb Conc 27.6 g/dL (32-36); Mean Corpuscular Hgb 20.5 pg (27.0-32.0); Mean Corpuscular Volume 74.2 fL (81-99); Mean Platelet Vol. 8.8 fl (6.2-12.0); Monocyte% 7.2 % (0-10); NRBC Flagged by Analyzer 0 % (0-5); Neutrophil # 4.79 X10^3/uL (2.7-7.7); Neutrophil % 57.9 % (47-70); Platelet Count 572 K/mm3 (150-450); RBC Distribution Width CV 16.7 % (11.6-14.6); RBC Distribution Width SD 45.1 fl (35.1-43.9); Red Blood Count 3.61 M/mm3 (4.2-5.4); White Blood Count 8.3 K/mm3 (4.4-11.0)
[2021-07-11 06:28] LABS: BUN 13 mg/dL (7-18); Creatinine, Serum 0.44 mg/dL (0.55-1.02); EST Glomerular Filtration Rate 145 mL/min (>60); Glucose 87 mg/dL (74-106)
[2021-07-11 06:29] LABS: Anion Gap 4 (5-15); BUN/Creat Ratio 29.5 RATIO (10-20); Calcium,Total 8.1 mg/dL (8.5-10.1); Chloride 107 mmol/L (98-107); Est Glom Filt Rate - Afr Amer 175 mL/min (>60); Sodium Level 138 mmol/L (136-145)
[2021-07-11 06:43] LABS: International Normalized Ratio 3.9; Prothrombin Time (Protime)PT. 37.2 SECONDS (11.7-14.9)
--- NOTE | 2021-07-11 06:47 | PCA ---
Informed nurse that pt could benefit from a purewick due to when she uses the bedpan the urine just drains back into her wound/dressing.
[2021-07-11] MEDS: Iron Polysaccharide Complex 150 MG CAPSULE PO ×2 (09:30→17:46)
[2021-07-11] MEDS: Arthritis Pain Compound 60 CLICK TUBE TOPICAL ×2 (10:41→17:47)
[2021-07-11] MEDS: Tuberculin,Purif.prot.deriv. 50 TU/ML Vial 0.1 ML ID (10:43)
--- NOTE | 2021-07-11 14:58 | NURSING ---
wound photo: sacrum
--- NOTE | 2021-07-11 14:58 | NURSING ---
wound photo: right upper buttock/hip
--- NOTE | 2021-07-11 14:59 | NURSING ---
wound photo: right knee
[2021-07-11 16:36] VITALS: BP 113/73; PULSE 77; RESP 18; TEMP 37; O2SAT 96
[2021-07-11] MEDS: Warfarin 0.5 MG Tablet PO (17:46)
[2021-07-11] MEDS: Juven (unflavored) Packet 1 PACKET PO (17:47)
[2021-07-11] MEDS: Atorvastatin Calcium 10 MG Tablet PO (20:12)
[2021-07-12] MEDS: Levothyroxine 75 MCG Tablet PO (05:21)
[2021-07-12] MEDS: Arthritis Pain Compound 60 CLICK TUBE TOPICAL ×2 (05:21→17:36)
[2021-07-12] MEDS: Lisinopril 40 MG Tablet PO (05:21)
[2021-07-12] MEDS: Polyethylene Glycol 3350 17 GM PACKET PO (05:21)
[2021-07-12] MEDS: Senna/Docusate Sodium 1 Tablet PO ×2 (05:21→17:35)
[2021-07-12] MEDS: Pantoprazole Sodium 20 MG Tablet PO (05:21)
[2021-07-12 06:19] VITALS: BP 124/60; PULSE 85
[2021-07-12] MEDS: Iron Polysaccharide Complex 150 MG CAPSULE PO ×2 (07:45→17:34)
[2021-07-12] MEDS: Juven (unflavored) Packet 1 PACKET PO ×2 (07:46→17:35)
[2021-07-12] MEDS: oxyCODONE 5 MG Tablet PO ×2 (09:18→15:04)
[2021-07-12 14:24] VITALS: BP 136/66; PULSE 89; RESP 18; TEMP 37.2; O2SAT 98
--- NOTE | 2021-07-12 16:06 | CASEMGMT ---
Social Work SW met with pt for initial assessment. Discussed code status and assisted pt in completing MOLST form. Pt wishes for Full code with intubation. MOLST form communicated to physician and placed in pt chart. Physician requesting palliative referral. Referral made. BILLIE explained Medicare benefit. Pt lives at home with her who is also in a wheelchair. Pt report her dgt Lakia helps and she has [employer] girls that help with bathing and cleaning. Pt denies any problems in the home. Home Health BILLIE, RN and Wound Center MONOGRAM TECHNICIAN report pt is unsafe to return home as she is not getting the care that she needs. Pt presents with stage 3 sacral decubitus ulcer. Pt states that she plans to return home but knows someday she will have to go to a fci and would like that to be [facility]. BILLIE will continue to follow. [facility]
--- NOTE | 2021-07-12 16:10 | PCM.PN.RX ---
Progress Note - Pharmacy Subjective: TCU ADMISSION Objective: Allergies amoxicillin [From Augmentin] Allergy (Verified 05/05/21 14:07) Hives azathioprine [From Imuran] Allergy (Verified 05/05/21 14:07) Hives ceftriaxone Allergy (Verified 05/05/21 14:07) Hives celecoxib Allergy (Verified 05/05/21 14:07) Hives clavulanic acid [From Augmentin] Allergy (Verified 05/05/21 14:07) Hives etodolac Allergy (Verified 05/05/21 14:07) Hives methotrexate Allergy (Verified 05/05/21 14:07) effect to liver NSAIDS (Non-Steroidal Anti-Inflamma Allergy (Verified 05/05/21 14:07) Hives Penicillins Allergy (Verified 05/05/21 14:07) Hives sulfamethoxazole Allergy (Verified 05/05/21 14:07) Hives arthritis medications Allergy (Uncoded 05/05/21 14:07) effected the liver Current Medications Generic Name Dose Route Start Last Admin Trade Name Freq PRN Reason Stop Dose Admin Acetaminophen 1,000 mg 07/10/21 21:50 07/11/21 12:53 Acetaminophen 500 Mg Tablet PO 1,000 mg Q6H PRN PRN Administration Pain Score 1-3 Atorvastatin Calcium 10 mg 07/10/21 22:00 07/11/21 20:12 Atorvastatin Calcium 10 Mg Tablet PO 10 mg QHS JANETT Administration Bisacodyl 10 mg 07/10/21 21:50 Bisacodyl 5 Mg Tablet PO DAILY PRN CONSTIPATION Compound Med 0 click 07/11/21 18:00 07/12/21 05:21 Arthritis Pain Compound 60 Click Tube TOPICAL 1 click BID JANETT Administration Protocol L-Arginine/L-Glutamine/Calcium HMB 1 packet 07/11/21 17:00 07/12/21 07:46 Jerry (Unflavored) Packet PO 1 packet BIDCM JANETT Administration Levothyroxine Sodium 75 mcg 07/11/21 06:00 07/12/21 05:21 Levothyroxine 75 Mcg Tablet PO 75 mcg DAILY@0600 JANETT Administration Lisinopril 40 mg 07/11/21 06:00 07/12/21 05:21 Lisinopril 40 Mg Tablet PO 40 mg DAILY JANETT Administration Oxycodone HCl 5 mg 07/10/21 21:50 07/12/21 15:04 Oxycodone 5 Mg Tablet PO 5 mg Q4H PRN PRN Administration Pain Score 4-10 Pantoprazole Sodium 20 mg 07/11/21 06:00 07/12/21 05:21 Pantoprazole Sodium 20 Mg Tablet PO 20 mg DAILY JANETT Administration Polyethylene Glycol 17 gm 07/11/21 06:00 07/12/21 05:21 Polyethylene Glycol 3350 17 Gm Packet PO 17 gm DAILY JANETT Administration Polysaccharide Iron Complex 150 mg 07/11/21 08:00 07/12/21 07:45 Iron Polysaccharide Complex 150 Mg Capsule PO 150 mg BIDCM JANETT Administration Senna/Docusate Sodium 1 tablet 07/11/21 06:00 07/12/21 05:21 Senna/Docusate Sodium 1 Tablet PO 1 tablet BID JANETT Administration Sodium Chloride 10 - 40 ml 07/11/21 00:44 07/11/21 18:30 0.9% Saline Lock 10 Ml Syringe IV 10 ml UD PRN Administration SALINE FLUSH Tuberculin PPD 0.1 ml 07/18/21 10:00 Tuberculin,Purif.Prot.Deriv. 50 Tu/Ml Vial ID 07/18/21 10:01 X1 ONE Problem List (Last Updated 07/10/21 @ 21:[address] Kenan Contreras MD) Pulmonary embolism (Acute) Hypertension (Chronic) Gastroesophageal reflux disease (Acute) Iron deficiency anemia (Acute) Hyperlipidemia (Acute) Hypothyroidism (Acute) Rheumatoid arthritis (Acute) Sacral decubitus ulcer, stage III (Acute) Decubitus ulcer of buttock, stage 2 (Acute) Debility (Acute) Vital Signs Temp Pulse Resp BP Pulse Ox 99 F 89 18 136/66 H 98 07/12/21 14:24 07/12/21 14:24 07/12/21 14:24 07/12/21 14:24 07/12/21 14:24 Oxygen Delivery Method Room Air Weight: 43.318 kg Sodium 138 mmol/L (136-145) 07/11/21 05:22 Potassium 4.0 mmol/L (3.5-5.1) 07/11/21 05:22 Chloride 107 mmol/L (98-107) 07/11/21 05:22 Carbon Dioxide 27.0 mmol/L (21.0-32.0) 07/11/21 05:22 Anion Gap 4 (5-15) L 07/11/21 05:22 BUN 13 mg/dL (7-18) 07/11/21 05:22 Creatinine 0.44 mg/dL (0.55-1.02) L 07/11/21 05:22 Est GFR (MDRD) Af Amer 175 mL/min (>60) 07/11/21 05:22 Est GFR (MDRD) Non-Af 145 mL/min (>60) 07/11/21 05:22 BUN/Creatinine Ratio 29.5 RATIO (10-20) H 07/11/21 05:22 Glucose 87 mg/dL (74-106) 07/11/21 05:22 Assessment/Plan: 1. Pain: Tylenol 1000mg PO Q6h PRN Pain 1-3, Oxycodone 5mg PO Q4h PRN Pain 4-10, Arthritis Compounded cream 2 clicks BID to right elbow. Please continue to monitor for increased/decreased pain, PRN medication usage, medication effectiveness. *2. History of PE: INR on 07/11 elevated = 3.9, typically takes warfarin at home. Please continue to monitor INR and resume warfarin once INR therapeutic, thanks. Please continue to monitor for ans S/S bleeding/bruising d/t supratherapeutic INR. 3. HTN/ HLD: Lisinopril 40mg PO Daily, Lipitor 10mg PO QHS. Please continue to monitor BP, pulse, renal function, electrolytes, lipid panel annually or sooner if clinically indicated. 4. Hypothyroid: Synthroid 75mcg PO Daily. Please continue to monitor TSH and thyroid function tests as clinically indicated. 5. Iron Deficiency Anemia: Ferrex 150mg PO BID. Please continue to monitor Iron studies as clinically indicated, patient had 2 unit PRBC already. Please continue to monitor H/H closely. 6. GERD: Protonix 20mg PO Daily. Please continue to monitor for medication effectiveness, encourage non-pharmacologic treatments to reduce GERD exacerbations as well. Psychotropic Medications: None Unnecessary Medications: None Bowel Regimen: Miralax 17g PO Daily, Senna/Docusate 1 tab PO BID, Dulcolax 10mg PO Daily PRN. Please continue to monitor for increased/decreased constipation and/or diarrhea. Date of Note:: 07/12/21
--- NOTE | 2021-07-12 16:23 | CHAPLAIN ---
Type of Pastoral Visit _x__ Initial Visit ___ Follow-up Visit ___ On-call Visit ___ General Patient Visit ___ Spiritual Assessment ___ Family Conference ___ Bereavement ___ Rapid Response ___ Code Blue ___ Other (describe below) Pastoral Care Referral From _x__ Patient ___ Family ___ Nurse ___ Physician ___ Project Production Engineer ___ Rn Production ___ Other (describe below) Sacrament/Intervention _x__ Active listening ___ Anointing ___ Mormon ___ Bereavement ___ Communion ___ Huma exploration ___ _x__ Life review _x__ Prayer ___ Reconciliation ___ Sacrament of Sick _x__ Supportive presence ___ Wedding ___ Other (describe below) Pastoral Comments patient is pleasant and readily gives praise to the staff of TCU for a great situation; pt describes her health issue and need for extra care at this time; 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
[2021-07-12] MEDS: Atorvastatin Calcium 10 MG Tablet PO (20:33)
[2021-07-13] MEDS: oxyCODONE 5 MG Tablet PO ×4 (05:19→21:04)
[2021-07-13] MEDS: Polyethylene Glycol 3350 17 GM PACKET PO (05:20)
[2021-07-13] MEDS: Arthritis Pain Compound 60 CLICK TUBE TOPICAL ×2 (05:20→17:04)
[2021-07-13] MEDS: Senna/Docusate Sodium 1 Tablet PO ×2 (05:21→17:05)
[2021-07-13] MEDS: Lisinopril 40 MG Tablet PO (05:21)
[2021-07-13] MEDS: Pantoprazole Sodium 20 MG Tablet PO (05:21)
[2021-07-13] MEDS: Levothyroxine 75 MCG Tablet PO (05:21)
[2021-07-13 05:52] LABS: Hematocrit 34.9 % (37-47); Hemoglobin 10.3 g/dL (12.0-15.0)
[2021-07-13] MEDS: Juven (unflavored) Packet 1 PACKET PO ×2 (08:38→17:04)
[2021-07-13] MEDS: Iron Polysaccharide Complex 150 MG CAPSULE PO ×2 (08:38→17:03)
[2021-07-13] MEDS: Acetaminophen 500 MG Tablet 1000 MG PO (08:40)
[2021-07-13 08:41] LABS: International Normalized Ratio 2.5; Prothrombin Time (Protime)PT. 25.9 SECONDS (11.7-14.9)
--- NOTE | 2021-07-13 14:29 | PCM.CONS.P ---
Assessment & Plan Assessment/Plan (1) Chronic pain: QUALIFIERS: Chronic pain type: other chronic pain Qualified Code(s): G89.29 - Other chronic pain (2) Sacral decubitus ulcer, stage III: (3) Decubitus ulcer of buttock, stage 2: (4) Rheumatoid arthritis: (5) Debility: (6) Iron deficiency anemia: PLAN: DEMETRIO KAISER, is a 85 F who was referred to [facility] for management of debility, weight loss and functional decline. She has not decided whether she wants Palliative to follow care at this time. Palliative Liaison to follow up in the next week. Plan is as follows if Palliative follows while at TCU or home: 1) chronic pain/ Decub ulcers/RA: suggested specialty mattress for better pressure relief of ulcers. Continue wound care as currently ordered. May benefit from routine Oxycodone dose with PRN. Does not appear to be a candidate for Methadone with QTC of 469 in February 2021. Lyrica or Gabapentin may be an option. Arthritis compound appears to be effective. 2) Debility: Related to poor nutritional intake and RA. Addition of SSRI may be beneficial for appetite and wellbeing and outlooks. PT/OT as able. Palliative willing to provide support and symptom management if patient chooses to sign with [facility]. 3) Anemia/chronic conditions complicate care and management. Defer to PCP and specialist. Thank you for the opportunity to participate in this patient's care, please do not hesitate to contact [facility] with any further questions or concerns. Palliative direct line is [phone]. Greater than 50% of F2F visit dedicated to education and counseling of palliative care services. Palliative liaison to follow up to see if patient would like to sign on to services. TIME IN: 2:00PM TIME OUT: 3:22 PM HPI Consult Data Date of Consult: 07/13/21 HPI Narrative HPI Narrative: DEMETRIO KAISER, is a 85 F who was referred to [facility] for management of debility, weight loss and functional decline. She was sent to [facility] ER from the Wound care center due to multiple nonhealing wounds. Concern voiced was that they were not being properly managed on an outpatient setting. She was direct admitted to TCU with debility rehabilitation, strengthening, wound care, prior to discharge home with . Hb was 7.4 on 07/11/21 and patient received 2 units of PRBCs. 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 Patient wishes to be a full code with intubation. Patient was living at home with her who is in a wheelchair. Reports that her daughter, Lakia and Aurelio girls that help with bathing and cleaning. Home health SW and Wound care express concern about her return home. Upon entry, patient noted lying in bed grimacing in pain. Unable to describe but verifies that it is her coccyx ulcers. Repositioned for comfort three times during visit and patient voices relief. Medicated with Oxycodone and has Tylenol PRN as well. Discussed Palliative services and questions answered. I just don't know anything right now. I just want to get better and go back home. Understanding voiced that she will need to be inpatient awhile and assess from there the next steps. Denies any dyspnea, chest pain or abdominal pain. Most of her pain is related to her ulcers and reports that RA pain is manageable. Agreeable to have Palliative liaison check back with patient in the next week or two for further discussion. [facility] Medical History Anemia Anxiety Chronic pain Debility Depression DVT (deep venous thrombosis) GERD (gastroesophageal reflux disease) Hearing loss, left Hearing loss, right History of left above knee amputation Hyperlipemia Hypertension Hypothyroidism Pressure injury of coccygeal region, unstageable Pressure injury of hip, stage 3 Pulmonary embolism Rheumatoid arthritis Home Medications levothyroxine 75 mcg PO DAILY 07/28/16 [History Last Taken 01/25/18] simvastatin 20 mg PO QHS 07/28/16 [History Last Taken 01/24/18] hydrocodone-acetaminophen 1 tab PO Q6H PRN PRN 01/25/18 [History Last Taken 01/25/18 06:00] ferrous sulfate 325 mg PO BID 05/25/19 [History Last Taken Unknown] warfarin 0.5 mg PO DAILY 05/25/19 [History Last Taken Unknown] pantoprazole 20 mg PO DAILY 02/16/21 [History Last Taken Unknown] mirtazapine 15 mg PO QHS 07/10/21 [History Last Taken Unknown] Allergy/AdvReac Type Severity Reaction Status Date / Time amoxicillin [From Augmentin] Allergy Hives Verified 05/05/21 14:07 azathioprine [From Imuran] Allergy Hives Verified 05/05/21 14:07 ceftriaxone Allergy Hives Verified 05/05/21 14:07 celecoxib Allergy Hives Verified 05/05/21 14:07 clavulanic acid Allergy Hives Verified 05/05/21 14:07 [From Augmentin] etodolac Allergy Hives Verified 05/05/21 14:07 methotrexate Allergy effect to Verified 05/05/21 14:07 liver NSAIDS (Non-Steroidal Allergy Hives Verified 05/05/21 14:07 Anti-Inflamma Penicillins Allergy Hives Verified 05/05/21 14:07 sulfamethoxazole Allergy Hives Verified 05/05/21 14:07 arthritis medications Allergy effected Uncoded 05/05/21 14:07 the liver Surgical History History of cholecystectomy History of dilation and curettage History of total left knee replacement History of total replacement of both hip joints Social History household members: spouse housing: house Smoking Status: Never smoker alcohol intake: never substance use type: does not use ROS Constitutional Constitutional: Reports weakness and other Details: frail, thin Cardiovascular Cardiovascular: Denies chest pain, dyspnea at rest, lightheadedness or nausea Respiratory/Chest Respiratory/Chest: Denies chest congestion, chest tightness or dyspnea on exertion Gastrointestinal Gastrointestinal: Denies abdominal pain or constipation Musculoskeletal Musculoskeletal: Reports back pain, joint pain, joint stiffness and other Details: left AKA Integumentary Integumentary: Reports wounds Neurologic Neurologic: Denies abnormal hearing, abnormal movements or abnormal speech Psychiatric Psychiatric: Denies anxiety, auditory hallucinations or behavioral changes Physical Exam Const alert and oriented x3 General Appearance: cooperative and in distress Positive for moderate (grimacing in pain) HEENT Head and Scalp: normal to inspection and normocephalic Nose: external nose normal and nares normal Neck supple General: trachea midline Chest Chest: symmetrical chest wall rise Resp normal respiratory effort and normal air movement Effort and Inspection: able to speak in complete sentences Auscultation: clear to auscultation bilaterally Cardio regular rate, regular rhythm, S1 normal heart sound and S2 normal heart sound GI normal to inspection, nondistended, normoactive bowel sounds Bladder / Kidney Exam: catheter in place Extremity no pedal edema Extremity Narrative: Left AKA General Extremity: amputation Skin Wound Narrative: Sacral wounds. Refer to nursing or wound care notes
[2021-07-13 16:00] VITALS: BP 90/42; PULSE 73; RESP 16; TEMP 36.4; O2SAT 96
[2021-07-13] MEDS: Warfarin 0.5 MG Tablet PO (17:04)
[2021-07-13] MEDS: Atorvastatin Calcium 10 MG Tablet PO (21:04)
[2021-07-14] MEDS: oxyCODONE 5 MG Tablet PO ×3 (02:46→21:07)
[2021-07-14] MEDS: Acetaminophen 500 MG Tablet 1000 MG PO (04:30)
[2021-07-14] MEDS: 0.9% Saline Lock 10 ML Syringe IV ×2 (04:31→09:56)
[2021-07-14] MEDS: Arthritis Pain Compound 60 CLICK TUBE TOPICAL ×2 (04:32→17:06)
[2021-07-14] MEDS: Levothyroxine 75 MCG Tablet PO (04:33)
[2021-07-14] MEDS: Pantoprazole Sodium 20 MG Tablet PO (04:33)
[2021-07-14 04:41] VITALS: BP 87/43; PULSE 75; RESP 14; TEMP 36.9; O2SAT 98
[2021-07-14 06:19] VITALS: BP 89/46; PULSE 72
[2021-07-14 08:57] VITALS: BP 75/40; PULSE 62; RESP 18; TEMP 36.7; O2SAT 98
--- NOTE | 2021-07-14 09:00 | NURSING ---
Addendum entered by Charlene Hadley 07/14/21 12:06: Pt Blood Pressure rechecked BP 97/43 Encouraged pt to drink fluids. Original Note: Pt BP this am was 75/40, pt reported feeling tired, urine is christian in color, and intake poor. Zestril held per nursing judgment Dr. Contreras updated and N.O 1,000cc NS bolus, recheck BMP and d/c Zestril.
[2021-07-14] MEDS: Juven (unflavored) Packet 1 PACKET PO ×2 (09:02→17:06)
[2021-07-14] MEDS: Iron Polysaccharide Complex 150 MG CAPSULE PO ×2 (09:02→17:06)
[2021-07-14] MEDS: 0.9% Normal Saline 1,000 ML 1000 ML IV (09:50)
[2021-07-14 10:00] VITALS: PULSE 84; RESP 18; O2SAT 98
[2021-07-14 10:34] LABS: Anion Gap 6 (5-15); BUN 51 mg/dL (7-18); Calcium,Total 8.2 mg/dL (8.5-10.1); Chloride 103 mmol/L (98-107); Creatinine, Serum 0.96 mg/dL (0.55-1.02); EST Glomerular Filtration Rate 59 mL/min (>60); Est Glom Filt Rate - Afr Amer 71 mL/min (>60); Estimated Creatinine Clearance 30.36 ml/min; Glucose 137 mg/dL (74-106); Potassium 4.6 mmol/L (3.5-5.1); Sodium Level 136 mmol/L (136-145)
[2021-07-14 11:55] VITALS: BP 97/43; PULSE 77
[2021-07-14] MEDS: Warfarin 0.5 MG Tablet PO (17:05)
[2021-07-14] MEDS: Atorvastatin Calcium 10 MG Tablet PO (21:06)
--- NOTE | 2021-07-14 22:39 | NURSING ---
pt put dean of instruction light. This nurse entered room. pt stated she picked at a pimple on her chin which she made bleed. Assisted in cleaning chin and hands and encouraged pt on the importance of not picking at skin. pt stated she gets stressed out and picks at her skin. Applied bandage to chin and encouraged pt to leave bandage in place until the morning.
[2021-07-15 05:40] LABS: Hematocrit 33.4 % (37-47); Hemoglobin 9.5 g/dL (12.0-15.0)
[2021-07-15] MEDS: Levothyroxine 75 MCG Tablet PO (05:49)
[2021-07-15] MEDS: Arthritis Pain Compound 60 CLICK TUBE TOPICAL ×2 (05:49→17:12)
[2021-07-15] MEDS: Pantoprazole Sodium 20 MG Tablet PO (05:49)
[2021-07-15] MEDS: 0.9% Saline Lock 10 ML Syringe IV (05:50)
[2021-07-15] MEDS: oxyCODONE 5 MG Tablet PO ×3 (05:54→21:25)
[2021-07-15] MEDS: Iron Polysaccharide Complex 150 MG CAPSULE PO ×2 (08:59→17:13)
[2021-07-15] MEDS: Juven (unflavored) Packet 1 PACKET PO ×2 (08:59→17:12)
[2021-07-15 14:23] VITALS: BP 108/51; PULSE 84; RESP 18; TEMP 37.2; O2SAT 93
[2021-07-15] MEDS: Acetaminophen 500 MG Tablet 1000 MG PO (17:10)
[2021-07-15] MEDS: Warfarin 0.5 MG Tablet PO (17:13)
[2021-07-15] MEDS: Atorvastatin Calcium 10 MG Tablet PO (21:25)
[2021-07-16] MEDS: Acetaminophen 500 MG Tablet 1000 MG PO (03:22)
[2021-07-16] MEDS: oxyCODONE 5 MG Tablet PO ×4 (03:22→23:40)
[2021-07-16 05:40] VITALS: BP 109/44; PULSE 60; RESP 16; TEMP 36.3; O2SAT 98
[2021-07-16] MEDS: Arthritis Pain Compound 60 CLICK TUBE TOPICAL ×2 (05:45→17:32)
[2021-07-16] MEDS: Polyethylene Glycol 3350 17 GM PACKET PO (05:46)
[2021-07-16] MEDS: Pantoprazole Sodium 20 MG Tablet PO (05:46)
[2021-07-16] MEDS: Senna/Docusate Sodium 1 Tablet PO ×2 (05:46→17:32)
[2021-07-16] MEDS: Levothyroxine 75 MCG Tablet PO (05:47)
[2021-07-16] MEDS: 0.9% Saline Lock 10 ML Syringe IV ×2 (05:51→19:36)
[2021-07-16] MEDS: Iron Polysaccharide Complex 150 MG CAPSULE PO ×2 (08:21→17:32)
[2021-07-16] MEDS: Juven (unflavored) Packet 1 PACKET PO ×2 (08:21→17:32)
--- NOTE | 2021-07-16 09:57 | CASEMGMT ---
BIMS and PHQ9 interviews completed on this date for MDS assessment. [facility]
--- NOTE | 2021-07-16 12:08 | NURSING ---
drsg changed to sacrum as ordered d/t pt having BM and stool got on drsg. pt repositioned on rt side. call light in reach.
--- NOTE | 2021-07-16 15:54 | WOUNDNOTE ---
wound photo: right upper buttock
--- NOTE | 2021-07-16 15:54 | PT ---
Pt was max A x 2 for squat pivot transfers from bed<>recliner to R side with arm in arm assist. Educated staff on transfers with pt. Pt is NOT to be a abad for transfers due to current sling being too large and pt is at risk for sliding out of sling.
--- NOTE | 2021-07-16 15:55 | WOUNDNOTE ---
wound photo: sacrum
[2021-07-16 16:09] VITALS: BP 128/88; PULSE 86; RESP 12; TEMP 36.7; O2SAT 96
[2021-07-16] MEDS: Warfarin 0.5 MG Tablet PO (17:32)
[2021-07-16] MEDS: Atorvastatin Calcium 10 MG Tablet PO (19:34)
[2021-07-16 19:37] VITALS: PULSE 84; RESP 16; O2SAT 95
[2021-07-17] MEDS: Arthritis Pain Compound 60 CLICK TUBE TOPICAL ×2 (05:46→17:32)
[2021-07-17] MEDS: oxyCODONE 5 MG Tablet PO ×2 (05:46→21:33)
[2021-07-17] MEDS: Pantoprazole Sodium 20 MG Tablet PO (05:46)
[2021-07-17] MEDS: Levothyroxine 75 MCG Tablet PO (05:46)
[2021-07-17] MEDS: Senna/Docusate Sodium 1 Tablet PO ×2 (05:46→17:32)
[2021-07-17] MEDS: Polyethylene Glycol 3350 17 GM PACKET PO (05:49)
[2021-07-17] MEDS: Iron Polysaccharide Complex 150 MG CAPSULE PO ×2 (09:17→17:31)
[2021-07-17] MEDS: Juven (unflavored) Packet 1 PACKET PO ×2 (09:17→17:31)
[2021-07-17 10:00] VITALS: PULSE 78; RESP 16; O2SAT 97
--- NOTE | 2021-07-17 14:43 | NURSING ---
Resident and spouse, Ben, notified of COVID status on the unit.
[2021-07-17 16:31] VITALS: BP 113/53; PULSE 84; RESP 14; TEMP 37; O2SAT 95
[2021-07-17] MEDS: Warfarin 0.5 MG Tablet PO (17:31)
[2021-07-17] MEDS: Atorvastatin Calcium 10 MG Tablet PO (21:33)
[2021-07-18 05:54] VITALS: BP 112/55; PULSE 73; RESP 16; TEMP 36.7; O2SAT 96
[2021-07-18] MEDS: Arthritis Pain Compound 60 CLICK TUBE TOPICAL ×3 (05:56→20:40)
[2021-07-18] MEDS: Polyethylene Glycol 3350 17 GM PACKET PO (05:56)
[2021-07-18] MEDS: Pantoprazole Sodium 20 MG Tablet PO (05:57)
[2021-07-18] MEDS: Levothyroxine 75 MCG Tablet PO (05:57)
[2021-07-18] MEDS: Acetaminophen 500 MG Tablet 1000 MG PO (05:57)
[2021-07-18] MEDS: Senna/Docusate Sodium 1 Tablet PO ×2 (05:57→17:41)
[2021-07-18 05:59] LABS: Absolute Lymphocyte Count 2.18 X10^3/uL (0.83-4.51); Absolute Neutrophil Count 4.9 X10^3/uL (2.0-7.7); Basophil# 0.07 X10^3/uL; Basophil% 0.8 % (0-1); Eosinophil# 0.28 X10^3/uL; Eosinophils% 3.3 % (0-5); Hematocrit 36.2 % (37-47); Hemoglobin 10.4 g/dL (12.0-15.0); Lymphocyte # 2.18 X10^3/ul (0.83-4.51); Mean Corp Hgb Conc 28.7 g/dL (32-36); Mean Corpuscular Hgb 22.2 pg (27.0-32.0); Mean Corpuscular Volume 77.2 fL (81-99); Mean Platelet Vol. 8.9 fl (6.2-12.0); Monocyte# 0.85 X10^3/uL; Monocyte% 10.2 % (0-10); NRBC Flagged by Analyzer 0 % (0-5); Neutrophil # 4.94 X10^3/uL (2.7-7.7); Neutrophil % 59.1 % (47-70); POSITIVE MORPHOLOGY YES; Platelet Count 606 K/mm3 (150-450); RBC Distribution Width CV 20.1 % (11.6-14.6); RBC Distribution Width SD 54.9 fl (35.1-43.9); Red Blood Count 4.69 M/mm3 (4.2-5.4); White Blood Count 8.4 K/mm3 (4.4-11.0)
[2021-07-18 06:05] LABS: Differential Indicated SCAN CRITERIA MET
[2021-07-18 06:28] LABS: Anion Gap 6 (5-15); BUN 44 mg/dL (7-18); BUN/Creat Ratio 84.3 RATIO (10-20); Calcium,Total 8.5 mg/dL (8.5-10.1); Chloride 105 mmol/L (98-107); Creatinine, Serum 0.52 mg/dL (0.55-1.02); EST Glomerular Filtration Rate 119 mL/min (>60); Est Glom Filt Rate - Afr Amer 144 mL/min (>60); Estimated Creatinine Clearance 29.15 ml/min; Glucose 101 mg/dL (74-106); Potassium 3.9 mmol/L (3.5-5.1); Sodium Level 139 mmol/L (136-145)
[2021-07-18 06:34] LABS: Differential Comment SCANNED
[2021-07-18] MEDS: Juven (unflavored) Packet 1 PACKET PO ×2 (07:55→17:41)
[2021-07-18] MEDS: Tuberculin,Purif.prot.deriv. 50 TU/ML Vial 0.1 ML ID (10:40)
[2021-07-18] MEDS: Iron Polysaccharide Complex 150 MG CAPSULE PO ×2 (10:40→17:41)
--- NOTE | 2021-07-18 11:59 | CASEMGMT ---
Social Work Plan of care meeting held with pt present and pt daughter Marcia and Hasmukh on conference call. Pt is receiving PT/OT/ST and wound care from nursing. Pt is participating in therapies. Pt and family updated that Medicare is covering stay and that d/c has not been set yet. Isak, Liaison for [facility] present. Pt was living at home with her spouse and support to her family. Home Health reports that pt is not safe to return home as things were before. BILLIE spoke with pt and family regarding this giving options of skilled nursing placement vs. home with hospice care. Isak did speak with pt and family after team meeting regarding services and pt did sign up for Palliative medicine program. Pt will continue with treatment in the TCU at this time. Family and pt will discuss discharge options and SW will follow up. [facility]
--- NOTE | 2021-07-18 13:41 | PN.PALL_ITS ---
Subjective Subjective Patient seen and examined. She is new to this provider but was seen initially by palliative care 07/13, at which time she was unsure if she wanted to follow through with services. She met with the liaison today and family and patient agreeable to services at this time. Patient lying in bed on her left side, does not appear to be in any significant discomfort, however prior to me exiting the room, she was quite uncomfortable and wanted repositioned. It took several minutes to get her comfortable. States her pain is moderately severe at this point. She is pointing to her lower right hip area. No radiation of pain. It is sharp and throbbing. Wanting a pain pill if she is due. States she had diarrhea today. Denies chronic diarrhea. She is unsure if she has chronic constipation at home. No current nausea, vomiting, chest pain, shortness of breath, or numbness and tingling. Objective Data Objective Data Vital Signs: Vital Signs Temp Pulse Resp BP Pulse Ox 98.0 F 73 16 112/55 L 96 07/18/21 05:54 07/18/21 05:54 07/18/21 05:54 07/18/21 05:54 07/18/21 05:54 Oxygen Delivery Method Room Air Weight: 43.318 kg Intake & Output: Intake and Output for Last 24 Hours 07/16/21 07/17/21 07/18/21 23:59 23:59 23:59 Intake Total 400 / 400 360 / 360 180 / 180 Output Total 900 / 900 1200 / 1200 500 / 500 Balance -500 / -500 -840 / -840 -320 / -320 Lab / Micro Data Result Diagrams: 07/18/21 05:05 07/18/21 05:05 Labs: Laboratory Results - last 24 hr 07/18/21 05:05: WBC 8.4, RBC 4.69, Hgb 10.4 L, Hct 36.2 L, MCV 77.2 L, MCH 22.2 L, MCHC 28.7 L, RDW Std Deviation 54.9 H, RDW Coeff of Bailey 20.1 H, Plt Count 606 H, MPV 8.9, Immature Gran % (Auto) 0.600, Neut % (Auto) 59.1, Lymph % (Auto) 26.0, Hamblen % (Auto) 10.2 H, Eos % (Auto) 3.3, Baso % (Auto) 0.8, Absolute Neuts (auto) 4.9, Absolute Lymphs (auto) 2.18, Nucleated RBC % 0, Differential Comment SCANNED 07/18/21 05:05: Sodium 139, Potassium 3.9, Chloride 105, Carbon Dioxide 28.0, Anion Gap 6, BUN 44 H, Creatinine 0.52 L, Estim Creat Clear Calc 29.15, Est GFR (MDRD) Af Amer 144, Est GFR (MDRD) Non-Af 119, BUN/Creatinine Ratio 84.3 H, Glucose 101, Calcium 8.5 Physical Exam Const alert and oriented x3 General Appearance: ill appearing and frail Nutritional Appearance: cachectic Neck supple General: trachea midline Resp normal respiratory effort and normal air movement Effort and Inspection: able to speak in complete sentences Auscultation: clear to auscultation bilaterally Cardio regular rate, regular rhythm, S1 normal heart sound and S2 normal heart sound Extremity no pedal edema Extremity Narrative: Left AKA General Extremity: amputation Skin Wound Narrative: Sacral wounds. Refer to nursing or wound care notes Neuro moves all extremities and no focal motor deficits Assessment & Plan Assessment/Plan (1) Debility: (2) Depression: (3) Anxiety: (4) Chronic pain: QUALIFIERS: Chronic pain type: other chronic pain Qualified Code(s): G89.29 - Other chronic pain (5) Sacral decubitus ulcer, stage III: (6) Decubitus ulcer of buttock, stage 2: (7) Rheumatoid arthritis: QUALIFIERS: Rheumatoid arthritis location: unspecified site Rheumatoid factor presence: unspecified presence Qualified Code(s): M06.9 - Rheumatoid arthritis, unspecified (8) Iron deficiency anemia: QUALIFIERS: Iron deficiency anemia type: inadequate dietary iron intake Qualified Code(s): D50.8 - Other iron deficiency anemias PLAN: DEMETRIO KAISER, is a 85 F seen for Palliative f/u at request of staff for medication review and possible adjustment. She was referred for management of debility, weight loss and functional decline. As of 07/13 during initial palliative care consultation, patient was not sure if she wanted to pursue services at that time. She now feels palliative would be beneficial. 1. Chronic pain/RA: 07/13: May benefit from routine Oxycodone dose with PRN. Not candidate for Methadone with h/o prolonged QT. Lyrica or Gabapentin may be an option, however at risk for falls w/polypharmacy. Arthritis compound appears to be effective. 07/18: Recommend scheduling oxycodone 5 mg TID; AND 5 mg every 4 hours breakthrough pain for better overall pain control. ?Palliative would not be prescribing opioids, patient is more appropriate for pain management. She verbalized understanding. 2. Debility/depression/anxiety: Debility likely related to poor nutritional intake, RA. Poor appetite at baseline. Antidepressant/anxiolytic may be beneficial for appetite and mood. PT/OT as able. Palliative willing to provide support and symptom management. 07/18: She does appear hospice appropriate, declines. ?Start buspirone 5mg BID (I put in order) for anxiety and depression, better choice than SSRI secondary to prolonged QT. May increase to 5mg TID if tolerates for a week or so. 3. Decub ulcers: Managed by attending/specialist. There is concern when patient returns home she will continue to have worsening decubitus ulcers. Her spouse is in wheelchair and is unable to care for her. She does have some family and friends coming in to assist periodically. I suspect she will require ECF placement but may not agree. 07/13: recommended specialty mattress for wounds and for comfort 4. Anemia/chronic conditions complicate care and management. Defer to PCP and specialist. Thank you for the opportunity to participate in this patient's care, please do not hesitate to contact [facility] with any further questions or concerns. Palliative direct line is [phone]. Greater than 50% of F2F visit dedicated to education and counseling of palliative care services, medications, comorbid conditions and potential assistance with management, and plan of care moving forward. Start time: 1341 End time: 1422
[2021-07-18] MEDS: oxyCODONE 5 MG Tablet PO ×3 (14:04→22:08)
[2021-07-18 16:00] VITALS: BP 99/44; PULSE 72; RESP 18; TEMP 36.1; O2SAT 97
[2021-07-18] MEDS: Warfarin 0.5 MG Tablet PO (17:41)
[2021-07-18] MEDS: busPIRone 5 MG Tablet PO ×2 (17:41→20:41)
[2021-07-18] MEDS: 0.9% Saline Lock 10 ML Syringe IV (17:51)
[2021-07-18] MEDS: Atorvastatin Calcium 10 MG Tablet PO (20:40)
[2021-07-18 23:02] VITALS: PULSE 70; RESP 14
[2021-07-19] MEDS: Acetaminophen 500 MG Tablet 1000 MG PO (00:50)
[2021-07-19] MEDS: oxyCODONE 5 MG Tablet PO ×6 (02:01→22:02)
--- NOTE | 2021-07-19 02:07 | NURSING ---
Repositioned in bed on lt side for comfort, pillows placed behind back and under rt leg. Rt heel boot in place.
[2021-07-19 05:53] LABS: International Normalized Ratio 2.2; Prothrombin Time (Protime)PT. 23.5 SECONDS (11.7-14.9)
[2021-07-19] MEDS: Pantoprazole Sodium 20 MG Tablet PO (06:01)
[2021-07-19] MEDS: Polyethylene Glycol 3350 17 GM PACKET PO (06:01)
[2021-07-19] MEDS: Senna/Docusate Sodium 1 Tablet PO ×2 (06:01→17:38)
[2021-07-19] MEDS: Levothyroxine 75 MCG Tablet PO (06:01)
[2021-07-19 06:08] VITALS: BP 128/53; PULSE 64
[2021-07-19] MEDS: Juven (unflavored) Packet 1 PACKET PO ×2 (08:53→17:38)
[2021-07-19 10:00] VITALS: PULSE 70
[2021-07-19] MEDS: Iron Polysaccharide Complex 150 MG CAPSULE PO ×2 (11:16→17:36)
--- NOTE | 2021-07-19 14:14 | WOUNDNOTE ---
Dressing had been changed by nursing. left dressing in place at this time. patient states has been less painful.
[2021-07-19 15:25] VITALS: BP 109/49; PULSE 72; RESP 17; TEMP 36.7; O2SAT 98
[2021-07-19] MEDS: Arthritis Pain Compound 60 CLICK TUBE TOPICAL (17:35)
[2021-07-19] MEDS: Warfarin 0.5 MG Tablet PO (17:38)
[2021-07-19] MEDS: busPIRone 5 MG Tablet PO (17:38)
[2021-07-19] MEDS: Atorvastatin Calcium 10 MG Tablet PO (22:04)
[2021-07-20] MEDS: oxyCODONE 5 MG Tablet PO ×6 (01:52→21:10)
[2021-07-20 05:50] VITALS: BP 115/57; PULSE 91
[2021-07-20] MEDS: Polyethylene Glycol 3350 17 GM PACKET PO (05:51)
[2021-07-20] MEDS: Pantoprazole Sodium 20 MG Tablet PO (05:51)
[2021-07-20] MEDS: busPIRone 5 MG Tablet PO ×2 (05:51→17:32)
[2021-07-20] MEDS: Levothyroxine 75 MCG Tablet PO (05:51)
[2021-07-20] MEDS: Senna/Docusate Sodium 1 Tablet PO ×2 (05:51→17:32)
[2021-07-20] MEDS: Arthritis Pain Compound 60 CLICK TUBE TOPICAL ×2 (05:52→17:32)
[2021-07-20] MEDS: Juven (unflavored) Packet 1 PACKET PO ×2 (07:44→17:32)
[2021-07-20] MEDS: Iron Polysaccharide Complex 150 MG CAPSULE PO ×2 (07:44→17:32)
--- NOTE | 2021-07-20 12:13 | MDS.RN ---
Information for the mds was obtained from review of the clinical record, interview of resident, staff, and direct observation of resident's care.
[2021-07-20 14:02] VITALS: BP 102/39; PULSE 78; RESP 14; TEMP 36; O2SAT 99
[2021-07-20] MEDS: 0.9% Saline Lock 10 ML Syringe IV (14:32)
[2021-07-20] MEDS: 0.9% Normal Saline 1,000 ML 50 ML IV (14:32)
--- NOTE | 2021-07-20 14:41 | NURSING ---
pt low BP, asymptomatic. pt with poor PO intake/fluids. will encourage fluid intake. Dr Ben smith, new order for x1 liter Normal saline at 50cc/hr
[2021-07-20] MEDS: Warfarin 0.5 MG Tablet PO (17:32)
[2021-07-20] MEDS: Atorvastatin Calcium 10 MG Tablet PO (21:03)
[2021-07-21] MEDS: oxyCODONE 5 MG Tablet PO ×6 (01:40→21:26)
[2021-07-21] MEDS: Arthritis Pain Compound 60 CLICK TUBE TOPICAL ×2 (05:12→17:27)
[2021-07-21] MEDS: Polyethylene Glycol 3350 17 GM PACKET PO (05:12)
[2021-07-21] MEDS: busPIRone 5 MG Tablet PO ×2 (05:13→17:28)
[2021-07-21] MEDS: Senna/Docusate Sodium 1 Tablet PO ×2 (05:13→17:28)
[2021-07-21] MEDS: Levothyroxine 75 MCG Tablet PO (05:13)
[2021-07-21] MEDS: Pantoprazole Sodium 20 MG Tablet PO (05:13)
[2021-07-21] MEDS: Iron Polysaccharide Complex 150 MG CAPSULE PO ×2 (07:45→17:28)
[2021-07-21] MEDS: Juven (unflavored) Packet 1 PACKET PO ×2 (07:45→17:28)
[2021-07-21 10:00] VITALS: PULSE 77; RESP 16; O2SAT 93
[2021-07-21 17:07] VITALS: BP 120/67; PULSE 90; RESP 19; TEMP 36.1; O2SAT 96
[2021-07-21] MEDS: Warfarin 0.5 MG Tablet PO (17:28)
[2021-07-21] MEDS: Atorvastatin Calcium 10 MG Tablet PO (21:27)
--- NOTE | 2021-07-21 21:46 | NURSING ---
Drsg to sacrum and buttock coming off with turning, dressing changed per order, pt turned for comfort, assisted to call Don, pt appreciative.
[2021-07-22] MEDS: oxyCODONE 5 MG Tablet PO ×6 (02:08→21:59)
[2021-07-22] MEDS: Senna/Docusate Sodium 1 Tablet PO ×2 (06:49→17:53)
[2021-07-22] MEDS: Polyethylene Glycol 3350 17 GM PACKET PO (06:49)
[2021-07-22] MEDS: Pantoprazole Sodium 20 MG Tablet PO (06:50)
[2021-07-22] MEDS: busPIRone 5 MG Tablet PO ×2 (06:50→17:53)
[2021-07-22] MEDS: Levothyroxine 75 MCG Tablet PO (06:50)
[2021-07-22] MEDS: Arthritis Pain Compound 60 CLICK TUBE TOPICAL ×2 (06:50→17:53)
[2021-07-22] MEDS: Juven (unflavored) Packet 1 PACKET PO ×2 (08:19→17:53)
[2021-07-22] MEDS: Iron Polysaccharide Complex 150 MG CAPSULE PO ×2 (08:19→17:53)
[2021-07-22] MEDS: 0.9% Saline Lock 10 ML Syringe IV (09:41)
[2021-07-22 14:49] VITALS: BP 119/76; PULSE 76; RESP 14; TEMP 36; O2SAT 95
[2021-07-22] MEDS: Bisacodyl 5 MG Tablet 10 MG PO (16:34)
[2021-07-22] MEDS: Warfarin 0.5 MG Tablet PO (17:53)
[2021-07-22] MEDS: Atorvastatin Calcium 10 MG Tablet PO (21:59)
[2021-07-22 22:13] VITALS: PULSE 73; RESP 16; O2SAT 95
[2021-07-23] MEDS: oxyCODONE 5 MG Tablet PO ×6 (02:05→22:19)
[2021-07-23 05:48] VITALS: BP 107/53; PULSE 64
[2021-07-23] MEDS: Polyethylene Glycol 3350 17 GM PACKET PO (05:49)
[2021-07-23] MEDS: busPIRone 5 MG Tablet PO ×2 (05:49→16:51)
[2021-07-23] MEDS: Arthritis Pain Compound 60 CLICK TUBE TOPICAL ×2 (05:50→16:51)
[2021-07-23] MEDS: Senna/Docusate Sodium 1 Tablet PO (05:50)
[2021-07-23] MEDS: Levothyroxine 75 MCG Tablet PO (05:50)
[2021-07-23] MEDS: Pantoprazole Sodium 20 MG Tablet PO (05:50)
[2021-07-23] MEDS: Bisacodyl 5 MG Tablet 10 MG PO (05:51)
[2021-07-23 08:07] LABS: International Normalized Ratio 2.2; Prothrombin Time (Protime)PT. 23.8 SECONDS (11.7-14.9)
[2021-07-23] MEDS: Iron Polysaccharide Complex 150 MG CAPSULE PO ×2 (09:05→16:51)
[2021-07-23] MEDS: Juven (unflavored) Packet 1 PACKET PO ×2 (09:05→16:51)
[2021-07-23 10:00] VITALS: RESP 18
[2021-07-23 15:03] VITALS: BP 112/55; PULSE 72; RESP 16; TEMP 36.2; O2SAT 97
--- NOTE | 2021-07-23 15:42 | NURSING ---
Pt's last Bowel Movement was on 07/18/21 Bisacodyl and Prune juice was administered this am with no results Dr. Contreras notified. New order for Magnesium Citrate 300ml. Will continue to monitor pt call light within reach.
[2021-07-23] MEDS: Magnesium Citrate 300 ML PO (16:48)
[2021-07-23] MEDS: Warfarin 0.5 MG Tablet PO (16:51)
[2021-07-23] MEDS: Atorvastatin Calcium 10 MG Tablet PO (22:21)
[2021-07-24] MEDS: oxyCODONE 5 MG Tablet PO ×6 (02:12→22:43)
--- NOTE | 2021-07-24 03:10 | NURSING ---
Pt having multiple small, loose bm's during the night. Dressing to sacrum changed twice during this shift d/t soiling from bm. Large mepilex placed on top of dressing to try to protect wound .
[2021-07-24 06:05] VITALS: BP 115/55; PULSE 65
[2021-07-24] MEDS: busPIRone 5 MG Tablet PO ×2 (06:07→18:03)
[2021-07-24] MEDS: Levothyroxine 75 MCG Tablet PO (06:07)
[2021-07-24] MEDS: Pantoprazole Sodium 20 MG Tablet PO (06:07)
[2021-07-24] MEDS: Senna/Docusate Sodium 1 Tablet PO ×2 (06:07→18:03)
[2021-07-24] MEDS: Arthritis Pain Compound 60 CLICK TUBE TOPICAL ×2 (06:15→18:03)
[2021-07-24] MEDS: Iron Polysaccharide Complex 150 MG CAPSULE PO ×2 (09:00→18:02)
[2021-07-24] MEDS: Juven (unflavored) Packet 1 PACKET PO ×2 (09:00→18:02)
--- NOTE | 2021-07-24 15:50 | WOUNDNOTE ---
wound photo: right upper buttock
--- NOTE | 2021-07-24 15:51 | WOUNDNOTE ---
wound photo: sacrum
[2021-07-24 16:11] VITALS: BP 112/58; PULSE 109; RESP 17; TEMP 36; O2SAT 96
[2021-07-24] MEDS: Warfarin 0.5 MG Tablet PO (18:02)
[2021-07-24] MEDS: Atorvastatin Calcium 10 MG Tablet PO (20:14)
[2021-07-24] MEDS: Acetaminophen 500 MG Tablet 1000 MG PO (20:16)
[2021-07-24 22:00] VITALS: PULSE 74; O2SAT 95
[2021-07-25] MEDS: oxyCODONE 5 MG Tablet PO ×6 (01:59→21:45)
[2021-07-25] MEDS: busPIRone 5 MG Tablet PO ×2 (04:28→17:57)
[2021-07-25] MEDS: Arthritis Pain Compound 60 CLICK TUBE TOPICAL ×2 (04:28→17:56)
[2021-07-25] MEDS: Pantoprazole Sodium 20 MG Tablet PO (04:28)
[2021-07-25] MEDS: Levothyroxine 75 MCG Tablet PO (04:28)
[2021-07-25] MEDS: Senna/Docusate Sodium 1 Tablet PO ×2 (04:28→17:57)
[2021-07-25 06:00] LABS: Absolute Lymphocyte Count 2.47 X10^3/uL (0.83-4.51); Basophil# 0.09 X10^3/uL; Basophil% 1.2 % (0-1); Eosinophil# 0.32 X10^3/uL; Eosinophils% 4.2 % (0-5); Hematocrit 34.6 % (37-47); Hemoglobin 9.9 g/dL (12.0-15.0); Lymphocyte # 2.47 X10^3/ul (0.83-4.51); Lymphocyte % 32.1 % (19-41); Mean Corp Hgb Conc 28.6 g/dL (32-36); Mean Corpuscular Hgb 22.3 pg (27.0-32.0); Mean Corpuscular Volume 77.9 fL (81-99); Mean Platelet Vol. 8.8 fl (6.2-12.0); Monocyte# 0.82 X10^3/uL; Monocyte% 10.6 % (0-10); NRBC Flagged by Analyzer 0 % (0-5); Neutrophil # 3.97 X10^3/uL (2.7-7.7); Neutrophil % 51.5 % (47-70); Platelet Count 578 K/mm3 (150-450); RBC Distribution Width CV 19.8 % (11.6-14.6); RBC Distribution Width SD 55.1 fl (35.1-43.9); Red Blood Count 4.44 M/mm3 (4.2-5.4); White Blood Count 7.7 K/mm3 (4.4-11.0)
--- NOTE | 2021-07-25 06:20 | PCA ---
at this time this CORPORATE LIBRARIAN went in and washed pt up and turned on her right side.
[2021-07-25 06:27] LABS: Anion Gap 3 (5-15); BUN 33 mg/dL (7-18); BUN/Creat Ratio 64.8 RATIO (10-20); Calcium,Total 8.4 mg/dL (8.5-10.1); Chloride 100 mmol/L (98-107); Creatinine, Serum 0.51 mg/dL (0.55-1.02); EST Glomerular Filtration Rate 122 mL/min (>60); Est Glom Filt Rate - Afr Amer 148 mL/min (>60); Estimated Creatinine Clearance 29.15 ml/min; Glucose 100 mg/dL (74-106); Potassium 4.5 mmol/L (3.5-5.1); Sodium Level 135 mmol/L (136-145)
--- NOTE | 2021-07-25 08:20 | PCA ---
at this time went in and turned pt to left side call light in reach
[2021-07-25] MEDS: Juven (unflavored) Packet 1 PACKET PO ×2 (09:10→17:57)
[2021-07-25] MEDS: Iron Polysaccharide Complex 150 MG CAPSULE PO ×2 (09:10→17:57)
--- NOTE | 2021-07-25 09:30 | PCA ---
went in at this time to check on pt
--- NOTE | 2021-07-25 10:20 | PCA ---
turned pt to her right side at this time
[2021-07-25 16:43] VITALS: BP 105/57; PULSE 77; RESP 15; TEMP 36.4; O2SAT 95
[2021-07-25] MEDS: Warfarin 0.5 MG Tablet PO (17:57)
[2021-07-25] MEDS: Atorvastatin Calcium 10 MG Tablet PO (21:45)
--- NOTE | 2021-07-26 00:15 | PCA ---
turned pt to left side and pulled up bed call light in reach
--- NOTE | 2021-07-26 02:05 | PCA ---
pt refused to be turned at this time call light in reach
[2021-07-26] MEDS: oxyCODONE 5 MG Tablet PO ×6 (02:58→23:09)
--- NOTE | 2021-07-26 03:00 | NURSING ---
This Nurse went in to administer pain medication. Attempted to reposition patient and she refused.
[2021-07-26] MEDS: Senna/Docusate Sodium 1 Tablet PO ×2 (04:06→17:13)
[2021-07-26] MEDS: Arthritis Pain Compound 60 CLICK TUBE TOPICAL ×2 (04:06→17:14)
[2021-07-26] MEDS: Pantoprazole Sodium 20 MG Tablet PO (04:06)
[2021-07-26] MEDS: busPIRone 5 MG Tablet PO ×2 (04:06→17:13)
[2021-07-26] MEDS: Polyethylene Glycol 3350 17 GM PACKET PO (04:06)
[2021-07-26] MEDS: Acetaminophen 500 MG Tablet 1000 MG PO (04:08)
[2021-07-26] MEDS: Levothyroxine 75 MCG Tablet PO (04:15)
--- NOTE | 2021-07-26 04:25 | NURSING ---
Patient calling out in pain. This Nurse went into assess patient. PRN Tylenol given. This Nurse also massaged patients shoulders. Fresh ice water also given at this time.
[2021-07-26 06:14] LABS: International Normalized Ratio 1.9; Prothrombin Time (Protime)PT. 21.4 SECONDS (11.7-14.9)
[2021-07-26] MEDS: Iron Polysaccharide Complex 150 MG CAPSULE PO ×2 (07:49→17:13)
[2021-07-26] MEDS: Juven (unflavored) Packet 1 PACKET PO ×2 (07:49→17:14)
[2021-07-26 14:14] VITALS: BP 126/60; PULSE 80; RESP 16; TEMP 36.3; O2SAT 94
--- NOTE | 2021-07-26 14:20 | NURSING ---
Pt in bed on right side at this time. Asked pt if she would like to go to activity. Pt refused pt stated she was having pain. Medicated pt with scheduled oxycodone.
[2021-07-26] MEDS: Warfarin 0.5 MG Tablet PO (17:13)
[2021-07-26 22:53] VITALS: PULSE 76; RESP 14; O2SAT 93
[2021-07-26] MEDS: Nystatin Powder 15gm Bottle 1 APPLIC TOPICAL (23:10)
[2021-07-26] MEDS: Atorvastatin Calcium 10 MG Tablet PO (23:11)
[2021-07-27] MEDS: oxyCODONE 5 MG Tablet PO ×6 (02:05→22:07)
[2021-07-27] MEDS: Nystatin Powder 15gm Bottle 1 APPLIC TOPICAL ×2 (06:20→17:38)
[2021-07-27] MEDS: Senna/Docusate Sodium 1 Tablet PO ×2 (06:21→17:38)
[2021-07-27] MEDS: Pantoprazole Sodium 20 MG Tablet PO (06:21)
[2021-07-27] MEDS: Polyethylene Glycol 3350 17 GM PACKET PO (06:21)
[2021-07-27] MEDS: Levothyroxine 75 MCG Tablet PO (06:21)
[2021-07-27] MEDS: busPIRone 5 MG Tablet PO ×2 (06:22→17:38)
[2021-07-27] MEDS: Arthritis Pain Compound 60 CLICK TUBE TOPICAL ×2 (06:22→17:39)
[2021-07-27] MEDS: Juven (unflavored) Packet 1 PACKET PO ×2 (08:59→17:43)
[2021-07-27] MEDS: Iron Polysaccharide Complex 150 MG CAPSULE PO ×2 (08:59→17:38)
[2021-07-27 10:00] VITALS: PULSE 75; RESP 16; O2SAT 96
[2021-07-27 11:50] VITALS: BP 108/56; PULSE 87; RESP 16; TEMP 36.2; O2SAT 94
--- NOTE | 2021-07-27 14:35 | CASEMGMT ---
Social Work BILLIE spoke with pt dgt Lakia and Hasmukh on phone. BILLIE inquired about d/c plan. Lakia states no decision has been made at this time as they are waiting on more information from [facility]. BILLIE placed call to Isak at [facility] and requested she speak with Lakia. Return call from Isak stating she did speak with Lakia and Lakia has further questions regarding pt progress in therapy. It may benefit to meet with pt and family face to face to discuss discharge plans. BILLIE will continue to follow. [facility]
[2021-07-27] MEDS: Warfarin 0.5 MG Tablet PO (17:40)
[2021-07-27] MEDS: Atorvastatin Calcium 10 MG Tablet PO (22:07)
[2021-07-28] MEDS: oxyCODONE 5 MG Tablet PO ×6 (01:20→21:28)
--- NOTE | 2021-07-28 01:20 | NURSING ---
Patient called out in pain. Oxycodone given per order and Patient repositioned at this time.
[2021-07-28] MEDS: Arthritis Pain Compound 60 CLICK TUBE TOPICAL ×2 (05:18→17:57)
[2021-07-28] MEDS: Senna/Docusate Sodium 1 Tablet PO ×2 (05:18→18:03)
[2021-07-28] MEDS: Levothyroxine 75 MCG Tablet PO (05:18)
[2021-07-28] MEDS: Polyethylene Glycol 3350 17 GM PACKET PO (05:18)
[2021-07-28] MEDS: busPIRone 5 MG Tablet PO ×2 (05:18→17:58)
[2021-07-28] MEDS: Pantoprazole Sodium 20 MG Tablet PO (05:18)
[2021-07-28] MEDS: Nystatin Powder 15gm Bottle 1 APPLIC TOPICAL ×2 (05:19→18:03)
[2021-07-28] MEDS: Juven (unflavored) Packet 1 PACKET PO ×2 (07:50→17:57)
[2021-07-28] MEDS: Iron Polysaccharide Complex 150 MG CAPSULE PO ×2 (07:50→17:57)
[2021-07-28 16:36] VITALS: BP 117/53; PULSE 84; RESP 12; TEMP 36; O2SAT 94
[2021-07-28] MEDS: Warfarin 0.5 MG Tablet PO (17:57)
[2021-07-28] MEDS: Atorvastatin Calcium 10 MG Tablet PO (21:29)
[2021-07-29] MEDS: oxyCODONE 5 MG Tablet PO ×6 (01:26→20:36)
[2021-07-29] MEDS: Polyethylene Glycol 3350 17 GM PACKET PO (05:15)
[2021-07-29] MEDS: Senna/Docusate Sodium 1 Tablet PO ×2 (05:15→17:37)
[2021-07-29] MEDS: busPIRone 5 MG Tablet PO ×2 (05:15→17:37)
[2021-07-29] MEDS: Arthritis Pain Compound 60 CLICK TUBE TOPICAL ×2 (05:15→17:36)
[2021-07-29] MEDS: Pantoprazole Sodium 20 MG Tablet PO (05:16)
[2021-07-29] MEDS: Levothyroxine 75 MCG Tablet PO (05:16)
[2021-07-29] MEDS: Nystatin Powder 15gm Bottle 1 APPLIC TOPICAL ×2 (05:16→17:38)
[2021-07-29] MEDS: Juven (unflavored) Packet 1 PACKET PO ×2 (08:16→17:37)
[2021-07-29] MEDS: Iron Polysaccharide Complex 150 MG CAPSULE PO ×2 (08:16→17:37)
[2021-07-29 10:00] VITALS: PULSE 72; RESP 16; O2SAT 96
--- NOTE | 2021-07-29 12:00 | NURSING ---
pt finished eating meal, dressings changed to sacrum/rt hip/buttocks. pt repositioned to LT side with pillows supporting RLE. avila intact and draining yellow urine. pt pleasant and cooperative with care. foam boot on foot. call light and personal items in reach.
[2021-07-29 14:17] VITALS: BP 106/40; PULSE 73; RESP 16; TEMP 36.1; O2SAT 96
[2021-07-29] MEDS: Warfarin 0.5 MG Tablet PO (17:37)
[2021-07-29] MEDS: Atorvastatin Calcium 10 MG Tablet PO (20:29)
[2021-07-30] MEDS: oxyCODONE 5 MG Tablet PO ×6 (02:18→22:13)
[2021-07-30] MEDS: Polyethylene Glycol 3350 17 GM PACKET PO (04:50)
[2021-07-30] MEDS: Nystatin Powder 15gm Bottle 1 APPLIC TOPICAL ×2 (04:50→17:29)
[2021-07-30] MEDS: busPIRone 5 MG Tablet PO ×2 (04:50→17:28)
[2021-07-30] MEDS: Levothyroxine 75 MCG Tablet PO (04:51)
[2021-07-30] MEDS: Pantoprazole Sodium 20 MG Tablet PO (04:51)
[2021-07-30] MEDS: Senna/Docusate Sodium 1 Tablet PO ×2 (04:51→17:31)
[2021-07-30] MEDS: Arthritis Pain Compound 60 CLICK TUBE TOPICAL ×2 (04:56→17:29)
[2021-07-30 06:23] LABS: International Normalized Ratio 1.4; Prothrombin Time (Protime)PT. 16.2 SECONDS (11.7-14.9)
[2021-07-30] MEDS: Juven (unflavored) Packet 1 PACKET PO ×2 (08:24→17:29)
[2021-07-30] MEDS: Iron Polysaccharide Complex 150 MG CAPSULE PO ×2 (08:24→17:28)
--- NOTE | 2021-07-30 10:39 | WOUNDNOTE ---
Pt is currently up in the chair. will assess the sacral and buttock wounds later today or later this week. Pt denies needs at this time.
[2021-07-30 11:47] VITALS: BP 105/54; PULSE 83; RESP 18; TEMP 36.7; O2SAT 99
--- NOTE | 2021-07-30 18:34 | NURSING ---
Dressing changed to Coccyx and Right Hip. Wound Cleansed with normal saline and applied Aquacel ag and ABD.
[2021-07-30] MEDS: Atorvastatin Calcium 10 MG Tablet PO (22:12)
[2021-07-31] MEDS: oxyCODONE 5 MG Tablet PO ×6 (02:33→21:20)
[2021-07-31] MEDS: Senna/Docusate Sodium 1 Tablet PO ×2 (05:44→17:22)
[2021-07-31] MEDS: busPIRone 5 MG Tablet PO ×2 (05:44→17:21)
[2021-07-31] MEDS: Pantoprazole Sodium 20 MG Tablet PO (05:44)
[2021-07-31] MEDS: Levothyroxine 75 MCG Tablet PO (05:44)
[2021-07-31] MEDS: Polyethylene Glycol 3350 17 GM PACKET PO (05:44)
[2021-07-31] MEDS: Arthritis Pain Compound 60 CLICK TUBE TOPICAL ×2 (05:45→17:22)
[2021-07-31] MEDS: Nystatin Powder 15gm Bottle 1 APPLIC TOPICAL ×2 (05:48→17:22)
[2021-07-31] MEDS: Iron Polysaccharide Complex 150 MG CAPSULE PO ×2 (09:07→17:22)
[2021-07-31] MEDS: Juven (unflavored) Packet 1 PACKET PO ×2 (09:07→17:21)
[2021-07-31 10:00] VITALS: PULSE 74; RESP 16; O2SAT 98
--- NOTE | 2021-07-31 10:57 | WOUNDNOTE ---
Pt is currently up in chair again. nursing states that they will change the dressing later today once patient is back to bed. wounds have been improving. will continue to monitor.
[2021-07-31 14:31] VITALS: BP 115/57; PULSE 84; RESP 14; TEMP 36.1; O2SAT 96
--- NOTE | 2021-07-31 16:29 | CASEMGMT ---
Social Work Telephone call to patient spouse, Hasmukh. This social sciences professor communicating that discharge date has been set for 08/07/2021. Hasmukh voicing understanding. This social sciences professor communicating that team is recommending for patient to transitional to a retirement home due to current level of needs. Don voicing understanding. Don unsure of decision at this time and would like to speak further with daughter, Ashlyn. Hasmukh and Ashlyn to discuss discharge plan further and get back to team. Will continue to follow. Zay PYLE, DEBBIE
--- NOTE | 2021-07-31 20:23 | DS.PCM_ITS ---
Providers Date of Admission: 07/10/21 Primary Care Physician: Dr. Magy Calero MD Consultations 07/11/21 00:18 Consult: Onc/Wound/auto radio mechanic Routine Comment: Reason For Visit: SACRAL DECUBITUS ULCER STAGE 3 Diagnosis Discharge Diagnosis (1) Debility: Status: Acute Code(s): R53.81 - Other malaise (2) Depression: Status: Acute Code(s): F32.9 - Major depressive disorder, single episode, unspecified (3) Anxiety: Status: Acute Code(s): F41.9 - Anxiety disorder, unspecified (4) Chronic pain: Status: Chronic Code(s): G89.29 - Other chronic pain Qualifiers: Chronic pain type: other chronic pain Qualified Code(s): G89.29 - Other chronic pain (5) Sacral decubitus ulcer, stage III: Status: Acute Code(s): L89.153 - Pressure ulcer of sacral region, stage 3 (6) Decubitus ulcer of buttock, stage 2: Status: Acute Code(s): L89.302 - Pressure ulcer of unspecified buttock, stage 2 (7) Rheumatoid arthritis: Status: Acute Code(s): M06.9 - Rheumatoid arthritis, unspecified Qualifiers: Rheumatoid arthritis location: unspecified site Rheumatoid factor presence: unspecified presence Qualified Code(s): M06.9 - Rheumatoid arthritis, unspecified (8) Iron deficiency anemia: Status: Acute Code(s): D50.9 - Iron deficiency anemia, unspecified Qualifiers: Iron deficiency anemia type: inadequate dietary iron intake Qualified Code(s): D50.8 - Other iron deficiency anemias Medications at Discharge Home Medications Arthritis Pain Compound 0 click TOPICAL BID #0 07/31/21 acetaminophen 1,000 mg PO Q6H PRN PRN #0 tab 07/31/21 [id number]-[id number]-[id number]-[id number] [Jerry (with collagen)] 1 packet PO BIDCM #0 ea 07/31/21 atorvastatin 10 mg PO QHS #0 tab 07/31/21 bisacodyl 10 mg PO DAILY PRN #0 tab 07/31/21 buspirone 5 mg PO BID #0 tab 07/31/21 levothyroxine 75 mcg PO DAILY@0600 #0 tab 07/31/21 melatonin 10 mg PO QHS PRN #0 tab 07/31/21 nystatin [Nyamyc] 1 applic TOPICAL BID #0 g 07/31/21 oxycodone 5 mg PO Q4 3 Days #18 tab 07/31/21 pantoprazole 20 mg PO DAILY #0 tab 07/31/21 polyethylene glycol 3350 [HealthyLax] 17 g PO DAILY #0 ea 07/31/21 polysaccharide iron complex [Ferrex 150] 150 mg PO BIDCM #0 cap 07/31/21 sennosides-docusate sodium [Stool Softener-Stimulant Laxat] 1 tab PO BID #0 tab 07/31/21 warfarin [Jantoven] 1 mg PO DINNER #0 tab 07/31/21 Hospital Course Operations None Procedures None Summary of Care Provided Minutes Spent on Discharge: 35 Hospital Course: 85 year old female with below past medical history significant for multiple pressure ulcers of buttock/sacrum, admitted to TCU with debility, here for rehabilitation, strengthening, wound care, prior to discharge home with . [facility], Skilled PT/OT/wound care. Physical Exam Const alert and oriented x3 General Appearance: cooperative HEENT normocephalic Eyes PERRL and EOMs intact bilaterally Neck supple, no JVD and no carotid bruits Resp normal respiratory effort, normal air movement and clear to auscultation bilaterally Cardio regular rate and regular rhythm GI normal to inspection, nondistended, normoactive bowel sounds, non-tender and non-distended Extremity normal capillary refill General Extremity: Negative for edema Skin no rashes or lesions noted General Skin Exam: no breakdown Psych affect normal Appearance: appropriate Weight / BMI Weight Weight: 42.411 kg ABG / Lab / Microbiology Data Result Diagrams: 07/25/21 05:05 07/25/21 05:05 Laboratory: Laboratory Results - last 24 hr 07/30/21 : COVID-19 (JAYME) Not Detected D/C Instructions Discharge Diet: No restrictions Discharge Activity: Return to Normal Activity, May Shower and Use Walker Weight Bearing Status: Weight bearing as tolerated Call your doctor if you observe: Fever of 101 or Higher, Inability to urinate, Inability to have a bowel movement, Shortness of breath, Dizziness, Fainting spells, Swelling in the ankles, Chest pain, Increased palpitations (irregular heartbeat) and Uncontrolled pain Additional Instructions: Discharge to [facility] 08/07/2021, Skilled PT/OT/wound care. Please Follow Up With: MAGY CALERO MD When: After discharge from SNF. Meaningful Use Info Meaningful Use Diagnoses (Choose all that apply): None applicable Discharge Plan Admission Admit Date/Time: 07/10/21 18:20 Primary Reason for Your Visit: Debility. Attending Provider: Kenan Contreras Chi Primary Care Provider: Magy Calero Instructions Additional Instructions / Restrictions: Discharge to [facility] 08/07/2021, Skilled PT/OT/wound care. Discharge Orders/Prescriptions Prescriptions: New Arthritis Pain Compound 0 click topical BID Qty: 0 RF: 0 buspirone 5 mg Tablet 5 mg PO BID Qty: 0 RF: 0 polyethylene glycol 3350 [HealthyLax] 17 gram Powder In Packet 17 g PO DAILY Qty: 0 RF: 0 atorvastatin 10 mg Tablet 10 mg PO QHS Qty: 0 RF: 0 polysaccharide iron complex [Ferrex 150] 150 mg iron Capsule 150 mg PO BIDCM Qty: 0 RF: 0 sennosides-docusate sodium [Stool Softener-Stimulant Laxat] 8.6-50 mg Tablet 1 tab PO BID Qty: 0 RF: 0 acetaminophen 500 mg Tablet 1,000 mg PO Q6H PRN PRN (Reason: Pain Score 1-3) Qty: 0 RF: 0 pantoprazole 20 mg Tablet,Delayed Release (Dr/Ec) 20 mg PO DAILY Qty: 0 RF: 0 levothyroxine 75 mcg Tablet 75 mcg PO DAILY@0600 Qty: 0 RF: 0 bisacodyl 5 mg Tablet,Delayed Release (Dr/Ec) 10 mg PO DAILY PRN (Reason: CONSTIPATION) Qty: 0 RF: 0 nystatin [Nyamyc] 100,000 unit/gram Powder 1 applic topical BID Qty: 0 RF: 0 warfarin [Jantoven] 1 mg Tablet 1 mg PO DINNER Qty: 0 RF: 0 oxycodone 5 mg Tablet 5 mg PO Q4 3 Days Qty: 18 RF: 0 melatonin 10 mg Tablet, Sublingual 10 mg PO QHS PRN (Reason: Insomnia) Qty: 0 RF: 0 Jerry (with collagen) 7-7-1.5 gram Powder In Packet 1 packet PO BIDCM Qty: 0 RF: 0 Discontinued levothyroxine 100 MCG tablet 75 mcg PO DAILY RF: 0 simvastatin 20 MG tablet 20 mg PO QHS RF: 0 hydrocodone-acetaminophen 1 TABLET tablet 1 tab PO Q6H PRN PRN (Reason: Pain) RF: 0 ferrous sulfate 325 MG tablet 325 mg PO BID RF: 0 warfarin 1 MG tablet 0.5 mg PO DAILY RF: 0 pantoprazole 40 MG tablet 20 mg PO DAILY RF: 0 mirtazapine 15 mg tablet 15 mg PO QHS RF: 0 Referrals / Follow Up: Magy Calero MD [Primary Care Provider] - Disposition Disposition (needs filled in before D/C Order can be placed): [facility] Care Facility
--- NOTE | 2021-07-31 20:39 | TREXTCAR_ITS ---
Diet 07/11/21 11:59 Diet: Regular - General Food consistency:: Regular Liquid Consistency:: Regular/Thin Is pt able to select menu?: Yes Diet Comments: 8 oz combs EC w/ brkft, magic cup w/ lunch and dinner; built up silverware Routine Orders/Code Status Suppository Type: Dulcolax 10mg Suppository Frequency: Daily PRN Routine Lab Work: INR (2x/week.) Code Status: Full Code Wound(s) SACRAL WOUND: Wound Type: Pressure Injury Dressing Change: AntiMicrobial (Aquacel AG, etc) OPEN AREAS X2 RIGHT KNEE: Wound Type: PT. STATES I SCRATCHED OPEN SOME SCABS Dressing Change: Dry Sterile Dressing RIGHT HIP OPEN AREA ( #1): Wound Type: OPEN AREA Dressing Change: Dry Sterile Dressing RIGHT HIP OPEN AREA (#2): Wound Type: OPEN AREA Dressing Change: Dry Sterile Dressing RIGHT FOOT 3RD DIGIT OPEN AREA/REDNESS: Wound Type: Open Area Dressing Change: Dry Sterile Dressing right upper buttock/hip (superior): Wound Type: wound Dressing Change: AntiMicrobial (Aquacel AG, etc) right upper buttock/hip (inferior): Wound Type: open area Dressing Change: AntiMicrobial (Aquacel AG, etc) right knee: Wound Type: Scabbing Dressing Change: per order Right ankle: Wound Type: Pressure Injury Dressing Change: Meipilex 07/28 Therapies Weight Bearing: Weight bearing as tolerated Extremity Affected:: Bilateral Lower Physical Therapy: Eval and Treat Occupational Therapy: Eval and Treat Problem/Diagnosis (1) Debility: Status: Acute (2) Depression: Status: Acute (3) Anxiety: Status: Acute (4) Chronic pain: Status: Chronic (5) Sacral decubitus ulcer, stage III: Status: Acute (6) Decubitus ulcer of buttock, stage 2: Status: Acute (7) Rheumatoid arthritis: Status: Acute (8) Iron deficiency anemia: Status: Acute Allergies/Procedures Done in Hospital Allergies amoxicillin [From Augmentin] Allergy (Verified 05/05/21 14:07) Hives azathioprine [From Imuran] Allergy (Verified 05/05/21 14:07) Hives ceftriaxone Allergy (Verified 05/05/21 14:07) Hives celecoxib Allergy (Verified 05/05/21 14:07) Hives clavulanic acid [From Augmentin] Allergy (Verified 05/05/21 14:07) Hives etodolac Allergy (Verified 05/05/21 14:07) Hives methotrexate Allergy (Verified 05/05/21 14:07) effect to liver NSAIDS (Non-Steroidal Anti-Inflamma Allergy (Verified 05/05/21 14:07) Hives Penicillins Allergy (Verified 05/05/21 14:07) Hives sulfamethoxazole Allergy (Verified 05/05/21 14:07) Hives arthritis medications Allergy (Uncoded 05/05/21 14:07) effected the liver Procedures: None Type of Care/Length of Stay Estimated LOS: Convalescent Care Less Than 30 days Type of Care Needed: Skilled Rehab Potential: Fair Prognosis: Fair Additional Orders/Day of Discharge Day of Discharge: 08/07/21 Dietary and Speech Recommendations Dietitian Recommendations/Changes: Will continue diet change of liberal Regular w/ combs ensure clear at breakfast, magic cup w/ lunch and dinner and built up silverware per res request. Will continue Jerry bid to help w/ wound healing if consumed. Speech Linguistic Eval Summary: Pt lives at home w/her . Pt reports daughter Lakia manages her medications via placing them into a pill box. Pt's then administers meds. Pt assists w/finance management via making checks out, but that her double-checks and makes sure everything is paid on time. Pt oriented to city, name of hospital, [facility]REW (w/min cues), year, month, day, time, reason for admission, and awareness of deficits, however could benefit from cont'd education on severity of deficits. Follow Up Care Please Follow Up With: MAGY CALERO MD When: FOR FOLLOW-UP CARE Discharge Plan Admission Admit Date/Time: 07/10/21 18:20 Primary Reason for Your Visit: Debility. Attending Provider: Kenan Contreras Chi Primary Care Provider: Magy Calero Instructions Additional Instructions / Restrictions: [facility]charge to [facility] 08/07/2021, Skilled PT/OT/wound care. Discharge Orders/Prescriptions Prescriptions: New Arthritis Pain Compound 0 click topical BID Qty: 0 RF: 0 buspirone 5 mg Tablet 5 mg PO BID Qty: 0 RF: 0 polyethylene glycol 3350 [HealthyLax] 17 gram Powder In Packet 17 g PO DAILY Qty: 0 RF: 0 atorvastatin 10 mg Tablet 10 mg PO QHS Qty: 0 RF: 0 polysaccharide iron complex [Ferrex 150] 150 mg iron Capsule 150 mg PO BIDCM Qty: 0 RF: 0 sennosides-docusate sodium [Stool Softener-Stimulant Laxat] 8.6-50 mg Tablet 1 tab PO BID Qty: 0 RF: 0 acetaminophen 500 mg Tablet 1,000 mg PO Q6H PRN PRN (Reason: Pain Score 1-3) Qty: 0 RF: 0 pantoprazole 20 mg Tablet,Delayed Release (Dr/Ec) 20 mg PO DAILY Qty: 0 RF: 0 levothyroxine 75 mcg Tablet 75 mcg PO DAILY@0600 Qty: 0 RF: 0 bisacodyl 5 mg Tablet,Delayed Release (Dr/Ec) 10 mg PO DAILY PRN (Reason: CONSTIPATION) Qty: 0 RF: 0 nystatin [Nyamyc] 100,000 unit/gram Powder 1 applic topical BID Qty: 0 RF: 0 warfarin [Jantoven] 1 mg Tablet 1 mg PO DINNER Qty: 0 RF: 0 oxycodone 5 mg Tablet 5 mg PO Q4 3 Days Qty: 18 RF: 0 melatonin 10 mg Tablet, Sublingual 10 mg PO QHS PRN (Reason: Insomnia) Qty: 0 RF: 0 Jerry (with collagen) 7-7-1.5 gram Powder In Packet 1 packet PO BIDCM Qty: 0 RF: 0 Discontinued levothyroxine 100 MCG tablet 75 mcg PO DAILY RF: 0 simvastatin 20 MG tablet 20 mg PO QHS RF: 0 hydrocodone-acetaminophen 1 TABLET tablet 1 tab PO Q6H PRN PRN (Reason: Pain) RF: 0 ferrous sulfate 325 MG tablet 325 mg PO BID RF: 0 warfarin 1 MG tablet 0.5 mg PO DAILY RF: 0 pantoprazole 40 MG tablet 20 mg PO DAILY RF: 0 mirtazapine 15 mg tablet 15 mg PO QHS RF: 0 Referrals / Follow Up: Magy Calero MD [Primary Care Provider] - Disposition Disposition (needs filled in before D/C Order can be placed): Senior Care Facility
[2021-07-31] MEDS: Atorvastatin Calcium 10 MG Tablet PO (21:21)
[2021-08-01] MEDS: oxyCODONE 5 MG Tablet PO ×6 (02:10→21:35)
[2021-08-01] MEDS: Acetaminophen 500 MG Tablet 1000 MG PO (02:45)
[2021-08-01] MEDS: Arthritis Pain Compound 60 CLICK TUBE TOPICAL ×2 (05:52→17:44)
[2021-08-01] MEDS: busPIRone 5 MG Tablet PO ×2 (05:53→17:43)
[2021-08-01] MEDS: Nystatin Powder 15gm Bottle 1 APPLIC TOPICAL ×2 (05:53→17:44)
[2021-08-01] MEDS: Polyethylene Glycol 3350 17 GM PACKET PO (05:53)
[2021-08-01] MEDS: Senna/Docusate Sodium 1 Tablet PO (05:54)
[2021-08-01] MEDS: Pantoprazole Sodium 20 MG Tablet PO (05:54)
[2021-08-01] MEDS: Levothyroxine 75 MCG Tablet PO (05:54)
[2021-08-01 07:23] LABS: Absolute Lymphocyte Count 2.39 X10^3/uL (0.83-4.51); Absolute Neutrophil Count 5.2 X10^3/uL (2.0-7.7); Basophil# 0.07 X10^3/uL; Basophil% 0.8 % (0-1); Eosinophil# 0.35 X10^3/uL; Eosinophils% 3.9 % (0-5); Hematocrit 34.1 % (37-47); Hemoglobin 10.2 g/dL (12.0-15.0); Lymphocyte # 2.39 X10^3/ul (0.83-4.51); Lymphocyte % 26.7 % (19-41); Mean Corp Hgb Conc 29.9 g/dL (32-36); Mean Corpuscular Hgb 23.1 pg (27.0-32.0); Mean Corpuscular Volume 77.3 fL (81-99); Mean Platelet Vol. 8.6 fl (6.2-12.0); Monocyte# 0.92 X10^3/uL; Monocyte% 10.3 % (0-10); NRBC Flagged by Analyzer 0 % (0-5); Neutrophil # 5.15 X10^3/uL (2.7-7.7); Neutrophil % 57.6 % (47-70); POSITIVE MORPHOLOGY YES; Platelet Count 536 K/mm3 (150-450); RBC Distribution Width CV 20.7 % (11.6-14.6); RBC Distribution Width SD 57.9 fl (35.1-43.9); Red Blood Count 4.41 M/mm3 (4.2-5.4); White Blood Count 8.9 K/mm3 (4.4-11.0)
[2021-08-01 07:25] LABS: Differential Indicated SCAN CRITERIA MET
[2021-08-01 07:50] LABS: Anisocytosis 1+
[2021-08-01] MEDS: Juven (unflavored) Packet 1 PACKET PO ×2 (07:55→17:43)
[2021-08-01] MEDS: Iron Polysaccharide Complex 150 MG CAPSULE PO ×2 (07:55→17:44)
[2021-08-01 08:13] LABS: Anion Gap 5 (5-15); BUN 44 mg/dL (7-18); BUN/Creat Ratio 73.2 RATIO (10-20); Calcium,Total 8.6 mg/dL (8.5-10.1); Chloride 100 mmol/L (98-107); EST Glomerular Filtration Rate 101 mL/min (>60); Est Glom Filt Rate - Afr Amer 122 mL/min (>60); Estimated Creatinine Clearance 28.54 ml/min; Glucose 102 mg/dL (74-106); Potassium 4.2 mmol/L (3.5-5.1); Sodium Level 133 mmol/L (136-145)
[2021-08-01 10:00] VITALS: PULSE 73; O2SAT 92
--- NOTE | 2021-08-01 11:15 | WOUNDNOTE ---
wound photo: right upper buttock
--- NOTE | 2021-08-01 11:16 | WOUNDNOTE ---
wound photo: sacrum
--- NOTE | 2021-08-01 15:05 | CASEMGMT ---
Social Work Telephone call to patient spouse, Ben. This social worker palliative care broached topic of senior care placement/discharge plan. Ben reports to still not be sure and request for this social worker palliative care to contact patient daughter, Ashlyn. Telephone call to Ashlyn. Ashlyn reports that plan is for Ashlyn and her sister to speak with Ben today and to get back to social worker palliative care on discharge plan. This social worker palliative care did go over option for senior care with hospice and private pay. Ashlyn reports to believe that patient will be able to afford private pay in a senior care for a short time and will not currently qualify for medicaid. Will continue to follow. Zay PYLE, DEBBIE
[2021-08-01 16:10] VITALS: BP 105/64; PULSE 66; RESP 16; TEMP 35.9; O2SAT 95
[2021-08-01] MEDS: Atorvastatin Calcium 10 MG Tablet PO (21:35)
[2021-08-02] MEDS: oxyCODONE 5 MG Tablet PO ×6 (02:05→21:12)
[2021-08-02 05:44] VITALS: BP 111/46; PULSE 69; RESP 18; TEMP 36.5; O2SAT 94
[2021-08-02] MEDS: busPIRone 5 MG Tablet PO ×2 (05:54→17:27)
[2021-08-02] MEDS: Polyethylene Glycol 3350 17 GM PACKET PO (05:54)
[2021-08-02] MEDS: Arthritis Pain Compound 60 CLICK TUBE TOPICAL ×2 (05:54→17:27)
[2021-08-02] MEDS: Pantoprazole Sodium 20 MG Tablet PO (05:55)
[2021-08-02] MEDS: Nystatin Powder 15gm Bottle 1 APPLIC TOPICAL ×2 (05:55→17:28)
[2021-08-02] MEDS: Levothyroxine 75 MCG Tablet PO (05:55)
[2021-08-02] MEDS: Senna/Docusate Sodium 1 Tablet PO ×2 (05:55→17:28)
[2021-08-02 06:49] LABS: International Normalized Ratio 1.6; Prothrombin Time (Protime)PT. 18.7 SECONDS (11.7-14.9)
[2021-08-02] MEDS: Juven (unflavored) Packet 1 PACKET PO ×2 (07:53→17:27)
[2021-08-02] MEDS: Iron Polysaccharide Complex 150 MG CAPSULE PO ×2 (07:53→17:27)
[2021-08-02 13:57] VITALS: BP 103/48; PULSE 78; RESP 16; TEMP 36.2; O2SAT 98
--- NOTE | 2021-08-02 16:21 | CASEMGMT ---
Addendum entered by Deidra Stern 08/03/21 16:38: Both SNFs can accept pt, but [facility] unsure of availability at DC date. Will update this worker on Friday. Pt's first choice is [facility]. Will continue to follow. Original Note: Social Work Spoke with daughter to answer her questions on SNF placement and difference between Palliative and Hospice. Dtr would like referral to hospice to discuss services. Contacted [facility] - they will schedule meeting with family. Provided dtr list of [facility] SNFs, per her request. Dtr spoke with pt and father and first choice is [facility], second choice is [facility]. Referrals made to both SNFs. Will continue to follow. Deidra Stern, LASHANDA COMMANDING OFFICER [employer]
[2021-08-02] MEDS: Warfarin 0.5 MG Tablet 1.5 MG PO (17:30)
[2021-08-02] MEDS: Atorvastatin Calcium 10 MG Tablet PO (21:12)
[2021-08-02 22:30] VITALS: RESP 18
[2021-08-02] MEDS: Acetaminophen 500 MG Tablet 1000 MG PO (23:51)
[2021-08-02] MEDS: MELATONIN 10 MG TABLET PO (23:51)
[2021-08-03] MEDS: oxyCODONE 5 MG Tablet PO ×6 (01:13→23:12)
[2021-08-03] MEDS: busPIRone 5 MG Tablet PO ×2 (05:43→17:53)
[2021-08-03] MEDS: Bisacodyl 5 MG Tablet 10 MG PO (05:43)
[2021-08-03] MEDS: Levothyroxine 75 MCG Tablet PO (05:43)
[2021-08-03] MEDS: Senna/Docusate Sodium 1 Tablet PO ×2 (05:43→17:53)
[2021-08-03] MEDS: Pantoprazole Sodium 20 MG Tablet PO (05:43)
[2021-08-03] MEDS: Polyethylene Glycol 3350 17 GM PACKET PO (05:43)
[2021-08-03] MEDS: Nystatin Powder 15gm Bottle 1 APPLIC TOPICAL ×2 (05:44→17:54)
[2021-08-03] MEDS: Arthritis Pain Compound 60 CLICK TUBE TOPICAL ×2 (05:44→17:54)
[2021-08-03 05:51] VITALS: BP 111/53; PULSE 62
[2021-08-03] MEDS: Juven (unflavored) Packet 1 PACKET PO ×2 (07:46→17:53)
[2021-08-03] MEDS: Iron Polysaccharide Complex 150 MG CAPSULE PO ×2 (07:46→17:52)
[2021-08-03] MEDS: Acetaminophen 500 MG Tablet 1000 MG PO (07:50)
[2021-08-03] MEDS: Warfarin 0.5 MG Tablet 1.5 MG PO (17:53)
[2021-08-03] MEDS: Atorvastatin Calcium 10 MG Tablet PO (23:13)
[2021-08-04 00:56] VITALS: PULSE 87; RESP 14
[2021-08-04] MEDS: oxyCODONE 5 MG Tablet PO ×6 (02:17→22:13)
[2021-08-04 06:59] VITALS: BP 131/62; PULSE 86; RESP 16; TEMP 36.3; O2SAT 96
[2021-08-04] MEDS: Senna/Docusate Sodium 1 Tablet PO ×2 (07:02→18:04)
[2021-08-04] MEDS: busPIRone 5 MG Tablet PO ×2 (07:02→18:01)
[2021-08-04] MEDS: Arthritis Pain Compound 60 CLICK TUBE TOPICAL ×2 (07:03→18:00)
[2021-08-04] MEDS: Pantoprazole Sodium 20 MG Tablet PO (07:03)
[2021-08-04] MEDS: Levothyroxine 75 MCG Tablet PO (07:03)
[2021-08-04] MEDS: Nystatin Powder 15gm Bottle 1 APPLIC TOPICAL ×2 (07:04→18:01)
[2021-08-04] MEDS: Polyethylene Glycol 3350 17 GM PACKET PO (07:04)
[2021-08-04] MEDS: Juven (unflavored) Packet 1 PACKET PO ×2 (09:15→17:59)
[2021-08-04] MEDS: Iron Polysaccharide Complex 150 MG CAPSULE PO ×2 (09:15→18:01)
[2021-08-04 16:00] VITALS: BP 133/87; PULSE 119; RESP 18; TEMP 36.9; O2SAT 95
[2021-08-04] MEDS: Warfarin 0.5 MG Tablet 1.5 MG PO (18:03)
[2021-08-04] MEDS: Atorvastatin Calcium 10 MG Tablet PO (22:13)
[2021-08-05] MEDS: Senna/Docusate Sodium 1 Tablet PO ×2 (05:30→18:17)
[2021-08-05] MEDS: oxyCODONE 5 MG Tablet PO ×5 (05:30→21:26)
[2021-08-05] MEDS: Pantoprazole Sodium 20 MG Tablet PO (05:30)
[2021-08-05] MEDS: Polyethylene Glycol 3350 17 GM PACKET PO (05:30)
[2021-08-05] MEDS: Levothyroxine 75 MCG Tablet PO (05:31)
[2021-08-05] MEDS: busPIRone 5 MG Tablet PO ×2 (05:31→18:17)
[2021-08-05] MEDS: Arthritis Pain Compound 60 CLICK TUBE TOPICAL ×2 (05:34→18:17)
[2021-08-05] MEDS: Nystatin Powder 15gm Bottle 1 APPLIC TOPICAL ×2 (05:35→18:17)
[2021-08-05] MEDS: Juven (unflavored) Packet 1 PACKET PO ×2 (08:36→18:26)
[2021-08-05] MEDS: Iron Polysaccharide Complex 150 MG CAPSULE PO ×2 (08:36→18:16)
[2021-08-05 15:35] VITALS: BP 102/47; PULSE 84; RESP 20; TEMP 36.2; O2SAT 96
[2021-08-05 21:10] LABS: International Normalized Ratio 2.6; Prothrombin Time (Protime)PT. 27.3 SECONDS (11.7-14.9)
[2021-08-05] MEDS: Warfarin 0.5 MG Tablet 1.5 MG PO (21:26)
[2021-08-05] MEDS: Atorvastatin Calcium 10 MG Tablet PO (21:27)
[2021-08-06] MEDS: oxyCODONE 5 MG Tablet PO ×6 (02:14→22:37)
[2021-08-06] MEDS: Acetaminophen 500 MG Tablet 1000 MG PO (03:39)
[2021-08-06] MEDS: Polyethylene Glycol 3350 17 GM PACKET PO (03:40)
[2021-08-06] MEDS: Senna/Docusate Sodium 1 Tablet PO ×2 (03:40→18:15)
[2021-08-06] MEDS: Pantoprazole Sodium 20 MG Tablet PO (03:40)
[2021-08-06] MEDS: Levothyroxine 75 MCG Tablet PO (03:41)
[2021-08-06] MEDS: busPIRone 5 MG Tablet PO ×2 (03:41→18:13)
[2021-08-06] MEDS: Arthritis Pain Compound 60 CLICK TUBE TOPICAL ×2 (03:43→18:11)
[2021-08-06] MEDS: Nystatin Powder 15gm Bottle 1 APPLIC TOPICAL ×2 (06:49→18:14)
[2021-08-06] MEDS: Juven (unflavored) Packet 1 PACKET PO ×2 (08:38→18:09)
[2021-08-06] MEDS: Iron Polysaccharide Complex 150 MG CAPSULE PO ×2 (08:38→18:10)
--- NOTE | 2021-08-06 09:45 | CASEMGMT ---
Addendum entered by Deidra Stern 08/06/21 16:46: Left message with State to follow up on PAS results. Addendum entered by Deidra Stern 08/06/21 11:38: Pt requesting to speak with this worker. Spoke with pt and she has concerns with DCing home as she needs two people to transfer/turn. Offered to have conference call with . Spoke with pt and and discussed help in the home. stated he was working on hiring people to help in the home. SW offered for pt to DC to [facility] until can get adequate help in the home. Pt prefers that option. agreeable. Contacted [facility], [facility] and [facility]. PASRR completed. Triggered for Level II evaluation. Submitted documents. Will continue to follow. Original Note: Social Work Received call from dtr Marcia that pt's met with hospice yesterday and they are able to take pt home with the appropriate equipment. Inquired about DC location as pt was originally DCing to SNF. Dtr stated now pt will be going home with hospice and equipment will be delivered to the home this date. Contacted [facility] to confirm details - confirmed - DME delivered by 3 pm and this worker to schedule transportation for 08/07. IDT updated. Cot transport scheduled for 08/07 through [facility] at 10 am. Notified family and hospice. Contacted [facility] and [facility] on change of DC. Plan: DC home with 08/07 with [facility] LASHANDA Calloway
--- NOTE | 2021-08-06 14:53 | WOUNDNOTE ---
wound photo: right upper buttock
--- NOTE | 2021-08-06 14:53 | WOUNDNOTE ---
wound photo: sacrum
[2021-08-06 15:12] VITALS: PULSE 78; RESP 16
[2021-08-06 16:36] VITALS: BP 105/53; PULSE 72; RESP 18; TEMP 36.3; O2SAT 98
[2021-08-06] MEDS: Warfarin 0.5 MG Tablet 1.5 MG PO (18:10)
[2021-08-06] MEDS: Atorvastatin Calcium 10 MG Tablet PO (22:39)
[2021-08-07] MEDS: oxyCODONE 5 MG Tablet PO ×6 (01:58→21:26)
[2021-08-07] MEDS: Nystatin Powder 15gm Bottle 1 APPLIC TOPICAL ×2 (05:57→17:55)
[2021-08-07] MEDS: Arthritis Pain Compound 60 CLICK TUBE TOPICAL ×2 (05:57→17:57)
[2021-08-07] MEDS: busPIRone 5 MG Tablet PO ×2 (05:58→17:52)
[2021-08-07] MEDS: Polyethylene Glycol 3350 17 GM PACKET PO (05:58)
[2021-08-07] MEDS: Senna/Docusate Sodium 1 Tablet PO ×2 (05:59→17:53)
[2021-08-07] MEDS: Levothyroxine 75 MCG Tablet PO (05:59)
[2021-08-07] MEDS: Pantoprazole Sodium 20 MG Tablet PO (05:59)
[2021-08-07] MEDS: Iron Polysaccharide Complex 150 MG CAPSULE PO ×2 (08:17→17:54)
[2021-08-07] MEDS: Juven (unflavored) Packet 1 PACKET PO ×2 (08:17→17:52)
[2021-08-07 08:49] VITALS: BP 127/48; PULSE 82; RESP 16; TEMP 36.4
[2021-08-07 09:02] VITALS: PULSE 82; RESP 16; O2SAT 99
--- NOTE | 2021-08-07 09:41 | NURSING ---
Called [facility], left message to return call to give report.
--- NOTE | 2021-08-07 10:24 | NURSING ---
Spoke with Noreen from [facility]. Nurse to nurse report provided.
[2021-08-07 15:34] VITALS: BP 109/64; PULSE 79; RESP 14; TEMP 36.3; O2SAT 97
[2021-08-07] MEDS: Warfarin 0.5 MG Tablet 1.5 MG PO (17:53)
[2021-08-07] MEDS: Atorvastatin Calcium 10 MG Tablet PO (21:26)
[2021-08-08] MEDS: oxyCODONE 5 MG Tablet PO ×3 (02:10→09:00)
[2021-08-08] MEDS: Arthritis Pain Compound 60 CLICK TUBE TOPICAL (05:30)
[2021-08-08] MEDS: Polyethylene Glycol 3350 17 GM PACKET PO (05:30)
[2021-08-08] MEDS: busPIRone 5 MG Tablet PO (05:31)
[2021-08-08] MEDS: Senna/Docusate Sodium 1 Tablet PO (05:31)
[2021-08-08] MEDS: Levothyroxine 75 MCG Tablet PO (05:31)
[2021-08-08] MEDS: Pantoprazole Sodium 20 MG Tablet PO (05:31)
[2021-08-08] MEDS: Nystatin Powder 15gm Bottle 1 APPLIC TOPICAL (05:32)
[2021-08-08 06:01] LABS: Absolute Lymphocyte Count 2.92 X10^3/uL (0.83-4.51); Absolute Neutrophil Count 5.2 X10^3/uL (2.0-7.7); Basophil# 0.07 X10^3/uL; Basophil% 0.7 % (0-1); Eosinophil# 0.29 X10^3/uL; Hematocrit 33.6 % (37-47); Lymphocyte # 2.92 X10^3/ul (0.83-4.51); Lymphocyte % 30.6 % (19-41); Mean Corp Hgb Conc 29.8 g/dL (32-36); Mean Corpuscular Hgb 22.7 pg (27.0-32.0); Mean Corpuscular Volume 76.2 fL (81-99); Mean Platelet Vol. 8.6 fl (6.2-12.0); Monocyte# 0.97 X10^3/uL; Monocyte% 10.2 % (0-10); NRBC Flagged by Analyzer 0 % (0-5); Neutrophil # 5.24 X10^3/uL (2.7-7.7); Neutrophil % 55.1 % (47-70); POSITIVE MORPHOLOGY YES; Platelet Count 491 K/mm3 (150-450); RBC Distribution Width CV 21.6 % (11.6-14.6); RBC Distribution Width SD 58.7 fl (35.1-43.9); Red Blood Count 4.41 M/mm3 (4.2-5.4); White Blood Count 9.5 K/mm3 (4.4-11.0)
[2021-08-08 06:04] LABS: Differential Indicated SCAN CRITERIA MET
[2021-08-08 06:19] LABS: Anisocytosis 1+
[2021-08-08 06:30] LABS: Anion Gap 2 (5-15); BUN 47 mg/dL (7-18); BUN/Creat Ratio 88.5 RATIO (10-20); Calcium,Total 8.7 mg/dL (8.5-10.1); Chloride 102 mmol/L (98-107); Creatinine, Serum 0.53 mg/dL (0.55-1.02); EST Glomerular Filtration Rate 117 mL/min (>60); Est Glom Filt Rate - Afr Amer 141 mL/min (>60); Estimated Creatinine Clearance 28.54 ml/min; Glucose 97 mg/dL (74-106); Potassium 4.3 mmol/L (3.5-5.1); Sodium Level 134 mmol/L (136-145)
--- NOTE | 2021-08-08 08:28 | CASEMGMT ---
Social Work Received rule out results from [facility] for Level II PAS. Notified pt, dtr, [facility] and [facility] for DC this date. [facility] for 10 am. LASHANDA Calloway
[2021-08-08] MEDS: Iron Polysaccharide Complex 150 MG CAPSULE PO (09:00)
[2021-08-08] MEDS: Juven (unflavored) Packet 1 PACKET PO (09:00)
[2021-08-08 09:25] VITALS: BP 106/56; PULSE 73; RESP 16; TEMP 36.9; O2SAT 97
== END 2021-08-08 10:00 | disposition hospice, inpatient (51) | DRG 592 ==
PROVIDERS: Admitting Provider Family Medicine Geriatric Medicine; PCP Family Medicine; Visit Provider Family Medicine Geriatric Medicine
DX: L89.153 Pressure ulcer of sacral region, stage 3 (principal); I26.99 Other pulmonary embolism without acute cor pulmonale; Z68.1 Body mass index [BMI] 19.9 or less, adult; L89.313 Pressure ulcer of right buttock, stage 3; K21.9 Gastro-esophageal reflux disease without esophagitis; E03.9 Hypothyroidism, unspecified; E78.5 Hyperlipidemia, unspecified; I10 Essential (primary) hypertension; M06.9 Rheumatoid arthritis, unspecified; G89.29 Other chronic pain; H91.93 Unspecified hearing loss, bilateral; Z86.718 Personal history of other venous thrombosis and embolism; Z89.612 Acquired absence of left leg above knee; Z79.899 Other long term (current) drug therapy; D50.8 Other iron deficiency anemias; L89.312 Pressure ulcer of right buttock, stage 2; F41.9 Anxiety disorder, unspecified; F32.9 Major depressive disorder, single episode, unspecified; R63.4 Abnormal weight loss
CPT/HCPCS: 36415; 36430; 80048; 85014; 85018; 85025; 85610; 86850; 86900; 86901; 86920; 86922; 87426; 87635; 92507; 92523; 97110; 97162; 97166; 97530; 97535; 97802; J7030; J7040; P9040; U0005; A4216; J1940; U0003

== ENCOUNTER → 2021-07-12 08:03 | Outpatient (CLI) | payer MEDICARE, OTHER, SELFPAY ==
[2021-07-12] VITALS (7 sets, daily range): BP systolic 111–136; BP diastolic 42–66; PULSE 77–88; RESP 16–18; TEMP 36.9–37.2; O2SAT 95–100
[2021-07-12] MEDS: 0.9% NaCl Peripheral Flush Adult/Peds IV (08:19)
[2021-07-12] MEDS: Furosemide 20 MG/2 ML VIAL IV (10:57)
== END ==
PROVIDERS: PCP Family Medicine; Referring Provider Family Medicine Geriatric Medicine; Visit Provider Family Medicine Geriatric Medicine
DX: D50.9 Iron deficiency anemia, unspecified (principal)
CPT/HCPCS: 36415; 36430; 86850; 86900; 86901; 86920; 86922; J7040; P9040; A4216; J1940